=== PATIENT | female | born 1935 ===

== ENCOUNTER 2016-12-24 09:51 | Inpatient (IN) | payer MEDICARE, OTHER ==
[2016-12-24 10:10] VITALS: BMI 29.2
[2016-12-24] MEDS ORDERED: (Novolin R) Insulin Human Regular 100 units/ml vial IV ONE (10:10)
[2016-12-24] MEDS ORDERED: Sodium Chloride 0.9% 1,000 ML IV ONE (10:10)
--- NOTE | 2016-12-24 10:12 | C.PDOC ---
History Of Present Illness The patient, a 81y/o female whose PMHx includes Dialysis (MWF), is brought to the ED by EMS for evaluation of altered mental status. As per family, patient has "not been herself" for the past 2 days. As per EMS, patient's family states that patient's BGL is over 400; family states patient usually appears confused when her BGL is either too high or too low. It is unclear when patient last had her dialysis session. Patient denies fever, pain or any other symptoms at this time. Patient is a poor historian, history obtained via automotive designer. Time Seen by Provider: 12/24/16 10:01 History Per: Patient, EMS, Family, Hvac R Tech History/Exam Limitations: Language Barrier Onset/Duration Of Symptoms: Days Onset Of Symptoms: Cannot Confirm Onset Current Symptoms Are (Timing): Still Present Usual Baseline: Alert Confused Exacerbating Factor(s): Unknown. denies: Fever Additional History Per: Patient, EMS, Family Associated Symptoms: Confused. denies: Fever Past Medical History Reviewed: Historical Data, Nursing Documentation, Vital Signs Vital Signs: Last Vital Signs Temp 98.5 F 12/24/16 12:17 Pulse 55 L 12/24/16 12:17 Resp 17 12/24/16 12:17 BP 182/77 H 12/24/16 12:17 Pulse Ox 96 12/24/16 12:35 - Medical History PMH: Arthritis, Asthma, Bronchitis, Cardia Arrhythmia, CHF, COPD (ASTHMA), Dementia, Depression, Diabetes (type 2), Emphysema, Fractures, HTN, Hypercholesterolemia, Migraine, End Stage Renal Disease (dialysis M,W,F), Chronic Kidney Disease, TIA (a few months ago.) Denies: HIV Surgical History: No Surg Hx - [facility] Procedures ASSISTANCE WITH RESPIRATORY VENTILATION, 24-96 HRS, CPAP (11/01/16) INSERTION OF INFUSION DEV INTO INF VENA CAVA, PERC APPROACH (10/06/15) PERFORMANCE OF URINARY FILTRATION, MULTIPLE (01/22/16) PERFORMANCE OF URINARY FILTRATION, SINGLE (11/01/16) Family History: States: Unknown Family Hx - Social History Hx Tobacco Use: No Hx Alcohol Use: No Hx Substance Use: No - Immunization History Hx Tetanus Toxoid Vaccination: Yes Hx Influenza Vaccination: Yes (06/2015) Hx Pneumococcal Vaccination: Yes (2014) Review Of Systems Except As Marked, All Systems Reviewed And Found Negative. Constitutional: Negative for: Fever Neurological: Positive for: Confusion, Altered Mental Status Physical Exam - Physical Exam Appears: Non-toxic, No Acute Distress Skin: Normal Color, Warm, Dry Head: Atraumatic, Normacephalic Eye(s): bilateral: Normal Inspection, EOMI Oral Mucosa: Moist Chest: Symmetrical, No Deformity, No Tenderness Cardiovascular: Rhythm Regular, No Murmur Respiratory: Normal Breath Sounds, No Rales, No Rhonchi, No Wheezing Gastrointestinal/Abdominal: Soft, No Tenderness, No Guarding, No Rebound Back: Normal Inspection, No Vertebral Tenderness, No Paraspinal Tenderness Extremity: Normal ROM, Capillary Refill (less than 2 seconds) Pulses: Left Dorsalis Pedis: Normal, Right Dorsalis Pedis: Normal Neurological/Psych: Other (alert and oriented x2) Gait: Unable To Assess ED Course And Treatment - Laboratory Results Result Diagrams: 12/24/16 10:37 12/24/16 10:37 Interpretation Of Abnormal: GFR BUN CREAT UNCH PRIOR ECG: Interpreted By Me, Viewed By Me ECG Rhythm: Sinus Bradycardia Interpretation Of ECG: Sinus Bradycardia at rate 52bpm. Nonspecific ST and T wave abnormality. Rate From EC O2 Sat by Pulse Oximetry: 96 (on RA) Pulse Ox Interpretation: Normal - Radiology CXR: Interpreted by Me, Viewed By Me CXR Interpretation: Yes: Other (+pleural effusion ) Progress Note: labs, CT Head, EKG ordered and reviewed. Pt received IV Fluids and Novolin IV. Progress - Re-Evaluation Re-evaluation Note: 12/24/16 12:32 EXAM UNCH PRIOR. VSS D/W DR MCCRACKEN AWARE OF ER FINDINGS WILL ADMIT. CONSULT DR ESCOBAR FOR HD 12/24/16 12:39 D/W DR ESCOBAR AWARE OF ER FINDINGS WILL CONSULT - Data Reviewed Data Reviewed: Lab, Diagnostic imaging, EKG, Old records - Continuity of Care Discussed patient case with:: PMD Disposition Counseled Patient/Family Regarding: Studies Performed, Diagnosis - Disposition Disposition: HOSPITALIZED Disposition Time: 12:33 Condition: STABLE - POA Present On Arrival: Poor Glycemic Control - Clinical Impression Clinical Impression: CHF (congestive heart failure), ESRD (end stage renal disease) on dialysis, Uncontrolled diabetes mellitus - Scribe Statement The provider has reviewed the documentation as recorded by the Scribe (Brenda Dillard) Provider Attestation: All medical record entries made by the Scribe were at my direction and personally dictated by me. I have reviewed the chart and agree that the record accurately reflects my personal performance of the history, physical exam, medical decision making, and the department course for this patient. I have also personally directed, reviewed, and agree with the discharge instructions and disposition. Decision To Admit - Pt Status Changed To: Hospital Disposition Of: Inpatient - Admit Certification Admit to Inpatient:: After my assessment, the patient will require hospitalization for at least two midnights. This is because of the severity of symptoms shown, intensity of services needed, and/or the medical risk in this patient being treated as an outpatient. - InPatient: Physician Admission Certification:: SEE NOTE - . Bed Request Type: Telemetry Admitting Physician: Valdez Mccracken Patient Diagnosis: CHF (congestive heart failure), ESRD (end stage renal disease) on dialysis, Uncontrolled diabetes mellitus
[2016-12-24 10:40] LABS: VENOUS BLOOD GAS PCO2 40 mmHg (40-60); VENOUS BLOOD PH 7.37 (7.32-7.43)
[2016-12-24 10:44] LABS: BASO % 0.8 % (0.0-2.0); EOS # 0.1 K/uL (0.0-0.7); EOS % 1.5 % (0.0-4.0); HEMATOCRIT 37.3 % (34.0-47.0); LYMPH # 1.8 K/uL (1.0-4.3); LYMPH % 36.1 % (20.0-40.0); MEAN CELL VOLUME 84.9 fL (81.0-99.0); MEAN CORPUSCULAR HGB CONC 31.8 g/dL (33.0-37.0); MEAN PLATELET VOLUME 9.8 fL (7.2-11.7); MONO # 0.6 K/uL (0.0-0.8); MONO % 11.8 % (0.0-10.0); RED CELL DISTRIBUTION WIDTH 15.3 % (11.5-14.5)
[2016-12-24] MEDS ORDERED: (Novolin R) Insulin Human Regular 100 units/ml vial IV STA (10:48)
[2016-12-24 10:50] LABS: CHLORIDE 92 mmol/L (98-107)
[2016-12-24] MEDS ORDERED: Sodium Chloride 0.9% 1,000 ML ONE (10:50)
[2016-12-24 10:51] LABS: POTASSIUM 5.7 mmol/L (3.6-5.2); SODIUM 131 mmol/L (132-148)
[2016-12-24 10:53] LABS: BILIRUBIN,TOTAL 1.3 mg/dL (0.2-1.3); CARBON DIOXIDE 22 mmol/L (22-30); GFR AFRICAN-AMERICAN 11
[2016-12-24 10:54] LABS: ALB/GLOB RATIO 1.4 (1.0-2.1); ALKALINE PHOSPHATASE 100 U/L (38-126); ALT/SGPT 27 U/L (9-52); AST/SGOT 27 U/L (14-36); BLOOD UREA NITROGEN 55 mg/dL (7-17); CALCIUM 9.1 mg/dl (8.6-10.4); TOTAL PROTEIN 6.9 g/dL (6.3-8.3)
[2016-12-24] MEDS ORDERED: (Novolin R) Insulin Human Regular 100 units/ml vial ONE (11:11)
[2016-12-24 11:13] LABS: GLUCOSE,RANDOM 449 mg/dL (65-105)
--- NOTE | 2016-12-24 12:28 | CT ---
PROCEDURE: CT scan brain dated 12/24/2016 HISTORY: AMS COMPARISON: Comparison made with prior CT scan brain 08/11/2015. TECHNIQUE: Axial computed tomography images were obtained through the head/brain without intravenous contrast. Radiation dose: Total exam DLP = 737.81 mGy-cm. FINDINGS: HEMORRHAGE: No acute parenchymal, subarachnoid or extra-axial hemorrhage. BRAIN: Mild moderate chronic periventricular white matter ischemic changes. Mild vascular calcifications are present. VENTRICLES: Mild central volume loss evidenced by slight disproportionate enlargement of the ventricles as compared the sulci. CALVARIUM: No acute calvarial fractures. PARANASAL SINUSES: Unremarkable as visualized. No significant inflammatory changes. MASTOID AIR CELLS: Unremarkable as visualized. No inflammatory changes. OTHER FINDINGS: None. IMPRESSION: Mild moderate chronic white matter ischemic changes. Moderate central volume loss.
[2016-12-24] MEDS ORDERED: Calcium Gluconate 4.65 MEQ in Dextrose 5% In Water 100 ML IV STA (12:35)
[2016-12-24] MEDS ORDERED: Sod Polystyrene Sulf 15 gm/60 ml Oral Susp PO ONE ×2 (12:36→20:00)
[2016-12-24] MEDS ORDERED: Calcium Gluconate 4.65 mEq/10 ml Inj IVP ONE (12:45)
[2016-12-24] MEDS ORDERED: Sod Polystyrene Sulf 15 gm/60 ml Oral Susp ONE (12:45)
[2016-12-24] MEDS ORDERED: Calcium Gluconate 4.65 mEq/10 ml Inj ONE (12:46)
[2016-12-24] MEDS ORDERED: Labetalol 5 mg/ml Inj 20ML IVP STA (14:37)
--- NOTE | 2016-12-24 14:53 | RAD ---
PROCEDURE: CHEST RADIOGRAPH, 1 VIEW HISTORY: Diabetic COMPARISON: Comparison chest 10/31/2016 FINDINGS: LUNGS: Patchy bilateral lower lobe atelectatic and or infiltrate changes with elevation right hemidiaphragm possibly due to eventration. There may also be small right-sided effusion PLEURA: No pneumothorax. CARDIOVASCULAR: Cardiomegaly. Re- demonstrated is a a endovascular metallic mesh stent overlying the right lung apex and medial clavicle likely within the right brachiocephalic vein and SVC. OSSEOUS STRUCTURES: No significant abnormalities. VISUALIZED UPPER ABDOMEN: Normal. OTHER FINDINGS: None. IMPRESSION: Patchy bilateral lower lobe atelectatic and or infiltrate changes with elevation right hemidiaphragm possibly due to eventration. There may also be small right-sided effusion
[2016-12-24] MEDS ORDERED: Labetalol 25mg/5ml Syringe IVP STA (17:35)
--- NOTE | 2016-12-24 19:09 | CON ---
DATE: 12/24/2016 CHIEF COMPLAINT AND REASON FOR CONSULTATION: The patient referred by Dr. Mccracken for evaluation of change of bowel status as well as to review the patient 's medication. The patient has history of dementia as well as depression and multiple psych meds. HISTORY OF PRESENT ILLNESS: This is the case an 81-year-old female who is a patient of Dr. Mccracken with history of end-stage renal disease on dialysis since 2016. The patient was brought in by the family as the patient was exhibiting a change in mental status. The patient, as per family, has not been herself. The patient's blood sugar was also noted to be very elevated, over 400. Blood sugar in the Emergency Room was over 400, and patient's family noted that patient usually becomes confused whenever the blood sugar is too low or high. The patient also is supposed to go for dialysis today. She has been going on dialysis 3 times a week. The patient, when seen today, was noted to be very confused and perseverating with her answer, answering only she does not know where she is, but she is not agitated. A review the patient's medications, the patient is on Xanax, Risperdal, Seroquel , Aricept and Remeron. PAST PSYCHIATRIC HISTORY: History of dementia and depression. On multiple psych meds: Xanax, Risperdal, Seroquel, Aricept and Remeron. The patient was taking Xanax 0.5 mg at bedtime as well as Xanax 0.0.25 mg daily p.r.n., Risperdal 3 mg daily, Seroquel 50 mg daily, Remeron 15 mg daily and Aricept 10 mg daily. PAST MEDICAL HISTORY: History of arthritis, history of arrhythmia, CHF, COPD, history of diabetes, hypertension; end-stage renal disease, on dialysis; TIA. DRUG AND ALCOHOL HISTORY: Denies any. ALLERGIES: The patient has no known allergies. PSYCHOSOCIAL HISTORY: The patient lives alone. LIST OF CURRENT MEDICATIONS THAT THE PATIENT WAS TAKING: The patient was on albuterol, hydralazine, Crestor, Ditropan, Novolin, Pepcid, Plavix, Protonix, Renvela, Singulair, Tenormin. She was also put on Risperdal 3 mg daily, Seroquel 10 mg daily, Aricept 10, and Remeron 15 mg daily. VITAL SIGNS: Temperature is 98.5, The first blood pressure earlier was 224/150 ; the last one is 157/80. Respirations are 20, oxygen sat is 95%. The patient had a CAT scan of the head done earlier that showed no acute bleed or any abnormality, but showed mild to moderate chronic white matter changes, moderate central volume loss. Also with her labs, blood sugar on admission was 420. Her ketones are negative. Creatinine is 4.5. Calcium is 9.1. Blood gas: Her O2 saturation was 79.9, WBCs 5, H and H are 11.9/37.2. Liver function tests are within normal limits. REVIEW OF SYSTEMS: GENERAL: The patient is alert, but very confused, conversing in Khmer. The patient is not agitated, but seems to do not know why she is in the hospital and is perseverating with her answers. SKIN: No pruritus. HEENT: No headache, no dizziness. NECK: Supple. RESPIRATORY: No dyspnea. CARDIOVASCULAR: No chest pain. GASTROINTESTINAL: No nausea, no vomiting. EXTREMITIES: The patient moving extremities. MUSCULOSKELETAL: Feels weak. NEUROLOGIC: Alert but very confused. The patient is not able to converse and answer her questions when asked. MENTAL STATUS EXAMINATION: Elderly female who is an 81-year-old, about 5 feet and 2 inches and weight is 160 pounds. The patient is still confused, oriented x 1. Speech spontaneous. Affect is reactive. Mood is dysphoric. Thought process confused. Thought content: No overt psychosis. No suicidal or homicidal ideation. Attention and memory still has seemed to be impaired. Insight and judgment impaired. Impulse control is fair at this time. IMPRESSION: Delirium as well as metabolic encephalopathy secondary to uncontrolled diabetes as well as end-stage renal disease, as well as history of dementia with mood changes. PLAN AND RECOMMENDATION: The patient seen, meds reviewed. On review of patient 's current medical status, we will hold off her psych meds. Will discontinue the Risperdal and Seroquel as both medications are diabetogenic. These medicines can worsen control of blood sugar, as well as can also increase her conflict confusion. We will keep the patient on the Remeron for now. The patient is not clinically depressed; however, the patient is also on Aricept will discontinue the Aricept note, the patient has history of dementia and taking Aricept, but the patient is also taking before Vesicare and oxybutynin, with both medications having very strong anticholinergic side effects and can counteract the effects of the Aricept. Fr now, will streamline the patient's psych medication. Will just keep patient on Xanax 0.5 mg b.i.d. p.r.n. We will slowly reintroduce her psych meds, once patient's blood sugar is better controlled and, once her blood pressure is better controlled. Continue dialysis as ordered. Continue treatment plan as outlined. Tra Duran MD cc: [id number] TT: 12/24/2016 19:08:43 Confirmation # [id number] Dictation # [id number] mn LARRY
[2016-12-24] MEDS: Albuterol 0.083% Inhal Sol (2.5 mg/3 mL) UD INH SCH (20:16)
[2016-12-24] MEDS ORDERED: (Lantus) Insulin Glargine, Recombinant SC SCH (22:00)
[2016-12-24] MEDS ORDERED: (Novolin R) Insulin Human Regular 100 units/ml vial SC SCH (22:00)
--- NOTE | 2016-12-24 23:16 | CP.PCM.CON ---
History of Present Illness - History of Present Illness History of Present Illness: 81 years old Female was brought to the ED because of change in mental status. Known to have an IDDM, an ESRD on HD, she was found to have an elevated serum glucose and a markedly elevated BP. She was given Labetolol 20 mg X 2. Review of Systems - Neurological Neurological: Confusion - Psychiatric Psychiatric: Confusion Past Patient History - Infectious Disease Hx of Infectious Diseases: None - Tetanus Immunizations Tetanus Immunization: Unknown - Past Medical History & Family History Past Medical History?: Yes - Past Social History Smoking Status: Never Smoked Home Situation {Lives}: With Family Domestic Violence: Negative - CARDIAC Hx Cardiac Disorders: Yes Hx Cardia Arrhythmia: Yes Hx Congestive Heart Failure: Yes Hx Hypercholesterolemia: Yes Hx Hypertension: Yes - PULMONARY Hx Respiratory Disorders: Yes Hx Asthma: Yes Hx Bronchitis: Yes Hx Chronic Obstructive Pulmonary Disease (COPD): Yes (ASTHMA) Hx Emphysema: Yes - NEUROLOGICAL Hx Neurological Disorder: Yes Hx Dementia: Yes Hx Migraine: Yes Hx Transient Ischemic Attacks (TIA): Yes (a few months ago.) - HEENT Hx HEENT Problems: Yes Hx Blind: Yes (Left eye.) - RENAL Hx Chronic Kidney Disease: Yes Hx Dialysis: Yes (MWF) Type of Dialysis Access: Right AV fistula Date of Last Dialysis Treatment: 12/21/16 - ENDOCRINE/METABOLIC Hx Endocrine Disorders: Yes Hx Diabetes Mellitus Type 2: Yes - HEMATOLOGICAL/ONCOLOGICAL Hx Blood Disorders: No Hx Human Immunodeficiency Virus (HIV): No - INTEGUMENTARY Hx Dermatological Problems: Yes Hx Cellulitis: Yes Hx Eczema: Yes - MUSCULOSKELETAL/RHEUMATOLOGICAL Hx Musculoskeletal Disorders: Yes Hx Falls: Yes - GASTROINTESTINAL Hx Gastrointestinal Disorders: Yes Hx Constipation: Yes Hx Gastroesophageal Reflux: Yes Hx Hemorrhoids: Yes - GENITOURINARY/GYNECOLOGICAL Hx Genitourinary Disorders: Yes Hx Urinary Tract Infection: Yes - PSYCHIATRIC Hx Psychophysiologic Disorder: Yes Hx Depression: Yes Hx Substance Use: No - SURGICAL HISTORY Hx Surgeries: Yes Hx Arteriovenous Shunt: Yes Other/Comment: AV shunt to right upper arm - ANESTHESIA Hx Anesthesia: Yes Hx Anesthesia Reactions: No Meds Allergies/Adverse Reactions: Allergies Allergy/AdvReac Type Severity Reaction Status Date / Time No Known Allergies Allergy Verified 11/05/16 21:00 - Medications Medications: Current Medications Albuterol Sulfate (Albuterol 0.083% Inhal Luisa (2.5 Mg/3 Ml) Ud) 2.5 mg INH RQ6 COUNT INCLUDES THE [facility] Last Admin: 12/24/16 20:16 Dose: 2.5 mg Alprazolam (Xanax) 0.5 mg PO BID PRN PRN Reason: Anxiety Atenolol (Tenormin) 50 mg PO DAILY COUNT INCLUDES THE [facility] Last Admin: 12/24/16 21:58 Dose: 50 mg Clopidogrel Bisulfate (Plavix) 75 mg PO DAILY COUNT INCLUDES THE [facility] Last Admin: 12/24/16 18:21 Dose: 75 mg Famotidine (Pepcid) 20 mg PO DAILY COUNT INCLUDES THE [facility] Hydralazine HCl (Apresoline) 25 mg PO BID COUNT INCLUDES THE [facility] Insulin Aspart (Novolog) 18 unit SC DAILY COUNT INCLUDES THE [facility] Insulin Glargine (Lantus) 10 unit SC HS COUNT INCLUDES THE [facility] Last Admin: 12/24/16 21:58 Dose: 10 unit Insulin Human Regular (Novolin R) 0 unit SC ACHS COUNT INCLUDES THE [facility] PRN Reason: Protocol Last Admin: 12/24/16 21:39 Dose: Not Given Montelukast Sodium (Singulair) 10 mg PO DAILY COUNT INCLUDES THE [facility] Oxybutynin Chloride (Ditropan Tab) 5 mg PO DAILY COUNT INCLUDES THE [facility] Pantoprazole Sodium (Protonix Ec Tab) 40 mg PO DAILY COUNT INCLUDES THE [facility] Rosuvastatin Calcium (Crestor) 5 mg PO HS COUNT INCLUDES THE [facility] Last Admin: 12/24/16 21:58 Dose: 5 mg Sevelamer Carbonate (Renvela) 800 mg PO TIDCC COUNT INCLUDES THE [facility] Physical Exam - Constitutional Appears: No Acute Distress, Chronically Ill - Head Exam Head Exam: NORMAL INSPECTION - Eye Exam Eye Exam: Normal appearance - ENT Exam ENT Exam: Normal Exam - Neck Exam Neck exam: Positive for: Normal Inspection - Respiratory Exam Respiratory Exam: Clear to Auscultation Bilateral, NORMAL BREATHING PATTERN - Cardiovascular Exam Cardiovascular Exam: REGULAR RHYTHM - GI/Abdominal Exam GI & Abdominal Exam: Normal Bowel Sounds, Soft - Rectal Exam Rectal Exam: Deferred - Extremities Exam Extremities exam: Positive for: normal inspection - Back Exam Back exam: NORMAL INSPECTION - Neurological Exam Neurological exam: Alert, Normal Gait, Oriented x3, Reflexes Normal - Psychiatric Exam Psychiatric exam: Agitated - Skin Skin Exam: Dry, Intact, Normal Color, Warm Results - Vital Signs Recent Vital Signs: Last Vital Signs Temp 98.5 F 12/24/16 12:17 Pulse 76 12/24/16 17:09 Resp 20 12/24/16 15:29 BP 159/67 H 12/24/16 18:49 Pulse Ox 95 12/24/16 15:29 - Labs Result Diagrams: 12/24/16 10:37 12/24/16 10:37 Labs: Laboratory Results - last 24 hr 12/24/16 12/24/16 12/24/16 12:38 17:46 21:06 POC Glucose (mg/dL) 298 H 259 H 326 H Assessment & Plan (1) Chronic kidney disease with end stage renal failure on dialysis Assessment and Plan: as per nephrologists. Status: Acute Priority: Medium (2) Confusion Assessment and Plan: To consider CVA. Status: Acute Priority: High (3) Hyperkalemia Assessment and Plan: Kayexate PO for now. Status: Acute Priority: Medium (4) Uncontrolled hypertension Assessment and Plan: To continue Hydralzine, Atenolol. May add Gaston inhibitors or ARB if BP remains elevated. Status: Acute Priority: Medium
--- NOTE | 2016-12-24 23:21 | CP.PCM.HP ---
History of Present Illness - History of Present Illness History of Present Illness: 81 year old female dialysis patient and diabetic who was taken to the [facility] ER when she became confused and disorient. Patient was extremely confused and disoriented. It is not known when she had her last dialysis treatment. [facility] requested with her manager transmission Dr Diaz. Present on Admission - Present on Admission Any Indicators Present on Admission: No History of DVT/PE: No History of Uncontrolled Diabetes: Yes Urinary Catheter: No Decubitus Ulcer Present: No History Surgical Site Infection Following: None Review of Systems - Review of Systems Systems not reviewed;Unavailable: Altered Mental Status - EENT Eyes: Loss of Vision Ears: Dizziness - Gastrointestinal Gastrointestinal: Constipation - Genitourinary Genitourinary: Urinary Incontinence - Reproductive: Female Reproductive:Female: Post Menopausal - Musculoskeletal Musculoskeletal: Arthralgias - Integumentary Integumentary: Dry Skin - Neurological Neurological: Behavioral Changes - Psychiatric Psychiatric: Depression - Endocrine Endocrine: Fatigue Past Patient History - Infectious Disease Hx of Infectious Diseases: None - Tetanus Immunizations Tetanus Immunization: Unknown, Up to Date - Past Medical History & Family History Past Medical History?: Yes - Past Social History Smoking Status: Never Smoked Chewing Tobacco Use: No Cigar Use: No - CARDIAC Hx Cardiac Disorders: Yes Hx Cardia Arrhythmia: Yes Hx Congestive Heart Failure: Yes Hx Hypercholesterolemia: Yes Hx Hypertension: Yes - PULMONARY Hx Respiratory Disorders: Yes Hx Asthma: Yes Hx Bronchitis: Yes Hx Chronic Obstructive Pulmonary Disease (COPD): Yes (ASTHMA) Hx Emphysema: Yes - NEUROLOGICAL Hx Neurological Disorder: Yes Hx Dementia: Yes Hx Migraine: Yes Hx Transient Ischemic Attacks (TIA): Yes (a few months ago.) - HEENT Hx HEENT Problems: Yes Hx Blind: Yes (Left eye.) - RENAL Hx Chronic Kidney Disease: Yes Hx Dialysis: Yes (MWF) Type of Dialysis Access: Right AV fistula Date of Last Dialysis Treatment: 12/21/16 - ENDOCRINE/METABOLIC Hx Endocrine Disorders: Yes Hx Diabetes Mellitus Type 2: Yes - HEMATOLOGICAL/ONCOLOGICAL Hx Blood Disorders: No Hx Human Immunodeficiency Virus (HIV): No - INTEGUMENTARY Hx Dermatological Problems: Yes Hx Cellulitis: Yes Hx Eczema: Yes - MUSCULOSKELETAL/RHEUMATOLOGICAL Hx Musculoskeletal Disorders: Yes Hx Falls: Yes - GASTROINTESTINAL Hx Gastrointestinal Disorders: Yes Hx Constipation: Yes Hx Gastroesophageal Reflux: Yes Hx Hemorrhoids: Yes - GENITOURINARY/GYNECOLOGICAL Hx Genitourinary Disorders: Yes Hx Urinary Tract Infection: Yes - PSYCHIATRIC Hx Psychophysiologic Disorder: Yes Hx Depression: Yes Hx Substance Use: No - SURGICAL HISTORY Hx Surgeries: Yes Hx Arteriovenous Shunt: Yes Other/Comment: AV shunt to right upper arm - ANESTHESIA Hx Anesthesia: Yes Hx Anesthesia Reactions: No Meds Allergies/Adverse Reactions: Allergies Allergy/AdvReac Type Severity Reaction Status Date / Time No Known Allergies Allergy Verified 11/05/16 21:00 Physical Exam - Constitutional Appears: Agitated - Head Exam Head Exam: NORMAL INSPECTION - Eye Exam Eye Exam: Normal appearance Pupil Exam: NORMAL ACCOMODATION - ENT Exam ENT Exam: Normal Exam - Neck Exam Neck exam: Positive for: Normal Inspection - Cardiovascular Exam Cardiovascular Exam: REGULAR RHYTHM - GI/Abdominal Exam GI & Abdominal Exam: Normal Bowel Sounds - Rectal Exam Rectal Exam: Deferred - Exam External exam: NORMAL EXTERNAL EXAM - Extremities Exam Extremities exam: Positive for: tenderness - Back Exam Back exam: NORMAL INSPECTION - Neurological Exam Neurological exam: Altered - Psychiatric Exam Psychiatric exam: Agitated - Skin Skin Exam: Dry Results - Vital Signs Recent Vital Signs: Last Vital Signs Temp 98.5 F 12/24/16 12:17 Pulse 76 12/24/16 17:09 Resp 20 12/24/16 15:29 BP 159/67 H 12/24/16 18:49 Pulse Ox 95 12/24/16 15:29 - Labs Result Diagrams: 12/24/16 10:37 12/24/16 10:37 Labs: Laboratory Results - last 24 hr 12/24/16 12/24/16 12/24/16 12:38 17:46 21:06 POC Glucose (mg/dL) 298 H 259 H 326 H
--- NOTE | 2016-12-24 23:51 | CP.PCM.CON ---
History of Present Illness - History of Present Illness History of Present Illness: REASONS FOR CONSULT : ESRD ON HD M W F ANEMIA OF CKD HYPERKALEMIA History Of Present Illness The patient, a 81y/o female whose PMHx includes Dialysis (MWF), is brought to the ED by EMS for evaluation of altered mental status. As per family, patient has "not been herself" for the past 2 days. As per EMS, patient's family states that patient's BGL is over 400; family states patient usually appears confused when her BGL is either too high or too low. It is unclear when patient last had her dialysis session. Patient denies fever, pain or any other symptoms at this time. Patient is a poor historian, history obtained via environmental epidemiologist. Time Seen by Provider: 12/24/16 10:01 History Per: Patient, EMS, Family, Pound Attendant History/Exam Limitations: Language Barrier Onset/Duration Of Symptoms: Days Onset Of Symptoms: Cannot Confirm Onset Current Symptoms Are (Timing): Still Present Usual Baseline: Alert Confused Exacerbating Factor(s): Unknown. denies: Fever Additional History Per: Patient, EMS, Family Associated Symptoms: Confused. denies: Fever Past Patient History - Infectious Disease Hx of Infectious Diseases: None - Tetanus Immunizations Tetanus Immunization: Unknown, Up to Date - Past Medical History & Family History Past Medical History?: Yes - Past Social History Smoking Status: Never Smoked Chewing Tobacco Use: No Cigar Use: No - CARDIAC Hx Cardiac Disorders: Yes Hx Cardia Arrhythmia: Yes Hx Congestive Heart Failure: Yes Hx Hypercholesterolemia: Yes Hx Hypertension: Yes - PULMONARY Hx Respiratory Disorders: Yes Hx Asthma: Yes Hx Bronchitis: Yes Hx Chronic Obstructive Pulmonary Disease (COPD): Yes (ASTHMA) Hx Emphysema: Yes - NEUROLOGICAL Hx Neurological Disorder: Yes Hx Dementia: Yes Hx Migraine: Yes Hx Transient Ischemic Attacks (TIA): Yes (a few months ago.) - HEENT Hx HEENT Problems: Yes Hx Blind: Yes (Left eye.) - RENAL Hx Chronic Kidney Disease: Yes Hx Dialysis: Yes (MWF) Type of Dialysis Access: Right AV fistula Date of Last Dialysis Treatment: 12/21/16 - ENDOCRINE/METABOLIC Hx Endocrine Disorders: Yes Hx Diabetes Mellitus Type 2: Yes - HEMATOLOGICAL/ONCOLOGICAL Hx Blood Disorders: No Hx Human Immunodeficiency Virus (HIV): No - INTEGUMENTARY Hx Dermatological Problems: Yes Hx Cellulitis: Yes Hx Eczema: Yes - MUSCULOSKELETAL/RHEUMATOLOGICAL Hx Musculoskeletal Disorders: Yes Hx Falls: Yes - GASTROINTESTINAL Hx Gastrointestinal Disorders: Yes Hx Constipation: Yes Hx Gastroesophageal Reflux: Yes Hx Hemorrhoids: Yes - GENITOURINARY/GYNECOLOGICAL Hx Genitourinary Disorders: Yes Hx Urinary Tract Infection: Yes - PSYCHIATRIC Hx Psychophysiologic Disorder: Yes Hx Depression: Yes Hx Substance Use: No - SURGICAL HISTORY Hx Surgeries: Yes Hx Arteriovenous Shunt: Yes Other/Comment: AV shunt to right upper arm - ANESTHESIA Hx Anesthesia: Yes Hx Anesthesia Reactions: No Meds Allergies/Adverse Reactions: Allergies Allergy/AdvReac Type Severity Reaction Status Date / Time No Known Allergies Allergy Verified 11/05/16 21:00 - Medications Medications: Current Medications Albuterol Sulfate (Albuterol 0.083% Inhal Luisa (2.5 Mg/3 Ml) Ud) 2.5 mg INH RQ6 [facility] Last Admin: 12/24/16 20:16 Dose: 2.5 mg Alprazolam (Xanax) 0.5 mg PO BID PRN PRN Reason: Anxiety Atenolol (Tenormin) 50 mg PO DAILY [facility] Last Admin: 12/24/16 21:58 Dose: 50 mg Clopidogrel Bisulfate (Plavix) 75 mg PO DAILY [facility] Last Admin: 12/24/16 18:21 Dose: 75 mg Famotidine (Pepcid) 20 mg PO DAILY [facility] Hydralazine HCl (Apresoline) 25 mg PO BID [facility] Insulin Aspart (Novolog) 18 unit SC DAILY [facility] Insulin Glargine (Lantus) 10 unit SC HS [facility] Last Admin: 12/24/16 21:58 Dose: 10 unit Insulin Human Regular (Novolin R) 0 unit SC [facility] PRN Reason: Protocol Last Admin: 12/24/16 21:39 Dose: Not Given Montelukast Sodium (Singulair) 10 mg PO DAILY [facility] Oxybutynin Chloride (Ditropan Tab) 5 mg PO DAILY [facility] Pantoprazole Sodium (Protonix Ec Tab) 40 mg PO DAILY [facility] Rosuvastatin Calcium (Crestor) 5 mg PO HS [facility] Last Admin: 12/24/16 21:58 Dose: 5 mg Sevelamer Carbonate (Renvela) 800 mg PO TIDCC [facility] Results - Vital Signs Recent Vital Signs: Last Vital Signs Temp 98.4 F 12/24/16 23:00 Pulse 71 12/24/16 23:25 Resp 20 12/24/16 23:25 BP 160/81 H 12/24/16 23:30 Pulse Ox 96 12/24/16 23:00 - Labs Result Diagrams: 12/24/16 10:37 12/24/16 10:37 Labs: Laboratory Results - last 24 hr 12/24/16 12/24/16 12/24/16 12:38 17:46 21:06 POC Glucose (mg/dL) 298 H 259 H 326 H Assessment & Plan - Assessment and Plan (Free Text) Assessment: ESRD ON HD Ira Villasenor WILL SCHEDULE HER FOR HD TODAY C/O CURRENT CARE D/W HD - RN .. ORDERS GIVEN TO HER - Date & Time Date: 12/24/16 Time: 15:00
[2016-12-25] MEDS: Albuterol 0.083% Inhal Sol (2.5 mg/3 mL) UD INH SCH ×4 (01:16→20:56)
[2016-12-25 07:21] LABS: BASO % 0.6 % (0.0-2.0); EOS # 0.1 K/uL (0.0-0.7); EOS % 1.7 % (0.0-4.0); HEMATOCRIT 37.1 % (34.0-47.0); LYMPH # 1.3 K/uL (1.0-4.3); LYMPH % 20.6 % (20.0-40.0); MEAN CORPUSCULAR HEMOGLOBIN 27.1 pg (27.0-31.0); MEAN CORPUSCULAR HGB CONC 32.3 g/dL (33.0-37.0); MEAN PLATELET VOLUME 9.3 fL (7.2-11.7); MONO # 0.8 K/uL (0.0-0.8); MONO % 11.5 % (0.0-10.0); RED CELL DISTRIBUTION WIDTH 15.3 % (11.5-14.5); WHITE BLOOD COUNT 6.5 K/uL (4.8-10.8)
[2016-12-25 07:23] LABS: POTASSIUM 4.3 mmol/L (3.6-5.2)
[2016-12-25 07:25] LABS: ALB/GLOB RATIO 1.3 (1.0-2.1); TOTAL PROTEIN 6.8 g/dL (6.3-8.3)
[2016-12-25 07:26] LABS: CALCIUM 8.8 mg/dl (8.6-10.4)
[2016-12-25] MEDS: (Novolog) Insulin Aspart, Recombinant 100 u/ml 10 ml vial SC SCH ×7 (07:54→22:49)
[2016-12-25 07:56] LABS: THYROID STIMULATING HORMONE 0.04 mIU/L (0.46-4.68)
[2016-12-25] MEDS ORDERED: (Novolog) Insulin Aspart, Recombinant 100 u/ml 10 ml vial SC SCH (10:00)
[2016-12-25] MEDS ORDERED: Pantoprazole 40 mg EC Tab PO SCH (10:00)
--- NOTE | 2016-12-25 10:00 | CON ---
DATE: 12/25/2016 ROOM: 665 HISTORY OF PRESENT ILLNESS: This is an 81-year-old female with known history of type 2 insulin-requi ring diabetes, now admitted with congestive heart failure and is being referred for diabetic evaluati on because of supervening hyperglycemic accelerations as noted thereof. PAST MEDICAL HISTORY: As mentioned above, history of type 2 insulin-requiring diabetes on a combinat ion of Lantus given as 28 units at bedtime with NovoLog given at 18 units at breakfast time and a penny iable dosing during the day depending on her mealtimes as noted by the family. History of hypertensi on and dyslipidemia, history of diabetic retinopathy, polyneuropathy, and nephropathy with end-stage renal disease and dialysis dependence. History of coronary artery disease and peripheral arterial di sease and vasculopathy. History of chronic obstructive lung disease and previous admissions for acut e exacerbation of the same, history of senile dementia of the Alzheimer's type, history of a previous cerebrovascular event with a TIA with no residual weakness, history of coronary artery disease and c ardiac tachyarrhythmias, history of peripheral arterial disease and vasculopathy, also history of gen eralized anxiety and depression, on psychotropic medications. FAMILY HISTORY: Positive for hypertension and diabetes. SOCIAL HISTORY: The patient has a supportive family. No known substance use. REVIEW OF SYSTEMS: Not possible at this time as the patient has altered mental status with recent michelle uts of confusion, disorientation and even agitation. At this time, no apparent recent chest pains or palpitations or PNDs, but was noted by the family to have progressive shortness of breath with parox ysmal nocturnal dyspnea and dyspnea at rest. Her oral intake has been variable and suboptimal with n ausea, dyspepsia and episodic vomiting episodes. PHYSICAL EXAMINATION: GENERAL: This is an average built female in no apparent distress. VITAL SIGNS: Blood pressure of 160/100, pulse of 70 beats per minute and regular, temperature 98, re spirations 20. Height is 5 foot 2 inches. Weight is 160 pounds. HEENT: Head normocephalic. Eyes anicteric with pink conjunctivae. Fundoscopy not possible at this time. Ears, nose and throat otherwise normal. NECK: Supple. Thyroid gland is normal in size. No carotid bruits or any cervical adenopathy. CARDIOPULMONARY: There is an adynamic precordium. S1, S2 is rapid and regular. LUNGS: Show scattered rhonchi and bibasilar rales. ABDOMEN: Flat, soft with positive bowel sounds. EXTREMITIES: There is +2 bipedal edema. Pulses are +2 bilaterally. LABORATORY DATA: Initial chemistries showed a BUN of 55, sodium 131, potassium 5.7, chloride 92, CO2 22, glucose 449 and creatinine 4.5. Her glucose levels have ranged from 298-326-414 mg/dL. ASSESSMENT: This is an ____ 81-year-old female with uncontrolled and decompensated type 2 insulin-re quiring diabetes with hyperosmolar hyperglycemic state and supervening hyperglycemic accelerations re lated to a subtherapeutic insulin regimen as noted. There is also significant evidence of diabetic r etinopathy, polyneuropathy, and nephropathy with end-stage renal disease and dialysis dependence. Th ere are also significant diabetic macrovascular complications of cerebrovascular disease with a recen t transient ischemic attack and coronary artery disease with underlying peripheral arterial disease a nd vasculopathy. PLAN OF MANAGEMENT: Will modify her current basal and bolus insulin regimen to a more therapeutic an d physiologic drug combination as ordered. Will increase her Lantus to 24 units subQ at bedtime linette y to start tomorrow. Will also modify her NovoLog and give her NovoLog at 12 units subcutaneously t. i.d. before meals as ordered. Will modify the coverage scale to obviate hypoglycemia and detailed or ders have been given. Will obtain a hemoglobin A1c to confirm her prior glycemic control, and baseli ne thyroid function studies will be ordered. Will obtain serial chemistries and supplement according ly as needed. Will follow. Bella Gold MD cc: [id number] TT: 12/25/2016 09:59:26 Confirmation # [id number] Dictation # [id number] mn
--- NOTE | 2016-12-25 11:26 | PN ---
DATE: 12/25/2016 FOLLOWUP PROGRESS NOTE SUBJECTIVE: The patient is seen. The patient is noted to be very drowsy today , less confused. The patient states that she feels very tired. The patient had dialysis earlier. Blood pressure is still noted to be elevated, as well as her blood sugar. Her blood sugar this morning was 290, and her blood pressure is still 181/83, but the patient is not having bouts of agitation. The patient was not given any psych meds, according to the nurse, and all her psych medications were held with her change in mental status. PHYSICAL EXAMINATION: VITAL SIGNS: Temperature is 98.7, pulse rate 66, blood pressure 181/83, respirations 18. Oxygen sat is 99%. REVIEW OF SYSTEMS: GENERAL: The patient is very drowsy, seen in her room, but cooperative with care provided by nurses. SKIN: No pruritus. HEENT: No headache, no dizziness. NECK: Supple. RESPIRATORY: No dyspnea. CARDIOVASCULAR: No chest pain. GASTROINTESTINAL: Appetite is variable. No nausea, no vomiting. EXTREMITIES: The patient is moving extremities. NEUROLOGIC: Alert with periods of confusion, noted to be lethargic. GENITOURINARY: No dysuria. MENTAL STATUS EXAMINATION: Elderly female looks stated age, oriented x 2, conversing in Lao. Mood is dysphoric. Affect is restricted. Speech is slow. Thought process: Confused off and on. Thought content: No paranoia. No suicidal or homicidal ideation. Attention and memory seem to be limited. Insight and judgment limited. Impulse control is guarded at this time. IMPRESSION: History of dementia, as well as superimposed metabolic encephalopathy secondary to uncontrolled diabetes, as well as end-stage renal disease. PLAN AND RECOMMENDATIONS: The patient is seen, meds reviewed. We will keep the patient off standing psych meds, as well as we will just keep the patient p.r.n. for now. We will slowly reintroduce her meds, once the patient's mental status is much better, and her BS and BP are better controlled. We will follow up the patient accordingly. Tra Duran MD cc: [phone] TT: 12/25/2016 11:25:52 Confirmation # [id number] Dictation # [id number] MTDD
--- NOTE | 2016-12-25 14:44 | RAD ---
PROCEDURE: CHEST RADIOGRAPH, 1 VIEW HISTORY: CHF COMPARISON: 12/24/2016 FINDINGS: Stable position of right subclavian endovascular stent. LUNGS: There are persistent low lung volumes. There is persistent right basilar airspace disease. PLEURA: No pneumothorax or pleural fluid seen. CARDIOVASCULAR: Normal. OSSEOUS STRUCTURES: There is degenerative osteoarthrosis in the right acromioclavicular and glenohumeral joints. VISUALIZED UPPER ABDOMEN: Normal. OTHER FINDINGS: None. IMPRESSION: Persistent low lung volumes and right basilar atelectasis/pneumonia.
--- NOTE | 2016-12-25 15:45 | CP.PCM.PN ---
Subjective - Date & Time of Evaluation Date of Evaluation: 12/25/16 Time of Evaluation: 15:43 - Subjective Subjective: Patient has no complaint. Calm today. Had HD last night. BP normal now. Objective - Vital Signs/Intake and Output Vital Signs (last 24 hours): Temp Pulse Resp BP Pulse Ox 98.7 F 73 18 133/79 98 12/25/16 07:35 12/25/16 12:14 12/25/16 07:35 12/25/16 10:10 12/25/16 12:14 Intake and Output: 12/25/16 12/25/16 06:59 18:59 Intake Total 450 Balance 450 - Medications Medications: Current Medications Albuterol Sulfate (Albuterol 0.083% Inhal Luisa (2.5 Mg/3 Ml) Ud) 2.5 mg INH RQ6 [facility] Last Admin: 12/25/16 13:35 Dose: 2.5 mg Alprazolam (Xanax) 0.5 mg PO BID PRN PRN Reason: Anxiety Atenolol (Tenormin) 50 mg PO DAILY [facility] Last Admin: 12/25/16 10:23 Dose: 50 mg Clopidogrel Bisulfate (Plavix) 75 mg PO DAILY [facility] Last Admin: 12/25/16 10:23 Dose: 75 mg Famotidine (Pepcid) 20 mg PO DAILY [facility] Last Admin: 12/25/16 10:23 Dose: 20 mg Heparin Sodium (Porcine) (Heparin) 5,000 units SC Q12 [facility] Last Admin: 12/25/16 10:30 Dose: 5,000 units Hydralazine HCl (Apresoline) 25 mg PO BID [facility] Last Admin: 12/25/16 10:22 Dose: 25 mg Insulin Aspart (Novolog) 0 unit SC ACHS [facility] PRN Reason: Protocol Last Admin: 12/25/16 12:19 Dose: 3 unit Insulin Aspart (Novolog) 14 unit SC AC [facility] Insulin Glargine (Lantus) 30 unit SC HS [facility] Montelukast Sodium (Singulair) 10 mg PO HS [facility] Oxybutynin Chloride (Ditropan Tab) 5 mg PO DAILY [facility] Last Admin: 12/25/16 10:22 Dose: 5 mg Rosuvastatin Calcium (Crestor) 5 mg PO HS [facility] Last Admin: 12/24/16 21:58 Dose: 5 mg Fluticasone/Salmeterol (Advair Diskus 250/50) 1 puff INH RQ12 [facility] Sevelamer Carbonate (Renvela) 800 mg PO TIDCC [facility] Last Admin: 12/25/16 12:20 Dose: 800 mg - Labs Labs: 12/25/16 07:09 12/25/16 07:09 - Constitutional Appears: No Acute Distress, Chronically Ill - Head Exam Head Exam: NORMAL INSPECTION - Eye Exam Eye Exam: Normal appearance - ENT Exam ENT Exam: Normal Exam - Neck Exam Neck Exam: Normal Inspection - Respiratory Exam Respiratory Exam: Clear to Ausculation Bilateral, NORMAL BREATHING PATTERN - Cardiovascular Exam Cardiovascular Exam: REGULAR RHYTHM - GI/Abdominal Exam GI & Abdominal Exam: Soft, Normal Bowel Sounds - Rectal Exam Rectal Exam: Deferred - Extremities Exam Extremities Exam: Normal Inspection - Back Exam Back Exam: NORMAL INSPECTION - Neurological Exam Neurological Exam: Alert, Awake - Psychiatric Exam Psychiatric exam: Flat Affect - Skin Skin Exam: Dry, Intact, Warm Assessment and Plan (1) Chronic kidney disease with end stage renal failure on dialysis Assessment & Plan: HD as per Filler Spreader. Status: Chronic (2) Confusion Status: Resolved (3) Hyperkalemia Status: Resolved (4) Uncontrolled hypertension Status: Resolved
--- NOTE | 2016-12-25 17:25 | CON ---
DATE: 12/25/2016 Thank you for asking me to see this patient. I have interviewed and examined the patient, and review ed the lab data, and have noted in a detailed consult on the consult sheet in the chart. Please see details on the consult sheet. Orders have been written. Francisco Javier Guaman MD cc: [id number] TT: 12/25/2016 17:24:24 Confirmation # [id number] Dictation # [id number] jn
--- NOTE | 2016-12-25 19:12 | CP.PCM.PN ---
Subjective - Date & Time of Evaluation Date of Evaluation: 12/25/16 Time of Evaluation: 15:00 - Subjective Subjective: SEEN ON RENAL F/U ON HD M W F LOOKS MUCH BETTER Objective - Vital Signs/Intake and Output Vital Signs (last 24 hours): Temp Pulse Resp BP Pulse Ox 99.5 F 75 20 136/66 94 L 12/25/16 15:52 12/25/16 16:30 12/25/16 15:52 12/25/16 15:52 12/25/16 15:52 Intake and Output: 12/25/16 12/26/16 18:59 06:59 Intake Total 450 Balance 450 - Medications Medications: Current Medications Albuterol Sulfate (Albuterol 0.083% Inhal Luisa (2.5 Mg/3 Ml) Ud) 2.5 mg INH RQ6 [facility] Last Admin: 12/25/16 13:35 Dose: 2.5 mg Alprazolam (Xanax) 0.5 mg PO BID PRN PRN Reason: Anxiety Atenolol (Tenormin) 50 mg PO DAILY [facility] Last Admin: 12/25/16 10:23 Dose: 50 mg Clopidogrel Bisulfate (Plavix) 75 mg PO DAILY [facility] Last Admin: 12/25/16 10:23 Dose: 75 mg Famotidine (Pepcid) 20 mg PO DAILY [facility] Last Admin: 12/25/16 10:23 Dose: 20 mg Heparin Sodium (Porcine) (Heparin) 5,000 units SC Q12 [facility] Last Admin: 12/25/16 10:30 Dose: 5,000 units Hydralazine HCl (Apresoline) 25 mg PO BID [facility] Last Admin: 12/25/16 18:14 Dose: 25 mg Insulin Aspart (Novolog) 0 unit SC ACHS [facility] PRN Reason: Protocol Last Admin: 12/25/16 18:14 Dose: Not Given Insulin Aspart (Novolog) 14 unit SC AC [facility] Last Admin: 12/25/16 18:14 Dose: 14 unit Insulin Glargine (Lantus) 30 unit SC HS [facility] Montelukast Sodium (Singulair) 10 mg PO HS [facility] Oxybutynin Chloride (Ditropan Tab) 5 mg PO DAILY [facility] Last Admin: 12/25/16 10:22 Dose: 5 mg Rosuvastatin Calcium (Crestor) 5 mg PO HS [facility] Last Admin: 12/24/16 21:58 Dose: 5 mg Fluticasone/Salmeterol (Advair Diskus 250/50) 1 puff INH RQ12 [facility] Sevelamer Carbonate (Renvela) 800 mg PO TIDCC [facility] Last Admin: 12/25/16 18:14 Dose: 800 mg - Labs Labs: 12/25/16 07:09 12/25/16 07:09 Assessment and Plan - Assessment and Plan (Free Text) Assessment: ESRD ON HD M W C/O [facility]
--- NOTE | 2016-12-25 20:12 | PN ---
DATE: 12/25/2016 ROOM 665 This is an 81-year-old female with recent uncontrolled type 2 insulin-requiring diabetes with marked hyperglycemic accelerations, and is now being followed closely for metabolic management. Her glycemi c levels are fluctuating as noted today with glucose values ranging from 290-363 mg/dL. Her hemoglob in A1c is extremely elevated at 10.1% as noted, and this is indicative of suboptimal metabolic contro l on the outpatient prior to this admission, with a subtherapeutic insulin regimen as given. Her latest chemistry showed a BUN of 25, sodium 137, potassium 4.3, chloride 93, CO2 of 26, glucose 2 58, and creatinine 3.4. ASSESSMENT: This is an 81-year-old female with uncontrolled and decompensated type 2 insulin-requiri ng diabetes with marked hyperglycemic accelerations related to a subtherapeutic insulin regimen. She also has diabetic microvascular complications of retinopathy, polyneuropathy, and nephropathy with e nd-stage renal disease and dialysis dependence. Moreover, she has diabetic macrovascular complicatio ns of cerebrovascular disease, coronary artery disease, peripheral arterial disease, and vasculopathy . PLAN OF MANAGEMENT: Will modify her current basal and bolus insulin regimen and increase the Lantus to 30 units subQ at bedtime daily to start tonight. Will also increase the NovoLog to 14 units subQ t.i.d. before meals to start at dinnertime today as ordered. Will continue the low-dose correction s kamini using NovoLog insulin as given to obviate hypoglycemia. Will obtain serial chemistries and supp lement accordingly as needed. Will also consult our diabetic nurse educator to reinforce her insulin self-administration techniques at this time. Will consult our dietitian for nutritional counseling, especially in the light of underlying renal failure, and healthier food choices with low phosphorus intake as noted. Will follow and advise accordingly. Bella Gold MD cc: [id number] TT: 12/25/2016 20:12:04 Confirmation # [id number] Dictation # [id number] jn
--- NOTE | 2016-12-25 20:13 | CARD ---
APPROVED REPORT EKG Measurement Heart [id number] SD [id number] <Conclusion> Sinus bradycardia Possible Left atrial enlargement Left axis deviation Left ventricular hypertrophy Nonspecific ST and T wave abnormality Baseline artifact Abnormal ECG
[2016-12-25] MEDS: Fluticasone-Salmeterol 250-50mcg Diskus INH SCH (20:56)
--- NOTE | 2016-12-25 21:52 | CP.PCM.PN ---
Subjective - Date & Time of Evaluation Date of Evaluation: 12/25/16 Time of Evaluation: 16:45 - Subjective Subjective: Patient much improved and calm. Dialysis done last night. Creatinine 3.4. Blood presure in normal range. Patient evaluated by Dr Gold. Objective - Vital Signs/Intake and Output Vital Signs (last 24 hours): Temp Pulse Resp BP Pulse Ox 99.5 F 75 20 136/66 94 L 12/25/16 15:52 12/25/16 16:30 12/25/16 15:52 12/25/16 15:52 12/25/16 15:52 Intake and Output: 12/25/16 12/26/16 18:59 06:59 Intake Total 450 Balance 450 - Medications Medications: Current Medications Albuterol Sulfate (Albuterol 0.083% Inhal Luisa (2.5 Mg/3 Ml) Ud) 2.5 mg INH RQ6 [facility] Last Admin: 12/25/16 20:56 Dose: 2.5 mg Alprazolam (Xanax) 0.5 mg PO BID PRN PRN Reason: Anxiety Atenolol (Tenormin) 50 mg PO DAILY [facility] Last Admin: 12/25/16 10:23 Dose: 50 mg Clopidogrel Bisulfate (Plavix) 75 mg PO DAILY [facility] Last Admin: 12/25/16 10:23 Dose: 75 mg Famotidine (Pepcid) 20 mg PO DAILY [facility] Last Admin: 12/25/16 10:23 Dose: 20 mg Heparin Sodium (Porcine) (Heparin) 5,000 units SC Q12 [facility] Last Admin: 12/25/16 10:30 Dose: 5,000 units Hydralazine HCl (Apresoline) 25 mg PO BID [facility] Last Admin: 12/25/16 18:14 Dose: 25 mg Insulin Aspart (Novolog) 0 unit SC ACHS [facility] PRN Reason: Protocol Last Admin: 12/25/16 18:14 Dose: Not Given Insulin Aspart (Novolog) 14 unit SC AC [facility] Last Admin: 12/25/16 18:14 Dose: 14 unit Insulin Glargine (Lantus) 30 unit SC HS [facility] Montelukast Sodium (Singulair) 10 mg PO HS [facility] Oxybutynin Chloride (Ditropan Tab) 5 mg PO DAILY [facility] Last Admin: 12/25/16 10:22 Dose: 5 mg Rosuvastatin Calcium (Crestor) 5 mg PO HS [facility] Last Admin: 12/24/16 21:58 Dose: 5 mg Fluticasone/Salmeterol (Advair Diskus 250/50) 1 puff INH RQ12 [facility] Last Admin: 12/25/16 20:56 Dose: 1 puff Sevelamer Carbonate (Renvela) 800 mg PO TIDCC [facility] Last Admin: 12/25/16 18:14 Dose: 800 mg - Labs Labs: 12/25/16 07:09 12/25/16 07:09 - Constitutional Appears: No Acute Distress - Head Exam Head Exam: NORMOCEPHALIC - Eye Exam Eye Exam: Normal appearance Pupil Exam: NORMAL ACCOMODATION - ENT Exam ENT Exam: Normal Exam - Neck Exam Neck Exam: Normal Inspection - Respiratory Exam Respiratory Exam: NORMAL BREATHING PATTERN - GI/Abdominal Exam GI & Abdominal Exam: Normal Bowel Sounds - Rectal Exam Rectal Exam: Deferred - Exam External exam: NORMAL EXTERNAL EXAM - Extremities Exam Extremities Exam: Normal Inspection - Back Exam Back Exam: NORMAL INSPECTION - Neurological Exam Neurological Exam: Altered - Psychiatric Exam Psychiatric exam: Depressed - Skin Skin Exam: Dry Assessment and Plan (1) CHF (congestive heart failure) Status: Acute (2) ESRD (end stage renal disease) on dialysis Status: Acute (3) Chronic renal failure Status: Acute (4) Respiratory distress Status: Acute (5) Uncontrolled diabetes mellitus Status: Acute
[2016-12-25] MEDS ORDERED: (Lantus) Insulin Glargine, Recombinant SC SCH ×2 (22:00)
[2016-12-26] MEDS: Albuterol 0.083% Inhal Sol (2.5 mg/3 mL) UD INH SCH ×4 (02:03→20:06)
[2016-12-26] MEDS: (Novolog) Insulin Aspart, Recombinant 100 u/ml 10 ml vial SC SCH ×7 (08:23→21:56)
[2016-12-26] MEDS: Fluticasone-Salmeterol 250-50mcg Diskus INH SCH ×2 (10:24→20:07)
[2016-12-26] MEDS ORDERED: Dextrose 50% SYRINGE Inj (50 ml) IV STA ×2 (11:55→12:00)
[2016-12-26] MEDS ORDERED: (Novolog) Insulin Aspart, Recombinant 100 u/ml 10 ml vial SC ONE (13:18)
--- NOTE | 2016-12-26 14:48 | PN ---
DATE: 12/26/2016 SUBJECTIVE: The patient is seen. The patient is still very drowsy. The patient went for dialysis e arer and had bouts of hypoglycemia. The patient's blood pressure is better controlled now with her meds. The patient has not taken any psych medication, but continues to be very drowsy and when aske d today, she said she feels cold. VITAL SIGNS: Temperature is 97.5, pulse rate is 65, blood pressure is 118/56, respirations are 20, o xygen sat is 95%. The patient has been compliant with dialysis. LABORATORIES: On review, patient's last blood sugar is 276. The patient had a TSH hormone third gen eration done, which was noted to be 0.04, which is low. The patient has been followed by Dr. Asif rosen for her blood sugars since her blood sugar was markedly elevated. Psych faria, the patient is only taking Xanax 0.5 mg p.o. b.i.d. p.r.n. This has not been given. REVIEW OF SYSTEMS: GENERAL: The patient is still very drowsy, responds to questions. She said she feels cold. The kellie vickers also is refusing to eat. Her blood sugar is still elevated. SKIN: Complaining of feeling cold. HEENT: No headache, no dizziness. NECK: Supple. RESPIRATORY: No dyspnea. CARDIOVASCULAR: No chest pain. GASTROINTESTINAL: Appetite is variable. EXTREMITIES: Complaining of weakness. GENITOURINARY: No dysuria. NEUROLOGIC: Alert, less confused. According to the staff, the family does not want patient to go for subacute rehab and wants to take h er home, but patient may need to be monitored more, especially with her fluctuation in blood sugar. MENTAL STATUS EXAMINATION: Elderly female of [place] descent, oriented x 3. Mood is less anxious. Affect is reactive. Speech is spontaneous. Thought process coherent. Thought content: The patient is complaining of feeling cold. She went for dialysis earlier. No paranoia. No suicidal or homici angelo ideation. Attention and memory seem to be limited. Insight and judgment fair. Impulse control is fair. IMPRESSION: History of delirium, metabolic encephalopathy, secondary to uncontrolled diabetes and en d-stage renal disease as well as possible dementia. PLAN AND RECOMMENDATIONS: The patient seen, meds reviewed. Continue present management. Due to kellie vickers's medical status, we will keep patient off any psych meds for now. She is manageable at this ti me, redirectable. Continue dialysis as ordered. The patient is followed by Dr. Gold for uncontrolled diabetes. Psych faria, the patient is manageable at this time. She is not agitated. She is complia nt with her dialysis. Once the patient is more medically stable, we will try to reintroduce her psyc h meds. I do suggest that patient can go for subacute rehab for better monitoring as well as for rec onditioning. Tra Duran MD cc: [phone] TT: 12/26/2016 14:47:50 Confirmation # [id number] Dictation # [id number] en
[2016-12-26 14:50] LABS: ARTERIAL BLOOD HGB O2 SAT 95.5 % (95.0-98.0); CARBOXYHEMOGLOBIN 0.5 % (0.5-1.5); DRAW SITE LB; HHB 3.3 % (0.0-5.0); METHEMOGLOBIN 0.7 % (0.0-3.0)
--- NOTE | 2016-12-26 15:12 | PN ---
DATE: 12/26/2016 Fully detailed consultation was written on the consult sheet yesterday after interviewing and examini ng the patient. The patient is lethargic, was reported to have an episode of hypoglycemia. She was given glucose, but the patient is not yet fully alert; however, she can be awakened. PHYSICAL EXAMINATION: VITAL SIGNS: She is afebrile with blood pressure of 118/56, hemoglobin oxygen saturation is 95%, pul se 66, respirations 20 per minute. HEART: Regular. LUNGS: Diminished breath sounds over lung bases. Rhonchi are decreased. ABDOMEN: Soft. EXTREMITIES: Minimal leg edema. Her chest x-ray shows cardiomegaly with congestive changes. IMPRESSION: Respiratory insufficiency, hypertensive cardiovascular disease, coronary artery, disease , congestive heart failure, bronchitis, chronic obstructive pulmonary disease, end-stage renal diseas e on dialysis regimen. PLAN: To continue with the current measures. We will do ABGs and leg venous Doppler, to continue wi th the cardiac and renal followup and oxygen therapy along with bronchodilators and vasodilators. Francisco Javier Guaman MD cc: [id number] TT: 12/26/2016 15:12:11 Confirmation # [id number] Dictation # [id number] tn
--- NOTE | 2016-12-26 16:16 | PN ---
DATE: 12/26/2016 ROOM 665 This is an 81-year-old female with recent uncontrolled type 2 insulin-requiring diabetes presenting h ere with hyperosmolar hyperglycemic state and dehydration, and has since then improved clinically and metabolically as noted overnight. However, today at mid-morning, she developed a significant histor y of a 50 7 bouts of symptomatic hypoglycemia with glucose levels dropping to 46 mcg/dL. She apparen tly has been variable oral intake at this time, and in fact, she actually refused to eat lunch and he r meal tray was barely touched, as per the nursing staff. Her glucose levels came down to 46, but th e repeat hyperglycemic levels have supervened because of rebound hyperglycemia. Latest glucose level s have ranged from 276-305 mg/dL. Her latest chemistry showed a BUN of 25, sodium 137, potassium 4.3, chloride 93, CO2 of 26, glucose 2 58, and creatinine 3.4. Her hemoglobin A1c is extremely elevated at 10.1%, indicative of very poor o utpatient metabolic control of her diabetic condition. So at this time will modify her basal and bolus insulin regimen, and lower the NovoLog to 8 units sub Q t.i.d. before meals to start at dinnertime today as ordered. Will continue the low-dose correction scale using NovoLog insulin as ordered. Will also lower the basal insulin with Lantus to be given a s 24 units subQ at bedtime daily to start tonight. Will obtain serial chemistries and supplement acc ordingly as needed. Will follow. Bella Gold MD cc: [phone] TT: 12/26/2016 16:16:05 Confirmation # [id number] Dictation # [id number] lindsay
--- NOTE | 2016-12-26 23:18 | CP.PCM.PN ---
Subjective - Date & Time of Evaluation Date of Evaluation: 12/26/16 Time of Evaluation: 13:20 - Subjective Subjective: Patient had a hypogycemic episode today. Insulin reajusted by Dr Gold. Patient evaluated by Dr Diaz. Objective - Vital Signs/Intake and Output Vital Signs (last 24 hours): Temp Pulse Resp BP Pulse Ox 97.6 F 76 20 138/75 97 12/26/16 16:43 12/26/16 16:43 12/26/16 16:43 12/26/16 16:43 12/26/16 16:43 Intake and Output: 12/26/16 12/27/16 18:59 06:59 Intake Total 250 Balance 250 - Medications Medications: Current Medications Albuterol Sulfate (Albuterol 0.083% Inhal Luisa (2.5 Mg/3 Ml) Ud) 2.5 mg INH RQ6 [facility] Last Admin: 12/26/16 20:06 Dose: 2.5 mg Alprazolam (Xanax) 0.5 mg PO BID PRN PRN Reason: Anxiety Atenolol (Tenormin) 50 mg PO DAILY [facility] Last Admin: 12/26/16 11:28 Dose: Not Given Clopidogrel Bisulfate (Plavix) 75 mg PO DAILY [facility] Last Admin: 12/26/16 11:28 Dose: Not Given Famotidine (Pepcid) 20 mg PO DAILY [facility] Last Admin: 12/26/16 11:28 Dose: Not Given Heparin Sodium (Porcine) (Heparin) 5,000 units SC Q12 [facility] Last Admin: 12/26/16 22:03 Dose: 5,000 units Hydralazine HCl (Apresoline) 25 mg PO BID [facility] Last Admin: 12/26/16 18:45 Dose: 25 mg Insulin Aspart (Novolog) 0 unit SC ACHS [facility] PRN Reason: Protocol Last Admin: 12/26/16 21:56 Dose: Not Given Insulin Aspart (Novolog) 8 unit SC AC [facility] Last Admin: 12/26/16 17:30 Dose: 8 unit Insulin Glargine (Lantus) 24 unit SC HS [facility] Montelukast Sodium (Singulair) 10 mg PO HS [facility] Last Admin: 12/26/16 22:01 Dose: 10 mg Rosuvastatin Calcium (Crestor) 5 mg PO HS [facility] Last Admin: 12/26/16 22:01 Dose: 5 mg Fluticasone/Salmeterol (Advair Diskus 250/50) 1 puff INH RQ12 [facility] Last Admin: 12/26/16 20:07 Dose: Not Given Sevelamer Carbonate (Renvela) 800 mg PO TIDCC [facility] Last Admin: 12/26/16 18:45 Dose: 800 mg - Labs Labs: 12/25/16 07:09 12/25/16 07:09 - Constitutional Appears: No Acute Distress - Head Exam Head Exam: NORMAL INSPECTION - Eye Exam Eye Exam: Normal appearance Pupil Exam: NORMAL ACCOMODATION - ENT Exam ENT Exam: Normal Oropharynx - Neck Exam Neck Exam: Normal Inspection - Respiratory Exam Respiratory Exam: NORMAL BREATHING PATTERN - Cardiovascular Exam Cardiovascular Exam: REGULAR RHYTHM - GI/Abdominal Exam GI & Abdominal Exam: Normal Bowel Sounds - Rectal Exam Rectal Exam: Deferred - Exam External exam: NORMAL EXTERNAL EXAM Speculum exam: Cervical Discharge, Erythema, Foreign Body, Laceration, NORMAL SPECULUM EXAM, Tissue, Vaginal Bleeding, Vaginal Discharge Bimanual exam: NORMAL BIMANUAL EXAM - Neurological Exam Neurological Exam: Altered - Skin Skin Exam: Dry Assessment and Plan (1) CHF (congestive heart failure) Status: Acute (2) ESRD (end stage renal disease) on dialysis Status: Acute (3) Chronic renal failure Status: Acute (4) Respiratory distress Status: Acute (5) Uncontrolled diabetes mellitus Status: Acute
[2016-12-26] MEDS: (Lantus) Insulin Glargine, Recombinant SC SCH (23:46)
[2016-12-27] MEDS: Albuterol 0.083% Inhal Sol (2.5 mg/3 mL) UD INH SCH ×3 (01:32→19:29)
--- NOTE | 2016-12-27 08:04 | PN ---
DATE: 12/26/2016 ADDENDUM On review of the patient's meds, the patient is taking oxybutynin which can cause sedation as a side effect, especially can cross react with her medications for hypertension due to the strong anticholin ergic side effects. We will try to discontinue the oxybutynin for now and monitor the patient's ment al status as the patient is very drowsy at this time. The patient not having any urinary problems, b ut we will try to streamline her meds due to increased sedation. Tra Duran MD cc: [phone] TT: 12/26/2016 14:59:47 Confirmation # [id number] Dictation # [id number] tn
[2016-12-27] MEDS: (Novolog) Insulin Aspart, Recombinant 100 u/ml 10 ml vial SC SCH ×7 (08:07→22:20)
[2016-12-27] MEDS: Fluticasone-Salmeterol 250-50mcg Diskus INH SCH ×2 (08:35→19:29)
--- NOTE | 2016-12-27 14:05 | PN ---
DATE: 12/27/2016 SUBJECTIVE: The patient is alert and oriented now. Her family is by her bedside. PHYSICAL EXAMINATION: VITAL SIGNS: The patient is afebrile, blood pressure 142/50, pulse rate 70 per minute, respirations 20 and hemoglobin oxygen saturation of 96%. GENERAL: The patient is not in distress, fully alert and is oriented. No chest pain. Dyspnea has d ecreased. HEART: Regular. LUNGS: Diminished breath sounds over lung bases. Rhonchi decreased. ABDOMEN: Soft. EXTREMITIES: Legs no edema. LABORATORY DATA: Her white count is 6500, hemoglobin 12, platelet count 168,000. Her ABG shows pH o f 7.45, pCO2 of 40, pO2 89 and bicarbonate 28 with A-a gradient 11 and hemoglobin oxygen saturation 9 6%. Chest x-ray is a poor inspiratory film, large heart, lordotic film and possibly basal atelectatic ton nges. IMPRESSION: Respiratory insufficiency, hypertensive cardiovascular disease, coronary artery disease, chronic obstructive pulmonary disease, renal failure, congestive heart failure and arthritis. PLAN: To continue with current management including diabetic control, vasodilators and bronchodilato rs and oxygen therapy. No vasopressors. Francisco Javier Guaman MD cc: [id number] TT: 12/27/2016 14:04:57 Confirmation # [id number] Dictation # [id number] mn
--- NOTE | 2016-12-27 14:38 | VASCLAB ---
PROCEDURE: Lower Extremity Venous Duplex Exam. HISTORY: dvt PRIORS: None. TECHNIQUE: Bilateral common femoral, femoral, popliteal and posterior tibial, peroneal and great saphenous veins were evaluated. Flow was assessed with color Doppler, compressibility, assessment of phasic flow and augmentation response. Report prepared by EDOUARD Ibarra, RVT FINDINGS: RIGHT: 1. Common Femoral Vein: 1.1. Compressibility - Fully compressible: Thrombus - None : Flow - Phasic: Augmentation -Normal: Reflux - None. 2. Femoral Vein: 2.1. Compressibility - Fully compressible: Thrombus - None : Flow - Phasic: Augmentation -Normal: Reflux - None. 3. Popliteal Vein: 3.1. Compressibility - Fully compressible: Thrombus - None : Flow - Phasic: Augmentation -Normal: Reflux - None. 4. Posterior Tibial Vein: 4.1. Compressibility - Fully compressible: Thrombus - None: Flow - Phasic: Augmentation -Normal: Reflux - None. 5. Peroneal Vein: 5.1. Compressibility - Fully compressible: Thrombus - None: Flow - Phasic: Augmentation -Normal: Reflux - None. 6. Great Saphenous Vein: 6.1. Compressibility - Fully compressible: Thrombus - None: Flow - Phasic: Augmentation - Normal: Reflux - None. LEFT: 1. Common Femoral Vein: 1.1. Compressibility - Fully compressible: Thrombus - None: Flow - Phasic: Augmentation -Normal: Reflux - None. 2. Femoral Vein: 2.1. Compressibility - Fully compressible: Thrombus - None: Flow - Phasic: Augmentation -Normal: Reflux - None. 3. Popliteal Vein: 3.1. Compressibility - Fully compressible: Thrombus - None : Flow - Phasic: Augmentation -Normal: Reflux - None. 4. Posterior Tibial Vein: 4.1. Compressibility - Fully compressible: Thrombus - None: Flow - Phasic: Augmentation -Normal: Reflux - None. 5. Peroneal Vein: 5.1. Compressibility - Fully compressible: Thrombus - None: Flow - Phasic: Augmentation -Normal: Reflux - None. 6. Great Saphenous Vein: 6.1. Compressibility - Fully compressible: Thrombus - None: Flow - Phasic: Augmentation - Normal: Reflux - None. OTHER FINDINGS: Right: None significant. Left: None significant. IMPRESSION: Right: No evidence of deep or superficial vein thrombosis of the right lower extremity. Normal valve function noted of the right side. Left: No evidence of deep or superficial vein thrombosis of the left lower extremity. Normal valve function noted of the left side.
--- NOTE | 2016-12-27 16:11 | CP.PCM.PN ---
Subjective - Date & Time of Evaluation Date of Evaluation: 12/27/16 Time of Evaluation: 15:00 - Subjective Subjective: SEEN ON RENAL F/U SEEN ON HD APPEARS CALMER AND IMPROVED CASE D/W DR LEBLANC Objective - Vital Signs/Intake and Output Vital Signs (last 24 hours): Temp Pulse Resp BP Pulse Ox 98.0 F 71 20 143/51 L 96 12/27/16 08:20 12/27/16 08:20 12/27/16 08:20 12/27/16 08:20 12/27/16 08:20 Intake and Output: 12/27/16 12/27/16 06:59 18:59 Intake Total 250 Balance 250 - Medications Medications: Current Medications Albuterol Sulfate (Albuterol 0.083% Inhal Luisa (2.5 Mg/3 Ml) Ud) 2.5 mg INH RQ6 [facility] Last Admin: 12/27/16 08:35 Dose: 2.5 mg Alprazolam (Xanax) 0.5 mg PO BID PRN PRN Reason: Anxiety Atenolol (Tenormin) 50 mg PO DAILY [facility] Last Admin: 12/27/16 10:14 Dose: 50 mg Clopidogrel Bisulfate (Plavix) 75 mg PO DAILY [facility] Last Admin: 12/27/16 10:14 Dose: 75 mg Famotidine (Pepcid) 20 mg PO DAILY [facility] Last Admin: 12/27/16 10:14 Dose: 20 mg Heparin Sodium (Porcine) (Heparin) 5,000 units SC Q12 [facility] Last Admin: 12/27/16 10:14 Dose: 5,000 units Hydralazine HCl (Apresoline) 25 mg PO BID [facility] Last Admin: 12/27/16 10:14 Dose: 25 mg Insulin Aspart (Novolog) 0 unit SC ACHS [facility] PRN Reason: Protocol Last Admin: 12/27/16 12:23 Dose: Not Given Insulin Aspart (Novolog) 10 unit SC AC [facility] Insulin Glargine (Lantus) 24 unit SC HS [facility] Last Admin: 12/26/16 23:46 Dose: Not Given Montelukast Sodium (Singulair) 10 mg PO HS [facility] Last Admin: 12/26/16 22:01 Dose: 10 mg Rosuvastatin Calcium (Crestor) 5 mg PO HS [facility] Last Admin: 12/26/16 22:01 Dose: 5 mg Fluticasone/Salmeterol (Advair Diskus 250/50) 1 puff INH RQ12 [facility] Last Admin: 12/27/16 08:35 Dose: 1 puff Sevelamer Carbonate (Renvela) 800 mg PO TIDCC [facility] Last Admin: 12/27/16 12:30 Dose: 800 mg - Labs Labs: 12/25/16 07:09 12/25/16 07:09 Assessment and Plan - Assessment and Plan (Free Text) Assessment: ESRD ON HD TTS ANEMIA OF CKD .. ON EPO C/O CURRENT CARE
--- NOTE | 2016-12-27 16:21 | PN ---
DATE: 12/27/2016 ROOM: 665 This is an 81-year-old female with recent uncontrolled type 2 insulin-requiring diabetes, now being f ollowed closely for metabolic management. Her glycemic levels are extremely fluctuating because of the variability of her oral intake, and toda y's glucose levels have ranged from 174-196 and 296 mg/dL. Her latest chemistry showed a BUN of 25, sodium 137, potassium 4.3, chloride 93, CO2 of 26, glucose 258 and creatinine 3.4. Her hemoglobin A1 c is extremely elevated at 10.1%, indicative of suboptimal metabolic control of her diabetic conditio n. So at this time, will increase her NovoLog to 10 units subQ t.i.d. before meals to start at dinnertim e today as ordered. Will titrate incrementally as indicated to optimize metabolic control. Will als o continue her basal insulin given as Lantus at a dose of 24 units subQ at bedtime daily to start ton ight. Will continue the low dose correction scale with NovoLog insulin as given. Will also repeat t he chemistries and supplement accordingly as needed. Will follow. Bella Gold MD cc: [phone] TT: 12/27/2016 16:21:07 Confirmation # [id number] Dictation # [id number] karina
--- NOTE | 2016-12-27 19:21 | PN ---
DATE: 12/27/2016 SUBJECTIVE: The patient is seen. The patient is more alert, verbal today, conversing well. The patient has been taken off oxybutynin and only taking Xanax p.r.n. which the patient has not been taking. The patient has been taken off multiple psychotropic medications. Her blood sugar is still in the above 200 range but her blood pressure seems to be much better controlled. The patient expressing desire to go home tomorrow. She does not want go for subacute rehab. Blood pressure is much better. VITAL SIGNS: Temperature is 98.2, pulse rate 66, blood pressure is 132/63, respirations 20, oxygen saturation is 97%. REVIEW OF SYSTEMS: GENERAL: The patient is more alert, verbal, conversing in Mongolian, seen in her room. She states she wants to go home tomorrow. The patient's mental status much better. She is not agitated. She is cooperative. SKIN: No diaphoresis. HEENT: No headache, no dizziness. NECK: Supple. RESPIRATORY: No dyspnea. CARDIOVASCULAR: No chest pain. GASTROINTESTINAL: She is eating better. EXTREMITIES: Gait is steady. MUSCULOSKELETAL: Feels weak. NEUROLOGIC: Alert with periods of forgetfulness. GENITOURINARY: No behavioral problems noted. MENTAL STATUS EXAMINATION: An elderly female, looks stated age, oriented x 3. Mood is brighter. Affect is reactive. Speech spontaneous. Thought process: Coherent. Thought content: No overt psychosis. No suicidal or homicidal ideation. The patient states she wants to go home. Attention and memory still limited. Insight and judgment limited. Impulse control is fair at this time. IMPRESSION: Senile dementia vascular type with mood changes with superimposed metabolic encephalopathy secondary to diabetes and end-stage renal disease. PLAN AND RECOMMENDATIONS: The patient seen, meds reviewed. The patient is off standing psych meds, but taking Xanax p.r.n. I did take the patient off a lot of her medications that she was taking in the past. The patient was taken off oxybutynin, which is very anticholinergic as well as patient was taken off Seroquel as well as basic VESIcare which she was taking at home, Risperdal, Seroquel, and Remeron as well as Aricept. I suggest the patient to be kept off these medicines and just be kept on Xanax p.r.n. Seroquel and Risperdal can cause her blood sugar to go up and also the patient is taking Aricept, which is for her memory, but patient is taking medications for her bladder which are very anticholinergic and cause memory problems. She is taking oxybutynin as well as VESIcare which was taken in the hospital. I do suggest the patient will be discharged for home. Just keep the patient only on Xanax p.r.n. for now and also keep the patient off Remeron. Remeron can be used to improve appetite but the patient is a diabetic and poorly controlled diabetes and Remeron can stimulate appetite which can cause increase the patient's p.o. intake and cause her blood sugar to go uncontrolled. For now, the patient is manageable despite her confusion. The patient will just be kept on Xanax 0.5 mg p.o. b.i.d. p.r.n. If her behavior were changed, we can slowly reintroduce some of her medications slowly. Continue dialysis as ordered. Right now, patient is refusing to go for subacute rehab. Family does not want her to go there. She can go home with Xanax p.r.n. and to continue dialysis as ordered. Mental status is much improved with improvement of her blood pressure as well as improvement and better control of her sugar and streamline of her medications. Tra Duran MD cc: [phone] TT: 12/27/2016 19:20:24 Confirmation # [id number] Dictation # [id number] jn MTDD
[2016-12-27] MEDS: (Lantus) Insulin Glargine, Recombinant SC SCH (22:19)
--- NOTE | 2016-12-27 22:57 | CP.PCM.PN ---
Subjective - Date & Time of Evaluation Date of Evaluation: 12/27/16 Time of Evaluation: 13:15 - Subjective Subjective: Patient somewhat lethergic today. Patient had a hypoglycemic episode. Continue supportive measures. Patient scheduled for dialysis in AM. Objective - Vital Signs/Intake and Output Vital Signs (last 24 hours): Temp Pulse Resp BP Pulse Ox 98.2 F 79 20 124/74 97 12/27/16 16:00 12/27/16 18:11 12/27/16 16:00 12/27/16 18:11 12/27/16 16:00 - Medications Medications: Current Medications Albuterol Sulfate (Albuterol 0.083% Inhal Luisa (2.5 Mg/3 Ml) Ud) 2.5 mg INH RQ6 [facility] Last Admin: 12/27/16 19:29 Dose: 2.5 mg Alprazolam (Xanax) 0.5 mg PO BID PRN PRN Reason: Anxiety Atenolol (Tenormin) 50 mg PO DAILY [facility] Last Admin: 12/27/16 10:14 Dose: 50 mg Clopidogrel Bisulfate (Plavix) 75 mg PO DAILY [facility] Last Admin: 12/27/16 10:14 Dose: 75 mg Famotidine (Pepcid) 20 mg PO DAILY [facility] Last Admin: 12/27/16 10:14 Dose: 20 mg Heparin Sodium (Porcine) (Heparin) 5,000 units SC Q12 [facility] Last Admin: 12/27/16 22:19 Dose: 5,000 units Hydralazine HCl (Apresoline) 25 mg PO BID [facility] Last Admin: 12/27/16 18:03 Dose: 25 mg Insulin Aspart (Novolog) 0 unit SC ACHS [facility] PRN Reason: Protocol Last Admin: 12/27/16 22:20 Dose: Not Given Insulin Aspart (Novolog) 10 unit SC AC [facility] Last Admin: 12/27/16 18:02 Dose: 10 unit Insulin Glargine (Lantus) 24 unit SC HS [facility] Last Admin: 12/27/16 22:19 Dose: 24 units Montelukast Sodium (Singulair) 10 mg PO HS [facility] Last Admin: 12/27/16 22:19 Dose: 10 mg Rosuvastatin Calcium (Crestor) 5 mg PO HS [facility] Last Admin: 12/27/16 22:19 Dose: 5 mg Fluticasone/Salmeterol (Advair Diskus 250/50) 1 puff INH RQ12 [facility] Last Admin: 12/27/16 19:29 Dose: 1 puff Sevelamer Carbonate (Renvela) 800 mg PO TIDCC [facility] Last Admin: 12/27/16 18:01 Dose: 800 mg - Labs Labs: 12/25/16 07:09 12/25/16 07:09 - Constitutional Appears: No Acute Distress - Head Exam Head Exam: NORMAL INSPECTION - Eye Exam Eye Exam: Normal appearance Pupil Exam: NORMAL ACCOMODATION - ENT Exam ENT Exam: Normal Oropharynx - Neck Exam Neck Exam: Normal Inspection - Respiratory Exam Respiratory Exam: Decreased Breath Sounds - Cardiovascular Exam Cardiovascular Exam: REGULAR RHYTHM - GI/Abdominal Exam GI & Abdominal Exam: Normal Bowel Sounds - Rectal Exam Rectal Exam: Deferred - Exam External exam: NORMAL EXTERNAL EXAM - Extremities Exam Extremities Exam: Normal Inspection - Back Exam Back Exam: NORMAL INSPECTION - Neurological Exam Neurological Exam: Altered - Psychiatric Exam Psychiatric exam: Depressed - Skin Skin Exam: Dry Assessment and Plan (1) CHF (congestive heart failure) Status: Acute (2) ESRD (end stage renal disease) on dialysis Status: Acute (3) Chronic renal failure Status: Acute (4) Respiratory distress Status: Acute (5) Uncontrolled diabetes mellitus Status: Acute
[2016-12-28] MEDS: Albuterol 0.083% Inhal Sol (2.5 mg/3 mL) UD INH SCH ×4 (01:20→19:51)
[2016-12-28] MEDS: Fluticasone-Salmeterol 250-50mcg Diskus INH SCH ×2 (08:16→19:51)
[2016-12-28] MEDS: (Novolog) Insulin Aspart, Recombinant 100 u/ml 10 ml vial SC SCH ×9 (08:29→21:26)
[2016-12-28 09:25] LABS: POTASSIUM 4.1 mmol/L (3.6-5.2)
--- NOTE | 2016-12-28 13:45 | PN ---
DATE: 12/28/2016 SUBJECTIVE: The patient is seen. The patient seems to be back to baseline. She is pleasant, surya ative, conversing in Hebrew. She was seen in the dialysis room receiving treatment with no problems . The patient states she wants to go home. The patient is doing much better. She is off any psych medication and has not taken any Xanax p.r.n. I do advise patient to be off her previous psych meds as patient is doing well and also especially the antipsychotic can make her blood sugar go up. Her l ast random blood sugar is in the low 200s, which is 216. VITAL SIGNS: Temperature is 97.3, pulse rate 71, blood pressure is a little low today 98/54. The jessica banuelos is on dialysis. Respiration is 18, oxygen sat is 100%. The patient is not complaining of dizziness when seen. REVIEW OF SYSTEMS: GENERAL: The patient is alert, oriented x 3, seen in the dialysis room, resting, cooperative with tr eatment. SKIN: No diaphoresis. HEENT: No headache, no dizziness. NECK: Supple. RESPIRATORY: No dyspnea. CARDIOVASCULAR: No chest pain. GASTROINTESTINAL: No nausea, no vomiting. EXTREMITIES: No tremors. MUSCULOSKELETAL: Feels weak. NEUROLOGIC: Alert with periods of forgetfulness. The patient, however, is still expressing desire t o go home. She said she does not want to go for subacute rehab and that she said her family and her will help her with her medication and care at home. MENTAL STATUS EXAMINATION: Elderly female, looks stated age, seen in dialysis room, calm, cooperativ e, oriented x 3. Speech spontaneous. Thought process forgetful at times. Thought content: The kellie vickers wants to go home. No psychosis. No suicidal or homicidal ideation. Attention and memory seem to be still limited, but impulse control is fair. Insight and judgment limited. IMPRESSION: History of delirium as well as metabolic encephalopathy, much improved as well as histor y of dementia, vascular type, history of diabetes, end-stage renal disease. PLAN AND RECOMMENDATIONS: The patient seen, meds reviewed. Psych faria, the patient is stable to be discharged to home for now. The patient advised to be off the previous medicine that she was taking. She can continue taking Xanax 0.5 mg b.i.d. p.r.n., which she has not really been asking. The nathaly ent is stable to go home to her family and to follow up with her PMD. Continue dialysis as ordered. Tra Duran MD cc: [phone] TT: 12/28/2016 13:44:30 Confirmation # [id number] Dictation # [id number] en
--- NOTE | 2016-12-28 14:05 | PN ---
DATE: 12/28/2016 The patient is alert, oriented, having dialysis. PHYSICAL EXAMINATION: VITAL SIGNS: She is afebrile, blood pressure 98/54, pulse 71, respiration rate 18 per minute and hem oglobin oxygen saturation is 100%. GENERAL: She is not in distress. Her dyspnea has subsided. She does not complain of chest pain. HEART: Regular. LUNGS: Diminished breath sounds over lung bases with rhonchi diminished. ABDOMEN: Soft. EXTREMITIES: Legs no edema. Her serum sodium is 136, potassium 4.1, chloride 94, CO2 26, BUN is 58 and creatinine is 7.3. Blood glucose is 190. IMPRESSION: Respiratory insufficiency, chronic obstructive pulmonary disease, hypertensive cardiovas cular disease, coronary artery disease and renal failure. PLAN: To continue with therapy along with bronchodilators and vasodilators and dialysis therapy as s cheduled by renal. Francisco Javier Guaman MD cc: [id number] TT: 12/28/2016 14:05:04 Confirmation # [id number] Dictation # [id number] en
--- NOTE | 2016-12-28 14:41 | RAD ---
PROCEDURE: CHEST RADIOGRAPH, 1 VIEW HISTORY: chf COMPARISON: 12/25/2016. FINDINGS: LUNGS: Clear. PLEURA: No pneumothorax or pleural fluid seen. CARDIOVASCULAR: Cardiomegaly. No evidence of acute, significant cardiovascular disease. Stable position of subclavian, SVC stent. OSSEOUS STRUCTURES: No significant abnormalities. VISUALIZED UPPER ABDOMEN: Normal. OTHER FINDINGS: Persistent elevation of the right hemidiaphragm unchanged. IMPRESSION: No active disease. No acute/significant interval changes.
[2016-12-28 17:57] VITALS: RESP 20
--- NOTE | 2016-12-28 19:04 | CP.PCM.PN ---
Subjective - Date & Time of Evaluation Date of Evaluation: 12/28/16 Time of Evaluation: 15:00 - Subjective Subjective: SEEN ON RENAL F/U AROUND 3 PM RECIEVED HER HD TODAY .. TOLERATED WELL APPEARS MORE ALERT AND RESPONSIVE TODAY + PERIODS OF CONFUSION Objective - Vital Signs/Intake and Output Vital Signs (last 24 hours): Temp Pulse Resp BP Pulse Ox 97 F L 85 20 116/59 L 99 12/28/16 16:00 12/28/16 18:34 12/28/16 16:00 12/28/16 18:34 12/28/16 16:00 - Medications Medications: Current Medications Albuterol Sulfate (Albuterol 0.083% Inhal Luisa (2.5 Mg/3 Ml) Ud) 2.5 mg INH RQ6 [facility] Last Admin: 12/28/16 14:35 Dose: 2.5 mg Alprazolam (Xanax) 0.5 mg PO BID PRN PRN Reason: Anxiety Atenolol (Tenormin) 50 mg PO DAILY [facility] Last Admin: 12/28/16 13:06 Dose: Not Given Clopidogrel Bisulfate (Plavix) 75 mg PO DAILY [facility] Last Admin: 12/28/16 13:05 Dose: Not Given Famotidine (Pepcid) 20 mg PO DAILY [facility] Last Admin: 12/28/16 13:05 Dose: Not Given Hydralazine HCl (Apresoline) 25 mg PO BID [facility] Last Admin: 12/28/16 18:30 Dose: 25 mg Insulin Aspart (Novolog) 0 unit SC ACHS [facility] PRN Reason: Protocol Last Admin: 12/28/16 18:30 Dose: Not Given Insulin Aspart (Novolog) 10 unit SC AC [facility] Last Admin: 12/28/16 18:29 Dose: 10 unit Insulin Glargine (Lantus) 26 unit SC HS [facility] Montelukast Sodium (Singulair) 10 mg PO HS [facility] Last Admin: 12/27/16 22:19 Dose: 10 mg Rosuvastatin Calcium (Crestor) 5 mg PO HS [facility] Last Admin: 12/27/16 22:19 Dose: 5 mg Fluticasone/Salmeterol (Advair Diskus 250/50) 1 puff INH RQ12 [facility] Last Admin: 12/28/16 08:16 Dose: 1 puff Sevelamer Carbonate (Renvela) 800 mg PO TIDCC [facility] Last Admin: 12/28/16 18:30 Dose: 800 mg - Labs Labs: 12/25/16 07:09 12/28/16 09:04 Assessment and Plan - Assessment and Plan (Free Text) Assessment: ESRD ON HD M W F ANEMIA OF CKD .. H/H STABLE CONFUSION .. MULTIPLE CO MORBIDITIES C/O CURRENT CARE CASE D/W METERMAN ON THE FLOOR
--- NOTE | 2016-12-28 20:25 | PN ---
DATE: 12/28/2016 ROOM: 665 This is an 81-year-old female with recent uncontrolled type 2 insulin-requiring diabetes, now being f ollowed closely for metabolic management. Her glycemic levels are fluctuating but improved at this time, and the latest glucose levels have ran ged from 173-190 and 209 mg/dL. Her latest chemistry showed a BUN of 58, sodium 136, potassium 4.1, chloride 94, CO2 26, glucose 216 and creatinine 7.3. So at this time, will increase the basal insulin with Lantus to be given as 26 units subQ at bedtime daily to start tonight. Will continue her NovoLog given as 10 units subQ t.i.d. before meals to star t at dinnertime today as ordered. Will continue the low-dose correction scale using NovoLog insulin as given. Will obtain serial chemistries and supplement accordingly as needed. Will follow. Bella Gold MD cc: [id number] TT: 12/28/2016 20:25:12 Confirmation # [id number] Dictation # [id number] mn
[2016-12-28] MEDS ORDERED: (Lantus) Insulin Glargine, Recombinant SC SCH (22:00)
--- NOTE | 2016-12-28 22:19 | CP.PCM.PN ---
Subjective - Date & Time of Evaluation Date of Evaluation: 12/28/16 Time of Evaluation: 13:30 - Subjective Subjective: Patient very confused following dialysis. Labs done today reveal a Bun of 56, and a glucose of 216. Patient evaluated today by Dr Diaz. Objective - Vital Signs/Intake and Output Vital Signs (last 24 hours): Temp Pulse Resp BP Pulse Ox 97 F L 85 20 116/59 L 99 12/28/16 16:00 12/28/16 18:34 12/28/16 16:00 12/28/16 18:34 12/28/16 16:00 Intake and Output: 12/28/16 12/29/16 18:59 06:59 Intake Total 240 Balance 240 - Medications Medications: Current Medications Albuterol Sulfate (Albuterol 0.083% Inhal Luisa (2.5 Mg/3 Ml) Ud) 2.5 mg INH RQ6 [facility] Last Admin: 12/28/16 19:51 Dose: Not Given Alprazolam (Xanax) 0.5 mg PO BID PRN PRN Reason: Anxiety Atenolol (Tenormin) 50 mg PO DAILY [facility] Last Admin: 12/28/16 13:06 Dose: Not Given Clopidogrel Bisulfate (Plavix) 75 mg PO DAILY [facility] Last Admin: 12/28/16 13:05 Dose: Not Given Famotidine (Pepcid) 20 mg PO DAILY [facility] Last Admin: 12/28/16 13:05 Dose: Not Given Hydralazine HCl (Apresoline) 25 mg PO BID [facility] Last Admin: 12/28/16 18:30 Dose: 25 mg Insulin Aspart (Novolog) 0 unit SC ACHS [facility] PRN Reason: Protocol Last Admin: 12/28/16 21:26 Dose: Not Given Insulin Aspart (Novolog) 10 unit SC AC [facility] Last Admin: 12/28/16 18:29 Dose: 10 unit Insulin Glargine (Lantus) 26 unit SC HS [facility] Last Admin: 12/28/16 21:26 Dose: 26 units Montelukast Sodium (Singulair) 10 mg PO HS [facility] Last Admin: 12/28/16 21:25 Dose: 10 mg Rosuvastatin Calcium (Crestor) 5 mg PO HS [facility] Last Admin: 12/28/16 21:25 Dose: 5 mg Fluticasone/Salmeterol (Advair Diskus 250/50) 1 puff INH RQ12 [facility] Last Admin: 12/28/16 19:51 Dose: Not Given Sevelamer Carbonate (Renvela) 800 mg PO TIDCC [facility] Last Admin: 12/28/16 18:30 Dose: 800 mg - Labs Labs: 12/25/16 07:09 12/28/16 09:04 - Constitutional Appears: No Acute Distress - Head Exam Head Exam: NORMAL INSPECTION - Eye Exam Eye Exam: Normal appearance Pupil Exam: NORMAL ACCOMODATION - ENT Exam ENT Exam: Normal Oropharynx - Neck Exam Neck Exam: Normal Inspection - Respiratory Exam Respiratory Exam: Decreased Breath Sounds - Cardiovascular Exam Cardiovascular Exam: REGULAR RHYTHM - GI/Abdominal Exam GI & Abdominal Exam: Normal Bowel Sounds - Rectal Exam Rectal Exam: Deferred - Exam External exam: NORMAL EXTERNAL EXAM - Extremities Exam Extremities Exam: Joint Swelling - Back Exam Back Exam: NORMAL INSPECTION - Neurological Exam Neurological Exam: Oriented x3 - Psychiatric Exam Psychiatric exam: Depressed - Skin Skin Exam: Dry Assessment and Plan (1) CHF (congestive heart failure) Status: Acute (2) ESRD (end stage renal disease) on dialysis Status: Acute (3) Chronic renal failure Status: Acute (4) Respiratory distress Status: Acute (5) Uncontrolled diabetes mellitus Status: Acute
[2016-12-28 23:22] VITALS: BP 142/70; PULSE 74; TEMP 98.2; O2SAT 97
[2016-12-29] MEDS: Albuterol 0.083% Inhal Sol (2.5 mg/3 mL) UD INH SCH ×3 (01:38→13:48)
[2016-12-29] MEDS: (Novolog) Insulin Aspart, Recombinant 100 u/ml 10 ml vial SC SCH ×4 (07:53→12:23)
[2016-12-29] MEDS: Fluticasone-Salmeterol 250-50mcg Diskus INH SCH (08:55)
--- NOTE | 2016-12-29 11:14 | PN ---
DATE: 12/29/2016 ROOM: 653 SUBJECTIVE: This is an 81-year-old female with recent uncontrolled type 2 insulin-requiring diabetes presenting here with congestive heart failure and fluid overload on the background of end-stage stevie l disease and is now being followed closely also for metabolic management because of recent hyperglyc emic accelerations as noted thereof. Her latest chemistry showed a BUN of 58, sodium 136, potassium 4.1, chloride 94, CO2 26, glucose 216 and creatinine 7.3. Her glucose levels have ranged from 178-20 9 mg/dL today as noted. So at this time, we will modify her basal and bolus insulin regimen and incr ease the Lantus to 26 units subQ at bedtime daily to start tonight. We will also increase the NovoLo g to 10 units subQ t.i.d. before meals to start today as ordered. We will continue the low-dose parker ection scale using NovoLog insulin as given. We will follow and advise accordingly. Bella Gold MD cc: [id number] TT: 12/29/2016 11:13:53 Confirmation # [id number] Dictation # [id number]
--- NOTE | 2016-12-29 14:49 | CP.PCM.PN ---
Subjective - Date & Time of Evaluation Date of Evaluation: 12/29/16 Time of Evaluation: 14:39 - Subjective Subjective: 81 Y/O FEMALE SEEN AND EXAMINED TODAY, PT IS AWAKE, ALERT, DENIES ANY PAIN, SOB , RESP EASY AND UNLABORED. NAD, PT D/C HOME TODAY PER DR ARANDA, PT SEEN BY DR ESCOBAR TODAY, CLEARED TO D/C BY HIM WELL, MED REC DONE PER DR ARANDA, PT AND DAUGHTER EDUCATED TO F/U W/ DR ARANDA, DR ESCOBAR, DR BOSE IN THE OFFICE, XANAX HELD PER DR ARANDA, LANTUS CHANGED TO 26 UNITS SQ BEDTIME, NOVOLOG 10 UNITS SQ TID BEFORE MEAL, CALL DR ARANDA OFFICE IF ANY FURTHER QUESTIONS, RETURN TO ED IF ANY WORSENING S/S, AGREE, VERBALIZE UNDERSTANDING. Objective - Vital Signs/Intake and Output Vital Signs (last 24 hours): Temp Pulse Resp BP Pulse Ox 98.2 F 74 20 142/70 97 12/28/16 23:20 12/28/16 23:20 12/28/16 23:20 12/28/16 23:20 12/28/16 23:20 Intake and Output: 12/29/16 12/29/16 06:59 18:59 Intake Total 240 Balance 240 - Medications Medications: Current Medications Albuterol Sulfate (Albuterol 0.083% Inhal Luisa (2.5 Mg/3 Ml) Ud) 2.5 mg INH RQ6 [facility] Last Admin: 12/29/16 13:48 Dose: Not Given Alprazolam (Xanax) 0.5 mg PO BID PRN PRN Reason: Anxiety Last Admin: 12/29/16 09:34 Dose: 0.5 mg Atenolol (Tenormin) 50 mg PO DAILY [facility] Last Admin: 12/29/16 09:34 Dose: 50 mg Clopidogrel Bisulfate (Plavix) 75 mg PO DAILY [facility] Last Admin: 12/29/16 09:34 Dose: 75 mg Famotidine (Pepcid) 20 mg PO DAILY [facility] Last Admin: 12/29/16 09:34 Dose: 20 mg Hydralazine HCl (Apresoline) 25 mg PO BID [facility] Last Admin: 12/29/16 09:34 Dose: 25 mg Insulin Aspart (Novolog) 0 unit SC ACHS [facility] PRN Reason: Protocol Last Admin: 12/29/16 12:21 Dose: 3 unit Insulin Aspart (Novolog) 10 unit SC AC [facility] Last Admin: 12/29/16 12:23 Dose: 10 unit Insulin Glargine (Lantus) 26 unit SC HS [facility] Last Admin: 12/28/16 21:26 Dose: 26 units Montelukast Sodium (Singulair) 10 mg PO HS [facility] Last Admin: 12/28/16 21:25 Dose: 10 mg Rosuvastatin Calcium (Crestor) 5 mg PO HS [facility] Last Admin: 12/28/16 21:25 Dose: 5 mg Fluticasone/Salmeterol (Advair Diskus 250/50) 1 puff INH RQ12 [facility] Last Admin: 12/29/16 08:55 Dose: 1 puff Sevelamer Carbonate (Renvela) 800 mg PO TIDCC [facility] Last Admin: 12/29/16 12:25 Dose: 800 mg - Labs Labs: 12/25/16 07:09 12/28/16 09:04
--- NOTE | 2016-12-29 21:56 | CP.PCM.DIS ---
Provider - Provider Date of Admission: 12/24/16 12:36 Attending physician: Valdez Aranda MD Time Spent in preparation of Discharge (in minutes): 26 Diagnosis - Discharge Diagnosis (1) CHF (congestive heart failure) Status: Acute Priority: High (2) ESRD (end stage renal disease) on dialysis Status: Acute Priority: Medium (3) Chronic renal failure Status: Acute (4) Respiratory distress Status: Acute Priority: Medium (5) Uncontrolled diabetes mellitus Status: Acute Priority: Medium Hospital Course - Lab Results Lab Results: Most Recent Lab Values WBC 6.5 K/uL (4.8-10.8) 12/25/16 07:09 RBC 4.42 Mil/uL (3.80-5.20) 12/25/16 07:09 Hgb 12.0 g/dL (11.0-16.0) 12/25/16 07:09 Hct 37.1 % (34.0-47.0) 12/25/16 07:09 MCV 84.0 fL (81.0-99.0) 12/25/16 07:09 MCH 27.1 pg (27.0-31.0) 12/25/16 07:09 MCHC 32.3 g/dL (33.0-37.0) L 12/25/16 07:09 RDW 15.3 % (11.5-14.5) H 12/25/16 07:09 Plt Count 168 K/uL (130-400) 12/25/16 07:09 MPV 9.3 fL (7.2-11.7) 12/25/16 07:09 Neut % (Auto) 65.6 % (50.0-75.0) 12/25/16 07:09 Lymph % (Auto) 20.6 % (20.0-40.0) 12/25/16 07:09 [place] % (Auto) 11.5 % (0.0-10.0) H 12/25/16 07:09 Eos % (Auto) 1.7 % (0.0-4.0) 12/25/16 07:09 Baso % (Auto) 0.6 % (0.0-2.0) 12/25/16 07:09 Neut # 4.3 K/uL (1.8-7.0) 12/25/16 07:09 Lymph # 1.3 K/uL (1.0-4.3) 12/25/16 07:09 [place] # 0.8 K/uL (0.0-0.8) 12/25/16 07:09 Eos # 0.1 K/uL (0.0-0.7) 12/25/16 07:09 Baso # 0.0 K/uL (0.0-0.2) 12/25/16 07:09 Puncture Site Lb 12/26/16 14:46 pCO2 40 mm/Hg (35-45) 12/26/16 14:46 pO2 89 mm/Hg (80-100) 12/26/16 14:46 HCO3 27.6 mmol/L (21-28) 12/26/16 14:46 ABG pH 7.45 (7.35-7.45) 12/26/16 14:46 ABG Total CO2 29.0 mmol/L (22-28) H 12/26/16 14:46 ABG O2 Saturation 96.7 % (95-98) 12/26/16 14:46 ABG Base Excess 3.5 mmol/L (-2.0-3.0) H 12/26/16 14:46 ABG Hemoglobin 11.8 g/dL (11.7-17.4) 12/26/16 14:46 ABG Carboxyhemoglobin 0.5 % (0.5-1.5) 12/26/16 14:46 POC ABG HHb (Measured) 3.3 % (0.0-5.0) 12/26/16 14:46 ABG Methemoglobin 0.7 % (0.0-3.0) 12/26/16 14:46 Mohinder Test Na 12/26/16 14:46 VBG pH 7.37 (7.32-7.43) 12/24/16 10:36 VBG pCO2 40 mmHg (40-60) 12/24/16 10:36 VBG HCO3 22.7 mmol/L 12/24/16 10:36 VBG Total CO2 24.3 mmol/L (22-28) 12/24/16 10:36 VBG O2 Sat (Calc) 79.9 % (40-65) H 12/24/16 10:36 VBG Base Excess -2.0 mmol/L (0.0-2.0) L 12/24/16 10:36 VBG Potassium 5.1 mmol/L (3.6-5.2) 12/24/16 10:36 A-a O2 Difference 11.0 mm/Hg 12/26/16 14:46 Respiratory Index 0.1 12/26/16 14:46 Hgb O2 Saturation 95.5 % (95.0-98.0) 12/26/16 14:46 Sodium 133.0 mmol/l (132-148) 12/24/16 10:36 Chloride 106.0 mmol/L (98-107) 12/24/16 10:36 Glucose 420 mg/dl (65-105) H* 12/24/16 10:36 Lactate 1.4 mmol/L (0.7-2.1) 12/24/16 10:36 FiO2 21.0 % 12/26/16 14:46 Crit Value Called To Dr ashly bae 12/24/16 10:36 Crit Value Called By Chey valadez warp starter 12/24/16 10:36 Crit Value Read Back Y 12/24/16 10:36 Blood Gas Notified Time 1042 12/24/16 10:36 Sodium 136 mmol/L (132-148) 12/28/16 09:04 Potassium 4.1 mmol/L (3.6-5.2) 12/28/16 09:04 Chloride 94 mmol/L (98-107) L 12/28/16 09:04 Carbon Dioxide 26 mmol/L (22-30) 12/28/16 09:04 Anion Gap 20 (10-20) 12/28/16 09:04 BUN 58 mg/dL (7-17) H 12/28/16 09:04 Creatinine 7.3 MG/DL (0.7-1.2) H D 12/28/16 09:04 Est GFR ( Amer) 6 12/28/16 09:04 Est GFR (Non-Af Amer) 5 12/28/16 09:04 POC Glucose (mg/dL) 357 mg/dL (65-110) H 12/29/16 11:34 Random Glucose 216 mg/dL (65-105) H 12/28/16 09:04 Hemoglobin A1c 10.1 % (4.2-6.5) H D 12/25/16 07:09 Calcium 9.0 mg/dl (8.6-10.4) 12/28/16 09:04 Total Bilirubin 1.0 mg/dL (0.2-1.3) 12/25/16 07:09 AST 38 U/L (14-36) H D 12/25/16 07:09 ALT 25 U/L (9-52) 12/25/16 07:09 Alkaline Phosphatase 97 U/L (38-126) 12/25/16 07:09 Total Protein 6.8 g/dL (6.3-8.3) 12/25/16 07:09 Albumin 3.9 g/dL (3.5-5.0) 12/25/16 07:09 Globulin 2.9 gm/dL (2.2-3.9) 12/25/16 07:09 Albumin/Globulin Ratio 1.3 (1.0-2.1) 12/25/16 07:09 Triglycerides 193 mg/dL (0-149) H D 12/25/16 07:09 Cholesterol 137 mg/dL (0-199) 12/25/16 07:09 LDL Cholesterol Direct 40 mg/dL (0-129) 12/25/16 07:09 HDL Cholesterol 55 mg/dL (30-70) 12/25/16 07:09 TSH 3rd Generation 0.04 mIU/L (0.46-4.68) L 12/25/16 07:09 Venous Blood Potassium 5.1 mmol/L (3.6-5.2) 12/24/16 10:36 Serum Ketones Negative (NEGATIVE) 12/24/16 10:37 Discharge Exam - Head Exam Head Exam: NORMAL INSPECTION - Eye Exam Eye Exam: Normal appearance Pupil Exam: NORMAL ACCOMODATION - ENT Exam ENT Exam: Normal Exam - Neck Exam Neck exam: Normal Inspection - Respiratory Exam Respiratory Exam: Decreased Breath Sounds - Cardiovascular Exam Cardiovascular Exam: REGULAR RHYTHM - GI/Abdominal Exam GI & Abdominal Exam: Normal Bowel Sounds - Rectal Exam Rectal Exam: Deferred - Exam External exam: NORMAL EXTERNAL EXAM - Extremities Exam Extremities exam: pedal pulses present - Back Exam Back exam: NORMAL INSPECTION - Neurological Exam Neurological exam: Oriented x3 - Psychiatric Exam Psychiatric exam: Depressed Discharge Plan - Follow Up Plan Condition: STABLE Disposition: HOME/ ROUTINE Instructions: Heart Failure (DC), Diabetes Mellitus Type 2 in Adults (DC), End Stage Kidney Disease (DC) Additional Instructions: PLEASE FOLLOW UP WITH DR ARANDA IN THE OFFICE WITHIN ONE WEEK PLEASE FOLLOW UP WITH DR ESCOBAR IN THE OFFICE WITHIN ONE WEEK FOLLOW UP WITH DR DUMONT IN THE OFFICE WITHIN ONE WEEK FOLLOW UP WITH DR GUAMAN IN THE OFFICE WITHIN ONE WEEK CONTINUE MEDS PER MED REC CONTINUE HD SCHEDULE ON PROMISE CARE WITH HOME PT PLEASE CALL DR ARANDA'S OFFICE IF YOU HAVE ANY FURTHER QUESTIONS RETURN TO ED IF WORSENING SYMPTOMS ABOVE DISCHARGE PLANNING DISCUSSED WITH PT AND DAUGHTERS, AGREE, VERBALIZE UNDERSTANDING Referrals: Tra Dumont MD [Staff Provider] - Valdez Aranda MD [Staff Provider] - Kanika Escobar MD [Staff Provider] - Efren Mei MD [Staff Provider] - Francisco Javier Guaman MD [Staff Provider] -
== END 2016-12-29 15:35 | disposition home or self-care (01) | DRG 291 ==
LOC: C.ER 09:51 → C.6T 12:36
PROVIDERS: ADMIT Internal Medicine; ATTEND Internal Medicine
PROC: 5A1D60Z (ICD-10-PCS; principal; 2016-12-24)
DX: I13.2 Hypertensive heart and chronic kidney disease with heart failure and with stage 5 chronic kidney disease, or end stage renal disease (principal); G93.41 Metabolic encephalopathy; E11.00 Type 2 diabetes mellitus with hyperosmolarity without nonketotic hyperglycemic-hyperosmolar coma (NKHHC); N18.6 End stage renal disease; F02.81 Dementia in other diseases classified elsewhere, unspecified severity, with behavioral disturbance; F05 Delirium due to known physiological condition; E11.22 Type 2 diabetes mellitus with diabetic chronic kidney disease; G30.1 Alzheimer's disease with late onset; E86.0 Dehydration; I50.9 Heart failure, unspecified; E11.65 Type 2 diabetes mellitus with hyperglycemia; Z99.2 Dependence on renal dialysis; F32.9 Major depressive disorder, single episode, unspecified; E87.5 Hyperkalemia; J44.9 Chronic obstructive pulmonary disease, unspecified; J45.909 Unspecified asthma, uncomplicated; D63.1 Anemia in chronic kidney disease; Z79.4 Long term (current) use of insulin; E11.319 Type 2 diabetes mellitus with unspecified diabetic retinopathy without macular edema; E11.42 Type 2 diabetes mellitus with diabetic polyneuropathy; E78.5 Hyperlipidemia, unspecified; E78.00 Pure hypercholesterolemia, unspecified; I73.9 Peripheral vascular disease, unspecified; F01.50 Vascular dementia, unspecified severity, without behavioral disturbance, psychotic disturbance, mood disturbance, and anxiety; I25.10 Atherosclerotic heart disease of native coronary artery without angina pectoris; Z86.73 Personal history of transient ischemic attack (TIA), and cerebral infarction without residual deficits; Z82.49 Family history of ischemic heart disease and other diseases of the circulatory system; Z83.3 Family history of diabetes mellitus; Z79.899 Other long term (current) drug therapy; M19.90 Unspecified osteoarthritis, unspecified site; K21.9 Gastro-esophageal reflux disease without esophagitis; H54.42 Blindness, left eye, normal vision right eye; Z87.440 Personal history of urinary (tract) infections

== ENCOUNTER 2016-12-31 13:22 | Emergency (ER) | payer MEDICARE, OTHER ==
[2016-12-31 13:37] VITALS: BMI 29.7
--- NOTE | 2016-12-31 14:36 | C.PDOC ---
History Of Present Illness 81 y/o female is referred to the ED from dialysis after reported chest pain just prior to arrival. Per EMS patient was given Aspirin and Nitro prior to arrival. Patient reports she is pain free at this time and states, "I want nothing done here, I want to go home. Call my nephew, call my daughter." Discussed at length with the patient at bedside but patient continues to refuse evaluation. Patient denies any shortness of breath, vomiting, fever, cough, or other complaints. Time Seen by Provider: 12/31/16 14:09 Chief Complaint (Nursing): Chest Pain History Per: Patient, EMS History/Exam Limitations: no limitations Onset/Duration Of Symptoms: Mins, Gradual, Persistent Current Symptoms Are (Timing): Gone Nitro Therapy Administered: Per EMS, Complete Relief Recent travel outside of the [place]: No Past Medical History Reviewed: Historical Data, Nursing Documentation, Vital Signs Vital Signs: Last Vital Signs Temp 98.3 F 12/31/16 15:29 Pulse 75 12/31/16 15:29 Resp 18 12/31/16 15:29 BP 143/58 L 12/31/16 15:29 Pulse Ox 99 12/31/16 15:51 - Medical History PMH: Anxiety, Arthritis, Asthma, Bronchitis, Cardia Arrhythmia, CHF, COPD, Dementia, Depression, Diabetes (type 2), Emphysema, Fractures, HTN, Hypercholesterolemia, Migraine, End Stage Renal Disease (dialysis M,W,F), Chronic Kidney Disease, TIA Surgical History: No Surg Hx - [facility] Procedures ASSISTANCE WITH RESPIRATORY VENTILATION, 24-96 HRS, CPAP (11/01/16) INSERTION OF INFUSION DEV INTO INF VENA CAVA, PERC APPROACH (10/06/15) PERFORMANCE OF URINARY FILTRATION, MULTIPLE (01/22/16) PERFORMANCE OF URINARY FILTRATION, SINGLE (11/01/16) Family History: States: Unknown Family Hx - Social History Hx Tobacco Use: No Hx Alcohol Use: No Hx Substance Use: No - Immunization History Hx Tetanus Toxoid Vaccination: Yes Hx Influenza Vaccination: Yes (06/2015) Hx Pneumococcal Vaccination: Yes (2014) Review Of Systems Except As Marked, All Systems Reviewed And Found Negative. Constitutional: Negative for: Fever Cardiovascular: Positive for: Chest Pain Respiratory: Negative for: Cough, Shortness of Breath Gastrointestinal: Negative for: Vomiting Physical Exam - Physical Exam Appears: Non-toxic, No Acute Distress Skin: Normal Color, Warm, Dry Head: Atraumatic, Normacephalic Eye(s): bilateral: Normal Inspection, PERRL Neck: Normal ROM, Supple Chest: Symmetrical, No Tenderness Cardiovascular: Rhythm Regular Respiratory: Normal Breath Sounds, No Rales, No Rhonchi, No Wheezing Gastrointestinal/Abdominal: Normal Exam, Soft, No Tenderness Extremity: Normal ROM, No Swelling Neurological/Psych: Oriented x3, Normal Speech, Normal Cognition ED Course And Treatment ECG: Interpreted By Me ECG Rhythm: Sinus Rhythm Interpretation Of ECG: no ST/T changes Rate From EC (bpm) O2 Sat by Pulse Oximetry: 99 (ra) Pulse Ox Interpretation: Normal Medical Decision Making Medical Decision Making: Patient refusing any evaluation in the ED. Risks were discussed in length with the patient who expresses understanding. Patient stating that she wants to leave the ED against medical advice. This patient is choosing to leave against medical advice. I have personally explained to the patient that choosing to do so may result in permanent bodily harm or . I have discussed at great length that without further evaluation and monitoring there may be unforeseen circumstances and/or deterioration causing permanent bodily harm or as a result of their choice. The patient verbalized these risks back to me in laymans terms. The patient is alert, oriented, and shows the mental capacity to make clear decisions regarding the patients health care at this time. The patient continues to wish to leave against medical advice. In light of the patients decision to leave AMA, follow-up has been arranged and the patient is aware of the importance of following up as instructed. The patient has been advised that they should return to the ED immediately if they change their mind at any time, or if their condition begins to change or worsen in any way. Disposition - Disposition Referrals: [facility] [Outside] [facility] [Outside] Efren Santiago MD [Staff Provider] - Disposition: AGAINST MEDICAL ADVICE Disposition Time: 16:22 Condition: UNKNOWN Additional Instructions: return to er with any worsening symptoms or concerns. Instructions: Chest Pain (ED), Against Medical Advice (ED) - Clinical Impression Clinical Impression: Chest pain, Left against medical advice - Scribe Statement The provider has reviewed the documentation as recorded by the Scribe (Tasha Sow) Provider Attestation: All medical record entries made by the Scribe were at my direction and personally dictated by me. I have reviewed the chart and agree that the record accurately reflects my personal performance of the history, physical exam, medical decision making, and the department course for this patient. I have also personally directed, reviewed, and agree with the discharge instructions and disposition.
[2016-12-31 15:30] VITALS: BP 143/58; PULSE 75; RESP 18; TEMP 98.3
[2016-12-31 15:51] VITALS: O2SAT 99
== END 2016-12-31 15:30 | disposition left against medical advice (07) ==
LOC: C.ER 13:22
DX: R07.9 Chest pain, unspecified (principal)

== ENCOUNTER 2017-07-12 11:43 | Inpatient (IN) | payer MEDICARE, OTHER ==
[2017-07-12 11:51] VITALS: BMI 21.4
[2017-07-12 13:42] LABS: BASO % 0.8 % (0.0-2.0); EOS # 0.2 K/uL (0.0-0.7); EOS % 3.1 % (0.0-4.0); HEMATOCRIT 33.3 % (34.0-47.0); LYMPH % 16.9 % (20.0-40.0); MEAN CELL VOLUME 86.4 fL (81.0-99.0); MEAN CORPUSCULAR HEMOGLOBIN 28.1 pg (27.0-31.0); MEAN CORPUSCULAR HGB CONC 32.5 g/dL (33.0-37.0); MEAN PLATELET VOLUME 10.8 fL (7.2-11.7); MONO # 0.7 K/uL (0.0-0.8); MONO % 12.3 % (0.0-10.0); NRBC % 0.2 % (0.0-2.0); RED CELL DISTRIBUTION WIDTH 15.2 % (11.5-14.5); WHITE BLOOD COUNT 5.9 K/uL (4.8-10.8)
[2017-07-12 13:52] LABS: POTASSIUM 4.7 mmol/L (3.6-5.2)
[2017-07-12 13:54] LABS: BILIRUBIN,TOTAL 0.7 mg/dL (0.2-1.3)
[2017-07-12 13:55] LABS: CALCIUM 9.1 mg/dl (8.6-10.4); TOTAL PROTEIN 6.9 g/dL (6.3-8.3)
[2017-07-12 14:05] LABS: TROPONIN I 0.041 ng/mL (0.00-0.120)
--- NOTE | 2017-07-12 14:14 | C.PDOC ---
History Of Present Illness 81 y/o female brought to emergency department by EMS with complaints of chest pain and sob earlier today while on dialysis. While on route patient was given Aspirin and Nitrate. As per patient she was unable to complete dialysis and denies nausea, vomiting, back pain, cough or any other complaint at this time. Chief Complaint (Nursing): Chest Pain History Per: Patient History/Exam Limitations: no limitations Onset/Duration Of Symptoms: Hrs Current Symptoms Are (Timing): Better Quality: "Pain" Past Medical History Reviewed: Historical Data, Nursing Documentation, Vital Signs Vital Signs: Last Vital Signs Temp 97.9 F 07/12/17 12:07 Pulse 91 H 07/12/17 15:46 Resp 22 07/12/17 15:46 BP 166/67 H 07/12/17 15:46 Pulse Ox 96 07/12/17 15:46 - Medical History PMH: Anxiety, Arthritis, Asthma, Bronchitis, Cardia Arrhythmia, CHF, COPD, Dementia, Depression, Diabetes (type 2), Emphysema, Fractures, HTN, Hypercholesterolemia, Migraine, End Stage Renal Disease (dialysis M,W,F), Chronic Kidney Disease, TIA Surgical History: No Surg Hx - [facility] Procedures ASSISTANCE WITH RESPIRATORY VENTILATION, 24-96 HRS, CPAP (11/01/16) INSERTION OF INFUSION DEV INTO INF VENA CAVA, PERC APPROACH (10/06/15) PERFORMANCE OF URINARY FILTRATION, MULTIPLE (12/24/16) PERFORMANCE OF URINARY FILTRATION, SINGLE (11/01/16) Family History: States: No Known Family Hx - Social History Hx Tobacco Use: No Hx Alcohol Use: No Hx Substance Use: No - Immunization History Hx Tetanus Toxoid Vaccination: Yes Hx Influenza Vaccination: Yes (06/2015) Hx Pneumococcal Vaccination: Yes (2014) Review Of Systems Except As Marked, All Systems Reviewed And Found Negative. Cardiovascular: Positive for: Chest Pain Respiratory: Positive for: Shortness of Breath Physical Exam - Physical Exam Appears: Non-toxic, No Acute Distress Skin: Normal Color, Warm, Dry, No Rash Head: Atraumatic, Normacephalic Oral Mucosa: Moist Neck: Normal ROM, Supple Chest: Symmetrical Cardiovascular: Rhythm Regular Respiratory: Normal Breath Sounds, No Rales, No Rhonchi, No Wheezing Gastrointestinal/Abdominal: Soft, No Tenderness, No Guarding, No Rebound Extremity: Other (Palpable thrill on right fistula) Neurological/Psych: Oriented x3 ED Course And Treatment - Laboratory Results Result Diagrams: 07/12/17 13:35 07/12/17 13:35 ECG: Interpreted By Me, Viewed By Me ECG Rhythm: Sinus Tachycardia Interpretation Of ECG: Left anterior Fascicular block, LVH, T wave abnormality, consider lateral ischemia Rate From EC (bpm) O2 Sat by Pulse Oximetry: 95 (RA) Pulse Ox Interpretation: Normal Medical Decision Making Medical Decision Making: Plan: ECG, IV fluids, CXR Progress: Admit to Dr. Mccracken to [facility] for CHest pain, Hyperglycemia Disposition Discussed With : Valdez Mccracken Doctor Will See Patient In The: Hospital Counseled Patient/Family Regarding: Diagnosis - Disposition Disposition: HOSPITALIZED Condition: FAIR Forms: [employer] [facility] (Slovenian) - Clinical Impression Clinical Impression: Chest discomfort, DM (diabetes mellitus) type I uncontrolled with renal manifestation, CHF (congestive heart failure), Chronic kidney disease with end stage renal failure on dialysis - Scribe Statement The provider has reviewed the documentation as recorded by the Floweribdre Hernandes All medical record entries made by the Floweribdre were at my direction and personally dictated by me. I have reviewed the chart and agree that the record accurately reflects my personal performance of the history, physical exam, medical decision making, and the department course for this patient. I have also personally directed, reviewed, and agree with the discharge instructions and disposition.
[2017-07-12] MEDS ORDERED: (Novolin R) Insulin Human Regular 100 units/ml vial IV ONE ×2 (14:53→17:04)
[2017-07-12] MEDS ORDERED: (Novolin R) Insulin Human Regular 100 units/ml vial ONE ×3 (15:15→22:43)
--- NOTE | 2017-07-12 19:51 | RAD ---
PROCEDURE: CHEST RADIOGRAPH, 1 VIEW HISTORY: chest pain COMPARISON: 12/28/2016. FINDINGS: There is stable appearance of a right subclavian endovascular stent graft. LUNGS: There is low lung volume on the right. The left lung is well inflated. The lungs are clear. PLEURA: No pneumothorax or pleural fluid seen. CARDIOVASCULAR: There is mild cardiomegaly. OSSEOUS STRUCTURES: Within normal limits for the patient's age. VISUALIZED UPPER ABDOMEN: Normal. OTHER FINDINGS: There is chronic elevation of the right hemidiaphragm. IMPRESSION: No acute findings. Stable chronic elevation of the right hemidiaphragm.
--- NOTE | 2017-07-12 22:39 | CP.PCM.HP ---
History of Present Illness - History of Present Illness History of Present Illness: 81 year old female who developed chest pain while receiving regularly scheduled dialysis treatment. She was taken to the [facility] ER. Patient was evaluated and admission was advised to a telemetry unit. Past history includes diabetes mellitus, hypertension and severe depression. Present on Admission - Present on Admission Any Indicators Present on Admission: No History of DVT/PE: No History of Uncontrolled Diabetes: No Urinary Catheter: No Decubitus Ulcer Present: No History Surgical Site Infection Following: None Review of Systems - Constitutional Constitutional: Fatigue, Headache - EENT Ears: As Per HPI Nose/Mouth/Throat: As Per HPI - Cardiovascular Cardiovascular: Chest Pain at Rest - Respiratory Respiratory: Dyspnea on Exertion - Genitourinary Genitourinary: Urinary Frequency - Reproductive: Female Reproductive:Female: Post Menopausal - Menstruation Menstruation: Post Menopausal - Musculoskeletal Musculoskeletal: Arthralgias - Integumentary Integumentary: Dry Skin Past Patient History - Infectious Disease Hx of Infectious Diseases: None - Tetanus Immunizations Tetanus Immunization: Unknown, Up to Date - Past Medical History & Family History Past Medical History?: Yes - Past Social History Smoking Status: Never Smoked Chewing Tobacco Use: No Cigar Use: No Alcohol: None Drugs: Denies Home Situation {Lives}: Alone - CARDIAC Hx Cardiac Disorders: Yes Hx Cardia Arrhythmia: Yes Hx Congestive Heart Failure: Yes Hx Hypercholesterolemia: Yes Hx Hypertension: Yes - PULMONARY Hx Respiratory Disorders: Yes Hx Asthma: Yes Hx Bronchitis: Yes Hx Chronic Obstructive Pulmonary Disease (COPD): Yes Hx Emphysema: Yes - NEUROLOGICAL Hx Neurological Disorder: Yes Hx Dementia: Yes Hx Migraine: Yes Hx Transient Ischemic Attacks (TIA): Yes - HEENT Hx HEENT Problems: Yes Hx Blind: Yes (Left eye.) - RENAL Hx Chronic Kidney Disease: Yes Hx Dialysis: Yes Date of Last Dialysis Treatment: 07/11/17 - ENDOCRINE/METABOLIC Hx Endocrine Disorders: Yes Hx Diabetes Mellitus Type 2: Yes - HEMATOLOGICAL/ONCOLOGICAL Hx Human Immunodeficiency Virus (HIV): No - INTEGUMENTARY Hx Dermatological Problems: Yes Hx Cellulitis: Yes Hx Eczema: Yes - MUSCULOSKELETAL/RHEUMATOLOGICAL Hx Falls: Yes - GASTROINTESTINAL Hx Gastrointestinal Disorders: Yes Hx Gastroesophageal Reflux: Yes Hx Hemorrhoids: Yes - GENITOURINARY/GYNECOLOGICAL Hx Genitourinary Disorders: Yes Hx Urinary Tract Infection: Yes - PSYCHIATRIC Hx Substance Use: No - SURGICAL HISTORY Hx Surgeries: Yes Hx Arteriovenous Shunt: Yes (right arm) - ANESTHESIA Hx Anesthesia: Yes Hx Anesthesia Reactions: No Meds Allergies/Adverse Reactions: Allergies Allergy/AdvReac Type Severity Reaction Status Date / Time No Known Allergies Allergy Verified 07/12/17 11:50 Physical Exam - Constitutional Appears: Chronically Ill - Head Exam Head Exam: NORMAL INSPECTION - Eye Exam Eye Exam: Normal appearance Pupil Exam: NORMAL ACCOMODATION - ENT Exam ENT Exam: Normal Exam - Neck Exam Neck exam: Positive for: Normal Inspection - Respiratory Exam Respiratory Exam: Decreased Breath Sounds - Cardiovascular Exam Cardiovascular Exam: REGULAR RHYTHM - GI/Abdominal Exam GI & Abdominal Exam: Hyperactive Bowel Sounds - Rectal Exam Rectal Exam: Deferred - Exam External exam: NORMAL EXTERNAL EXAM - Neurological Exam Neurological exam: Altered - Psychiatric Exam Psychiatric exam: Depressed - Skin Skin Exam: Dry Results - Vital Signs Recent Vital Signs: Last Vital Signs Temp 97.9 F 07/12/17 19:09 Pulse 78 07/12/17 19:09 Resp 20 07/12/17 19:09 BP 182/71 H 07/12/17 19:09 Pulse Ox 97 07/12/17 19:09 - Labs Result Diagrams: 07/12/17 13:35 07/12/17 13:35 Labs: Laboratory Results - last 24 hr 07/12/17 07/12/17 07/12/17 13:35 13:35 16:21 WBC 5.9 RBC 3.86 Hgb 10.8 L Hct 33.3 L MCV 86.4 D MCH 28.1 MCHC 32.5 L RDW 15.2 H Plt Count 167 MPV 10.8 Neut % (Auto) 66.9 Lymph % (Auto) 16.9 L Bradford % (Auto) 12.3 H Eos % (Auto) 3.1 Baso % (Auto) 0.8 Neut # 4.0 Lymph # 1.0 Bradford # 0.7 Eos # 0.2 Baso # 0.0 Sodium 130 L Potassium 4.7 Chloride 95 L Carbon Dioxide 21 L Anion Gap 19 BUN 40 H Creatinine 2.5 H Est GFR ( Amer) 22 Est GFR (Non-Af Amer) 18 POC Glucose (mg/dL) 449 H* Random Glucose 593 H* D Calcium 9.1 Total Bilirubin 0.7 AST 33 ALT 34 Alkaline Phosphatase 176 H Troponin I 0.0410 NT-Pro-B Natriuret Pep 4370 H Total Protein 6.9 Albumin 3.5 Globulin 3.4 Albumin/Globulin Ratio 1.0 Assessment & Plan (1) Chest pain Status: Acute (2) Chronic kidney disease with end stage renal failure on dialysis Status: Chronic Priority: Medium (3) Uncontrolled diabetes mellitus Status: Acute Priority: Medium (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
[2017-07-12] MEDS ORDERED: (Lantus) Insulin Glargine, Recombinant SC ONE (22:41)
[2017-07-12] MEDS: (Novolin R) Insulin Human Regular 100 units/ml vial SC SCH (22:53)
[2017-07-12] MEDS: (Lantus) Insulin Glargine, Recombinant SC SCH (22:53)
[2017-07-13 07:36] LABS: HEMATOCRIT 34.3 % (34.0-47.0); MEAN CORPUSCULAR HEMOGLOBIN 28.5 pg (27.0-31.0); MEAN CORPUSCULAR HGB CONC 33.6 g/dL (33.0-37.0); MEAN PLATELET VOLUME 9.8 fL (7.2-11.7); RED CELL DISTRIBUTION WIDTH 15.2 % (11.5-14.5); WHITE BLOOD COUNT 6.4 K/uL (4.8-10.8)
[2017-07-13 07:41] LABS: POTASSIUM 4.1 mmol/L (3.6-5.2)
[2017-07-13 07:45] LABS: CALCIUM 9.7 mg/dl (8.6-10.4)
[2017-07-13] MEDS: (Novolog) Insulin Aspart, Recombinant 100 u/ml 10 ml vial SC SCH ×3 (08:44→17:26)
[2017-07-13] MEDS: (Novolin R) Insulin Human Regular 100 units/ml vial SC SCH ×4 (08:45→22:11)
[2017-07-13] MEDS: Multivitamin Vitamin B Complex (Nephro-Vite) Tab PO SCH (09:43)
--- NOTE | 2017-07-13 19:55 | CP.PCM.PN ---
Subjective - Date & Time of Evaluation Date of Evaluation: 07/13/17 Time of Evaluation: 16:00 - Subjective Subjective: Patient has just completed dialysis. She is lethargic. EKG demonstrates left fasicular block. Consult requested with cardiology. Serial troponin requested. Objective - Vital Signs/Intake and Output Vital Signs (last 24 hours): Temp Pulse Resp BP Pulse Ox 97.3 F L 58 L 18 113/65 97 07/13/17 13:20 07/13/17 16:20 07/13/17 15:20 07/13/17 15:20 07/13/17 15:20 Intake and Output: 07/13/17 07/14/17 18:59 06:59 Intake Total 600 Output Total 1 Balance 599 - Medications Medications: Current Medications Atenolol (Tenormin) 50 mg PO DAILY [facility] Last Admin: 07/13/17 09:43 Dose: 50 mg Clopidogrel Bisulfate (Plavix) 75 mg PO DAILY [facility] Last Admin: 07/13/17 09:43 Dose: 75 mg Donepezil HCl (Aricept) 10 mg PO HS [facility] Last Admin: 07/12/17 22:53 Dose: 10 mg Famotidine (Pepcid) 20 mg PO DAILY [facility] Last Admin: 07/13/17 09:43 Dose: 20 mg Heparin Sodium (Porcine) (Heparin) 5,000 units SC Q12 [facility] Hydralazine HCl (Apresoline) 25 mg PO BID [facility] Last Admin: 07/13/17 18:50 Dose: 25 mg Insulin Aspart (Novolog) 10 unit SC AC [facility] Last Admin: 07/13/17 17:26 Dose: Not Given Insulin Glargine (Lantus) 26 unit SC [facility] Last Admin: 07/12/17 22:53 Dose: 26 units Insulin Human Regular (Novolin R) 0 unit SC [facility] PRN Reason: Protocol Last Admin: 07/13/17 17:25 Dose: Not Given Montelukast Sodium (Singulair) 10 mg PO DAILY [facility] Last Admin: 07/13/17 09:43 Dose: 10 mg Oxybutynin Chloride (Ditropan Tab) 5 mg PO DAILY [facility] Last Admin: 07/13/17 09:44 Dose: 5 mg Quetiapine Fumarate (Seroquel) 25 mg PO DAILY [facility] Last Admin: 07/13/17 09:48 Dose: 25 mg Rosuvastatin Calcium (Crestor) 5 mg PO HS [facility] Last Admin: 07/12/17 22:53 Dose: 5 mg Sevelamer Carbonate (Renvela) 800 mg PO TIDCC [facility] Last Admin: 07/13/17 18:47 Dose: 800 mg Vitamin B Complex/Vit C/Folic Acid (Nephro-Marina) 1 tab PO DAILY [facility] Last Admin: 07/13/17 09:43 Dose: 1 tab - Labs Labs: 07/13/17 07:20 07/13/17 07:20 - Constitutional Appears: No Acute Distress - Head Exam Head Exam: NORMAL INSPECTION - Eye Exam Eye Exam: Normal appearance, Scleral icterus - Neck Exam Neck Exam: Normal Inspection - Respiratory Exam Respiratory Exam: Decreased Breath Sounds - Cardiovascular Exam Cardiovascular Exam: REGULAR RHYTHM - GI/Abdominal Exam GI & Abdominal Exam: Hyperactive Bowel Sounds - Rectal Exam Rectal Exam: Deferred - Exam External exam: NORMAL EXTERNAL EXAM - Extremities Exam Extremities Exam: Tenderness - Back Exam Back Exam: muscle spasm - Neurological Exam Neurological Exam: Altered - Psychiatric Exam Psychiatric exam: Depressed - Skin Skin Exam: Dry Assessment and Plan (1) Chest pain Status: Acute (2) Chronic kidney disease with end stage renal failure on dialysis Status: Chronic (3) Uncontrolled diabetes mellitus Status: Acute (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
[2017-07-13] MEDS: (Lantus) Insulin Glargine, Recombinant SC SCH (22:10)
--- NOTE | 2017-07-13 22:29 | CP.PCM.CON ---
History of Present Illness - History of Present Illness History of Present Illness: REASONS FOR CONSULT : ESRD ON HD M W F ANEMIA OF CKD .. H/H STABLE ESRD RELATED COMPLICATIONS ALL EMR REVIEWED .. LABS REVIEWED .. PT WAS SEEN AND EXAMINED PT IS WELL KNOWN TO ME .. ON HD M W F .. HAD C/P FEW MINUTES WHILE ON HER SCHEDULED OUT PT HD AND WAS SENT TO ER FOR NEHEMIAH .. SEEN AND EXAMINED WHILE ON HER HD History Of Present Illness 81 y/o female brought to emergency department by EMS with complaints of chest pain and sob earlier today while on dialysis. While on route patient was given Aspirin and Nitrate. As per patient she was unable to complete dialysis and denies nausea, vomiting, back pain, cough or any other complaint at this time. Chief Complaint (Nursing): Chest Pain History Per: Patient History/Exam Limitations: no limitations Onset/Duration Of Symptoms: Hrs Current Symptoms Are (Timing): Better Quality: "Pain" Past Medical History Reviewed: Historical Data, Nursing Documentation, Vital Signs Vital Signs: Last Vital Signs Temp 97.9 F 07/12/17 12:07 Pulse 91 H 07/12/17 15:46 Resp 22 07/12/17 15:46 BP 166/67 H 07/12/17 15:46 Pulse Ox 96 07/12/17 15:46 - Medical History PMH: Anxiety, Arthritis, Asthma, Bronchitis, Cardia Arrhythmia, CHF, COPD, Dementia, Depression, Diabetes (type 2), Emphysema, Fractures, HTN, Hypercholesterolemia, Migraine, End Stage Renal Disease (dialysis M,W,F), Chronic Kidney Disease, TIA Surgical History: No Surg Hx Past Patient History - Infectious Disease Hx of Infectious Diseases: None - Tetanus Immunizations Tetanus Immunization: Unknown, Up to Date - Past Medical History & Family History Past Medical History?: Yes - Past Social History Smoking Status: Never Smoked Chewing Tobacco Use: No Cigar Use: No Alcohol: None Drugs: Denies Home Situation {Lives}: Alone - CARDIAC Hx Cardiac Disorders: Yes Hx Cardia Arrhythmia: Yes Hx Congestive Heart Failure: Yes Hx Hypercholesterolemia: Yes Hx Hypertension: Yes - PULMONARY Hx Respiratory Disorders: Yes Hx Asthma: Yes Hx Bronchitis: Yes Hx Chronic Obstructive Pulmonary Disease (COPD): Yes Hx Emphysema: Yes - NEUROLOGICAL Hx Neurological Disorder: Yes Hx Dementia: Yes Hx Migraine: Yes Hx Transient Ischemic Attacks (TIA): Yes - HEENT Hx HEENT Problems: Yes Hx Blind: Yes (Left eye.) - RENAL Hx Chronic Kidney Disease: Yes Hx Dialysis: Yes Date of Last Dialysis Treatment: 07/11/17 - ENDOCRINE/METABOLIC Hx Endocrine Disorders: Yes Hx Diabetes Mellitus Type 2: Yes - HEMATOLOGICAL/ONCOLOGICAL Hx Human Immunodeficiency Virus (HIV): No - INTEGUMENTARY Hx Dermatological Problems: Yes Hx Cellulitis: Yes Hx Eczema: Yes - MUSCULOSKELETAL/RHEUMATOLOGICAL Hx Falls: Yes - GASTROINTESTINAL Hx Gastrointestinal Disorders: Yes Hx Gastroesophageal Reflux: Yes Hx Hemorrhoids: Yes - GENITOURINARY/GYNECOLOGICAL Hx Genitourinary Disorders: Yes Hx Urinary Tract Infection: Yes - PSYCHIATRIC Hx Substance Use: No - SURGICAL HISTORY Hx Surgeries: Yes Hx Arteriovenous Shunt: Yes (right arm) - ANESTHESIA Hx Anesthesia: Yes Hx Anesthesia Reactions: No Meds Allergies/Adverse Reactions: Allergies Allergy/AdvReac Type Severity Reaction Status Date / Time No Known Allergies Allergy Verified 07/12/17 11:50 - Medications Medications: Current Medications Atenolol (Tenormin) 50 mg PO DAILY [facility] Last Admin: 07/13/17 09:43 Dose: 50 mg Clopidogrel Bisulfate (Plavix) 75 mg PO DAILY [facility] Last Admin: 07/13/17 09:43 Dose: 75 mg Donepezil HCl (Aricept) 10 mg PO HS [facility] Last Admin: 07/13/17 22:10 Dose: 10 mg Famotidine (Pepcid) 20 mg PO DAILY [facility] Last Admin: 07/13/17 09:43 Dose: 20 mg Heparin Sodium (Porcine) (Heparin) 5,000 units SC Q12 [facility] Hydralazine HCl (Apresoline) 25 mg PO BID [facility] Last Admin: 07/13/17 18:50 Dose: 25 mg Insulin Aspart (Novolog) 10 unit SC AC [facility] Last Admin: 07/13/17 17:26 Dose: Not Given Insulin Glargine (Lantus) 26 unit SC HS [facility] Last Admin: 07/13/17 22:10 Dose: 26 units Insulin Human Regular (Novolin R) 0 unit SC [facility] PRN Reason: Protocol Last Admin: 07/13/17 22:11 Dose: Not Given Montelukast Sodium (Singulair) 10 mg PO DAILY [facility] Last Admin: 07/13/17 09:43 Dose: 10 mg Oxybutynin Chloride (Ditropan Tab) 5 mg PO DAILY [facility] Last Admin: 07/13/17 09:44 Dose: 5 mg Quetiapine Fumarate (Seroquel) 25 mg PO DAILY [facility] Last Admin: 07/13/17 09:48 Dose: 25 mg Rosuvastatin Calcium (Crestor) 5 mg PO HS [facility] Last Admin: 07/13/17 22:10 Dose: 5 mg Sevelamer Carbonate (Renvela) 800 mg PO TIDCC [facility] Last Admin: 07/13/17 18:47 Dose: 800 mg Vitamin B Complex/Vit C/Folic Acid (Nephro-Marina) 1 tab PO DAILY [facility] Last Admin: 07/13/17 09:43 Dose: 1 tab Results - Vital Signs Recent Vital Signs: Last Vital Signs Temp 97.3 F L 07/13/17 13:20 Pulse 58 L 07/13/17 16:20 Resp 18 07/13/17 15:20 BP 113/65 07/13/17 15:20 Pulse Ox 97 07/13/17 15:20 - Labs Result Diagrams: 07/13/17 07:20 07/13/17 07:20 Labs: Laboratory Results - last 24 hr 07/12/17 07/12/17 07/12/17 17:50 21:35 23:22 WBC RBC Hgb Hct MCV MCH MCHC RDW Plt Count MPV Sodium Potassium Chloride Carbon Dioxide Anion Gap BUN Creatinine Est GFR ( Amer) Est GFR (Non-Af Amer) POC Glucose (mg/dL) 332 H 426 H* Random Glucose Calcium Total Creatine Kinase 33 CK-MB (Mass) 0.67 Troponin I, Quant 0.0770 07/13/17 07/13/17 07/13/17 02:16 06:30 07:20 WBC 6.4 RBC 4.04 Hgb 11.5 Hct 34.3 MCV 85.0 MCH 28.5 MCHC 33.6 RDW 15.2 H Plt Count 208 MPV 9.8 Sodium Potassium Chloride Carbon Dioxide Anion Gap BUN Creatinine Est GFR ( Amer) Est GFR (Non-Af Amer) POC Glucose (mg/dL) 399 H 273 H Random Glucose Calcium Total Creatine Kinase CK-MB (Mass) Troponin I, Quant 07/13/17 07/13/17 07/13/17 07:20 11:56 17:20 WBC RBC Hgb Hct MCV MCH MCHC RDW Plt Count MPV Sodium 138 Potassium 4.1 Chloride 102 Carbon Dioxide 25 Anion Gap 15 BUN 40 H Creatinine 2.9 H Est GFR ( Amer) 19 Est GFR (Non-Af Amer) 16 POC Glucose (mg/dL) 293 H 52 L Random Glucose 256 H Calcium 9.7 Total Creatine Kinase 38 CK-MB (Mass) 0.69 Troponin I, Quant 0.0730 07/13/17 07/13/17 17:46 21:06 WBC RBC Hgb Hct MCV MCH MCHC RDW Plt Count MPV Sodium Potassium Chloride Carbon Dioxide Anion Gap BUN Creatinine Est GFR ( Amer) Est GFR (Non-Af Amer) POC Glucose (mg/dL) 75 168 H Random Glucose Calcium Total Creatine Kinase CK-MB (Mass) Troponin I, Quant Assessment & Plan - Assessment and Plan (Free Text) Plan: ESRD ON HD MWF .. ON HD NOW SAT SHE DID NOT [facility]AZ[facility] HER HD YESTARDAY ANEMIA OF CKD .. H/H GOOD C/P .. NEEDS CARDIAC W/U MULTIPLE CO MORBIDITIES P : C/O CURRENT CARE C/O PRESENT MEDS CARDIOLOGE CONSULT - Date & Time Date: 07/13/17 Time: 14:00
[2017-07-14 01:40] VITALS: RESP 20; O2SAT 96
[2017-07-14 04:57] VITALS: BP 174/66; TEMP 97.7
[2017-07-14] MEDS: (Novolin R) Insulin Human Regular 100 units/ml vial SC SCH ×2 (08:10→12:30)
[2017-07-14] MEDS: (Novolog) Insulin Aspart, Recombinant 100 u/ml 10 ml vial SC SCH ×2 (08:10→12:54)
[2017-07-14] MEDS: Multivitamin Vitamin B Complex (Nephro-Vite) Tab PO SCH (10:07)
[2017-07-14] MEDS ORDERED: Albuterol 0.083% Inhal Sol (2.5 mg/3 mL) UD INH SCH (14:00)
[2017-07-14 14:14] LABS: ABG ALLEN TEST POS; CARBOXYHEMOGLOBIN 0.7 % (0.5-1.5); DRAW SITE LRA; HHB 3.6 % (0.0-5.0); METHEMOGLOBIN 0.7 % (0.0-3.0)
--- NOTE | 2017-07-14 15:36 | CP.PCM.CON ---
History of Present Illness - History of Present Illness History of Present Illness: 81 years old female complaining of a left side chest pain and SOB during dialysis. Known to have a ESRD on HD, a HPTN, a IDDM, she deniies any nausea, sweating, palpitation. Serial ECG's reveal an RSR with a LAHB, and a T wave inversion in leads I, aVl, unchanged from previous ECG. An echocardiogram last year revealed an LVH with normal systolic function, a grade I diastolic dysfunction. mild TR, Mr, AI. All 3 TNI's are normal. She has no complaint at the present time. Review of Systems - Cardiovascular Cardiovascular: Chest Pain - Respiratory Respiratory: Dyspnea Past Patient History - Infectious Disease Hx of Infectious Diseases: None - Tetanus Immunizations Tetanus Immunization: Unknown, Up to Date - Past Medical History & Family History Past Medical History?: Yes - Past Social History Smoking Status: Never Smoked Chewing Tobacco Use: No Cigar Use: No Alcohol: None Drugs: Denies Home Situation {Lives}: Alone - CARDIAC Hx Cardiac Disorders: Yes Hx Cardia Arrhythmia: Yes Hx Congestive Heart Failure: Yes Hx Hypercholesterolemia: Yes Hx Hypertension: Yes - PULMONARY Hx Respiratory Disorders: Yes Hx Asthma: Yes Hx Bronchitis: Yes Hx Chronic Obstructive Pulmonary Disease (COPD): Yes Hx Emphysema: Yes - NEUROLOGICAL Hx Neurological Disorder: Yes Hx Dementia: Yes Hx Migraine: Yes Hx Transient Ischemic Attacks (TIA): Yes - HEENT Hx HEENT Problems: Yes Hx Blind: Yes (Left eye.) - RENAL Hx Chronic Kidney Disease: Yes Hx Dialysis: Yes Date of Last Dialysis Treatment: 07/11/17 - ENDOCRINE/METABOLIC Hx Endocrine Disorders: Yes Hx Diabetes Mellitus Type 2: Yes - HEMATOLOGICAL/ONCOLOGICAL Hx Human Immunodeficiency Virus (HIV): No - INTEGUMENTARY Hx Dermatological Problems: Yes Hx Cellulitis: Yes Hx Eczema: Yes - MUSCULOSKELETAL/RHEUMATOLOGICAL Hx Falls: Yes - GASTROINTESTINAL Hx Gastrointestinal Disorders: Yes Hx Gastroesophageal Reflux: Yes Hx Hemorrhoids: Yes - GENITOURINARY/GYNECOLOGICAL Hx Genitourinary Disorders: Yes Hx Urinary Tract Infection: Yes - PSYCHIATRIC Hx Substance Use: No - SURGICAL HISTORY Hx Surgeries: Yes Hx Arteriovenous Shunt: Yes (right arm) - ANESTHESIA Hx Anesthesia: Yes Hx Anesthesia Reactions: No Meds Allergies/Adverse Reactions: Allergies Allergy/AdvReac Type Severity Reaction Status Date / Time No Known Allergies Allergy Verified 07/12/17 11:50 - Medications Medications: Current Medications Albuterol Sulfate (Albuterol 0.083% Inhal Luisa (2.5 Mg/3 Ml) Ud) 2.5 mg INH RQ6 [facility] Atenolol (Tenormin) 50 mg PO DAILY [facility] Last Admin: 07/14/17 10:07 Dose: 50 mg Clopidogrel Bisulfate (Plavix) 75 mg PO DAILY [facility] Last Admin: 07/14/17 10:07 Dose: 75 mg Donepezil HCl (Aricept) 10 mg PO HS [facility] Last Admin: 07/13/17 22:10 Dose: 10 mg Famotidine (Pepcid) 20 mg PO DAILY [facility] Last Admin: 07/14/17 10:08 Dose: 20 mg Heparin Sodium (Porcine) (Heparin) 5,000 units SC Q12 [facility] Hydralazine HCl (Apresoline) 25 mg PO BID [facility] Last Admin: 07/14/17 10:07 Dose: 25 mg Insulin Aspart (Novolog) 10 unit SC AC [facility] Last Admin: 07/14/17 12:54 Dose: 10 unit Insulin Glargine (Lantus) 26 unit SC [facility] Last Admin: 07/13/17 22:10 Dose: 26 units Insulin Human Regular (Novolin R) 0 unit SC [facility] PRN Reason: Protocol Last Admin: 07/14/17 12:30 Dose: 4 unit Montelukast Sodium (Singulair) 10 mg PO DAILY [facility] Last Admin: 07/14/17 10:08 Dose: 10 mg Oxybutynin Chloride (Ditropan Tab) 5 mg PO DAILY [facility] Last Admin: 07/14/17 10:53 Dose: 5 mg Quetiapine Fumarate (Seroquel) 25 mg PO DAILY [facility] Last Admin: 07/14/17 10:07 Dose: 25 mg Rosuvastatin Calcium (Crestor) 5 mg PO HS [facility] Last Admin: 07/13/17 22:10 Dose: 5 mg Sevelamer Carbonate (Renvela) 800 mg PO TIDCC [facility] Last Admin: 07/14/17 12:53 Dose: 800 mg Vitamin B Complex/Vit C/Folic Acid (Nephro-Marina) 1 tab PO DAILY [facility] Last Admin: 07/14/17 10:07 Dose: 1 tab Physical Exam - Constitutional Appears: No Acute Distress, Chronically Ill - Head Exam Head Exam: NORMAL INSPECTION - Eye Exam Eye Exam: Normal appearance - ENT Exam ENT Exam: Normal Exam - Neck Exam Neck exam: Positive for: Normal Inspection - Respiratory Exam Respiratory Exam: Clear to Auscultation Bilateral, NORMAL BREATHING PATTERN - Cardiovascular Exam Cardiovascular Exam: REGULAR RHYTHM, Systolic Murmur - GI/Abdominal Exam GI & Abdominal Exam: Normal Bowel Sounds, Soft - Rectal Exam Rectal Exam: Deferred - Extremities Exam Extremities exam: Positive for: normal inspection - Back Exam Back exam: NORMAL INSPECTION - Neurological Exam Neurological exam: Alert, CN II-XII Intact, Normal Gait, Oriented x3 - Psychiatric Exam Psychiatric exam: Anxious - Skin Skin Exam: Dry, Intact, Normal Color, Warm Results - Vital Signs Recent Vital Signs: Last Vital Signs Temp 97.7 F 07/14/17 04:30 Pulse 54 L 07/14/17 04:30 Resp 20 07/14/17 04:30 BP 174/66 H 07/14/17 04:30 Pulse Ox 96 07/14/17 04:30 - Labs Result Diagrams: 07/13/17 07:20 07/13/17 07:20 Labs: Laboratory Results - last 24 hr 07/13/17 07/13/17 07/13/17 17:20 17:46 21:06 Puncture Site pCO2 pO2 HCO3 ABG pH ABG Total CO2 ABG O2 Saturation ABG Base Excess ABG Hemoglobin ABG Carboxyhemoglobin POC ABG HHb (Measured) ABG Methemoglobin Mohinder Test A-a O2 Difference Respiratory Index Hgb O2 Saturation FiO2 POC Glucose (mg/dL) 52 L 75 168 H 07/14/17 07/14/17 07/14/17 06:48 12:01 14:00 Puncture Site Lra pCO2 38 pO2 78 L HCO3 27.3 ABG pH 7.46 H ABG Total CO2 28.2 H ABG O2 Saturation 96.3 ABG Base Excess 3.1 H ABG Hemoglobin 11.6 L ABG Carboxyhemoglobin 0.7 POC ABG HHb (Measured) 3.6 ABG Methemoglobin 0.7 Mohinder Test Pos A-a O2 Difference 24.0 Respiratory Index 0.3 Hgb O2 Saturation 95.0 FiO2 21.0 POC Glucose (mg/dL) 345 H 304 H Assessment & Plan (1) Chest pain Assessment and Plan: Secondary to chest wall pain. All TNI's are normal. ECG's are unchanged from previous studies. To discharge her home today. Status: Acute (2) Chronic kidney disease with end stage renal failure on dialysis Assessment and Plan: As per DR Diaz. Status: Chronic Priority: Medium (3) DM (diabetes mellitus) type I uncontrolled with renal manifestation Assessment and Plan: To continue Insulin as per Dr Mccracken. Status: Acute
[2017-07-14 17:04] VITALS: PULSE 56
--- NOTE | 2017-07-14 21:31 | CP.PCM.DIS ---
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0) L 07/12/17 13:35 Ellis % (Auto) 12.3 % (0.0-10.0) H 07/12/17 13:35 Eos % (Auto) 3.1 % (0.0-4.0) 07/12/17 13:35 Baso % (Auto) 0.8 % (0.0-2.0) 07/12/17 13:35 Neut # 4.0 K/uL (1.8-7.0) 07/12/17 13:35 Lymph # 1.0 K/uL (1.0-4.3) 07/12/17 13:35 Ellis # 0.7 K/uL (0.0-0.8) 07/12/17 13:35 Eos # 0.2 K/uL (0.0-0.7) 07/12/17 13:35 Baso # 0.0 K/uL (0.0-0.2) 07/12/17 13:35 Puncture Site Lra 07/14/17 14:00 pCO2 38 mm/Hg (35-45) 07/14/17 14:00 pO2 78 mm/Hg (80-100) L 07/14/17 14:00 HCO3 27.3 mmol/L (21-28) 07/14/17 14:00 ABG pH 7.46 (7.35-7.45) H 07/14/17 14:00 ABG Total CO2 28.2 mmol/L (22-28) H 07/14/17 14:00 ABG O2 Saturation 96.3 % (95-98) 07/14/17 14:00 ABG Base Excess 3.1 mmol/L (-2.0-3.0) H 07/14/17 14:00 ABG Hemoglobin 11.6 g/dL (11.7-17.4) L 07/14/17 14:00 ABG Carboxyhemoglobin 0.7 % (0.5-1.5) 07/14/17 14:00 POC ABG HHb (Measured) 3.6 % (0.0-5.0) 07/14/17 14:00 ABG Methemoglobin 0.7 % (0.0-3.0) 07/14/17 14:00 Mohinder Test Pos 07/14/17 14:00 A-a O2 Difference 24.0 mm/Hg 07/14/17 14:00 Respiratory Index 0.3 07/14/17 14:00 Hgb O2 Saturation 95.0 % (95.0-98.0) 07/14/17 14:00 FiO2 21.0 % 07/14/17 14:00 Sodium 138 mmol/L (132-148) 07/13/17 07:20 Potassium 4.1 mmol/L (3.6-5.2) 07/13/17 07:20 Chloride 102 mmol/L (98-107) 07/13/17 07:20 Carbon Dioxide 25 mmol/L (22-30) 07/13/17 07:20 Anion Gap 15 (10-20) 07/13/17 07:20 BUN 40 mg/dL (7-17) H 07/13/17 07:20 Creatinine 2.9 mg/dL (0.7-1.2) H 07/13/17 07:20 Est GFR ( Amer) 19 07/13/17 07:20 Est GFR (Non-Af Amer) 16 07/13/17 07:20 POC Glucose (mg/dL) 304 mg/dL (65-110) H 07/14/17 12:01 Random Glucose 256 mg/dL (65-105) H 07/13/17 07:20 Calcium 9.7 mg/dl (8.6-10.4) 07/13/17 07:20 Total Bilirubin 0.7 mg/dL (0.2-1.3) 07/12/17 13:35 AST 33 U/L (14-36) 07/12/17 13:35 ALT 34 U/L (9-52) 07/12/17 13:35 Alkaline Phosphatase 176 U/L (38-126) H 07/12/17 13:35 Total Creatine Kinase 38 U/L (30-135) 07/13/17 07:20 CK-MB (Mass) 0.69 ng/mL (0.0-3.38) 07/13/17 07:20 Troponin I 0.0410 ng/mL (0.00-0.120) 07/12/17 13:35 Troponin I, Quant 0.0730 ng/mL (0.00-0.120) 07/13/17 07:20 NT-Pro-B Natriuret Pep 4370 pg/mL (0-900) H 07/12/17 13:35 Total Protein 6.9 g/dL (6.3-8.3) 07/12/17 13:35 Albumin 3.5 g/dL (3.5-5.0) 07/12/17 13:35 Globulin 3.4 gm/dL (2.2-3.9) 07/12/17 13:35 Albumin/Globulin Ratio 1.0 (1.0-2.1) 07/12/17 13:35 Discharge Exam - Head Exam Head Exam: NORMAL INSPECTION - Eye Exam Eye Exam: Normal appearance Pupil Exam: NORMAL ACCOMODATION - ENT Exam ENT Exam: Normal Exam - Neck Exam Neck exam: Normal Inspection - Respiratory Exam Respiratory Exam: Decreased Breath Sounds - Cardiovascular Exam Cardiovascular Exam: REGULAR RHYTHM - GI/Abdominal Exam GI & Abdominal Exam: Hyperactive Bowel Sounds - Rectal Exam Rectal Exam: Deferred - Exam External exam: NORMAL EXTERNAL EXAM - Extremities Exam Extremities exam: tenderness - Back Exam Back exam: NORMAL INSPECTION - Neurological Exam Neurological exam: Altered - Psychiatric Exam Psychiatric exam: Depressed - Skin Skin Exam: Dry Discharge Plan - Follow Up Plan Condition: FAIR Disposition: HOME/ ROUTINE Instructions: Heart Failure (DC), Chest Pain (DC), Chronic Kidney Disease (DC) , Renal Failure Diet (DC), Diabetes Mellitus Type 2 in Adults (DC) Referrals: Valdez Mccracken MD [Staff Provider] - Kanika Diaz MD [Staff Provider] -
--- NOTE | 2017-07-21 17:12 | CARD ---
APPROVED REPORT EKG Measurement Heart [id number] <Conclusion> Sinus rhythm with premature atrial complexes in a pattern of bigeminy Left axis deviation T wave abnormality, consider lateral ischemia Abnormal ECG
== END 2017-07-14 17:00 | disposition home or self-care (01) | DRG 313 ==
LOC: C.ER 11:43 → C.9E 17:08 → C.6T 18:17
PROVIDERS: ADMIT Internal Medicine; ATTEND Internal Medicine
PROC: 5A1D70Z Performance of Urinary Filtration, Intermittent, Less than 6 Hours Per Day (ICD-10-PCS; principal; 2017-07-13)
DX: R07.89 Other chest pain (principal); I13.2 Hypertensive heart and chronic kidney disease with heart failure and with stage 5 chronic kidney disease, or end stage renal disease; N18.6 End stage renal disease; F03.90 Unspecified dementia, unspecified severity, without behavioral disturbance, psychotic disturbance, mood disturbance, and anxiety; E10.65 Type 1 diabetes mellitus with hyperglycemia; Z99.2 Dependence on renal dialysis; D63.1 Anemia in chronic kidney disease; E78.00 Pure hypercholesterolemia, unspecified; I50.9 Heart failure, unspecified; J44.9 Chronic obstructive pulmonary disease, unspecified; M19.90 Unspecified osteoarthritis, unspecified site; Z79.4 Long term (current) use of insulin; Z86.73 Personal history of transient ischemic attack (TIA), and cerebral infarction without residual deficits; Z87.440 Personal history of urinary (tract) infections

== ENCOUNTER 2017-07-31 12:57 | Emergency (ER) | payer MEDICARE, OTHER ==
[2017-07-31 12:57] VITALS: BMI 21.4
[2017-07-31 13:36] VITALS: RESP 18; O2SAT 97
--- NOTE | 2017-07-31 14:35 | C.PDOC ---
History Of Present Illness 81 y/o female with a hx of diabetes and ESRD, was at hemodialysis today and started c/o right arm pain where the needle inserted in her graft and epigastric pain associated with diarrhea. Patients daughter was called and she reports that the patient has been having diarrhea and was told to be evaluated in the ER. Patient now reports no arm pain or epigastric pain. Patient notes wanting to go home at this time due to the diarrhea. Denies fever, chills, nausea, or vomiting. No headache. Time Seen by Provider: 07/31/17 13:40 Chief Complaint (Nursing): Abdominal Pain History Per: Patient History/Exam Limitations: no limitations Onset/Duration Of Symptoms: Hrs Current Symptoms Are (Timing): Still Present Severity: Mild Location Of Pain/Discomfort: Epigastric Associated Symptoms: Diarrhea. denies: Fever, Chills Recent travel outside of the [place]: No Additional History Per: Patient Past Medical History Reviewed: Historical Data, Nursing Documentation, Vital Signs Vital Signs: Last Vital Signs Temp 97.3 F L 07/31/17 15:06 Pulse 75 07/31/17 15:06 Resp 18 07/31/17 15:06 BP 163/79 H 07/31/17 15:06 Pulse Ox 97 07/31/17 15:06 - Medical History PMH: Anxiety, Arthritis, Asthma, Bronchitis, Cardia Arrhythmia, CHF, COPD, Dementia, Depression, Diabetes (type 2), Emphysema, Fractures, HTN, Hypercholesterolemia, Migraine, End Stage Renal Disease (dialysis M,W,F), Chronic Kidney Disease, TIA Denies: HIV - [facility] Procedures (07/12/17) ASSISTANCE WITH RESPIRATORY VENTILATION, 24-96 HRS, CPAP (11/01/16) INSERTION OF INFUSION DEV INTO INF VENA CAVA, PERC APPROACH (10/06/15) PERFORMANCE OF URINARY FILTRATION, MULTIPLE (12/24/16) PERFORMANCE OF URINARY FILTRATION, SINGLE (11/01/16) Family History: States: Unknown Family Hx - Social History Hx Tobacco Use: No Hx Alcohol Use: No Hx Substance Use: No - Immunization History Hx Tetanus Toxoid Vaccination: Yes Hx Influenza Vaccination: Yes (06/2015) Hx Pneumococcal Vaccination: Yes (2014) Review Of Systems Except As Marked, All Systems Reviewed And Found Negative. Constitutional: Negative for: Fever, Chills Gastrointestinal: Positive for: Abdominal Pain, Diarrhea. Negative for: Nausea , Vomiting Musculoskeletal: Positive for: Arm Pain (Right arm pain during dialysis) Neurological: Negative for: Headache Physical Exam - Physical Exam Appears: Non-toxic, No Acute Distress Skin: Warm, Dry Head: Atraumatic, Normacephalic Eye(s): bilateral: Normal Inspection Ear(s): Bilateral: Normal Oral Mucosa: Moist Throat: Normal, No Erythema Chest: Symmetrical Cardiovascular: Rhythm Regular, No Murmur Respiratory: Normal Breath Sounds, No Rales, No Rhonchi, No Wheezing Gastrointestinal/Abdominal: Soft, No Tenderness Extremity: Normal ROM, Capillary Refill (<2secs), Other (Graft in the right arm , wrapped no bleeding) Neurological/Psych: Oriented x3 (But forgetful) ED Course And Treatment O2 Sat by Pulse Oximetry: 97 (RA) Pulse Ox Interpretation: Normal Medical Decision Making Medical Decision Making: Patient denies any pain to the abdomen or right arm at this time and wants to go home. Patient's daughter was called and will pick patient up. Disposition - Disposition Disposition: HOME/ ROUTINE Disposition Time: 16:28 Condition: STABLE Instructions: Acute Diarrhea (ED) Forms: Gen Discharge Inst Estonian, [facility] (Estonian) - POA Present On Arrival: None - Clinical Impression Clinical Impression: Diarrhea - Scribe Statement The provider has reviewed the documentation as recorded by the Scribe Geovanna [email or web address] All medical record entries made by the Scribe were at my direction and personally dictated by me. I have reviewed the chart and agree that the record accurately reflects my personal performance of the history, physical exam, medical decision making, and the department course for this patient. I have also personally directed, reviewed, and agree with the discharge instructions and disposition.
[2017-07-31 15:07] VITALS: BP 163/79; PULSE 75; TEMP 97.3
== END 2017-07-31 16:40 | disposition home or self-care (01) ==
LOC: C.ER 12:57
DX: R19.7 Diarrhea, unspecified (principal)

== ENCOUNTER 2017-08-26 13:52 | Emergency (ER) | payer MEDICARE, OTHER ==
[2017-08-26 13:53] VITALS: BMI 21.4
[2017-08-26 15:52] LABS: BASO % 0.6 % (0.0-2.0); EOS # 0.1 K/uL (0.0-0.7); EOS % 2.6 % (0.0-4.0); HEMATOCRIT 34.3 % (34.0-47.0); LYMPH # 1.7 K/uL (1.0-4.3); LYMPH % 30.1 % (20.0-40.0); MEAN CELL VOLUME 84.8 fL (81.0-99.0); MEAN CORPUSCULAR HEMOGLOBIN 27.2 pg (27.0-31.0); MEAN CORPUSCULAR HGB CONC 32.1 g/dL (33.0-37.0); MEAN PLATELET VOLUME 9.6 fL (7.2-11.7); MONO # 1.1 K/uL (0.0-0.8); MONO % 19.2 % (0.0-10.0); WHITE BLOOD COUNT 5.6 K/uL (4.8-10.8)
[2017-08-26 16:13] LABS: ALB/GLOB RATIO 1.1 (1.0-2.1); BILIRUBIN,TOTAL 0.6 mg/dL (0.2-1.3); CALCIUM 9.1 mg/dl (8.6-10.4); POTASSIUM 3.9 mmol/L (3.6-5.2); TOTAL PROTEIN 7.7 g/dL (6.3-8.3)
--- NOTE | 2017-08-26 16:18 | C.PDOC ---
History Of Present Illness 81 y/o female presents to ED with complaints of vague chest pain. Patient is on dialysis and reports last dialysis yesterday. Patient has many prior evaluation for chest pain. Patient denies sob, cough, nausea, vomiting or any other complaints at this time. Time Seen by Provider: 08/26/17 14:54 Chief Complaint (Nursing): Chest Pain History Per: Patient History/Exam Limitations: no limitations Onset/Duration Of Symptoms: Days Current Symptoms Are (Timing): Still Present Past Medical History Reviewed: Historical Data, Nursing Documentation, Vital Signs Vital Signs: Last Vital Signs Temp 98.7 F 08/26/17 20:02 Pulse 64 08/26/17 20:02 Resp 18 08/26/17 20:02 BP 165/62 H 08/26/17 20:02 Pulse Ox 97 08/26/17 20:02 - Medical History PMH: Anxiety, Arthritis, Asthma, Bronchitis, Cardia Arrhythmia, CHF, COPD, Dementia, Depression, Diabetes (type 2), Emphysema, Fractures, HTN, Hypercholesterolemia, Migraine, End Stage Renal Disease (dialysis M,W,F), Chronic Kidney Disease, TIA Surgical History: No Surg Hx - [facility] Procedures (07/12/17) ASSISTANCE WITH RESPIRATORY VENTILATION, 24-96 HRS, CPAP (11/01/16) INSERTION OF INFUSION DEV INTO INF VENA CAVA, PERC APPROACH (10/06/15) PERFORMANCE OF URINARY FILTRATION, MULTIPLE (12/24/16) PERFORMANCE OF URINARY FILTRATION, SINGLE (11/01/16) Family History: States: No Known Family Hx - Social History Hx Tobacco Use: No Hx Alcohol Use: No Hx Substance Use: No - Immunization History Hx Tetanus Toxoid Vaccination: Yes Hx Influenza Vaccination: Yes (06/2015) Hx Pneumococcal Vaccination: Yes (2014) Review Of Systems Constitutional: Negative for: Fever, Chills Cardiovascular: Positive for: Chest Pain. Negative for: Palpitations Respiratory: Negative for: Cough, Shortness of Breath Gastrointestinal: Negative for: Nausea, Vomiting Skin: Negative for: Rash Physical Exam - Physical Exam Appears: Non-toxic, Other (Elderly ) Skin: Warm, Dry, No Rash Head: Normacephalic Eye(s): bilateral: Normal Inspection Oral Mucosa: Moist Neck: Normal ROM, Supple Chest: Symmetrical, Other (not positional digital pain to chest) Cardiovascular: Rhythm Regular Respiratory: Normal Breath Sounds, No Rales, No Rhonchi, No Wheezing Gastrointestinal/Abdominal: Soft, No Tenderness, No Guarding, No Rebound Extremity: Normal ROM, No Pedal Edema, Capillary Refill (<2 seconds) Neurological/Psych: Oriented x3, Normal Motor, Normal Sensation ED Course And Treatment - Laboratory Results Result Diagrams: 08/26/17 15:44 08/26/17 15:44 Lab Interpretation: Normal ECG: Interpreted By Me ECG Rhythm: Sinus Rhythm ECG Interpretation: Normal Rate From EC O2 Sat by Pulse Oximetry: 98 (RA) Pulse Ox Interpretation: Normal - Radiology CXR: Interpreted by Me CXR Interpretation: Yes: No Acute Disease Progress Note: EKG, CXR, blood work, and labs were ordered. Patient was given clonidine. Patient was placed on nasal cannula. Patient states she does not want to stay for evaluation Reevaluation Time: 17:44 Reassessment Condition: Improved (BP improved) - Physician Consult Information Outcome Of Conversation: 1800; d/w Dr. Mccracken- PMD- ok to d/c and opt f/u. Medical Decision Making Medical Decision Making: normal exam and w/u. though pt c/o CP which would usually warrant adm/obs, pt adamant she will not stay overnight Many prior cardiac evals without concerning pathology at this time. promises to f/u with PMD Dr. Mccracken this week. Disposition Doctor Will See Patient In The: Office Counseled Patient/Family Regarding: Studies Performed, Diagnosis - Disposition Referrals: Valdez Mccracken MD [Staff Provider] - Disposition: HOME/ ROUTINE Disposition Time: 17:46 Condition: GOOD Additional Instructions: continue your regular daily meds Follow-up with Dr. Mccracken- call to make an appointment. Your evaluation today is NORMAL Instructions: Chest Pain (ED), Hypertension (ED) Forms: [employer] (Congolese) - Clinical Impression Clinical Impression: Chest pain, Uncontrolled hypertension, Anxiety - Scribe Statement The provider has reviewed the documentation as recorded by the Floweribdre Hernandes All medical record entries made by the Scribe were at my direction and personally dictated by me. I have reviewed the chart and agree that the record accurately reflects my personal performance of the history, physical exam, medical decision making, and the department course for this patient. I have also personally directed, reviewed, and agree with the discharge instructions and disposition.
[2017-08-26 16:25] VITALS: RESP 18
[2017-08-26 16:28] LABS: TROPONIN I 0.086 ng/mL (0.00-0.120)
[2017-08-26 20:03] VITALS: BP 165/62; PULSE 64; TEMP 98.7
[2017-08-26 21:46] VITALS: O2SAT 98
--- NOTE | 2017-08-27 08:18 | RAD ---
Chest x-ray single frontal view History: Shortness of breath. Comparison: 07/12/2017 Findings: Persistent vascular stent projecting over the right upper medial dustin thorax. Mild venous congestion. Elevated right hemidiaphragm. Focal consolidative changes in the right infrahilar region. Mild cardiomegaly. Degenerative changes in the spine with paravertebral osteophytes. Impression: Persistent vascular stent projecting over the right upper medial dustin thorax. Mild venous congestion. Elevated right hemidiaphragm. Focal consolidative changes in the right infrahilar region. Mild cardiomegaly.
--- NOTE | 2017-08-27 19:03 | CARD ---
APPROVED REPORT EKG Measurement Heart [id number] NV [id number] [id number] <Conclusion> Normal sinus rhythm Left anterior fascicular block Left ventricular hypertrophy with repolarization abnormality Poor R wave progression. Abnormal ECG
== END 2017-08-26 20:02 | disposition home or self-care (01) ==
LOC: C.ER 13:52
DX: R07.9 Chest pain, unspecified (principal); I10 Essential (primary) hypertension; F41.9 Anxiety disorder, unspecified

== ENCOUNTER 2017-10-08 19:07 | Inpatient (IN) | payer MEDICARE, OTHER ==
[2017-10-08 19:07] VITALS: BMI 21.4
--- NOTE | 2017-10-08 19:25 | C.PDOC ---
History Of Present Illness Patient brought in to the ER by daughter after she was found to be more confused than usual. As per daughter, patient is on dialysis, Mondays, Wednesdays, and Fridays; and she has a Hx of dementia. Patient was found to have a high blood sugar reading. Further Hx could not be obtained from patient. Time Seen by Provider: 10/08/17 19:24 Chief Complaint (Nursing): Altered Mental Status History Per: Family History/Exam Limitations: Clinical Condition Onset/Duration Of Symptoms: Hrs Onset Of Symptoms: Cannot Confirm Onset Current Symptoms Are (Timing): Still Present Usual Baseline: Unknown Exacerbating Factor(s): Unknown Severity: Moderate Pain Scale Rating Of: 4 Recent travel outside of the [place]: No Past Medical History Reviewed: Historical Data, Nursing Documentation, Vital Signs Vital Signs: Last Vital Signs Temp 98.6 F 10/08/17 19:15 Pulse 83 10/08/17 20:49 Resp 17 10/08/17 20:49 BP 200/75 H 10/08/17 20:49 Pulse Ox 94 L 10/08/17 21:33 - Medical History PMH: Anxiety, Arthritis, Asthma, Bronchitis, Cardia Arrhythmia, CHF, COPD, Dementia, Depression, Diabetes (type 2), Emphysema, Fractures, HTN, Hypercholesterolemia, Migraine, End Stage Renal Disease (dialysis M,W,F), Chronic Kidney Disease, TIA - [facility] Procedures (07/12/17) ASSISTANCE WITH RESPIRATORY VENTILATION, 24-96 HRS, CPAP (11/01/16) INSERTION OF INFUSION DEV INTO INF VENA CAVA, PERC APPROACH (10/06/15) PERFORMANCE OF URINARY FILTRATION, MULTIPLE (12/24/16) PERFORMANCE OF URINARY FILTRATION, SINGLE (11/01/16) Family History: States: Unknown Family Hx - Social History Hx Tobacco Use: No Hx Alcohol Use: No Hx Substance Use: No - Immunization History Hx Tetanus Toxoid Vaccination: Yes Hx Influenza Vaccination: Yes (06/2015) Hx Pneumococcal Vaccination: Yes (2014) Review Of Systems Review Of Systems: ROS cannot be obtained secondary to pt's inabilty to answer questions. Physical Exam - Physical Exam Appears: Other (Awake, Alert) Skin: Warm, Dry Head: Normacephalic Oral Mucosa: Moist Teeth: Edentulous Chest: Symmetrical, No Tenderness Cardiovascular: Rhythm Regular Respiratory: No Rales, No Rhonchi, No Wheezing Gastrointestinal/Abdominal: Soft, No Tenderness Extremity: Other (Right forearm graft with good thrill and bruit, moves all extremities.) Neurological/Psych: Other (Oriented x2) ED Course And Treatment - Laboratory Results Result Diagrams: 10/08/17 19:37 10/08/17 19:37 ECG: Interpreted By Me, Viewed By Me ECG Rhythm: Sinus Rhythm (85), Nonspecific Changes O2 Sat by Pulse Oximetry: 94 Pulse Ox Interpretation: Normal - Radiology CXR: Interpreted by Me, Viewed By Me Progress Note: CT head, blood work, EKG, CXR, and urinalysis ordered. Critical Care Time - Critical Care Note Total Time (in mins): 30 Documented critical care: time excludes all time spent performing seperately billable procedures. Disposition Discussed With Dr.: Valdez Mccracken Comment: accepted the pt on his service and took over the care at 9:32PM Doctor Will See Patient In The: Hospital Counseled Patient/Family Regarding: Studies Performed, Diagnosis - Disposition Disposition: HOSPITALIZED Disposition Time: 19:24 Condition: FAIR Forms: [employer] (Tajik) - POA Present On Arrival: Poor Glycemic Control - Clinical Impression Clinical Impression: Chronic renal failure, Diabetes mellitus, Hyperosmolar non-ketotic state in patient with type 2 diabetes mellitus - Scribe Statement The provider has reviewed the documentation as recorded by the Scribe Sudarshan Diaz All medical record entries made by the Scribe were at my direction and personally dictated by me. I have reviewed the chart and agree that the record accurately reflects my personal performance of the history, physical exam, medical decision making, and the department course for this patient. I have also personally directed, reviewed, and agree with the discharge instructions and disposition. Decision To Admit - Pt Status Changed To: Hospital Disposition Of: Inpatient - Admit Certification Admit to Inpatient:: After my assessment, the patient will require hospitalization for at least two midnights. This is because of the severity of symptoms shown, intensity of services needed, and/or the medical risk in this patient being treated as an outpatient. - InPatient: Physician Admission Certification:: After my assessment, the patient will require hospitalization for at least two midnights. This is because of the severity of symptoms shown, intensity of services needed, and/or the medical risk in this patient being treated as an outpatient. - . Bed Request Type: Regular Admitting Physician: Valdez Mccracken Patient Diagnosis: Chronic renal failure, Diabetes mellitus, Hyperosmolar non-ketotic state in patient with type 2 diabetes mellitus
[2017-10-08 19:46] LABS: ARTERIAL BLOOD GAS HCO3 21.5 mmol/L (21-28); ARTERIAL BLOOD GAS O2 SAT 96.6 % (95-98); ARTERIAL BLOOD GAS PCO2 38 mm/Hg (35-45); ARTERIAL BLOOD GAS PH 7.35 (7.35-7.45); ARTERIAL BLOOD GAS PO2 69 mm/Hg (80-100); ARTERIAL BLOOD GAS TCO2 22.2 mmol/L (22-28)
[2017-10-08 19:50] LABS: EOS % 0.1 % (0.0-4.0); HEMOGLOBIN 12.6 g/dL (11.0-16.0); LYMPH # 0.5 K/uL (1.0-4.3); LYMPH % 11.1 % (20.0-40.0); MEAN CORPUSCULAR HEMOGLOBIN 27.6 pg (27.0-31.0); MEAN PLATELET VOLUME 10.5 fL (7.2-11.7); MONO # 0.4 K/uL (0.0-0.8); MONO % 9.3 % (0.0-10.0); NEUT # 3.5 K/uL (1.8-7.0); NEUT % 78.5 % (50.0-75.0); NRBC % 0.1 % (0.0-2.0); RBC 4.57 Mil/uL (3.80-5.20); RED CELL DISTRIBUTION WIDTH 16.8 % (11.5-14.5); WHITE BLOOD COUNT 4.4 K/uL (4.8-10.8)
[2017-10-08 19:51] LABS: MEAN CELL VOLUME 88.9 fL (81.0-99.0)
[2017-10-08 19:56] LABS: ALB/GLOB RATIO 1.3 (1.0-2.1); ALBUMIN 4.1 g/dL (3.5-5.0); ALT/SGPT 40 U/L (9-52); AST/SGOT 30 U/L (14-36); BLOOD UREA NITROGEN 57 mg/dL (7-17); CALCIUM 8.9 mg/dl (8.6-10.4); GFR AFRICAN-AMERICAN 19; GFR NON-AFRICAN AMERICAN 16; LIPASE 202 U/L (23-300)
[2017-10-08] MEDS ORDERED: (Novolin R) Insulin Human Regular 100 units/ml vial SC ONE ×2 (20:14→22:29)
[2017-10-08] MEDS ORDERED: Sodium Chloride 0.9% 1,000 ML IV ONE (20:14)
[2017-10-08 20:25] LABS: SQUAMOUS EPITHIAL 2 /hpf (0-5); URINE BACTERIA OCC (<OCC); URINE BILIRUBIN NEGATIVE (NEGATIVE); URINE BLOOD 2+ (NEGATIVE); URINE CLARITY Hazy (Clear); URINE COLOR Yellow (YELLOW); URINE GLUCOSE (UA) 3+ mg/dL (Normal); URINE LEUKOCYTE ESTERASE NEG Leu/uL (Negative); URINE NITRATE NEGATIVE (NEGATIVE); URINE PROTEIN 2+ mg/dL (NEGATIVE); URINE UROBILINOGEN NORMAL mg/dL (0.2-1.0)
[2017-10-08] MEDS ORDERED: (Novolin R) Insulin Human Regular 100 units/ml vial ONE ×2 (20:44→22:45)
--- NOTE | 2017-10-08 20:54 | CT ---
EXAM: CT Head Without Intravenous Contrast EXAM DATE/TIME: Exam ordered 10/08/2017 7:25 PM CLINICAL HISTORY: 81 years old, female; Signs and symptoms; Altered mental status/memory loss; Confusion or disorientation; Additional info: Change mental status TECHNIQUE: Axial computed tomography images of the head/brain without intravenous contrast. All CT scans at this facility use one or more dose reduction techniques, viz.: automated exposure control; ma/kV adjustment per patient size (including targeted exams where dose is matched to indication; i.e. head); or iterative reconstruction technique. COMPARISON: CT - HEAD W/O CONTRAST 2016-12-24 11:47 FINDINGS: Brain: Calcification in the basal ganglia is noted bilaterally. There is mild low density noted within the periventricular white matter extending into the piedra radiata and centrum semiovale bilaterally. No hemorrhage. Ventricles: Unremarkable. No ventriculomegaly. Bones/joints: Unremarkable. No acute fracture. Soft tissues: Unremarkable. Sinuses: Unremarkable as visualized. No acute sinusitis. Mastoid air cells: There is partial opacification of the mastoid air cells bilaterally. IMPRESSION: 1. No acute findings. 2. Chronic microvascular ischemic change in the deep white matter. 3. Partial opacification of the mastoid air cells bilaterally which is unchanged from December 2016.
--- NOTE | 2017-10-08 23:35 | CP.PCM.HP ---
History of Present Illness - History of Present Illness History of Present Illness: 81 year old female who was brought to the ER by her daughter after being found in a confused state. Serum Glucose was 1000. Patient was given insulin and IV fluids. Ms Prater is on dialysis 3 times a week. Past history includes diabetes mellitus, renal insufficiency, ASHD, and phlebitis Present on Admission - Present on Admission Any Indicators Present on Admission: No History of DVT/PE: No History of Uncontrolled Diabetes: Yes Urinary Catheter: No Decubitus Ulcer Present: No History Surgical Site Infection Following: None Review of Systems - Review of Systems Systems not reviewed;Unavailable: Altered Mental Status - Constitutional Constitutional: Fatigue - EENT Eyes: Blurred Vision Nose/Mouth/Throat: Dry Mouth - Gastrointestinal Gastrointestinal: Constipation - Genitourinary Genitourinary: Urinary Frequency - Reproductive: Female Reproductive:Female: Post Menopausal - Musculoskeletal Musculoskeletal: Arthralgias - Integumentary Integumentary: Dry Skin - Neurological Neurological: Numbness - Psychiatric Psychiatric: Depression Past Patient History - Infectious Disease Hx of Infectious Diseases: None - Tetanus Immunizations Tetanus Immunization: Unknown, Up to Date - Past Medical History & Family History Past Medical History?: Yes - Past Social History Smoking Status: Never Smoked Chewing Tobacco Use: No Cigar Use: No Alcohol: None Drugs: Denies Home Situation {Lives}: Alone - CARDIAC Hx Cardia Arrhythmia: Yes Hx Congestive Heart Failure: Yes Hx Hypercholesterolemia: Yes Hx Hypertension: Yes - PULMONARY Hx Asthma: Yes Hx Bronchitis: Yes Hx Chronic Obstructive Pulmonary Disease (COPD): Yes Hx Emphysema: Yes - NEUROLOGICAL Hx Dementia: Yes Hx Migraine: Yes Hx Transient Ischemic Attacks (TIA): Yes - HEENT Hx HEENT Problems: Yes Hx Blind: Yes (Left eye.) - RENAL Hx Chronic Kidney Disease: Yes - ENDOCRINE/METABOLIC Hx Endocrine Disorders: Yes Hx Diabetes Mellitus Type 2: Yes - HEMATOLOGICAL/ONCOLOGICAL Hx Human Immunodeficiency Virus (HIV): No - INTEGUMENTARY Hx Dermatological Problems: Yes Hx Cellulitis: Yes Hx Eczema: Yes - MUSCULOSKELETAL/RHEUMATOLOGICAL Hx Arthritis: Yes Hx Fractures: Yes - GASTROINTESTINAL Hx Gastrointestinal Disorders: Yes Hx Gastroesophageal Reflux: Yes Hx Hemorrhoids: Yes - GENITOURINARY/GYNECOLOGICAL Hx Genitourinary Disorders: Yes Hx Urinary Tract Infection: Yes - PSYCHIATRIC Hx Anxiety: Yes Hx Depression: Yes Hx Substance Use: No - SURGICAL HISTORY Hx Surgeries: Yes Hx Arteriovenous Shunt: Yes (right arm) - ANESTHESIA Hx Anesthesia: Yes Hx Anesthesia Reactions: No Meds Allergies/Adverse Reactions: Allergies Allergy/AdvReac Type Severity Reaction Status Date / Time No Known Allergies Allergy Verified 08/26/17 13:57 Physical Exam - Constitutional Appears: Chronically Ill - Head Exam Head Exam: NORMOCEPHALIC - Eye Exam Eye Exam: Normal appearance Pupil Exam: NORMAL ACCOMODATION - Neck Exam Neck exam: Positive for: Normal Inspection - Respiratory Exam Respiratory Exam: Decreased Breath Sounds - Cardiovascular Exam Cardiovascular Exam: Irregular Rhythm - GI/Abdominal Exam GI & Abdominal Exam: Normal Bowel Sounds - Rectal Exam Rectal Exam: Deferred - Exam External exam: NORMAL EXTERNAL EXAM - Extremities Exam Extremities exam: Positive for: pedal pulses present - Back Exam Back exam: NORMAL INSPECTION - Neurological Exam Neurological exam: Altered - Psychiatric Exam Psychiatric exam: Depressed - Skin Skin Exam: Dry Results - Vital Signs Recent Vital Signs: Last Vital Signs Temp 98.6 F 10/08/17 19:15 Pulse 85 10/08/17 22:48 Resp 14 10/08/17 22:48 BP 159/72 H 10/08/17 22:48 Pulse Ox 98 10/08/17 22:48 - Labs Result Diagrams: 10/08/17 19:37 10/08/17 19:37 Labs: Laboratory Results - last 24 hr 10/08/17 10/08/17 10/08/17 19:37 19:37 19:41 WBC 4.4 L RBC 4.57 Hgb 12.6 Hct 40.7 MCV 88.9 D MCH 27.6 MCHC 31.0 L RDW 16.8 H Plt Count 214 MPV 10.5 Neut % (Auto) 78.5 H Lymph % (Auto) 11.1 L [place] % (Auto) 9.3 Eos % (Auto) 0.1 Baso % (Auto) 1.0 Neut # 3.5 Lymph # 0.5 L [place] # 0.4 Eos # 0.0 Baso # 0.0 Puncture Site Rba pCO2 38 pO2 69 L HCO3 21.5 ABG pH 7.35 ABG Total CO2 22.2 ABG O2 Saturation 96.6 ABG Base Excess -4.2 L Mohinder Test Na ABG Potassium 5.4 H A-a O2 Difference 33.0 Respiratory Index 0.5 Glucose > 750 H* D Lactate 2.5 H Liter Flow 0 FiO2 21.0 Crit Value Called To Ashely retana rn Crit Value Called By Natalia Crit Value Read Back Y Blood Gas Notified Time 1945 Sodium 129 L 137.0 Potassium 5.5 H Chloride 92 L 97.0 L Carbon Dioxide 22 Anion Gap 21 H BUN 57 H Creatinine 2.9 H Est GFR ( Amer) 19 Est GFR (Non-Af Amer) 16 POC Glucose (mg/dL) Random Glucose 1034 H* Calcium 8.9 Total Bilirubin 0.6 AST 30 ALT 40 Alkaline Phosphatase 290 H D Total Protein 7.2 Albumin 4.1 Globulin 3.1 Albumin/Globulin Ratio 1.3 Lipase 202 Arterial Blood Potassium 5.4 H Urine Color Urine Clarity Urine pH Ur Specific [place] Urine Protein Urine Glucose (UA) Urine Ketones Urine Blood Urine Nitrate Urine Bilirubin Urine Urobilinogen Ur Leukocyte Esterase Urine WBC (Auto) Urine RBC (Auto) Ur Squamous Epith Cells Urine Bacteria Serum Ketones Negative 10/08/17 10/08/17 10/08/17 20:00 21:20 22:22 WBC RBC Hgb Hct MCV MCH MCHC RDW Plt Count MPV Neut % (Auto) Lymph % (Auto) [place] % (Auto) Eos % (Auto) Baso % (Auto) Neut # Lymph # [place] # Eos # Baso # Puncture Site pCO2 pO2 HCO3 ABG pH ABG Total CO2 ABG O2 Saturation ABG Base Excess Mohinder Test ABG Potassium A-a O2 Difference Respiratory Index Glucose Lactate Liter Flow FiO2 Crit Value Called To Crit Value Called By Crit Value Read Back Blood Gas Notified Time Sodium Potassium Chloride Carbon Dioxide Anion Gap BUN Creatinine Est GFR ( Amer) Est GFR (Non-Af Amer) POC Glucose (mg/dL) > 500 H* > 500 H* Random Glucose Calcium Total Bilirubin AST ALT Alkaline Phosphatase Total Protein Albumin Globulin Albumin/Globulin Ratio Lipase Arterial Blood Potassium Urine Color Yellow Urine Clarity Hazy Urine pH 5.0 Ur Specific [place] 1.018 Urine Protein 2+ H Urine Glucose (UA) 3+ H Urine Ketones Trace Urine Blood 2+ H Urine Nitrate Negative Urine Bilirubin Negative Urine Urobilinogen Normal Ur Leukocyte Esterase Neg Urine WBC (Auto) 8 H Urine RBC (Auto) 42 H Ur Squamous Epith Cells 2 Urine Bacteria Occ H Serum Ketones Assessment & Plan (1) Hyperosmolar non-ketotic state in patient with type 2 diabetes mellitus Status: Acute (2) [id number] renal failure Status: Acute Priority: High (3) Altered awareness, transient Status: Acute
[2017-10-08 23:43] LABS: ALB/GLOB RATIO 1.2 (1.0-2.1); ALBUMIN 3.6 g/dL (3.5-5.0); ALT/SGPT 34 U/L (9-52); AST/SGOT 24 U/L (14-36); BLOOD UREA NITROGEN 53 mg/dL (7-17); CALCIUM 8.6 mg/dl (8.6-10.4); GFR AFRICAN-AMERICAN 19; GFR NON-AFRICAN AMERICAN 16; LIPASE 181 U/L (23-300)
[2017-10-08] MEDS ORDERED: (Novolin R) Insulin Human Regular 100 units/ml vial IV STA (23:44)
[2017-10-09] MEDS ORDERED: (Novolin R) Insulin Human Regular 100 units/ml vial ONE (00:19)
[2017-10-09] MEDS: Albuterol 0.083% Inhal Sol (2.5 mg/3 mL) UD INH SCH ×4 (02:25→19:48)
[2017-10-09] MEDS ORDERED: Albuterol 0.083% Inhal Sol (2.5 mg/3 mL) UD ONE ×2 (02:28→08:17)
[2017-10-09] MEDS ORDERED: Dextrose 50% SYRINGE Inj (50 ml) IV STA (05:47)
[2017-10-09] MEDS ORDERED: Dextrose 50% VIAL Inj (50 ml) IV ONE (05:49)
--- NOTE | 2017-10-09 10:09 | RAD ---
PROCEDURE: CHEST RADIOGRAPH, 1 VIEW HISTORY: Diabetic COMPARISON: 08/26/2017 FINDINGS: LUNGS: Clear. PLEURA: No pneumothorax or pleural fluid seen. CARDIOVASCULAR: Normal. OSSEOUS STRUCTURES: No significant abnormalities. VISUALIZED UPPER ABDOMEN: Normal. OTHER FINDINGS: None. IMPRESSION: No active disease.
--- NOTE | 2017-10-09 10:10 | CP.PCM.CON ---
History of Present Illness - History of Present Illness History of Present Illness: REASONS FOR CONSULT : ESRD ON HD M W F ANEMIA OF CKD ,, H/H STABLE ELECTROLYTES ABN HYPEROSMOLAR NON - [place] STATE .. WITH GLU > 1000 ALL EMR REVIEWED .. PT WAS SEEN AND EXAMINED .. STAT HD ORDERS GIVEN TO THE HD - RN PT HAS MMP AND FREQEUNT ADMISIONS TO THE History Of Present Illness Patient brought in to the ER by daughter after she was found to be more confused than usual. As per daughter, patient is on dialysis, Mondays, Wednesdays, and Fridays; and she has a Hx of dementia. Patient was found to have a high blood sugar reading. Further Hx could not be obtained from patient. Time Seen by Provider: 10/08/17 19:24 Chief Complaint (Nursing): Altered Mental Status History Per: Family History/Exam Limitations: Clinical Condition Onset/Duration Of Symptoms: Hrs Onset Of Symptoms: Cannot Confirm Onset Current Symptoms Are (Timing): Still Present Usual Baseline: Unknown Exacerbating Factor(s): Unknown Severity: Moderate Pain Scale Rating Of: 4 Recent travel outside of the [place]: No Past Medical History Reviewed: Historical Data, Nursing Documentation, Vital Signs Vital Signs: Last Vital Signs Temp 98.6 F 10/08/17 19:15 Pulse 83 10/08/17 20:49 Resp 17 10/08/17 20:49 BP 200/75 H 10/08/17 20:49 Pulse Ox 94 L 10/08/17 21:33 - Medical History PMH: Anxiety, Arthritis, Asthma, Bronchitis, Cardia Arrhythmia, CHF, COPD, Dementia, Depression, Diabetes (type 2), Emphysema, Fractures, HTN, Hypercholesterolemia, Migraine, End Stage Renal Disease (dialysis M,W,F), Chronic Kidney Disease, TIA - [facility] Procedures (07/12/17) ASSISTANCE WITH RESPIRATORY VENTILATION, 24-96 HRS, CPAP (11/01/16) INSERTION OF INFUSION DEV INTO INF VENA CAVA, PERC APPROACH (10/06/15) PERFORMANCE OF URINARY FILTRATION, MULTIPLE (12/24/16) PERFORMANCE OF URINARY FILTRATION, SINGLE (11/01/16) Family History: States: Unknown Family Hx - Social History Hx Tobacco Use: No Hx Alcohol Use: No Hx Substance Use: No - Immunization History Hx Tetanus Toxoid Vaccination: Yes Hx Influenza Vaccination: Yes (06/2015) Hx Pneumococcal Vaccination: Yes (2015) Review Of Systems Review Of Systems: ROS cannot be obtained secondary to pt's inabilty to answer questions. Past Patient History - Infectious Disease Hx of Infectious Diseases: None - Tetanus Immunizations Tetanus Immunization: Unknown, Up to Date - Past Medical History & Family History Past Medical History?: Yes - Past Social History Smoking Status: Never Smoked Chewing Tobacco Use: No Cigar Use: No Alcohol: None Drugs: Denies Home Situation {Lives}: Alone - CARDIAC Hx Cardia Arrhythmia: Yes Hx Congestive Heart Failure: Yes Hx Hypercholesterolemia: Yes Hx Hypertension: Yes - PULMONARY Hx Asthma: Yes Hx Bronchitis: Yes Hx Chronic Obstructive Pulmonary Disease (COPD): Yes Hx Emphysema: Yes - NEUROLOGICAL Hx Dementia: Yes Hx Migraine: Yes Hx Transient Ischemic Attacks (TIA): Yes - HEENT Hx HEENT Problems: Yes Hx Blind: Yes (Left eye.) - RENAL Hx Chronic Kidney Disease: Yes - ENDOCRINE/METABOLIC Hx Endocrine Disorders: Yes Hx Diabetes Mellitus Type 2: Yes - HEMATOLOGICAL/ONCOLOGICAL Hx Human Immunodeficiency Virus (HIV): No - INTEGUMENTARY Hx Dermatological Problems: Yes Hx Cellulitis: Yes Hx Eczema: Yes - MUSCULOSKELETAL/RHEUMATOLOGICAL Hx Arthritis: Yes Hx Fractures: Yes - GASTROINTESTINAL Hx Gastrointestinal Disorders: Yes Hx Gastroesophageal Reflux: Yes Hx Hemorrhoids: Yes - GENITOURINARY/GYNECOLOGICAL Hx Genitourinary Disorders: Yes Hx Urinary Tract Infection: Yes - PSYCHIATRIC Hx Anxiety: Yes Hx Depression: Yes Hx Substance Use: No - SURGICAL HISTORY Hx Surgeries: Yes Hx Arteriovenous Shunt: Yes (right arm) - ANESTHESIA Hx Anesthesia: Yes Hx Anesthesia Reactions: No Meds Allergies/Adverse Reactions: Allergies Allergy/AdvReac Type Severity Reaction Status Date / Time No Known Allergies Allergy Verified 08/26/17 13:57 - Medications Medications: Current Medications Albuterol Sulfate (Albuterol 0.083% Inhal Luisa (2.5 Mg/3 Ml) Ud) 2.5 mg INH RQ6 [facility] Last Admin: 10/09/17 08:29 Dose: 2.5 mg Ascorbic Acid (Vitamin C 500 Mg Tab) 500 mg PO DAILY [facility] Atenolol (Tenormin) 50 mg PO DAILY [facility] Clopidogrel Bisulfate (Plavix) 75 mg PO DAILY [facility] Ergocalciferol (Drisdol 50,000 Intl Units Cap) 1 cap PO Q7D [facility] Hydralazine HCl (Apresoline) 25 mg PO BID [facility] Insulin Glargine (Lantus) 26 unit SC HS [facility] Montelukast Sodium (Singulair) 10 mg PO DAILY [facility] Rosuvastatin Calcium (Crestor) 5 mg PO HS [facility] Sevelamer Carbonate (Renvela) 800 mg PO TIDCC [facility] Vitamin B Complex/Vit C/Folic Acid (Nephro-Marina) 1 tab PO 0800 [facility] Results - Vital Signs Recent Vital Signs: Last Vital Signs Temp 98 F 10/09/17 08:16 Pulse 88 10/09/17 08:16 Resp 18 10/09/17 08:16 BP 159/97 H 10/09/17 08:16 Pulse Ox 100 10/09/17 08:16 - Labs Result Diagrams: 10/08/17 19:37 10/08/17 23:27 Labs: Laboratory Results - last 24 hr 10/08/17 10/08/17 10/08/17 19:37 19:37 19:41 WBC 4.4 L RBC 4.57 Hgb 12.6 Hct 40.7 MCV 88.9 D MCH 27.6 MCHC 31.0 L RDW 16.8 H Plt Count 214 MPV 10.5 Neut % (Auto) 78.5 H Lymph % (Auto) 11.1 L [place] % (Auto) 9.3 Eos % (Auto) 0.1 Baso % (Auto) 1.0 Neut # 3.5 Lymph # 0.5 L [place] # 0.4 Eos # 0.0 Baso # 0.0 Puncture Site Rba pCO2 38 pO2 69 L HCO3 21.5 ABG pH 7.35 ABG Total CO2 22.2 ABG O2 Saturation 96.6 ABG Base Excess -4.2 L Mohinder Test Na ABG Potassium 5.4 H A-a O2 Difference 33.0 Respiratory Index 0.5 Glucose > 750 H* D Lactate 2.5 H Liter Flow 0 FiO2 21.0 Crit Value Called To Ashely retana rn Crit Value Called By Natalia Crit Value Read Back Y Blood Gas Notified Time 1945 Sodium 129 L 137.0 Potassium 5.5 H Chloride 92 L 97.0 L Carbon Dioxide 22 Anion Gap 21 H BUN 57 H Creatinine 2.9 H Est GFR ( Amer) 19 Est GFR (Non-Af Amer) 16 POC Glucose (mg/dL) Random Glucose 1034 H* Calcium 8.9 Total Bilirubin 0.6 AST 30 ALT 40 Alkaline Phosphatase 290 H D Total Protein 7.2 Albumin 4.1 Globulin 3.1 Albumin/Globulin Ratio 1.3 Lipase 202 Arterial Blood Potassium 5.4 H Urine Color Urine Clarity Urine pH Ur Specific [place] Urine Protein Urine Glucose (UA) Urine Ketones Urine Blood Urine Nitrate Urine Bilirubin Urine Urobilinogen Ur Leukocyte Esterase Urine WBC (Auto) Urine RBC (Auto) Ur Squamous Epith Cells Urine Bacteria Serum Ketones Negative 10/08/17 10/08/17 10/08/17 20:00 21:20 22:22 WBC RBC Hgb Hct MCV MCH MCHC RDW Plt Count MPV Neut % (Auto) Lymph % (Auto) [place] % (Auto) Eos % (Auto) Baso % (Auto) Neut # Lymph # [place] # Eos # Baso # Puncture Site pCO2 pO2 HCO3 ABG pH ABG Total CO2 ABG O2 Saturation ABG Base Excess Mohinder Test ABG Potassium A-a O2 Difference Respiratory Index Glucose Lactate Liter Flow FiO2 Crit Value Called To Crit Value Called By Crit Value Read Back Blood Gas Notified Time Sodium Potassium Chloride Carbon Dioxide Anion Gap BUN Creatinine Est GFR ( Amer) Est GFR (Non-Af Amer) POC Glucose (mg/dL) > 500 H* > 500 H* Random Glucose Calcium Total Bilirubin AST ALT Alkaline Phosphatase Total Protein Albumin Globulin Albumin/Globulin Ratio Lipase Arterial Blood Potassium Urine Color Yellow Urine Clarity Hazy Urine pH 5.0 Ur Specific [place] 1.018 Urine Protein 2+ H Urine Glucose (UA) 3+ H Urine Ketones Trace Urine Blood 2+ H Urine Nitrate Negative Urine Bilirubin Negative Urine Urobilinogen Normal Ur Leukocyte Esterase Neg Urine WBC (Auto) 8 H Urine RBC (Auto) 42 H Ur Squamous Epith Cells 2 Urine Bacteria Occ H Serum Ketones 10/08/17 10/09/17 10/09/17 23:27 01:12 05:43 WBC RBC Hgb Hct MCV MCH MCHC RDW Plt Count MPV Neut % (Auto) Lymph % (Auto) [place] % (Auto) Eos % (Auto) Baso % (Auto) Neut # Lymph # [place] # Eos # Baso # Puncture Site pCO2 pO2 HCO3 ABG pH ABG Total CO2 ABG O2 Saturation ABG Base Excess Mohinder Test ABG Potassium A-a O2 Difference Respiratory Index Glucose Lactate Liter Flow FiO2 Crit Value Called To Crit Value Called By Crit Value Read Back Blood Gas Notified Time Sodium 136 Potassium 4.5 Chloride 101 Carbon Dioxide 23 Anion Gap 17 BUN 53 H Creatinine 2.9 H Est GFR ( Amer) 19 Est GFR (Non-Af Amer) 16 POC Glucose (mg/dL) 370 H 44 L Random Glucose 577 H* D Calcium 8.6 Total Bilirubin 0.3 AST 24 ALT 34 Alkaline Phosphatase 217 H D Total Protein 6.5 Albumin 3.6 Globulin 2.9 Albumin/Globulin Ratio 1.2 Lipase 181 Arterial Blood Potassium Urine Color Urine Clarity Urine pH Ur Specific [place] Urine Protein Urine Glucose (UA) Urine Ketones Urine Blood Urine Nitrate Urine Bilirubin Urine Urobilinogen Ur Leukocyte Esterase Urine WBC (Auto) Urine RBC (Auto) Ur Squamous Epith Cells Urine Bacteria Serum Ketones Negative 10/09/17 10/09/17 06:19 07:02 WBC RBC Hgb Hct MCV MCH MCHC RDW Plt Count MPV Neut % (Auto) Lymph % (Auto) [place] % (Auto) Eos % (Auto) Baso % (Auto) Neut # Lymph # [place] # Eos # Baso # Puncture Site pCO2 pO2 HCO3 ABG pH ABG Total CO2 ABG O2 Saturation ABG Base Excess Mohinder Test ABG Potassium A-a O2 Difference Respiratory Index Glucose Lactate Liter Flow FiO2 Crit Value Called To Crit Value Called By Crit Value Read Back Blood Gas Notified Time Sodium Potassium Chloride Carbon Dioxide Anion Gap BUN Creatinine Est GFR ( Amer) Est GFR (Non-Af Amer) POC Glucose (mg/dL) 187 H 130 H Random Glucose Calcium Total Bilirubin AST ALT Alkaline Phosphatase Total Protein Albumin Globulin Albumin/Globulin Ratio Lipase Arterial Blood Potassium Urine Color Urine Clarity Urine pH Ur Specific [place] Urine Protein Urine Glucose (UA) Urine Ketones Urine Blood Urine Nitrate Urine Bilirubin Urine Urobilinogen Ur Leukocyte Esterase Urine WBC (Auto) Urine RBC (Auto) Ur Squamous Epith Cells Urine Bacteria Serum Ketones Assessment & Plan - Assessment and Plan (Free Text) Assessment: ESRD .. FOR HD MEDRANO NOW HYPEROSMOLAR NON - [place] .. HD NOW WILL HELP ELECTROLYTES ABN .. HYPERKALEMIA .. HD RIGHT NOW ANEMIA OF CKD .. H/H STABLE LOOK FOR UNDERLYING CAUSE FOR HYPEROSMOLAR NON [place] STATE MMP P : STAT HD PRDERS WRITTEN INSULIN MANAGEMENT FO DM WILL KEEP CLOSE EYE - Date & Time Date: 10/09/17 Time: 10:00
[2017-10-09] MEDS ORDERED: Ergocalciferol 50,000 Intl Units Cap PO SCH (10:15)
[2017-10-09] MEDS: (Novolog) Insulin Aspart, Recombinant 100 u/ml 10 ml vial SC SCH ×3 (17:04→21:40)
[2017-10-09] MEDS ORDERED: (Lantus) Insulin Glargine, Recombinant SC SCH ×2 (22:00)
--- NOTE | 2017-10-09 23:04 | CP.PCM.PN ---
Subjective - Date & Time of Evaluation Date of Evaluation: 10/09/17 Time of Evaluation: 13:30 - Subjective Subjective: Patient still confused. Patient having dialysis. Blood sugar down in the 200- [address] Diaz evaluating renal status. Objective - Vital Signs/Intake and Output Vital Signs (last 24 hours): Temp Pulse Resp BP Pulse Ox 97.8 F 68 20 158/80 H 100 10/09/17 15:40 10/09/17 19:51 10/09/17 15:40 10/09/17 15:40 10/09/17 15:40 - Medications Medications: Current Medications Albuterol Sulfate (Albuterol 0.083% Inhal Luisa (2.5 Mg/3 Ml) Ud) 2.5 mg INH RQ6 [facility] Last Admin: 10/09/17 19:48 Dose: 2.5 mg Ascorbic Acid (Vitamin C 500 Mg Tab) 500 mg PO DAILY [facility] Atenolol (Tenormin) 50 mg PO DAILY [facility] Last Admin: 10/09/17 10:25 Dose: 50 mg Clopidogrel Bisulfate (Plavix) 75 mg PO DAILY [facility] Last Admin: 10/09/17 10:25 Dose: 75 mg Ergocalciferol (Drisdol 50,000 Intl Units Cap) 1 cap PO Q7D [facility] Last Admin: 10/09/17 17:59 Dose: 1 cap Hydralazine HCl (Apresoline) 25 mg PO BID [facility] Last Admin: 10/09/17 17:59 Dose: 25 mg Insulin Aspart (Novolog) 6 unit SC AC [facility] Last Admin: 10/09/17 17:59 Dose: 6 unit Insulin Aspart (Novolog) 0 unit SC ACHS [facility] PRN Reason: Protocol Last Admin: 10/09/17 21:40 Dose: Not Given Insulin Glargine (Lantus) 16 unit SC HS [facility] Last Admin: 10/09/17 21:48 Dose: 16 u Montelukast Sodium (Singulair) 10 mg PO DAILY [facility] Last Admin: 10/09/17 10:25 Dose: 10 mg Rosuvastatin Calcium (Crestor) 5 mg PO HS [facility] Last Admin: 10/09/17 21:48 Dose: 5 mg Sevelamer Carbonate (Renvela) 800 mg PO TIDCC [facility] Last Admin: 10/09/17 17:59 Dose: 800 mg Vitamin B Complex/Vit C/Folic Acid (Nephro-Marina) 1 tab PO 0800 [facility] - Labs Labs: 10/08/17 19:37 10/08/17 23:27 - Constitutional Appears: Chronically Ill - Head Exam Head Exam: NORMOCEPHALIC - Eye Exam Eye Exam: Normal appearance Pupil Exam: NORMAL ACCOMODATION - ENT Exam ENT Exam: Normal Exam - Neck Exam Neck Exam: Normal Inspection - Respiratory Exam Respiratory Exam: Decreased Breath Sounds - Cardiovascular Exam Cardiovascular Exam: REGULAR RHYTHM - GI/Abdominal Exam GI & Abdominal Exam: Hyperactive Bowel Sounds - Rectal Exam Rectal Exam: Deferred - Exam External exam: NORMAL EXTERNAL EXAM - Extremities Exam Extremities Exam: Tenderness - Back Exam Back Exam: NORMAL INSPECTION - Neurological Exam Neurological Exam: Altered - Psychiatric Exam Psychiatric exam: Depressed - Skin Skin Exam: Dry Assessment and Plan (1) Hyperosmolar non-ketotic state in patient with type 2 diabetes mellitus Status: Acute (2) [id number] renal failure Status: Acute (3) Altered awareness, transient Status: Acute
[2017-10-10] MEDS: Albuterol 0.083% Inhal Sol (2.5 mg/3 mL) UD INH SCH ×4 (01:28→19:53)
--- NOTE | 2017-10-10 01:42 | CON ---
DATE: ENDOCRINOLOGY CONSULTATION LOCATION: In ER holding and will be transferred to [address] [place] [address]. HISTORY OF PRESENT ILLNESS: This is an 81-year-old female with known history of type 2 insulin requiring diabetes, presenting here with altered mental status and increasing confusion and generalized weakness, and is being referred now for diabetic evaluation because of supervening hyperglycemic accelerations as noted thereof. PAST MEDICAL HISTORY: History of type 2 insulin requiring diabetes, currently on a combination of Lantus given as 26 units at bedtime and NovoLog as 10 units t.i.d. before meals; history of hypertension and dyslipidemia; history of end-stage renal disease and dialysis dependence, with underlying diabetic polyneuropathy and retinopathy. FAMILY HISTORY: Positive for diabetes and hypertension. SOCIAL HISTORY: The patient has a supportive family. No known substance use. REVIEW OF SYSTEMS: Has been noted by the family to have increasing generalized weakness and hypersomnolence, with episodic dizziness and lightheadedness. No chest pains, palpitations, or PND. Her oral intake has been variable with dyspepsia and occasional loose watery diarrhea with marked polyuria and nocturia recently as noted. PHYSICAL EXAMINATION GENERAL: This is an average-built female, in no apparent distress. VITAL SIGNS: Blood pressure of 140/80, pulse of 70 beats per minute and regular, temperature 99, respirations 20. HEENT: Head is normocephalic. Eyes, anicteric with pink conjunctivae. Funduscopy is not possible at this time. Ears, nose, and throat otherwise normal. NECK: Supple. Thyroid gland is normal in size. No carotid bruits or cervical adenopathy. CARDIOPULMONARY: Some adynamic precordium. S1 and S2 is rapid and regular. LUNGS: Clear to auscultation. ABDOMEN: Flat, soft with positive bowel sounds. EXTREMITIES: No peripheral edema. Pulses are +2 bilaterally. LABORATORY DATA: The chemistry showed a BUN of 51, sodium 129, potassium 5.5, chloride 92, CO2 is 22, glucose was 1034 and creatinine 2.9. ASSESSMENT: This is an 81-year-old female with uncontrolled and decompensated type 2 insulin-requiring diabetes presenting here with hyperosmolar hyperglycemic state and dehydration with underlying end-stage renal disease and dialysis dependent. She also has diabetic microvascular complications of retinopathy, polyneuropathy and nephropathy. PLAN: Plan of management as discussed with the patient and the staff. We will start her right away on intensive insulin regimen with the combination of Lantus given as 16 units subcu at bedtime daily to start tonight and we will add NovoLog given as 6 units t.i.d. before meals to start at breakfast time tomorrow morning. We will modify the coverage scale to obviate hypoglycemia and detailed orders have been given. Hemoglobin A1c, chemistries and thyroid studies have been ordered. We will continue the vigorous IV hydration as given. We will follow with you. Bella Gold MD
[2017-10-10 07:34] LABS: BASO % 0.8 % (0.0-2.0); EOS # 0.1 K/uL (0.0-0.7); EOS % 1.2 % (0.0-4.0); HEMOGLOBIN 12.9 g/dL (11.0-16.0); LYMPH # 1.5 K/uL (1.0-4.3); LYMPH % 28.6 % (20.0-40.0); MEAN CORPUSCULAR HEMOGLOBIN 27.9 pg (27.0-31.0); MEAN CORPUSCULAR HGB CONC 32.6 g/dL (33.0-37.0); MEAN PLATELET VOLUME 10.3 fL (7.2-11.7); MONO # 0.7 K/uL (0.0-0.8); MONO % 14.2 % (0.0-10.0); NEUT # 2.9 K/uL (1.8-7.0); NEUT % 55.2 % (50.0-75.0); NRBC % 0.1 % (0.0-2.0); RBC 4.64 Mil/uL (3.80-5.20); RED CELL DISTRIBUTION WIDTH 16.4 % (11.5-14.5); WHITE BLOOD COUNT 5.2 K/uL (4.8-10.8)
[2017-10-10 07:37] LABS: MEAN CELL VOLUME 85.6 fL (81.0-99.0)
[2017-10-10] MEDS: (Novolog) Insulin Aspart, Recombinant 100 u/ml 10 ml vial SC SCH ×6 (07:51→21:44)
[2017-10-10] MEDS: Multivitamin Vitamin B Complex (Nephro-Vite) Tab PO SCH (08:01)
[2017-10-10] MEDS ORDERED: (Novolog) Insulin Aspart, Recombinant 100 u/ml 10 ml vial SC SCH (12:31)
[2017-10-10] MEDS ORDERED: (Novolog) Insulin Aspart, Recombinant 100 u/ml 10 ml vial SC ONE (12:45)
[2017-10-10 13:45] LABS: HEMOGLOBIN 11.8 g/dL (11.0-16.0); MEAN CELL VOLUME 84.7 fL (81.0-99.0); MEAN CORPUSCULAR HEMOGLOBIN 27.8 pg (27.0-31.0); MEAN CORPUSCULAR HGB CONC 32.8 g/dL (33.0-37.0); MEAN PLATELET VOLUME 9.6 fL (7.2-11.7); RBC 4.25 Mil/uL (3.80-5.20); RED CELL DISTRIBUTION WIDTH 15.8 % (11.5-14.5); WHITE BLOOD COUNT 5.4 K/uL (4.8-10.8)
[2017-10-10 14:12] LABS: CALCIUM 8.2 mg/dl (8.6-10.4)
--- NOTE | 2017-10-10 17:16 | CP.PCM.PN ---
Subjective - Date & Time of Evaluation Date of Evaluation: 10/10/17 - Subjective Subjective: SEEN ON RENAL F/U SEEN ON HD FEELS IMPROVED Objective - Vital Signs/Intake and Output Vital Signs (last 24 hours): Temp Pulse Resp BP Pulse Ox 97.9 F 57 L 20 130/62 97 10/10/17 15:55 10/10/17 15:55 10/10/17 15:55 10/10/17 15:55 10/10/17 15:55 Intake and Output: 10/10/17 10/10/17 06:59 18:59 Intake Total 550 Balance 550 - Medications Medications: Current Medications Albuterol Sulfate (Albuterol 0.083% Inhal Luisa (2.5 Mg/3 Ml) Ud) 2.5 mg INH RQ6 [facility] Last Admin: 10/10/17 13:59 Dose: 2.5 mg Ascorbic Acid (Vitamin C 500 Mg Tab) 500 mg PO DAILY [facility] Last Admin: 10/10/17 09:35 Dose: 500 mg Atenolol (Tenormin) 50 mg PO DAILY [facility] Last Admin: 10/10/17 09:34 Dose: 50 mg Clopidogrel Bisulfate (Plavix) 75 mg PO DAILY [facility] Last Admin: 10/10/17 09:34 Dose: 75 mg Ergocalciferol (Drisdol 50,000 Intl Units Cap) 1 cap PO Q7D [facility] Last Admin: 10/09/17 17:59 Dose: 1 cap Heparin Sodium (Porcine) (Heparin) 5,000 units SC Q12 [facility] Last Admin: 10/10/17 11:30 Dose: Not Given Hydralazine HCl (Apresoline) 25 mg PO BID [facility] Last Admin: 10/10/17 17:11 Dose: 25 mg Insulin Aspart (Novolog) 10 unit SC AC [facility] Last Admin: 10/10/17 17:11 Dose: 10 unit Insulin Aspart (Novolog) 0 unit SC ACHS [facility] PRN Reason: Protocol Last Admin: 10/10/17 17:11 Dose: 2 unit Insulin Glargine (Lantus) 20 unit SC HS [facility] Montelukast Sodium (Singulair) 10 mg PO DAILY [facility] Last Admin: 10/10/17 09:33 Dose: 10 mg Rosuvastatin Calcium (Crestor) 5 mg PO HS [facility] Last Admin: 10/09/17 21:48 Dose: 5 mg Sevelamer Carbonate (Renvela) 800 mg PO TIDCC [facility] Last Admin: 10/10/17 17:10 Dose: 800 mg Vitamin B Complex/Vit C/Folic Acid (Nephro-Marina) 1 tab PO 0800 [facility] Last Admin: 10/10/17 08:01 Dose: 1 tab - Labs Labs: 10/10/17 13:37 10/10/17 13:37 PT 11.0 SECONDS (9.7-12.2) 10/10/17 13:37 INR 1.0 10/10/17 13:37 APTT 29 SECONDS (21-34) 10/10/17 13:37 Assessment and Plan - Assessment and Plan (Free Text) Assessment: ESRD ON HD M W F .. TO BE C/O ANEMIA OF CKD .. H/H STABLE ELECTROLYTES ABNORMALITIES .. LOW NA P : C/O CURRENT CARE C/O PRESENT MANAGEMENT
[2017-10-10] MEDS: (Lantus) Insulin Glargine, Recombinant SC SCH (21:53)
--- NOTE | 2017-10-10 23:37 | PN ---
DATE: LOCATION: Room 651. SUBJECTIVE: This is an 81-year-old female with recent uncontrolled type-2 insulin-requiring diabetes, now being followed closely for metabolic management. She continues to have hyperglycemic exacerbations as noted today with glucose level ranging from 165 to 421 and 427 mg/dL. LABORATORY DATA: Her latest chemistries showed a BUN of 53, sodium 124, potassium 3.7, chloride 89, CO2 24, glucose 577, and creatinine 6.9. PLAN: So, at this time, we will modify once again her basal and bolus insulin regimen and increase the Lantus to 24 units subcutaneous at bedtime daily to start tonight. We also increased the Novolog to 12 units subcutaneous t.i.d. before meals as ordered. We will titrate incrementally as indicated to optimize metabolic control. We will follow. Bella Gold MD
[2017-10-11] MEDS ORDERED: (Novolin R) Insulin Human Regular 100 units/ml vial SC ONE (06:56)
--- NOTE | 2017-10-11 07:04 | CARD ---
APPROVED REPORT EKG Measurement Heart [id number] <Conclusion> Normal sinus rhythm Possible Left atrial enlargement Left axis deviation Left ventricular hypertrophy Cannot rule out Septal infarct, age undetermined Abnormal ECG
[2017-10-11] MEDS: Multivitamin Vitamin B Complex (Nephro-Vite) Tab PO SCH (07:25)
[2017-10-11] MEDS ORDERED: (Novolog) Insulin Aspart, Recombinant 100 u/ml 10 ml vial SC SCH (07:30)
[2017-10-11] MEDS: (Novolog) Insulin Aspart, Recombinant 100 u/ml 10 ml vial SC SCH ×6 (08:05→21:44)
[2017-10-11] MEDS: Albuterol 0.083% Inhal Sol (2.5 mg/3 mL) UD INH SCH ×3 (09:20→21:00)
[2017-10-11 09:25] LABS: BASO # 0.1 K/uL (0.0-0.2); BASO % 1.3 % (0.0-2.0); EOS # 0.1 K/uL (0.0-0.7); EOS % 2.5 % (0.0-4.0); HEMOGLOBIN 11.9 g/dL (11.0-16.0); LYMPH # 2.1 K/uL (1.0-4.3); LYMPH % 39.9 % (20.0-40.0); MEAN CELL VOLUME 85.2 fL (81.0-99.0); MEAN CORPUSCULAR HEMOGLOBIN 28.3 pg (27.0-31.0); MEAN CORPUSCULAR HGB CONC 33.2 g/dL (33.0-37.0); MEAN PLATELET VOLUME 10.1 fL (7.2-11.7); MONO # 0.7 K/uL (0.0-0.8); MONO % 12.7 % (0.0-10.0); NEUT # 2.3 K/uL (1.8-7.0); NEUT % 43.6 % (50.0-75.0); RBC 4.19 Mil/uL (3.80-5.20); RED CELL DISTRIBUTION WIDTH 15.7 % (11.5-14.5); WHITE BLOOD COUNT 5.3 K/uL (4.8-10.8)
[2017-10-11 09:46] LABS: ALB/GLOB RATIO 1.2 (1.0-2.1); ALBUMIN 3.3 g/dL (3.5-5.0); CALCIUM 8.4 mg/dl (8.6-10.4)
[2017-10-11 18:20] VITALS: RESP 20
--- NOTE | 2017-10-11 20:13 | CP.PCM.PN ---
Subjective - Date & Time of Evaluation Date of Evaluation: 10/11/17 Time of Evaluation: 13:25 - Subjective Subjective: Patient fatigued but responsive. Blood sugars still not under good control. Insulin dose being ajusted. Continue supportive measures. Objective - Vital Signs/Intake and Output Vital Signs (last 24 hours): Temp Pulse Resp BP Pulse Ox 97.7 F 73 20 110/64 97 10/11/17 15:00 10/11/17 15:00 10/11/17 15:00 10/11/17 15:00 10/11/17 15:00 Intake and Output: 10/11/17 10/12/17 18:59 06:59 Intake Total 150 Balance 150 - Medications Medications: Current Medications Albuterol Sulfate (Albuterol 0.083% Inhal Luisa (2.5 Mg/3 Ml) Ud) 2.5 mg INH RQ8 [facility] Ascorbic Acid (Vitamin C 500 Mg Tab) 500 mg PO DAILY [facility] Last Admin: 10/11/17 13:18 Dose: 500 mg Atenolol (Tenormin) 50 mg PO DAILY [facility] Last Admin: 10/11/17 13:20 Dose: Not Given Clopidogrel Bisulfate (Plavix) 75 mg PO DAILY [facility] Last Admin: 10/11/17 13:18 Dose: 75 mg Ergocalciferol (Drisdol 50,000 Intl Units Cap) 1 cap PO Q7D [facility] Last Admin: 10/09/17 17:59 Dose: 1 cap Heparin Sodium (Porcine) (Heparin) 5,000 units SC Q12 [facility] Last Admin: 10/10/17 11:30 Dose: Not Given Hydralazine HCl (Apresoline) 25 mg PO BID [facility] Last Admin: 10/11/17 17:15 Dose: 25 mg Insulin Aspart (Novolog) 0 unit SC ACHS [facility] PRN Reason: Protocol Last Admin: 10/11/17 17:01 Dose: 2 unit Insulin Aspart (Novolog) 15 unit SC AC [facility] Last Admin: 10/11/17 17:01 Dose: 15 unit Insulin Glargine (Lantus) 20 unit SC HS [facility] Last Admin: 10/10/17 21:53 Dose: 20 units Montelukast Sodium (Singulair) 10 mg PO DAILY [facility] Last Admin: 10/11/17 13:18 Dose: 10 mg Rosuvastatin Calcium (Crestor) 5 mg PO HS [facility] Last Admin: 10/10/17 21:53 Dose: 5 mg Sevelamer Carbonate (Renvela) 800 mg PO TIDCC [facility] Last Admin: 10/11/17 16:51 Dose: 800 mg Vitamin B Complex/Vit C/Folic Acid (Nephro-Marina) 1 tab PO 0800 [facility] Last Admin: 10/11/17 07:25 Dose: 1 tab - Labs Labs: 10/11/17 09:18 10/11/17 09:18 PT 11.0 SECONDS (9.7-12.2) 10/10/17 13:37 INR 1.0 10/10/17 13:37 APTT 29 SECONDS (21-34) 10/10/17 13:37 - Constitutional Appears: Chronically Ill - Head Exam Head Exam: NORMOCEPHALIC - Eye Exam Eye Exam: Normal appearance Pupil Exam: NORMAL ACCOMODATION - Neck Exam Neck Exam: Normal Inspection - Respiratory Exam Respiratory Exam: NORMAL BREATHING PATTERN - Cardiovascular Exam Cardiovascular Exam: REGULAR RHYTHM - GI/Abdominal Exam GI & Abdominal Exam: Soft - Rectal Exam Rectal Exam: Deferred - Exam External exam: NORMAL EXTERNAL EXAM - Extremities Exam Extremities Exam: Tenderness - Back Exam Back Exam: NORMAL INSPECTION - Neurological Exam Neurological Exam: Oriented x3 - Psychiatric Exam Psychiatric exam: Depressed Assessment and Plan (1) Hyperosmolar non-ketotic state in patient with type 2 diabetes mellitus Status: Acute (2) [id number] renal failure Status: Acute (3) Altered awareness, transient Status: Acute
[2017-10-11] MEDS: (Lantus) Insulin Glargine, Recombinant SC SCH (21:43)
--- NOTE | 2017-10-11 23:25 | CP.PCM.PN ---
Subjective - Date & Time of Evaluation Date of Evaluation: 10/11/17 Time of Evaluation: 15:00 - Subjective Subjective: SEEN ON RENAL F/U ALL EMR REVIEWED FEELS IMPROVED Objective - Vital Signs/Intake and Output Vital Signs (last 24 hours): Temp Pulse Resp BP Pulse Ox 97.7 F 73 20 110/64 97 10/11/17 15:00 10/11/17 15:00 10/11/17 15:00 10/11/17 15:00 10/11/17 15:00 Intake and Output: 10/11/17 10/12/17 18:59 06:59 Intake Total 150 300 Balance 150 300 - Medications Medications: Current Medications Albuterol Sulfate (Albuterol 0.083% Inhal Luisa (2.5 Mg/3 Ml) Ud) 2.5 mg INH RQ8 [facility] Last Admin: 10/11/17 21:00 Dose: 2.5 mg Ascorbic Acid (Vitamin C 500 Mg Tab) 500 mg PO DAILY [facility] Last Admin: 10/11/17 13:18 Dose: 500 mg Atenolol (Tenormin) 50 mg PO DAILY [facility] Last Admin: 10/11/17 13:20 Dose: Not Given Clopidogrel Bisulfate (Plavix) 75 mg PO DAILY [facility] Last Admin: 10/11/17 13:18 Dose: 75 mg Ergocalciferol (Drisdol 50,000 Intl Units Cap) 1 cap PO Q7D [facility] Last Admin: 10/09/17 17:59 Dose: 1 cap Heparin Sodium (Porcine) (Heparin) 5,000 units SC Q12 [facility] Last Admin: 10/10/17 11:30 Dose: Not Given Hydralazine HCl (Apresoline) 25 mg PO BID [facility] Last Admin: 10/11/17 17:15 Dose: 25 mg Insulin Aspart (Novolog) 0 unit SC ACHS [facility] PRN Reason: Protocol Last Admin: 10/11/17 21:44 Dose: Not Given Insulin Aspart (Novolog) 15 unit SC AC [facility] Last Admin: 10/11/17 17:01 Dose: 15 unit Insulin Glargine (Lantus) 20 unit SC HS [facility] Last Admin: 10/11/17 21:43 Dose: 20 units Montelukast Sodium (Singulair) 10 mg PO DAILY [facility] Last Admin: 10/11/17 13:18 Dose: 10 mg Rosuvastatin Calcium (Crestor) 5 mg PO HS [facility] Last Admin: 10/11/17 21:43 Dose: 5 mg Sevelamer Carbonate (Renvela) 800 mg PO TIDCC [facility] Last Admin: 10/11/17 16:51 Dose: 800 mg Vitamin B Complex/Vit C/Folic Acid (Nephro-Marina) 1 tab PO 0800 [facility] Last Admin: 10/11/17 07:25 Dose: 1 tab - Labs Labs: 10/11/17 09:18 10/11/17 09:18 PT 11.0 SECONDS (9.7-12.2) 10/10/17 13:37 INR 1.0 10/10/17 13:37 APTT 29 SECONDS (21-34) 10/10/17 13:37 Assessment and Plan - Assessment and Plan (Free Text) Assessment: ESRD ON HD M W F .. TO BE C/O ANEMIA OF CKD ..H/H STABLE IRDM .. UNCONTROLLED .. A1C 13.4 VERY HIGH .. REGINOG ENDO CONSULT MMP P : C/O CURRENT CARE H D TIW C/O PRESENT MEDS SUGG ENDO CONSULT
--- NOTE | 2017-10-12 00:39 | CON ---
DATE: HISTORY OF PRESENT ILLNESS: This 81-year-old lady with a history of diabetes mellitus, COPD with emphysema, chronic renal failure, hypertension, CHF, TIA, dementia, was now admitted with altered mental status and confused state with dry mouth, history of increased frequency of urination, constipation and arthralgia. Her blood sugar was noted to be 1000 mg percent. She was started on therapy with insulin and IV fluids and other measures. She was seen by renal, and hemodialysis was arranged. There was no history of chest pain. There was no hemoptysis. PAST MEDICAL HISTORY: As stated above, revealed history of diabetes, COPD, chronic renal failure, hypertension, CHF, TIA, arthralgia, and dementia. FAMILY HISTORY: Reported to be relatively of no significance. SOCIAL HISTORY: She believes her to be a nonsmoker and non-consumer of alcohol. ALLERGY: SHE REPORTED NO HISTORY OF ALLERGIES. SYSTEMIC: As reported above, revealed confusion, dryness in the mouth, increased frequency of urine, constipation, dry skin. There was no vomiting, no hemoptysis. PHYSICAL EXAMINATION: GENERAL: On examination patient was reported to be confused on admission, and is now alert and is not in acute distress. VITAL SIGNS: She is afebrile, her blood pressure is 116/52, pulse rate 58, respiration 18. HEENT: Unremarkable. NECK: Supple. No lymphadenopathy. Thyroid is unremarkable. HEART: Regular, there are no gallops present. LUNGS: Diminished breath sounds over the lung bases with occasional rhonchi. ABDOMEN: Soft. EXTREMITIES: Legs, no edema. LABORATORY DATA: White count is 5300, hemoglobin 11.9, platelet count is 209,000, serum sodium 126, serum potassium 3.5, anion gap was 15, BUN was 70, creatinine 5.1. Random glucose now is 418, hemoglobin A1c is 13.4, alkaline phosphatase is 149, which is high, total protein 6.1, with albumin 3.3. Chest x-ray does not show congestive changes and no active disease at this stage. ASSESSMENT: 1. Respiratory insufficiency. 2. COPD with emphysema. 3. Diabetes mellitus. 4. Hyperosmolar state. 5. Hyperglycemia. 6. Chronic renal failure. 7. Hypertension. 8. Altered mental status. 9. Dementia. 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 Venous thrombosis prophylaxis, and SCDs. Antihypertensive therapy and therapy for diabetes mellitus. Francisco Javier Guaman MD
--- NOTE | 2017-10-12 00:44 | PN ---
DATE: ENDOCRINOLOGY FOLLOWUP NOTE LOCATION: Room 651. SUBJECTIVE: This is an 81-year-old female with recent uncontrolled type-2 insulin-requiring diabetes, presenting with hyperosmolar hyperglycemic state and marked hyperglycemic exacerbation, is now being followed closely for metabolic management. Her glycemic levels are fluctuating but improved and the glucose values today have ranged from 155 to 185 mg/dL. LABORATORY DATA: Chemistry showed BUN of 53, sodium 124, potassium 3.7, chloride 89, CO2 24, glucose 527, and creatinine 3.9. PLAN: So, at this time, we will modify once again her basal and bolus insulin regimen and increase the NovoLog to 12 units subcutaneous t.i.d. before meals as ordered. We will also continue the basal insulin given as Lantus at 20 units subcutaneous at bedtime daily as ordered. We will continue the low-dose correction scale using NovoLog insulin as given. Serial chemistries and supplement accordingly as needed. We will follow. Bella Gold MD
[2017-10-12] MEDS: Albuterol 0.083% Inhal Sol (2.5 mg/3 mL) UD INH SCH ×3 (02:13→16:42)
[2017-10-12] MEDS: (Novolog) Insulin Aspart, Recombinant 100 u/ml 10 ml vial SC SCH ×8 (07:54→22:25)
[2017-10-12] MEDS: Multivitamin Vitamin B Complex (Nephro-Vite) Tab PO SCH (08:30)
--- NOTE | 2017-10-12 13:01 | PN ---
DATE: ENDOCRINOLOGY FOLLOWUP NOTE LOCATION: Room 651 SUBJECTIVE: This is an 81-year-old female with recent uncontrolled type 2 insulin-requiring diabetes, presenting here with altered mental status and supervening hyperglycemic accelerations and is now being followed closely for metabolic management. Her glycemic levels are fluctuating with marked hyperglycemic accelerations overnight and glucose values switching from 321 to over 500 mg/dL. It was 136 yesterday morning as noted. The latest chemistry showed BUN of 70, sodium 126, potassium 3.5, chloride 90, CO2 25, glucose is 418, and creatinine 5.1. Her hemoglobin A1c is 13.4%, which is quite elevated and indicative of suboptimal metabolic control of her diabetic condition. So at this time, we will modify once again her basal and bolus insulin regimen and increase the Novolog to 20 units subcutaneous t.i.d. before meals as ordered. We will also add into her prescription the basal insulin as indicated to optimize metabolic control. We will obtain serial chemistries and supplement accordingly as needed. We will also continue the low-dose correction scale using Novolin insulin as ordered. We will follow. Bella Gold MD
--- NOTE | 2017-10-12 17:45 | CP.PCM.PN ---
Subjective - Date & Time of Evaluation Date of Evaluation: 10/12/17 Time of Evaluation: 11:00 - Subjective Subjective: [employer] NOTES Objective - Vital Signs/Intake and Output Vital Signs (last 24 hours): Temp Pulse Resp BP Pulse Ox 97.6 F 66 20 125/64 97 10/12/17 16:00 10/12/17 17:06 10/12/17 16:00 10/12/17 16:00 10/12/17 16:00 Intake and Output: 10/12/17 10/12/17 06:59 18:59 Intake Total 300 Balance 300 - Medications Medications: Current Medications Albuterol Sulfate (Albuterol 0.083% Inhal Luisa (2.5 Mg/3 Ml) Ud) 2.5 mg INH RQ8 [facility] Last Admin: 10/12/17 16:42 Dose: Not Given Ascorbic Acid (Vitamin C 500 Mg Tab) 500 mg PO DAILY [facility] Last Admin: 10/12/17 09:54 Dose: 500 mg Atenolol (Tenormin) 50 mg PO DAILY [facility] Last Admin: 10/12/17 09:54 Dose: 50 mg Clopidogrel Bisulfate (Plavix) 75 mg PO DAILY [facility] Last Admin: 10/12/17 09:54 Dose: 75 mg Ergocalciferol (Drisdol 50,000 Intl Units Cap) 1 cap PO Q7D [facility] Last Admin: 10/09/17 17:59 Dose: 1 cap Heparin Sodium (Porcine) (Heparin) 5,000 units SC Q12 [facility] Last Admin: 10/10/17 11:30 Dose: Not Given Hydralazine HCl (Apresoline) 25 mg PO BID [facility] Last Admin: 10/12/17 09:55 Dose: 25 mg Insulin Aspart (Novolog) 0 unit SC ACHS [facility] PRN Reason: Protocol Last Admin: 10/12/17 12:25 Dose: 3 unit Insulin Aspart (Novolog) 20 unit SC AC [facility] Last Admin: 10/12/17 12:25 Dose: 20 unit Insulin Glargine (Lantus) 34 unit SC HS [facility] Montelukast Sodium (Singulair) 10 mg PO DAILY [facility] Last Admin: 10/12/17 09:56 Dose: 10 mg Rosuvastatin Calcium (Crestor) 5 mg PO HS [facility] Last Admin: 10/11/17 21:43 Dose: 5 mg Sevelamer Carbonate (Renvela) 800 mg PO TIDCC [facility] Last Admin: 10/12/17 12:24 Dose: 800 mg Vitamin B Complex/Vit C/Folic Acid (Nephro-Marina) 1 tab PO 0800 [facility] Last Admin: 10/12/17 08:30 Dose: 1 tab - Labs Labs: 10/11/17 09:18 10/11/17 09:18 PT 11.0 SECONDS (9.7-12.2) 10/10/17 13:37 INR 1.0 10/10/17 13:37 APTT 29 SECONDS (21-34) 10/10/17 13:37
--- NOTE | 2017-10-12 18:53 | CP.PCM.PN ---
Subjective - Date & Time of Evaluation Date of Evaluation: 10/12/17 Time of Evaluation: 15:55 - Subjective Subjective: Alert ,responsive but glucose level still high. Dr Gold not available until 10/21 17. Will increase insulin dosage. Patient instructed to follow strict diet and take insulin dose twice a day. Objective - Vital Signs/Intake and Output Vital Signs (last 24 hours): Temp Pulse Resp BP Pulse Ox 97.6 F 66 20 125/64 97 10/12/17 16:00 10/12/17 17:06 10/12/17 16:00 10/12/17 16:00 10/12/17 16:00 Intake and Output: 10/12/17 10/12/17 06:59 18:59 Intake Total 300 Balance 300 - Medications Medications: Current Medications Albuterol Sulfate (Albuterol 0.083% Inhal Luisa (2.5 Mg/3 Ml) Ud) 2.5 mg INH RQ8 [facility] Last Admin: 10/12/17 16:42 Dose: Not Given Ascorbic Acid (Vitamin C 500 Mg Tab) 500 mg PO DAILY [facility] Last Admin: 10/12/17 09:54 Dose: 500 mg Atenolol (Tenormin) 50 mg PO DAILY [facility] Last Admin: 10/12/17 09:54 Dose: 50 mg Clopidogrel Bisulfate (Plavix) 75 mg PO DAILY [facility] Last Admin: 10/12/17 09:54 Dose: 75 mg Ergocalciferol (Drisdol 50,000 Intl Units Cap) 1 cap PO Q7D [facility] Last Admin: 10/09/17 17:59 Dose: 1 cap Heparin Sodium (Porcine) (Heparin) 5,000 units SC Q12 [facility] Last Admin: 10/10/17 11:30 Dose: Not Given Hydralazine HCl (Apresoline) 25 mg PO BID [facility] Last Admin: 10/12/17 18:11 Dose: 25 mg Insulin Aspart (Novolog) 0 unit SC ACHS [facility] PRN Reason: Protocol Last Admin: 10/12/17 18:11 Dose: Not Given Insulin Aspart (Novolog) 20 unit SC AC [facility] Last Admin: 10/12/17 17:00 Dose: Not Given Insulin Glargine (Lantus) 34 unit SC HS [facility] Montelukast Sodium (Singulair) 10 mg PO DAILY [facility] Last Admin: 10/12/17 09:56 Dose: 10 mg Rosuvastatin Calcium (Crestor) 5 mg PO HS [facility] Last Admin: 10/11/17 21:43 Dose: 5 mg Sevelamer Carbonate (Renvela) 800 mg PO TIDCC [facility] Last Admin: 10/12/17 18:00 Dose: 800 mg Vitamin B Complex/Vit C/Folic Acid (Nephro-Marina) 1 tab PO 0800 [facility] Last Admin: 10/12/17 08:30 Dose: 1 tab - Labs Labs: 10/11/17 09:18 10/11/17 09:18 PT 11.0 SECONDS (9.7-12.2) 10/10/17 13:37 INR 1.0 10/10/17 13:37 APTT 29 SECONDS (21-34) 10/10/17 13:37 - Constitutional Appears: Chronically Ill - Head Exam Head Exam: NORMOCEPHALIC - Eye Exam Eye Exam: Normal appearance Pupil Exam: NORMAL ACCOMODATION - ENT Exam ENT Exam: Normal Exam - Neck Exam Neck Exam: Normal Inspection - Respiratory Exam Respiratory Exam: Decreased Breath Sounds - Cardiovascular Exam Cardiovascular Exam: REGULAR RHYTHM - GI/Abdominal Exam GI & Abdominal Exam: Hyperactive Bowel Sounds - Rectal Exam Rectal Exam: Deferred - Exam External exam: NORMAL EXTERNAL EXAM Speculum exam: NORMAL SPECULUM EXAM - Extremities Exam Extremities Exam: Tenderness - Back Exam Back Exam: NORMAL INSPECTION - Neurological Exam Neurological Exam: Awake - Psychiatric Exam Psychiatric exam: Depressed - Skin Skin Exam: Dry Assessment and Plan (1) Hyperosmolar non-ketotic state in patient with type 2 diabetes mellitus Status: Acute (2) [id number] renal failure Status: Acute (3) Altered awareness, transient Status: Acute
[2017-10-12] MEDS ORDERED: (Lantus) Insulin Glargine, Recombinant SC SCH (22:00)
[2017-10-13] MEDS: Albuterol 0.083% Inhal Sol (2.5 mg/3 mL) UD INH SCH (07:17)
[2017-10-13] MEDS: (Novolog) Insulin Aspart, Recombinant 100 u/ml 10 ml vial SC SCH ×2 (08:25→09:03)
[2017-10-13 09:54] VITALS: BP 156/64; TEMP 98.2; O2SAT 97
[2017-10-13] MEDS: Multivitamin Vitamin B Complex (Nephro-Vite) Tab PO SCH (10:12)
[2017-10-13 11:30] VITALS: PULSE 78
--- NOTE | 2017-10-13 14:12 | PN ---
DATE: ENDOCRINOLOGY FOLLOWUP NOTE LOCATION: In room #651. SUBJECTIVE: This is an 81-year-old female with recent uncontrolled type 2 insulin-requiring diabetes with persistent hyperglycemic accelerations which are improving as noted today. Her glycemic levels are ranging from 184-240 and 330 mg/dL. Her latest chemistries showed a BUN of 53, sodium 124, potassium 3.7, chloride 89, CO2 of 24, glucose 527 and creatinine 3.9. Her latest hemoglobin A1c is 13.4% which is quite elevated indicative of suboptimal metabolic control of her diabetic condition. We will modify once again her basal and bolus insulin regimen and increase the Lantus to 40 units subcu at bedtime daily to start tonight and Novolin insulin to obviate hypoglycemia and detailed orders have been given. We will also add and titrate her prandial insulin to NovoLog given as 20 units subcu t.i.d before meals as ordered. We will follow and advise accordingly. Bella Gold MD
--- NOTE | 2017-10-13 21:19 | CP.PCM.DIS ---
Provider - Provider Date of Admission: 10/08/17 21:29 Attending physician: Valdez Rodriguez MD Time Spent in preparation of Discharge (in minutes): 26 Diagnosis - Discharge Diagnosis (1) Hyperosmolar non-ketotic state in patient with type 2 diabetes mellitus Status: Acute (2) [id number] renal failure Status: Acute Priority: High (3) Altered awareness, transient Status: Acute Hospital Course - Lab Results Lab Results: Most Recent Lab Values WBC 5.3 K/uL (4.8-10.8) 10/11/17 09:18 RBC 4.19 Mil/uL (3.80-5.20) 10/11/17 09:18 Hgb 11.9 g/dL (11.0-16.0) 10/11/17 09:18 Hct 35.7 % (34.0-47.0) 10/11/17 09:18 MCV 85.2 fL (81.0-99.0) 10/11/17 09:18 MCH 28.3 pg (27.0-31.0) 10/11/17 09:18 MCHC 33.2 g/dL (33.0-37.0) 10/11/17 09:18 RDW 15.7 % (11.5-14.5) H 10/11/17 09:18 Plt Count 209 K/uL (130-400) 10/11/17 09:18 MPV 10.1 fL (7.2-11.7) 10/11/17 09:18 Neut % (Auto) 43.6 % (50.0-75.0) L 10/11/17 09:18 Lymph % (Auto) 39.9 % (20.0-40.0) 10/11/17 09:18 [place] % (Auto) 12.7 % (0.0-10.0) H 10/11/17 09:18 Eos % (Auto) 2.5 % (0.0-4.0) 10/11/17 09:18 Baso % (Auto) 1.3 % (0.0-2.0) 10/11/17 09:18 Neut # 2.3 K/uL (1.8-7.0) 10/11/17 09:18 Lymph # 2.1 K/uL (1.0-4.3) 01/05/18 09:18 [place] # 0.7 K/uL (0.0-0.8) 10/11/17 09:18 Eos # 0.1 K/uL (0.0-0.7) 10/11/17 09:18 Baso # 0.1 K/uL (0.0-0.2) 10/11/17 09:18 PT 11.0 SECONDS (9.7-12.2) 10/10/17 13:37 INR 1.0 10/10/17 13:37 APTT 29 SECONDS (21-34) 10/10/17 13:37 Puncture Site Rba 10/08/17 19:41 pCO2 38 mm/Hg (35-45) 10/08/17 19:41 pO2 69 mm/Hg (80-100) L 10/08/17 19:41 HCO3 21.5 mmol/L (21-28) 10/08/17 19:41 ABG pH 7.35 (7.35-7.45) 10/08/17 19:41 ABG Total CO2 22.2 mmol/L (22-28) 10/08/17 19:41 ABG O2 Saturation 96.6 % (95-98) 10/08/17 19:41 ABG Base Excess -4.2 mmol/L (-2.0-3.0) L 10/08/17 19:41 Mohinder Test Na 10/08/17 19:41 ABG Potassium 5.4 mmol/L (3.6-5.2) H 10/08/17 19:41 A-a O2 Difference 33.0 mm/Hg 10/08/17 19:41 Respiratory Index 0.5 10/08/17 19:41 Sodium 137.0 mmol/l (132-148) 10/08/17 19:41 Chloride 97.0 mmol/L (98-107) L 10/08/17 19:41 Glucose > 750 mg/dl (65-105) H* D 10/08/17 19:41 Lactate 2.5 mmol/L (0.7-2.1) H 10/08/17 19:41 Liter Flow 0 10/08/17 19:41 FiO2 21.0 % 10/08/17 19:41 Crit Value Called To Ashely retana rn 01/02/18 19:41 Crit Value Called By Lendrafael 10/08/17 19:41 Crit Value Read Back Y 10/08/17 19:41 Blood Gas Notified Time 194510/08/17 19:41 Sodium 126 mmol/L (132-148) L 10/11/17 09:18 Potassium 3.5 mmol/L (3.6-5.2) L 10/11/17 09:18 Chloride 90 mmol/L (98-107) L 10/11/17 09:18 Carbon Dioxide 25 mmol/L (22-30) 10/11/17 09:18 Anion Gap 15 (10-20) 10/11/17 09:18 BUN 70 mg/dL (7-17) H 10/11/17 09:18 Creatinine 5.1 mg/dL (0.7-1.2) H 10/11/17 09:18 Est GFR ( Amer) 10 10/11/17 09:18 Est GFR (Non-Af Amer) 8 10/11/17 09:18 POC Glucose (mg/dL) 330 mg/dL (65-110) H 10/13/17 06:19 Random Glucose 418 mg/dL (65-105) H* D 10/11/17 09:18 Hemoglobin A1c 13.4 % (4.2-6.5) H D 10/11/17 09:18 Calcium 8.4 mg/dl (8.6-10.4) L 10/11/17 09:18 Total Bilirubin 0.4 mg/dL (0.2-1.3) 10/11/17 09:18 AST 20 U/L (14-36) 10/11/17 09:18 ALT 27 U/L (9-52) 10/11/17 09:18 Alkaline Phosphatase 149 U/L (38-126) H D 10/11/17 09:18 Total Protein 6.1 g/dL (6.3-8.3) L 10/11/17 09:18 Albumin 3.3 g/dL (3.5-5.0) L 10/11/17 09:18 Globulin 2.8 gm/dL (2.2-3.9) 10/11/17 09:18 Albumin/Globulin Ratio 1.2 (1.0-2.1) 10/11/17 09:18 Lipase 181 U/L (23-300) 10/08/17 23:27 Arterial Blood Potassium 5.4 mmol/L (3.6-5.2) H 10/08/17 19:41 Urine Color Yellow (YELLOW) 10/08/17 20:00 Urine Clarity Hazy (Clear) 10/08/17 20:00 Urine pH 5.0 (5.0-8.0) 10/08/17 20:00 Ur Specific [place] 1.018 (1.003-1.030) 10/08/17 20:00 Urine Protein 2+ mg/dL (NEGATIVE) H 10/08/17 20:00 Urine Glucose (UA) 3+ mg/dL (Normal) H 10/08/17 20:00 Urine Ketones Trace mg/dL (NEGATIVE) 10/08/17 20:00 Urine Blood 2+ (NEGATIVE) H 10/08/17 20:00 Urine Nitrate Negative (NEGATIVE) 10/08/17 20:00 Urine Bilirubin Negative (NEGATIVE) 10/08/17 20:00 Urine Urobilinogen Normal mg/dL (0.2-1.0) 10/08/17 20:00 Ur Leukocyte Esterase Neg John/uL (Negative) 10/08/17 20:00 Urine WBC (Auto) 8 /hpf (0-5) H 10/08/17 20:00 Urine RBC (Auto) 42 /hpf (0-3) H 10/08/17 20:00 Ur Squamous Epith Cells 2 /hpf (0-5) 10/08/17 20:00 Urine Bacteria Occ (<OCC) H 10/08/17 20:00 Serum Ketones Negative (NEGATIVE) 10/08/17 23:27 Discharge Exam - Head Exam Head Exam: NORMOCEPHALIC - Eye Exam Eye Exam: Normal appearance Pupil Exam: NORMAL ACCOMODATION - ENT Exam ENT Exam: Normal Exam - Neck Exam Neck exam: Normal Inspection - Respiratory Exam Respiratory Exam: NORMAL BREATHING PATTERN - Cardiovascular Exam Cardiovascular Exam: REGULAR RHYTHM - GI/Abdominal Exam GI & Abdominal Exam: Normal Bowel Sounds - Rectal Exam Rectal Exam: Deferred - Exam External exam: NORMAL EXTERNAL EXAM - Back Exam Back exam: NORMAL INSPECTION - Neurological Exam Neurological exam: Altered - Psychiatric Exam Psychiatric exam: Depressed - Skin Skin Exam: Dry Discharge Plan - Follow Up Plan Condition: FAIR Disposition: HOME/ ROUTINE Instructions: Heart Failure (DC), Chronic Kidney Disease (DC), How to Check Your Blood Sugar (DC), Diabetes Mellitus Type 1 in Adults (DC), Diabetic Hypoglycemia (DC) Additional Instructions: Please continue HD as scheduled please f/u with Dr. rodriguez office in i week Please continue all home medications Please reduce intake of sugar
[2017-10-13] MEDS ORDERED: (Lantus) Insulin Glargine, Recombinant SC SCH (22:00)
--- NOTE | 2017-10-14 09:24 | PN ---
DATE: SUBJECTIVE: Patient is alert,oriented, in bed. PHYSICAL EXAMINATION: VITAL SIGNS: Patient is afebrile. Her blood pressure 118/76, pulse rate 75, respirations 20. GENERAL: She is not in distress at rest. HEART: Regular. There is no gallop rhythm. LUNGS: Diminished breath sounds over the lung bases. Rhonchi decreased. ABDOMEN: Soft. EXTREMITIES: Legs, no edema. Her blood sugar is 367. She was seen by the hoisting pile driving engineer and she is on treatment for diabetes mellitus and on hemodialysis for chronic renal failure. IMPRESSION: Respiratory insufficiency, chronic obstructive pulmonary disease with emphysema, arthritis, chronic renal failure, dementia and diabetes mellitus. PLAN: Continue the current measures including albuterol and followup by renal and hoisting pile driving engineer. Francisco Javier Guaman MD
== END 2017-10-13 11:33 | disposition home or self-care (01) | DRG 637 ==
LOC: C.ER 19:07 → C.9E 21:29 → C.6T 10-09 12:10
PROVIDERS: ADMIT Internal Medicine; ATTEND Internal Medicine
PROC: 5A1D70Z Performance of Urinary Filtration, Intermittent, Less than 6 Hours Per Day (ICD-10-PCS; principal; 2017-10-09)
DX: E11.00 Type 2 diabetes mellitus with hyperosmolarity without nonketotic hyperglycemic-hyperosmolar coma (NKHHC) (principal); N18.6 End stage renal disease; I13.2 Hypertensive heart and chronic kidney disease with heart failure and with stage 5 chronic kidney disease, or end stage renal disease; N17.9 Acute kidney failure, unspecified; E11.22 Type 2 diabetes mellitus with diabetic chronic kidney disease; F03.90 Unspecified dementia, unspecified severity, without behavioral disturbance, psychotic disturbance, mood disturbance, and anxiety; I50.9 Heart failure, unspecified; Z99.2 Dependence on renal dialysis; Z79.4 Long term (current) use of insulin; E78.00 Pure hypercholesterolemia, unspecified; F32.9 Major depressive disorder, single episode, unspecified; Z86.73 Personal history of transient ischemic attack (TIA), and cerebral infarction without residual deficits; G43.909 Migraine, unspecified, not intractable, without status migrainosus; K21.9 Gastro-esophageal reflux disease without esophagitis; D63.1 Anemia in chronic kidney disease; E87.5 Hyperkalemia; E11.65 Type 2 diabetes mellitus with hyperglycemia; E86.0 Dehydration; J43.9 Emphysema, unspecified

== ENCOUNTER 2018-01-21 10:27 | Emergency (ER) | payer MEDICARE, OTHER ==
[2018-01-21 10:27] VITALS: BMI 21.4
[2018-01-21 13:32] LABS: BASO % 0.6 % (0.0-2.0); EOS # 0.1 K/uL (0.0-0.7); EOS % 2.3 % (0.0-4.0); HEMOGLOBIN 11.7 g/dL (11.0-16.0); LYMPH # 1.9 K/uL (1.0-4.3); LYMPH % 36.1 % (20.0-40.0); MEAN CELL VOLUME 85.6 fL (81.0-99.0); MEAN CORPUSCULAR HEMOGLOBIN 28.3 pg (27.0-31.0); MEAN CORPUSCULAR HGB CONC 33.1 g/dL (33.0-37.0); MEAN PLATELET VOLUME 9.6 fL (7.2-11.7); MONO # 0.8 K/uL (0.0-0.8); MONO % 14.8 % (0.0-10.0); NEUT # 2.4 K/uL (1.8-7.0); NEUT % 46.2 % (50.0-75.0); RBC 4.15 Mil/uL (3.80-5.20); WHITE BLOOD COUNT 5.2 K/uL (4.8-10.8)
[2018-01-21 13:48] LABS: SQUAMOUS EPITHIAL < 1 /hpf (0-5); URINE BILIRUBIN NEGATIVE (NEGATIVE); URINE BLOOD NEGATIVE (NEGATIVE); URINE CLARITY Clear (Clear); URINE COLOR Yellow (YELLOW); URINE GLUCOSE (UA) 1+ mg/dL (Normal); URINE LEUKOCYTE ESTERASE 1+ Leu/uL (Negative); URINE PROTEIN 2+ mg/dL (NEGATIVE); URINE UROBILINOGEN NORMAL mg/dL (0.2-1.0)
--- NOTE | 2018-01-21 13:50 | C.PDOC ---
History Of Present Illness 82 y/o female presents to ED with complaints of vague abdominal discomfort for 3 weeks and chronic bilateral knee pain. Patient is on dialysis MWF and states she had similar symptoms before that resolved. Patient denies fever, chills, nausea, vomiting, back pain, dysuria or any other complaints at this time. Time Seen by Provider: 01/21/18 13:07 Chief Complaint (Nursing): Abdominal Pain History Per: Patient History/Exam Limitations: no limitations Onset/Duration Of Symptoms: Days Current Symptoms Are (Timing): Still Present Past Medical History Reviewed: Historical Data, Nursing Documentation, Vital Signs Vital Signs: Last Vital Signs Temp 98.8 F 01/21/18 14:05 Pulse 65 01/21/18 14:05 Resp 17 01/21/18 14:05 BP 193/75 H 01/21/18 14:05 Pulse Ox 97 01/21/18 14:19 - Medical History PMH: Anxiety, Arthritis, Asthma, Bronchitis, Cardia Arrhythmia, CHF, COPD ( Emphysema,), Dementia, Depression, Diabetes (type 2), Emphysema, Fractures, HTN , Hypercholesterolemia, Migraine, End Stage Renal Disease, Chronic Kidney Disease, TIA Surgical History: No Surg Hx - [facility] Procedures (10/08/17) ASSISTANCE WITH RESPIRATORY VENTILATION, 24-96 HRS, CPAP (11/01/16) INSERTION OF INFUSION DEV INTO INF VENA CAVA, PERC APPROACH (10/06/15) PERFORMANCE OF URINARY FILTRATION, MULTIPLE (12/24/16) PERFORMANCE OF URINARY FILTRATION, SINGLE (11/01/16) Family History: States: No Known Family Hx - Social History Hx Tobacco Use: No Hx Alcohol Use: No Hx Substance Use: No - Immunization History Hx Tetanus Toxoid Vaccination: Yes Hx Influenza Vaccination: Yes (06/2015) Hx Pneumococcal Vaccination: Yes (2014) Review Of Systems Constitutional: Negative for: Fever, Chills Gastrointestinal: Positive for: Abdominal Pain. Negative for: Nausea, Vomiting Genitourinary: Negative for: Dysuria Musculoskeletal: Positive for: Leg Pain Skin: Negative for: Rash Physical Exam - Physical Exam Appears: Non-toxic, No Acute Distress Skin: Warm, Dry, No Rash Head: Atraumatic, Normacephalic Oral Mucosa: Moist Neck: Normal ROM, Supple Cardiovascular: Rhythm Regular, No JVD Respiratory: Normal Breath Sounds, No Rales, No Rhonchi, No Wheezing Gastrointestinal/Abdominal: Soft, No Tenderness, No Guarding, No Rebound Extremity: No Tenderness, Capillary Refill (<2 seconds), Other (AV fistula on right arm) Neurological/Psych: Oriented x3, Normal Speech, Normal Cognition ED Course And Treatment - Laboratory Results Result Diagrams: 01/21/18 13:26 01/21/18 13:26 Lab Interpretation: Normal (ua neg.) ECG: Interpreted By Me ECG Rhythm: Sinus Rhythm ECG Interpretation: Normal, No Changes From Prior (no acute changes) O2 Sat by Pulse Oximetry: 97 (RA) Pulse Ox Interpretation: Normal - Radiology CXR: Interpreted by Me CXR Interpretation: Yes: No Acute Disease - Other Rad abd x 2 X-Ray: Interpreted by Me (+FOS) Reevaluation Time: 14:19 Reassessment Condition: Improved Medical Decision Making Medical Decision Making: normal w/u for constipation in HD pt. Disposition Doctor Will See Patient In The: Office Counseled Patient/Family Regarding: Studies Performed, Diagnosis - Disposition Referrals: Valdez Mccracken MD [Staff Provider] - Disposition: HOME/ ROUTINE Disposition Time: 14:19 Condition: GOOD Additional Instructions: michael un purgante [facility]. UN ESUAVESANTE DIARIO PARA PREVENIR el estrenemiento Cambios de dieta Instructions: Constipation in Adults Forms: [facility] (Italian) Print Language: TURKMEN - Clinical Impression Clinical Impression: Chronic constipation - Scribe Statement The provider has reviewed the documentation as recorded by the Floweribdre Hernandes All medical record entries made by the Scribe were at my direction and personally dictated by me. I have reviewed the chart and agree that the record accurately reflects my personal performance of the history, physical exam, medical decision making, and the department course for this patient. I have also personally directed, reviewed, and agree with the discharge instructions and disposition.
[2018-01-21 13:58] LABS: ALBUMIN 4.4 g/dL (3.5-5.0); CALCIUM 9.6 mg/dl (8.6-10.4)
[2018-01-21 14:06] LABS: TROPONIN I 0.059 ng/mL (0.00-0.120)
[2018-01-21 14:16] VITALS: BP 193/75; PULSE 65; RESP 17; TEMP 98.8
[2018-01-21 14:20] VITALS: O2SAT 97
--- NOTE | 2018-01-21 14:54 | RAD ---
PROCEDURE: Radiographs of the chest and abdomen (obstructive series) HISTORY: Abdominal pain. COMPARISON: No prior. TECHNIQUE: AP radiograph of the chest, with upright and supine radiographs of the abdomen. FINDINGS: CHEST: Lungs: Clear. Cardiovascular: No radiographic findings to suggest acute or significant cardiovascular disease. Right subclavian SVC stent identified. Pleura: No pleural fluid. No pneumothorax. Other findings: None. ABDOMEN AND PELVIS: Bowel: Constipation without fecal impaction or obstruction. Free air: None. Bones: Unremarkable. Other findings: None. IMPRESSION: No acute findings related to/accounting for the clinical presentation. Concordant results with the preliminary interpretation rendered by the emergency department physician procedure.
--- NOTE | 2018-01-23 12:05 | CARD ---
APPROVED REPORT EKG Measurement Heart [id number] [id number] <Conclusion> Normal sinus rhythm Left axis deviation Voltage criteria for left ventricular hypertrophy Cannot rule out Septal infarct, age undetermined T wave abnormality, consider lateral ischemia Abnormal ECG
== END 2018-01-21 14:40 | disposition home or self-care (01) ==
LOC: C.ER 10:27
DX: K59.00 Constipation, unspecified (principal); I12.0 Hypertensive chronic kidney disease with stage 5 chronic kidney disease or end stage renal disease; E11.22 Type 2 diabetes mellitus with diabetic chronic kidney disease; N18.6 End stage renal disease; Z99.2 Dependence on renal dialysis

== ENCOUNTER 2018-04-09 12:54 | Emergency (ER) | payer MEDICARE, OTHER ==
[2018-04-09 12:54] VITALS: BMI 21.4
[2018-04-09 13:13] VITALS: TEMP 97.8
[2018-04-09 13:32] LABS: BASO % 0.7 % (0.0-2.0); EOS # 0.1 K/uL (0.0-0.7); EOS % 1.6 % (0.0-4.0); HEMOGLOBIN 11.4 g/dL (11.0-16.0); LYMPH # 1.5 K/uL (1.0-4.3); LYMPH % 29.8 % (20.0-40.0); MEAN CELL VOLUME 84.8 fL (81.0-99.0); MEAN CORPUSCULAR HGB CONC 33.1 g/dL (33.0-37.0); MEAN PLATELET VOLUME 9.2 fL (7.2-11.7); MONO # 0.6 K/uL (0.0-0.8); NEUT # 2.8 K/uL (1.8-7.0); NEUT % 55.9 % (50.0-75.0); NRBC % 0.1 % (0.0-2.0); RBC 4.07 Mil/uL (3.80-5.20); RED CELL DISTRIBUTION WIDTH 15.6 % (11.5-14.5)
[2018-04-09 13:39] LABS: PROTHROMBIN TIME 11.4 SECONDS (9.7-12.2)
[2018-04-09 13:43] LABS: ALB/GLOB RATIO 1.3 (1.0-2.1); ALBUMIN 3.8 g/dL (3.5-5.0); CALCIUM 8.6 mg/dl (8.6-10.4)
[2018-04-09 13:55] LABS: CK-MB 1.77 ng/mL (0.0-3.38); TROPONIN I 0.049 ng/mL (0.00-0.120)
--- NOTE | 2018-04-09 14:02 | RAD ---
PROCEDURE: CHEST RADIOGRAPH, 1 VIEW HISTORY: SOB COMPARISON: Chest radiograph dated 10/08/2017. FINDINGS: LUNGS: Pulmonary vascular congestion. No focal consolidation. PLEURA: No pneumothorax or pleural fluid seen. CARDIOVASCULAR: No sclerotic aortic calcifications. Cardiomediastinal silhouette stably urged. OSSEOUS STRUCTURES: Unchanged. VISUALIZED UPPER ABDOMEN: Normal. OTHER FINDINGS: Vascular stent redemonstrated. IMPRESSION: Pulmonary vascular congestion. No focal consolidation or pleural effusion.
--- NOTE | 2018-04-09 14:39 | C.PDOC ---
History Of Present Illness 82 y/o female BIBA from hemodialysis for evaluation of sudden onset of chest pain today. Patient states that the chest pain is intermittent, not associated with SOB and nonradiating at this time. Patient was given with Nitro and Aspirin in field with improvement of her chest pain. Patient denies SOB, fever/ chills, cough, palpitations, headache, dizziness . Of note, patient's dialysis treatment was completed today. Time Seen by Provider: 04/09/18 13:06 Chief Complaint (Nursing): Chest Pain History Per: Patient History/Exam Limitations: no limitations Onset/Duration Of Symptoms: Hrs Current Symptoms Are (Timing): Better Severity: Moderate Quality: "Pain" Past Medical History Reviewed: Historical Data, Nursing Documentation, Vital Signs Vital Signs: Last Vital Signs Temp 97.8 F 04/09/18 13:10 Pulse 71 04/09/18 17:09 Resp 25 H 04/09/18 17:09 BP 147/84 04/09/18 17:09 Pulse Ox 99 04/09/18 18:53 - Medical History PMH: Anxiety, Arthritis, Asthma, Bronchitis, Cardia Arrhythmia, CHF, COPD ( Emphysema,), Dementia, Depression, Diabetes (type 2), Emphysema, Fractures, HTN , Hypercholesterolemia, Migraine, End Stage Renal Disease, Chronic Kidney Disease, TIA Other Surgeries: Hx of surgeries - [facility] Procedures (10/08/17) ASSISTANCE WITH RESPIRATORY VENTILATION, 24-96 HRS, CPAP (11/01/16) INSERTION OF INFUSION DEV INTO INF VENA CAVA, PERC APPROACH (10/06/15) PERFORMANCE OF URINARY FILTRATION, MULTIPLE (12/24/16) PERFORMANCE OF URINARY FILTRATION, SINGLE (11/01/16) Family History: States: No Known Family Hx - Social History Hx Tobacco Use: No Hx Alcohol Use: No Hx Substance Use: No - Immunization History Hx Tetanus Toxoid Vaccination: Yes Hx Influenza Vaccination: Yes (06/2015) Hx Pneumococcal Vaccination: Yes (2014) Review Of Systems Constitutional: Negative for: Fever, Chills Cardiovascular: Positive for: Chest Pain. Negative for: Palpitations, Orthopnea Respiratory: Negative for: Cough, Shortness of Breath Gastrointestinal: Negative for: Nausea, Vomiting, Abdominal Pain Neurological: Negative for: Weakness, Numbness, Headache, Dizziness Physical Exam - Physical Exam Appears: Well, Non-toxic, No Acute Distress Skin: Normal Color, Warm, Dry Eye(s): bilateral: Normal Inspection Oral Mucosa: Moist Neck: Supple Cardiovascular: Rhythm Regular, Murmur (2/6 holosystolic murmur) Respiratory: Normal Breath Sounds, No Rales, No Rhonchi, No Wheezing Gastrointestinal/Abdominal: Normal Exam, Bowel Sounds, Soft, No Tenderness, No Guarding, No Rebound, Other (obese) Extremity: Normal ROM, Other (AV fistula on right arm with palpable thrill, mild pitting edema of bilateral lower extremities) Neurological/Psych: Oriented x3 ED Course And Treatment - Laboratory Results Result Diagrams: 04/09/18 13:27 04/09/18 13:27 ECG: Interpreted By Me ECG Rhythm: Sinus Rhythm ECG Interpretation: Abnormal Interpretation Of ECG: NSR with left axis deviation, T wave inversion in Leads AVL, V5, and V6, and no acute ST changes Rate From EC (bpm) O2 Sat by Pulse Oximetry: 99 (RA) Pulse Ox Interpretation: Normal - Radiology CXR: Interpreted by Me, Viewed By Me CXR Interpretation: Yes: No Acute Disease, Other (pulm vascular congestion). No : Infiltrates Progress Note: Blood work, EKG, and CXR ordered and reviewed. Reevaluation Time: 15:15 Reassessment Condition: Improved (On reassessment, patient is resting comfortably and states her chest pain has resolved. Explained to patient she has multiple cardiac risk factors, and I would like to admit her to hospital. Patient has refused, and has signed out against mty medical advice. She understands that by doing so, she risks worsening of her current condition, heart attack and possibly even . Patient instructed to follow up with PMD in 1-2 days, and understands she should return to ED immediately if her symptoms return/worsen.) Disposition Counseled Patient/Family Regarding: Studies Performed, Diagnosis, Need For Followup - Disposition Referrals: Valdez Mccracken MD [Staff Provider] - Disposition: HOME/ ROUTINE Disposition Time: 15:15 Condition: STABLE Additional Instructions: FOLLOW UP WITH DR MCCRACKEN IN 1-2 DAYS RETURN TO EMERGENCY ROOM IF SYMPTOMS WORSEN/RETURN SEGUIMIENTO CON DR MCCRACKEN EN 1-2 LANIER REGRESAR AL AKASH DE EMERGENCIA SI LOS SNTOMAS EMPEORAN / REGRESA Instructions: Chest Pain (DC), Leaving Against Medical Advice Forms: [facility] (Sierra Leonean), (AMA) Informed Refusal Print Language: DANISH - Clinical Impression Clinical Impression: Chest pain in adult, Left against medical advice - Scribe Statement The provider has reviewed the documentation as recorded by the Scribe Alie Tam Provider Attestation: All medical record entries made by the Scribe were at my direction and personally dictated by me. I have reviewed the chart and agree that the record accurately reflects my personal performance of the history, physical exam, medical decision making, and the department course for this patient. I have also personally directed, reviewed, and agree with the discharge instructions and disposition.
[2018-04-09 17:17] VITALS: BP 147/84; PULSE 71; RESP 25
[2018-04-09 18:52] VITALS: O2SAT 99
== END 2018-04-09 18:11 | disposition home or self-care (01) ==
LOC: C.ER 12:54
DX: R07.9 Chest pain, unspecified (principal)

== ENCOUNTER 2018-07-07 09:53 | Emergency (ER) | payer MEDICARE, OTHER ==
[2018-07-07 09:54] VITALS: BMI 21.4
[2018-07-07 11:41] LABS: VENOUS BLOOD GAS BASE EXCESS 4.2 mmol/L (0.0-2.0); VENOUS BLOOD GAS PCO2 55 mmHg (40-60); VENOUS BLOOD GAS PO2 16 mm/Hg (30-55); VENOUS BLOOD PH 7.36 (7.32-7.43)
--- NOTE | 2018-07-07 11:53 | C.PDOC ---
History Of Present Illness 82-year-old female, PMHx includes dementia and ESRD, presents to the emergency department with complaints of altered mental status. Patient completed dialysis today and became acutely more confused, and was complaining of dizziness. EMS called and pt was brought to ED for evaluation. <Tawanna Cardona - Last Filed: 07/10/18 01:16> History Per: Patient, EMS <Tawanna Cardona - Last Filed: 07/10/18 01:16> <Frances Kaur - Last Filed: 07/12/18 02:33> Time Seen by Provider: 07/07/18 10:03 Chief Complaint (Nursing): Altered Mental Status Past Medical History Reviewed: Historical Data, Nursing Documentation, Vital Signs Vital Signs: Last Vital Signs Temp 97.7 F 07/07/18 09:55 Pulse 70 07/07/18 09:55 Resp 18 07/07/18 09:55 BP 156/54 H 07/07/18 09:55 Pulse Ox 100 07/07/18 09:55 - Medical History PMH: Anxiety, Arthritis, Asthma, Bronchitis, Cardia Arrhythmia, CHF, COPD (Emphysema,), Dementia, Depression, Diabetes (type 2), Emphysema, Fractures, HTN, Hypercholesterolemia, Migraine, End Stage Renal Disease, Chronic Kidney Disease, TIA - [facility] Procedures (10/08/17) ASSISTANCE WITH RESPIRATORY VENTILATION, 24-96 HRS, CPAP (11/01/16) INSERTION OF INFUSION DEV INTO INF VENA CAVA, PERC APPROACH (10/06/15) PERFORMANCE OF URINARY FILTRATION, MULTIPLE (12/24/16) PERFORMANCE OF URINARY FILTRATION, SINGLE (11/01/16) Family History: States: No Known Family Hx - Social History Hx Tobacco Use: No Hx Alcohol Use: No Hx Substance Use: No - Immunization History Hx Tetanus Toxoid Vaccination: Yes Hx Influenza Vaccination: Yes (06/2015) Hx Pneumococcal Vaccination: Yes (2014) <Tawanna Cardona - Last Filed: 07/10/18 01:16> Vital Signs: Last Vital Signs Temp 98.2 F 07/07/18 14:27 Pulse 78 07/07/18 14:27 Resp 18 07/07/18 14:27 BP 186/74 H 07/07/18 14:27 Pulse Ox 100 07/10/18 01:17 - [facility] Procedures (10/08/17) ASSISTANCE WITH RESPIRATORY VENTILATION, 24-96 HRS, CPAP (11/01/16) INSERTION OF INFUSION DEV INTO INF VENA CAVA, PERC APPROACH (10/06/15) PERFORMANCE OF URINARY FILTRATION, MULTIPLE (12/24/16) PERFORMANCE OF URINARY FILTRATION, SINGLE (11/01/16) <Frances Kaur - Last Filed: 07/12/18 02:33> Review Of Systems Constitutional: Negative for: Fever, Chills Cardiovascular: Negative for: Chest Pain, Palpitations Respiratory: Negative for: Shortness of Breath Gastrointestinal: Negative for: Nausea, Vomiting Neurological: Positive for: Dizziness <Tawanna Cardona - Last Filed: 07/10/18 01:16> Physical Exam - Physical Exam Appears: Non-toxic, No Acute Distress, Chronically Ill Skin: Warm, Dry, No Rash Head: Atraumatic, Normacephalic Eye(s): bilateral: Normal Inspection Nose: Normal Oral Mucosa: Moist Lips: Normal Appearing Neck: Normal ROM Cardiovascular: Rhythm Regular, No Murmur Respiratory: Normal Breath Sounds, No Accessory Muscle Use Gastrointestinal/Abdominal: Soft, No Tenderness Back: Normal Inspection Extremity: Normal ROM, No Deformity Neurological/Psych: Oriented x3, Normal Speech <Tawanna Cardona - Last Filed: 07/10/18 01:16> ED Course And Treatment - Laboratory Results Result Diagrams: 07/07/18 11:48 07/07/18 12:16 O2 Sat by Pulse Oximetry: 100 (on RA) Pulse Ox Interpretation: Normal (RA) <Tawanna Cardona - Last Filed: 07/10/18 01:16> - Laboratory Results Result Diagrams: 07/07/18 11:48 07/07/18 12:16 <Frances Kaur - Last Filed: 07/12/18 02:33> Medical Decision Making Medical Decision Making: The case was discussed with the patient's daughter who states that the patient is always like that after dialysis. Labs are WNLs, urine was not collected as the patient is ESRD and does not make urine at this time. Patient is answering questions appropriately, has no complaints with a normal p hysical exam, and is currently A&Ox 3 at this time. <Tawanna Cardona Filed: 07/10/18 01:16> Disposition - Disposition Disposition Time: 14:00 - POA Present On Arrival: None <Tawanna Cardona - Last Filed: 07/10/18 01:16> <Frances Kaur - Last Filed: 07/12/18 02:33> - Disposition Disposition: HOME/ ROUTINE Condition: STABLE Additional Instructions: return if worsened. Instructions: End Stage Kidney Disease Forms: [facility] (Kosovan) - Clinical Impression Clinical Impression: ESRD (end stage renal disease) on dialysis - Scribe Statement The provider has reviewed the documentation as recorded by the Scribe (Leydi Means) All medical record entries made by the Scribe were at my direction and per sonally dictated by me. I have reviewed the chart and agree that the record accurately reflects my personal performance of the history, physical exam, medical decision making, and the department course for this patient. I have also personally directed, reviewed, and agree with the discharge instructions and disposition. <Tawanna Cardona - Last Filed: 07/10/18 01:16> - PA / ORDER TAKERS SUPERVISOR / Resident Statement / has reviewed & agrees with the documentation as recorded. <Frances Kaur - Last Filed: 07/12/18 02:33>
[2018-07-07 11:54] LABS: BASO % 0.6 % (0.0-2.0); EOS % 0.3 % (0.0-4.0); HEMOGLOBIN 12.3 g/dL (11.0-16.0); LYMPH # 1.3 K/uL (1.0-4.3); LYMPH % 18.6 % (20.0-40.0); MEAN CELL VOLUME 83.9 fL (81.0-99.0); MEAN CORPUSCULAR HEMOGLOBIN 27.9 pg (27.0-31.0); MEAN CORPUSCULAR HGB CONC 33.3 g/dL (33.0-37.0); MEAN PLATELET VOLUME 9.8 fL (7.2-11.7); MONO # 0.7 K/uL (0.0-0.8); MONO % 10.7 % (0.0-10.0); NEUT # 4.8 K/uL (1.8-7.0); NEUT % 69.8 % (50.0-75.0); NRBC % 0.1 % (0.0-2.0); RBC 4.39 Mil/uL (3.80-5.20); RED CELL DISTRIBUTION WIDTH 14.2 % (11.5-14.5); WHITE BLOOD COUNT 6.9 K/uL (4.8-10.8)
[2018-07-07 12:07] LABS: INR 1.1; PROTHROMBIN TIME 11.6 SECONDS (9.7-12.2)
[2018-07-07 12:36] LABS: ALB/GLOB RATIO 1.3 (1.0-2.1); ALBUMIN 4.4 g/dL (3.5-5.0); CALCIUM 9.7 mg/dl (8.6-10.4)
[2018-07-07 12:46] LABS: TROPONIN I 0.086 ng/mL (0.00-0.120)
--- NOTE | 2018-07-07 13:13 | RAD ---
Date of service: 07/07/2018 HISTORY: Sepsis Patient COMPARISON: 04/09/2018. FINDINGS: LUNGS: The lungs are clear. PLEURA: No significant pleural effusion identified, no pneumothorax apparent. CARDIOVASCULAR: Normal. OSSEOUS STRUCTURES: No significant abnormalities. VISUALIZED UPPER ABDOMEN: Normal. OTHER FINDINGS: There is a right subclavian endovascular stent. IMPRESSION: No active pulmonary disease.
[2018-07-07] MEDS: (Novolin R) Insulin Human Regular 100 units/ml vial SC ONE (14:21)
[2018-07-07] MEDS ORDERED: (Novolin R) Insulin Human Regular 100 units/ml vial ONE (14:22)
[2018-07-07 14:27] VITALS: BP 186/74; PULSE 78; RESP 18; TEMP 98.2
--- NOTE | 2018-07-09 12:45 | CARD ---
APPROVED REPORT Date of service: 07/07/2018 EKG Measurement Heart [id number] MI [id number] [id number] <Conclusion> Normal sinus rhythm Possible Left atrial enlargement Left axis deviation Left ventricular hypertrophy with repolarization abnormality Abnormal ECG
[2018-07-10 01:15] VITALS: O2SAT 100
== END 2018-07-07 14:52 | disposition home or self-care (01) ==
LOC: C.ER 09:53
DX: E11.22 Type 2 diabetes mellitus with diabetic chronic kidney disease (principal); N18.6 End stage renal disease; Z99.2 Dependence on renal dialysis

== ENCOUNTER 2018-08-12 08:34 | Inpatient (IN) | payer OTHER ==
[2018-08-12 08:35] VITALS: BMI 21.4
--- NOTE | 2018-08-12 08:53 | C.PDOC ---
History Of Present Illness Patient SALAS from home, aparently found on the floor outosde of her apartment confused. Patient is awake & alert but altered, unable to provide history. As per EMS, patient missed her dialysis yesterday because she "was not feeling well". PMhx of ESRD on HD, CHF, COPD, DM II, dementia, anxiety/depression, Time Seen by Provider: 08/12/18 08:37 Chief Complaint (Nursing): Altered Mental Status History Per: EMS Onset/Duration Of Symptoms: Unknown Onset Of Symptoms: Cannot Confirm Onset Past Medical History Reviewed: Historical Data, Nursing Documentation, Vital Signs Vital Signs: Last Vital Signs Temp 99.6 F 08/12/18 08:39 Pulse 109 H 08/12/18 08:39 Resp 26 H 08/12/18 08:39 BP 148/88 08/12/18 08:39 Pulse Ox 94 L 08/12/18 08:39 - Medical History PMH: Anxiety, Arthritis, Asthma, Bronchitis, Cardia Arrhythmia, CHF, COPD (Emphysema,), Dementia, Depression, Diabetes (type 2), Emphysema, Fractures, HTN, Hypercholesterolemia, Migraine, End Stage Renal Disease, Chronic Kidney Disease, TIA - [facility] Procedures (10/08/17) ASSISTANCE WITH RESPIRATORY VENTILATION, 24-96 HRS, CPAP (11/01/16) INSERTION OF INFUSION DEV INTO INF VENA CAVA, PERC APPROACH (10/06/15) PERFORMANCE OF URINARY FILTRATION, MULTIPLE (12/24/16) PERFORMANCE OF URINARY FILTRATION, SINGLE (11/01/16) Family History: States: No Known Family Hx - Social History Hx Tobacco Use: No Hx Alcohol Use: No Hx Substance Use: No - Immunization History Hx Tetanus Toxoid Vaccination: Yes Hx Influenza Vaccination: Yes (06/2015) Hx Pneumococcal Vaccination: Yes (2014) Review Of Systems Review Of Systems: ROS cannot be obtained secondary to pt's inabilty to answer questions. (poor historian, confused) Physical Exam - Physical Exam Appears: Non-toxic, Chronically Ill Skin: Normal Color, Warm, Dry Head: Atraumatic, Normacephalic Oral Mucosa: Dry Cardiovascular: Rhythm Regular (tachycardic ) Respiratory: Rales (right base ) Gastrointestinal/Abdominal: Normal Exam, Bowel Sounds, Soft, No Tenderness, Other (obese) Extremity: Other (rguth arm AV fistula with palpable thrill) ED Course And Treatment O2 Sat by Pulse Oximetry: 94 Disposition - Disposition Forms: [facility] (Kittitian)
[2018-08-12 09:02] LABS: VENOUS BLOOD GAS BASE EXCESS -3.3 mmol/L (0.0-2.0); VENOUS BLOOD GAS PCO2 36 mmHg (40-60); VENOUS BLOOD GAS PO2 60 mm/Hg (30-55); VENOUS BLOOD PH 7.38 (7.32-7.43)
[2018-08-12] MEDS ORDERED: Sodium Chloride 0.9% 250 ML IV ONE ×2 (09:05→09:43)
[2018-08-12 09:10] LABS: BASO % 0.9 % (0.0-2.0); EOS % 0.4 % (0.0-4.0); HEMOGLOBIN 11.8 g/dL (11.0-16.0); LYMPH # 0.5 K/uL (1.0-4.3); LYMPH % 13.2 % (20.0-40.0); MEAN CORPUSCULAR HEMOGLOBIN 27.8 pg (27.0-31.0); MEAN CORPUSCULAR HGB CONC 32.1 g/dL (33.0-37.0); MEAN PLATELET VOLUME 10.5 fL (7.2-11.7); MONO # 0.3 K/uL (0.0-0.8); MONO % 9.3 % (0.0-10.0); NEUT # 2.6 K/uL (1.8-7.0); NEUT % 76.2 % (50.0-75.0); NRBC % 0.1 % (0.0-2.0); RBC 4.26 Mil/uL (3.80-5.20); RED CELL DISTRIBUTION WIDTH 15.9 % (11.5-14.5)
[2018-08-12 09:11] LABS: MEAN CELL VOLUME 86.5 fL (81.0-99.0); WHITE BLOOD COUNT 3.4 K/uL (4.8-10.8)
[2018-08-12 09:50] LABS: ALB/GLOB RATIO 1.4 (1.0-2.1); ALBUMIN 4.3 g/dL (3.5-5.0); CALCIUM 10.1 mg/dl (8.6-10.4); CK-MB 2.2 ng/mL (0.0-3.38)
[2018-08-12] MEDS ORDERED: (Novolin R) Insulin Human Regular 100 units/ml vial IVP ONE (09:50)
--- NOTE | 2018-08-12 09:55 | CT ---
Date of service: 08/12/2018 PROCEDURE: CT HEAD WITHOUT CONTRAST. HISTORY: ams COMPARISON: 10/08/2017 TECHNIQUE: Axial computed tomography images were obtained through the head/brain without intravenous contrast. Radiation dose: Total exam DLP = 915.42 mGy-cm. This CT exam was performed using one or more of the following dose reduction techniques: Automated exposure control, adjustment of the mA and/or kV according to patient size, and/or use of iterative reconstruction technique. FINDINGS: HEMORRHAGE: No intracranial hemorrhage. BRAIN: No mass effect or edema. Cerebral atrophy-similar. Mild chronic appearing deep white matter microvascular ischemic changes-similar. Incidental similar-appearing bilateral basal ganglionic calcifications VENTRICLES: Unremarkable. No hydrocephalus. CALVARIUM: Unremarkable. PARANASAL SINUSES: Unremarkable as visualized. No significant inflammatory changes. MASTOID AIR CELLS: Unremarkable as visualized. No inflammatory changes. OTHER FINDINGS: Sensitive atherosclerotic vascular calcifications vertebrobasilar and supraclinoid internal carotid arteries. IMPRESSION: No interval intracranial hemorrhage or mass effect. Cerebral atrophy and mild chronic appearing deep white matter microvascular ischemic changes-all similar appearing.
[2018-08-12] MEDS ORDERED: (Novolin R) Insulin Human Regular 100 units/ml vial ONE ×2 (10:02→11:40)
[2018-08-12 10:06] LABS: TROPONIN I 0.143 ng/mL (0.00-0.120)
[2018-08-12] MEDS ORDERED: Aspirin 325 mg EC Tablets PO ONE (10:45)
[2018-08-12] MEDS ORDERED: (Novolin R) Insulin Human Regular 100 units/ml vial IVP STA (10:57)
--- NOTE | 2018-08-12 10:59 | RAD ---
Date of service: 08/12/2018 PROCEDURE: CHEST RADIOGRAPH, 1 VIEW HISTORY: ams COMPARISON: 07/07/2018 FINDINGS: LUNGS: Shallow lung volumes. Overall increased opacity perceived over left dustin thorax-probably due to summation heart and soft tissues. Left hemidiaphragm contour largely still maintained PLEURA: No pneumothorax. Small left pleural effusion possible CARDIOVASCULAR: There is absence of aortic atherosclerotic calcification on x-ray. Cardiomegaly-similar. Probable mild pulmonary venous congestion-even allowing for shallow volumes. OSSEOUS STRUCTURES: Moderate thoracic spondylosis. Bilateral shoulder arthrosis. Possible remote trauma to right shoulder. VISUALIZED UPPER ABDOMEN: Normal. OTHER FINDINGS: None. IMPRESSION: Shallow lung volumes somewhat limiting optimal evaluation. Nevertheless cardiomegaly and mild pulmonary venous congestion-probably both some extent chronic findings are suspect. Left pleural effusion possible. Other findings as above.
[2018-08-12] MEDS ORDERED: (Novolog) Insulin Aspart, Recombinant 100 u/ml 10 ml vial SC SCH ×2 (11:30→16:30)
[2018-08-12] MEDS ORDERED: Sodium Chloride 0.9% 1,000 ML ONE (12:09)
[2018-08-12] MEDS ORDERED: Sodium Chloride 0.9% 1,000 ML IV SCH (12:15)
[2018-08-12] MEDS: (Novolog) Insulin Aspart, Recombinant 100 u/ml 10 ml vial SC SCH ×3 (16:31→21:07)
[2018-08-12] MEDS: Albuterol 0.083% Inhal Sol (2.5 mg/3 mL) UD INH SCH (19:45)
[2018-08-12] MEDS: (Lantus) Insulin Glargine, Recombinant SC SCH (21:43)
[2018-08-12] MEDS ORDERED: (Lantus) Insulin Glargine, Recombinant SC SCH (22:00)
[2018-08-12] MEDS: Sodium Chloride 0.9% 1,000 ML IV SCH (22:23)
--- NOTE | 2018-08-12 22:32 | CP.PCM.HP ---
History of Present Illness - History of Present Illness History of Present Illness: 82 -year-old female who is found on the floor in [facility] by neighbors. EMS was called and patient was found to be dazed and confused. patient was transported to the [facility] emergency room for evaluation. patient was found to have a blood sugar of 757. She was given IV fluids and insulin by the ER physician. Patient was admitted and consultation with endocrinology was requested. Present on Admission - Present on Admission Any Indicators Present on Admission: No History of DVT/PE: No History of Uncontrolled Diabetes: No Urinary Catheter: No Decubitus Ulcer Present: No History Surgical Site Infection Following: None Review of Systems - Review of Systems Systems not reviewed;Unavailable: Altered Mental Status - Constitutional Constitutional: Fatigue - EENT Eyes: Blurred Vision - Cardiovascular Cardiovascular: Dyspnea on Exertion - Gastrointestinal Gastrointestinal: Nausea - Reproductive: Female Reproductive:Female: Post Menopausal - Musculoskeletal Musculoskeletal: Arthralgias - Integumentary Integumentary: Dry Skin - Neurological Neurological: Memory Loss - Psychiatric Psychiatric: Depression Past Patient History - Infectious Disease Hx of Infectious Diseases: None - Tetanus Immunizations Tetanus Immunization: Unknown, Up to Date - Past Medical History & Family History Past Medical History?: Yes - Past Social History Smoking Status: Never Smoked Chewing Tobacco Use: No Cigar Use: No Alcohol: None Drugs: Denies Home Situation {Lives}: Alone - CARDIAC Hx Cardiac Disorders: Yes Hx Cardia Arrhythmia: Yes Hx Congestive Heart Failure: Yes Hx Hypercholesterolemia: Yes Hx Hypertension: Yes Hx Hypotension: Yes - PULMONARY Hx Respiratory Disorders: Yes Hx Asthma: Yes Hx Bronchitis: Yes Hx Chronic Obstructive Pulmonary Disease (COPD): Yes (Emphysema,) Hx Emphysema: Yes - NEUROLOGICAL Hx Neurological Disorder: Yes Hx Dementia: Yes Hx Migraine: Yes Hx Transient Ischemic Attacks (TIA): Yes - HEENT Hx HEENT Problems: Yes Hx Blind: Yes (Left eye.) - RENAL Hx Chronic Kidney Disease: Yes Date of Last Dialysis Treatment: 08/08/18 - ENDOCRINE/METABOLIC Hx Endocrine Disorders: Yes Hx Diabetes Mellitus Type 2: Yes - HEMATOLOGICAL/ONCOLOGICAL Hx Blood Disorders: No - INTEGUMENTARY Hx Dermatological Problems: Yes Hx Cellulitis: Yes Hx Eczema: Yes - MUSCULOSKELETAL/RHEUMATOLOGICAL Hx Musculoskeletal Disorders: Yes Hx Arthritis: Yes Hx Falls: Yes Hx Fractures: Yes - GASTROINTESTINAL Hx Gastrointestinal Disorders: Yes Hx Gastroesophageal Reflux: Yes Hx Hemorrhoids: Yes - GENITOURINARY/GYNECOLOGICAL Hx Genitourinary Disorders: Yes Hx Urinary Tract Infection: Yes - PSYCHIATRIC Hx Psychophysiologic Disorder: Yes Hx Anxiety: Yes Hx Depression: Yes Hx Substance Use: No - SURGICAL HISTORY Hx Surgeries: Yes Hx Arteriovenous Shunt: Yes (right arm) - ANESTHESIA Hx Anesthesia: Yes Hx Anesthesia Reactions: No Hx Malignant Hyperthermia: No Meds Allergies/Adverse Reactions: Allergies Allergy/AdvReac Type Severity Reaction Status Date / Time No Known Allergies Allergy Verified 04/09/18 13:05 Physical Exam - Constitutional Appears: Chronically Ill - Head Exam Head Exam: NORMOCEPHALIC - Eye Exam Eye Exam: PERRL Pupil Exam: NORMAL ACCOMODATION - ENT Exam ENT Exam: Mucous Membranes Dry - Neck Exam Neck exam: Positive for: Normal Inspection - Respiratory Exam Respiratory Exam: Decreased Breath Sounds - Cardiovascular Exam Cardiovascular Exam: REGULAR RHYTHM - GI/Abdominal Exam GI & Abdominal Exam: Hyperactive Bowel Sounds - Rectal Exam Rectal Exam: Deferred - Exam External exam: NORMAL EXTERNAL EXAM - Back Exam Back exam: NORMAL INSPECTION - Neurological Exam Neurological exam: Altered - Psychiatric Exam Psychiatric exam: Depressed - Skin Skin Exam: Dry Results - Vital Signs Recent Vital Signs: Last Vital Signs Temp 97.8 F 08/12/18 18:58 Pulse 97 H 08/12/18 18:58 Resp 16 08/12/18 18:58 BP 133/66 08/12/18 18:58 Pulse Ox 97 08/12/18 18:58 - Labs Result Diagrams: 08/12/18 09:00 08/12/18 17:09 Labs: Laboratory Results - last 24 hr 08/12/18 08/12/18 08/12/18 08:37 08:55 09:00 WBC 3.4 L D RBC 4.26 Hgb 11.8 Hct 36.9 MCV 86.5 D MCH 27.8 MCHC 32.1 L RDW 15.9 H Plt Count 188 MPV 10.5 Neut % (Auto) 76.2 H Lymph % (Auto) 13.2 L [place] % (Auto) 9.3 Eos % (Auto) 0.4 Baso % (Auto) 0.9 Neut # (Auto) 2.6 Lymph # (Auto) 0.5 L [place] # (Auto) 0.3 Eos # (Auto) 0.0 Baso # (Auto) 0.0 pO2 60 H VBG pH 7.38 VBG pCO2 36 L VBG HCO3 22.2 VBG Total CO2 22.4 VBG O2 Sat (Calc) 94.6 H VBG Base Excess -3.3 L VBG Potassium 4.7 Sodium 147.0 Chloride 112.0 H Glucose > 750 H* D Lactate 1.4 FiO2 21.0 Crit Value Called To Vincent patel Crit Value Called By Kash martin Crit Value Read Back Y Blood Gas Notified Time 902 Potassium Carbon Dioxide Anion Gap BUN Creatinine Est GFR ( Amer) Est GFR (Non-Af Amer) POC Glucose (mg/dL) > 500 H* Random Glucose Serum Osmolality Calcium Total Bilirubin AST ALT Alkaline Phosphatase Total Creatine Kinase CK-MB (Mass) Troponin I Total Protein Albumin Globulin Albumin/Globulin Ratio Venous Blood Potassium 4.7 B-Hydroxybutyrate 08/12/18 08/12/18 08/12/18 09:00 09:44 10:46 WBC RBC Hgb Hct MCV MCH MCHC RDW Plt Count MPV Neut % (Auto) Lymph % (Auto) [place] % (Auto) Eos % (Auto) Baso % (Auto) Neut # (Auto) Lymph # (Auto) [place] # (Auto) Eos # (Auto) Baso # (Auto) pO2 VBG pH VBG pCO2 VBG HCO3 VBG Total CO2 VBG O2 Sat (Calc) VBG Base Excess VBG Potassium Sodium 142 Chloride 106 Glucose Lactate FiO2 Crit Value Called To Crit Value Called By Crit Value Read Back Blood Gas Notified Time Potassium 5.5 H Carbon Dioxide 21 L Anion Gap 21 H BUN 75 H Creatinine 4.5 H Est GFR ( Amer) 11 Est GFR (Non-Af Amer) 9 POC Glucose (mg/dL) 481 H* Random Glucose 748 H* D Serum Osmolality 370 H Calcium 10.1 Total Bilirubin 0.9 AST 32 ALT 11 Alkaline Phosphatase 127 H D Total Creatine Kinase 175 H CK-MB (Mass) 2.20 Troponin I 0.1430 H* Total Protein 7.4 Albumin 4.3 Globulin 3.1 Albumin/Globulin Ratio 1.4 Venous Blood Potassium B-Hydroxybutyrate 1.73 H 08/12/18 08/12/18 08/12/18 10:47 12:31 16:28 WBC RBC Hgb Hct MCV MCH MCHC RDW Plt Count MPV Neut % (Auto) Lymph % (Auto) [place] % (Auto) Eos % (Auto) Baso % (Auto) Neut # (Auto) Lymph # (Auto) [place] # (Auto) Eos # (Auto) Baso # (Auto) pO2 VBG pH VBG pCO2 VBG HCO3 VBG Total CO2 VBG O2 Sat (Calc) VBG Base Excess VBG Potassium Sodium Chloride Glucose Lactate FiO2 Crit Value Called To Crit Value Called By Crit Value Read Back Blood Gas Notified Time Potassium Carbon Dioxide Anion Gap BUN Creatinine Est GFR ( Amer) Est GFR (Non-Af Amer) POC Glucose (mg/dL) > 500 H* 472 H* 457 H* Random Glucose Serum Osmolality Calcium Total Bilirubin AST ALT Alkaline Phosphatase Total Creatine Kinase CK-MB (Mass) Troponin I Total Protein Albumin Globulin Albumin/Globulin Ratio Venous Blood Potassium B-Hydroxybutyrate 08/12/18 08/12/18 17:09 21:06 WBC RBC Hgb Hct MCV MCH MCHC RDW Plt Count MPV Neut % (Auto) Lymph % (Auto) [place] % (Auto) Eos % (Auto) Baso % (Auto) Neut # (Auto) Lymph # (Auto) [place] # (Auto) Eos # (Auto) Baso # (Auto) pO2 VBG pH VBG pCO2 VBG HCO3 VBG Total CO2 VBG O2 Sat (Calc) VBG Base Excess VBG Potassium Sodium 146 Chloride 113 H Glucose Lactate FiO2 Crit Value Called To Crit Value Called By Crit Value Read Back Blood Gas Notified Time Potassium 4.7 Carbon Dioxide 19 L Anion Gap 19 BUN 70 H Creatinine 4.5 H Est GFR ( Amer) 11 Est GFR (Non-Af Amer) 9 POC Glucose (mg/dL) 152 H Random Glucose 484 H* D Serum Osmolality Calcium 10.0 Total Bilirubin AST ALT Alkaline Phosphatase Total Creatine Kinase CK-MB (Mass) Troponin I Total Protein Albumin Globulin Albumin/Globulin Ratio Venous Blood Potassium B-Hydroxybutyrate Assessment & Plan (1) Altered mental status Status: Acute (2) Chronic renal failure Status: Acute (3) Diabetes mellitus Status: Acute Priority: Medium (4) ESRD (end stage renal disease) on dialysis Status: Acute Priority: Medium (5) Elevated troponin I level Status: Acute (6) Uncontrolled diabetes mellitus Status: Acute Priority: Medium
--- NOTE | 2018-08-13 00:28 | CP.PCM.CON ---
History of Present Illness - History of Present Illness History of Present Illness: 82 yo female was found lying in front of her apartment, confused. Brought to the ED at [facility], her blood glucose was 750, TNI: 0.15 BUN: 75 and creatinine : 4.5. She is known to have an IDDM, a HPTN, an ESRD on HD, a senile dementia. She lives alone. She was given Insulin and IVF fluid in the ED. She denies any chest pain, but has not felt well recently and had missed her hemodialysis. A head CT was essentially normal. a CXR was normal. ECG revealed an RSR with LVH and secondary ST-T wave change. Review of Systems - Constitutional Constitutional: Weakness - Neurological Neurological: Confusion - Psychiatric Psychiatric: Confusion Past Patient History - Infectious Disease Hx of Infectious Diseases: None - Tetanus Immunizations Tetanus Immunization: Unknown, Up to Date - Past Medical History & Family History Past Medical History?: Yes - Past Social History Smoking Status: Never Smoked Chewing Tobacco Use: No Cigar Use: No Alcohol: None Drugs: Denies Home Situation {Lives}: Alone - CARDIAC Hx Cardiac Disorders: Yes Hx Cardia Arrhythmia: Yes Hx Congestive Heart Failure: Yes Hx Hypercholesterolemia: Yes Hx Hypertension: Yes Hx Hypotension: Yes - PULMONARY Hx Respiratory Disorders: Yes Hx Asthma: Yes Hx Bronchitis: Yes Hx Chronic Obstructive Pulmonary Disease (COPD): Yes (Emphysema,) Hx Emphysema: Yes - NEUROLOGICAL Hx Neurological Disorder: Yes Hx Dementia: Yes Hx Migraine: Yes Hx Transient Ischemic Attacks (TIA): Yes - HEENT Hx HEENT Problems: Yes Hx Blind: Yes (Left eye.) - RENAL Hx Chronic Kidney Disease: Yes Date of Last Dialysis Treatment: 08/08/18 - ENDOCRINE/METABOLIC Hx Endocrine Disorders: Yes Hx Diabetes Mellitus Type 2: Yes - HEMATOLOGICAL/ONCOLOGICAL Hx Blood Disorders: No - INTEGUMENTARY Hx Dermatological Problems: Yes Hx Cellulitis: Yes Hx Eczema: Yes - MUSCULOSKELETAL/RHEUMATOLOGICAL Hx Musculoskeletal Disorders: Yes Hx Arthritis: Yes Hx Falls: Yes Hx Fractures: Yes - GASTROINTESTINAL Hx Gastrointestinal Disorders: Yes Hx Gastroesophageal Reflux: Yes Hx Hemorrhoids: Yes - GENITOURINARY/GYNECOLOGICAL Hx Genitourinary Disorders: Yes Hx Urinary Tract Infection: Yes - PSYCHIATRIC Hx Psychophysiologic Disorder: Yes Hx Anxiety: Yes Hx Depression: Yes Hx Substance Use: No - SURGICAL HISTORY Hx Surgeries: Yes Hx Arteriovenous Shunt: Yes (right arm) - ANESTHESIA Hx Anesthesia: Yes Hx Anesthesia Reactions: No Hx Malignant Hyperthermia: No Meds Allergies/Adverse Reactions: Allergies Allergy/AdvReac Type Severity Reaction Status Date / Time No Known Allergies Allergy Verified 04/09/18 13:05 - Medications Medications: Current Medications Albuterol Sulfate (Albuterol 0.083% Inhal Luisa (2.5 Mg/3 Ml) Ud) 2.5 mg INH RQ6 [facility] Last Admin: 08/12/18 19:45 Dose: Not Given Aspirin (Aspirin Chewable) 81 mg PO DAILY [facility] Atenolol (Tenormin) 25 mg PO DAILY [facility] Last Admin: 08/12/18 16:30 Dose: 25 mg Clopidogrel Bisulfate (Plavix) 75 mg PO DAILY [facility] Donepezil HCl (Aricept) 10 mg PO HS [facility] Last Admin: 08/12/18 21:43 Dose: 10 mg Famotidine (Pepcid) 20 mg PO DAILY [facility] Hydralazine HCl (Apresoline) 25 mg PO BID [facility] Last Admin: 08/12/18 19:00 Dose: Not Given Sodium Chloride (Sodium Chloride 0.9%) 1,000 mls @ 100 mls/hr IV .Q10H [facility] Last Admin: 08/12/18 22:23 Dose: 100 mls/hr Insulin Aspart (Novolog) 12 unit SC AC [facility] Last Admin: 08/12/18 16:31 Dose: 12 units Insulin Aspart (Novolog) 0 unit SC ACHS [facility] Last Admin: 08/12/18 21:07 Dose: Not Given Insulin Glargine (Lantus) 30 unit SC HS [facility] Last Admin: 08/12/18 21:43 Dose: Not Given Montelukast Sodium (Singulair) 10 mg PO DAILY [facility] Oxybutynin Chloride (Ditropan Tab) 5 mg PO DAILY [facility] Quetiapine Fumarate (Seroquel) 25 mg PO DAILY [facility] Rosuvastatin Calcium (Crestor) 5 mg PO HS [facility] Last Admin: 08/12/18 21:43 Dose: 5 mg Sevelamer Carbonate (Renvela) 800 mg PO TIDCC [facility] Last Admin: 08/12/18 16:31 Dose: 800 mg Vitamin B Complex/Vit C/Folic Acid (Nephro-Marina) 1 tab PO DAILY [facility] Physical Exam - Constitutional Appears: Confused, Chronically Ill - Head Exam Head Exam: NORMAL INSPECTION - Eye Exam Eye Exam: Normal appearance - ENT Exam ENT Exam: Normal Exam - Neck Exam Neck exam: Positive for: Normal Inspection - Respiratory Exam Respiratory Exam: Clear to Auscultation Bilateral, NORMAL BREATHING PATTERN - Cardiovascular Exam Cardiovascular Exam: REGULAR RHYTHM - GI/Abdominal Exam GI & Abdominal Exam: Normal Bowel Sounds, Soft - Rectal Exam Rectal Exam: Deferred - Extremities Exam Extremities exam: Positive for: normal inspection - Back Exam Back exam: NORMAL INSPECTION - Neurological Exam Neurological exam: Alert, Altered - Psychiatric Exam Psychiatric exam: Anxious - Skin Skin Exam: Dry, Intact, Normal Color, Warm Results - Vital Signs Recent Vital Signs: Last Vital Signs Temp 97.8 F 08/12/18 18:58 Pulse 97 H 08/12/18 18:58 Resp 16 08/12/18 18:58 BP 133/66 08/12/18 18:58 Pulse Ox 97 08/12/18 18:58 - Labs Result Diagrams: 08/12/18 09:00 08/12/18 17:09 Labs: Laboratory Results - last 24 hr 08/12/18 08/12/18 08/12/18 08:37 08:55 09:00 WBC 3.4 L D RBC 4.26 Hgb 11.8 Hct 36.9 MCV 86.5 D MCH 27.8 MCHC 32.1 L RDW 15.9 H Plt Count 188 MPV 10.5 Neut % (Auto) 76.2 H Lymph % (Auto) 13.2 L [place] % (Auto) 9.3 Eos % (Auto) 0.4 Baso % (Auto) 0.9 Neut # (Auto) 2.6 Lymph # (Auto) 0.5 L [place] # (Auto) 0.3 Eos # (Auto) 0.0 Baso # (Auto) 0.0 pO2 60 H VBG pH 7.38 VBG pCO2 36 L VBG HCO3 22.2 VBG Total CO2 22.4 VBG O2 Sat (Calc) 94.6 H VBG Base Excess -3.3 L VBG Potassium 4.7 Sodium 147.0 Chloride 112.0 H Glucose > 750 H* D Lactate 1.4 FiO2 21.0 Crit Value Called To Vincent patel Crit Value Called By Kash rt Crit Value Read Back Y Blood Gas Notified Time 902 Potassium Carbon Dioxide Anion Gap BUN Creatinine Est GFR ( Amer) Est GFR (Non-Af Amer) POC Glucose (mg/dL) > 500 H* Random Glucose Serum Osmolality Calcium Total Bilirubin AST ALT Alkaline Phosphatase Total Creatine Kinase CK-MB (Mass) Troponin I Total Protein Albumin Globulin Albumin/Globulin Ratio Venous Blood Potassium 4.7 B-Hydroxybutyrate 08/12/18 08/12/18 08/12/18 09:00 09:44 10:46 WBC RBC Hgb Hct MCV MCH MCHC RDW Plt Count MPV Neut % (Auto) Lymph % (Auto) [place] % (Auto) Eos % (Auto) Baso % (Auto) Neut # (Auto) Lymph # (Auto) [place] # (Auto) Eos # (Auto) Baso # (Auto) pO2 VBG pH VBG pCO2 VBG HCO3 VBG Total CO2 VBG O2 Sat (Calc) VBG Base Excess VBG Potassium Sodium 142 Chloride 106 Glucose Lactate FiO2 Crit Value Called To Crit Value Called By Crit Value Read Back Blood Gas Notified Time Potassium 5.5 H Carbon Dioxide 21 L Anion Gap 21 H BUN 75 H Creatinine 4.5 H Est GFR ( Amer) 11 Est GFR (Non-Af Amer) 9 POC Glucose (mg/dL) 481 H* Random Glucose 748 H* D Serum Osmolality 370 H Calcium 10.1 Total Bilirubin 0.9 AST 32 ALT 11 Alkaline Phosphatase 127 H D Total Creatine Kinase 175 H CK-MB (Mass) 2.20 Troponin I 0.1430 H* Total Protein 7.4 Albumin 4.3 Globulin 3.1 Albumin/Globulin Ratio 1.4 Venous Blood Potassium B-Hydroxybutyrate 1.73 H 08/12/18 08/12/18 08/12/18 10:47 12:31 16:28 WBC RBC Hgb Hct MCV MCH MCHC RDW Plt Count MPV Neut % (Auto) Lymph % (Auto) [place] % (Auto) Eos % (Auto) Baso % (Auto) Neut # (Auto) Lymph # (Auto) [place] # (Auto) Eos # (Auto) Baso # (Auto) pO2 VBG pH VBG pCO2 VBG HCO3 VBG Total CO2 VBG O2 Sat (Calc) VBG Base Excess VBG Potassium Sodium Chloride Glucose Lactate FiO2 Crit Value Called To Crit Value Called By Crit Value Read Back Blood Gas Notified Time Potassium Carbon Dioxide Anion Gap BUN Creatinine Est GFR ( Amer) Est GFR (Non-Af Amer) POC Glucose (mg/dL) > 500 H* 472 H* 457 H* Random Glucose Serum Osmolality Calcium Total Bilirubin AST ALT Alkaline Phosphatase Total Creatine Kinase CK-MB (Mass) Troponin I Total Protein Albumin Globulin Albumin/Globulin Ratio Venous Blood Potassium B-Hydroxybutyrate 08/12/18 08/12/18 17:09 21:06 WBC RBC Hgb Hct MCV MCH MCHC RDW Plt Count MPV Neut % (Auto) Lymph % (Auto) [place] % (Auto) Eos % (Auto) Baso % (Auto) Neut # (Auto) Lymph # (Auto) [place] # (Auto) Eos # (Auto) Baso # (Auto) pO2 VBG pH VBG pCO2 VBG HCO3 VBG Total CO2 VBG O2 Sat (Calc) VBG Base Excess VBG Potassium Sodium 146 Chloride 113 H Glucose Lactate FiO2 Crit Value Called To Crit Value Called By Crit Value Read Back Blood Gas Notified Time Potassium 4.7 Carbon Dioxide 19 L Anion Gap 19 BUN 70 H Creatinine 4.5 H Est GFR ( Amer) 11 Est GFR (Non-Af Amer) 9 POC Glucose (mg/dL) 152 H Random Glucose 484 H* D Serum Osmolality Calcium 10.0 Total Bilirubin AST ALT Alkaline Phosphatase Total Creatine Kinase CK-MB (Mass) Troponin I Total Protein Albumin Globulin Albumin/Globulin Ratio Venous Blood Potassium B-Hydroxybutyrate Assessment & Plan (1) Uncontrolled insulin dependent diabetes mellitus Assessment and Plan: As per Electrical [employer]. Status: Acute (2) Acute confusion Assessment and Plan: Needs neurological evaluation. Status: Acute (3) Elevated troponin I level Assessment and Plan: R/o acute NSTEMI. To do serial ECG's and TNI's. Get an echo to assess LV wall motion. Status: Acute (4) Dependent on hemodialysis Assessment and Plan: HD as per Nephrologists. Status: Acute
--- NOTE | 2018-08-13 00:55 | CON ---
DATE: 08/12/2018 ENDOCRINOLOGY CONSULTATION LOCATION: ER holding, awaiting a telemetry bed. HISTORY OF PRESENT ILLNESS: This is an 82-year-old female with known history of type 2 insulin-requiring diabetes, presenting here with altered mental status and marked lethargy and associated generalized body weakness and was found to have marked hyperglycemic accelerations and is now being referred for diabetic evaluation and management. PAST MEDICAL HISTORY: As mentioned above, history of type 2 insulin-requiring diabetes, on a combination of Lantus given as 26 units at bedtime with NovoLog taken as 10 units t.i.d. before meals; history of hypertension and dyslipidemia; history of diabetic retinopathy, polyneuropathy and nephropathy with end-stage renal disease and dialysis dependence; history of coronary artery disease and cardiac tachyarrhythmias with previous admissions for congestive heart failure; history of chronic obstructive lung disease; history of peripheral arterial disease and vasculopathy; history of previous TIA with known history of cerebrovascular disease. There is also history of generalized anxiety and depression with early dementia as noted. FAMILY HISTORY: Positive for hypertension and diabetes. SOCIAL HISTORY: The patient has a supportive family. No known substance use. REVIEW OF SYSTEMS: Not really possible at this time, but as per the family was noted to have increasing generalized body weakness with progressive bouts of dizziness and lightheadedness with altered mental status and increasing confusion and disorientation on the day of admission. She apparently missed a dialysis session as noted thereof. No chest pains or palpitations, but admits to progressive shortness of breath initially on exertion and then at rest, and her oral intake has been variable with nausea, dyspepsia and vague upper abdominal pains with no recent oral intake and also no usage of her insulin regimen as noted. PHYSICAL EXAMINATION: GENERAL: This is an overweight female, in no apparent distress. VITAL SIGNS: With a blood pressure of 140/80, pulse of 100 beats per minute and regular, temperature 98, respirations 20. Height is 5 feet. Weight is 150 pounds. HEENT: Head normocephalic. Eyes, anicteric with pink conjunctivae. Funduscopy is not possible at this time. Ears, nose, and throat otherwise normal. NECK: Supple. Thyroid gland is normal in size. No carotid bruits or any cervical adenopathy. CARDIOPULMONARY: Some adynamic precordium. S1 and S2 are rapid and regular. LUNGS: Show scattered rhonchi. ABDOMEN: Flat, soft with positive bowel sounds. EXTREMITIES: No peripheral edema. Pulses are +2 bilaterally. LABORATORY DATA: The chemistries showed a BUN of 75, sodium 142, potassium 5.5, chloride 106, CO2 of 21, glucose 748, and creatinine 4.5. Her troponin level is 0.14. The glucose values are ranging from 481 to 472 and over 500 mg/dL. ASSESSMENT: This is an 82-year-old female with uncontrolled and decompensated type 2 insulin-requiring diabetes, presenting here with hyperosmolar hyperglycemic state with mild ketosis and also superimposed dehydration and prerenal azotemia on the background of underlying diabetic end-stage nephropathy. She also has diabetic microvascular complications of retinopathy, polyneuropathy and nephropathy with end-stage renal disease and dialysis dependence. Moreover, she also has diabetic macrovascular complications of cerebrovascular disease with a previous transient ischemic attack and also coronary artery disease and peripheral arterial disease and vasculopathy. PLAN OF MANAGEMENT: We will give her at least 24 hours IV hydration with normal saline running at 200 mL per hour and repeat the basic metabolic panel at 6 o'clock today and adjust her IV hydration accordingly. We will watch her cardiovascular status especially with vigorous hydration as given. We will initiate the basal and bolus insulin regimen, which is more physiologic for this patient to start today, and detailed orders have been given. We will start with Novolog given as 12 units t.i.d. before meals to start at dinnertime today as ordered. We will modify the coverage scale to obviate hypoglycemia, and detailed orders have been given. We will also add basal insulin Lantus given as 30 units subcu at bedtime daily to start tonight. We will obtain serial chemistries and supplement accordingly as needed. We will also obtain a hemoglobin A1c to confirm her prior glycemic control, and baseline thyroid function studies and a lipid panel will be ordered. We will also add the parathyroid hormone intact level to screen for secondary hyperparathyroidism. We will follow. Bella Gold MD
[2018-08-13] MEDS: Albuterol 0.083% Inhal Sol (2.5 mg/3 mL) UD INH SCH ×4 (01:20→19:43)
[2018-08-13] MEDS: Sodium Chloride 0.9% 1,000 ML IV SCH ×4 (02:00→14:15)
[2018-08-13 07:46] LABS: BASO % 0.6 % (0.0-2.0); EOS # 0.1 K/uL (0.0-0.7); EOS % 1.8 % (0.0-4.0); HEMOGLOBIN 11.4 g/dL (11.0-16.0); LYMPH # 1.2 K/uL (1.0-4.3); LYMPH % 21.5 % (20.0-40.0); MEAN CELL VOLUME 85.8 fL (81.0-99.0); MEAN CORPUSCULAR HEMOGLOBIN 27.7 pg (27.0-31.0); MEAN CORPUSCULAR HGB CONC 32.2 g/dL (33.0-37.0); MEAN PLATELET VOLUME 10.3 fL (7.2-11.7); MONO # 0.5 K/uL (0.0-0.8); NEUT # 3.8 K/uL (1.8-7.0); NEUT % 68.1 % (50.0-75.0); RBC 4.1 Mil/uL (3.80-5.20); RED CELL DISTRIBUTION WIDTH 15.9 % (11.5-14.5)
[2018-08-13 07:48] LABS: WHITE BLOOD COUNT 5.6 K/uL (4.8-10.8)
[2018-08-13] MEDS: (Novolog) Insulin Aspart, Recombinant 100 u/ml 10 ml vial SC SCH ×7 (08:13→21:28)
[2018-08-13 08:30] LABS: TROPONIN I 0.167 ng/mL (0.00-0.120)
[2018-08-13 08:41] LABS: ALB/GLOB RATIO 1.3 (1.0-2.1); ALBUMIN 3.8 g/dL (3.5-5.0); CALCIUM 9.6 mg/dl (8.6-10.4)
[2018-08-13] MEDS: Multivitamin Vitamin B Complex (Nephro-Vite) Tab PO SCH (10:55)
--- NOTE | 2018-08-13 16:36 | PN ---
DATE: 08/13/2018 ENDOCRINOLOGY FOLLOWUP NOTE LOCATION: In room 656. SUBJECTIVE: This is an 82-year-old female with recent uncontrolled type 2 insulin-requiring diabetes, now being followed closely for metabolic management. Her glycemic levels are fluctuating, but improved with the glucose values overnight have ranged from 172 to 282 and 198 mg/dL. LABORATORY DATA: Her chemistry showed a BUN of 75, sodium 148, potassium 5, chloride 116, CO2 of 16, glucose is 306, and creatinine is 4.8. Her hemoglobin A1c is 12.8%, which is quite elevated as noted thereof. This is indicative of suboptimal metabolic control of her diabetic condition even prior to this admission. ASSESSMENT AND PLAN: So at this time, we will continue the same basal and bolus insulin regimen to allow for dose equilibration and keep her NovoLog given as 12 units subcutaneously t.i.d. before meals as ordered. We will continue her Lantus given as 30 units subcutaneously at bedtime daily as given. We will also continue the low dose correction scale using NovoLog insulin as ordered. We will obtain serial chemistries and supplement accordingly as needed. We will follow. Bella Gold MD
[2018-08-13 17:20] LABS: ARTERIAL BLOOD GAS HCO3 28.5 mmol/L (21-28); ARTERIAL BLOOD GAS O2 SAT 96.9 % (95-98); ARTERIAL BLOOD GAS PCO2 37 mm/Hg (35-45); ARTERIAL BLOOD GAS PH 7.49 (7.35-7.45); ARTERIAL BLOOD GAS PO2 70 mm/Hg (80-100); ARTERIAL BLOOD GAS TCO2 29.3 mmol/L (22-28)
--- NOTE | 2018-08-13 19:47 | CARD ---
APPROVED REPORT Date of service: 08/12/2018 EKG Measurement Heart [id number] <Conclusion> Sinus tachycardia Possible Left atrial enlargement Left axis deviation Left ventricular hypertrophy with repolarization abnormality Cannot rule out Septal infarct, age undetermined Abnormal ECG
[2018-08-13] MEDS: (Lantus) Insulin Glargine, Recombinant SC SCH (21:29)
--- NOTE | 2018-08-13 22:30 | CP.PCM.PN ---
Subjective - Date & Time of Evaluation Date of Evaluation: 08/13/18 Time of Evaluation: 13:20 - Subjective Subjective: patient is more responsive today. glucose under better control. she still has troponin elevation. She will be reevaluated by cardiology. Neurology consult requested. Will repeat labs in a.m. Objective - Vital Signs/Intake and Output Vital Signs (last 24 hours): Temp Pulse Resp BP Pulse Ox 98.4 F 61 20 146/68 97 08/13/18 16:00 08/13/18 18:00 08/13/18 16:00 08/13/18 16:00 08/13/18 16:00 Intake and Output: 08/13/18 08/14/18 18:59 06:59 Intake Total 760 Balance 760 - Medications Medications: Current Medications Albuterol Sulfate (Albuterol 0.083% Inhal Luisa (2.5 Mg/3 Ml) Ud) 2.5 mg INH RQ6 [facility] Last Admin: 08/13/18 19:43 Dose: 2.5 mg Aspirin (Aspirin Chewable) 81 mg PO DAILY [facility] Last Admin: 08/13/18 10:55 Dose: Not Given Atenolol (Tenormin) 25 mg PO DAILY [facility] Last Admin: 08/13/18 10:55 Dose: Not Given Clopidogrel Bisulfate (Plavix) 75 mg PO DAILY [facility] Last Admin: 08/13/18 10:55 Dose: Not Given Donepezil HCl (Aricept) 10 mg PO HS [facility] Last Admin: 08/13/18 22:15 Dose: 10 mg Famotidine (Pepcid) 20 mg PO DAILY [facility] Last Admin: 08/13/18 10:55 Dose: Not Given Heparin Sodium (Porcine) (Heparin) 5,000 units SC Q12 [facility] Last Admin: 08/13/18 22:16 Dose: 5,000 units Hydralazine HCl (Apresoline) 25 mg PO BID [facility] Last Admin: 08/13/18 18:17 Dose: 25 mg Sodium Chloride (Sodium Chloride 0.9%) 1,000 mls @ 40 mls/hr IV .Q24H [facility] Last Admin: 08/13/18 14:15 Dose: 40 mls/hr Insulin Aspart (Novolog) 12 unit SC AC [facility] Last Admin: 08/13/18 18:10 Dose: 12 units Insulin Aspart (Novolog) 0 unit SC ACHS [facility] Last Admin: 08/13/18 21:28 Dose: Not Given Insulin Glargine (Lantus) 30 unit SC HS [facility] Last Admin: 08/13/18 21:29 Dose: Not Given Montelukast Sodium (Singulair) 10 mg PO DAILY [facility] Last Admin: 08/13/18 10:55 Dose: Not Given Oxybutynin Chloride (Ditropan Tab) 5 mg PO DAILY [facility] Last Admin: 08/13/18 10:55 Dose: Not Given Quetiapine Fumarate (Seroquel) 25 mg PO DAILY [facility] Last Admin: 08/13/18 10:55 Dose: Not Given Rosuvastatin Calcium (Crestor) 5 mg PO HS [facility] Last Admin: 08/13/18 22:15 Dose: 5 mg Sevelamer Carbonate (Renvela) 800 mg PO TIDCC [facility] Last Admin: 08/13/18 18:00 Dose: 800 mg Vitamin B Complex/Vit C/Folic Acid (Nephro-Marina) 1 tab PO DAILY [facility] Last Admin: 08/13/18 10:55 Dose: Not Given - Labs Labs: 08/13/18 07:27 08/13/18 07:27 - Constitutional Appears: Chronically Ill - Head Exam Head Exam: NORMOCEPHALIC - Eye Exam Eye Exam: Normal appearance Pupil Exam: NORMAL ACCOMODATION - ENT Exam ENT Exam: Normal Exam - Neck Exam Neck Exam: Normal Inspection - Respiratory Exam Respiratory Exam: Decreased Breath Sounds - Cardiovascular Exam Cardiovascular Exam: REGULAR RHYTHM - GI/Abdominal Exam GI & Abdominal Exam: Normal Bowel Sounds - Rectal Exam Rectal Exam: Deferred - Exam External exam: NORMAL EXTERNAL EXAM - Extremities Exam Extremities Exam: Normal Inspection - Back Exam Back Exam: NORMAL INSPECTION - Neurological Exam Neurological Exam: Altered - Psychiatric Exam Psychiatric exam: Depressed - Skin Skin Exam: Dry Assessment and Plan (1) Altered mental status Status: Acute (2) Chronic renal failure Status: Acute (3) Diabetes mellitus Status: Acute (4) ESRD (end stage renal disease) on dialysis Status: Acute (5) Elevated troponin I level Status: Acute (6) Uncontrolled diabetes mellitus Status: Acute
--- NOTE | 2018-08-13 22:56 | CP.PCM.PN ---
Subjective - Date & Time of Evaluation Date of Evaluation: 08/13/18 Time of Evaluation: 20:30 - Subjective Subjective: Patient alert, oriented today, has no complaint of chest pain or SOB. Objective - Vital Signs/Intake and Output Vital Signs (last 24 hours): Temp Pulse Resp BP Pulse Ox 98.4 F 61 20 146/68 97 08/13/18 16:00 08/13/18 18:00 08/13/18 16:00 08/13/18 16:00 08/13/18 16:00 Intake and Output: 08/13/18 08/14/18 18:59 06:59 Intake Total 760 Balance 760 - Medications Medications: Current Medications Albuterol Sulfate (Albuterol 0.083% Inhal Luisa (2.5 Mg/3 Ml) Ud) 2.5 mg INH RQ6 [facility] Last Admin: 08/13/18 19:43 Dose: 2.5 mg Aspirin (Aspirin Chewable) 81 mg PO DAILY [facility] Last Admin: 08/13/18 10:55 Dose: Not Given Atenolol (Tenormin) 25 mg PO DAILY [facility] Last Admin: 08/13/18 10:55 Dose: Not Given Clopidogrel Bisulfate (Plavix) 75 mg PO DAILY [facility] Last Admin: 08/13/18 10:55 Dose: Not Given Donepezil HCl (Aricept) 10 mg PO HS [facility] Last Admin: 08/13/18 22:15 Dose: 10 mg Famotidine (Pepcid) 20 mg PO DAILY [facility] Last Admin: 08/13/18 10:55 Dose: Not Given Heparin Sodium (Porcine) (Heparin) 5,000 units SC Q12 [facility] Last Admin: 08/13/18 22:16 Dose: 5,000 units Hydralazine HCl (Apresoline) 25 mg PO BID [facility] Last Admin: 08/13/18 18:17 Dose: 25 mg Sodium Chloride (Sodium Chloride 0.9%) 1,000 mls @ 40 mls/hr IV .Q24H [facility] Last Admin: 08/13/18 14:15 Dose: 40 mls/hr Insulin Aspart (Novolog) 12 unit SC AC [facility] Last Admin: 08/13/18 18:10 Dose: 12 units Insulin Aspart (Novolog) 0 unit SC ACHS [facility] Last Admin: 08/13/18 21:28 Dose: Not Given Insulin Glargine (Lantus) 30 unit SC [facility] Last Admin: 08/13/18 21:29 Dose: Not Given Montelukast Sodium (Singulair) 10 mg PO DAILY [facility] Last Admin: 08/13/18 10:55 Dose: Not Given Oxybutynin Chloride (Ditropan Tab) 5 mg PO DAILY [facility] Last Admin: 08/13/18 10:55 Dose: Not Given Quetiapine Fumarate (Seroquel) 25 mg PO DAILY [facility] Last Admin: 08/13/18 10:55 Dose: Not Given Rosuvastatin Calcium (Crestor) 5 mg PO [facility] Last Admin: 08/13/18 22:15 Dose: 5 mg Sevelamer Carbonate (Renvela) 800 mg PO TIDCC [facility] Last Admin: 08/13/18 18:00 Dose: 800 mg Vitamin B Complex/Vit C/Folic Acid (Nephro-Marina) 1 tab PO DAILY [facility] Last Admin: 08/13/18 10:55 Dose: Not Given - Labs Labs: 08/13/18 07:27 08/13/18 07:27 - Constitutional Appears: No Acute Distress, Chronically Ill - Head Exam Head Exam: NORMAL INSPECTION - Eye Exam Eye Exam: Normal appearance - ENT Exam ENT Exam: Normal Exam - Neck Exam Neck Exam: Normal Inspection - Respiratory Exam Respiratory Exam: Clear to Ausculation Bilateral, NORMAL BREATHING PATTERN - Cardiovascular Exam Cardiovascular Exam: REGULAR RHYTHM - GI/Abdominal Exam GI & Abdominal Exam: Soft, Normal Bowel Sounds - Rectal Exam Rectal Exam: Deferred - Exam Exam: NORMAL INSPECTION - Extremities Exam Extremities Exam: Normal Inspection - Back Exam Back Exam: NORMAL INSPECTION - Neurological Exam Neurological Exam: Alert, Awake, Oriented x3 - Psychiatric Exam Psychiatric exam: Anxious - Skin Skin Exam: Dry, Intact, Warm Assessment and Plan (1) Uncontrolled insulin dependent diabetes mellitus Status: Acute (2) Acute confusion Status: Resolved (3) Elevated troponin I level Assessment & Plan: Awaiting Echo Status: Acute (4) Dependent on hemodialysis Assessment & Plan: HD as per Nephrologists. Status: Acute
[2018-08-14] MEDS: Albuterol 0.083% Inhal Sol (2.5 mg/3 mL) UD INH SCH ×4 (01:55→20:22)
--- NOTE | 2018-08-14 07:19 | CP.PCM.CON ---
History of Present Illness - History of Present Illness History of Present Illness: consult dictated CONFUSED B/L CEREBRAL DYSFUNCTION BILAT BABINSKI ASTERIXIS MRI /EEG CONTROL DM ON ANTI PLATELETS Past Patient History - Infectious Disease Hx of Infectious Diseases: None - Tetanus Immunizations Tetanus Immunization: Unknown, Up to Date - Past Medical History & Family History Past Medical History?: Yes - Past Social History Smoking Status: Never Smoked Chewing Tobacco Use: No Cigar Use: No Alcohol: None Drugs: Denies Home Situation {Lives}: Alone - CARDIAC Hx Cardiac Disorders: Yes Hx Cardia Arrhythmia: Yes Hx Congestive Heart Failure: Yes Hx Hypercholesterolemia: Yes Hx Hypertension: Yes Hx Hypotension: Yes - PULMONARY Hx Respiratory Disorders: Yes Hx Asthma: Yes Hx Bronchitis: Yes Hx Chronic Obstructive Pulmonary Disease (COPD): Yes (Emphysema,) Hx Emphysema: Yes - NEUROLOGICAL Hx Neurological Disorder: Yes Hx Dementia: Yes Hx Migraine: Yes Hx Transient Ischemic Attacks (TIA): Yes - HEENT Hx HEENT Problems: Yes Hx Blind: Yes (Left eye.) - RENAL Hx Chronic Kidney Disease: Yes Date of Last Dialysis Treatment: 08/08/18 - ENDOCRINE/METABOLIC Hx Endocrine Disorders: Yes Hx Diabetes Mellitus Type 2: Yes - HEMATOLOGICAL/ONCOLOGICAL Hx Blood Disorders: No - INTEGUMENTARY Hx Dermatological Problems: Yes Hx Cellulitis: Yes Hx Eczema: Yes - MUSCULOSKELETAL/RHEUMATOLOGICAL Hx Musculoskeletal Disorders: Yes Hx Arthritis: Yes Hx Falls: Yes Hx Fractures: Yes - GASTROINTESTINAL Hx Gastrointestinal Disorders: Yes Hx Gastroesophageal Reflux: Yes Hx Hemorrhoids: Yes - GENITOURINARY/GYNECOLOGICAL Hx Genitourinary Disorders: Yes Hx Urinary Tract Infection: Yes - PSYCHIATRIC Hx Psychophysiologic Disorder: Yes Hx Anxiety: Yes Hx Depression: Yes Hx Substance Use: No - SURGICAL HISTORY Hx Surgeries: Yes Hx Arteriovenous Shunt: Yes (right arm) - ANESTHESIA Hx Anesthesia: Yes Hx Anesthesia Reactions: No Hx Malignant Hyperthermia: No Meds Allergies/Adverse Reactions: Allergies Allergy/AdvReac Type Severity Reaction Status Date / Time No Known Allergies Allergy Verified 04/09/18 13:05 - Medications Medications: Current Medications Albuterol Sulfate (Albuterol 0.083% Inhal Luisa (2.5 Mg/3 Ml) Ud) 2.5 mg INH RQ6 [facility] Last Admin: 08/14/18 01:55 Dose: Not Given Aspirin (Aspirin Chewable) 81 mg PO DAILY [facility] Last Admin: 08/13/18 10:55 Dose: Not Given Atenolol (Tenormin) 25 mg PO DAILY [facility] Last Admin: 08/13/18 10:55 Dose: Not Given Clopidogrel Bisulfate (Plavix) 75 mg PO DAILY [facility] Last Admin: 08/13/18 10:55 Dose: Not Given Donepezil HCl (Aricept) 10 mg PO HS [facility] Last Admin: 08/13/18 22:15 Dose: 10 mg Famotidine (Pepcid) 20 mg PO DAILY [facility] Last Admin: 08/13/18 10:55 Dose: Not Given Heparin Sodium (Porcine) (Heparin) 5,000 units SC Q12 [facility] Last Admin: 08/13/18 22:16 Dose: 5,000 units Hydralazine HCl (Apresoline) 25 mg PO BID [facility] Last Admin: 08/13/18 18:17 Dose: 25 mg Sodium Chloride (Sodium Chloride 0.9%) 1,000 mls @ 40 mls/hr IV .Q24H [facility] Last Admin: 08/13/18 14:15 Dose: 40 mls/hr Insulin Aspart (Novolog) 12 unit SC AC [facility] Last Admin: 08/13/18 18:10 Dose: 12 units Insulin Aspart (Novolog) 0 unit SC ACHS [facility] Last Admin: 08/13/18 21:28 Dose: Not Given Insulin Glargine (Lantus) 30 unit SC HS [facility] Last Admin: 08/13/18 21:29 Dose: Not Given Montelukast Sodium (Singulair) 10 mg PO DAILY [facility] Last Admin: 08/13/18 10:55 Dose: Not Given Oxybutynin Chloride (Ditropan Tab) 5 mg PO DAILY [facility] Last Admin: 08/13/18 10:55 Dose: Not Given Quetiapine Fumarate (Seroquel) 25 mg PO DAILY [facility] Last Admin: 08/13/18 10:55 Dose: Not Given Rosuvastatin Calcium (Crestor) 5 mg PO HS [facility] Last Admin: 08/13/18 22:15 Dose: 5 mg Sevelamer Carbonate (Renvela) 800 mg PO TIDCC [facility] Last Admin: 08/13/18 18:00 Dose: 800 mg Vitamin B Complex/Vit C/Folic Acid (Nephro-Marina) 1 tab PO DAILY [facility] Last Admin: 08/13/18 10:55 Dose: Not Given Results - Vital Signs Recent Vital Signs: Last Vital Signs Temp 98.8 F 08/13/18 23:25 Pulse 71 08/14/18 00:00 Resp 20 08/13/18 23:25 BP 157/77 H 08/13/18 23:25 Pulse Ox 95 08/13/18 23:25 - Labs Result Diagrams: 08/13/18 07:27 08/13/18 07:27 Labs: Laboratory Results - last 24 hr 08/13/18 08/13/18 08/13/18 07:27 07:27 07:27 WBC 5.6 D RBC 4.10 Hgb 11.4 Hct 35.2 MCV 85.8 MCH 27.7 MCHC 32.2 L RDW 15.9 H Plt Count 183 MPV 10.3 Neut % (Auto) 68.1 Lymph % (Auto) 21.5 [place] % (Auto) 8.0 Eos % (Auto) 1.8 Baso % (Auto) 0.6 Neut # (Auto) 3.8 Lymph # (Auto) 1.2 [place] # (Auto) 0.5 Eos # (Auto) 0.1 Baso # (Auto) 0.0 Puncture Site pCO2 pO2 HCO3 ABG pH ABG Total CO2 ABG O2 Saturation ABG Base Excess Mohinder Test ABG Potassium A-a O2 Difference Respiratory Index Glucose Lactate Liter Flow FiO2 Sodium 148 Potassium 5.0 Chloride 116 H Carbon Dioxide 16 L Anion Gap 21 H BUN 75 H Creatinine 4.8 H Est GFR ( Amer) 11 Est GFR (Non-Af Amer) 9 POC Glucose (mg/dL) Random Glucose 306 H Hemoglobin A1c 12.8 H Calcium 9.6 Total Bilirubin 0.8 AST 35 ALT 22 Alkaline Phosphatase 104 Troponin I 0.1670 H* Total Protein 6.6 Albumin 3.8 Globulin 2.8 Albumin/Globulin Ratio 1.3 Arterial Blood Potassium Hep Bs Antigen 08/13/18 08/13/18 08/13/18 11:29 12:26 17:14 WBC RBC Hgb Hct MCV MCH MCHC RDW Plt Count MPV Neut % (Auto) Lymph % (Auto) [place] % (Auto) Eos % (Auto) Baso % (Auto) Neut # (Auto) Lymph # (Auto) [place] # (Auto) Eos # (Auto) Baso # (Auto) Puncture Site pCO2 pO2 HCO3 ABG pH ABG Total CO2 ABG O2 Saturation ABG Base Excess Mohinder Test ABG Potassium A-a O2 Difference Respiratory Index Glucose Lactate Liter Flow FiO2 Sodium Potassium Chloride Carbon Dioxide Anion Gap BUN Creatinine Est GFR ( Amer) Est GFR (Non-Af Amer) POC Glucose (mg/dL) 172 H 161 H Random Glucose Hemoglobin A1c Calcium Total Bilirubin AST ALT Alkaline Phosphatase Troponin I Total Protein Albumin Globulin Albumin/Globulin Ratio Arterial Blood Potassium Hep Bs Antigen Negative 08/13/18 08/13/18 08/14/18 17:17 21:15 06:15 WBC RBC Hgb Hct MCV MCH MCHC RDW Plt Count MPV Neut % (Auto) Lymph % (Auto) [place] % (Auto) Eos % (Auto) Baso % (Auto) Neut # (Auto) Lymph # (Auto) [place] # (Auto) Eos # (Auto) Baso # (Auto) Puncture Site Lra pCO2 37 pO2 70 L HCO3 28.5 H ABG pH 7.49 H ABG Total CO2 29.3 H ABG O2 Saturation 96.9 ABG Base Excess 4.7 H Mohinder Test Na ABG Potassium 3.3 L A-a O2 Difference 33.0 Respiratory Index 0.5 Glucose 171 H Lactate 2.3 H Liter Flow 0 FiO2 21.0 Sodium 141.0 Potassium Chloride 105.0 Carbon Dioxide Anion Gap BUN Creatinine Est GFR ( Amer) Est GFR (Non-Af Amer) POC Glucose (mg/dL) 123 H 221 H Random Glucose Hemoglobin A1c Calcium Total Bilirubin AST ALT Alkaline Phosphatase Troponin I Total Protein Albumin Globulin Albumin/Globulin Ratio Arterial Blood Potassium 3.3 L Hep Bs Antigen
[2018-08-14] MEDS: (Novolog) Insulin Aspart, Recombinant 100 u/ml 10 ml vial SC SCH ×7 (07:41→21:15)
[2018-08-14 07:53] LABS: BASO # 0.1 K/uL (0.0-0.2); EOS # 0.1 K/uL (0.0-0.7); EOS % 2.6 % (0.0-4.0); HEMOGLOBIN 12.1 g/dL (11.0-16.0); LYMPH % 36.3 % (20.0-40.0); MEAN CELL VOLUME 84.5 fL (81.0-99.0); MEAN CORPUSCULAR HEMOGLOBIN 27.4 pg (27.0-31.0); MEAN CORPUSCULAR HGB CONC 32.4 g/dL (33.0-37.0); MEAN PLATELET VOLUME 10.7 fL (7.2-11.7); MONO # 0.6 K/uL (0.0-0.8); MONO % 10.7 % (0.0-10.0); NEUT # 2.7 K/uL (1.8-7.0); NEUT % 49.4 % (50.0-75.0); RBC 4.41 Mil/uL (3.80-5.20); RED CELL DISTRIBUTION WIDTH 15.9 % (11.5-14.5); WHITE BLOOD COUNT 5.4 K/uL (4.8-10.8)
[2018-08-14 08:36] LABS: TROPONIN I 0.116 ng/mL (0.00-0.120)
[2018-08-14 09:29] LABS: FOLATE 12.9 ng/mL
[2018-08-14] MEDS: Multivitamin Vitamin B Complex (Nephro-Vite) Tab PO SCH (09:55)
--- NOTE | 2018-08-14 11:35 | MRI ---
Date of service: 08/14/2018 PROCEDURE: MRI BRAIN WITHOUT CONTRAST HISTORY: encephalopathy / stroke COMPARISON: Noncontrast head CT 08/12/2018. TECHNIQUE: Multiplanar, multisequence MR images of the brain were obtained without intravenous contrast enhancement. FINDINGS: HEMORRHAGE: Two punctate areas of signal dephasing are seen at the left parietal lobe superiorly in a subcortical location likely reflecting 2 nearly adjacent cavernomata. No additional evidence of hemosiderin/hemorrhage. DWI: No evidence of an acute or early subacute infarction. BRAIN PARENCHYMA: Mild diffuse cerebral atrophy chronic microangiopathy are reiterated no atrophy or chronic microvascular ischemic changes. No interval mass effect or suspicious extra-axial collection appreciable. Posterior fossa contents remain diffusely nonfocal. VENTRICLES: Unremarkable. No hydrocephalus. CRANIUM: Unremarkable. ORBITS: Grossly unremarkable. PARANASAL SINUSES/MASTOIDS: Clear VASCULAR SYSTEM: Skull base flow voids intact. OTHER FINDINGS: None. IMPRESSION: Stable age related neuro degenerative changes are appreciated which appear age-appropriate with with no definite inter vol acute findings. Two tiny cavernoma tear seen the left parietal lobe superiorly.
[2018-08-14 11:48] LABS: PROLACTIN 115.9 ng/mL (3.0-18.9)
[2018-08-14] MEDS: Sodium Chloride 0.9% 1,000 ML IV SCH (14:51)
--- NOTE | 2018-08-14 19:08 | CON ---
DATE: 08/14/2018 TIME OF EVALUATION: 07:05 a.m. REASON FOR CONSULTATION Confusion. CHIEF COMPLAINT: The patient was brought in to [facility] with history of change in mental status and confusion. From neurological point of view, I was called into evaluate her for further management. HISTORY OF PRESENT ILLNESS: Mrs. Yeni Prater is an 82-year-old female brought in to [facility] with history of confusion in her apartment. From neurologic point of view, I was called in to evaluate her hospital for further management. No history of fall. No history of trauma. No history of loss of consciousness. No history of involuntary movements or bowel and bladder incontinence at the scene or at her apartment. The patient seems to be lethargic since her hospitalization. PAST MEDICAL HISTORY: Arthritis, bronchitis, cardiac arrhythmia, CHF, COPD, anxiety disorder, dementia, depression, diabetes mellitus, emphysema, hypertension, dyslipidemia, end-stage renal disease and history of TIA. ALLERGIES: NO KNOWN ALLERGIES. PERSONAL HISTORY: Denies smoking or alcohol use. REVIEW OF SYSTEMS: A 12-point system being reviewed. From neuro, change in mental status. MEDICATION: Albuterol, Apresoline, Aricept, aspirin, Crestor, Ditropan, insulin, folic acid, NovoLog, Plavix, Seroquel. PHYSICAL EXAMINATION: VITAL SIGNS: Blood pressure 157/77, mean artery pressure of 103, respiratory rate 18, pulse rate 70 and regular, temperature 98.8 degree Fahrenheit. NECK: Supple. No carotid bruits. HEART: Sounds regular. CHEST: Fair air entry. EXTREMITIES: Both legs are externally rotated. NEUROLOGIC EXAMINATION: Mental status examination, she is arousable calling her first name. She follows one-step command, following that she falls asleep. She could not able to maintain her alertness. Eyes are closed. Speech, some mumbling, not communicable. Cranial nerve examination, on forcibly opening eyelids respond to visual threat. She could able to count the fingers. Restricted all conjugate movement of her eyes. No facial sensory deficit. Significant facial asymmetry manifesting as flattening of the left nasolabial fold. Tongue seems to be moist. Motor examination, she could able to move right more than her left side. Tone is increased in all four extremities. Deep tendon reflexes are absent. Plantars are upgoing on her both sides. Sensory examination respond to pain grimacing equally on both sides. Coordination and gait is deferred at this time. CONCLUSION: 1. Yeni Prater as per neurological examination presenting with global cerebral dysfunction. This is probably secondary to metabolic encephalopathy. Her tremor, asterixis raise the possibility of hepatorenal syndrome or central nervous system disorder such as a thalamic stroke. 2. The patient also presenting with bilateral cerebral dysfunction, could be multi infarction secondary to her metabolic problem manifesting with significant increased tone and bilateral Babinski sign. Blood workup, WBC 5.6, hemoglobin 11.4, hematocrit 35.2, platelets 183. Sodium 148, potassium 5.0, chloride 116, bicarbonate 16, BUN 75, creatinine 4.8. Glucose 231. Troponin 0.1670. RECOMMENDATIONS: 1. MRI of the brain to rule out any central cause. 2. Carotid Doppler to assess the stenosis. 3. Control her diabetes. Proper hydration. Continue dialysis as recommended. 4. DVT prophylaxis and stroke prophylaxis as she has been getting at present. The patient will be followed closely with you. Nnamdi Choudhary MD
[2018-08-14] MEDS: (Lantus) Insulin Glargine, Recombinant SC SCH (22:06)
--- NOTE | 2018-08-14 22:40 | CP.PCM.PN ---
Subjective - Date & Time of Evaluation Date of Evaluation: 08/14/18 Time of Evaluation: 19:10 - Subjective Subjective: patient less confused today. Blood pressure is still not under good control. BUN 50 and glucose level ranging from 275-375. Patient seen by neurology and MRI requested. Will continue to monitor glucose levels. Objective - Vital Signs/Intake and Output Vital Signs (last 24 hours): Temp Pulse Resp BP Pulse Ox 97.9 F 66 20 135/71 97 08/14/18 15:00 08/14/18 19:11 08/14/18 15:00 08/14/18 19:11 08/14/18 15:00 Intake and Output: 08/14/18 08/15/18 18:59 06:59 Intake Total 480 Output Total 600 Balance -120 - Medications Medications: Current Medications Albuterol Sulfate (Albuterol 0.083% Inhal Luisa (2.5 Mg/3 Ml) Ud) 2.5 mg INH RQ6 [facility] Last Admin: 08/14/18 20:22 Dose: Not Given Aspirin (Aspirin Chewable) 81 mg PO DAILY [facility] Last Admin: 08/14/18 09:53 Dose: 81 mg Atenolol (Tenormin) 25 mg PO DAILY [facility] Last Admin: 08/14/18 13:24 Dose: 25 mg Clopidogrel Bisulfate (Plavix) 75 mg PO DAILY [facility] Last Admin: 08/14/18 09:53 Dose: 75 mg Donepezil HCl (Aricept) 10 mg PO HS [facility] Last Admin: 08/14/18 22:03 Dose: 10 mg Famotidine (Pepcid) 20 mg PO DAILY [facility] Last Admin: 08/14/18 09:53 Dose: 20 mg Heparin Sodium (Porcine) (Heparin) 5,000 units SC Q12 [facility] Last Admin: 08/14/18 22:03 Dose: 5,000 units Hydralazine HCl (Apresoline) 25 mg PO BID [facility] Last Admin: 08/14/18 19:10 Dose: 25 mg Sodium Chloride (Sodium Chloride 0.9%) 1,000 mls @ 40 mls/hr IV .Q24H [facility] Last Admin: 08/14/18 14:51 Dose: Not Given Insulin Aspart (Novolog) 0 unit SC ACHS [facility] Last Admin: 08/14/18 21:15 Dose: Not Given Insulin Aspart (Novolog) 18 unit SC AC [facility] Last Admin: 08/14/18 19:04 Dose: Not Given Insulin Glargine (Lantus) 34 unit SC HS [facility] Last Admin: 08/14/18 22:06 Dose: 34 units Montelukast Sodium (Singulair) 10 mg PO DAILY [facility] Last Admin: 08/14/18 09:53 Dose: 10 mg Oxybutynin Chloride (Ditropan Tab) 5 mg PO DAILY [facility] Last Admin: 08/14/18 09:55 Dose: 5 mg Quetiapine Fumarate (Seroquel) 25 mg PO DAILY [facility] Last Admin: 08/14/18 09:53 Dose: 25 mg Rosuvastatin Calcium (Crestor) 5 mg PO HS [facility] Last Admin: 08/14/18 22:03 Dose: 5 mg Sevelamer Carbonate (Renvela) 800 mg PO TIDCC [facility] Last Admin: 08/14/18 19:05 Dose: Not Given Vitamin B Complex/Vit C/Folic Acid (Nephro-Marina) 1 tab PO DAILY [facility] Last Admin: 08/14/18 09:55 Dose: 1 tab - Labs Labs: 08/14/18 07:37 08/14/18 07:37 - Constitutional Appears: Chronically Ill - Head Exam Head Exam: NORMOCEPHALIC - Eye Exam Eye Exam: Normal appearance Pupil Exam: NORMAL ACCOMODATION - ENT Exam ENT Exam: Normal Exam - Neck Exam Neck Exam: Normal Inspection - Respiratory Exam Respiratory Exam: Decreased Breath Sounds - Cardiovascular Exam Cardiovascular Exam: REGULAR RHYTHM - GI/Abdominal Exam GI & Abdominal Exam: Normal Bowel Sounds - Rectal Exam Rectal Exam: Deferred - Exam External exam: NORMAL EXTERNAL EXAM - Extremities Exam Extremities Exam: Tenderness - Back Exam Back Exam: NORMAL INSPECTION - Neurological Exam Neurological Exam: Awake - Psychiatric Exam Psychiatric exam: Depressed - Skin Skin Exam: Dry Assessment and Plan (1) Altered mental status Status: Acute (2) Chronic renal failure Status: Acute (3) Diabetes mellitus Status: Acute (4) ESRD (end stage renal disease) on dialysis Status: Acute (5) Elevated troponin I level Status: Acute (6) Uncontrolled diabetes mellitus Status: Acute
--- NOTE | 2018-08-14 23:50 | CP.PCM.CON ---
History of Present Illness - History of Present Illness History of Present Illness: REASONS FOR CONSULT : ESRD ON HD M W Roberta ANEMIA OF CKD .. H/H STABLE HYPERKALEMIA .. K 5.3 PT IS WELL KNOWN TO ME FOR THE LAST 3 -4 YEARS .. ON HD M W F MMP AND FREQUENT ADMISSIONS FOR HER MMP Patient SALAS from home, aparently found on the floor outosde of her apartment confused. Patient is awake & alert but altered, unable to provide history. As per EMS, patient missed her dialysis yesterday because she "was not feeling well". PMhx of ESRD on HD, CHF, COPD, DM II, dementia, anxiety/depression, Time Seen by Provider: 08/12/18 08:37 Chief Complaint (Nursing): Altered Mental Status History Per: EMS Onset/Duration Of Symptoms: Unknown Onset Of Symptoms: Cannot Confirm Onset Past Medical History Reviewed: Historical Data, Nursing Documentation, Vital Signs Vital Signs: Last Vital Signs Temp 99.6 F 08/12/18 08:39 Pulse 109 H 08/12/18 08:39 Resp 26 H 08/12/18 08:39 BP 148/88 08/12/18 08:39 Pulse Ox 94 L 08/12/18 08:39 - Medical History PMH: Anxiety, Arthritis, Asthma, Bronchitis, Cardia Arrhythmia, CHF, COPD (Emphysema,), Dementia, Depression, Diabetes (type 2), Emphysema, Fractures, HTN, Hypercholesterolemia, Migraine, End Stage Renal Disease, Chronic Kidney Disease, TIA - [facility] Procedures (10/08/17) ASSISTANCE WITH RESPIRATORY VENTILATION, 24-96 HRS, CPAP (11/01/16) INSERTION OF INFUSION DEV INTO INF VENA CAVA, PERC APPROACH (10/06/15) PERFORMANCE OF URINARY FILTRATION, MULTIPLE (12/24/16) PERFORMANCE OF URINARY FILTRATION, SINGLE (11/01/16) Past Patient History - Infectious Disease Hx of Infectious Diseases: None - Tetanus Immunizations Tetanus Immunization: Unknown, Up to Date - Past Medical History & Family History Past Medical History?: Yes - Past Social History Smoking Status: Never Smoked Chewing Tobacco Use: No Cigar Use: No Alcohol: None Drugs: Denies Home Situation {Lives}: Alone - CARDIAC Hx Cardiac Disorders: Yes Hx Cardia Arrhythmia: Yes Hx Congestive Heart Failure: Yes Hx Hypercholesterolemia: Yes Hx Hypertension: Yes Hx Hypotension: Yes - PULMONARY Hx Respiratory Disorders: Yes Hx Asthma: Yes Hx Bronchitis: Yes Hx Chronic Obstructive Pulmonary Disease (COPD): Yes (Emphysema,) Hx Emphysema: Yes - NEUROLOGICAL Hx Neurological Disorder: Yes Hx Dementia: Yes Hx Migraine: Yes Hx Transient Ischemic Attacks (TIA): Yes - HEENT Hx HEENT Problems: Yes Hx Blind: Yes (Left eye.) - RENAL Hx Chronic Kidney Disease: Yes Date of Last Dialysis Treatment: 08/08/18 - ENDOCRINE/METABOLIC Hx Endocrine Disorders: Yes Hx Diabetes Mellitus Type 2: Yes - HEMATOLOGICAL/ONCOLOGICAL Hx Blood Disorders: No - INTEGUMENTARY Hx Dermatological Problems: Yes Hx Cellulitis: Yes Hx Eczema: Yes - MUSCULOSKELETAL/RHEUMATOLOGICAL Hx Musculoskeletal Disorders: Yes Hx Arthritis: Yes Hx Falls: Yes Hx Fractures: Yes - GASTROINTESTINAL Hx Gastrointestinal Disorders: Yes Hx Gastroesophageal Reflux: Yes Hx Hemorrhoids: Yes - GENITOURINARY/GYNECOLOGICAL Hx Genitourinary Disorders: Yes Hx Urinary Tract Infection: Yes - PSYCHIATRIC Hx Psychophysiologic Disorder: Yes Hx Anxiety: Yes Hx Depression: Yes Hx Substance Use: No - SURGICAL HISTORY Hx Surgeries: Yes Hx Arteriovenous Shunt: Yes (right arm) - ANESTHESIA Hx Anesthesia: Yes Hx Anesthesia Reactions: No Hx Malignant Hyperthermia: No Meds Allergies/Adverse Reactions: Allergies Allergy/AdvReac Type Severity Reaction Status Date / Time No Known Allergies Allergy Verified 04/09/18 13:05 - Medications Medications: Current Medications Albuterol Sulfate (Albuterol 0.083% Inhal Luisa (2.5 Mg/3 Ml) Ud) 2.5 mg INH RQ6 [facility] Last Admin: 08/14/18 20:22 Dose: Not Given Aspirin (Aspirin Chewable) 81 mg PO DAILY [facility] Last Admin: 08/14/18 09:53 Dose: 81 mg Atenolol (Tenormin) 25 mg PO DAILY [facility] Last Admin: 08/14/18 13:24 Dose: 25 mg Clopidogrel Bisulfate (Plavix) 75 mg PO DAILY [facility] Last Admin: 08/14/18 09:53 Dose: 75 mg Donepezil HCl (Aricept) 10 mg PO HS [facility] Last Admin: 08/14/18 22:03 Dose: 10 mg Famotidine (Pepcid) 20 mg PO DAILY [facility] Last Admin: 08/14/18 09:53 Dose: 20 mg Heparin Sodium (Porcine) (Heparin) 5,000 units SC Q12 [facility] Last Admin: 08/14/18 22:03 Dose: 5,000 units Hydralazine HCl (Apresoline) 25 mg PO BID [facility] Last Admin: 08/14/18 19:10 Dose: 25 mg Sodium Chloride (Sodium Chloride 0.9%) 1,000 mls @ 40 mls/hr IV .Q24H [facility] Last Admin: 08/14/18 14:51 Dose: Not Given Insulin Aspart (Novolog) 0 unit SC ACHS [facility] Last Admin: 08/14/18 21:15 Dose: Not Given Insulin Aspart (Novolog) 18 unit SC AC [facility] Last Admin: 08/14/18 19:04 Dose: Not Given Insulin Glargine (Lantus) 34 unit SC HS [facility] Last Admin: 08/14/18 22:06 Dose: 34 units Montelukast Sodium (Singulair) 10 mg PO DAILY [facility] Last Admin: 08/14/18 09:53 Dose: 10 mg Oxybutynin Chloride (Ditropan Tab) 5 mg PO DAILY [facility] Last Admin: 08/14/18 09:55 Dose: 5 mg Quetiapine Fumarate (Seroquel) 25 mg PO DAILY [facility] Last Admin: 08/14/18 09:53 Dose: 25 mg Rosuvastatin Calcium (Crestor) 5 mg PO HS [facility] Last Admin: 08/14/18 22:03 Dose: 5 mg Sevelamer Carbonate (Renvela) 800 mg PO TIDCC [facility] Last Admin: 08/14/18 19:05 Dose: Not Given Vitamin B Complex/Vit C/Folic Acid (Nephro-Marina) 1 tab PO DAILY [facility] Last Admin: 08/14/18 09:55 Dose: 1 tab Results - Vital Signs Recent Vital Signs: Last Vital Signs Temp 97.9 F 08/14/18 15:00 Pulse 66 08/14/18 19:11 Resp 20 08/14/18 15:00 BP 135/71 08/14/18 19:11 Pulse Ox 97 08/14/18 15:00 - Labs Result Diagrams: 08/14/18 07:37 08/14/18 07:37 Labs: Laboratory Results - last 24 hr 08/14/18 08/14/18 08/14/18 06:15 07:37 07:37 WBC 5.4 RBC 4.41 Hgb 12.1 Hct 37.2 MCV 84.5 MCH 27.4 MCHC 32.4 L RDW 15.9 H Plt Count 165 MPV 10.7 Neut % (Auto) 49.4 L Lymph % (Auto) 36.3 [place] % (Auto) 10.7 H Eos % (Auto) 2.6 Baso % (Auto) 1.0 Neut # (Auto) 2.7 Lymph # (Auto) 2.0 [place] # (Auto) 0.6 Eos # (Auto) 0.1 Baso # (Auto) 0.1 ESR 26 H Sodium 141 Potassium 4.2 Chloride 104 Carbon Dioxide 23 BUN 50 H POC Glucose (mg/dL) 221 H Ammonia Troponin I 0.1160 Vitamin B12 889 Folate 12.9 Prolactin 115.9 H 08/14/18 08/14/18 08/14/18 07:37 12:59 15:35 WBC RBC Hgb Hct MCV MCH MCHC RDW Plt Count MPV Neut % (Auto) Lymph % (Auto) [place] % (Auto) Eos % (Auto) Baso % (Auto) Neut # (Auto) Lymph # (Auto) [place] # (Auto) Eos # (Auto) Baso # (Auto) ESR Sodium Potassium Chloride Carbon Dioxide BUN POC Glucose (mg/dL) 475 H* 375 H Ammonia < 9 L Troponin I Vitamin B12 Folate Prolactin 08/14/18 08/14/18 16:58 21:06 WBC RBC Hgb Hct MCV MCH MCHC RDW Plt Count MPV Neut % (Auto) Lymph % (Auto) [place] % (Auto) Eos % (Auto) Baso % (Auto) Neut # (Auto) Lymph # (Auto) [place] # (Auto) Eos # (Auto) Baso # (Auto) ESR Sodium Potassium Chloride Carbon Dioxide BUN POC Glucose (mg/dL) 241 H 218 H Ammonia Troponin I Vitamin B12 Folate Prolactin Assessment & Plan - Assessment and Plan (Free Text) Assessment: ESRD ON HD .. WILL C./O HD AN IN PT ANEMIA OF CKD .. H/H STABLE ELECTROLYTES ABN UNCONTROLED DM MMP P : MAINTAIN HD ON C/O CURRENT MEDS RENAL AND DIABETIC DIET ENDO CONSULT WILL F/U CLOSELY ALONG WITH YOU - Date & Time Date: 08/14/18 Time: 16:00
--- NOTE | 2018-08-14 23:53 | CP.PCM.PN ---
Subjective - Date & Time of Evaluation Date of Evaluation: 08/14/18 Time of Evaluation: 20:45 - Subjective Subjective: Patient has no complaint. Alert, oriented x 3, in no respiratory distress. Blood glucose better controlled. Is receiving HD. Echo: mild LVH with normal systolic wall motion and a grade I LV diastolic dysfunction. Mild thickening of the aortic valve with mild aortic insufficiency. Mild MR and TR present. Serum TNI: Normal. ECG: RSR, LVH with secondary ST-T wave change. No acute change. Objective - Vital Signs/Intake and Output Vital Signs (last 24 hours): Temp Pulse Resp BP Pulse Ox 97.9 F 66 20 135/71 97 08/14/18 15:00 08/14/18 19:11 08/14/18 15:00 08/14/18 19:11 08/14/18 15:00 Intake and Output: 08/14/18 08/15/18 18:59 06:59 Intake Total 480 Output Total 600 Balance -120 - Medications Medications: Current Medications Albuterol Sulfate (Albuterol 0.083% Inhal Luisa (2.5 Mg/3 Ml) Ud) 2.5 mg INH RQ6 [facility] Last Admin: 08/14/18 20:22 Dose: Not Given Aspirin (Aspirin Chewable) 81 mg PO DAILY [facility] Last Admin: 08/14/18 09:53 Dose: 81 mg Atenolol (Tenormin) 25 mg PO DAILY [facility] Last Admin: 08/14/18 13:24 Dose: 25 mg Clopidogrel Bisulfate (Plavix) 75 mg PO DAILY [facility] Last Admin: 08/14/18 09:53 Dose: 75 mg Donepezil HCl (Aricept) 10 mg PO HS [facility] Last Admin: 08/14/18 22:03 Dose: 10 mg Famotidine (Pepcid) 20 mg PO DAILY [facility] Last Admin: 08/14/18 09:53 Dose: 20 mg Heparin Sodium (Porcine) (Heparin) 5,000 units SC Q12 [facility] Last Admin: 08/14/18 22:03 Dose: 5,000 units Hydralazine HCl (Apresoline) 25 mg PO BID [facility] Last Admin: 08/14/18 19:10 Dose: 25 mg Sodium Chloride (Sodium Chloride 0.9%) 1,000 mls @ 40 mls/hr IV .Q24H [facility] Last Admin: 08/14/18 14:51 Dose: Not Given Insulin Aspart (Novolog) 0 unit SC ACHS [facility] Last Admin: 08/14/18 21:15 Dose: Not Given Insulin Aspart (Novolog) 18 unit SC AC [facility] Last Admin: 08/14/18 19:04 Dose: Not Given Insulin Glargine (Lantus) 34 unit SC HS [facility] Last Admin: 08/14/18 22:06 Dose: 34 units Montelukast Sodium (Singulair) 10 mg PO DAILY [facility] Last Admin: 08/14/18 09:53 Dose: 10 mg Oxybutynin Chloride (Ditropan Tab) 5 mg PO DAILY [facility] Last Admin: 08/14/18 09:55 Dose: 5 mg Quetiapine Fumarate (Seroquel) 25 mg PO DAILY [facility] Last Admin: 08/14/18 09:53 Dose: 25 mg Rosuvastatin Calcium (Crestor) 5 mg PO HS [facility] Last Admin: 08/14/18 22:03 Dose: 5 mg Sevelamer Carbonate (Renvela) 800 mg PO TIDCC [facility] Last Admin: 08/14/18 19:05 Dose: Not Given Vitamin B Complex/Vit C/Folic Acid (Nephro-Marina) 1 tab PO DAILY [facility] Last Admin: 08/14/18 09:55 Dose: 1 tab - Labs Labs: 08/14/18 07:37 08/14/18 07:37 - Constitutional Appears: No Acute Distress, Chronically Ill - Head Exam Head Exam: NORMAL INSPECTION - Eye Exam Eye Exam: Normal appearance - ENT Exam ENT Exam: Normal Exam - Respiratory Exam Respiratory Exam: Clear to Ausculation Bilateral, NORMAL BREATHING PATTERN - Cardiovascular Exam Cardiovascular Exam: REGULAR RHYTHM - GI/Abdominal Exam GI & Abdominal Exam: Soft, Normal Bowel Sounds - Rectal Exam Rectal Exam: Deferred - Extremities Exam Extremities Exam: Normal Inspection - Back Exam Back Exam: NORMAL INSPECTION - Neurological Exam Neurological Exam: Alert, Awake, Oriented x3 - Psychiatric Exam Psychiatric exam: Anxious - Skin Skin Exam: Erythema, Intact, Normal Color Assessment and Plan (1) Uncontrolled insulin dependent diabetes mellitus Status: Acute (2) Acute confusion Status: Resolved (3) Elevated troponin I level Status: Acute (4) Dependent on hemodialysis Status: Acute
--- NOTE | 2018-08-15 01:11 | PN ---
DATE: 08/14/2018 LOCATION: Room 656. SUBJECTIVE: This is an 82-year-old female with recent uncontrolled type 2 insulin-requiring diabetes, now being followed closely for metabolic management. Her glycemic levels are fluctuating especially as noted today with glucose levels ranging from 375 to 475 mg/dL. Her latest glucose values tonight have ranged from 218 to 241 mg/dL. Her prolactin level is 115.9, but this is expected with impaired GFR as noted thereof. PLAN: So at this time, we will modify once again her basal and bolus insulin regimen and increase the NovoLog to 18 units subcu t.i.d. before meals to start today. We will also increase the basal insulin with Lantus to be given 34 units subcu at bedtime daily to start tonight. We will continue the modified coverage scale using NovoLog insulin to obviate hypoglycemia and detailed orders have been given. We will obtain serial chemistries and supplement accordingly as needed. We will follow. Bella Gold MD
[2018-08-15] MEDS: Albuterol 0.083% Inhal Sol (2.5 mg/3 mL) UD INH SCH ×4 (01:15→19:56)
--- NOTE | 2018-08-15 02:21 | CON ---
DATE: 08/14/2018 HISTORY OF PRESENT ILLNESS: This is an 82-year-old lady with history of cardiac arrhythmias, bronchitis, asthma, arthritis, COPD with an emphysema, CHF, dementia, depression, diabetes type 2, and chronic renal disease as well as TIA, end-stage renal disease, is now admitted with altered mental status. She was found on the floor outside of her apartment, and she was found to be confused. She was brought in by ambulance to the emergency room. She was reported to have missed her dialysis yesterday because she was not feeling well. She did not complain of chest pain, and she did not have hemoptysis or vomiting. She has slight cough. ALLERGIES: SHE HAS HAD NO HISTORY OF ALLERGIES. SOCIAL HISTORY: She was an ex-smoker with no history of alcohol use. FAMILY HISTORY: There was no significant family history reported. REVIEW OF SYSTEMS: Systemic review revealed history of COPD, emphysema, cardiac arrhythmias, CHF, arthritis, diabetes mellitus, depression, dementia, and end-stage renal disease. There were no seizures. No vomiting. Musculoskeletal system, general weakness. PHYSICAL EXAMINATION: GENERAL: She is drowsy, vaguely responses to persons, does not want to hold long conversation. VITAL SIGNS: She is afebrile with blood pressure of 148/74, pulse 66, respirations 20, and hemoglobin oxygen saturation 98% reported on room air. LABORATORY DATA: Her white count is 5400, hemoglobin 12.1, platelet count 165,000, sed rate is 26. Her arterial blood gases on room air showed pH of 7.49, pCO2 of 37, pO2 of 70, bicarbonate of 28, hemoglobin oxygen saturation of 97%. Serum sodium 141, potassium 4.2, chloride 104, carbon dioxide 23, BUN 15, creatinine 4.75, blood sugar 221. Troponin 0.11. Prolactin 115.9. Chest x-ray shows poor inspiratory in the supine posture with an apparently large heart with superoinferior dimensions and small basal haze and blunting of the left costophrenic angle, suggesting possible small pleural effusion. IMPRESSION: Respiratory insufficiency, coronary artery disease, cardiac arrhythmias, congestive heart failure, diabetes mellitus, chronic obstructive pulmonary disease, arthritis, depression, dementia, and end-stage renal disease. PLAN AND RECOMMENDATIONS: Please continue with current regimen and customer relations consultant's recommendations, and continue with bronchodilators, oxygen therapy, and DVT prophylaxis. We will follow with you. Francisco Javier Guaman MD
--- NOTE | 2018-08-15 05:58 | CARD ---
APPROVED REPORT Date of service: 08/14/2018 EXAM: Two-dimensional and M-mode echocardiogram with Doppler and color Doppler. Other Information Quality : GoodRhythm : INDICATION Abnormal EKG/Arrhythmia CVA/TIA Dyspnea RISK FACTORS Hypertension Hyperlipidemia Diabetes 2D DIMENSIONS IVSd1.1 (0.7-1.1cm)Aortic Root (2D)2.8 (2.0-3.7cm) LVDd4.7 (3.9-5.9cm)PWd1.1 (0.7-1.1cm) LA [id number] (18-58mL)LVDs3.0 (2.5-4.0cm) FS (%) 36.0 %LVEF (%)65.6 (>50%) LVEF (Chris's)65 %IVC0.00 cm M-Mode DIMENSIONS Left Atrium (MM)4.58 (2.5-4.0cm)IVSd0.94 (0.7-1.1cm) Aortic Root2.50 (2.2-3.7cm)LVDd5.21 (4.0-5.6cm) Aortic Cusp Exc.0.97 (1.5-2.0cm)PWd0.90 (0.7-1.1cm) FS (%) 40 %LVDs3.12 (2.0-3.8cm) LVEF (%)70 (>50%) Aortic Valve AI P 1/2 [id number] Mitral Valve MV E Qoijbohk48.5cm/sMV A Wcggoanr084.9cm/sE/A ratio0.7 TDI Lateral E' Peak V4.54cm/sMedial E' Peak V4.54cm/sE/Lateral E'18.0 E/Medial E'18.0 Tricuspid Valve TR Peak [id number] Peak [id number] LEFT VENTRICLE The left ventricle is normal size. There is normal left ventricular wall thickness. Left ventricle systolic function is normal. The Ejection Fraction is >70%. There is normal LV segmental wall motion. Tissue Doppler imaging reveals abnormal left ventricular diastolic dysfunction. RIGHT VENTRICLE The right ventricle is normal size. There is normal right ventricular wall thickness. The right ventricular systolic function is normal. ATRIA The left atrium size is normal. The right atrium size is normal. The interatrial septum is intact with no evidence for an atrial septal defect. AORTIC VALVE The aortic valve is normal in structure. There is mild aortic regurgitation. There is no aortic valvular stenosis. There is no aortic valvular vegetation. MITRAL VALVE The mitral valve is normal in structure. There is no evidence of mitral valve prolapse. There is no mitral valve stenosis. Mitral regurgitation is mild. TRICUSPID VALVE The tricuspid valve is normal in structure. There is mild tricuspid regurgitation. Right ventricular systolic pressure is estimated at less than 30 mmHg. There is no pulmonary hypertension. PULMONIC VALVE The pulmonic valve is not well visualized. There is trace pulmonic valvular regurgitation. GREAT VESSELS The aortic root is normal in size. PERICARDIAL EFFUSION There is no significant pericardial effusion. <Conclusion> Left ventricle systolic function is normal. The Ejection Fraction is >70%. Diastolic dysfunction. Mitral regurgitation is mild. There is mild tricuspid regurgitation. There is no pulmonary hypertension. There is trace pulmonic valvular regurgitation.
[2018-08-15 06:51] LABS: BASO % 0.5 % (0.0-2.0); EOS # 0.3 K/uL (0.0-0.7); EOS % 5.1 % (0.0-4.0); HEMOGLOBIN 11.6 g/dL (11.0-16.0); LYMPH # 1.7 K/uL (1.0-4.3); LYMPH % 32.7 % (20.0-40.0); MEAN CORPUSCULAR HEMOGLOBIN 27.2 pg (27.0-31.0); MEAN CORPUSCULAR HGB CONC 32.4 g/dL (33.0-37.0); MEAN PLATELET VOLUME 10.3 fL (7.2-11.7); MONO # 0.6 K/uL (0.0-0.8); MONO % 11.5 % (0.0-10.0); NEUT # 2.6 K/uL (1.8-7.0); NEUT % 50.2 % (50.0-75.0); NRBC % 0.1 % (0.0-2.0); RBC 4.25 Mil/uL (3.80-5.20); RED CELL DISTRIBUTION WIDTH 15.5 % (11.5-14.5); WHITE BLOOD COUNT 5.1 K/uL (4.8-10.8)
[2018-08-15] MEDS: (Novolog) Insulin Aspart, Recombinant 100 u/ml 10 ml vial SC SCH ×7 (07:52→21:51)
[2018-08-15] MEDS: Multivitamin Vitamin B Complex (Nephro-Vite) Tab PO SCH (09:11)
--- NOTE | 2018-08-15 14:03 | CP.PCM.CON ---
History of Present Illness - History of Present Illness History of Present Illness: 82 yo female was found lying in front of her apartment, confused. Brought to the ED at [facility], her blood glucose was 750, TNI: 0.15 BUN: 75 and creatinine : 4.5. She is known to have an IDDM, a HPTN, an ESRD on HD, a senile dementia. She lives alone. She was given Insulin and IVF fluid in the ED. She denies any chest pain, but has not felt well recently and had missed her hemodialysis. A head CT was essentially normal. a CXR was normal. ECG revealed an RSR with LVH and secondary ST-T wave change. Admitted for uncontrolled BSs s/p dialysis 08/[address] Mccracken and patient- they request switch to my dialysis service Review of Systems - Constitutional Constitutional: Malaise, Weakness - EENT Eyes: Blurred Vision, Decreased Night Vision Nose/Mouth/Throat: absent: As Per HPI, Epistaxis, Nasal Congestion, Nasal Discharge, Nasal Obstruction, Nasal Trauma, Nose Pain, Post Nasal Drip, Sinus Pain, Sinus Pressure, Bleeding Gums, Change in Voice, Dental Pain, Dry Mouth, Dysphagia, Halitosis, Hoarsness, Lip Swelling, Mouth Lesions, Mouth Pain, Odynophagia, Sore Throat, Throat Swelling, Tongue Swelling, Facial Pain, Neck Pain, Neck Mass, Other - Cardiovascular Cardiovascular: Dyspnea on Exertion, Lightheadedness - Respiratory Respiratory: Cough, Dyspnea on Exertion - Gastrointestinal Gastrointestinal: Constipation, Early Satiety - Genitourinary Genitourinary: As Per HPI - Musculoskeletal Musculoskeletal: Muscle Weakness, Myalgias - Neurological Neurological: Dizziness, Weakness - Endocrine Endocrine: As Per HPI Past Patient History - Infectious Disease Hx of Infectious Diseases: None - Tetanus Immunizations Tetanus Immunization: Unknown, Up to Date - Past Medical History & Family History Past Medical History?: Yes Past Family History: Reviewed and not pertinent - Past Social History Smoking Status: Never Smoked Chewing Tobacco Use: No Cigar Use: No Alcohol: None Drugs: Denies Home Situation {Lives}: Alone - CARDIAC Hx Cardiac Disorders: Yes Hx Congestive Heart Failure: Yes Hx Hypercholesterolemia: Yes Hx Hypertension: Yes - PULMONARY Hx Chronic Obstructive Pulmonary Disease (COPD): Yes (Emphysema,) - NEUROLOGICAL Hx Neurological Disorder: Yes Hx Dementia: Yes Hx Migraine: Yes Hx Transient Ischemic Attacks (TIA): Yes - HEENT Hx HEENT Problems: Yes Hx Blind: Yes (Left eye.) - RENAL Hx Chronic Kidney Disease: Yes Date of Last Dialysis Treatment: 08/08/18 - ENDOCRINE/METABOLIC Hx Diabetes Mellitus Type 2: Yes - HEMATOLOGICAL/ONCOLOGICAL Hx Blood Disorders: No - INTEGUMENTARY Hx Dermatological Problems: Yes Hx Cellulitis: Yes Hx Eczema: Yes - MUSCULOSKELETAL/RHEUMATOLOGICAL Hx Arthritis: Yes - GASTROINTESTINAL Hx Gastrointestinal Disorders: Yes Hx Gastroesophageal Reflux: Yes Hx Hemorrhoids: Yes - GENITOURINARY/GYNECOLOGICAL Hx Genitourinary Disorders: Yes Hx Urinary Tract Infection: Yes - PSYCHIATRIC Hx Psychophysiologic Disorder: Yes Hx Anxiety: Yes Hx Depression: Yes Hx Substance Use: No - SURGICAL HISTORY Hx Surgeries: Yes Hx Arteriovenous Shunt: Yes (right arm) - ANESTHESIA Hx Anesthesia: Yes Hx Anesthesia Reactions: No Hx Malignant Hyperthermia: No Meds Allergies/Adverse Reactions: Allergies Allergy/AdvReac Type Severity Reaction Status Date / Time No Known Allergies Allergy Verified 04/09/18 13:05 - Medications Medications: Current Medications Albuterol Sulfate (Albuterol 0.083% Inhal Luisa (2.5 Mg/3 Ml) Ud) 2.5 mg INH RQ6 [facility] Last Admin: 08/15/18 13:20 Dose: 2.5 mg Aspirin (Aspirin Chewable) 81 mg PO DAILY [facility] Last Admin: 08/15/18 09:11 Dose: 81 mg Atenolol (Tenormin) 25 mg PO DAILY [facility] Clopidogrel Bisulfate (Plavix) 75 mg PO DAILY [facility] Last Admin: 08/15/18 09:11 Dose: 75 mg Donepezil HCl (Aricept) 10 mg PO HS [facility] Last Admin: 08/14/18 22:03 Dose: 10 mg Famotidine (Pepcid) 20 mg PO DAILY [facility] Last Admin: 08/15/18 09:11 Dose: 20 mg Heparin Sodium (Porcine) (Heparin) 5,000 units SC Q12 [facility] Last Admin: 08/15/18 09:11 Dose: 5,000 units Hydralazine HCl (Apresoline) 25 mg PO BID [facility] Last Admin: 08/15/18 09:12 Dose: Not Given Sodium Chloride (Sodium Chloride 0.9%) 1,000 mls @ 40 mls/hr IV .Q24H [facility] Last Admin: 08/14/18 14:51 Dose: Not Given Insulin Aspart (Novolog) 0 unit SC ACHS [facility] Last Admin: 08/15/18 11:34 Dose: Not Given Insulin Aspart (Novolog) 18 unit SC AC [facility] Last Admin: 08/15/18 13:46 Dose: 18 units Insulin Glargine (Lantus) 34 unit SC HS [facility] Last Admin: 08/14/18 22:06 Dose: 34 units Montelukast Sodium (Singulair) 10 mg PO DAILY [facility] Last Admin: 08/15/18 09:11 Dose: 10 mg Oxybutynin Chloride (Ditropan Tab) 5 mg PO DAILY [facility] Last Admin: 08/15/18 09:13 Dose: 5 mg Quetiapine Fumarate (Seroquel) 25 mg PO DAILY [facility] Rosuvastatin Calcium (Crestor) 5 mg PO HS [facility] Last Admin: 08/14/18 22:03 Dose: 5 mg Sevelamer Carbonate (Renvela) 800 mg PO TIDCC [facility] Last Admin: 08/15/18 13:46 Dose: 800 mg Vitamin B Complex/Vit C/Folic Acid (Nephro-Marina) 1 tab PO DAILY [facility] Last Admin: 08/15/18 09:11 Dose: 1 tab Physical Exam - Constitutional Appears: No Acute Distress, Confused, Chronically Ill - Head Exam Head Exam: ATRAUMATIC, NORMAL INSPECTION - Eye Exam Eye Exam: EOMI, Normal appearance - Neck Exam Neck exam: Positive for: Normal Inspection. Negative for: Tenderness - Respiratory Exam Respiratory Exam: Rhonchi, NORMAL BREATHING PATTERN - Cardiovascular Exam Cardiovascular Exam: REGULAR RHYTHM, +S1 - GI/Abdominal Exam GI & Abdominal Exam: Soft. absent: Tenderness - Extremities Exam Extremities exam: Positive for: normal inspection. Negative for: pedal edema - Neurological Exam Neurological exam: Alert, CN II-XII Intact - Skin Skin Exam: Dry, Warm Results - Vital Signs Recent Vital Signs: Last Vital Signs Temp 97.6 F 08/15/18 09:45 Pulse 61 08/15/18 09:45 Resp 16 08/15/18 09:45 BP 113/57 L 08/15/18 11:30 Pulse Ox 98 08/15/18 09:45 - Labs Result Diagrams: 08/15/18 06:34 08/15/18 06:34 Labs: Laboratory Results - last 24 hr 08/14/18 08/14/18 08/14/18 15:35 16:58 21:06 WBC RBC Hgb Hct MCV MCH MCHC RDW Plt Count MPV Neut % (Auto) Lymph % (Auto) [place] % (Auto) Eos % (Auto) Baso % (Auto) Neut # (Auto) Lymph # (Auto) [place] # (Auto) Eos # (Auto) Baso # (Auto) Sodium Potassium Chloride Carbon Dioxide BUN POC Glucose (mg/dL) 375 H 241 H 218 H 08/15/18 08/15/18 08/15/18 06:34 06:34 11:09 WBC 5.1 RBC 4.25 Hgb 11.6 Hct 35.7 MCV 84.0 MCH 27.2 MCHC 32.4 L RDW 15.5 H Plt Count 157 MPV 10.3 Neut % (Auto) 50.2 Lymph % (Auto) 32.7 [place] % (Auto) 11.5 H Eos % (Auto) 5.1 H Baso % (Auto) 0.5 Neut # (Auto) 2.6 Lymph # (Auto) 1.7 [place] # (Auto) 0.6 Eos # (Auto) 0.3 Baso # (Auto) 0.0 Sodium 136 Potassium 5.1 Chloride 103 Carbon Dioxide 23 BUN 65 H POC Glucose (mg/dL) 132 H Assessment & Plan (1) Uncontrolled diabetes mellitus due to underlying condition with diabetic arthropathy Status: Acute (2) Type 2 diabetes mellitus with diabetic nephropathy Status: Acute (3) ESRD (end stage renal disease) Status: Acute - Assessment and Plan (Free Text) Plan: dialysis TTS Agree with BS control Outpt dialysis when stable
[2018-08-15 16:13] VITALS: RESP 20
[2018-08-15] MEDS: (Lantus) Insulin Glargine, Recombinant SC SCH (21:49)
--- NOTE | 2018-08-15 22:29 | CP.PCM.PN ---
Subjective - Date & Time of Evaluation Date of Evaluation: 08/15/18 Time of Evaluation: 13:10 - Subjective Subjective: patient patient is less confused today. She is more oriented and communicating with her daughter. Blood glucose is still elevated ranging from 250-378. She denies any chest pain. Troponin levels have been elevated. Dr. Ji is on consult for cardiology. Objective - Vital Signs/Intake and Output Vital Signs (last 24 hours): Temp Pulse Resp BP Pulse Ox 98.5 F 65 20 120/58 L 98 08/15/18 15:00 08/15/18 15:00 08/15/18 15:00 08/15/18 17:54 08/15/18 15:00 Intake and Output: 08/15/18 08/16/18 18:59 06:59 Intake Total 360 Balance 360 - Medications Medications: Current Medications Albuterol Sulfate (Albuterol 0.083% Inhal Luisa (2.5 Mg/3 Ml) Ud) 2.5 mg INH RQ6 [facility] Last Admin: 08/15/18 19:56 Dose: 2.5 mg Aspirin (Aspirin Chewable) 81 mg PO DAILY [facility] Last Admin: 08/15/18 09:11 Dose: 81 mg Atenolol (Tenormin) 25 mg PO DAILY [facility] Last Admin: 08/15/18 14:00 Dose: 25 mg Clopidogrel Bisulfate (Plavix) 75 mg PO DAILY [facility] Last Admin: 08/15/18 09:11 Dose: 75 mg Donepezil HCl (Aricept) 10 mg PO HS [facility] Last Admin: 08/15/18 21:50 Dose: 10 mg Famotidine (Pepcid) 20 mg PO DAILY [facility] Last Admin: 08/15/18 09:11 Dose: 20 mg Heparin Sodium (Porcine) (Heparin) 5,000 units SC Q12 [facility] Last Admin: 08/15/18 21:50 Dose: 5,000 units Hydralazine HCl (Apresoline) 25 mg PO BID [facility] Last Admin: 08/15/18 17:48 Dose: 25 mg Insulin Aspart (Novolog) 0 unit SC ACHS [facility] Last Admin: 08/15/18 21:51 Dose: Not Given Insulin Aspart (Novolog) 18 unit SC AC [facility] Last Admin: 08/15/18 17:30 Dose: Not Given Insulin Glargine (Lantus) 34 unit SC HS [facility] Last Admin: 08/15/18 21:49 Dose: 34 units Montelukast Sodium (Singulair) 10 mg PO DAILY [facility] Last Admin: 08/15/18 09:11 Dose: 10 mg Oxybutynin Chloride (Ditropan Tab) 5 mg PO DAILY [facility] Last Admin: 08/15/18 09:13 Dose: 5 mg Quetiapine Fumarate (Seroquel) 25 mg PO DAILY [facility] Last Admin: 08/15/18 21:50 Dose: 25 mg Rosuvastatin Calcium (Crestor) 5 mg PO [facility] Last Admin: 08/15/18 21:49 Dose: 5 mg Sevelamer Carbonate (Renvela) 800 mg PO TIDCC [facility] Last Admin: 08/15/18 17:48 Dose: 800 mg Vitamin B Complex/Vit C/Folic Acid (Nephro-Marina) 1 tab PO DAILY [facility] Last Admin: 08/15/18 09:11 Dose: 1 tab - Labs Labs: 08/15/18 06:34 08/15/18 06:34 - Constitutional Appears: Chronically Ill - Head Exam Head Exam: NORMOCEPHALIC - Eye Exam Eye Exam: Normal appearance Pupil Exam: NORMAL ACCOMODATION - ENT Exam ENT Exam: Normal Exam - Neck Exam Neck Exam: Normal Inspection - Respiratory Exam Respiratory Exam: Decreased Breath Sounds - Cardiovascular Exam Cardiovascular Exam: REGULAR RHYTHM - GI/Abdominal Exam GI & Abdominal Exam: Normal Bowel Sounds - Rectal Exam Rectal Exam: Deferred - Exam External exam: NORMAL EXTERNAL EXAM - Extremities Exam Extremities Exam: Normal Inspection - Back Exam Back Exam: NORMAL INSPECTION - Neurological Exam Neurological Exam: Oriented x3 - Psychiatric Exam Psychiatric exam: Depressed - Skin Skin Exam: Dry Assessment and Plan (1) Altered mental status Status: Acute (2) Chronic renal failure Status: Acute (3) Diabetes mellitus Status: Acute (4) ESRD (end stage renal disease) on dialysis Status: Acute (5) Elevated troponin I level Status: Acute (6) Uncontrolled diabetes mellitus Status: Acute
--- NOTE | 2018-08-15 23:28 | CP.PCM.PN ---
Subjective - Date & Time of Evaluation Date of Evaluation: 08/15/18 Time of Evaluation: 20:30 - Subjective Subjective: Patient is less confused, receiving HD, has no complaint of chest pain or SOB. Objective - Vital Signs/Intake and Output Vital Signs (last 24 hours): Temp Pulse Resp BP Pulse Ox 98.5 F 65 20 120/58 L 98 08/15/18 15:00 08/15/18 15:00 08/15/18 15:00 08/15/18 17:54 08/15/18 15:00 Intake and Output: 08/15/18 08/16/18 18:59 06:59 Intake Total 360 Balance 360 - Medications Medications: Current Medications Albuterol Sulfate (Albuterol 0.083% Inhal Luisa (2.5 Mg/3 Ml) Ud) 2.5 mg INH RQ6 [facility] Last Admin: 08/15/18 19:56 Dose: 2.5 mg Aspirin (Aspirin Chewable) 81 mg PO DAILY [facility] Last Admin: 08/15/18 09:11 Dose: 81 mg Atenolol (Tenormin) 25 mg PO DAILY [facility] Last Admin: 08/15/18 14:00 Dose: 25 mg Clopidogrel Bisulfate (Plavix) 75 mg PO DAILY [facility] Last Admin: 08/15/18 09:11 Dose: 75 mg Donepezil HCl (Aricept) 10 mg PO HS [facility] Last Admin: 08/15/18 21:50 Dose: 10 mg Famotidine (Pepcid) 20 mg PO DAILY [facility] Last Admin: 08/15/18 09:11 Dose: 20 mg Heparin Sodium (Porcine) (Heparin) 5,000 units SC Q12 [facility] Last Admin: 08/15/18 21:50 Dose: 5,000 units Hydralazine HCl (Apresoline) 25 mg PO BID [facility] Last Admin: 08/15/18 17:48 Dose: 25 mg Insulin Aspart (Novolog) 0 unit SC ACHS [facility] Last Admin: 08/15/18 21:51 Dose: Not Given Insulin Aspart (Novolog) 18 unit SC AC [facility] Last Admin: 08/15/18 17:30 Dose: Not Given Insulin Glargine (Lantus) 34 unit SC HS [facility] Last Admin: 08/15/18 21:49 Dose: 34 units Montelukast Sodium (Singulair) 10 mg PO DAILY [facility] Last Admin: 08/15/18 09:11 Dose: 10 mg Oxybutynin Chloride (Ditropan Tab) 5 mg PO DAILY [facility] Last Admin: 08/15/18 09:13 Dose: 5 mg Quetiapine Fumarate (Seroquel) 25 mg PO DAILY [facility] Last Admin: 08/15/18 21:50 Dose: 25 mg Rosuvastatin Calcium (Crestor) 5 mg PO HS [facility] Last Admin: 08/15/18 21:49 Dose: 5 mg Sevelamer Carbonate (Renvela) 800 mg PO TIDCC [facility] Last Admin: 08/15/18 17:48 Dose: 800 mg Vitamin B Complex/Vit C/Folic Acid (Nephro-Marina) 1 tab PO DAILY [facility] Last Admin: 08/15/18 09:11 Dose: 1 tab - Labs Labs: 08/15/18 06:34 08/15/18 06:34 - Constitutional Appears: No Acute Distress, Chronically Ill - Head Exam Head Exam: NORMOCEPHALIC - Eye Exam Eye Exam: Normal appearance - ENT Exam ENT Exam: Normal Exam - Neck Exam Neck Exam: Normal Inspection - Respiratory Exam Respiratory Exam: Clear to Ausculation Bilateral, NORMAL BREATHING PATTERN - Cardiovascular Exam Cardiovascular Exam: REGULAR RHYTHM - GI/Abdominal Exam GI & Abdominal Exam: Soft, Normal Bowel Sounds - Rectal Exam Rectal Exam: Deferred - Extremities Exam Extremities Exam: Normal Inspection - Back Exam Back Exam: NORMAL INSPECTION - Neurological Exam Neurological Exam: Alert, Awake, Oriented x3 - Psychiatric Exam Psychiatric exam: Anxious - Skin Skin Exam: Dry, Intact, Normal Color, Warm Assessment and Plan (1) Uncontrolled insulin dependent diabetes mellitus Status: Acute (2) Acute confusion Status: Resolved (3) Elevated troponin I level Status: Resolved (4) Dependent on hemodialysis Assessment & Plan: HD as per Nephrologists. Status: Acute
--- NOTE | 2018-08-15 23:55 | CARD ---
APPROVED REPORT Date of service: 08/14/2018 EKG Measurement Heart [id number] <Conclusion> Normal sinus rhythm Possible Left atrial enlargement Left anterior fascicular block Left ventricular hypertrophy Cannot rule out Septal infarct, age undetermined Abnormal ECG
[2018-08-16] MEDS: Albuterol 0.083% Inhal Sol (2.5 mg/3 mL) UD INH SCH ×4 (02:05→19:24)
--- NOTE | 2018-08-16 03:03 | PN ---
DATE: 08/15/2018 ENDOCRINOLOGY FOLLOWUP NOTE LOCATION: Room 656. SUBJECTIVE: This is an 82-year-old female with recent uncontrolled type 2 insulin-requiring diabetes, now being followed closely for metabolic management. Her glycemic levels are fluctuating, but improved, and the glucose values overnight have ranged from 110-132 and 251 mg per dL. Her morning glucose; however, today was 368 and it was 218 at bedtime last night. Her latest chemistry showed a BUN of 65, sodium 136, potassium 5.1, chloride 103, CO2 of 23, and there was no creatinine done at this time. So at this time, we will modify her current basal and bolus insulin regimen to optimize metabolic control. We will increase the Lantus to 34 units subcutaneously at bedtime daily to start tonight. We will also increase her NovoLog to be given as 18 units subcutaneously t.i.d. before meals as started this morning. We will continue the low dose correction scale using NovoLog insulin to obviate hypoglycemia, and detailed orders have been given. We will follow. Bella Gold MD
[2018-08-16] MEDS: (Novolog) Insulin Aspart, Recombinant 100 u/ml 10 ml vial SC SCH ×6 (08:11→21:12)
--- NOTE | 2018-08-16 08:46 | CP.PCM.PN ---
Subjective - Date & Time of Evaluation Date of Evaluation: 08/15/18 Time of Evaluation: 14:00 - Subjective Subjective: SEEN ON RENAL F/U JUST RETURNED FROM HER HD DAUGHTER ON THE BED SIDE .CASE D/W HER PT IS FULLY ALERT AND ORIANTED .. FEELS MUCH BETTER ALL PREVIOUS EMR REVIEWED Objective - Vital Signs/Intake and Output Vital Signs (last 24 hours): Temp Pulse Resp BP Pulse Ox 97.4 F L 67 20 153/74 H 97 08/15/18 23:35 08/16/18 00:00 08/15/18 23:35 08/15/18 23:35 08/15/18 23:35 - Medications Medications: Current Medications Albuterol Sulfate (Albuterol 0.083% Inhal Luisa (2.5 Mg/3 Ml) Ud) 2.5 mg INH RQ6 [facility] Last Admin: 08/16/18 07:48 Dose: 2.5 mg Aspirin (Aspirin Chewable) 81 mg PO DAILY [facility] Last Admin: 08/15/18 09:11 Dose: 81 mg Atenolol (Tenormin) 25 mg PO DAILY [facility] Last Admin: 08/15/18 14:00 Dose: 25 mg Clopidogrel Bisulfate (Plavix) 75 mg PO DAILY [facility] Last Admin: 08/15/18 09:11 Dose: 75 mg Donepezil HCl (Aricept) 10 mg PO HS [facility] Last Admin: 08/15/18 21:50 Dose: 10 mg Famotidine (Pepcid) 20 mg PO DAILY [facility] Last Admin: 08/15/18 09:11 Dose: 20 mg Heparin Sodium (Porcine) (Heparin) 5,000 units SC Q12 [facility] Last Admin: 08/15/18 21:50 Dose: 5,000 units Hydralazine HCl (Apresoline) 25 mg PO BID [facility] Last Admin: 08/15/18 17:48 Dose: 25 mg Insulin Aspart (Novolog) 0 unit SC ACHS [facility] Last Admin: 08/16/18 08:11 Dose: Not Given Insulin Aspart (Novolog) 18 unit SC AC [facility] Last Admin: 08/16/18 08:30 Dose: 18 units Insulin Glargine (Lantus) 34 unit SC HS [facility] Last Admin: 08/15/18 21:49 Dose: 34 units Montelukast Sodium (Singulair) 10 mg PO DAILY [facility] Last Admin: 08/15/18 09:11 Dose: 10 mg Oxybutynin Chloride (Ditropan Tab) 5 mg PO DAILY [facility] Last Admin: 08/15/18 09:13 Dose: 5 mg Quetiapine Fumarate (Seroquel) 25 mg PO DAILY [facility] Last Admin: 08/15/18 21:50 Dose: 25 mg Rosuvastatin Calcium (Crestor) 5 mg PO HS [facility] Last Admin: 08/15/18 21:49 Dose: 5 mg Sevelamer Carbonate (Renvela) 800 mg PO TIDCC [facility] Last Admin: 08/16/18 08:39 Dose: 800 mg Vitamin B Complex/Vit C/Folic Acid (Nephro-Marina) 1 tab PO DAILY [facility] Last Admin: 08/15/18 09:11 Dose: 1 tab - Labs Labs: 08/15/18 06:34 08/16/18 06:28 Assessment and Plan - Assessment and Plan (Free Text) Assessment: ESRD ON HD ANEMIA OF CKD .. ON EPO ELECTROLYTES R [place] UNCONTROLED DM .. DR BROWN ON CASE MMP P : C/O CURRENT CARE C/O PRESENT MEDS C/O HD ON
--- NOTE | 2018-08-16 10:19 | CP.PCM.PN ---
Subjective - Date & Time of Evaluation Date of Evaluation: 08/16/18 Time of Evaluation: 10:17 - Subjective Subjective: pt seen and examined in chair comfortable no SOB some right shoulder pain had HD yesterday ROS- as per HPI, other than that 10 point ROS negative Objective - Vital Signs/Intake and Output Vital Signs (last 24 hours): Temp Pulse Resp BP Pulse Ox 97.4 F L 67 20 153/74 H 97 08/15/18 23:35 08/16/18 00:00 08/15/18 23:35 08/15/18 23:35 08/15/18 23:35 - Medications Medications: Current Medications Albuterol Sulfate (Albuterol 0.083% Inhal Luisa (2.5 Mg/3 Ml) Ud) 2.5 mg INH RQ6 [facility] Last Admin: 08/16/18 07:48 Dose: 2.5 mg Aspirin (Aspirin Chewable) 81 mg PO DAILY [facility] Last Admin: 08/15/18 09:11 Dose: 81 mg Atenolol (Tenormin) 25 mg PO DAILY [facility] Last Admin: 08/15/18 14:00 Dose: 25 mg Clopidogrel Bisulfate (Plavix) 75 mg PO DAILY [facility] Last Admin: 08/15/18 09:11 Dose: 75 mg Donepezil HCl (Aricept) 10 mg PO HS [facility] Last Admin: 08/15/18 21:50 Dose: 10 mg Famotidine (Pepcid) 20 mg PO DAILY [facility] Last Admin: 08/15/18 09:11 Dose: 20 mg Heparin Sodium (Porcine) (Heparin) 5,000 units SC Q12 [facility] Last Admin: 08/15/18 21:50 Dose: 5,000 units Hydralazine HCl (Apresoline) 25 mg PO BID [facility] Last Admin: 08/15/18 17:48 Dose: 25 mg Insulin Aspart (Novolog) 0 unit SC ACHS [facility] Last Admin: 08/16/18 08:11 Dose: Not Given Insulin Aspart (Novolog) 18 unit SC AC [facility] Last Admin: 08/16/18 08:30 Dose: 18 units Insulin Glargine (Lantus) 34 unit SC HS [facility] Last Admin: 08/15/18 21:49 Dose: 34 units Montelukast Sodium (Singulair) 10 mg PO DAILY [facility] Last Admin: 08/15/18 09:11 Dose: 10 mg Oxybutynin Chloride (Ditropan Tab) 5 mg PO DAILY [facility] Last Admin: 08/15/18 09:13 Dose: 5 mg Quetiapine Fumarate (Seroquel) 25 mg PO DAILY [facility] Last Admin: 08/15/18 21:50 Dose: 25 mg Rosuvastatin Calcium (Crestor) 5 mg PO HS [facility] Last Admin: 08/15/18 21:49 Dose: 5 mg Sevelamer Carbonate (Renvela) 800 mg PO TIDCC [facility] Last Admin: 08/16/18 08:39 Dose: 800 mg Vitamin B Complex/Vit C/Folic Acid (Nephro-Marina) 1 tab PO DAILY [facility] Last Admin: 08/15/18 09:11 Dose: 1 tab - Labs Labs: 08/15/18 06:34 08/16/18 06:28 - Constitutional Appears: Well, Non-toxic - Head Exam Head Exam: ATRAUMATIC, NORMOCEPHALIC - Eye Exam Eye Exam: EOMI, PERRL - ENT Exam ENT Exam: Mucous Membranes Moist - Neck Exam Neck Exam: Full ROM - Respiratory Exam Respiratory Exam: Clear to Ausculation Bilateral. absent: Rhonchi, Wheezes - Cardiovascular Exam Cardiovascular Exam: REGULAR RHYTHM, +S1, +S2 - GI/Abdominal Exam GI & Abdominal Exam: Soft. absent: Tenderness - Extremities Exam Extremities Exam: Full ROM. absent: Pedal Edema - Neurological Exam Neurological Exam: Alert, Awake, Oriented x3 - Psychiatric Exam Psychiatric exam: Normal Affect, Normal Mood - Skin Skin Exam: Normal Color, Warm Assessment and Plan (1) Dependent on hemodialysis Status: Acute (2) ESRD (end stage renal disease) Status: Acute (3) Type 2 diabetes mellitus with diabetic nephropathy Status: Acute (4) Arthralgia Status: Acute (5) Arthritis Status: Acute - Assessment and Plan (Free Text) Plan: HD MWF next HD saturday BP stable arthritis management as per Dr Kern
[2018-08-16] MEDS: Multivitamin Vitamin B Complex (Nephro-Vite) Tab PO SCH (10:23)
--- NOTE | 2018-08-16 16:10 | PN ---
DATE: 08/16/2018 ENDOCRINOLOGY FOLLOWUP NOTE LOCATION: In room 656. SUBJECTIVE: This is an 82-year-old female with recent uncontrolled type 2 insulin-requiring diabetes, now being followed closely for metabolic management. Her glycemic levels are fluctuating, but improved overnight as noted. Her glucose levels have ranged from 201 to 234 mg/dL. LABORATORY DATA: Her chemistries, which are incomplete, showed BUN of 45 with no creatinine level ordered, especially in a dialysis patient, which is quite strange at this time. Her potassium is 4, sodium 138, chloride 101, and CO2 of 27. ASSESSMENT AND PLAN: So at this time, we will modify once again her basal and bolus insulin regimen and increase the Lantus to 38 units subcutaneously at bedtime daily to start tonight. We will continue the low dose correction scale using NovoLog insulin as given. We will also continue the prandial insulin given as NovoLog at 18 units t.i.d. before meals as ordered. We will obtain serial chemistries and supplement accordingly as needed. We will follow. Bella Gold MD
--- NOTE | 2018-08-16 20:38 | CP.PCM.PN ---
Subjective - Date & Time of Evaluation Date of Evaluation: 08/16/18 Time of Evaluation: 15:35 - Subjective Subjective: patient is more responsive and less confused. Patient complains of shoulder pain. Glucose levels under better control. Patient denies any nausea, vomiting,chest pain or shortness of breath. Continue present supportive measures. Objective - Vital Signs/Intake and Output Vital Signs (last 24 hours): Temp Pulse Resp BP Pulse Ox 98.3 F 65 20 129/71 95 08/16/18 07:47 08/16/18 18:38 08/16/18 14:40 08/16/18 18:38 08/16/18 14:40 - Medications Medications: Current Medications Albuterol Sulfate (Albuterol 0.083% Inhal Luisa (2.5 Mg/3 Ml) Ud) 2.5 mg INH RQ6 [facility] Stop: 08/20/18 23:59 Last Admin: 08/16/18 19:24 Dose: 2.5 mg Aspirin (Aspirin Chewable) 81 mg PO DAILY [facility] Last Admin: 08/16/18 10:22 Dose: 81 mg Atenolol (Tenormin) 25 mg PO DAILY [facility] Last Admin: 08/16/18 10:24 Dose: 25 mg Clopidogrel Bisulfate (Plavix) 75 mg PO DAILY [facility] Last Admin: 08/16/18 10:23 Dose: 75 mg Donepezil HCl (Aricept) 10 mg PO HS [facility] Last Admin: 08/15/18 21:50 Dose: 10 mg Famotidine (Pepcid) 20 mg PO DAILY [facility] Last Admin: 08/16/18 10:23 Dose: 20 mg Heparin Sodium (Porcine) (Heparin) 5,000 units SC Q12 [facility] Last Admin: 08/16/18 10:22 Dose: 5,000 units Hydralazine HCl (Apresoline) 25 mg PO BID [facility] Last Admin: 08/16/18 18:36 Dose: 25 mg Insulin Aspart (Novolog) 0 unit SC ACHS [facility] Last Admin: 08/16/18 18:32 Dose: Not Given Insulin Aspart (Novolog) 18 unit SC AC [facility] Last Admin: 08/16/18 16:30 Dose: Not Given Insulin Glargine (Lantus) 38 unit SC HS [facility] Montelukast Sodium (Singulair) 10 mg PO DAILY [facility] Last Admin: 08/16/18 10:24 Dose: 10 mg Oxybutynin Chloride (Ditropan Tab) 5 mg PO DAILY [facility] Last Admin: 08/16/18 10:22 Dose: 5 mg Quetiapine Fumarate (Seroquel) 25 mg PO DAILY [facility] Last Admin: 08/16/18 10:24 Dose: 25 mg Rosuvastatin Calcium (Crestor) 5 mg PO HS [facility] Last Admin: 08/15/18 21:49 Dose: 5 mg Sevelamer Carbonate (Renvela) 800 mg PO TIDCC [facility] Last Admin: 08/16/18 18:36 Dose: 800 mg Vitamin B Complex/Vit C/Folic Acid (Nephro-Marina) 1 tab PO DAILY [facility] Last Admin: 08/16/18 10:23 Dose: 1 tab - Labs Labs: 08/15/18 06:34 08/16/18 06:28 - Constitutional Appears: Chronically Ill - Head Exam Head Exam: NORMOCEPHALIC - Eye Exam Eye Exam: Normal appearance Pupil Exam: NORMAL ACCOMODATION - ENT Exam ENT Exam: Normal Oropharynx - Neck Exam Neck Exam: Normal Inspection - Respiratory Exam Respiratory Exam: Decreased Breath Sounds - Cardiovascular Exam Cardiovascular Exam: REGULAR RHYTHM - GI/Abdominal Exam GI & Abdominal Exam: Normal Bowel Sounds - Rectal Exam Rectal Exam: Deferred - Exam External exam: NORMAL EXTERNAL EXAM - Extremities Exam Extremities Exam: Tenderness - Back Exam Back Exam: NORMAL INSPECTION - Neurological Exam Neurological Exam: Oriented x3 - Psychiatric Exam Psychiatric exam: Depressed - Skin Skin Exam: Dry Assessment and Plan (1) Altered mental status Status: Acute (2) Chronic renal failure Status: Acute (3) Diabetes mellitus Status: Acute (4) ESRD (end stage renal disease) on dialysis Status: Acute (5) Elevated troponin I level Status: Acute (6) Uncontrolled diabetes mellitus Status: Acute
[2018-08-16] MEDS ORDERED: (Lantus) Insulin Glargine, Recombinant SC SCH ×2 (22:00)
[2018-08-17] MEDS: Albuterol 0.083% Inhal Sol (2.5 mg/3 mL) UD INH SCH ×2 (01:00→07:50)
[2018-08-17 01:14] VITALS: O2SAT 97
[2018-08-17] MEDS ORDERED: (Novolog) Insulin Aspart, Recombinant 100 u/ml 10 ml vial SC SCH (07:30)
[2018-08-17 08:04] LABS: BASO % 0.8 % (0.0-2.0); EOS # 0.2 K/uL (0.0-0.7); EOS % 4.2 % (0.0-4.0); HEMOGLOBIN 11.9 g/dL (11.0-16.0); LYMPH # 1.7 K/uL (1.0-4.3); LYMPH % 34.9 % (20.0-40.0); MEAN CELL VOLUME 84.3 fL (81.0-99.0); MEAN CORPUSCULAR HEMOGLOBIN 27.6 pg (27.0-31.0); MEAN CORPUSCULAR HGB CONC 32.8 g/dL (33.0-37.0); MEAN PLATELET VOLUME 10.6 fL (7.2-11.7); MONO # 0.7 K/uL (0.0-0.8); MONO % 13.8 % (0.0-10.0); NEUT # 2.3 K/uL (1.8-7.0); NEUT % 46.3 % (50.0-75.0); NRBC % 0.1 % (0.0-2.0); RBC 4.3 Mil/uL (3.80-5.20); RED CELL DISTRIBUTION WIDTH 15.4 % (11.5-14.5)
[2018-08-17] MEDS: (Novolog) Insulin Aspart, Recombinant 100 u/ml 10 ml vial SC SCH (08:06)
[2018-08-17 08:10] LABS: ALB/GLOB RATIO 1.2 (1.0-2.1); ALBUMIN 3.4 g/dL (3.5-5.0); CALCIUM 9.2 mg/dl (8.6-10.4)
[2018-08-17 08:22] VITALS: BP 173/77; PULSE 66; TEMP 98.1
[2018-08-17] MEDS: Multivitamin Vitamin B Complex (Nephro-Vite) Tab PO SCH (11:37)
--- NOTE | 2018-08-17 12:31 | PN ---
DATE: 08/17/2018 ENDO FOLLOWUP NOTE LOCATION: Room 656. SUBJECTIVE: This is an 82-year-old female with recent uncontrolled type 2 insulin-requiring diabetes with concomitant end-stage renal disease and dialysis dependence with generalized body weakness and variable oral intake, as per the nursing staff and is also now being followed closely for metabolic management. Her glycemic levels are fluctuating but improved as noted overnight with glucose levels ranging from 201 to 234 and 251 mg/dL. LABORATORY DATA: Her chemistries showed a BUN of 63. Sodium 136, potassium 4.2, chloride 100, CO2 26, glucose 185, and creatinine 4.4. ASSESSMENT AND PLAN: At this time, we will continue the present dosing of her basal and bolus insulin regimen with NovoLog given as 10 units t.i.d. before meals as ordered. We will continue the low dose correction scale using NovoLog insulin as given. We will also continue the basal insulin given as Lantus at 20 units subcutaneous at bedtime daily as given. We will obtain serial chemistries and supplement accordingly as needed. We will follow. Bella Gold MD
--- NOTE | 2018-08-17 22:07 | CP.PCM.DIS ---
Provider - Provider Date of Admission: 08/12/18 11:21 Attending physician: Valdez Mccracken MD Time Spent in preparation of Discharge (in minutes): 24 Diagnosis - Discharge Diagnosis (1) Altered mental status Status: Acute (2) Chronic renal failure Status: Acute (3) Diabetes mellitus Status: Acute Priority: Medium (4) ESRD (end stage renal disease) on dialysis Status: Acute Priority: Medium (5) Elevated troponin I level Status: Acute (6) Uncontrolled diabetes mellitus Status: Acute Priority: Medium Hospital Course - Lab Results Lab Results: Micro Results 08/12/18 09:20 Blood Blood Culture - Final NO GROWTH AFTER 5 DAYS 08/12/18 09:20 Blood Gram Stain - Final TEST NOT PERFORMED 08/12/18 08:45 Blood Blood Culture - Final NO GROWTH AFTER 5 DAYS 08/12/18 08:45 Blood Gram Stain - Final TEST NOT PERFORMED Most Recent Lab Values WBC 5.0 K/uL (4.8-10.8) 08/17/18 07:47 RBC 4.30 Mil/uL (3.80-5.20) 08/17/18 07:47 Hgb 11.9 g/dL (11.0-16.0) 08/17/18 07:47 Hct 36.2 % (34.0-47.0) 08/17/18 07:47 MCV 84.3 fL (81.0-99.0) 08/17/18 07:47 MCH 27.6 pg (27.0-31.0) 08/17/18 07:47 MCHC 32.8 g/dL (33.0-37.0) L 08/17/18 07:47 RDW 15.4 % (11.5-14.5) H 08/17/18 07:47 Plt Count 139 K/uL (130-400) 08/17/18 07:47 MPV 10.6 fL (7.2-11.7) 08/17/18 07:47 Neut % (Auto) 46.3 % (50.0-75.0) L 08/17/18 07:47 Lymph % (Auto) 34.9 % (20.0-40.0) 08/17/18 07:47 [place] % (Auto) 13.8 % (0.0-10.0) H 08/17/18 07:47 Eos % (Auto) 4.2 % (0.0-4.0) H 08/17/18 07:47 Baso % (Auto) 0.8 % (0.0-2.0) 08/17/18 07:47 Neut # (Auto) 2.3 K/uL (1.8-7.0) 08/17/18 07:47 Lymph # (Auto) 1.7 K/uL (1.0-4.3) 08/17/18 07:47 [place] # (Auto) 0.7 K/uL (0.0-0.8) 08/17/18 07:47 Eos # (Auto) 0.2 K/uL (0.0-0.7) 08/17/18 07:47 Baso # (Auto) 0.0 K/uL (0.0-0.2) 08/17/18 07:47 ESR 26 mm/hr (0-20) H 08/14/18 07:37 Puncture Site Lra 08/13/18 17:17 pCO2 37 mm/Hg (35-45) 08/13/18 17:17 pO2 70 mm/Hg (80-100) L 08/13/18 17:17 HCO3 28.5 mmol/L (21-28) H 08/13/18 17:17 ABG pH 7.49 (7.35-7.45) H 08/13/18 17:17 ABG Total CO2 29.3 mmol/L (22-28) H 08/13/18 17:17 ABG O2 Saturation 96.9 % (95-98) 08/13/18 17:17 ABG Base Excess 4.7 mmol/L (-2.0-3.0) H 08/13/18 17:17 Mohinder Test Na 08/13/18 17:17 ABG Potassium 3.3 mmol/L (3.6-5.2) L 08/13/18 17:17 VBG pH 7.38 (7.32-7.43) 08/12/18 08:55 VBG pCO2 36 mmHg (40-60) L 08/12/18 08:55 VBG HCO3 22.2 mmol/L 08/12/18 08:55 VBG Total CO2 22.4 mmol/L (22-28) 08/12/18 08:55 VBG O2 Sat (Calc) 94.6 % (40-65) H 08/12/18 08:55 VBG Base Excess -3.3 mmol/L (0.0-2.0) L 08/12/18 08:55 VBG Potassium 4.7 mmol/L (3.6-5.2) 08/12/18 08:55 A-a O2 Difference 33.0 mm/Hg 08/13/18 17:17 Respiratory Index 0.5 08/13/18 17:17 Sodium 141.0 mmol/l (132-148) 08/13/18 17:17 Chloride 105.0 mmol/L (98-107) 08/13/18 17:17 Glucose 171 mg/dl (65-105) H 08/13/18 17:17 Lactate 2.3 mmol/L (0.7-2.1) H 08/13/18 17:17 Liter Flow 0 08/13/18 17:17 FiO2 21.0 % 08/13/18 17:17 Crit Value Called To Vincent patel 08/12/18 08:55 Crit Value Called By Kash martin 08/12/18 08:55 Crit Value Read Back Y 08/12/18 08:55 Blood Gas Notified Time 902 08/12/18 08:55 Sodium 136 mmol/L (132-148) 08/17/18 07:47 Potassium 4.2 mmol/L (3.6-5.2) 08/17/18 07:47 Chloride 100 mmol/L (98-107) 08/17/18 07:47 Carbon Dioxide 26 mmol/L (22-30) 08/17/18 07:47 Anion Gap 14 (10-20) 08/17/18 07:47 BUN 63 mg/dL (7-17) H 08/17/18 07:47 Creatinine 4.4 mg/dL (0.7-1.2) H 08/17/18 07:47 Est GFR ( Amer) 12 08/17/18 07:47 Est GFR (Non-Af Amer) 10 08/17/18 07:47 POC Glucose (mg/dL) 201 mg/dL (65-110) H 08/16/18 06:08 Random Glucose 185 mg/dL (65-105) H 08/17/18 07:47 Hemoglobin A1c 12.8 % (4.2-6.5) H 08/13/18 07:27 Serum Osmolality 370 mosm/kg (272-300) H 08/12/18 09:44 Calcium 9.2 mg/dl (8.6-10.4) 08/17/18 07:47 Phosphorus 4.6 mg/dL (2.5-4.5) H 08/17/18 07:47 Total Bilirubin 0.4 mg/dL (0.2-1.3) 08/17/18 07:47 AST 24 U/L (14-36) 08/17/18 07:47 ALT 16 U/L (9-52) 08/17/18 07:47 Alkaline Phosphatase 98 U/L (38-126) 08/17/18 07:47 Ammonia < 9 umol/L (9-33) L 08/14/18 07:37 Total Creatine Kinase 175 U/L (30-135) H 08/12/18 09:00 CK-MB (Mass) 2.20 ng/mL (0.0-3.38) 08/12/18 09:00 Troponin I 0.1160 ng/mL (0.00-0.120) 08/14/18 07:37 Total Protein 6.2 g/dL (6.3-8.3) L 08/17/18 07:47 Albumin 3.4 g/dL (3.5-5.0) L 08/17/18 07:47 Globulin 2.8 gm/dL (2.2-3.9) 08/17/18 07:47 Albumin/Globulin Ratio 1.2 (1.0-2.1) 08/17/18 07:47 Vitamin B12 889 pg/mL (239-931) 08/14/18 07:37 Folate 12.9 ng/mL 08/14/18 07:37 Prolactin 115.9 ng/mL (3.0-18.9) H 08/14/18 07:37 Arterial Blood Potassium 3.3 mmol/L (3.6-5.2) L 08/13/18 17:17 Venous Blood Potassium 4.7 mmol/L (3.6-5.2) 08/12/18 08:55 B-Hydroxybutyrate 1.73 mM (0.02-0.27) H 08/12/18 09:00 Serum Immunofixation Not detected (Not Detected) 08/14/18 07:37 Hep Bs Antigen Negative (NEGATIVE) 08/13/18 12:26 Discharge Exam - Head Exam Head Exam: NORMOCEPHALIC - Eye Exam Eye Exam: Normal appearance Pupil Exam: NORMAL ACCOMODATION - ENT Exam ENT Exam: Normal Exam - Neck Exam Neck exam: Normal Inspection - Respiratory Exam Respiratory Exam: Decreased Breath Sounds - Cardiovascular Exam Cardiovascular Exam: REGULAR RHYTHM - GI/Abdominal Exam GI & Abdominal Exam: Normal Bowel Sounds - Rectal Exam Rectal Exam: Deferred - Exam External exam: NORMAL EXTERNAL EXAM - Extremities Exam Extremities exam: tenderness - Back Exam Back exam: NORMAL INSPECTION - Neurological Exam Neurological exam: Altered - Psychiatric Exam Psychiatric exam: Depressed - Skin Skin Exam: Dry Discharge Plan - Discharge Medications Prescriptions: Albuterol 0.083% [Albuterol 0.083% Inhal Luisa (2.5 mg/3 ml) UD] 2.5 mg INH RQ6 30 Days #120 neb hydrALAZINE [Apresoline] 25 mg PO BID #60 tab Donepezil [Aricept] 10 mg PO HS #30 tab Oxybutynin [Ditropan Tab] 5 mg PO DAILY #30 tab Insulin Glargine, Recombina [Lantus] 34 unit SC HS #30 unit Insulin Glargine, Recombina [Lantus] 34 unit SC HS 30 Days unit Atorvastatin [Lipitor] 10 mg PO HS #30 tab Vitamin B Complex/Vit C/Folic [Nephro-Marina] 1 tab PO DAILY #30 tab Insulin Aspart, Recombinant [Novolog] 18 unit SC BIDAC 30 Days unit Famotidine [Pepcid] 20 mg PO DAILY #30 tab Clopidogrel [Plavix] 75 mg PO DAILY #30 tab Sevelamer Carbonate [Renvela] 800 mg PO TIDCC #90 tab Montelukast [Singulair] 10 mg PO DAILY #30 tab Atenolol [Tenormin] 25 mg PO DAILY #30 tab - Follow Up Plan Condition: GOOD Disposition: HOME/ ROUTINE Instructions: Kidney Failure, Hyperglycemia, Adult (DC), End Stage Kidney Disease (DC) Additional Instructions: Please f/u with Dr. Mccracken office in 1 week Please continue HD as scheduled Please continue medication as per med. 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
--- NOTE | 2018-08-19 10:34 | EEG ---
DATE: 08/14/2018 This is a 16-channel electroencephalogram of an awake and drowsy adult. During the study, photic stimulation was performed, hyperventilation was not performed. The resting electroencephalogram consist of 30 to 40 microvolt, diffuse 7 to 9 Hz theta mixed with low alpha activities seen with posterior dominant rhythm. The amplitude was markedly increased in right cortical leads to compare with left side more than 30 microvolt. Some paroxysmal polyspike and wave activities noted followed with few activities seen consistent with echographic seizures. This episode was repeatedly seen briefly following the distal activities. Photic stimulation did not evoke driving response noted at 2 to 20 Hz. IMPRESSION: This is an abnormal electroencephalogram because of paroxysmal activities intermittently seen in the bilateral cortical leads suggestive of epileptiform discharges. Please correlate the findings with neurological and the radiological studies. Nnamdi Choudhary MD
== END 2018-08-17 12:15 | disposition home or self-care (01) | DRG 637 ==
LOC: C.ER 08:34 → C.9E 11:21 → C.6T 13:57
PROVIDERS: ADMIT Internal Medicine; ATTEND Internal Medicine
PROC: 5A1D70Z Performance of Urinary Filtration, Intermittent, Less than 6 Hours Per Day (ICD-10-PCS; principal; 2018-08-13)
DX: E11.00 Type 2 diabetes mellitus with hyperosmolarity without nonketotic hyperglycemic-hyperosmolar coma (NKHHC) (principal); N18.6 End stage renal disease; G93.41 Metabolic encephalopathy; I13.2 Hypertensive heart and chronic kidney disease with heart failure and with stage 5 chronic kidney disease, or end stage renal disease; F03.90 Unspecified dementia, unspecified severity, without behavioral disturbance, psychotic disturbance, mood disturbance, and anxiety; E11.21 Type 2 diabetes mellitus with diabetic nephropathy; E11.51 Type 2 diabetes mellitus with diabetic peripheral angiopathy without gangrene; J44.9 Chronic obstructive pulmonary disease, unspecified; Z86.73 Personal history of transient ischemic attack (TIA), and cerebral infarction without residual deficits; Z99.2 Dependence on renal dialysis; G43.909 Migraine, unspecified, not intractable, without status migrainosus; F41.8 Other specified anxiety disorders; E86.0 Dehydration; I25.10 Atherosclerotic heart disease of native coronary artery without angina pectoris; K21.9 Gastro-esophageal reflux disease without esophagitis; I50.9 Heart failure, unspecified; E87.5 Hyperkalemia

== ENCOUNTER 2018-08-27 14:57 | Inpatient (IN) | payer OTHER ==
[2018-08-27 15:02] VITALS: BMI 30.2
[2018-08-27] MEDS ORDERED: Sodium Chloride 0.9% 500 ML IV ONE (15:19)
[2018-08-27] MEDS ORDERED: (Novolin R) Insulin Human Regular 100 units/ml vial IVP STA (15:20)
--- NOTE | 2018-08-27 15:23 | C.PDOC ---
History Of Present Illness The patient is an 82-year-old female whose past medical history includes Diabetes, Hypertension, COPD, heart disease and ESRD (on dialysis). Patient states she received dialysis yesterday. On days when she does not receive dialysis, she attends adult day care. Patient states she was sent to the ED by adult day care staff for evaluation because she appeared anxious today. Patient reports she experiences chest pain at night and cannot sleep flat on her back. Patient's finger stick blood glucose level in the ED is over 500mg/dL; patient is known to be non-complaint with her medication. She denies fever, chills or leg swelling. Time Seen by Provider: 08/27/18 15:12 Chief Complaint (Nursing): High Blood Sugar History Per: Patient History/Exam Limitations: no limitations Onset/Duration Of Symptoms: Hrs Current Symptoms Are (Timing): Still Present Causative (Exacerbating) Factor(s): Missed Taking Medication Additional History Per: Patient Past Medical History Reviewed: Historical Data, Nursing Documentation, Vital Signs Vital Signs: Last Vital Signs Temp 99.8 F H 08/27/18 15:03 Pulse 97 H 08/27/18 15:03 Resp 20 08/27/18 15:03 BP 189/83 H 08/27/18 15:03 Pulse Ox 97 08/27/18 15:03 - Medical History PMH: Anxiety, Arthritis, Asthma, Bronchitis, Cardia Arrhythmia, CHF, COPD (Emphysema,), Dementia, Depression, Diabetes (type 2), Emphysema, Fractures, HTN, Hypercholesterolemia, Migraine, End Stage Renal Disease, Chronic Kidney Disease, TIA Surgical History: No Surg Hx - [facility] Procedures (08/12/18) ASSISTANCE WITH RESPIRATORY VENTILATION, 24-96 HRS, CPAP (11/01/16) INSERTION OF INFUSION DEV INTO INF VENA CAVA, PERC APPROACH (10/06/15) PERFORMANCE OF URINARY FILTRATION, MULTIPLE (12/24/16) PERFORMANCE OF URINARY FILTRATION, SINGLE (11/01/16) Family History: States: Unknown Family Hx - Social History Hx Tobacco Use: No Hx Alcohol Use: No Hx Substance Use: No - Immunization History Hx Tetanus Toxoid Vaccination: Yes Hx Influenza Vaccination: Yes (06/2015) Hx Pneumococcal Vaccination: Yes (2014) Review Of Systems Constitutional: Positive for: Other (elevated blood glucose ). Negative for: Fever, Chills Cardiovascular: Positive for: Chest Pain Musculoskeletal: Negative for: Other (leg swelling ) Psych: Positive for: Anxiety Physical Exam - Physical Exam Appears: Non-toxic, No Acute Distress, Other (winded) Skin: Normal Color, Warm, Dry Head: Atraumatic, Normacephalic Eye(s): bilateral: Normal Inspection Oral Mucosa: Moist Neck: Supple Chest: Symmetrical, No Deformity, No Tenderness Cardiovascular: Rhythm Regular, No Murmur Respiratory: Normal Breath Sounds, No Rales, No Rhonchi, No Wheezing, Other (ta chypneic ) Gastrointestinal/Abdominal: Soft, No Tenderness, No Guarding, No Rebound Extremity: Normal ROM, Capillary Refill (less than 2 seconds ), No Swelling Neurological/Psych: Oriented x3, Normal Speech, Normal Cognition ED Course And Treatment - Laboratory Results Result Diagrams: 08/27/18 11:25 08/27/18 11:25 Lab Interpretation: Abnormal (Blood sugar 857, Troponin 0.90, BNP 42226,) ECG: Interpreted By Me ECG Rhythm: Sinus Tachycardia (with left axis and LVH) ECG Interpretation: Abnormal O2 Sat by Pulse Oximetry: 97 (on RA) Pulse Ox Interpretation: Normal Progress Note: Bloodwork, CXR, EKG ordered and reviewed. Insulin IVP and IV Fluids given. - Physician Consult Information Time Consulting Physician Contacted: 18:25 Physician Contacted: Valdez Mccracken Outcome Of Conversation: Patient to be admitted for uncontrolled diabetes and CHF Disposition - Disposition Disposition: HOSPITALIZED Disposition Time: 18:26 Condition: FAIR - POA Present On Arrival: Poor Glycemic Control - Clinical Impression Clinical Impression: SOB (shortness of breath), CHF (congestive heart failure), Elevated brain natriuretic peptide (BNP) level, ESRD (end stage renal disease) on dialysis, Uncontrolled diabetes mellitus - Scribe Statement The provider has reviewed the documentation as recorded by the Scribe (Brenda Dillard) Provider Attestation: All medical record entries made by the Scribe were at my direction and personally dictated by me. I have reviewed the chart and agree that the record accurately reflects my personal performance of the history, physical exam, medical decision making, and the department course for this patient. I have also personally directed, reviewed, and agree with the discharge instructions and disposition.
[2018-08-27 15:41] LABS: BASO % 0.3 % (0.0-2.0); EOS % 0.1 % (0.0-4.0); HEMOGLOBIN 10.3 g/dL (11.0-16.0); LYMPH # 0.7 K/uL (1.0-4.3); LYMPH % 11.6 % (20.0-40.0); MEAN CELL VOLUME 85.9 fL (81.0-99.0); MEAN CORPUSCULAR HEMOGLOBIN 26.7 pg (27.0-31.0); MEAN CORPUSCULAR HGB CONC 31.1 g/dL (33.0-37.0); MEAN PLATELET VOLUME 10.3 fL (7.2-11.7); MONO # 0.5 K/uL (0.0-0.8); MONO % 8.5 % (0.0-10.0); NEUT % 79.5 % (50.0-75.0); RBC 3.84 Mil/uL (3.80-5.20); WHITE BLOOD COUNT 6.3 K/uL (4.8-10.8)
[2018-08-27] MEDS ORDERED: (Novolin R) Insulin Human Regular 100 units/ml vial ONE (15:42)
[2018-08-27] MEDS ORDERED: Sodium Chloride 0.9% 1,000 ML ONE (15:43)
--- NOTE | 2018-08-27 15:58 | RAD ---
Date of service: 08/27/2018 HISTORY: SOB COMPARISON: Portable chest 08/12/2018. FINDINGS: LUNGS: No active pulmonary disease. PLEURA: No significant pleural effusion identified, no pneumothorax apparent. CARDIOVASCULAR: No aortic atherosclerotic calcification present. Stable cardiomegaly. No pulmonary vascular congestion. Wall stent is reiterated the region of the medial right subclavian region. OSSEOUS STRUCTURES: No significant abnormalities. VISUALIZED UPPER ABDOMEN: Normal. OTHER FINDINGS: None. IMPRESSION: Stable cardiomegaly. No pulmonary vascular congestion or airspace disease identified bilaterally.
[2018-08-27 16:29] LABS: ALB/GLOB RATIO 1.4 (1.0-2.1); CALCIUM 9.9 mg/dl (8.6-10.4); TROPONIN I 0.903 ng/mL (0.00-0.120)
[2018-08-27] MEDS ORDERED: Sodium Chloride 0.45% 1,000 ML IV ONE (20:58)
[2018-08-27] MEDS: Sodium Chloride 0.45% 1,000 ML IV SCH (21:10)
[2018-08-27 21:42] LABS: BASO # 0.1 K/uL (0.0-0.2); BASO % 0.7 % (0.0-2.0); EOS # 0.1 K/uL (0.0-0.7); EOS % 1.7 % (0.0-4.0); HEMOGLOBIN 10.3 g/dL (11.0-16.0); LYMPH # 1.5 K/uL (1.0-4.3); LYMPH % 18.8 % (20.0-40.0); MEAN PLATELET VOLUME 9.3 fL (7.2-11.7); MONO # 1.1 K/uL (0.0-0.8); MONO % 12.9 % (0.0-10.0); NEUT # 5.4 K/uL (1.8-7.0); NEUT % 65.9 % (50.0-75.0); RBC 3.81 Mil/uL (3.80-5.20); RED CELL DISTRIBUTION WIDTH 15.4 % (11.5-14.5); WHITE BLOOD COUNT 8.2 K/uL (4.8-10.8)
[2018-08-27] MEDS: (Lantus) Insulin Glargine, Recombinant SC SCH (22:27)
--- NOTE | 2018-08-27 22:46 | CP.PCM.HP ---
History of Present Illness - History of Present Illness History of Present Illness: 82 year old female who was at [facility] became anxious and confused. Finger stick blood sugar level was over 500. She was immediately referred to the [facility] ER for evaluation. Patient is on dialysis. Lab studies done in the ER revealed a glucose of 800 and elevated troponin. Admission was advised. Present on Admission - Present on Admission Any Indicators Present on Admission: No History of DVT/PE: No History of Uncontrolled Diabetes: Yes Urinary Catheter: No Decubitus Ulcer Present: No History Surgical Site Infection Following: None Review of Systems - Constitutional Constitutional: Fatigue, Headache - EENT Ears: Dizziness - Cardiovascular Cardiovascular: Dyspnea - Respiratory Respiratory: Dyspnea on Exertion - Gastrointestinal Gastrointestinal: Heartburn - Menstruation Menstruation: Post Menopausal - Musculoskeletal Musculoskeletal: Arthralgias - Neurological Neurological: Dizziness, Numbness - Psychiatric Psychiatric: Depression Past Patient History - Infectious Disease Hx of Infectious Diseases: None - Tetanus Immunizations Tetanus Immunization: Unknown, Up to Date - Past Medical History & Family History Past Medical History?: Yes - Past Social History Smoking Status: Never Smoked Chewing Tobacco Use: No Cigar Use: No Alcohol: None Drugs: Denies Home Situation {Lives}: Alone Domestic Violence: Negative - CARDIAC Hx Cardia Arrhythmia: Yes Hx Congestive Heart Failure: Yes Hx Hypercholesterolemia: Yes Hx Hypertension: Yes - PULMONARY Hx Asthma: Yes Hx Bronchitis: Yes Hx Chronic Obstructive Pulmonary Disease (COPD): Yes (Emphysema,) Hx Emphysema: Yes - NEUROLOGICAL Hx Dementia: Yes Hx Migraine: Yes Hx Transient Ischemic Attacks (TIA): Yes - HEENT Hx HEENT Problems: Yes Hx Blind: Yes (Left eye.) - RENAL Hx Chronic Kidney Disease: Yes - ENDOCRINE/METABOLIC Hx Diabetes Mellitus Type 2: Yes - HEMATOLOGICAL/ONCOLOGICAL Hx Blood Disorders: No - INTEGUMENTARY Hx Dermatological Problems: Yes Hx Cellulitis: Yes Hx Eczema: Yes - MUSCULOSKELETAL/RHEUMATOLOGICAL Hx Arthritis: Yes Hx Fractures: Yes - GASTROINTESTINAL Hx Gastrointestinal Disorders: Yes Hx Gastroesophageal Reflux: Yes Hx Hemorrhoids: Yes - GENITOURINARY/GYNECOLOGICAL Hx Genitourinary Disorders: Yes Hx Urinary Tract Infection: Yes - PSYCHIATRIC Hx Anxiety: Yes Hx Depression: Yes Hx Substance Use: No - SURGICAL HISTORY Hx Surgeries: Yes Hx Arteriovenous Shunt: Yes (right arm) - ANESTHESIA Hx Anesthesia: Yes Hx Anesthesia Reactions: No Hx Malignant Hyperthermia: No Meds Allergies/Adverse Reactions: Allergies Allergy/AdvReac Type Severity Reaction Status Date / Time No Known Allergies Allergy Verified 08/27/18 15:02 Physical Exam - Constitutional Appears: No Acute Distress, Confused - Head Exam Head Exam: NORMAL INSPECTION - Eye Exam Eye Exam: Normal appearance Pupil Exam: NORMAL ACCOMODATION - ENT Exam ENT Exam: Mucous Membranes Dry - Neck Exam Neck exam: Positive for: Normal Inspection - Respiratory Exam Respiratory Exam: Decreased Breath Sounds - Cardiovascular Exam Cardiovascular Exam: REGULAR RHYTHM - GI/Abdominal Exam GI & Abdominal Exam: Normal Bowel Sounds, Soft - Rectal Exam Rectal Exam: Deferred - Exam External exam: NORMAL EXTERNAL EXAM - Extremities Exam Extremities exam: Positive for: tenderness - Back Exam Back exam: NORMAL INSPECTION - Neurological Exam Neurological exam: Reflexes Normal - Psychiatric Exam Psychiatric exam: Depressed - Skin Skin Exam: Dry Results - Vital Signs Recent Vital Signs: Last Vital Signs Temp 99.8 F H 08/27/18 15:03 Pulse 88 08/27/18 21:14 Resp 20 08/27/18 21:14 BP 177/83 H 08/27/18 21:14 Pulse Ox 97 08/27/18 21:14 - Labs Result Diagrams: 08/27/18 21:38 08/27/18 11:25 Labs: Laboratory Results - last 24 hr 08/27/18 08/27/18 08/27/18 11:25 11:25 15:05 WBC 6.3 RBC 3.84 Hgb 10.3 L Hct 33.0 L MCV 85.9 MCH 26.7 L MCHC 31.1 L RDW 16.0 H Plt Count 208 MPV 10.3 Neut % (Auto) 79.5 H Lymph % (Auto) 11.6 L [place] % (Auto) 8.5 Eos % (Auto) 0.1 Baso % (Auto) 0.3 Neut # (Auto) 5.0 Lymph # (Auto) 0.7 L [place] # (Auto) 0.5 Eos # (Auto) 0.0 Baso # (Auto) 0.0 Sodium 132 Potassium 4.3 Chloride 91 L Carbon Dioxide 21 L Anion Gap 24 H BUN 60 H Creatinine 4.0 H Est GFR ( Amer) 13 Est GFR (Non-Af Amer) 11 POC Glucose (mg/dL) > 500 H* Random Glucose 857 H* D Calcium 9.9 Total Bilirubin 0.6 AST 31 ALT 26 Alkaline Phosphatase 147 H D Troponin I 0.9030 H* NT-Pro-B Natriuret Pep 85342 H Total Protein 7.0 Albumin 4.0 Globulin 3.0 Albumin/Globulin Ratio 1.4 08/27/18 08/27/18 08/27/18 21:38 21:38 22:26 WBC 8.2 RBC 3.81 Hgb 10.3 L Hct 31.3 L MCV 82.0 D MCH 27.0 MCHC 33.0 RDW 15.4 H Plt Count 211 MPV 9.3 Neut % (Auto) 65.9 Lymph % (Auto) 18.8 L [place] % (Auto) 12.9 H Eos % (Auto) 1.7 Baso % (Auto) 0.7 Neut # (Auto) 5.4 Lymph # (Auto) 1.5 [place] # (Auto) 1.1 H Eos # (Auto) 0.1 Baso # (Auto) 0.1 Sodium Potassium Chloride Carbon Dioxide Anion Gap BUN Creatinine Est GFR ( Amer) Est GFR (Non-Af Amer) POC Glucose (mg/dL) 142 H Random Glucose Calcium Total Bilirubin AST ALT 33 Alkaline Phosphatase Troponin I NT-Pro-B Natriuret Pep Total Protein Albumin Globulin Albumin/Globulin Ratio Assessment & Plan (1) CHF (congestive heart failure) Status: Acute Priority: High (2) ESRD (end stage renal disease) on dialysis Status: Acute Priority: Medium (3) Elevated brain natriuretic peptide (BNP) level Status: Acute (4) Uncontrolled diabetes mellitus Status: Acute Priority: Medium (5) Acute on chronic diastolic heart failure Status: Acute
[2018-08-28] MEDS: Albuterol 0.083% Inhal Sol (2.5 mg/3 mL) UD INH SCH ×3 (02:00→19:34)
[2018-08-28] MEDS: (Novolog) Insulin Aspart, Recombinant 100 u/ml 10 ml vial SC SCH ×2 (08:22→17:18)
--- NOTE | 2018-08-28 09:32 | CP.PCM.CON ---
History of Present Illness - History of Present Illness History of Present Illness: History Of Present Illness The patient is an 82-year-old female whose past medical history includes Diabetes type 2, Hypertension, COPD, recurrent CHF, dementia and ESRD (on dialysis). Patient states she received dialysis 08/27. On days when she does not receive dialysis, she attends adult day care. Patient states she was sent to the ED by adult day care staff for evaluation because she appeared anxious today. Patient reports she experiences chest pain at night and cannot sleep flat on her back. Patient's finger stick blood glucose level in the ED is over 500mg/dL; patient is known to be non-complaint with her medication. She denies fever, chills or leg swelling. TNI elevated Chief Complaint (Nursing): High Blood Sugar History Per: Patient History/Exam Limitations: no limitations Current Symptoms Are (Timing): Still Present Causative (Exacerbating) Factor(s): Missed Taking Medication Additional History Per: Patient Past Medical History Reviewed: Historical Data, Nursing Documentation, Vital Signs Vital Signs: Last Vital Signs Temp 99.8 F H 08/27/18 15:03 Pulse 97 H 08/27/18 15:03 Resp 20 08/27/18 15:03 BP 189/83 H 08/27/18 15:03 Pulse Ox 97 08/27/18 15:03 - Medical History PMH: Anxiety, Arthritis, Asthma, Bronchitis, Cardia Arrhythmia, CHF, COPD (Emphysema,), Dementia, Depression, Diabetes (type 2), Emphysema, Fractures, HTN, Hypercholesterolemia, Migraine, End Stage Renal Disease, Chronic Kidney Disease, TIA Surgical History: R UE AV fistula Review of Systems - Constitutional Constitutional: Fatigue, Weakness - EENT Eyes: Blurred Vision Ears: absent: As Per HPI, Decreased Hearing, Ear Discharge, Ear Pain, Tinnitus, Abnormal Hearing, Disequilibrium, Dizziness, Other Nose/Mouth/Throat: absent: As Per HPI, Epistaxis, Nasal Congestion, Nasal Discharge, Nasal Obstruction, Nasal Trauma, Nose Pain, Post Nasal Drip, Sinus Pain, Sinus Pressure, Bleeding Gums, Change in Voice, Dental Pain, Dry Mouth, Dysphagia, Halitosis, Hoarsness, Lip Swelling, Mouth Lesions, Mouth Pain, Odynophagia, Sore Throat, Throat Swelling, Tongue Swelling, Facial Pain, Neck Pain, Neck Mass, Other - Cardiovascular Cardiovascular: Dyspnea on Exertion - Gastrointestinal Gastrointestinal: absent: As Per HPI, Abdominal Pain, Belching, Bloating, Change in Bowel Habits, Change in Stool Character, Coffee Ground Emesis, Constipation, Cramping, Diarrhea, Dyspepsia, Dysphagia, Early Satiety, Excessive Flatus, Fecal Incontinence, Heartburn, Hematemesis, Hematochezia, Loose Stools, Melena, Nausea, Odynophagia, Temesmus, Vomiting, Other - Genitourinary Genitourinary: As Per HPI - Musculoskeletal Musculoskeletal: Muscle Weakness, Myalgias - Neurological Neurological: Confusion, Weakness Past Patient History - Infectious Disease Hx of Infectious Diseases: None - Tetanus Immunizations Tetanus Immunization: Unknown, Up to Date - Past Medical History & Family History Past Medical History?: Yes Past Family History: Reviewed and not pertinent - Past Social History Smoking Status: Never Smoked Chewing Tobacco Use: No Cigar Use: No Alcohol: None Drugs: Denies Home Situation {Lives}: Alone Domestic Violence: Negative - CARDIAC Hx Cardia Arrhythmia: Yes Hx Congestive Heart Failure: Yes Hx Hypercholesterolemia: Yes Hx Hypertension: Yes - PULMONARY Hx Asthma: Yes Hx Bronchitis: Yes Hx Chronic Obstructive Pulmonary Disease (COPD): Yes (Emphysema,) Hx Emphysema: Yes - NEUROLOGICAL Hx Dementia: Yes Hx Migraine: Yes Hx Transient Ischemic Attacks (TIA): Yes - HEENT Hx HEENT Problems: Yes Hx Blind: Yes (Left eye.) - RENAL Hx Chronic Kidney Disease: Yes - ENDOCRINE/METABOLIC Hx Diabetes Mellitus Type 2: Yes - HEMATOLOGICAL/ONCOLOGICAL Hx Blood Disorders: No - INTEGUMENTARY Hx Dermatological Problems: Yes Hx Cellulitis: Yes Hx Eczema: Yes - MUSCULOSKELETAL/RHEUMATOLOGICAL Hx Arthritis: Yes Hx Fractures: Yes - GASTROINTESTINAL Hx Gastrointestinal Disorders: Yes Hx Gastroesophageal Reflux: Yes Hx Hemorrhoids: Yes - GENITOURINARY/GYNECOLOGICAL Hx Genitourinary Disorders: Yes Hx Urinary Tract Infection: Yes - PSYCHIATRIC Hx Anxiety: Yes Hx Depression: Yes Hx Substance Use: No - SURGICAL HISTORY Hx Surgeries: Yes Hx Arteriovenous Shunt: Yes (right arm) - ANESTHESIA Hx Anesthesia: Yes Hx Anesthesia Reactions: No Hx Malignant Hyperthermia: No Meds Allergies/Adverse Reactions: Allergies Allergy/AdvReac Type Severity Reaction Status Date / Time No Known Allergies Allergy Verified 08/27/18 15:02 - Medications Medications: Current Medications Albuterol Sulfate (Albuterol 0.083% Inhal Luisa (2.5 Mg/3 Ml) Ud) 2.5 mg INH RQ6 [facility] Last Admin: 08/28/18 02:00 Dose: Not Given Aspirin (Aspirin Chewable) 81 mg PO DAILY [facility] Clopidogrel Bisulfate (Plavix) 75 mg PO DAILY [facility] Hydralazine HCl (Apresoline) 25 mg PO BID [facility] Sodium Chloride (Sodium Chloride 0.45%) 1,000 mls @ 60 mls/hr IV .[id number] [facility] Stop: 08/29/18 20:31 Last Admin: 08/27/18 21:10 Dose: 60 mls/hr Insulin Aspart (Novolog) 18 unit SC BIDAC [facility] Last Admin: 08/28/18 08:22 Dose: 18 u Insulin Glargine (Lantus) 34 unit SC HS [facility] Last Admin: 08/27/18 22:27 Dose: 34 units Montelukast Sodium (Singulair) 10 mg PO DAILY [facility] Rosuvastatin Calcium (Crestor) 5 mg PO HS [facility] Last Admin: 08/27/18 22:27 Dose: 5 mg Sevelamer Carbonate (Renvela) 800 mg PO TIDCC [facility] Last Admin: 08/28/18 08:30 Dose: 800 mg Vitamin B Complex/Vit C/Folic Acid (Nephro-Marina) 1 tab PO DAILY [facility] Physical Exam - Constitutional Appears: Non-toxic, No Acute Distress - Head Exam Head Exam: ATRAUMATIC, NORMAL INSPECTION - Eye Exam Eye Exam: EOMI, Normal appearance - Neck Exam Neck exam: Positive for: Normal Inspection. Negative for: Tenderness - Respiratory Exam Respiratory Exam: Clear to Auscultation Bilateral, NORMAL BREATHING PATTERN - Cardiovascular Exam Cardiovascular Exam: REGULAR RHYTHM, +S1 - GI/Abdominal Exam GI & Abdominal Exam: Soft. absent: Tenderness - Extremities Exam Extremities exam: Positive for: normal inspection. Negative for: tenderness - Neurological Exam Neurological exam: Altered, CN II-XII Intact - Skin Skin Exam: Dry, Warm Results - Vital Signs Recent Vital Signs: Last Vital Signs Temp 97.8 F 08/28/18 08:13 Pulse 87 08/28/18 08:13 Resp 18 08/28/18 08:13 BP 198/96 H 08/28/18 08:13 Pulse Ox 98 08/28/18 08:13 - Labs Result Diagrams: 08/27/18 21:38 08/28/18 06:42 Labs: Laboratory Results - last 24 hr 08/27/18 08/27/18 08/27/18 11:25 11:25 15:05 WBC 6.3 RBC 3.84 Hgb 10.3 L Hct 33.0 L MCV 85.9 MCH 26.7 L MCHC 31.1 L RDW 16.0 H Plt Count 208 MPV 10.3 Neut % (Auto) 79.5 H Lymph % (Auto) 11.6 L Craven % (Auto) 8.5 Eos % (Auto) 0.1 Baso % (Auto) 0.3 Neut # (Auto) 5.0 Lymph # (Auto) 0.7 L Craven # (Auto) 0.5 Eos # (Auto) 0.0 Baso # (Auto) 0.0 Sodium 132 Potassium 4.3 Chloride 91 L Carbon Dioxide 21 L Anion Gap 24 H BUN 60 H Creatinine 4.0 H Est GFR ( Amer) 13 Est GFR (Non-Af Amer) 11 POC Glucose (mg/dL) > 500 H* Random Glucose 857 H* D Calcium 9.9 Total Bilirubin 0.6 AST 31 ALT 26 Alkaline Phosphatase 147 H D Troponin I 0.9030 H* NT-Pro-B Natriuret Pep 03062 H Total Protein 7.0 Albumin 4.0 Globulin 3.0 Albumin/Globulin Ratio 1.4 08/27/18 08/27/18 08/27/18 20:57 21:38 21:38 WBC 8.2 RBC 3.81 Hgb 10.3 L Hct 31.3 L MCV 82.0 D MCH 27.0 MCHC 33.0 RDW 15.4 H Plt Count 211 MPV 9.3 Neut % (Auto) 65.9 Lymph % (Auto) 18.8 L Craven % (Auto) 12.9 H Eos % (Auto) 1.7 Baso % (Auto) 0.7 Neut # (Auto) 5.4 Lymph # (Auto) 1.5 Craven # (Auto) 1.1 H Eos # (Auto) 0.1 Baso # (Auto) 0.1 Sodium Potassium Chloride Carbon Dioxide Anion Gap BUN Creatinine Est GFR ( Amer) Est GFR (Non-Af Amer) POC Glucose (mg/dL) 118 H Random Glucose Calcium Total Bilirubin AST ALT 33 Alkaline Phosphatase Troponin I NT-Pro-B Natriuret Pep Total Protein Albumin Globulin Albumin/Globulin Ratio 1108/27/18 08/28/18 22:21 22:26 06:42 WBC RBC Hgb Hct MCV MCH MCHC RDW Plt Count MPV Neut % (Auto) Lymph % (Auto) Craven % (Auto) Eos % (Auto) Baso % (Auto) Neut # (Auto) Lymph # (Auto) Craven # (Auto) Eos # (Auto) Baso # (Auto) Sodium 140 Potassium 3.7 Chloride 103 Carbon Dioxide 25 Anion Gap BUN 56 H Creatinine Est GFR ( Amer) Est GFR (Non-Af Amer) POC Glucose (mg/dL) 142 H Random Glucose Calcium Total Bilirubin AST ALT Alkaline Phosphatase Troponin I 0.9760 H* NT-Pro-B Natriuret Pep Total Protein Albumin Globulin Albumin/Globulin Ratio 08/28/18 08/28/18 08/28/18 06:54 06:55 07:33 WBC RBC Hgb Hct MCV MCH MCHC RDW Plt Count MPV Neut % (Auto) Lymph % (Auto) Craven % (Auto) Eos % (Auto) Baso % (Auto) Neut # (Auto) Lymph # (Auto) Craven # (Auto) Eos # (Auto) Baso # (Auto) Sodium Potassium Chloride Carbon Dioxide Anion Gap BUN Creatinine Est GFR ( Amer) Est GFR (Non-Af Amer) POC Glucose (mg/dL) 38 L* 42 L 132 H Random Glucose Calcium Total Bilirubin AST ALT Alkaline Phosphatase Troponin I NT-Pro-B Natriuret Pep Total Protein Albumin Globulin Albumin/Globulin Ratio Assessment & Plan (1) Type 2 diabetes mellitus with diabetic nephropathy Status: Acute (2) Hyperglycemia Status: Acute (3) Dementia Status: Acute (4) Elevated troponin Status: Acute (5) ESRD (end stage renal disease) on dialysis Status: Acute Priority: Medium - Assessment and Plan (Free Text) Plan: BSs normalized with IV fluids, insulin Will schedule dialysis MWF Elevated TNI- will repeat, plans as per medicine
[2018-08-28] MEDS: Multivitamin Vitamin B Complex (Nephro-Vite) Tab PO SCH (10:24)
[2018-08-28] MEDS: Sodium Chloride 0.45% 1,000 ML IV SCH (13:48)
[2018-08-28 15:46] LABS: CK-MB 2.05 ng/mL (0.0-3.38); TROPONIN I 0.408 ng/mL (0.00-0.120)
[2018-08-28] MEDS: Enoxaparin 30 mg Syringe SC SCH (17:18)
--- NOTE | 2018-08-28 17:18 | CP.PCM.PN ---
Subjective - Date & Time of Evaluation Date of Evaluation: 08/28/18 Time of Evaluation: 17:12 - Subjective Subjective: 82 years old female was sent to the ED from her adult day care center because she was found abnormally nervous. Known to have a HPTN, a COPD, a IDDM, a hypercholesterolemia, an ESRD on HD, she had her HD on 08/27/2018. In the ED, her blood glucose was over 500. She was given IVF and insulin with normalization of her glucose. Her serum TNI's were slightly elevated. She denies any chest pain, any shortness of breath. A recent echocardiogram revealed an LVH with normal systolic wall motion and a grade I diastolic dysfunction, with mild MR, TR. ECG: RSR, LVH with qs in V1, V2, unchanged from the ECG on 10/2017. Objective - Vital Signs/Intake and Output Vital Signs (last 24 hours): Temp Pulse Resp BP Pulse Ox 98.7 F 85 20 162/70 H 99 08/28/18 15:00 08/28/18 15:00 08/28/18 15:00 08/28/18 15:00 08/28/18 15:00 - Medications Medications: Current Medications Albuterol Sulfate (Albuterol 0.083% Inhal Luisa (2.5 Mg/3 Ml) Ud) 2.5 mg INH RQ6 [facility] Last Admin: 08/28/18 08:00 Dose: Not Given Aspirin (Aspirin Chewable) 81 mg PO DAILY [facility] Last Admin: 08/28/18 10:24 Dose: 81 mg Clopidogrel Bisulfate (Plavix) 75 mg PO DAILY [facility] Last Admin: 08/28/18 10:24 Dose: 75 mg Enoxaparin Sodium (Lovenox) 30 mg SC DAILY [facility] Hydralazine HCl (Apresoline) 25 mg PO BID [facility] Last Admin: 08/28/18 10:25 Dose: 25 mg Sodium Chloride (Sodium Chloride 0.45%) 1,000 mls @ 60 mls/hr IV .[id number] [facility] Stop: 08/29/18 20:31 Last Admin: 08/28/18 13:48 Dose: 60 mls/hr Insulin Aspart (Novolog) 18 unit SC BIDAC [facility] Last Admin: 08/28/18 08:22 Dose: 18 u Insulin Glargine (Lantus) 34 unit SC HS [facility] Last Admin: 08/27/18 22:27 Dose: 34 units Montelukast Sodium (Singulair) 10 mg PO DAILY [facility] Last Admin: 08/28/18 10:24 Dose: 10 mg Rosuvastatin Calcium (Crestor) 5 mg PO HS [facility] Last Admin: 08/27/18 22:27 Dose: 5 mg Sevelamer Carbonate (Renvela) 800 mg PO TIDCC [facility] Last Admin: 08/28/18 12:03 Dose: 800 mg Vitamin B Complex/Vit C/Folic Acid (Nephro-Marina) 1 tab PO DAILY [facility] Last Admin: 08/28/18 10:24 Dose: 1 tab - Labs Labs: 08/27/18 21:38 08/28/18 06:42 - Constitutional Appears: Well, Chronically Ill - Head Exam Head Exam: NORMAL INSPECTION - Eye Exam Eye Exam: Normal appearance - ENT Exam ENT Exam: Normal Exam - Neck Exam Neck Exam: Normal Inspection - Respiratory Exam Respiratory Exam: Clear to Ausculation Bilateral, NORMAL BREATHING PATTERN - Cardiovascular Exam Cardiovascular Exam: REGULAR RHYTHM, Murmur - GI/Abdominal Exam GI & Abdominal Exam: Soft, Normal Bowel Sounds - Rectal Exam Rectal Exam: Deferred - Extremities Exam Extremities Exam: Normal Inspection - Back Exam Back Exam: NORMAL INSPECTION - Neurological Exam Neurological Exam: Alert, Awake, Oriented x3 - Psychiatric Exam Psychiatric exam: Anxious - Skin Skin Exam: Dry, Intact, Normal Color, Warm Assessment and Plan (1) Hyperglycemia Assessment & Plan: Controlled now. Status: Acute (2) Elevated troponin Assessment & Plan: probably from ESRD. No evidence of acute ECG change. Status: Acute
[2018-08-28] MEDS: (Lantus) Insulin Glargine, Recombinant SC SCH (22:01)
[2018-08-29] MEDS: Albuterol 0.083% Inhal Sol (2.5 mg/3 mL) UD INH SCH ×4 (01:41→19:51)
[2018-08-29] MEDS: Sodium Chloride 0.45% 1,000 ML IV SCH (05:41)
[2018-08-29 07:24] LABS: BASO % 0.7 % (0.0-2.0); EOS # 0.3 K/uL (0.0-0.7); EOS % 3.9 % (0.0-4.0); HEMOGLOBIN 10.3 g/dL (11.0-16.0); LYMPH # 1.6 K/uL (1.0-4.3); LYMPH % 23.5 % (20.0-40.0); MEAN CELL VOLUME 82.4 fL (81.0-99.0); MEAN CORPUSCULAR HGB CONC 32.8 g/dL (33.0-37.0); MEAN PLATELET VOLUME 9.9 fL (7.2-11.7); MONO # 0.9 K/uL (0.0-0.8); MONO % 12.9 % (0.0-10.0); NEUT # 4.1 K/uL (1.8-7.0); RBC 3.8 Mil/uL (3.80-5.20); RED CELL DISTRIBUTION WIDTH 15.8 % (11.5-14.5)
[2018-08-29 08:11] LABS: TROPONIN I 0.314 ng/mL (0.00-0.120)
[2018-08-29] MEDS: (Novolog) Insulin Aspart, Recombinant 100 u/ml 10 ml vial SC SCH (08:28)
[2018-08-29] MEDS: Multivitamin Vitamin B Complex (Nephro-Vite) Tab PO SCH (09:33)
[2018-08-29] MEDS: Enoxaparin 30 mg Syringe SC SCH (09:33)
--- NOTE | 2018-08-29 10:21 | CP.PCM.PN ---
Subjective - Date & Time of Evaluation Date of Evaluation: 08/29/18 Time of Evaluation: 10:18 - Subjective Subjective: Seen at dialysis BSs improved HTN elevated Alert, no new complaint TNIs improved- likely no WI as per cardio Objective - Vital Signs/Intake and Output Vital Signs (last 24 hours): Temp Pulse Resp BP Pulse Ox 98.4 F 82 18 190/94 H 100 08/29/18 08:01 08/29/18 08:01 08/29/18 08:01 08/29/18 08:01 08/29/18 08:01 - Medications Medications: Current Medications Albuterol Sulfate (Albuterol 0.083% Inhal Luisa (2.5 Mg/3 Ml) Ud) 2.5 mg INH RQ6 [facility] Last Admin: 08/29/18 07:35 Dose: 2.5 mg Aspirin (Aspirin Chewable) 81 mg PO DAILY [facility] Last Admin: 08/29/18 09:33 Dose: 81 mg Clopidogrel Bisulfate (Plavix) 75 mg PO DAILY [facility] Last Admin: 08/29/18 09:34 Dose: 75 mg Enoxaparin Sodium (Lovenox) 30 mg SC DAILY [facility] Last Admin: 08/29/18 09:33 Dose: 30 mg Hydralazine HCl (Apresoline) 25 mg PO BID [facility] Last Admin: 08/29/18 09:44 Dose: Not Given Sodium Chloride (Sodium Chloride 0.45%) 1,000 mls @ 60 mls/hr IV .[id number] [facility] Stop: 08/29/18 20:31 Last Admin: 08/29/18 05:41 Dose: 60 mls/hr Insulin Glargine (Lantus) 34 unit SC [facility] Last Admin: 08/28/18 22:01 Dose: 34 units Insulin Human Regular (Novolin R) 0 unit SC [facility]; Protocol Montelukast Sodium (Singulair) 10 mg PO DAILY [facility] Last Admin: 08/29/18 09:34 Dose: 10 mg Rosuvastatin Calcium (Crestor) 5 mg PO [facility] Last Admin: 08/28/18 22:00 Dose: 5 mg Sevelamer Carbonate (Renvela) 800 mg PO TIDCC [facility] Last Admin: 08/29/18 08:37 Dose: 800 mg Vitamin B Complex/Vit C/Folic Acid (Nephro-Marina) 1 tab PO DAILY [facility] Last Admin: 08/29/18 09:33 Dose: 1 tab - Labs Labs: 08/29/18 07:15 08/29/18 07:15 - Constitutional Appears: No Acute Distress, Chronically Ill - Head Exam Head Exam: ATRAUMATIC, NORMAL INSPECTION - Eye Exam Eye Exam: EOMI, Normal appearance - Neck Exam Neck Exam: Normal Inspection. absent: Tenderness - Respiratory Exam Respiratory Exam: Clear to Ausculation Bilateral, NORMAL BREATHING PATTERN - Cardiovascular Exam Cardiovascular Exam: REGULAR RHYTHM, +S1 - GI/Abdominal Exam GI & Abdominal Exam: Soft. absent: Tenderness - Extremities Exam Extremities Exam: Normal Inspection. absent: Tenderness - Neurological Exam Neurological Exam: Awake, CN II-XII Intact - Skin Skin Exam: Dry, Warm Assessment and Plan (1) Type 2 diabetes mellitus with diabetic nephropathy Status: Acute (2) Hyperglycemia Status: Acute (3) Dementia Status: Acute (4) Elevated troponin Status: Acute (5) ESRD (end stage renal disease) on dialysis Status: Acute - Assessment and Plan (Free Text) Plan: Dialysis now UF 2000ml Start another BP med Stop IV fluids
[2018-08-29] MEDS: (Novolin R) Insulin Human Regular 100 units/ml vial SC SCH ×2 (13:30→17:15)
--- NOTE | 2018-08-29 18:34 | CP.PCM.PN ---
Subjective - Date & Time of Evaluation Date of Evaluation: 08/29/18 Time of Evaluation: 15:25 - Subjective Subjective: patient is more alert and responsive. blood glucose under much better control. troponin levels still elevated. Patient had dialysis this a.m. patient claims she never misses insulin injections. Will reevaluate patient's status in a.m. Objective - Vital Signs/Intake and Output Vital Signs (last 24 hours): Temp Pulse Resp BP Pulse Ox 97.2 F L 82 20 174/82 H 96 08/29/18 15:00 08/29/18 18:00 08/29/18 15:00 08/29/18 15:00 08/29/18 15:00 - Medications Medications: Current Medications Albuterol Sulfate (Albuterol 0.083% Inhal Luisa (2.5 Mg/3 Ml) Ud) 2.5 mg INH RQ6 [facility] Last Admin: 08/29/18 13:32 Dose: Not Given Aspirin (Aspirin Chewable) 81 mg PO DAILY [facility] Last Admin: 08/29/18 09:33 Dose: 81 mg Carvedilol (Coreg) 3.125 mg PO BID [facility] Last Admin: 08/29/18 17:15 Dose: 3.125 mg Clopidogrel Bisulfate (Plavix) 75 mg PO DAILY [facility] Last Admin: 08/29/18 09:34 Dose: 75 mg Enoxaparin Sodium (Lovenox) 30 mg SC DAILY [facility] Last Admin: 08/29/18 09:33 Dose: 30 mg Hydralazine HCl (Apresoline) 25 mg PO BID [facility] Last Admin: 08/29/18 17:15 Dose: 25 mg Insulin Glargine (Lantus) 34 unit SC [facility] Last Admin: 08/28/18 22:01 Dose: 34 units Insulin Human Regular (Novolin R) 0 unit SC [facility]; Protocol Last Admin: 08/29/18 17:15 Dose: 3 units Montelukast Sodium (Singulair) 10 mg PO DAILY [facility] Last Admin: 08/29/18 09:34 Dose: 10 mg Rosuvastatin Calcium (Crestor) 5 mg PO HS [facility] Last Admin: 08/28/18 22:00 Dose: 5 mg Sevelamer Carbonate (Renvela) 800 mg PO TIDCC [facility] Last Admin: 08/29/18 17:15 Dose: 800 mg Vitamin B Complex/Vit C/Folic Acid (Nephro-Marina) 1 tab PO DAILY [facility] Last Admin: 08/29/18 09:33 Dose: 1 tab - Labs Labs: 08/29/18 07:15 08/29/18 07:15 - Constitutional Appears: No Acute Distress - Head Exam Head Exam: NORMAL INSPECTION - Eye Exam Eye Exam: Normal appearance Pupil Exam: NORMAL ACCOMODATION - ENT Exam ENT Exam: Normal Exam - Neck Exam Neck Exam: Normal Inspection - Respiratory Exam Respiratory Exam: Decreased Breath Sounds - Cardiovascular Exam Cardiovascular Exam: REGULAR RHYTHM - GI/Abdominal Exam GI & Abdominal Exam: Normal Bowel Sounds - Rectal Exam Rectal Exam: Deferred - Exam External exam: NORMAL EXTERNAL EXAM - Extremities Exam Extremities Exam: Tenderness - Back Exam Back Exam: NORMAL INSPECTION - Neurological Exam Neurological Exam: Oriented x3 - Psychiatric Exam Psychiatric exam: Depressed - Skin Skin Exam: Dry Assessment and Plan (1) CHF (congestive heart failure) Status: Acute (2) ESRD (end stage renal disease) on dialysis Status: Acute (3) Elevated brain natriuretic peptide (BNP) level Status: Acute (4) Uncontrolled diabetes mellitus Status: Acute (5) Acute on chronic diastolic heart failure Status: Acute
--- NOTE | 2018-08-29 19:22 | CP.PCM.PN ---
Subjective - Date & Time of Evaluation Date of Evaluation: 08/29/18 Time of Evaluation: 19:20 - Subjective Subjective: Patient has no complaint. Alert, oriented, in no distress. Objective - Vital Signs/Intake and Output Vital Signs (last 24 hours): Temp Pulse Resp BP Pulse Ox 97.2 F L 82 20 174/82 H 96 08/29/18 15:00 08/29/18 18:00 08/29/18 15:00 08/29/18 15:00 08/29/18 15:00 - Medications Medications: Current Medications Albuterol Sulfate (Albuterol 0.083% Inhal Luisa (2.5 Mg/3 Ml) Ud) 2.5 mg INH RQ6 [facility] Last Admin: 08/29/18 13:32 Dose: Not Given Aspirin (Aspirin Chewable) 81 mg PO DAILY [facility] Last Admin: 08/29/18 09:33 Dose: 81 mg Carvedilol (Coreg) 3.125 mg PO BID [facility] Last Admin: 08/29/18 17:15 Dose: 3.125 mg Clopidogrel Bisulfate (Plavix) 75 mg PO DAILY [facility] Last Admin: 08/29/18 09:34 Dose: 75 mg Enoxaparin Sodium (Lovenox) 30 mg SC DAILY [facility] Last Admin: 08/29/18 09:33 Dose: 30 mg Hydralazine HCl (Apresoline) 25 mg PO BID [facility] Last Admin: 08/29/18 17:15 Dose: 25 mg Insulin Glargine (Lantus) 34 unit SC [facility] Last Admin: 08/28/18 22:01 Dose: 34 units Insulin Human Regular (Novolin R) 0 unit SC [facility]; Protocol Last Admin: 08/29/18 17:15 Dose: 3 units Montelukast Sodium (Singulair) 10 mg PO DAILY [facility] Last Admin: 08/29/18 09:34 Dose: 10 mg Rosuvastatin Calcium (Crestor) 5 mg PO HS [facility] Last Admin: 08/28/18 22:00 Dose: 5 mg Sevelamer Carbonate (Renvela) 800 mg PO TIDCC [facility] Last Admin: 08/29/18 17:15 Dose: 800 mg Vitamin B Complex/Vit C/Folic Acid (Nephro-Marina) 1 tab PO DAILY [facility] Last Admin: 08/29/18 09:33 Dose: 1 tab - Labs Labs: 08/29/18 07:15 08/29/18 07:15 - Constitutional Appears: Well, No Acute Distress - Head Exam Head Exam: NORMAL INSPECTION - Eye Exam Eye Exam: Normal appearance - ENT Exam ENT Exam: Normal Exam - Neck Exam Neck Exam: Normal Inspection - Respiratory Exam Respiratory Exam: Clear to Ausculation Bilateral, NORMAL BREATHING PATTERN - Cardiovascular Exam Cardiovascular Exam: REGULAR RHYTHM - GI/Abdominal Exam GI & Abdominal Exam: Soft, Normal Bowel Sounds - Rectal Exam Rectal Exam: Deferred - Extremities Exam Extremities Exam: Normal Inspection - Back Exam Back Exam: NORMAL INSPECTION - Neurological Exam Neurological Exam: Alert, Awake, Oriented x3 - Psychiatric Exam Psychiatric exam: Anxious - Skin Skin Exam: Dry, Intact, Normal Color Assessment and Plan (1) Hyperglycemia Assessment & Plan: Much improved now. Status: Acute (2) Elevated troponin Assessment & Plan: Secondary to ESRD. Status: Acute
[2018-08-29] MEDS: (Lantus) Insulin Glargine, Recombinant SC SCH (21:49)
[2018-08-30] MEDS: (Novolin R) Insulin Human Regular 100 units/ml vial SC SCH ×3 (00:09→12:52)
[2018-08-30] MEDS: Albuterol 0.083% Inhal Sol (2.5 mg/3 mL) UD INH SCH ×3 (01:10→13:29)
[2018-08-30 08:32] VITALS: BP 169/68; RESP 18; TEMP 98.2; O2SAT 99
[2018-08-30] MEDS: Enoxaparin 30 mg Syringe SC SCH (09:00)
[2018-08-30] MEDS: Multivitamin Vitamin B Complex (Nephro-Vite) Tab PO SCH (09:01)
--- NOTE | 2018-08-30 11:07 | CP.PCM.PN ---
Subjective - Date & Time of Evaluation Date of Evaluation: 08/30/18 Time of Evaluation: 11:05 - Subjective Subjective: no acute complaints appears comfortable sugars better tolerated HD unable to obtain ROS due to dementia history Objective - Vital Signs/Intake and Output Vital Signs (last 24 hours): Temp Pulse Resp BP Pulse Ox 98.2 F 64 18 169/68 H 99 08/30/18 07:55 08/30/18 07:55 08/30/18 07:55 08/30/18 07:55 08/30/18 07:55 - Medications Medications: Current Medications Albuterol Sulfate (Albuterol 0.083% Inhal Luisa (2.5 Mg/3 Ml) Ud) 2.5 mg INH RQ6 [facility]ES [facility] Last Admin: 08/30/18 08:04 Dose: 2.5 mg Aspirin (Aspirin Chewable) 81 mg PO DAILY COUNT [facility]CLUDES [facility] Last Admin: 08/30/18 09:01 Dose: 81 mg Carvedilol (Coreg) 3.125 mg PO BID COUNT INCLUDES [facility] Last Admin: 08/30/18 09:01 Dose: 3.125 mg Clopidogrel Bisulfate (Plavix) 75 mg PO DAILY [facility]CLUD[facility] Last Admin: 08/30/18 09:01 Dose: 75 mg Enoxaparin Sodium (Lovenox) 30 mg SC DAILY [facility]CLUD[facility] Last Admin: 08/30/18 09:00 Dose: 30 mg Hydralazine HCl (Apresoline) 25 mg PO BID [facility]CLUD[facility] Last Admin: 08/30/18 09:01 Dose: 25 mg Insulin Glargine (Lantus) 34 unit SC [facility] Last Admin: 08/29/18 21:49 Dose: 34 units Insulin Human Regular (Novolin R) 0 unit SC [facility]; Protocol Last Admin: 08/30/18 08:55 Dose: 3 units Montelukast Sodium (Singulair) 10 mg PO DAILY [facility] Last Admin: 08/30/18 09:01 Dose: 10 mg Rosuvastatin Calcium (Crestor) 5 mg PO HS COUNT INCLUDES [facility] Last Admin: 08/29/18 21:49 Dose: 5 mg Sevelamer Carbonate (Renvela) 800 mg PO TIDCC COUNT INCLUDES [facility] Last Admin: 08/30/18 08:55 Dose: 800 mg Vitamin B Complex/Vit C/Folic Acid (Nephro-Marina) 1 tab PO DAILY COUNT [facility]CLUDES [facility] Last Admin: 08/30/18 09:01 Dose: 1 tab - Labs Labs: 11/23/18 07:15 08/29/18 07:15 - Constitutional Appears: Non-toxic, Confused - Head Exam Head Exam: ATRAUMATIC, NORMAL INSPECTION - Eye Exam Eye Exam: EOMI - ENT Exam ENT Exam: Mucous Membranes Moist - Neck Exam Neck Exam: Full ROM. absent: Lymphadenopathy - Respiratory Exam Respiratory Exam: absent: Accessory Muscle Use - Cardiovascular Exam Cardiovascular Exam: REGULAR RHYTHM. absent: Rubs - GI/Abdominal Exam GI & Abdominal Exam: Soft. absent: Tenderness - Neurological Exam Neurological Exam: Alert, Oriented x3 Assessment and Plan - Assessment and Plan (Free Text) Assessment: routine HD recommendations of cardiology monitor blood sugars
[2018-08-30 12:08] VITALS: PULSE 75
--- NOTE | 2018-08-30 12:55 | CP.PCM.PN ---
Subjective - Date & Time of Evaluation Date of Evaluation: 08/30/18 Time of Evaluation: 11:40 - Subjective Subjective: Patient seen today, comfortable , awake, alert oriented , states feels better , denies any dizziness, chest pain, sob , BS stable for 48 hrs , no hypoglycemic events reported vss - stable Objective - Vital Signs/Intake and Output Vital Signs (last 24 hours): Temp Pulse Resp BP Pulse Ox 98.2 F 75 18 169/68 H 99 08/30/18 07:55 08/30/18 12:08 08/30/18 07:55 08/30/18 07:55 08/30/18 07:55 - Medications Medications: Current Medications Albuterol Sulfate (Albuterol 0.083% Inhal Luisa (2.5 Mg/3 Ml) Ud) 2.5 mg INH RQ6 [facility] Last Admin: 08/30/18 08:04 Dose: 2.5 mg Aspirin (Aspirin Chewable) 81 mg PO DAILY [facility] Last Admin: 08/30/18 09:01 Dose: 81 mg Carvedilol (Coreg) 3.125 mg PO BID [facility] Last Admin: 08/30/18 09:01 Dose: 3.125 mg Clopidogrel Bisulfate (Plavix) 75 mg PO DAILY [facility] Last Admin: 08/30/18 09:01 Dose: 75 mg Enoxaparin Sodium (Lovenox) 30 mg SC DAILY [facility] Last Admin: 08/30/18 09:00 Dose: 30 mg Hydralazine HCl (Apresoline) 25 mg PO BID [facility] Last Admin: 08/30/18 09:01 Dose: 25 mg Insulin Glargine (Lantus) 34 unit SC [facility] Last Admin: 08/29/18 21:49 Dose: 34 units Insulin Human Regular (Novolin R) 0 unit SC [facility]; Protocol Last Admin: 08/30/18 08:55 Dose: 3 units Montelukast Sodium (Singulair) 10 mg PO DAILY [facility] Last Admin: 08/30/18 09:01 Dose: 10 mg Rosuvastatin Calcium (Crestor) 5 mg PO HS [facility] Last Admin: 08/29/18 21:49 Dose: 5 mg Sevelamer Carbonate (Renvela) 800 mg PO TIDCC [facility] Last Admin: 08/30/18 08:55 Dose: 800 mg Vitamin B Complex/Vit C/Folic Acid (Nephro-Marina) 1 tab PO DAILY [facility] Last Admin: 08/30/18 09:01 Dose: 1 tab - Labs Labs: 08/29/18 07:15 08/29/18 07:15 Assessment and Plan - Assessment and Plan (Free Text) Assessment: A/P
--- NOTE | 2018-08-30 14:17 | CARD ---
APPROVED REPORT Date of service: 08/28/2018 EKG Measurement Heart [id number] <Conclusion> Normal sinus rhythm Left axis deviation Minimal voltage criteria for LVH, may be normal variant Septal infarct, age undetermined Abnormal ECG
--- NOTE | 2018-08-30 20:06 | CARD ---
APPROVED REPORT Date of service: 08/27/2018 EKG Measurement Heart [id number] <Conclusion> Sinus tachycardia with fusion complexes Possible Left atrial enlargement Left axis deviation Left ventricular hypertrophy Cannot rule out Septal infarct, age undetermined Abnormal ECG
--- NOTE | 2018-08-31 11:45 | CP.PCM.DIS ---
Provider - Provider Date of Admission: 08/27/18 18:27 Attending physician: Valdez Mccracken MD Time Spent in preparation of Discharge (in minutes): 28 Diagnosis - Discharge Diagnosis (1) CHF (congestive heart failure) Status: Chronic Priority: High (2) ESRD (end stage renal disease) on dialysis Status: Chronic Priority: Medium (3) Elevated brain natriuretic peptide (BNP) level Status: Acute (4) Uncontrolled diabetes mellitus Status: Acute Priority: Medium (5) Acute on chronic diastolic heart failure Status: Acute Priority: Medium Hospital Course - Lab Results Lab Results: Most Recent Lab Values WBC 7.0 K/uL (4.8-10.8) 08/29/18 07:15 RBC 3.80 Mil/uL (3.80-5.20) 08/29/18 07:15 Hgb 10.3 g/dL (11.0-16.0) L 08/29/18 07:15 Hct 31.3 % (34.0-47.0) L 08/29/18 07:15 MCV 82.4 fL (81.0-99.0) 08/29/18 07:15 MCH 27.0 pg (27.0-31.0) 08/29/18 07:15 MCHC 32.8 g/dL (33.0-37.0) L 08/29/18 07:15 RDW 15.8 % (11.5-14.5) H 08/29/18 07:15 Plt Count 194 K/uL (130-400) 08/29/18 07:15 MPV 9.9 fL (7.2-11.7) 08/29/18 07:15 Neut % (Auto) 59.0 % (50.0-75.0) 08/29/18 07:15 Lymph % (Auto) 23.5 % (20.0-40.0) 08/29/18 07:15 [place] % (Auto) 12.9 % (0.0-10.0) H 08/29/18 07:15 Eos % (Auto) 3.9 % (0.0-4.0) 08/29/18 07:15 Baso % (Auto) 0.7 % (0.0-2.0) 08/29/18 07:15 Neut # (Auto) 4.1 K/uL (1.8-7.0) 08/29/18 07:15 Lymph # (Auto) 1.6 K/uL (1.0-4.3) 08/29/18 07:15 [place] # (Auto) 0.9 K/uL (0.0-0.8) H 08/29/18 07:15 Eos # (Auto) 0.3 K/uL (0.0-0.7) 08/29/18 07:15 Baso # (Auto) 0.0 K/uL (0.0-0.2) 08/29/18 07:15 Sodium 135 mmol/L (132-148) 08/29/18 07:15 Potassium 4.8 mmol/L (3.6-5.2) 08/29/18 07:15 Chloride 102 mmol/L (98-107) 08/29/18 07:15 Carbon Dioxide 22 mmol/L (22-30) 08/29/18 07:15 Anion Gap 24 (10-20) H 08/27/18 11:25 BUN 50 mg/dL (7-17) H 08/29/18 07:15 Creatinine 4.0 mg/dL (0.7-1.2) H 08/27/18 11:25 Est GFR ( Amer) 13 08/27/18 11:25 Est GFR (Non-Af Amer) 11 08/27/18 11:25 POC Glucose (mg/dL) 294 mg/dL (65-110) H 08/30/18 11:37 Random Glucose 857 mg/dL (65-105) H* D 08/27/18 11:25 Calcium 9.9 mg/dl (8.6-10.4) 08/27/18 11:25 Total Bilirubin 0.6 mg/dL (0.2-1.3) 08/27/18 11:25 AST 31 U/L (14-36) 08/27/18 11:25 ALT 33 U/L (9-52) 08/27/18 21:38 Alkaline Phosphatase 147 U/L (38-126) H D 08/27/18 11:25 Total Creatine Kinase 111 U/L (30-135) 08/28/18 15:08 CK-MB (Mass) 2.05 ng/mL (0.0-3.38) 08/28/18 15:08 Troponin I 0.3140 ng/mL (0.00-0.120) H* 08/29/18 07:15 NT-Pro-B Natriuret Pep 21283 pg/mL (0-900) H 08/29/18 17:16 Total Protein 7.0 g/dL (6.3-8.3) 08/27/18 11:25 Albumin 4.0 g/dL (3.5-5.0) 08/27/18 11:25 Globulin 3.0 gm/dL (2.2-3.9) 08/27/18 11:25 Albumin/Globulin Ratio 1.4 (1.0-2.1) 08/27/18 11:25 Discharge Exam - Head Exam Head Exam: ATRAUMATIC, NORMAL INSPECTION - Eye Exam Eye Exam: PERRL Pupil Exam: NORMAL ACCOMODATION - ENT Exam ENT Exam: Normal Exam - Neck Exam Neck exam: Normal Inspection - Respiratory Exam Respiratory Exam: Decreased Breath Sounds - Cardiovascular Exam Cardiovascular Exam: REGULAR RHYTHM - GI/Abdominal Exam GI & Abdominal Exam: Normal Bowel Sounds - Exam External exam: NORMAL EXTERNAL EXAM - Extremities Exam Extremities exam: tenderness - Back Exam Back exam: NORMAL INSPECTION - Psychiatric Exam Psychiatric exam: Depressed - Skin Skin Exam: Dry Discharge Plan - Follow Up Plan Condition: FAIR Disposition: HOME/ ROUTINE Instructions: Heart Failure, Adult (DC), End Stage Kidney Disease (DC), Diabetes and Diet Additional Instructions: Please continue dialysis as scheduled Saturday, Saturday, Saturday Please check Blood sugar at least 2 times a day and please take insulin before dialysis (at least 1/2 of the dose) Please take a snack with you on dialysis days if you are taking insulin Continue medication as per med. rec. Please check Blood sugar at night time before lantus, if Blood sugar is BELOW 150 TAKE 1/2 DOSE OF INSULIN and take a snack before bed. Contine con la dilisis segn lo programado el lunes, mircoles y viernes Compruebe el nivel de azcar en la rosie al menos 2 veces al da y tome insulina antes de la dilisis (al menos la mitad de la dosis) Por favor, lleve un refrigerio con usted los robles de dilisis si est tomando insulina. Continuar la medicacin segn med. rec. Compruebe el nivel de azcar en la rosie adrianna la noche antes del lantus, si el nivel de azcar en la rosie es inferior a 150 SARAH 1/2 DOSIS DE INSULINA y tome un refrigerio antes de acostarse. Referrals: Valdez Mccracken MD [Staff Provider] -
== END 2018-08-30 15:11 | disposition home or self-care (01) | DRG 291 ==
LOC: C.ER 14:57 → C.9E 18:27 → C.5S 21:30
PROVIDERS: ADMIT Internal Medicine; ATTEND Internal Medicine
PROC: 5A1D70Z Performance of Urinary Filtration, Intermittent, Less than 6 Hours Per Day (ICD-10-PCS; principal; 2018-08-29)
DX: I13.2 Hypertensive heart and chronic kidney disease with heart failure and with stage 5 chronic kidney disease, or end stage renal disease (principal); I50.33 Acute on chronic diastolic (congestive) heart failure; N18.6 End stage renal disease; E11.65 Type 2 diabetes mellitus with hyperglycemia; E11.21 Type 2 diabetes mellitus with diabetic nephropathy; E11.22 Type 2 diabetes mellitus with diabetic chronic kidney disease; I50.84 End stage heart failure; J43.9 Emphysema, unspecified; R79.89 Other specified abnormal findings of blood chemistry; F03.90 Unspecified dementia, unspecified severity, without behavioral disturbance, psychotic disturbance, mood disturbance, and anxiety; E78.00 Pure hypercholesterolemia, unspecified; K21.9 Gastro-esophageal reflux disease without esophagitis; H54.62 Unqualified visual loss, left eye, normal vision right eye; Z91.14 Patient's other noncompliance with medication regimen; Z79.4 Long term (current) use of insulin; Z99.2 Dependence on renal dialysis; Z86.73 Personal history of transient ischemic attack (TIA), and cerebral infarction without residual deficits; Z87.440 Personal history of urinary (tract) infections

== ENCOUNTER 2018-09-07 19:26 | Inpatient (IN) | payer OTHER ==
[2018-09-07 19:26] VITALS: BMI 30.2
--- NOTE | 2018-09-07 20:14 | C.PDOC ---
History Of Present Illness 82 year old female presents to the ED complaining of cough and shortness of breath worsening since 4 days ago. Reports she has dialysis on Saturday's, Saturday's and Saturday's. Denies any fever, chills, chest pain, nausea, vomiting, diarrhea, abdominal pain, throat pain, or any other associated symptoms. Time Seen by Provider: 09/07/18 20:14 Chief Complaint (Nursing): Shortness Of Breath History Per: Patient History/Exam Limitations: no limitations Onset/Duration Of Symptoms: Days (4) Current Symptoms Are (Timing): Still Present Initiating Event: Other Exacerbating Factor(s): Coughing Current Respiratory Medications: See Home Med List Severity: Moderate Pain Scale Rating Of: 5 Reports Recently: Seen In ED, Treated By A Physician, Hospitalized Recent travel outside of the [place]: No Additional History Per: Patient Past Medical History Reviewed: Historical Data, Nursing Documentation, Vital Signs Vital Signs: Last Vital Signs Temp 97.9 F 09/07/18 19:39 Pulse 68 09/07/18 19:39 Resp 16 09/07/18 19:39 BP 193/61 H 09/07/18 19:39 Pulse Ox 96 09/07/18 19:39 - Medical History PMH: Anxiety, Arthritis, Asthma, Bronchitis, Cardia Arrhythmia, CHF, COPD (Emphysema,), Dementia, Depression, Diabetes (type 2), Emphysema, Fractures, HTN, Hypercholesterolemia, Migraine, End Stage Renal Disease, Chronic Kidney Disease, TIA Other Surgeries: Hx of surgeries - [facility] (08/27/18) ASSISTANCE WITH RESPIRATORY VENTILATION, 24-96 HRS, CPAP (11/01/16) INSERTION OF INFUSION DEV INTO INF VENA CAVA, PERC APPROACH (10/06/15) PERFORMANCE OF URINARY FILTRATION, MULTIPLE (12/24/16) PERFORMANCE OF URINARY FILTRATION, SINGLE (11/01/16) Family History: States: No Known Family Hx - Social History Hx Tobacco Use: No Hx Alcohol Use: No Hx Substance Use: No - Immunization History Hx Tetanus Toxoid Vaccination: Yes Hx Influenza Vaccination: Yes (06/2015) Hx Pneumococcal Vaccination: Yes (2014) Review Of Systems Constitutional: Negative for: Fever, Chills ENT: Negative for: Throat Pain Cardiovascular: Negative for: Chest Pain Respiratory: Positive for: Cough, Shortness of Breath Gastrointestinal: Negative for: Nausea, Vomiting, Abdominal Pain, Diarrhea Physical Exam - Physical Exam Appears: Non-toxic, No Acute Distress Skin: Warm, Dry, No Rash Head: Normacephalic Eye(s): bilateral: Normal Inspection Oral Mucosa: Moist Neck: Supple Chest: Symmetrical Cardiovascular: Rhythm Regular Respiratory: Decreased Breath Sounds, Rales, Rhonchi (scattered ronchi ), No Wheezing Gastrointestinal/Abdominal: Soft, No Tenderness Back: Normal Inspection Extremity: No Pedal Edema, Other (dialysis graft on right arm with good thrill and bruit ) Extremity: Bilateral: Atraumatic Pulses: Left Dorsalis Pedis: Normal, Right Dorsalis Pedis: Normal Neurological/Psych: Oriented x3, Normal Speech Gait: Steady ED Course And Treatment - Laboratory Results Result Diagrams: 09/07/18 21:32 09/07/18 21:32 ECG: Interpreted By Me, Viewed By Me ECG Rhythm: Sinus Rhythm (68), Nonspecific Changes (lvh) O2 Sat by Pulse Oximetry: 96 (RA) Pulse Ox Interpretation: Normal - Radiology CXR: Interpreted by Me, Viewed By Me CXR Interpretation: Yes: Cardiomegaly, Other (chf worse natalie from 08/27/18). No: Infiltrates, Fracture Disposition Discussed With Dr.: Valdez Mccracken Comment: acceptd the pt on his service and took over the care at 10:30 PM Doctor Will See Patient In The: Hospital Counseled Patient/Family Regarding: Studies Performed, Diagnosis - Disposition Disposition: HOSPITALIZED Disposition Time: 20:14 Condition: FAIR Forms: [facility] (Kazakh) - Clinical Impression Clinical Impression: ESRD needing dialysis, Poorly controlled diabetes mellitus, CHF (congestive heart failure) - Scribe Statement The provider has reviewed the documentation as recorded by the Scribdre Arceo All medical record entries made by the Scribe were at my direction and personally dictated by me. I have reviewed the chart and agree that the record accurately reflects my personal performance of the history, physical exam, medical decision making, and the department course for this patient. I have also personally directed, reviewed, and agree with the discharge instructions and disposition. Decision To Admit - Pt Status Changed To: Hospital Disposition Of: Observation - . Bed Request Type: Telemetry Admitting Physician: Valdez Mccracken () Patient Diagnosis: CHF (congestive heart failure), Hyperglycemia, Poorly controlled diabetes mellitus, ESRD needing dialysis
[2018-09-07 21:39] LABS: BASO # 0.1 K/uL (0.0-0.2); BASO % 0.8 % (0.0-2.0); EOS # 0.1 K/uL (0.0-0.7); EOS % 0.7 % (0.0-4.0); HEMOGLOBIN 10.1 g/dL (11.0-16.0); LYMPH # 1.1 K/uL (1.0-4.3); LYMPH % 14.6 % (20.0-40.0); MEAN CORPUSCULAR HGB CONC 32.5 g/dL (33.0-37.0); MEAN PLATELET VOLUME 10.8 fL (7.2-11.7); MONO # 0.9 K/uL (0.0-0.8); MONO % 11.9 % (0.0-10.0); NEUT # 5.5 K/uL (1.8-7.0); NRBC % 0.1 % (0.0-2.0); RBC 3.74 Mil/uL (3.80-5.20); RED CELL DISTRIBUTION WIDTH 15.7 % (11.5-14.5); WHITE BLOOD COUNT 7.7 K/uL (4.8-10.8)
[2018-09-07 21:50] LABS: VENOUS BLOOD GAS BASE EXCESS -2.6 mmol/L (0.0-2.0); VENOUS BLOOD GAS PCO2 43 mmHg (40-60); VENOUS BLOOD GAS PO2 40 mm/Hg (30-55); VENOUS BLOOD PH 7.34 (7.32-7.43)
[2018-09-07 22:06] LABS: ALB/GLOB RATIO 1.3 (1.0-2.1); ALBUMIN 3.8 g/dL (3.5-5.0)
[2018-09-07] MEDS ORDERED: (Novolin R) Insulin Human Regular 100 units/ml vial IVP ONE (22:17)
[2018-09-07 22:34] LABS: INR 1.1; PROTHROMBIN TIME 11.5 SECONDS (9.7-12.2)
[2018-09-07] MEDS ORDERED: (Novolin R) Insulin Human Regular 100 units/ml vial ONE (22:36)
[2018-09-08] MEDS: Albuterol 0.083% Inhal Sol (2.5 mg/3 mL) UD INH SCH (02:25)
[2018-09-08] MEDS ORDERED: Albuterol 0.083% Inhal Sol (2.5 mg/3 mL) UD ONE (02:39)
[2018-09-08] MEDS ORDERED: (Novolog) Insulin Aspart, Recombinant 100 u/ml 10 ml vial SC SCH (07:30)
--- NOTE | 2018-09-08 09:45 | CARD ---
APPROVED REPORT Date of service: 09/07/2018 EKG Measurement Heart [id number] <Conclusion> Normal sinus rhythm Possible Left atrial enlargement Left axis deviation Left ventricular hypertrophy Cannot rule out Septal infarct, age undetermined Abnormal ECG
[2018-09-08] MEDS: Multivitamin Vitamin B Complex (Nephro-Vite) Tab PO SCH (10:22)
--- NOTE | 2018-09-08 10:48 | RAD ---
Date of service: 09/07/2018 PROCEDURE: CHEST RADIOGRAPH, 1 VIEW HISTORY: SOB COMPARISON: 08/27/2018 FINDINGS: LUNGS: The lungs are well inflated and clear. There is right basilar atelectasis. PLEURA: No pneumothorax or pleural effusion. CARDIOVASCULAR: Persistent mild cardiomegaly. No aortic atherosclerotic calcifications present. OSSEOUS STRUCTURES: Within normal limits for the patient's age. VISUALIZED UPPER ABDOMEN: Normal. OTHER FINDINGS: None. IMPRESSION: No active pulmonary disease.
[2018-09-08] MEDS ORDERED: (Novolin R) Insulin Human Regular 100 units/ml vial SC SCH (11:30)
[2018-09-08] MEDS: (Novolog) Insulin Aspart, Recombinant 100 u/ml 10 ml vial SC SCH ×5 (11:39→22:02)
--- NOTE | 2018-09-08 19:16 | CP.PCM.CON ---
History of Present Illness - History of Present Illness History of Present Illness: REASONS FOR CONSULT : ESRD ON HD [facility] ELECTROLYTES ABN .. HYPONATREMIA AND HYPERKALEMIA ANEMIA OF CKD SOB WITH BNP 67599 ..IN NEED FOR URGENT HD WAS SEEN ON HD WHICH I ARRANGED STAT PT IS WELL KNOWN TO ME .. ON HD [facility] CAME TO ER WITH C/C OF SOB 82 year old female presents to the ED complaining of cough and shortness of breath worsening since 4 days ago. Reports she has dialysis on Saturday's, Saturday's and Saturday'. Denies any fever, chills, chest pain, nausea, vomiting, diarrhea, abdominal pain, throat pain, or any other associated symptoms. Time Seen by Provider: 09/07/18 20:14 Chief Complaint (Nursing): Shortness Of Breath History Per: Patient History/Exam Limitations: no limitations Onset/Duration Of Symptoms: Days (4) Current Symptoms Are (Timing): Still Present Initiating Event: Other Exacerbating Factor(s): Coughing Current Respiratory Medications: See Home Med List Severity: Moderate Pain Scale Rating Of: 5 Reports Recently: Seen In ED, Treated By A Physician, Hospitalized Recent travel outside of the [place]: No Additional History Per: Patient Past Medical History Reviewed: Historical Data, Nursing Documentation, Vital Signs Vital Signs: Last Vital Signs Temp 97.9 F 09/07/18 19:39 Pulse 68 09/07/18 19:39 Resp 16 09/07/18 19:39 BP 193/61 H 09/07/18 19:39 Pulse Ox 96 09/07/18 19:39 - Medical History PMH: Anxiety, Arthritis, Asthma, Bronchitis, Cardia Arrhythmia, CHF, COPD (Emphysema,), Dementia, Depression, Diabetes (type 2), Emphysema, Fractures, HTN, Hypercholesterolemia, Migraine, End Stage Renal Disease, Chronic Kidney Disease, TIA Other Surgeries: Hx of surgeries - [facility] (08/27/18) ASSISTANCE WITH RESPIRATORY VENTILATION, 24-96 HRS, CPAP (11/01/16) INSERTION OF INFUSION DEV INTO INF VENA CAVA, PERC APPROACH (10/06/15) PERFORMANCE OF URINARY FILTRATION, MULTIPLE (12/24/16) PERFORMANCE OF URINARY FILTRATION, SINGLE (11/01/16) Family History: States: No Known Family Hx - Social History Hx Tobacco Use: No Hx Alcohol Use: No Hx Substance Use: No - Immunization History Hx Tetanus Toxoid Vaccination: Yes Hx Influenza Vaccination: Yes (06/2015) Hx Pneumococcal Vaccination: Yes (2014) Past Patient History - Infectious Disease Hx of Infectious Diseases: None - Tetanus Immunizations Tetanus Immunization: Unknown, Up to Date - Past Medical History & Family History Past Medical History?: Yes - Past Social History Smoking Status: Never Smoked - CARDIAC Hx Hypercholesterolemia: Yes Hx Hypertension: Yes - PULMONARY Hx Asthma: Yes Hx Bronchitis: Yes Hx Chronic Obstructive Pulmonary Disease (COPD): Yes (Emphysema,) Hx Emphysema: Yes - NEUROLOGICAL Hx Dementia: Yes Hx Migraine: Yes Hx Transient Ischemic Attacks (TIA): Yes - HEENT Hx HEENT Problems: Yes Hx Blind: Yes (Left eye.) - RENAL Hx Chronic Kidney Disease: Yes - ENDOCRINE/METABOLIC Hx Diabetes Mellitus Type 2: Yes - HEMATOLOGICAL/ONCOLOGICAL Hx Blood Disorders: No - INTEGUMENTARY Hx Dermatological Problems: Yes Hx Cellulitis: Yes Hx Eczema: Yes - MUSCULOSKELETAL/RHEUMATOLOGICAL Hx Arthritis: Yes Hx Fractures: Yes - GASTROINTESTINAL Hx Gastrointestinal Disorders: Yes Hx Gastroesophageal Reflux: Yes Hx Hemorrhoids: Yes - GENITOURINARY/GYNECOLOGICAL Hx Genitourinary Disorders: Yes Hx Urinary Tract Infection: Yes - PSYCHIATRIC Hx Anxiety: Yes Hx Depression: Yes Hx Substance Use: No - SURGICAL HISTORY Hx Surgeries: Yes Hx Arteriovenous Shunt: Yes (right arm) - ANESTHESIA Hx Anesthesia: Yes Hx Anesthesia Reactions: No Hx Malignant Hyperthermia: No Meds Allergies/Adverse Reactions: Allergies Allergy/AdvReac Type Severity Reaction Status Date / Time No Known Allergies Allergy Verified 09/07/18 19:41 - Medications Medications: Current Medications Albuterol Sulfate (Albuterol 0.083% Inhal Luisa (2.5 Mg/3 Ml) Ud) 2.5 mg INH RQ6 [facility] Last Admin: 09/08/18 02:25 Dose: 2.5 mg Aspirin (Aspirin Chewable) 81 mg PO DAILY [facility] Last Admin: 09/08/18 10:22 Dose: 81 mg Clopidogrel Bisulfate (Plavix) 75 mg PO DAILY [facility] Last Admin: 09/08/18 10:22 Dose: 75 mg Donepezil HCl (Aricept) 10 mg PO HS [facility] Furosemide (Lasix) 40 mg PO DAILY [facility] Last Admin: 09/08/18 10:23 Dose: Not Given Heparin Sodium (Porcine) (Heparin) 5,000 units SC Q12H [facility] Last Admin: 09/08/18 10:22 Dose: 5,000 units Hydralazine HCl (Apresoline) 25 mg PO BID [facility] Last Admin: 09/08/18 17:41 Dose: Not Given Hydralazine HCl (Apresoline) 10 mg IVP Q6H PRN PRN Reason: Systolic Blood Pressure Insulin Aspart (Novolog) 14 unit SC AC [facility] Last Admin: 09/08/18 16:39 Dose: 14 units Insulin Aspart (Novolog) 0 unit SC ACHS [facility] Last Admin: 09/08/18 16:54 Dose: Not Given Insulin Glargine (Lantus) 40 unit SC HS [facility] Montelukast Sodium (Singulair) 10 mg PO HS [facility] Rosuvastatin Calcium (Crestor) 5 mg PO HS [facility] Sevelamer Carbonate (Renvela) 800 mg PO TIDCC [facility] Last Admin: 09/08/18 17:39 Dose: 800 mg Vitamin B Complex/Vit C/Folic Acid (Nephro-Marina) 1 tab PO DAILY [facility] Last Admin: 09/08/18 10:22 Dose: 1 tab Results - Vital Signs Recent Vital Signs: Last Vital Signs Temp 99.3 F 09/08/18 15:55 Pulse 62 09/08/18 16:00 Resp 20 09/08/18 15:55 BP 140/66 09/08/18 15:55 Pulse Ox 96 09/08/18 15:55 - Labs Result Diagrams: 09/07/18 21:32 09/07/18 21:32 Labs: Laboratory Results - last 24 hr 09/07/18 09/07/18 09/07/18 21:32 21:32 21:47 WBC 7.7 RBC 3.74 L Hgb 10.1 L Hct 31.0 L MCV 83.0 MCH 27.0 MCHC 32.5 L RDW 15.7 H Plt Count 256 MPV 10.8 Neut % (Auto) 72.0 Lymph % (Auto) 14.6 L [place] % (Auto) 11.9 H Eos % (Auto) 0.7 Baso % (Auto) 0.8 Neut # (Auto) 5.5 Lymph # (Auto) 1.1 [place] # (Auto) 0.9 H Eos # (Auto) 0.1 Baso # (Auto) 0.1 PT INR APTT pO2 40 VBG pH 7.34 VBG pCO2 43 VBG HCO3 22.2 VBG Total CO2 24.5 VBG O2 Sat (Calc) 77.8 H VBG Base Excess -2.6 L VBG Potassium 5.0 Glucose 732 H* D Lactate 2.6 H Crit Value Called To graciela Dunn Crit Value Called By Sharee mata,jose de jesus Crit Value Read Back Y Blood Gas Notified Time 2150 Sodium 124 L 129.0 L Potassium 5.4 H Chloride 87 L 93.0 L Carbon Dioxide 22 Anion Gap 20 BUN 57 H Creatinine 3.8 H Est GFR ( Amer) 14 Est GFR (Non-Af Amer) 11 POC Glucose (mg/dL) Random Glucose 663 H* D Calcium 9.0 Total Bilirubin 0.9 AST 45 H D ALT 28 Alkaline Phosphatase 126 NT-Pro-B Natriuret Pep 51320 H Total Protein 6.8 Albumin 3.8 Globulin 3.0 Albumin/Globulin Ratio 1.3 Venous Blood Potassium 5.0 09/07/18 09/07/18 09/07/18 22:01 23:00 23:04 WBC RBC Hgb Hct MCV MCH MCHC RDW Plt Count MPV Neut % (Auto) Lymph % (Auto) [place] % (Auto) Eos % (Auto) Baso % (Auto) Neut # (Auto) Lymph # (Auto) [place] # (Auto) Eos # (Auto) Baso # (Auto) PT 11.5 INR 1.1 APTT 28 pO2 VBG pH VBG pCO2 VBG HCO3 VBG Total CO2 VBG O2 Sat (Calc) VBG Base Excess VBG Potassium Glucose Lactate Crit Value Called To Crit Value Called By Crit Value Read Back Blood Gas Notified Time Sodium Potassium Chloride Carbon Dioxide Anion Gap BUN Creatinine Est GFR ( Amer) Est GFR (Non-Af Amer) POC Glucose (mg/dL) > 500 H* 471 H* Random Glucose Calcium Total Bilirubin AST ALT Alkaline Phosphatase NT-Pro-B Natriuret Pep Total Protein Albumin Globulin Albumin/Globulin Ratio Venous Blood Potassium 09/08/18 09/08/18 05:31 11:31 WBC RBC Hgb Hct MCV MCH MCHC RDW Plt Count MPV Neut % (Auto) Lymph % (Auto) [place] % (Auto) Eos % (Auto) Baso % (Auto) Neut # (Auto) Lymph # (Auto) [place] # (Auto) Eos # (Auto) Baso # (Auto) PT INR APTT pO2 VBG pH VBG pCO2 VBG HCO3 VBG Total CO2 VBG O2 Sat (Calc) VBG Base Excess VBG Potassium Glucose Lactate Crit Value Called To Crit Value Called By Crit Value Read Back Blood Gas Notified Time Sodium Potassium Chloride Carbon Dioxide Anion Gap BUN Creatinine Est GFR ( Amer) Est GFR (Non-Af Amer) POC Glucose (mg/dL) 375 H 441 H* Random Glucose Calcium Total Bilirubin AST ALT Alkaline Phosphatase NT-Pro-B Natriuret Pep Total Protein Albumin Globulin Albumin/Globulin Ratio Venous Blood Potassium Assessment & Plan - Assessment and Plan (Free Text) Assessment: ESRD ON HD M W F .. TO GET HD RIGHT NOW SOB .. CHF .. F. OVERLOAD .. P . EDEMA .. NEEDS STAT HD ELECTROLYTES ABN .. HYPO NATREMIA .. HYPERKALEMIA .. NEEDS STAT HD F. OVERLOAD .. P . EDEMA . CHF .. NEEDS STAT HD ANEMIA OF CKD .. H/H STABLE MMP P : STAT HD FOR UF OF 3 LITRE RENAL AND DIABETIC DIET .. 2 GM NA .. 2 GM K .. 100 GM PROTIEN .. 1800 RONALD ADA .. FR 1.5 L / D C/O CURRENT MEDS DIETARY CONSULT AND COUNSELLING WILL F/U CLOSELY - Date & Time Date: 09/08/18 Time: 17:00
[2018-09-08] MEDS ORDERED: (Lantus) Insulin Glargine, Recombinant SC SCH ×2 (22:00)
--- NOTE | 2018-09-08 22:16 | CON ---
DATE: 09/08/2018 ENDOCRINOLOGY CONSULTATION LOCATION: Room 664. HISTORY OF PRESENT ILLNESS: This is an 82-year-old female with a known history of type 2 insulin-requiring diabetes, presenting here with progressive shortness of breath and productive cough, has acute exacerbation of COPD and is now being referred for diabetic evaluation because of persistent hyperglycemic accelerations as noted thereof. PAST MEDICAL HISTORY: As mentioned above, history of type 2 insulin-requiring diabetes, on a combination of NovoLog given as 10 units b.i.d. with meals and Lantus given as 34 units at bedtime; history of hypertension and dyslipidemia; history of diabetic retinopathy, polyneuropathy and nephropathy with end-stage renal disease and dialysis dependence; history of coronary artery disease and peripheral arterial disease and vasculopathy; history of cardiac tachyarrhythmias with previous admissions for congestive heart failure; history of chronic obstructive lung disease with multiple admissions for exacerbation of the same; history of diffuse osteoarthritis; also a history of generalized anxiety and depression with early dementia. FAMILY HISTORY: Positive for diabetes and hypertension. SOCIAL HISTORY: The patient has a supportive family. No known substance use. REVIEW OF SYSTEMS: Admits to generalized body weakness with easy fatigability, tiredness and suboptimal energy levels. Also admits to dizziness and lightheadedness, worse on the day of admission. No chest pain, but admits to progressive shortness of breath initially on exertion and then at rest with paroxysmal nocturnal dyspnea. Her oral intake has been variable with nausea, dyspepsia and vague upper abdominal pain. Also admits to habitual constipation. PHYSICAL EXAMINATION: GENERAL: This is an elderly female, in no apparent distress. VITAL SIGNS: Blood pressure 150/90, pulse 100 beats per minute and regular, temperature 98, respirations 20. Height is 5 feet. Weight is 160 pounds. HEENT: Head is normocephalic. Eyes, anicteric with pink conjunctivae. Funduscopy is not possible at this time. Ears, nose and throat otherwise normal. NECK: Supple. Thyroid gland is normal in size. No carotid bruits or any cervical adenopathy. CARDIOPULMONARY: Some adynamic precordium. S1 and S2 are rapid and regular. . ABDOMEN: Flat, soft and positive bowel sounds. EXTREMITIES: No peripheral edema. Pulses are +2 bilaterally. LABORATORY DATA: Her chemistries showed a BUN of 67, sodium 124, potassium 5.4, chloride 87, CO2 of 23, glucose 663, and creatinine 3.2. Her last glucose today is ranging from 375 to 471 mg/dL. ASSESSMENT: This is an 82-year-old female with uncontrolled and decompensated type 2 insulin-requiring diabetes, presenting here with acute exacerbation of chronic obstructive pulmonary disease with supervening marked hyperglycemic accelerations as noted thereof. She has diabetic microvascular complications of retinopathy, polyneuropathy and nephropathy with underlying end-stage renal disease and dialysis dependence. She also has diabetic macrovascular complications of coronary artery disease with underlying peripheral arterial disease and vasculopathy. PLAN OF MANAGEMENT: We will modify her current insulin regimen to a much higher dose combination to optimize metabolic control. We will increase the NovoLog to 14 units subcu t.i.d. before meals to start at lunchtime today as ordered. We will also increase the basal insulin with Lantus to be given as 40 units subcu at bedtime daily to start tonight. We will titrate incrementally as indicated to optimize metabolic control. We will obtain serial chemistries and supplement accordingly as needed. We will follow. Bella Gold MD
--- NOTE | 2018-09-08 22:19 | CP.PCM.HP ---
History of Present Illness - History of Present Illness History of Present Illness: 82 year old female developed cough and shortness of eric while at home once transported to the [facility] emergency room for evaluation. Physical examinati and lab studies revealed a blood sugar of 720, probe ENT of 30 tablets and vascular congestion on the chest x-ray. Admission was suggested. Present on Admission - Present on Admission Any Indicators Present on Admission: No History of DVT/PE: No History of Uncontrolled Diabetes: Yes Urinary Catheter: No Decubitus Ulcer Present: No History Surgical Site Infection Following: None Review of Systems - Review of Systems Systems not reviewed;Unavailable: Respiratory Distress - Constitutional Constitutional: Weakness - Cardiovascular Cardiovascular: Dyspnea on Exertion - Respiratory Respiratory: Cough - Gastrointestinal Gastrointestinal: Heartburn - Menstruation Menstruation: Post Menopausal - Musculoskeletal Musculoskeletal: Arthralgias - Neurological Neurological: Dizziness - Psychiatric Psychiatric: Depression Past Patient History - Infectious Disease Hx of Infectious Diseases: None - Tetanus Immunizations Tetanus Immunization: Unknown, Up to Date - Past Medical History & Family History Past Medical History?: Yes - Past Social History Smoking Status: Never Smoked Chewing Tobacco Use: No Cigar Use: No Alcohol: None Drugs: Denies Home Situation {Lives}: Alone Domestic Violence: Negative - CARDIAC Hx Congestive Heart Failure: Yes Hx Hypercholesterolemia: Yes Hx Hypertension: Yes - PULMONARY Hx Asthma: Yes Hx Bronchitis: Yes Hx Chronic Obstructive Pulmonary Disease (COPD): Yes (Emphysema,) Hx Emphysema: Yes - NEUROLOGICAL Hx Dementia: Yes Hx Migraine: Yes Hx Transient Ischemic Attacks (TIA): Yes - HEENT Hx HEENT Problems: Yes Hx Blind: Yes (Left eye.) - RENAL Hx Chronic Kidney Disease: Yes - ENDOCRINE/METABOLIC Hx Diabetes Mellitus Type 2: Yes - HEMATOLOGICAL/ONCOLOGICAL Hx Blood Disorders: No - INTEGUMENTARY Hx Dermatological Problems: Yes Hx Cellulitis: Yes Hx Eczema: Yes - MUSCULOSKELETAL/RHEUMATOLOGICAL Hx Arthritis: Yes Hx Fractures: Yes - GASTROINTESTINAL Hx Gastrointestinal Disorders: Yes Hx Gastroesophageal Reflux: Yes Hx Hemorrhoids: Yes - GENITOURINARY/GYNECOLOGICAL Hx Genitourinary Disorders: Yes Hx Urinary Tract Infection: Yes - PSYCHIATRIC Hx Anxiety: Yes Hx Depression: Yes Hx Substance Use: No - SURGICAL HISTORY Hx Surgeries: Yes Hx Arteriovenous Shunt: Yes (right arm) - ANESTHESIA Hx Anesthesia: Yes Hx Anesthesia Reactions: No Hx Malignant Hyperthermia: No Meds Allergies/Adverse Reactions: Allergies Allergy/AdvReac Type Severity Reaction Status Date / Time No Known Allergies Allergy Verified 09/07/18 19:41 Physical Exam - Constitutional Appears: Chronically Ill - Head Exam Head Exam: ATRAUMATIC - Eye Exam Eye Exam: Normal appearance Pupil Exam: NORMAL ACCOMODATION - ENT Exam ENT Exam: Normal Exam - Neck Exam Neck exam: Positive for: Normal Inspection - Respiratory Exam Respiratory Exam: Decreased Breath Sounds - Cardiovascular Exam Cardiovascular Exam: REGULAR RHYTHM - GI/Abdominal Exam GI & Abdominal Exam: Normal Bowel Sounds - Rectal Exam Rectal Exam: Deferred - Exam External exam: NORMAL EXTERNAL EXAM - Extremities Exam Extremities exam: Positive for: pedal edema - Back Exam Back exam: NORMAL INSPECTION - Neurological Exam Neurological exam: Oriented x3 - Psychiatric Exam Psychiatric exam: Depressed - Skin Skin Exam: Dry Results - Vital Signs Recent Vital Signs: Last Vital Signs Temp 97.9 F 09/08/18 22:00 Pulse 61 09/08/18 22:00 Resp 20 09/08/18 22:00 BP 142/64 09/08/18 22:00 Pulse Ox 96 09/08/18 22:00 - Labs Result Diagrams: 09/07/18 21:32 09/07/18 21:32 Labs: Laboratory Results - last 24 hr 09/07/18 09/07/18 09/07/18 21:32 22:01 23:00 PT 11.5 INR 1.1 APTT 28 POC Glucose (mg/dL) > 500 H* Random Glucose 663 H* D 09/07/18 09/08/18 09/08/18 23:04 05:31 11:31 PT INR APTT POC Glucose (mg/dL) 471 H* 375 H 441 H* Random Glucose 09/08/18 09/08/18 16:21 21:43 PT INR APTT POC Glucose (mg/dL) 176 H 101 Random Glucose Assessment & Plan (1) ESRD needing dialysis Status: Acute (2) Poorly controlled diabetes mellitus Status: Acute (3) Acute on chronic diastolic heart failure Status: Acute Priority: Medium (4) Degenerative arthritis Status: Acute Priority: Medium
--- NOTE | 2018-09-08 23:18 | CP.PCM.CON ---
History of Present Illness - History of Present Illness History of Present Illness: 82 yo female came to the ED at [facility] complaining of increasing SOB for the past few days. She was found to be hyperglycemic, hyponatremic, hyperkalemic and in an acute CHF. She is known to have an IDDM, an ESRD, a hypertension, a COPD, mild dementia. She lives alone, and is very forgetful. She states that did not miss her HD sessions, but admits to forget to inject insulin to herself. A recent echocardiogram revealed a normal LV systolic function with a grade I diastolic dysfunction. Patient denies any fever, chills, chest pain. A stat HD was ordered by Dr Diaz. Review of Systems - Cardiovascular Cardiovascular: Dyspnea - Respiratory Respiratory: Dyspnea Past Patient History - Infectious Disease Hx of Infectious Diseases: None - Tetanus Immunizations Tetanus Immunization: Unknown, Up to Date - Past Medical History & Family History Past Medical History?: Yes - Past Social History Smoking Status: Never Smoked Chewing Tobacco Use: No Cigar Use: No Alcohol: None Drugs: Denies Home Situation {Lives}: Alone Domestic Violence: Negative - CARDIAC Hx Congestive Heart Failure: Yes Hx Hypercholesterolemia: Yes Hx Hypertension: Yes - PULMONARY Hx Asthma: Yes Hx Bronchitis: Yes Hx Chronic Obstructive Pulmonary Disease (COPD): Yes (Emphysema,) Hx Emphysema: Yes - NEUROLOGICAL Hx Dementia: Yes Hx Migraine: Yes Hx Transient Ischemic Attacks (TIA): Yes - HEENT Hx HEENT Problems: Yes Hx Blind: Yes (Left eye.) - RENAL Hx Chronic Kidney Disease: Yes - ENDOCRINE/METABOLIC Hx Diabetes Mellitus Type 2: Yes - HEMATOLOGICAL/ONCOLOGICAL Hx Blood Disorders: No - INTEGUMENTARY Hx Dermatological Problems: Yes Hx Cellulitis: Yes Hx Eczema: Yes - MUSCULOSKELETAL/RHEUMATOLOGICAL Hx Arthritis: Yes Hx Fractures: Yes - GASTROINTESTINAL Hx Gastrointestinal Disorders: Yes Hx Gastroesophageal Reflux: Yes Hx Hemorrhoids: Yes - GENITOURINARY/GYNECOLOGICAL Hx Genitourinary Disorders: Yes Hx Urinary Tract Infection: Yes - PSYCHIATRIC Hx Anxiety: Yes Hx Depression: Yes Hx Substance Use: No - SURGICAL HISTORY Hx Surgeries: Yes Hx Arteriovenous Shunt: Yes (right arm) - ANESTHESIA Hx Anesthesia: Yes Hx Anesthesia Reactions: No Hx Malignant Hyperthermia: No Meds Allergies/Adverse Reactions: Allergies Allergy/AdvReac Type Severity Reaction Status Date / Time No Known Allergies Allergy Verified 09/07/18 19:41 - Medications Medications: Current Medications Albuterol Sulfate (Albuterol 0.083% Inhal Luisa (2.5 Mg/3 Ml) Ud) 2.5 mg INH RQ6 [facility] Last Admin: 09/08/18 02:25 Dose: 2.5 mg Aspirin (Aspirin Chewable) 81 mg PO DAILY [facility] Last Admin: 09/08/18 10:22 Dose: 81 mg Clopidogrel Bisulfate (Plavix) 75 mg PO DAILY [facility] Last Admin: 09/08/18 10:22 Dose: 75 mg Donepezil HCl (Aricept) 10 mg PO [facility] Last Admin: 09/08/18 21:56 Dose: 10 mg Furosemide (Lasix) 40 mg PO DAILY [facility] Last Admin: 09/08/18 10:23 Dose: Not Given Heparin Sodium (Porcine) (Heparin) 5,000 units SC Q12H [facility] Last Admin: 09/08/18 21:01 Dose: Not Given Hydralazine HCl (Apresoline) 25 mg PO BID [facility] Last Admin: 09/08/18 17:41 Dose: Not Given Hydralazine HCl (Apresoline) 10 mg IVP Q6H PRN PRN Reason: Systolic Blood Pressure Insulin Aspart (Novolog) 14 unit SC AC [facility] Last Admin: 09/08/18 16:39 Dose: 14 units Insulin Aspart (Novolog) 0 unit SC ACHS [facility] Last Admin: 09/08/18 22:02 Dose: Not Given Insulin Glargine (Lantus) 40 unit SC [facility] Last Admin: 09/08/18 22:01 Dose: Not Given Montelukast Sodium (Singulair) 10 mg PO [facility] Last Admin: 09/08/18 21:56 Dose: 10 mg Rosuvastatin Calcium (Crestor) 5 mg PO [facility] Last Admin: 09/08/18 21:56 Dose: 5 mg Sevelamer Carbonate (Renvela) 800 mg PO TIDCC [facility] Last Admin: 09/08/18 17:39 Dose: 800 mg Vitamin B Complex/Vit C/Folic Acid (Nephro-Marina) 1 tab PO DAILY [facility] Last Admin: 09/08/18 10:22 Dose: 1 tab Physical Exam - Constitutional Appears: Well, No Acute Distress, Chronically Ill - Head Exam Head Exam: NORMAL INSPECTION - Eye Exam Eye Exam: Normal appearance Pupil Exam: NORMAL ACCOMODATION - ENT Exam ENT Exam: Normal Exam - Neck Exam Neck exam: Positive for: Normal Inspection - Respiratory Exam Respiratory Exam: Rales, Rhonchi Additional comments: Few rhonchi and rales at both bases. - Cardiovascular Exam Cardiovascular Exam: REGULAR RHYTHM, Systolic Murmur - GI/Abdominal Exam GI & Abdominal Exam: Normal Bowel Sounds, Soft - Rectal Exam Rectal Exam: Deferred - Extremities Exam Extremities exam: Positive for: normal inspection - Back Exam Back exam: NORMAL INSPECTION - Neurological Exam Neurological exam: Alert, Oriented x3 - Psychiatric Exam Psychiatric exam: Anxious - Skin Skin Exam: Dry, Intact Results - Vital Signs Recent Vital Signs: Last Vital Signs Temp 97.9 F 09/08/18 22:00 Pulse 61 09/08/18 22:00 Resp 20 09/08/18 22:00 BP 142/64 09/08/18 22:00 Pulse Ox 96 09/08/18 22:00 - Labs Result Diagrams: 09/07/18 21:32 09/07/18 21:32 Labs: Laboratory Results - last 24 hr 09/07/18 09/07/18 09/08/18 23:00 23:04 05:31 POC Glucose (mg/dL) > 500 H* 471 H* 375 H 09/08/18 09/08/18 09/08/18 11:31 16:21 21:43 POC Glucose (mg/dL) 441 H* 176 H 101 Assessment & Plan (1) Acute on chronic diastolic CHF (congestive heart failure) Assessment and Plan: Due to fluid overload. To Do HD as catcher helper Status: Acute (2) Hyperglycemia Assessment and Plan: Adjust Insulin dosage as per Assembler Truck Trailer. Status: Acute (3) ESRD needing dialysis Assessment and Plan: HD as per catcher helper. Status: Acute
[2018-09-09] MEDS: Albuterol 0.083% Inhal Sol (2.5 mg/3 mL) UD INH SCH ×3 (01:59→13:00)
[2018-09-09 06:28] LABS: BASO % 0.6 % (0.0-2.0); EOS # 0.2 K/uL (0.0-0.7); EOS % 2.8 % (0.0-4.0); HEMOGLOBIN 10.8 g/dL (11.0-16.0); LYMPH # 1.6 K/uL (1.0-4.3); LYMPH % 25.8 % (20.0-40.0); MEAN CELL VOLUME 82.7 fL (81.0-99.0); MEAN CORPUSCULAR HEMOGLOBIN 27.3 pg (27.0-31.0); MEAN CORPUSCULAR HGB CONC 33.1 g/dL (33.0-37.0); MONO # 0.8 K/uL (0.0-0.8); MONO % 12.2 % (0.0-10.0); NEUT # 3.7 K/uL (1.8-7.0); NEUT % 58.6 % (50.0-75.0); RBC 3.96 Mil/uL (3.80-5.20); WHITE BLOOD COUNT 6.3 K/uL (4.8-10.8)
[2018-09-09 06:52] LABS: ALB/GLOB RATIO 1.3 (1.0-2.1); ALBUMIN 3.6 g/dL (3.5-5.0); CALCIUM 9.1 mg/dl (8.6-10.4)
[2018-09-09] MEDS ORDERED: (Novolog) Insulin Aspart, Recombinant 100 u/ml 10 ml vial SC STA (07:04)
[2018-09-09] MEDS: (Novolog) Insulin Aspart, Recombinant 100 u/ml 10 ml vial SC SCH ×7 (07:31→21:36)
[2018-09-09] MEDS: Multivitamin Vitamin B Complex (Nephro-Vite) Tab PO SCH (10:18)
[2018-09-09] MEDS ORDERED: (Novolog) Insulin Aspart, Recombinant 100 u/ml 10 ml vial SC SCH (11:33)
--- NOTE | 2018-09-09 16:12 | CP.PCM.PN ---
Subjective - Date & Time of Evaluation Date of Evaluation: 09/09/18 Time of Evaluation: 14:00 - Subjective Subjective: SEEN ON RENAL F/U FEELS MUCH BETTER ALL PREVIOUS EMR REVIEWED HAD HER HD YESTERDAY Objective - Vital Signs/Intake and Output Vital Signs (last 24 hours): Temp Pulse Resp BP Pulse Ox 98.7 F 69 18 149/71 95 09/09/18 08:23 09/09/18 13:32 09/09/18 08:23 09/09/18 10:18 09/09/18 12:00 Intake and Output: 09/09/18 09/09/18 06:59 18:59 Intake Total 480 600 Balance 480 600 - Medications Medications: Current Medications Albuterol Sulfate (Albuterol 0.083% Inhal Luisa (2.5 Mg/3 Ml) Ud) 2.5 mg INH RQ6 [facility] Last Admin: 09/09/18 01:59 Dose: Not Given Aspirin (Aspirin Chewable) 81 mg PO DAILY [facility] Last Admin: 09/09/18 10:18 Dose: 81 mg Clopidogrel Bisulfate (Plavix) 75 mg PO DAILY [facility] Last Admin: 09/09/18 10:18 Dose: 75 mg Donepezil HCl (Aricept) 10 mg PO HS [facility] Last Admin: 09/08/18 21:56 Dose: 10 mg Furosemide (Lasix) 40 mg PO DAILY [facility] Last Admin: 09/09/18 10:18 Dose: 40 mg Heparin Sodium (Porcine) (Heparin) 5,000 units SC Q12H [facility] Last Admin: 09/09/18 09:45 Dose: 5,000 units Hydralazine HCl (Apresoline) 25 mg PO BID [facility] Last Admin: 09/09/18 10:18 Dose: 25 mg Hydralazine HCl (Apresoline) 10 mg IVP Q6H PRN PRN Reason: Systolic Blood Pressure Insulin Aspart (Novolog) 0 unit SC ACHS [facility] Last Admin: 09/09/18 11:50 Dose: 4 units Insulin Aspart (Novolog) 20 unit SC AC [facility] Last Admin: 09/09/18 11:51 Dose: 20 units Insulin Glargine (Lantus) 40 unit SC HS [facility] Last Admin: 09/08/18 22:01 Dose: Not Given Montelukast Sodium (Singulair) 10 mg PO HS [facility] Last Admin: 09/08/18 21:56 Dose: 10 mg Rosuvastatin Calcium (Crestor) 5 mg PO HS [facility] Last Admin: 09/08/18 21:56 Dose: 5 mg Sevelamer Carbonate (Renvela) 800 mg PO TIDCC [facility] Last Admin: 09/09/18 13:00 Dose: 800 mg Vitamin B Complex/Vit C/Folic Acid (Nephro-Marina) 1 tab PO DAILY [facility] Last Admin: 09/09/18 10:18 Dose: 1 tab - Labs Labs: 09/09/18 06:15 09/09/18 06:15 PT 11.5 SECONDS (9.7-12.2) 09/07/18 22:01 INR 1.1 09/07/18 22:01 APTT 28 SECONDS (21-34) 09/07/18 22:01 Assessment and Plan - Assessment and Plan (Free Text) Assessment: ESRD ON HD M W F ANEMIA OF CKD .. H/H STABLE ELECTROLYTES ABN .. CORRECTED ON HD HYPERGLYCEMIA MMP P : C/O HD ON M W F C/O PRESENT CARE C/O SAME MEDS
[2018-09-09] MEDS ORDERED: (Lantus) Insulin Glargine, Recombinant SC SCH (22:00)
--- NOTE | 2018-09-09 22:36 | CP.PCM.PN ---
Subjective - Date & Time of Evaluation Date of Evaluation: 09/09/18 Time of Evaluation: 19:10 - Subjective Subjective: patient is more alert and responsive. Blood sugar under much better control. Latest blood sugar level 102. Ms. Prater was evaluated by Dr. Mei. Patient was also se by her marketing financial analyst Dr. Diaz. he suggests patient resume Saturday,Saturday and Saturday dialysis schedule. Objective - Vital Signs/Intake and Output Vital Signs (last 24 hours): Temp Pulse Resp BP Pulse Ox 97.8 F 56 L 20 126/63 98 09/09/18 15:15 09/09/18 16:00 09/09/18 15:15 09/09/18 15:15 09/09/18 15:15 Intake and Output: 09/09/18 09/10/18 18:59 06:59 Intake Total 600 400 Balance 600 400 - Medications Medications: Current Medications Albuterol Sulfate (Albuterol 0.083% Inhal Luisa (2.5 Mg/3 Ml) Ud) 2.5 mg INH RQ6 [facility] Last Admin: 09/09/18 01:59 Dose: Not Given Aspirin (Aspirin Chewable) 81 mg PO DAILY [facility] Last Admin: 09/09/18 10:18 Dose: 81 mg Clopidogrel Bisulfate (Plavix) 75 mg PO DAILY [facility] Last Admin: 09/09/18 10:18 Dose: 75 mg Donepezil HCl (Aricept) 10 mg PO HS [facility] Last Admin: 09/09/18 21:35 Dose: 10 mg Furosemide (Lasix) 40 mg PO DAILY [facility] Last Admin: 09/09/18 10:18 Dose: 40 mg Heparin Sodium (Porcine) (Heparin) 5,000 units SC Q12H [facility] Last Admin: 09/09/18 21:36 Dose: 5,000 units Hydralazine HCl (Apresoline) 25 mg PO BID [facility] Last Admin: 09/09/18 18:00 Dose: 25 mg Hydralazine HCl (Apresoline) 10 mg IVP Q6H PRN PRN Reason: Systolic Blood Pressure Insulin Aspart (Novolog) 0 unit SC ACHS [facility] Last Admin: 09/09/18 21:36 Dose: 4 units Insulin Aspart (Novolog) 12 unit SC AC [facility] Insulin Glargine (Lantus) 30 unit SC HS [facility] Last Admin: 09/09/18 21:36 Dose: 30 units Montelukast Sodium (Singulair) 10 mg PO HS [facility] Last Admin: 09/09/18 21:35 Dose: 10 mg Rosuvastatin Calcium (Crestor) 5 mg PO HS [facility] Last Admin: 09/09/18 21:36 Dose: 5 mg Sevelamer Carbonate (Renvela) 800 mg PO TIDCC [facility] Last Admin: 09/09/18 18:00 Dose: 800 mg Vitamin B Complex/Vit C/Folic Acid (Nephro-Marina) 1 tab PO DAILY [facility] Last Admin: 09/09/18 10:18 Dose: 1 tab - Labs Labs: 09/09/18 06:15 09/09/18 06:15 PT 11.5 SECONDS (9.7-12.2) 09/07/18 22:01 INR 1.1 09/07/18 22:01 APTT 28 SECONDS (21-34) 09/07/18 22:01 - Constitutional Appears: Chronically Ill - Head Exam Head Exam: NORMOCEPHALIC - Eye Exam Eye Exam: Normal appearance Pupil Exam: NORMAL ACCOMODATION - ENT Exam ENT Exam: Normal Exam - Neck Exam Neck Exam: Normal Inspection - Respiratory Exam Respiratory Exam: Decreased Breath Sounds - Cardiovascular Exam Cardiovascular Exam: REGULAR RHYTHM - GI/Abdominal Exam GI & Abdominal Exam: Normal Bowel Sounds - Rectal Exam Rectal Exam: Deferred - Exam External exam: NORMAL EXTERNAL EXAM - Neurological Exam Neurological Exam: Oriented x3 - Psychiatric Exam Psychiatric exam: Depressed - Skin Skin Exam: Dry Assessment and Plan (1) ESRD needing dialysis Status: Acute (2) Poorly controlled diabetes mellitus Status: Acute (3) Acute on chronic diastolic heart failure Status: Acute (4) Degenerative arthritis Status: Acute
--- NOTE | 2018-09-09 22:49 | CP.PCM.PN ---
Subjective - Date & Time of Evaluation Date of Evaluation: 09/09/18 Time of Evaluation: 19:45 - Subjective Subjective: Patient has no more SOB. Blood glucose still elevated. Objective - Vital Signs/Intake and Output Vital Signs (last 24 hours): Temp Pulse Resp BP Pulse Ox 97.8 F 56 L 20 126/63 98 09/09/18 15:15 09/09/18 16:00 09/09/18 15:15 09/09/18 15:15 09/09/18 15:15 Intake and Output: 09/09/18 09/10/18 18:59 06:59 Intake Total 600 400 Balance 600 400 - Medications Medications: Current Medications Albuterol Sulfate (Albuterol 0.083% Inhal Luisa (2.5 Mg/3 Ml) Ud) 2.5 mg INH RQ6 [facility] Last Admin: 09/09/18 01:59 Dose: Not Given Aspirin (Aspirin Chewable) 81 mg PO DAILY [facility] Last Admin: 09/09/18 10:18 Dose: 81 mg Clopidogrel Bisulfate (Plavix) 75 mg PO DAILY [facility] Last Admin: 09/09/18 10:18 Dose: 75 mg Donepezil HCl (Aricept) 10 mg PO HS [facility] Last Admin: 09/09/18 21:35 Dose: 10 mg Furosemide (Lasix) 40 mg PO DAILY [facility] Last Admin: 09/09/18 10:18 Dose: 40 mg Heparin Sodium (Porcine) (Heparin) 5,000 units SC Q12H [facility] Last Admin: 09/09/18 21:36 Dose: 5,000 units Hydralazine HCl (Apresoline) 25 mg PO BID [facility] Last Admin: 09/09/18 18:00 Dose: 25 mg Hydralazine HCl (Apresoline) 10 mg IVP Q6H PRN PRN Reason: Systolic Blood Pressure Insulin Aspart (Novolog) 0 unit SC ACHS [facility] Last Admin: 09/09/18 21:36 Dose: 4 units Insulin Aspart (Novolog) 12 unit SC AC [facility] Insulin Glargine (Lantus) 30 unit SC HS [facility] Last Admin: 09/09/18 21:36 Dose: 30 units Montelukast Sodium (Singulair) 10 mg PO HS [facility] Last Admin: 09/09/18 21:35 Dose: 10 mg Rosuvastatin Calcium (Crestor) 5 mg PO HS [facility] Last Admin: 09/09/18 21:36 Dose: 5 mg Sevelamer Carbonate (Renvela) 800 mg PO TIDCC [facility] Last Admin: 09/09/18 18:00 Dose: 800 mg Vitamin B Complex/Vit C/Folic Acid (Nephro-Marina) 1 tab PO DAILY [facility] Last Admin: 09/09/18 10:18 Dose: 1 tab - Labs Labs: 09/09/18 06:15 09/09/18 06:15 PT 11.5 SECONDS (9.7-12.2) 09/07/18 22:01 INR 1.1 09/07/18 22:01 APTT 28 SECONDS (21-34) 09/07/18 22:01 - Constitutional Appears: Well, No Acute Distress, Chronically Ill - Head Exam Head Exam: NORMAL INSPECTION - Eye Exam Eye Exam: Normal appearance Pupil Exam: NORMAL ACCOMODATION - ENT Exam ENT Exam: Normal Exam - Neck Exam Neck Exam: Normal Inspection - Respiratory Exam Respiratory Exam: Clear to Ausculation Bilateral, NORMAL BREATHING PATTERN - Cardiovascular Exam Cardiovascular Exam: REGULAR RHYTHM - GI/Abdominal Exam GI & Abdominal Exam: Soft, Normal Bowel Sounds - Rectal Exam Rectal Exam: Deferred - Extremities Exam Extremities Exam: Normal Inspection - Back Exam Back Exam: NORMAL INSPECTION - Neurological Exam Neurological Exam: Alert, Awake, Oriented x3 - Psychiatric Exam Psychiatric exam: Anxious - Skin Skin Exam: Dry, Intact Assessment and Plan (1) Acute on chronic diastolic CHF (congestive heart failure) Status: Resolved (2) Hyperglycemia Assessment & Plan: Insulin as per Top Collar Baster. Status: Acute (3) ESRD needing dialysis Assessment & Plan: As per Electric Switch Repairer. Status: Acute
--- NOTE | 2018-09-09 22:56 | PN ---
DATE: 09/09/2018 LOCATION: Room 664. SUBJECTIVE: This is an 82-year-old female with recent uncontrolled type 2 insulin-requiring diabetes with supervening marked hyperglycemic accelerations overnight as her basal insulin was withheld by the nursing staff last night as noted. Her glucose values today were actually 368 mg/dL. The subsequent glucose valves have ranged from 403 to 460 mg/dL at lunch time today as noted. LABORATORY DATA: Her hemoglobin A1c is 13.8%, which is quite elevated and indicative of suboptimal metabolic control with diabetic condition even prior to this admission. Her chemistries showed a BUN of 35, sodium 132, potassium 3.9, chloride 94, CO2 of 30, glucose 402 and creatinine 3.3. ASSESSMENT: This is an 82-year-old female with uncontrolled and decompensated type 2 insulin-requiring diabetes with marked hyperglycemic accelerations related to the withholding of the basal insulin regimen by the nursing staff last night as noted. Moreover, she has diabetic microvascular complications for retinopathy, polyneuropathy and nephropathy with end-stage renal disease and dialysis dependence. She also has diabetic macrovascular complications of coronary artery disease and peripheral arterial disease and vasculopathy. PLAN OF MANAGEMENT: We will modify once again her basal and bolus insulin regimen and increase the NovoLog to 20 units subcu t.i.d. before meals to start at lunch time today as ordered. We will continue the basal insulin given as 40 units of Lantus given at bedtime to start tonight. Very specific instructions were given to the nursing staff to not hold ever the bedtime insulin even with normal glucose values at bedtime metabolic goal is to optimize her glycemic control to achieve near normal glycemic profile as noted. We will obtain serial chemistries and supplement accordingly as needed. We will follow. Bella Gold MD
[2018-09-10] MEDS: Albuterol 0.083% Inhal Sol (2.5 mg/3 mL) UD INH SCH ×3 (01:10→14:14)
[2018-09-10] MEDS ORDERED: (Novolog) Insulin Aspart, Recombinant 100 u/ml 10 ml vial SC SCH ×2 (07:30→16:30)
[2018-09-10 10:22] VITALS: RESP 20
[2018-09-10] MEDS: Multivitamin Vitamin B Complex (Nephro-Vite) Tab PO SCH (10:50)
[2018-09-10] MEDS: (Novolog) Insulin Aspart, Recombinant 100 u/ml 10 ml vial SC SCH (10:54)
[2018-09-10 12:35] VITALS: TEMP 97.5; O2SAT 100
[2018-09-10 12:39] VITALS: BP 128/68; PULSE 63
--- NOTE | 2018-09-10 16:43 | CP.PCM.PN ---
Subjective - Date & Time of Evaluation Date of Evaluation: 09/10/18 Time of Evaluation: 14:00 - Subjective Subjective: Patient seen today , after HD denies any chest pain, sob, abdominal pain vss - stable BS - controlled Objective - Vital Signs/Intake and Output Vital Signs (last 24 hours): Temp Pulse Resp BP Pulse Ox 97.5 F L 69 20 109/70 100 09/10/18 12:25 09/10/18 12:25 09/10/18 12:25 09/10/18 12:25 09/10/18 12:25 Intake and Output: 09/10/18 09/10/18 06:59 18:59 Intake Total 400 Balance 400 - Labs Labs: 09/09/18 06:15 09/09/18 06:15 PT 11.5 SECONDS (9.7-12.2) 09/07/18 22:01 INR 1.1 09/07/18 22:01 APTT 28 SECONDS (21-34) 09/07/18 22:01 Assessment and Plan - Assessment and Plan (Free Text) Assessment: A/P 82 YR OLD FEMAL E with pmhx of CHF, COPD , Dementia, Depression, Diabetes (, HTN, Hypercholesterolemia, Migraine, End Stage Renal Disease, on HD admitted with sob, and hyperglycemia BS stable with new insulin regimen PRAVEENA Estrada spoke to xavier Gonzales the needs for care patient at home and safe administration of insulin at home ( pt re amitted x3 with hyperglycemia) as per CM xavier Gonzales states someone will be home to administer insulin D/w Dr. rodriguez, cleared fro discharge home today Discharge plan discussed with patietn and daughter at bedside , who understands an d agrees with plan . Patient daughter informed medication e prescribed to pharmacy . RX e prescribed to pharmacy for strips and insulin spoke to pharmacist , states will deliver medication to her home by 6 pm .
--- NOTE | 2018-09-10 16:51 | PCM.HF ---
Heart Failure Core Measure - Heart Failure Ejection Fraction: 40 % or Greater ADORE Inhibitor Prescribed: No Contraindication/Reason for not providing: ESRD Beta-Soraya Prescribed: None Contraindication/Reason for not providing: COPD Angiotensin II Receptor Soraya Prescribed: No Contraindication/Reason for not providing: ESRD AnticoagulationTherapy for Atrial Fibrillation/Atrialflutter: No Contraindication/Reason for not providing: NO HX OF AFIB Aldosterone Antagonist Prescribed: No Contraindication/Reason for not providing: ESRD Hydralazine Nitrate Prescribed: Yes Implantable Cardioverter Defibrillator Therapy: No Contraindication/Reason for not providing: EF>45 Cardiac Resynchronization Therapy Prescribed: No Contraindication/Reason for not providing: EF>45 - Follow up Will be discharged to: Home Follow Up Date (must be within 7 days from discharge): 09/15/18 Follow Up Time: 12:00
--- NOTE | 2018-09-10 19:22 | PN ---
DATE: 09/10/2018 ENDOCRINOLOGY FOLLOWUP NOTE LOCATION: Room 664. SUBJECTIVE: This is an 82-year-old female with recent uncontrolled type 2 insulin-requiring diabetes with extremes of glycemic fluctuations and now being followed closely for metabolic management. Her glycemic levels are fluctuating as noted overnight with glucose values ranging from 283 to 369 mg/dL. It was 500 at bedtime last night as her NovoLog was actually not given as the phone call for advice on the dosing regimen was made only after 8 p.m. last night. LABORATORY DATA: Her chemistries today show a BUN of 35, sodium 132, potassium 3.9, chloride 94, CO2 30, glucose 402, and creatinine 3.3. Her A1c is elevated at 13.8% as noted. ASSESSMENT AND PLAN: So at this time, we will continue the modified basal and bolus insulin regimen as given with NovoLog given as 14 units t.i.d. before meals as ordered. We will also continue the basal insulin given as Lantus at the higher dosing of 40 units at bedtime, to start tonight. We will continue the low-dose correction scale using NovoLog insulin as given. We will obtain serial chemistries and supplement accordingly as needed. We will follow. Bella Gold MD
[2018-09-10] MEDS ORDERED: (Lantus) Insulin Glargine, Recombinant SC SCH (22:00)
--- NOTE | 2018-09-10 22:35 | CP.PCM.DIS ---
Provider - Provider Date of Admission: 09/09/18 15:37 Attending physician: Valdez Mccracken MD Consults: 09/07/18 23:37 Physician Consult Routine Comment: Consulting Provider: Bella Godl Consulting Physician: Bella Gold Reason for Consult: uncontrolled blood sugar 09/07/18 23:46 Physician Consult Routine Comment: Consulting Provider: Efren Mei Consulting Physician: Efren Mei Reason for Consult: CHF 09/08/18 08:05 Nursing Referral for Wound Care Routine Comment: Physician Instructions: Reason For Exam: HD 09/08/18 10:18 Physician Consult Routine Comment: Consulting Provider: Kanika Diaz Consulting Physician: Kanika Diaz Reason for Consult: ESRD/HD Time Spent in preparation of Discharge (in minutes): 24 Diagnosis - Discharge Diagnosis (1) ESRD needing dialysis Status: Acute (2) Poorly controlled diabetes mellitus Status: Acute (3) Acute on chronic diastolic heart failure Status: Acute Priority: Medium (4) Degenerative arthritis Status: Acute Priority: Medium Hospital Course - Lab Results Lab Results: Micro Results 09/07/18 21:32 Blood Blood Culture - Preliminary NO GROWTH AFTER 3 DAYS 09/07/18 21:32 Blood Blood Culture - Preliminary NO GROWTH AFTER 3 DAYS Most Recent Lab Values WBC 6.3 K/uL (4.8-10.8) 09/09/18 06:15 RBC 3.96 Mil/uL (3.80-5.20) 09/09/18 06:15 Hgb 10.8 g/dL (11.0-16.0) L 09/09/18 06:15 Hct 32.7 % (34.0-47.0) L 09/09/18 06:15 MCV 82.7 fL (81.0-99.0) 09/09/18 06:15 MCH 27.3 pg (27.0-31.0) 09/09/18 06:15 MCHC 33.1 g/dL (33.0-37.0) 09/09/18 06:15 RDW 16.0 % (11.5-14.5) H 09/09/18 06:15 Plt Count 224 K/uL (130-400) 09/09/18 06:15 MPV 10.0 fL (7.2-11.7) 09/09/18 06:15 Neut % (Auto) 58.6 % (50.0-75.0) 09/09/18 06:15 Lymph % (Auto) 25.8 % (20.0-40.0) 09/09/18 06:15 [place] % (Auto) 12.2 % (0.0-10.0) H 09/09/18 06:15 Eos % (Auto) 2.8 % (0.0-4.0) 09/09/18 06:15 Baso % (Auto) 0.6 % (0.0-2.0) 09/09/18 06:15 Neut # (Auto) 3.7 K/uL (1.8-7.0) 09/09/18 06:15 Lymph # (Auto) 1.6 K/uL (1.0-4.3) 09/09/18 06:15 [place] # (Auto) 0.8 K/uL (0.0-0.8) 09/09/18 06:15 Eos # (Auto) 0.2 K/uL (0.0-0.7) 09/09/18 06:15 Baso # (Auto) 0.0 K/uL (0.0-0.2) 09/09/18 06:15 PT 11.5 SECONDS (9.7-12.2) 09/07/18 22:01 INR 1.1 09/07/18 22:01 APTT 28 SECONDS (21-34) 09/07/18 22:01 pO2 40 mm/Hg (30-55) 09/07/18 21:47 VBG pH 7.34 (7.32-7.43) 09/07/18 21:47 VBG pCO2 43 mmHg (40-60) 09/07/18 21:47 VBG HCO3 22.2 mmol/L 09/07/18 21:47 VBG Total CO2 24.5 mmol/L (22-28) 09/07/18 21:47 VBG O2 Sat (Calc) 77.8 % (40-65) H 09/07/18 21:47 VBG Base Excess -2.6 mmol/L (0.0-2.0) L 09/07/18 21:47 VBG Potassium 5.0 mmol/L (3.6-5.2) 09/07/18 21:47 Sodium 129.0 mmol/l (132-148) L 09/07/18 21:47 Chloride 93.0 mmol/L (98-107) L 09/07/18 21:47 Glucose 732 mg/dl (65-105) H* D 09/07/18 21:47 Lactate 2.6 mmol/L (0.7-2.1) H 09/07/18 21:47 Crit Value Called To graciela Dunn 09/07/18 21:47 Crit Value Called By Sharee mtaa rrt 09/07/18 21:47 Crit Value Read Back Y 09/07/18 21:47 Blood Gas Notified Time 214909/07/18 21:47 Sodium 132 mmol/L (132-148) 09/09/18 06:15 Potassium 3.9 mmol/L (3.6-5.2) 09/09/18 06:15 Chloride 94 mmol/L (98-107) L 09/09/18 06:15 Carbon Dioxide 30 mmol/L (22-30) 09/09/18 06:15 Anion Gap 13 (10-20) 09/09/18 06:15 BUN 35 mg/dL (7-17) H 09/09/18 06:15 Creatinine 3.3 mg/dL (0.7-1.2) H 09/09/18 06:15 Est GFR ( Amer) 16 09/09/18 06:15 Est GFR (Non-Af Amer) 13 09/09/18 06:15 POC Glucose (mg/dL) 142 mg/dL (65-110) H 09/10/18 11:31 Random Glucose 402 mg/dL (65-105) H* D 09/09/18 06:15 Hemoglobin A1c 13.8 % (4.2-6.5) H 09/09/18 06:15 Calcium 9.1 mg/dl (8.6-10.4) 09/09/18 06:15 Phosphorus 2.9 mg/dL (2.5-4.5) 09/09/18 06:15 Total Bilirubin 0.5 mg/dL (0.2-1.3) 09/09/18 06:15 AST 25 U/L (14-36) 09/09/18 06:15 ALT 27 U/L (9-52) 09/09/18 06:15 Alkaline Phosphatase 158 U/L (38-126) H D 09/09/18 06:15 NT-Pro-B Natriuret Pep 46534 pg/mL (0-900) H 09/07/18 21:32 Total Protein 6.6 g/dL (6.3-8.3) 09/09/18 06:15 Albumin 3.6 g/dL (3.5-5.0) 09/09/18 06:15 Globulin 2.9 gm/dL (2.2-3.9) 09/09/18 06:15 Albumin/Globulin Ratio 1.3 (1.0-2.1) 09/09/18 06:15 Triglycerides 151 mg/dL (0-149) H D 09/09/18 06:15 Cholesterol 129 mg/dL (0-199) 09/09/18 06:15 LDL Cholesterol Direct 54 mg/dL (0-129) 09/09/18 06:15 HDL Cholesterol 64 mg/dL (30-70) 09/09/18 06:15 TSH 3rd Generation 0.19 mIU/L (0.46-4.68) L 09/09/18 06:15 Venous Blood Potassium 5.0 mmol/L (3.6-5.2) 09/07/18 21:47 Discharge Exam - Head Exam Head Exam: NORMAL INSPECTION - Eye Exam Eye Exam: Normal appearance Pupil Exam: NORMAL ACCOMODATION - ENT Exam ENT Exam: Normal Exam - Neck Exam Neck exam: Normal Inspection - Respiratory Exam Respiratory Exam: Decreased Breath Sounds - Cardiovascular Exam Cardiovascular Exam: REGULAR RHYTHM - GI/Abdominal Exam GI & Abdominal Exam: Normal Bowel Sounds - Rectal Exam Rectal Exam: Deferred - Exam External exam: NORMAL EXTERNAL EXAM - Back Exam Back exam: NORMAL INSPECTION - Neurological Exam Neurological exam: Oriented x3 - Psychiatric Exam Psychiatric exam: Depressed - Skin Skin Exam: Dry Discharge Plan - Discharge Medications Prescriptions: Blood Sugar Diagnostic [Accu-Chek Guide Test Strip] 1 each MC TID 30 Days strip - Follow Up Plan Condition: FAIR Disposition: HOME/ ROUTINE Instructions: Diabetes Exchange Diet, Dialysis Diet , Heart Failure, Adult (DC) , Diabetes Diet , End Stage Kidney Disease (DC) Additional Instructions: Please follow up with Dr. Mccracken office in 1 week Please continue medication as per med. rec please check your blood sugar before meals and before insulin injection Please continue HD as scheduled MEDICATION AND STRIPS SENT TO PHARMACY AND THEY WILL DELIVER TO YOU TONIGHT FROM YOUR PHARMACY Referrals: Valdez Mccracken MD [Staff Provider] -
--- NOTE | 2018-09-10 23:47 | CP.PCM.PN ---
Subjective - Date & Time of Evaluation Date of Evaluation: 09/10/18 Time of Evaluation: 13:00 - Subjective Subjective: SEEN ON RENAL F/U AROUND 1.00 PM SEEN IN BED EATING HER LUNCH FEELS BETTER .. NO C/P NO PALP NO SOB JUST COMPLETED HER HD Objective - Vital Signs/Intake and Output Vital Signs (last 24 hours): Temp Pulse Resp BP Pulse Ox 97.5 F L 69 20 109/70 100 09/10/18 12:25 09/10/18 12:25 09/10/18 12:25 09/10/18 12:25 09/10/18 12:25 - Labs Labs: 09/09/18 06:15 09/09/18 06:15 PT 11.5 SECONDS (9.7-12.2) 09/07/18 22:01 INR 1.1 09/07/18 22:01 APTT 28 SECONDS (21-34) 09/07/18 22:01 Assessment and Plan - Assessment and Plan (Free Text) Assessment: ESRD ON HD M W F .. RECIEVED HER HD TODAY ANEMIA OF CKD .. ON EPO FLIUD OVER LOAD .. RECIEVED STAT HD MMP P : PT HAD HER HD MON AND TODAY WED PT IS CLEARED FOR D/C FROM RENAL STAND [facility]INT
== END 2018-09-10 16:00 | disposition home or self-care (01) | DRG 291 ==
LOC: C.ER 19:26 → UNDOADMOB 22:23 → OBSVTOIN 22:23 → C.9E 22:23 → INTOOBSV 22:23 → C.9E 09-08 06:48 → C.6T 09-08 06:48 → OBSVTOIN 09-09 15:37 → C.6T 09-09 15:37 → C.9E 09-09 15:37
PROVIDERS: ADMIT Internal Medicine; ATTEND Internal Medicine
PROC: 5A1D70Z Performance of Urinary Filtration, Intermittent, Less than 6 Hours Per Day (ICD-10-PCS; principal; 2018-09-10)
DX: I13.2 Hypertensive heart and chronic kidney disease with heart failure and with stage 5 chronic kidney disease, or end stage renal disease (principal); I50.33 Acute on chronic diastolic (congestive) heart failure; N18.6 End stage renal disease; J44.1 Chronic obstructive pulmonary disease with (acute) exacerbation; E87.1 Hypo-osmolality and hyponatremia; M19.90 Unspecified osteoarthritis, unspecified site; Z79.4 Long term (current) use of insulin; Z99.2 Dependence on renal dialysis; H54.7 Unspecified visual loss; F41.1 Generalized anxiety disorder; E87.5 Hyperkalemia; E78.5 Hyperlipidemia, unspecified; E11.51 Type 2 diabetes mellitus with diabetic peripheral angiopathy without gangrene; E11.65 Type 2 diabetes mellitus with hyperglycemia; E11.319 Type 2 diabetes mellitus with unspecified diabetic retinopathy without macular edema; E11.21 Type 2 diabetes mellitus with diabetic nephropathy; D63.1 Anemia in chronic kidney disease

== ENCOUNTER 2018-09-19 00:40 | Inpatient (IN) | payer OTHER ==
[2018-09-19 00:40] VITALS: BMI 30.2
--- NOTE | 2018-09-19 01:08 | C.PDOC ---
History Of Present Illness 82 year old female presents to the ED c/o SOB. Patient goes to dialysis on Saturday, Saturday and Saturday. Patient reports he has been getting progressive SOB. Patient was recently admitted 2 weeks ago for similar complaints. Patient s peaking in 3-4 word sentences. Patient denies fever, chills, nausea, vomit, dizziness, headache, CP, palpitations, weakness, numbness. Time Seen by Provider: 09/19/18 01:07 Chief Complaint (Nursing): Shortness Of Breath History Per: Patient History/Exam Limitations: no limitations Onset/Duration Of Symptoms: Days Current Symptoms Are (Timing): Still Present Initiating Event: Upper Respiratory Illness Quality: "Pain" Exacerbating Factor(s): Coughing Current Respiratory Medications: See Home Med List Recent travel outside of the [place]: No Additional History Per: Patient Past Medical History Reviewed: Historical Data, Nursing Documentation, Vital Signs Vital Signs: Last Vital Signs Temp 98.9 F 09/19/18 00:52 Pulse 94 H 09/19/18 00:52 Resp 22 09/19/18 00:52 BP 112/79 09/19/18 00:52 Pulse Ox 98 09/19/18 00:52 - Medical History PMH: Anxiety, Arthritis, Asthma, Bronchitis, Cardia Arrhythmia, CHF, COPD (Emphysema,), Dementia, Depression, Diabetes (type 2), Emphysema, Fractures, HTN, Hypercholesterolemia, Migraine, End Stage Renal Disease, Chronic Kidney Disease, TIA Surgical History: No Surg Hx - [facility] (09/09/18) ASSISTANCE WITH RESPIRATORY VENTILATION, 24-96 HRS, CPAP (11/01/16) INSERTION OF INFUSION DEV INTO INF VENA CAVA, PERC APPROACH (10/06/15) PERFORMANCE OF URINARY FILTRATION, MULTIPLE (12/24/16) PERFORMANCE OF URINARY FILTRATION, SINGLE (11/01/16) Family History: States: Unknown Family Hx - Social History Hx Tobacco Use: No Hx Alcohol Use: No Hx Substance Use: No - Immunization History Hx Tetanus Toxoid Vaccination: Yes Hx Influenza Vaccination: Yes (06/2015) Hx Pneumococcal Vaccination: Yes (2014) Review Of Systems Constitutional: Negative for: Fever, Chills Cardiovascular: Negative for: Chest Pain Respiratory: Positive for: Shortness of Breath, Wheezing. Negative for: Sputum Gastrointestinal: Negative for: Nausea, Vomiting, Abdominal Pain Genitourinary: Negative for: Dysuria, Hematuria Skin: Negative for: Rash Neurological: Negative for: Weakness, Numbness, Headache, Dizziness Physical Exam - Physical Exam Appears: Non-toxic Skin: Warm, Dry Head: Normacephalic Eye(s): bilateral: Normal Inspection Oral Mucosa: Moist Neck: Supple Chest: Symmetrical Cardiovascular: Rhythm Regular Respiratory: Decreased Breath Sounds, Rales (bases), Rhonchi (scattered), Wheezing (few) Gastrointestinal/Abdominal: Soft, No Tenderness, No Guarding, No Rebound Back: Normal Inspection Extremity: No Pedal Edema, Capillary Refill (< 2 seconds) Extremity: Right: Other (graft with good thrill and bruit), Bilateral: Atraumatic, Normal Color And Temperature, Normal ROM Pulses: Left Dorsalis Pedis: Normal, Right Dorsalis Pedis: Normal Neurological/Psych: Oriented x3, Normal Speech, Normal Cognition Gait: Unable To Assess ED Course And Treatment - Laboratory Results Result Diagrams: 09/19/18 01:27 09/19/18 01:27 ECG: Interpreted By Me, Viewed By Me ECG Rhythm: Sinus Rhythm (94), Nonspecific Changes (lad) O2 Sat by Pulse Oximetry: 98 (ON RA) Pulse Ox Interpretation: Normal - Radiology CXR: Interpreted by Me, Viewed By Me Progress Note: Plan: - EKG. - Labs. - CXR. - Duoneb Disposition Discussed With DrErwin: Valdez Mccracken Comment: accepted the pt onhis service and took over the care at 2:40 AM Doctor Will See Patient In The: Hospital Counseled Patient/Family Regarding: Studies Performed, Diagnosis, Need For Followup - Disposition Disposition: HOSPITALIZED Disposition Time: 01:07 Condition: GUARDED Forms: [facility] (Finnish) - POA Present On Arrival: Poor Glycemic Control - Clinical Impression Clinical Impression: Chronic congestive heart failure, Poorly controlled diabetes mellitus, ESRD needing dialysis, Dyspnea - Scribe Statement The provider has reviewed the documentation as recorded by the Scribe Seng Hall All medical record entries made by the Scribe were at my direction and personally dictated by me. I have reviewed the chart and agree that the record accurately reflects my personal performance of the history, physical exam, medical decision making, and the department course for this patient. I have also personally directed, reviewed, and agree with the discharge instructions and dis position. Decision To Admit - Pt Status Changed To: Hospital Disposition Of: Inpatient - Admit Certification Admit to Inpatient:: After my assessment, the patient will require hospita lization for at least two midnights. This is because of the severity of symptoms shown, intensity of services needed, and/or the medical risk in this patient being treated as an outpatient. - InPatient: Physician Admission Certification: I certify that this patient requires 2 or more midnights of care for the following reason:: After my assessment, the patie nt will require hospitalization for at least two midnights. This is because of the severity of symptoms shown, intensity of services needed, and/or the medical risk in this patient being treated as an outpatient. - . Bed Request Type: Telemetry Admitting Physician: Valdez Mccracken Patient Diagnosis: Chronic congestive heart failure, Poorly controlled diabetes mellitus, ESRD needing dialysis, Dyspnea
[2018-09-19 01:30] LABS: BASO # 0.1 K/uL (0.0-0.2); BASO % 0.9 % (0.0-2.0); EOS % 0.3 % (0.0-4.0); HEMOGLOBIN 10.5 g/dL (11.0-16.0); LYMPH # 0.8 K/uL (1.0-4.3); LYMPH % 9.1 % (20.0-40.0); MEAN CELL VOLUME 86.2 fL (81.0-99.0); MEAN CORPUSCULAR HEMOGLOBIN 27.3 pg (27.0-31.0); MEAN CORPUSCULAR HGB CONC 31.7 g/dL (33.0-37.0); MONO # 0.6 K/uL (0.0-0.8); MONO % 7.6 % (0.0-10.0); NEUT # 6.9 K/uL (1.8-7.0); NEUT % 82.1 % (50.0-75.0); PLATELET COUNT 225 K/uL (130-400); RBC 3.85 Mil/uL (3.80-5.20); RED CELL DISTRIBUTION WIDTH 17.2 % (11.5-14.5); WHITE BLOOD COUNT 8.4 K/uL (4.8-10.8)
[2018-09-19] MEDS ORDERED: MethylPREDNISolone 40 mg Vial IVP STA (01:37)
[2018-09-19] MEDS: Albuterol-Ipratrop 3 mg / 0.5 (3 ml) UD IH SCH (01:39)
[2018-09-19 01:56] LABS: PROTHROMBIN TIME 10.9 SECONDS (9.7-12.2)
[2018-09-19 02:01] LABS: ANISOCYTOSIS SLIGHT; BASOPHIL 1 % (0-2); LYMPHOCYTE 8 % (20-40); MONOCYTE 8 % (0-10); NEUTROPHIL 83 % (50-75); PLATELET ESTIMATE NORMAL (NORMAL); POIKILOCYTOSIS SLIGHT; TOTAL CELLS COUNTED 100
[2018-09-19 02:23] LABS: ALB/GLOB RATIO 1.4 (1.0-2.1); CALCIUM 9.4 mg/dl (8.6-10.4)
[2018-09-19] MEDS ORDERED: (Novolin R) Insulin Human Regular 100 units/ml vial IVP STA (02:26)
[2018-09-19] MEDS ORDERED: (Novolin R) Insulin Human Regular 100 units/ml vial IVP ONE (03:23)
[2018-09-19] MEDS ORDERED: (Novolog) Insulin Aspart, Recombinant 100 u/ml 10 ml vial SC SCH (07:30)
[2018-09-19] MEDS: Albuterol-Ipratrop 3 mg / 0.5 (3 ml) UD INH SCH ×4 (07:35→19:37)
[2018-09-19] MEDS: (Novolog) Insulin Aspart, Recombinant 100 u/ml 10 ml vial SC SCH ×5 (08:59→22:22)
[2018-09-19] MEDS ORDERED: Enoxaparin 40 mg Syringe SC SCH (10:00)
--- NOTE | 2018-09-19 11:12 | RAD ---
Date of service: 09/19/2018 HISTORY: r/o infiltrate bed 12 COMPARISON: 09/07/2018 FINDINGS: LUNGS: The lungs are well inflated and clear. PLEURA: No pleural effusions or pneumothorax. CARDIOVASCULAR: There is moderate cardiomegaly. No aortic atherosclerotic calcification present. OSSEOUS STRUCTURES: Within normal limits for the patient's age. 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 OTHER FINDINGS: There is stable appearance of right subclavian endovascular stent graft. IMPRESSION: No active pulmonary disease.
[2018-09-19] MEDS: Multivitamin Vitamin B Complex (Nephro-Vite) Tab PO SCH (11:43)
--- NOTE | 2018-09-19 15:53 | CP.PCM.CON ---
History of Present Illness - History of Present Illness History of Present Illness: REASONS FOR CONSULT : ESRD IN NEED FOR URGENT HD WITH BNP > 18.000 HYPER KALEMIA .. K 6.1 SOB .. P EDEMA . F OVERLOAD . CKF .. IN NEED FOR URGENT HD PT WAS SEEN WHILE ON HD WELL KNOWN TO ME WITH MMP AND FREQEUNT ADMISIONS History Of Present Illness 82 year old female presents to the ED c/o SOB. Patient goes to dialysis on Saturday, Saturday and Saturday. Patient reports he has been getting progressive SOB. Patient was recently admitted 2 weeks ago for similar complaints. Patient speaking in 3-4 word sentences. Patient denies fever, chills, nausea, vomit, dizziness, headache, CP, palpitations, weakness, numbness. Time Seen by Provider: 09/19/18 01:07 Chief Complaint (Nursing): Shortness Of Breath History Per: Patient History/Exam Limitations: no limitations Onset/Duration Of Symptoms: Days Current Symptoms Are (Timing): Still Present Initiating Event: Upper Respiratory Illness Quality: "Pain" Exacerbating Factor(s): Coughing Current Respiratory Medications: See Home Med List Recent travel outside of the [place]: No Additional History Per: Patient Past Medical History Reviewed: Historical Data, Nursing Documentation, Vital Signs Vital Signs: Last Vital Signs Temp 98.9 F 09/19/18 00:52 Pulse 94 H 09/19/18 00:52 Resp 22 09/19/18 00:52 BP 112/79 09/19/18 00:52 Pulse Ox 98 09/19/18 00:52 - Medical History PMH: Anxiety, Arthritis, Asthma, Bronchitis, Cardia Arrhythmia, CHF, COPD (Emphysema,), Dementia, Depression, Diabetes (type 2), Emphysema, Fractures, HTN, Hypercholesterolemia, Migraine, End Stage Renal Disease, Chronic Kidney Disease, TIA Surgical History: No Surg Hx - [facility] Procedures (09/09/18) ASSISTANCE WITH RESPIRATORY VENTILATION, 24-96 HRS, CPAP (11/01/16) INSERTION OF INFUSION DEV INTO INF VENA CAVA, PERC APPROACH (10/06/15) PERFORMANCE OF URINARY FILTRATION, MULTIPLE (12/24/16) PERFORMANCE OF URINARY FILTRATION, SINGLE (11/01/16) Family History: States: Unknown Family Hx - Social History Hx Tobacco Use: No Hx Alcohol Use: No Hx Substance Use: No - Immunization History Hx Tetanus Toxoid Vaccination: Yes Hx Influenza Vaccination: Yes (06/2015) Past Patient History - Infectious Disease Hx of Infectious Diseases: None - Tetanus Immunizations Tetanus Immunization: Unknown, Up to Date - Past Medical History & Family History Past Medical History?: Yes - Past Social History Smoking Status: Never Smoked - CARDIAC Hx Cardia Arrhythmia: Yes Hx Congestive Heart Failure: Yes Hx Hypercholesterolemia: Yes Hx Hypertension: Yes - PULMONARY Hx Asthma: Yes Hx Bronchitis: Yes Hx Chronic Obstructive Pulmonary Disease (COPD): Yes (Emphysema,) Hx Emphysema: Yes - NEUROLOGICAL Hx Dementia: Yes Hx Migraine: Yes Hx Transient Ischemic Attacks (TIA): Yes - HEENT Hx HEENT Problems: Yes Hx Blind: Yes (Left eye.) - RENAL Hx Chronic Kidney Disease: Yes - ENDOCRINE/METABOLIC Hx Endocrine Disorders: Yes Hx Diabetes Mellitus Type 2: Yes - HEMATOLOGICAL/ONCOLOGICAL Hx Blood Disorders: No - INTEGUMENTARY Hx Dermatological Problems: Yes Hx Cellulitis: Yes Hx Eczema: Yes - MUSCULOSKELETAL/RHEUMATOLOGICAL Hx Arthritis: Yes Hx Falls: No Hx Fractures: Yes - GASTROINTESTINAL Hx Gastrointestinal Disorders: Yes Hx Gastroesophageal Reflux: Yes Hx Hemorrhoids: Yes - GENITOURINARY/GYNECOLOGICAL Hx Genitourinary Disorders: Yes Hx Urinary Tract Infection: Yes - PSYCHIATRIC Hx Anxiety: Yes Hx Depression: Yes Hx Substance Use: No - SURGICAL HISTORY Hx Surgeries: Yes Hx Arteriovenous Shunt: Yes (right arm) - ANESTHESIA Hx Anesthesia: Yes Hx Anesthesia Reactions: No Hx Malignant Hyperthermia: No Meds Allergies/Adverse Reactions: Allergies Allergy/AdvReac Type Severity Reaction Status Date / Time No Known Allergies Allergy Verified 09/19/18 00:59 - Medications Medications: Current Medications Albuterol Sulfate (Albuterol 0.083% Inhal Luisa (2.5 Mg/3 Ml) Ud) 2.5 mg INH RQ6 [facility] Albuterol/Ipratropium (Duoneb 3 Mg/0.5 Mg (3 Ml) Ud) 3 ml INH RQ4 [facility] Stop: 09/19/18 20:01 Last Admin: 09/19/18 11:18 Dose: Not Given Aspirin (Aspirin Chewable) 81 mg PO DAILY [facility] Last Admin: 09/19/18 11:42 Dose: Not Given Clopidogrel Bisulfate (Plavix) 75 mg PO DAILY [facility] Last Admin: 09/19/18 11:43 Dose: Not Given Donepezil HCl (Aricept) 10 mg PO [facility] Furosemide (Lasix) 20 mg PO DAILY [facility] Last Admin: 09/19/18 11:42 Dose: Not Given Heparin Sodium (Porcine) (Heparin) 5,000 units SC Q8 [facility] Hydralazine HCl (Apresoline) 25 mg PO BID [facility] Last Admin: 09/19/18 11:42 Dose: Not Given Insulin Aspart (Novolog) 0 unit SC ACHS [facility]; Protocol Last Admin: 09/19/18 14:25 Dose: 5 units Insulin Glargine (Lantus) 40 unit SC HS [facility] Montelukast Sodium (Singulair) 10 mg PO DAILY [facility] Last Admin: 09/19/18 11:43 Dose: Not Given Rosuvastatin Calcium (Crestor) 5 mg PO HS [facility] Sevelamer Carbonate (Renvela) 800 mg PO TIDCC [facility] Last Admin: 09/19/18 12:06 Dose: Not Given Vitamin B Complex/Vit C/Folic Acid (Nephro-Marina) 1 tab PO DAILY [facility] Last Admin: 09/19/18 11:43 Dose: Not Given Results - Vital Signs Recent Vital Signs: Last Vital Signs Temp 97.5 F L 09/19/18 12:40 Pulse 76 09/19/18 12:40 Resp 18 09/19/18 12:40 BP 152/74 H 09/19/18 12:40 Pulse Ox 98 09/19/18 12:40 - Labs Result Diagrams: 09/19/18 01:27 09/19/18 01:27 Labs: Laboratory Results - last 24 hr 09/19/18 09/19/18 09/19/18 00:50 00:53 01:27 WBC 8.4 RBC 3.85 Hgb 10.5 L Hct 33.1 L MCV 86.2 D MCH 27.3 MCHC 31.7 L RDW 17.2 H Plt Count 225 MPV 10.0 Neut % (Auto) 82.1 H Lymph % (Auto) 9.1 L [place] % (Auto) 7.6 Eos % (Auto) 0.3 Baso % (Auto) 0.9 Neut # (Auto) 6.9 Lymph # (Auto) 0.8 L [place] # (Auto) 0.6 Eos # (Auto) 0.0 Baso # (Auto) 0.1 Neutrophils % (Manual) 83 H Lymphocytes % (Manual) 8 L Monocytes % (Manual) 8 Basophils % (Manual) 1 Platelet Estimate Normal Poikilocytosis (manual Slight Anisocytosis (manual) Slight PT INR APTT Sodium Potassium Chloride Carbon Dioxide Anion Gap BUN Creatinine Est GFR ( Amer) Est GFR (Non-Af Amer) POC Glucose (mg/dL) > 500 H* 498 H* Random Glucose Calcium Magnesium Total Bilirubin AST ALT Alkaline Phosphatase NT-Pro-B Natriuret Pep Total Protein Albumin Globulin Albumin/Globulin Ratio 09/19/18 09/19/18 09/19/18 01:27 01:27 03:17 WBC RBC Hgb Hct MCV MCH MCHC RDW Plt Count MPV Neut % (Auto) Lymph % (Auto) [place] % (Auto) Eos % (Auto) Baso % (Auto) Neut # (Auto) Lymph # (Auto) [place] # (Auto) Eos # (Auto) Baso # (Auto) Neutrophils % (Manual) Lymphocytes % (Manual) Monocytes % (Manual) Basophils % (Manual) Platelet Estimate Poikilocytosis (manual Anisocytosis (manual) PT 10.9 INR 1.0 APTT 35 H Sodium 133 Potassium 6.1 H Chloride 98 Carbon Dioxide 21 L Anion Gap 20 BUN 46 H Creatinine 3.3 H Est GFR ( Amer) 16 Est GFR (Non-Af Amer) 13 POC Glucose (mg/dL) 446 H* Random Glucose 553 H* D Calcium 9.4 Magnesium 2.1 Total Bilirubin 1.1 AST 68 H D ALT 43 Alkaline Phosphatase 156 H NT-Pro-B Natriuret Pep 14327 H Total Protein 6.9 Albumin 4.0 Globulin 2.9 Albumin/Globulin Ratio 1.4 09/19/18 09/19/18 09/19/18 07:51 11:17 11:22 WBC RBC Hgb Hct MCV MCH MCHC RDW Plt Count MPV Neut % (Auto) Lymph % (Auto) [place] % (Auto) Eos % (Auto) Baso % (Auto) Neut # (Auto) Lymph # (Auto) [place] # (Auto) Eos # (Auto) Baso # (Auto) Neutrophils % (Manual) Lymphocytes % (Manual) Monocytes % (Manual) Basophils % (Manual) Platelet Estimate Poikilocytosis (manual Anisocytosis (manual) PT INR APTT Sodium Potassium Chloride Carbon Dioxide Anion Gap BUN Creatinine Est GFR ( Amer) Est GFR (Non-Af Amer) POC Glucose (mg/dL) 476 H* 416 H* 363 H Random Glucose Calcium Magnesium Total Bilirubin AST ALT Alkaline Phosphatase NT-Pro-B Natriuret Pep Total Protein Albumin Globulin Albumin/Globulin Ratio Assessment & Plan - Assessment and Plan (Free Text) Assessment: REASONS FOR CONSULT : ESRD IN NEED FOR STAT HD HYPERKALEMIA .. K 6.1 P EDEMA .. F OVERLOAD .. CHF .. BNP > 18.000 PT RECEIVED HER HD STAT .. WAS SEEN ON HD .. History Of Present Illness 82 year old female presents to the ED c/o SOB. Patient goes to dialysis on Saturday, Saturday and Saturday. Patient reports he has been getting progressive SOB. Patient was recently admitted 2 weeks ago for similar complaints. Patient speaking in 3-4 word sentences. Patient denies fever, chills, nausea, vomit, dizziness, headache, CP, palpitations, weakness, numbness. Time Seen by Provider: 09/19/18 01:07 Chief Complaint (Nursing): Shortness Of Breath History Per: Patient History/Exam Limitations: no limitations Onset/Duration Of Symptoms: Days Current Symptoms Are (Timing): Still Present Initiating Event: Upper Respiratory Illness Quality: "Pain" Exacerbating Factor(s): Coughing Current Respiratory Medications: See Home Med List Recent travel outside of the [place]: No Additional History Per: Patient Past Medical History Reviewed: Historical Data, Nursing Documentation, Vital Signs Vital Signs: Last Vital Signs Temp 98.9 F 09/19/18 00:52 Pulse 94 H 09/19/18 00:52 Resp 22 09/19/18 00:52 BP 112/79 09/19/18 00:52 Pulse Ox 98 09/19/18 00:52 - Medical History PMH: Anxiety, Arthritis, Asthma, Bronchitis, Cardia Arrhythmia, CHF, COPD (Emphysema,), Dementia, Depression, Diabetes (type 2), Emphysema, Fractures, HTN, Hypercholesterolemia, Migraine, End Stage Renal Disease, Chronic Kidney Disease, TIA Surgical History: No Surg Hx - [facility] Procedures (09/09/18) ASSISTANCE WITH RESPIRATORY VENTILATION, 24-96 HRS, CPAP (11/01/16) INSERTION OF INFUSION DEV INTO INF VENA CAVA, PERC APPROACH (10/06/15) PERFORMANCE OF URINARY FILTRATION, MULTIPLE (12/24/16) PERFORMANCE OF URINARY FILTRATION, SINGLE (11/01/16) Family History: States: Unknown Family Hx - Social History Hx Tobacco Use: No Hx Alcohol Use: No Hx Substance Use: No - Immunization History Hx Tetanus Toxoid Vaccination: Yes Hx Influenza Vaccination: Yes (06/2015) - Date & Time Date: 09/19/18 Time: 14:00
--- NOTE | 2018-09-19 17:11 | CARD ---
APPROVED REPORT Date of service: 09/19/2018 EKG Measurement Heart [id number] <Conclusion> Normal sinus rhythm Possible Left atrial enlargement Left axis deviation Septal infarct, age undetermined Abnormal ECG
--- NOTE | 2018-09-19 21:10 | CP.PCM.CON ---
History of Present Illness - History of Present Illness History of Present Illness: 82 years old female was brought to the ED complaining of SOB and a left side chest pain. She is known to have an ESRD on HD, an IDDM, a COPD, HPTN, mild dementia. She lives alone and is forgetful. She had similar symptoms a few weeks ago. On this admission, her blood glucose was elevated as usual, Her NUN" 44 creatinine: 3.3 and K+: 6.1 Pro-BNP > 16,000. CXR: clear lungs ECG: SRS, poor R wave progression in leads V1, V2, V3, and no acute ST-T wave change. Past echo revealed a normal LV systolic function with grade I diastolic dysfunction. She states that she had HD yesterday. Review of Systems - Constitutional Constitutional: Weakness - Cardiovascular Cardiovascular: Chest Pain, Dyspnea - Respiratory Respiratory: Dyspnea Past Patient History - Infectious Disease Hx of Infectious Diseases: None - Tetanus Immunizations Tetanus Immunization: Unknown, Up to Date - Past Medical History & Family History Past Medical History?: Yes - Past Social History Smoking Status: Never Smoked Alcohol: None Home Situation {Lives}: Alone - CARDIAC Hx Cardia Arrhythmia: Yes Hx Congestive Heart Failure: Yes Hx Hypercholesterolemia: Yes Hx Hypertension: Yes - PULMONARY Hx Asthma: Yes Hx Bronchitis: Yes Hx Chronic Obstructive Pulmonary Disease (COPD): Yes (Emphysema,) Hx Emphysema: Yes - NEUROLOGICAL Hx Dementia: Yes Hx Migraine: Yes Hx Transient Ischemic Attacks (TIA): Yes - HEENT Hx HEENT Problems: Yes Hx Blind: Yes (Left eye.) - RENAL Hx Chronic Kidney Disease: Yes - ENDOCRINE/METABOLIC Hx Endocrine Disorders: Yes Hx Diabetes Mellitus Type 2: Yes - HEMATOLOGICAL/ONCOLOGICAL Hx Blood Disorders: No - INTEGUMENTARY Hx Dermatological Problems: Yes Hx Cellulitis: Yes Hx Eczema: Yes - MUSCULOSKELETAL/RHEUMATOLOGICAL Hx Arthritis: Yes Hx Falls: No Hx Fractures: Yes - GASTROINTESTINAL Hx Gastrointestinal Disorders: Yes Hx Gastroesophageal Reflux: Yes Hx Hemorrhoids: Yes - GENITOURINARY/GYNECOLOGICAL Hx Genitourinary Disorders: Yes Hx Urinary Tract Infection: Yes - PSYCHIATRIC Hx Anxiety: Yes Hx Depression: Yes Hx Substance Use: No - SURGICAL HISTORY Hx Surgeries: Yes Hx Arteriovenous Shunt: Yes (right arm) - ANESTHESIA Hx Anesthesia: Yes Hx Anesthesia Reactions: No Hx Malignant Hyperthermia: No Meds Allergies/Adverse Reactions: Allergies Allergy/AdvReac Type Severity Reaction Status Date / Time No Known Allergies Allergy Verified 09/19/18 00:59 - Medications Medications: Current Medications Albuterol Sulfate (Albuterol 0.083% Inhal Luisa (2.5 Mg/3 Ml) Ud) 2.5 mg INH RQ6 [facility] Aspirin (Aspirin Chewable) 81 mg PO DAILY [facility] Last Admin: 09/19/18 11:42 Dose: Not Given Clopidogrel Bisulfate (Plavix) 75 mg PO DAILY [facility] Last Admin: 09/19/18 11:43 Dose: Not Given Donepezil HCl (Aricept) 10 mg PO HS [facility] Furosemide (Lasix) 20 mg PO DAILY [facility] Last Admin: 09/19/18 11:42 Dose: Not Given Heparin Sodium (Porcine) (Heparin) 5,000 units SC Q8 [facility] Hydralazine HCl (Apresoline) 25 mg PO BID [facility] Last Admin: 09/19/18 17:26 Dose: 25 mg Insulin Aspart (Novolog) 0 unit SC [facility]; Protocol Last Admin: 09/19/18 17:27 Dose: 12 unit Insulin Glargine (Lantus) 40 unit SC [facility] Montelukast Sodium (Singulair) 10 mg PO DAILY [facility] Last Admin: 09/19/18 11:43 Dose: Not Given Rosuvastatin Calcium (Crestor) 5 mg PO HS [facility] Sevelamer Carbonate (Renvela) 800 mg PO TIDCC [facility] Last Admin: 09/19/18 17:27 Dose: 800 mg Vitamin B Complex/Vit C/Folic Acid (Nephro-Marina) 1 tab PO DAILY [facility] Last Admin: 09/19/18 11:43 Dose: Not Given Physical Exam - Constitutional Appears: No Acute Distress, Chronically Ill - Head Exam Head Exam: NORMAL INSPECTION - Eye Exam Eye Exam: Normal appearance Pupil Exam: NORMAL ACCOMODATION - ENT Exam ENT Exam: Normal Exam - Neck Exam Neck exam: Positive for: Normal Inspection - Respiratory Exam Additional comments: Few rales at both bases. - Cardiovascular Exam Cardiovascular Exam: REGULAR RHYTHM, Systolic Murmur - GI/Abdominal Exam GI & Abdominal Exam: Normal Bowel Sounds, Soft - Rectal Exam Rectal Exam: Deferred - Extremities Exam Extremities exam: Positive for: normal inspection - Back Exam Back exam: NORMAL INSPECTION - Neurological Exam Neurological exam: Alert, Oriented x3, Reflexes Normal - Psychiatric Exam Psychiatric exam: Anxious - Skin Skin Exam: Dry, Intact, Normal Color, Warm Results - Vital Signs Recent Vital Signs: Last Vital Signs Temp 98.2 F 09/19/18 15:00 Pulse 91 H 09/19/18 16:24 Resp 20 09/19/18 15:00 BP 143/66 09/19/18 15:00 Pulse Ox 99 09/19/18 15:00 - Labs Result Diagrams: 09/19/18 01:27 09/19/18 01:27 Labs: Laboratory Results - last 24 hr 09/19/18 09/19/18 09/19/18 00:50 00:53 01:27 WBC 8.4 RBC 3.85 Hgb 10.5 L Hct 33.1 L MCV 86.2 D MCH 27.3 MCHC 31.7 L RDW 17.2 H Plt Count 225 MPV 10.0 Neut % (Auto) 82.1 H Lymph % (Auto) 9.1 L [place] % (Auto) 7.6 Eos % (Auto) 0.3 Baso % (Auto) 0.9 Neut # (Auto) 6.9 Lymph # (Auto) 0.8 L [place] # (Auto) 0.6 Eos # (Auto) 0.0 Baso # (Auto) 0.1 Neutrophils % (Manual) 83 H Lymphocytes % (Manual) 8 L Monocytes % (Manual) 8 Basophils % (Manual) 1 Platelet Estimate Normal Poikilocytosis (manual Slight Anisocytosis (manual) Slight PT INR APTT Sodium Potassium Chloride Carbon Dioxide Anion Gap BUN Creatinine Est GFR ( Amer) Est GFR (Non-Af Amer) POC Glucose (mg/dL) > 500 H* 498 H* Random Glucose Calcium Magnesium Total Bilirubin AST ALT Alkaline Phosphatase NT-Pro-B Natriuret Pep Total Protein Albumin Globulin Albumin/Globulin Ratio 09/19/18 09/19/18 09/19/18 01:27 01:27 03:17 WBC RBC Hgb Hct MCV MCH MCHC RDW Plt Count MPV Neut % (Auto) Lymph % (Auto) [place] % (Auto) Eos % (Auto) Baso % (Auto) Neut # (Auto) Lymph # (Auto) [place] # (Auto) Eos # (Auto) Baso # (Auto) Neutrophils % (Manual) Lymphocytes % (Manual) Monocytes % (Manual) Basophils % (Manual) Platelet Estimate Poikilocytosis (manual Anisocytosis (manual) PT 10.9 INR 1.0 APTT 35 H Sodium 133 Potassium 6.1 H Chloride 98 Carbon Dioxide 21 L Anion Gap 20 BUN 46 H Creatinine 3.3 H Est GFR ( Amer) 16 Est GFR (Non-Af Amer) 13 POC Glucose (mg/dL) 446 H* Random Glucose 553 H* D Calcium 9.4 Magnesium 2.1 Total Bilirubin 1.1 AST 68 H D ALT 43 Alkaline Phosphatase 156 H NT-Pro-B Natriuret Pep 96845 H Total Protein 6.9 Albumin 4.0 Globulin 2.9 Albumin/Globulin Ratio 1.4 09/19/18 09/19/18 09/19/18 07:51 11:17 11:22 WBC RBC Hgb Hct MCV MCH MCHC RDW Plt Count MPV Neut % (Auto) Lymph % (Auto) [place] % (Auto) Eos % (Auto) Baso % (Auto) Neut # (Auto) Lymph # (Auto) [place] # (Auto) Eos # (Auto) Baso # (Auto) Neutrophils % (Manual) Lymphocytes % (Manual) Monocytes % (Manual) Basophils % (Manual) Platelet Estimate Poikilocytosis (manual Anisocytosis (manual) PT INR APTT Sodium Potassium Chloride Carbon Dioxide Anion Gap BUN Creatinine Est GFR ( Amer) Est GFR (Non-Af Amer) POC Glucose (mg/dL) 476 H* 416 H* 363 H Random Glucose Calcium Magnesium Total Bilirubin AST ALT Alkaline Phosphatase NT-Pro-B Natriuret Pep Total Protein Albumin Globulin Albumin/Globulin Ratio 09/19/18 16:24 WBC RBC Hgb Hct MCV MCH MCHC RDW Plt Count MPV Neut % (Auto) Lymph % (Auto) [place] % (Auto) Eos % (Auto) Baso % (Auto) Neut # (Auto) Lymph # (Auto) [place] # (Auto) Eos # (Auto) Baso # (Auto) Neutrophils % (Manual) Lymphocytes % (Manual) Monocytes % (Manual) Basophils % (Manual) Platelet Estimate Poikilocytosis (manual Anisocytosis (manual) PT INR APTT Sodium Potassium Chloride Carbon Dioxide Anion Gap BUN Creatinine Est GFR ( Amer) Est GFR (Non-Af Amer) POC Glucose (mg/dL) 421 H* Random Glucose Calcium Magnesium Total Bilirubin AST ALT Alkaline Phosphatase NT-Pro-B Natriuret Pep Total Protein Albumin Globulin Albumin/Globulin Ratio Assessment & Plan (1) ESRD needing dialysis Assessment and Plan: HD as per Paralegal. Status: Chronic (2) Acute on chronic diastolic heart failure Assessment and Plan: HD as per weed inspector. Status: Acute Priority: Medium (3) Poorly controlled diabetes mellitus Assessment and Plan: Adjust Insulin dosage as per Special Education Kindergarten Teacher. Status: Acute (4) Chest pain Assessment and Plan: Probably from chest wall. Will order ECG and serum TNI's in AM. Status: Acute
--- NOTE | 2018-09-19 21:26 | CP.PCM.PCO ---
Addendum Addendum: 09/19/18 21:24 House resident paged for chest pain. patient complaining of L-sided chest and neck pain. She is unable to describe quality. Dr. Mei is at bedside as well. Stat EKG, CXR, DION, CBC, CMP, Mg, Ph. No ST elevations on EKG. Patient also given her ASA, Plavix, and Lasix that she missed earlier. Patient admitted today for stat HD (she is ESRD patient with many recent hospitalizations). Trops positive during past admission, likely due to chronic renal disease.
[2018-09-19 22:02] LABS: BASO % 0.4 % (0.0-2.0); EOS % 0.1 % (0.0-4.0); HEMOGLOBIN 10.1 g/dL (11.0-16.0); LYMPH # 1.4 K/uL (1.0-4.3); LYMPH % 13.2 % (20.0-40.0); MEAN CELL VOLUME 84.5 fL (81.0-99.0); MEAN CORPUSCULAR HEMOGLOBIN 27.3 pg (27.0-31.0); MEAN CORPUSCULAR HGB CONC 32.4 g/dL (33.0-37.0); MEAN PLATELET VOLUME 9.2 fL (7.2-11.7); MONO # 1.6 K/uL (0.0-0.8); NEUT # 7.6 K/uL (1.8-7.0); NEUT % 71.3 % (50.0-75.0); RBC 3.7 Mil/uL (3.80-5.20); RED CELL DISTRIBUTION WIDTH 17.3 % (11.5-14.5); WHITE BLOOD COUNT 10.6 K/uL (4.8-10.8)
--- NOTE | 2018-09-19 22:15 | CP.PCM.HP ---
History of Present Illness - History of Present Illness History of Present Illness: 82-year-old female who developed progressi shortness of breath while at home and mild confusion is transported to the E FOR EVALUATION> Patient noted to have elevated blood sugar of 700 and a probe ENT of 16,000. Admission was a dvised for evaluation of cardiac status and control of blood sugar. Patient suffers from end-stage renal disease and insomnia on a dialysis schedule of Saturday and Saturday. Consultation was requested with nephrology and cardiology. Present on Admission - Present on Admission Any Indicators Present on Admission: No History of DVT/PE: No History of Uncontrolled Diabetes: Yes Urinary Catheter: No Decubitus Ulcer Present: No History Surgical Site Infection Following: None Review of Systems - Review of Systems Systems not reviewed;Unavailable: Altered Mental Status - Constitutional Constitutional: Malaise, Weakness - Cardiovascular Cardiovascular: Palpitations - Respiratory Respiratory: Dyspnea on Exertion - Musculoskeletal Musculoskeletal: Arthralgias, Myalgias - Integumentary Integumentary: Dry Skin - Neurological Neurological: Numbness - Psychiatric Psychiatric: Depression Past Patient History - Infectious Disease Hx of Infectious Diseases: None - Tetanus Immunizations Tetanus Immunization: Unknown, Up to Date - Past Medical History & Family History Past Medical History?: Yes - Past Social History Smoking Status: Never Smoked Chewing Tobacco Use: No Cigar Use: No Alcohol: None Drugs: Denies Home Situation {Lives}: Alone Domestic Violence: Negative - CARDIAC Hx Cardia Arrhythmia: Yes Hx Congestive Heart Failure: Yes Hx Hypercholesterolemia: Yes Hx Hypertension: Yes - PULMONARY Hx Asthma: Yes Hx Bronchitis: Yes Hx Chronic Obstructive Pulmonary Disease (COPD): Yes (Emphysema,) Hx Emphysema: Yes - NEUROLOGICAL Hx Dementia: Yes Hx Migraine: Yes Hx Transient Ischemic Attacks (TIA): Yes - HEENT Hx HEENT Problems: Yes Hx Blind: Yes (Left eye.) - RENAL Hx Chronic Kidney Disease: Yes - ENDOCRINE/METABOLIC Hx Endocrine Disorders: Yes Hx Diabetes Mellitus Type 2: Yes - HEMATOLOGICAL/ONCOLOGICAL Hx Blood Disorders: No - INTEGUMENTARY Hx Dermatological Problems: Yes Hx Cellulitis: Yes Hx Eczema: Yes - MUSCULOSKELETAL/RHEUMATOLOGICAL Hx Arthritis: Yes Hx Falls: No Hx Fractures: Yes - GASTROINTESTINAL Hx Gastrointestinal Disorders: Yes Hx Gastroesophageal Reflux: Yes Hx Hemorrhoids: Yes - GENITOURINARY/GYNECOLOGICAL Hx Genitourinary Disorders: Yes Hx Urinary Tract Infection: Yes - PSYCHIATRIC Hx Anxiety: Yes Hx Depression: Yes Hx Substance Use: No - SURGICAL HISTORY Hx Surgeries: Yes Hx Arteriovenous Shunt: Yes (right arm) - ANESTHESIA Hx Anesthesia: Yes Hx Anesthesia Reactions: No Hx Malignant Hyperthermia: No Meds Allergies/Adverse Reactions: Allergies Allergy/AdvReac Type Severity Reaction Status Date / Time No Known Allergies Allergy Verified 09/19/18 00:59 Physical Exam - Constitutional Appears: Chronically Ill - Head Exam Head Exam: NORMOCEPHALIC - Eye Exam Eye Exam: Normal appearance Pupil Exam: NORMAL ACCOMODATION - ENT Exam ENT Exam: Normal Exam - Neck Exam Neck exam: Positive for: Normal Inspection - Respiratory Exam Respiratory Exam: Decreased Breath Sounds - Cardiovascular Exam Cardiovascular Exam: REGULAR RHYTHM - GI/Abdominal Exam GI & Abdominal Exam: Normal Bowel Sounds - Rectal Exam Rectal Exam: Deferred - Exam External exam: NORMAL EXTERNAL EXAM - Extremities Exam Extremities exam: Positive for: pedal pulses present - Back Exam Back exam: NORMAL INSPECTION - Neurological Exam Neurological exam: Altered - Psychiatric Exam Psychiatric exam: Depressed - Skin Skin Exam: Dry Results - Vital Signs Recent Vital Signs: Last Vital Signs Temp 98.2 F 09/19/18 15:00 Pulse 91 H 09/19/18 16:24 Resp 20 09/19/18 15:00 BP 128/61 09/19/18 21:16 Pulse Ox 99 09/19/18 15:00 - Labs Result Diagrams: 09/19/18 22:00 09/19/18 01:27 Labs: Laboratory Results - last 24 hr 09/19/18 09/19/18 09/19/18 00:50 00:53 01:27 WBC 8.4 RBC 3.85 Hgb 10.5 L Hct 33.1 L MCV 86.2 D MCH 27.3 MCHC 31.7 L RDW 17.2 H Plt Count 225 MPV 10.0 Neut % (Auto) 82.1 H Lymph % (Auto) 9.1 L [place] % (Auto) 7.6 Eos % (Auto) 0.3 Baso % (Auto) 0.9 Neut # (Auto) 6.9 Lymph # (Auto) 0.8 L [place] # (Auto) 0.6 Eos # (Auto) 0.0 Baso # (Auto) 0.1 Neutrophils % (Manual) 83 H Lymphocytes % (Manual) 8 L Monocytes % (Manual) 8 Basophils % (Manual) 1 Platelet Estimate Normal Poikilocytosis (manual Slight Anisocytosis (manual) Slight PT INR APTT Sodium Potassium Chloride Carbon Dioxide Anion Gap BUN Creatinine Est GFR ( Amer) Est GFR (Non-Af Amer) POC Glucose (mg/dL) > 500 H* 498 H* Random Glucose Calcium Magnesium Total Bilirubin AST ALT Alkaline Phosphatase NT-Pro-B Natriuret Pep Total Protein Albumin Globulin Albumin/Globulin Ratio 09/19/18 09/19/18 09/19/18 01:27 01:27 03:17 WBC RBC Hgb Hct MCV MCH MCHC RDW Plt Count MPV Neut % (Auto) Lymph % (Auto) [place] % (Auto) Eos % (Auto) Baso % (Auto) Neut # (Auto) Lymph # (Auto) [place] # (Auto) Eos # (Auto) Baso # (Auto) Neutrophils % (Manual) Lymphocytes % (Manual) Monocytes % (Manual) Basophils % (Manual) Platelet Estimate Poikilocytosis (manual Anisocytosis (manual) PT 10.9 INR 1.0 APTT 35 H Sodium 133 Potassium 6.1 H Chloride 98 Carbon Dioxide 21 L Anion Gap 20 BUN 46 H Creatinine 3.3 H Est GFR ( Amer) 16 Est GFR (Non-Af Amer) 13 POC Glucose (mg/dL) 446 H* Random Glucose 553 H* D Calcium 9.4 Magnesium 2.1 Total Bilirubin 1.1 AST 68 H D ALT 43 Alkaline Phosphatase 156 H NT-Pro-B Natriuret Pep 44512 H Total Protein 6.9 Albumin 4.0 Globulin 2.9 Albumin/Globulin Ratio 1.4 09/19/18 09/19/18 09/19/18 07:51 11:17 11:22 WBC RBC Hgb Hct MCV MCH MCHC RDW Plt Count MPV Neut % (Auto) Lymph % (Auto) [place] % (Auto) Eos % (Auto) Baso % (Auto) Neut # (Auto) Lymph # (Auto) [place] # (Auto) Eos # (Auto) Baso # (Auto) Neutrophils % (Manual) Lymphocytes % (Manual) Monocytes % (Manual) Basophils % (Manual) Platelet Estimate Poikilocytosis (manual Anisocytosis (manual) PT INR APTT Sodium Potassium Chloride Carbon Dioxide Anion Gap BUN Creatinine Est GFR ( Amer) Est GFR (Non-Af Amer) POC Glucose (mg/dL) 476 H* 416 H* 363 H Random Glucose Calcium Magnesium Total Bilirubin AST ALT Alkaline Phosphatase NT-Pro-B Natriuret Pep Total Protein Albumin Globulin Albumin/Globulin Ratio 09/19/18 09/19/18 09/19/18 16:24 21:37 22:00 WBC 10.6 RBC 3.70 L Hgb 10.1 L Hct 31.3 L MCV 84.5 MCH 27.3 MCHC 32.4 L RDW 17.3 H Plt Count 235 MPV 9.2 Neut % (Auto) 71.3 Lymph % (Auto) 13.2 L [place] % (Auto) 15.0 H Eos % (Auto) 0.1 Baso % (Auto) 0.4 Neut # (Auto) 7.6 H Lymph # (Auto) 1.4 [place] # (Auto) 1.6 H Eos # (Auto) 0.0 Baso # (Auto) 0.0 Neutrophils % (Manual) Lymphocytes % (Manual) Monocytes % (Manual) Basophils % (Manual) Platelet Estimate Poikilocytosis (manual Anisocytosis (manual) PT INR APTT Sodium Potassium Chloride Carbon Dioxide Anion Gap BUN Creatinine Est GFR ( Amer) Est GFR (Non-Af Amer) POC Glucose (mg/dL) 421 H* 154 H Random Glucose Calcium Magnesium Total Bilirubin AST ALT Alkaline Phosphatase NT-Pro-B Natriuret Pep Total Protein Albumin Globulin Albumin/Globulin Ratio Assessment & Plan (1) Poorly controlled diabetes mellitus Status: Acute (2) ESRD needing dialysis Status: Chronic (3) Acute on chronic diastolic heart failure Status: Acute Priority: Medium
[2018-09-19 22:17] LABS: ALB/GLOB RATIO 1.3 (1.0-2.1); ALBUMIN 3.6 g/dL (3.5-5.0); CALCIUM 9.5 mg/dl (8.6-10.4)
[2018-09-19] MEDS: (Lantus) Insulin Glargine, Recombinant SC SCH (22:21)
[2018-09-19 22:26] LABS: CK-MB 1.8 ng/mL (0.0-3.38); TROPONIN I 0.099 ng/mL (0.00-0.120)
[2018-09-20] MEDS: Albuterol 0.083% Inhal Sol (2.5 mg/3 mL) UD INH SCH ×4 (01:58→20:36)
[2018-09-20 06:38] LABS: BASO % 0.3 % (0.0-2.0); EOS # 0.1 K/uL (0.0-0.7); EOS % 0.8 % (0.0-4.0); HEMOGLOBIN 9.9 g/dL (11.0-16.0); LYMPH % 22.1 % (20.0-40.0); MEAN CELL VOLUME 84.7 fL (81.0-99.0); MEAN CORPUSCULAR HEMOGLOBIN 27.4 pg (27.0-31.0); MEAN CORPUSCULAR HGB CONC 32.3 g/dL (33.0-37.0); MEAN PLATELET VOLUME 9.8 fL (7.2-11.7); MONO % 10.8 % (0.0-10.0); NEUT # 6.1 K/uL (1.8-7.0); NRBC % 0.1 % (0.0-2.0); RBC 3.62 Mil/uL (3.80-5.20); RED CELL DISTRIBUTION WIDTH 17.1 % (11.5-14.5); WHITE BLOOD COUNT 9.2 K/uL (4.8-10.8)
[2018-09-20 06:52] LABS: ALB/GLOB RATIO 1.2 (1.0-2.1); ALBUMIN 3.4 g/dL (3.5-5.0); CALCIUM 9.1 mg/dl (8.6-10.4)
[2018-09-20 07:02] LABS: TROPONIN I 0.099 ng/mL (0.00-0.120)
[2018-09-20] MEDS: Multivitamin Vitamin B Complex (Nephro-Vite) Tab PO SCH (09:28)
[2018-09-20] MEDS: (Novolog) Insulin Aspart, Recombinant 100 u/ml 10 ml vial SC SCH ×6 (09:28→21:59)
--- NOTE | 2018-09-20 17:33 | RAD ---
Date of service: 09/19/2018 HISTORY: chest pain COMPARISON: Comparison is made with the previous same-day exam. FINDINGS: LUNGS: Moderate pulmonary vascular congestion and haziness noted in both lungs lower lobes PLEURA: Blunting of the right costophrenic angle is noted. CARDIOVASCULAR: Atherosclerotic disease is present The cardiac silhouette is enlarged no pulmonary vascular congestion. OSSEOUS STRUCTURES: No significant abnormalities. VISUALIZED UPPER ABDOMEN: Normal. OTHER FINDINGS: Right-sided vascular stent is seen overlying the proximal right clavicle IMPRESSION: Cardiomegaly and pulmonary vascular congestion.
--- NOTE | 2018-09-20 18:02 | CP.PCM.PN ---
Subjective - Date & Time of Evaluation Date of Evaluation: 09/20/18 Time of Evaluation: 18:00 - Subjective Subjective: Patient has no chest pain, no SOB. Alert, in no respiratory distress. Telemetry: RSR. TNI x 2 : WNL. Objective - Vital Signs/Intake and Output Vital Signs (last 24 hours): Temp Pulse Resp BP Pulse Ox 98.5 F 95 H 20 150/65 96 09/20/18 15:15 09/20/18 16:00 09/20/18 15:15 09/20/18 15:15 09/20/18 15:15 Intake and Output: 09/20/18 09/20/18 06:59 18:59 Intake Total 240 300 Balance 240 300 - Medications Medications: Current Medications Acetaminophen (Tylenol 325mg Tab) 650 mg PO Q6 PRN PRN Reason: Pain, Mild (1-3) Albuterol Sulfate (Albuterol 0.083% Inhal Luisa (2.5 Mg/3 Ml) Ud) 2.5 mg INH RQ6 [facility] Last Admin: 09/20/18 13:31 Dose: 2.5 mg Aspirin (Aspirin Chewable) 81 mg PO DAILY [facility] Last Admin: 09/20/18 09:28 Dose: 81 mg Clopidogrel Bisulfate (Plavix) 75 mg PO DAILY [facility] Last Admin: 09/20/18 09:28 Dose: 75 mg Donepezil HCl (Aricept) 10 mg PO HS [facility] Last Admin: 09/19/18 22:20 Dose: 10 mg Furosemide (Lasix) 20 mg PO DAILY [facility] Last Admin: 09/20/18 09:28 Dose: 20 mg Heparin Sodium (Porcine) (Heparin) 5,000 units SC Q8 [facility] Last Admin: 09/20/18 13:01 Dose: 5,000 units Hydralazine HCl (Apresoline) 25 mg PO BID [facility] Last Admin: 09/20/18 17:53 Dose: 25 mg Insulin Aspart (Novolog) 0 unit SC ACHS [facility]; Protocol Last Admin: 09/20/18 17:55 Dose: 3 unit Insulin Aspart (Novolog) 14 unit SC BIDAC [facility] Last Admin: 09/20/18 17:54 Dose: 14 units Insulin Glargine (Lantus) 40 unit SC HS [facility] Last Admin: 09/19/18 22:21 Dose: 40 units Montelukast Sodium (Singulair) 10 mg PO DAILY [facility] Last Admin: 09/20/18 09:28 Dose: 10 mg Rosuvastatin Calcium (Crestor) 5 mg PO HS [facility] Last Admin: 09/19/18 22:20 Dose: 5 mg Sevelamer Carbonate (Renvela) 800 mg PO TIDCC [facility] Last Admin: 09/20/18 17:53 Dose: 800 mg Vitamin B Complex/Vit C/Folic Acid (Nephro-Marina) 1 tab PO DAILY [facility] Last Admin: 09/20/18 09:28 Dose: 1 tab - Labs Labs: 09/20/18 06:22 09/20/18 06:22 PT 10.9 SECONDS (9.7-12.2) 09/19/18 01:27 INR 1.0 09/19/18 01:27 APTT 35 SECONDS (21-34) H 09/19/18 01:27 - Constitutional Appears: Well, No Acute Distress, Chronically Ill - Head Exam Head Exam: NORMAL INSPECTION - Eye Exam Eye Exam: Normal appearance - ENT Exam ENT Exam: Normal Exam - Neck Exam Neck Exam: Normal Inspection - Respiratory Exam Respiratory Exam: Clear to Ausculation Bilateral, NORMAL BREATHING PATTERN - Cardiovascular Exam Cardiovascular Exam: REGULAR RHYTHM, Murmur - GI/Abdominal Exam GI & Abdominal Exam: Soft, Normal Bowel Sounds - Rectal Exam Rectal Exam: Deferred - Extremities Exam Extremities Exam: Normal Inspection - Back Exam Back Exam: NORMAL INSPECTION - Neurological Exam Neurological Exam: Alert, Awake, Oriented x3 - Psychiatric Exam Psychiatric exam: Anxious - Skin Skin Exam: Dry, Intact, Normal Color, Warm Assessment and Plan (1) ESRD needing dialysis Status: Chronic (2) Acute on chronic diastolic heart failure Status: Resolved (3) Poorly controlled diabetes mellitus Status: Acute (4) Chest pain Status: Resolved
--- NOTE | 2018-09-20 18:57 | CP.PCM.PN ---
Subjective - Date & Time of Evaluation Date of Evaluation: 09/20/18 Time of Evaluation: 15:00 - Subjective Subjective: SEEN ON RENAL F/U FEELS BETTER .. NO SOB .. NO C/P ON HD M W F Objective - Vital Signs/Intake and Output Vital Signs (last 24 hours): Temp Pulse Resp BP Pulse Ox 98.5 F 95 H 20 150/65 96 09/20/18 15:15 09/20/18 16:00 09/20/18 15:15 09/20/18 15:15 09/20/18 15:15 Intake and Output: 09/20/18 09/20/18 06:59 18:59 Intake Total 240 300 Balance 240 300 - Medications Medications: Current Medications Acetaminophen (Tylenol 325mg Tab) 650 mg PO Q6 PRN PRN Reason: Pain, Mild (1-3) Albuterol Sulfate (Albuterol 0.083% Inhal Luisa (2.5 Mg/3 Ml) Ud) 2.5 mg INH RQ6 [facility] Last Admin: 09/20/18 13:31 Dose: 2.5 mg Aspirin (Aspirin Chewable) 81 mg PO DAILY [facility] Last Admin: 09/20/18 09:28 Dose: 81 mg Clopidogrel Bisulfate (Plavix) 75 mg PO DAILY [facility] Last Admin: 09/20/18 09:28 Dose: 75 mg Donepezil HCl (Aricept) 10 mg PO HS [facility] Last Admin: 09/19/18 22:20 Dose: 10 mg Furosemide (Lasix) 20 mg PO DAILY [facility] Last Admin: 09/20/18 09:28 Dose: 20 mg Heparin Sodium (Porcine) (Heparin) 5,000 units SC Q8 [facility] Last Admin: 09/20/18 13:01 Dose: 5,000 units Hydralazine HCl (Apresoline) 25 mg PO BID [facility] Last Admin: 09/20/18 17:53 Dose: 25 mg Insulin Aspart (Novolog) 0 unit SC ACHS [facility]; Protocol Last Admin: 09/20/18 17:55 Dose: 3 unit Insulin Aspart (Novolog) 14 unit SC BIDAC [facility] Last Admin: 09/20/18 17:54 Dose: 14 units Insulin Glargine (Lantus) 40 unit SC HS [facility] Last Admin: 09/19/18 22:21 Dose: 40 units Montelukast Sodium (Singulair) 10 mg PO DAILY [facility] Last Admin: 09/20/18 09:28 Dose: 10 mg Rosuvastatin Calcium (Crestor) 5 mg PO HS [facility] Last Admin: 09/19/18 22:20 Dose: 5 mg Sevelamer Carbonate (Renvela) 800 mg PO TIDCC [facility] Last Admin: 09/20/18 17:53 Dose: 800 mg Vitamin B Complex/Vit C/Folic Acid (Nephro-Marina) 1 tab PO DAILY [facility] Last Admin: 09/20/18 09:28 Dose: 1 tab - Labs Labs: 09/20/18 06:22 09/20/18 06:22 PT 10.9 SECONDS (9.7-12.2) 09/19/18 01:27 INR 1.0 09/19/18 01:27 APTT 35 SECONDS (21-34) H 09/19/18 01:27 Assessment and Plan - Assessment and Plan (Free Text) Assessment: ESRD ON HD M W F ANEMIA OF CKD .. H/H STABLE MMP P : C/O CURRENT CARE C/O PRESENT MANAGEMENT
--- NOTE | 2018-09-20 19:34 | CP.PCM.PN ---
Subjective - Date & Time of Evaluation Date of Evaluation: 09/20/18 Time of Evaluation: 15:55 - Subjective Subjective: patient improved today. She has less shortnes of breath and blood glucose is averaging 350 today. Patient is more responsive and oriented. Patient has not had chest pain today and she was evaluated by cardiology. We will attempt to beter blood sugar by altering present regimen. This is the fourth admission Mrs. Prater has had in the past 8 weeks. I have spoken to the patient's daughter Nova about the dangers of extremely elevated blood sugar ranging between 750 and 1800. Besides having end-stage renal disease the patient also suffers from congestive heart failure. we suspect Mrs. fleming forgets to take her insulin injection. On September 19 at 1:20 PM, I had a discussion with the healthcare social worker team of [address] [place] [address] and the director of direct marketing in her office on the third floor. They are well aware of Mrs. Story condition and dangerous of her not having proper supervision and assistance. I have also spoken to the nurse at [facility]. [facility] day[facility] center. She to is aware of the serious situation that we have at present. I have asked the healthcare social worker team to once again speak to Mrs. Prater daughter. She has assured us in the past that her mother has constant supervision. u collinsunately on numerous instances of either medical office visits or emergency room visits there is no supervisior accompanying the patient. The patient states that she lives alone. The healthcare social worker team will once again stress to the patient's daughter the need for constant supravision. Objective - Vital Signs/Intake and Output Vital Signs (last 24 hours): Temp Pulse Resp BP Pulse Ox 98.5 F 95 H 20 150/65 96 09/20/18 15:15 09/20/18 16:00 09/20/18 15:15 09/20/18 15:15 09/20/18 15:15 Intake and Output: 09/20/18 09/21/18 18:59 06:59 Intake Total 300 Balance 300 - Medications Medications: Current Medications Acetaminophen (Tylenol 325mg Tab) 650 mg PO Q6 PRN PRN Reason: Pain, Mild (1-3) Albuterol Sulfate (Albuterol 0.083% Inhal Luisa (2.5 Mg/3 Ml) Ud) 2.5 mg INH RQ6 [facility] Last Admin: 12/15/18 13:31 Dose: 2.5 mg Aspirin (Aspirin Chewable) 81 mg PO DAILY [facility] Last Admin: 09/20/18 09:28 Dose: 81 mg Clopidogrel Bisulfate (Plavix) 75 mg PO DAILY [facility] Last Admin: 09/20/18 09:28 Dose: 75 mg Donepezil HCl (Aricept) 10 mg PO HS [facility] Last Admin: 09/19/18 22:20 Dose: 10 mg Furosemide (Lasix) 20 mg PO DAILY [facility] Last Admin: 09/20/18 09:28 Dose: 20 mg Heparin Sodium (Porcine) (Heparin) 5,000 units SC Q8 [facility] Last Admin: 09/20/18 13:01 Dose: 5,000 units Hydralazine HCl (Apresoline) 25 mg PO BID [facility] Last Admin: 09/20/18 17:53 Dose: 25 mg Insulin Aspart (Novolog) 0 unit SC ACHS [facility]; Protocol Last Admin: 09/20/18 17:55 Dose: 3 unit Insulin Aspart (Novolog) 14 unit SC BIDAC [facility] Last Admin: 09/20/18 17:54 Dose: 14 units Insulin Glargine (Lantus) 40 unit SC HS [facility] Last Admin: 09/19/18 22:21 Dose: 40 units Montelukast Sodium (Singulair) 10 mg PO DAILY [facility] Last Admin: 09/20/18 09:28 Dose: 10 mg Rosuvastatin Calcium (Crestor) 5 mg PO HS [facility] Last Admin: 09/19/18 22:20 Dose: 5 mg Sevelamer Carbonate (Renvela) 800 mg PO TIDCC [facility] Last Admin: 09/20/18 17:53 Dose: 800 mg Vitamin B Complex/Vit C/Folic Acid (Nephro-Marina) 1 tab PO DAILY [facility] Last Admin: 09/20/18 09:28 Dose: 1 tab - Labs Labs: 09/20/18 06:22 09/20/18 06:22 PT 10.9 SECONDS (9.7-12.2) 09/19/18 01:27 INR 1.0 09/19/18 01:27 APTT 35 SECONDS (21-34) H 09/19/18 01:27 - Constitutional Appears: Chronically Ill - Head Exam Head Exam: NORMOCEPHALIC - Eye Exam Eye Exam: Normal appearance Pupil Exam: NORMAL ACCOMODATION - ENT Exam ENT Exam: Normal Exam - Neck Exam Neck Exam: Normal Inspection - Respiratory Exam Respiratory Exam: Decreased Breath Sounds - Cardiovascular Exam Cardiovascular Exam: REGULAR RHYTHM - GI/Abdominal Exam GI & Abdominal Exam: Normal Bowel Sounds - Rectal Exam Rectal Exam: Deferred - Exam External exam: NORMAL EXTERNAL EXAM - Back Exam Back Exam: NORMAL INSPECTION - Neurological Exam Neurological Exam: Oriented x3 - Psychiatric Exam Psychiatric exam: Depressed - Skin Skin Exam: Dry Assessment and Plan (1) Poorly controlled diabetes mellitus Status: Acute (2) ESRD needing dialysis Status: Chronic (3) Acute on chronic diastolic heart failure Status: Resolved
[2018-09-20] MEDS: Albuterol-Ipratrop 3 mg / 0.5 (3 ml) UD INH SCH (20:36)
[2018-09-20] MEDS: (Lantus) Insulin Glargine, Recombinant SC SCH (21:59)
[2018-09-21] MEDS: Albuterol 0.083% Inhal Sol (2.5 mg/3 mL) UD INH SCH ×5 (01:00→18:49)
[2018-09-21] MEDS: (Novolog) Insulin Aspart, Recombinant 100 u/ml 10 ml vial SC SCH ×6 (08:14→21:53)
[2018-09-21 08:29] LABS: BASO % 0.5 % (0.0-2.0); EOS # 0.3 K/uL (0.0-0.7); EOS % 3.9 % (0.0-4.0); HEMOGLOBIN 10.3 g/dL (11.0-16.0); LYMPH # 1.9 K/uL (1.0-4.3); LYMPH % 26.1 % (20.0-40.0); MEAN CELL VOLUME 84.8 fL (81.0-99.0); MEAN CORPUSCULAR HEMOGLOBIN 27.7 pg (27.0-31.0); MEAN CORPUSCULAR HGB CONC 32.7 g/dL (33.0-37.0); MEAN PLATELET VOLUME 9.5 fL (7.2-11.7); MONO # 0.9 K/uL (0.0-0.8); MONO % 13.2 % (0.0-10.0); NEUT % 56.3 % (50.0-75.0); RBC 3.73 Mil/uL (3.80-5.20); RED CELL DISTRIBUTION WIDTH 17.4 % (11.5-14.5); WHITE BLOOD COUNT 7.1 K/uL (4.8-10.8)
[2018-09-21 08:35] LABS: TROPONIN I 0.086 ng/mL (0.00-0.120)
[2018-09-21 08:42] LABS: ALB/GLOB RATIO 1.3 (1.0-2.1); ALBUMIN 3.6 g/dL (3.5-5.0); CALCIUM 9.2 mg/dl (8.6-10.4)
[2018-09-21] MEDS ORDERED: (Novolog) Insulin Aspart, Recombinant 100 u/ml 10 ml vial SC ONE (09:00)
[2018-09-21] MEDS: Multivitamin Vitamin B Complex (Nephro-Vite) Tab PO SCH (09:34)
--- NOTE | 2018-09-21 16:26 | CP.PCM.PN ---
Subjective - Date & Time of Evaluation Date of Evaluation: 09/21/18 Time of Evaluation: 16:24 - Subjective Subjective: Patient has no complaint of chest pain or SOB. BP elevated. Objective - Vital Signs/Intake and Output Vital Signs (last 24 hours): Temp Pulse Resp BP Pulse Ox 98.2 F 87 20 176/92 H 97 09/21/18 07:00 09/21/18 15:32 09/21/18 08:50 09/21/18 09:34 09/21/18 08:50 Intake and Output: 09/21/18 09/21/18 06:59 18:59 Intake Total 350 Balance 350 - Medications Medications: Current Medications Acetaminophen (Tylenol 325mg Tab) 650 mg PO Q6 PRN PRN Reason: Pain, Mild (1-3) Albuterol Sulfate (Albuterol 0.083% Inhal Luisa (2.5 Mg/3 Ml) Ud) 2.5 mg INH RQ6 [facility] Last Admin: 09/21/18 13:44 Dose: 2.5 mg Aspirin (Aspirin Chewable) 81 mg PO DAILY [facility] Last Admin: 09/21/18 09:34 Dose: 81 mg Clopidogrel Bisulfate (Plavix) 75 mg PO DAILY [facility] Last Admin: 09/21/18 09:35 Dose: 75 mg Donepezil HCl (Aricept) 10 mg PO HS [facility] Last Admin: 09/20/18 21:36 Dose: 10 mg Furosemide (Lasix) 20 mg PO DAILY [facility] Last Admin: 09/21/18 09:34 Dose: 20 mg Heparin Sodium (Porcine) (Heparin) 5,000 units SC Q8 [facility] Last Admin: 09/21/18 14:24 Dose: Not Given Hydralazine HCl (Apresoline) 25 mg PO TID [facility] Insulin Aspart (Novolog) 14 unit SC BIDAC [facility] Last Admin: 09/21/18 08:14 Dose: Not Given Insulin Aspart (Novolog) 0 unit SC ACHS [facility]; Protocol Last Admin: 09/21/18 12:32 Dose: 2 unit Insulin Glargine (Lantus) 40 unit SC HS [facility] Last Admin: 09/20/18 21:59 Dose: Not Given Losartan Potassium (Cozaar) 50 mg PO DAILY [facility] Montelukast Sodium (Singulair) 10 mg PO DAILY [facility] Last Admin: 09/21/18 09:34 Dose: 10 mg Rosuvastatin Calcium (Crestor) 5 mg PO HS [facility] Last Admin: 09/20/18 21:36 Dose: 5 mg Sevelamer Carbonate (Renvela) 800 mg PO TIDCC [facility] Last Admin: 09/21/18 12:32 Dose: 800 mg Vitamin B Complex/Vit C/Folic Acid (Nephro-Marina) 1 tab PO DAILY [facility] Last Admin: 09/21/18 09:34 Dose: 1 tab - Labs Labs: 09/21/18 07:59 09/21/18 07:59 PT 10.9 SECONDS (9.7-12.2) 09/19/18 01:27 INR 1.0 09/19/18 01:27 APTT 35 SECONDS (21-34) H 09/19/18 01:27 - Constitutional Appears: Well, No Acute Distress, Chronically Ill - Head Exam Head Exam: NORMOCEPHALIC - Eye Exam Eye Exam: Normal appearance - ENT Exam ENT Exam: Normal Exam - Neck Exam Neck Exam: Normal Inspection - Respiratory Exam Respiratory Exam: Clear to Ausculation Bilateral, NORMAL BREATHING PATTERN - Cardiovascular Exam Cardiovascular Exam: REGULAR RHYTHM - GI/Abdominal Exam GI & Abdominal Exam: Soft, Normal Bowel Sounds - Rectal Exam Rectal Exam: Deferred - Extremities Exam Extremities Exam: Normal Inspection - Back Exam Back Exam: NORMAL INSPECTION - Neurological Exam Neurological Exam: Alert, Awake, Oriented x3 - Psychiatric Exam Psychiatric exam: Anxious - Skin Skin Exam: Dry, Intact, Normal Color, Warm Assessment and Plan (1) ESRD needing dialysis Status: Chronic (2) Acute on chronic diastolic heart failure Status: Resolved (3) Poorly controlled diabetes mellitus Status: Acute (4) Chest pain Status: Resolved
[2018-09-21] MEDS: (Lantus) Insulin Glargine, Recombinant SC SCH (21:41)
--- NOTE | 2018-09-21 23:44 | CP.PCM.PN ---
Subjective - Date & Time of Evaluation Date of Evaluation: 09/21/18 Time of Evaluation: 19:05 - Subjective Subjective: patient complains of fatigue. she is resting comfortably with no shortness of breath. Blood pressure has been running high. Hydralazine was odered. Patient scheduled for dialysis in a.m. Objective - Vital Signs/Intake and Output Vital Signs (last 24 hours): Temp Pulse Resp BP Pulse Ox 97.9 F 86 20 158/70 H 97 09/21/18 16:36 09/21/18 16:36 09/21/18 16:36 09/21/18 22:40 09/21/18 16:36 - Medications Medications: Current Medications Acetaminophen (Tylenol 325mg Tab) 650 mg PO Q6 PRN PRN Reason: Pain, Mild (1-3) Last Admin: 09/21/18 21:40 Dose: 650 mg Albuterol Sulfate (Albuterol 0.083% Inhal Luisa (2.5 Mg/3 Ml) Ud) 2.5 mg INH RQ6 [facility] Last Admin: 09/21/18 18:49 Dose: 2.5 mg Aspirin (Aspirin Chewable) 81 mg PO DAILY [facility] Last Admin: 09/21/18 09:34 Dose: 81 mg Clopidogrel Bisulfate (Plavix) 75 mg PO DAILY [facility] Last Admin: 09/21/18 09:35 Dose: 75 mg Donepezil HCl (Aricept) 10 mg PO HS [facility] Last Admin: 09/21/18 21:40 Dose: 10 mg Furosemide (Lasix) 20 mg PO DAILY [facility] Last Admin: 09/21/18 09:34 Dose: 20 mg Heparin Sodium (Porcine) (Heparin) 5,000 units SC Q8 [facility] Last Admin: 09/21/18 21:41 Dose: 5,000 units Hydralazine HCl (Apresoline) 25 mg PO TID [facility] Last Admin: 09/21/18 18:02 Dose: 25 mg Insulin Aspart (Novolog) 14 unit SC BIDAC [facility] Last Admin: 09/21/18 18:02 Dose: 14 units Insulin Aspart (Novolog) 0 unit SC ACHS [facility]; Protocol Last Admin: 09/21/18 21:53 Dose: Not Given Insulin Glargine (Lantus) 40 unit SC HS [facility] Last Admin: 09/21/18 21:41 Dose: 40 units Losartan Potassium (Cozaar) 50 mg PO DAILY [facility] Last Admin: 09/21/18 16:50 Dose: 50 mg Montelukast Sodium (Singulair) 10 mg PO DAILY [facility] Last Admin: 09/21/18 09:34 Dose: 10 mg Rosuvastatin Calcium (Crestor) 5 mg PO HS [facility] Last Admin: 09/21/18 21:40 Dose: 5 mg Sevelamer Carbonate (Renvela) 800 mg PO TIDCC [facility] Last Admin: 09/21/18 18:02 Dose: 800 mg Vitamin B Complex/Vit C/Folic Acid (Nephro-Marina) 1 tab PO DAILY [facility] Last Admin: 09/21/18 09:34 Dose: 1 tab - Labs Labs: 09/21/18 07:59 09/21/18 07:59 PT 10.9 SECONDS (9.7-12.2) 09/19/18 01:27 INR 1.0 09/19/18 01:27 APTT 35 SECONDS (21-34) H 09/19/18 01:27 - Constitutional Appears: Chronically Ill - Head Exam Head Exam: NORMOCEPHALIC - Eye Exam Eye Exam: Normal appearance Pupil Exam: NORMAL ACCOMODATION - ENT Exam ENT Exam: Normal Exam - Respiratory Exam Respiratory Exam: Decreased Breath Sounds - Cardiovascular Exam Cardiovascular Exam: REGULAR RHYTHM - GI/Abdominal Exam GI & Abdominal Exam: Normal Bowel Sounds - Rectal Exam Rectal Exam: Deferred - Exam External exam: NORMAL EXTERNAL EXAM - Back Exam Back Exam: NORMAL INSPECTION - Neurological Exam Neurological Exam: Oriented x3 - Psychiatric Exam Psychiatric exam: Depressed - Skin Skin Exam: Dry Assessment and Plan (1) Poorly controlled diabetes mellitus Status: Acute (2) ESRD needing dialysis Status: Chronic (3) Acute on chronic diastolic heart failure Status: Resolved
[2018-09-22] MEDS: Albuterol 0.083% Inhal Sol (2.5 mg/3 mL) UD INH SCH ×4 (02:19→20:06)
[2018-09-22] MEDS: (Novolog) Insulin Aspart, Recombinant 100 u/ml 10 ml vial SC SCH ×6 (07:46→21:32)
[2018-09-22] MEDS: Multivitamin Vitamin B Complex (Nephro-Vite) Tab PO SCH (09:08)
[2018-09-22 10:00] LABS: ALB/GLOB RATIO 1.2 (1.0-2.1); ALBUMIN 3.4 g/dL (3.5-5.0); CALCIUM 9.3 mg/dl (8.6-10.4)
[2018-09-22 15:57] VITALS: RESP 20
--- NOTE | 2018-09-22 17:13 | CARD ---
APPROVED REPORT Date of service: 09/20/2018 EKG Measurement Heart [id number] <Conclusion> Normal sinus rhythm Possible Left atrial enlargement Left axis deviation Left ventricular hypertrophy Cannot rule out Septal infarct, age undetermined T wave abnormality, consider lateral ischemia Abnormal ECG
--- NOTE | 2018-09-22 17:14 | CARD ---
APPROVED REPORT Date of service: 09/19/2018 EKG Measurement Heart [id number] <Conclusion> Normal sinus rhythm Possible Left atrial enlargement Left axis deviation Left ventricular hypertrophy with repolarization abnormality Cannot rule out Septal infarct, age undetermined Abnormal ECG
--- NOTE | 2018-09-22 20:10 | CP.PCM.PN ---
Subjective - Date & Time of Evaluation Date of Evaluation: 09/22/18 Time of Evaluation: 20:08 - Subjective Subjective: Patient has no complaint of SOB or chest pain Had HD this AM. Objective - Vital Signs/Intake and Output Vital Signs (last 24 hours): Temp Pulse Resp BP Pulse Ox 98 F 79 20 152/75 H 100 09/22/18 15:56 09/22/18 16:00 09/22/18 15:56 09/22/18 15:56 09/22/18 15:56 - Medications Medications: Current Medications Acetaminophen (Tylenol 325mg Tab) 650 mg PO Q6 PRN PRN Reason: Pain, Mild (1-3) Last Admin: 09/21/18 21:40 Dose: 650 mg Albuterol Sulfate (Albuterol 0.083% Inhal Luisa (2.5 Mg/3 Ml) Ud) 2.5 mg INH RQ6 [facility] Last Admin: 09/22/18 20:06 Dose: Not Given Aspirin (Aspirin Chewable) 81 mg PO DAILY [facility] Last Admin: 09/22/18 09:08 Dose: Not Given Clopidogrel Bisulfate (Plavix) 75 mg PO DAILY [facility] Last Admin: 09/22/18 09:08 Dose: Not Given Donepezil HCl (Aricept) 10 mg PO HS [facility] Last Admin: 09/21/18 21:40 Dose: 10 mg Furosemide (Lasix) 20 mg PO DAILY [facility] Last Admin: 09/22/18 09:08 Dose: Not Given Heparin Sodium (Porcine) (Heparin) 5,000 units SC Q8 [facility] Last Admin: 09/22/18 14:04 Dose: 5,000 units Hydralazine HCl (Apresoline) 25 mg PO TID [facility] Last Admin: 09/22/18 17:32 Dose: 25 mg Insulin Aspart (Novolog) 14 unit SC BIDAC [facility] Last Admin: 09/22/18 16:59 Dose: Not Given Insulin Aspart (Novolog) 0 unit SC ACHS [facility]; Protocol Last Admin: 09/22/18 17:33 Dose: 4 unit Insulin Glargine (Lantus) 40 unit SC HS [facility] Last Admin: 09/21/18 21:41 Dose: 40 units Losartan Potassium (Cozaar) 50 mg PO DAILY [facility] Last Admin: 09/22/18 09:08 Dose: Not Given Montelukast Sodium (Singulair) 10 mg PO DAILY [facility] Last Admin: 09/22/18 09:08 Dose: Not Given Rosuvastatin Calcium (Crestor) 5 mg PO HS [facility] Last Admin: 09/21/18 21:40 Dose: 5 mg Sevelamer Carbonate (Renvela) 800 mg PO TIDCC [facility] Last Admin: 09/22/18 17:32 Dose: 800 mg Vitamin B Complex/Vit C/Folic Acid (Nephro-Marina) 1 tab PO DAILY [facility] Last Admin: 09/22/18 09:08 Dose: Not Given - Labs Labs: 09/21/18 07:59 09/22/18 09:36 PT 10.9 SECONDS (9.7-12.2) 09/19/18 01:27 INR 1.0 09/19/18 01:27 APTT 35 SECONDS (21-34) H 09/19/18 01:27 - Constitutional Appears: Well, No Acute Distress, Chronically Ill - Head Exam Head Exam: NORMAL INSPECTION - Eye Exam Eye Exam: Normal appearance Pupil Exam: NORMAL ACCOMODATION - ENT Exam ENT Exam: Normal Exam - Neck Exam Neck Exam: Normal Inspection - Respiratory Exam Respiratory Exam: Clear to Ausculation Bilateral, NORMAL BREATHING PATTERN - Cardiovascular Exam Cardiovascular Exam: REGULAR RHYTHM, Murmur - GI/Abdominal Exam GI & Abdominal Exam: Soft, Normal Bowel Sounds - Rectal Exam Rectal Exam: Deferred - Exam Exam: NORMAL INSPECTION - Extremities Exam Extremities Exam: Normal Inspection - Back Exam Back Exam: NORMAL INSPECTION - Neurological Exam Neurological Exam: Alert, Awake, Oriented x3 - Psychiatric Exam Psychiatric exam: Anxious - Skin Skin Exam: Dry, Intact, Normal Color, Warm Assessment and Plan (1) ESRD needing dialysis Status: Chronic (2) Acute on chronic diastolic heart failure Status: Resolved (3) Poorly controlled diabetes mellitus Status: Chronic (4) Chest pain Status: Resolved
[2018-09-22] MEDS: (Lantus) Insulin Glargine, Recombinant SC SCH (22:03)
--- NOTE | 2018-09-22 22:24 | CP.PCM.PN ---
Subjective - Date & Time of Evaluation Date of Evaluation: 09/22/18 Time of Evaluation: 13:10 - Subjective Subjective: patient has just completed a dialysis session. Patient denies having chest pain. Blood pressure has been elevated . . throughout the morning. Blood sugar under better control. we'll repeat lab studies in a.m. Objective - Vital Signs/Intake and Output Vital Signs (last 24 hours): Temp Pulse Resp BP Pulse Ox 98 F 79 20 152/75 H 100 09/22/18 15:56 09/22/18 16:00 09/22/18 15:56 09/22/18 15:56 09/22/18 15:56 - Medications Medications: Current Medications Acetaminophen (Tylenol 325mg Tab) 650 mg PO Q6 PRN PRN Reason: Pain, Mild (1-3) Last Admin: 09/21/18 21:40 Dose: 650 mg Albuterol Sulfate (Albuterol 0.083% Inhal Luisa (2.5 Mg/3 Ml) Ud) 2.5 mg INH RQ6 [facility] Last Admin: 09/22/18 20:06 Dose: Not Given Aspirin (Aspirin Chewable) 81 mg PO DAILY [facility] Last Admin: 09/22/18 09:08 Dose: Not Given Clopidogrel Bisulfate (Plavix) 75 mg PO DAILY [facility] Last Admin: 09/22/18 09:08 Dose: Not Given Donepezil HCl (Aricept) 10 mg PO HS [facility] Last Admin: 09/22/18 22:03 Dose: 10 mg Furosemide (Lasix) 20 mg PO DAILY [facility] Last Admin: 09/22/18 09:08 Dose: Not Given Heparin Sodium (Porcine) (Heparin) 5,000 units SC Q8 [facility] Last Admin: 09/22/18 22:03 Dose: 5,000 units Hydralazine HCl (Apresoline) 25 mg PO TID [facility] Last Admin: 09/22/18 17:32 Dose: 25 mg Insulin Aspart (Novolog) 14 unit SC BIDAC [facility] Last Admin: 09/22/18 16:59 Dose: Not Given Insulin Aspart (Novolog) 0 unit SC ACHS [facility]; Protocol Last Admin: 09/22/18 21:32 Dose: Not Given Insulin Glargine (Lantus) 40 unit SC HS [facility] Last Admin: 09/22/18 22:03 Dose: 40 units Losartan Potassium (Cozaar) 50 mg PO DAILY [facility] Last Admin: 09/22/18 09:08 Dose: Not Given Montelukast Sodium (Singulair) 10 mg PO DAILY [facility] Last Admin: 09/22/18 09:08 Dose: Not Given Rosuvastatin Calcium (Crestor) 5 mg PO HS [facility] Last Admin: 09/22/18 22:03 Dose: 5 mg Sevelamer Carbonate (Renvela) 800 mg PO TIDCC [facility] Last Admin: 09/22/18 17:32 Dose: 800 mg Vitamin B Complex/Vit C/Folic Acid (Nephro-Marina) 1 tab PO DAILY [facility] Last Admin: 09/22/18 09:08 Dose: Not Given - Labs Labs: 09/21/18 07:59 09/22/18 09:36 PT 10.9 SECONDS (9.7-12.2) 09/19/18 01:27 INR 1.0 09/19/18 01:27 APTT 35 SECONDS (21-34) H 09/19/18 01:27 - Constitutional Appears: Chronically Ill - Head Exam Head Exam: NORMOCEPHALIC - Eye Exam Eye Exam: Normal appearance Pupil Exam: NORMAL ACCOMODATION - ENT Exam ENT Exam: Normal Exam - Neck Exam Neck Exam: Normal Inspection - Respiratory Exam Respiratory Exam: Decreased Breath Sounds - Cardiovascular Exam Cardiovascular Exam: REGULAR RHYTHM - GI/Abdominal Exam GI & Abdominal Exam: Normal Bowel Sounds - Rectal Exam Rectal Exam: Deferred - Exam External exam: NORMAL EXTERNAL EXAM - Extremities Exam Extremities Exam: Normal Inspection - Back Exam Back Exam: NORMAL INSPECTION - Neurological Exam Neurological Exam: Oriented x3 - Psychiatric Exam Psychiatric exam: Depressed - Skin Skin Exam: Dry Assessment and Plan (1) Poorly controlled diabetes mellitus Status: Chronic (2) ESRD needing dialysis Status: Chronic (3) Acute on chronic diastolic heart failure Status: Resolved
[2018-09-23] MEDS: Albuterol 0.083% Inhal Sol (2.5 mg/3 mL) UD INH SCH ×3 (02:00→13:33)
[2018-09-23] MEDS: (Novolog) Insulin Aspart, Recombinant 100 u/ml 10 ml vial SC SCH ×5 (08:21→17:38)
[2018-09-23] MEDS: Multivitamin Vitamin B Complex (Nephro-Vite) Tab PO SCH (09:07)
[2018-09-23 15:40] VITALS: BP 159/53; PULSE 82; TEMP 97.6; O2SAT 99
--- NOTE | 2018-09-23 22:12 | CP.PCM.DIS ---
Provider - Provider Date of Admission: 09/19/18 02:39 Attending physician: Valdez Mccracken MD Consults: 09/19/18 02:40 Nephrology Consult Stat Comment: esrd needing hd, chf Consulting Provider: Kanika Diaz Consulting Physician: Kanika Diaz Reason for Consult: esrd needing hd, chf 09/19/18 09:28 Physician Consult Routine Comment: Consulting Provider: Efren Mei Consulting Physician: Efren Mei Reason for Consult: shortness of breath Time Spent in preparation of Discharge (in minutes): 26 Diagnosis - Discharge Diagnosis (1) Poorly controlled diabetes mellitus Status: Chronic (2) ESRD needing dialysis Status: Chronic (3) Acute on chronic diastolic heart failure Status: Resolved Priority: Medium Hospital Course - Lab Results Lab Results: Most Recent Lab Values WBC 7.1 K/uL (4.8-10.8) 09/21/18 07:59 RBC 3.73 Mil/uL (3.80-5.20) L 09/21/18 07:59 Hgb 10.3 g/dL (11.0-16.0) L 09/21/18 07:59 Hct 31.6 % (34.0-47.0) L 09/21/18 07:59 MCV 84.8 fL (81.0-99.0) 09/21/18 07:59 MCH 27.7 pg (27.0-31.0) 09/21/18 07:59 MCHC 32.7 g/dL (33.0-37.0) L 09/21/18 07:59 RDW 17.4 % (11.5-14.5) H 09/21/18 07:59 Plt Count 261 K/uL (130-400) 09/21/18 07:59 MPV 9.5 fL (7.2-11.7) 09/21/18 07:59 Neut % (Auto) 56.3 % (50.0-75.0) 09/21/18 07:59 Lymph % (Auto) 26.1 % (20.0-40.0) 09/21/18 07:59 [place] % (Auto) 13.2 % (0.0-10.0) H 09/21/18 07:59 Eos % (Auto) 3.9 % (0.0-4.0) 09/21/18 07:59 Baso % (Auto) 0.5 % (0.0-2.0) 09/21/18 07:59 Neut # (Auto) 4.0 K/uL (1.8-7.0) 09/21/18 07:59 Lymph # (Auto) 1.9 K/uL (1.0-4.3) 09/21/18 07:59 [place] # (Auto) 0.9 K/uL (0.0-0.8) H 09/21/18 07:59 Eos # (Auto) 0.3 K/uL (0.0-0.7) 09/21/18 07:59 Baso # (Auto) 0.0 K/uL (0.0-0.2) 09/21/18 07:59 Neutrophils % (Manual) 83 % (50-75) H 09/19/18 01:27 Lymphocytes % (Manual) 8 % (20-40) L 09/19/18 01:27 Monocytes % (Manual) 8 % (0-10) 09/19/18 01:27 Basophils % (Manual) 1 % (0-2) 09/19/18 01:27 Platelet Estimate Normal (NORMAL) 09/19/18 01:27 Poikilocytosis (manual Slight 09/19/18 01:27 Anisocytosis (manual) Slight 09/19/18 01:27 PT 10.9 SECONDS (9.7-12.2) 09/19/18 01:27 INR 1.0 09/19/18 01:27 APTT 35 SECONDS (21-34) H 09/19/18 01:27 Sodium 136 mmol/L (132-148) 09/22/18 09:36 Potassium 4.3 mmol/L (3.6-5.2) 09/22/18 09:36 Chloride 99 mmol/L (98-107) 09/22/18 09:36 Carbon Dioxide 24 mmol/L (22-30) 09/22/18 09:36 Anion Gap 18 (10-20) 09/22/18 09:36 BUN 72 mg/dL (7-17) H 09/22/18 09:36 Creatinine 4.3 mg/dL (0.7-1.2) H 09/22/18 09:36 Est GFR ( Amer) 12 09/22/18 09:36 Est GFR (Non-Af Amer) 10 09/22/18 09:36 POC Glucose (mg/dL) 258 mg/dL (65-110) H 09/23/18 16:22 Random Glucose 297 mg/dL (65-105) H 09/22/18 09:36 Calcium 9.3 mg/dl (8.6-10.4) 09/22/18 09:36 Phosphorus 4.0 mg/dL (2.5-4.5) 09/20/18 06:22 Magnesium 2.1 mg/dL (1.6-2.3) 09/20/18 06:22 Total Bilirubin 0.4 mg/dL (0.2-1.3) 09/22/18 09:36 AST 32 U/L (14-36) 09/22/18 09:36 ALT 27 U/L (9-52) 09/22/18 09:36 Alkaline Phosphatase 124 U/L (38-126) 09/22/18 09:36 Total Creatine Kinase 128 U/L (30-135) 09/19/18 22:00 CK-MB (Mass) 1.80 ng/mL (0.0-3.38) 09/19/18 22:00 Troponin I 0.0860 ng/mL (0.00-0.120) 09/21/18 07:59 NT-Pro-B Natriuret Pep 04764 pg/mL (0-900) H 09/19/18 01:27 Total Protein 6.2 g/dL (6.3-8.3) L 09/22/18 09:36 Albumin 3.4 g/dL (3.5-5.0) L 09/22/18 09:36 Globulin 2.8 gm/dL (2.2-3.9) 09/22/18 09:36 Albumin/Globulin Ratio 1.2 (1.0-2.1) 09/22/18 09:36 Triglycerides 116 mg/dL (0-149) D 09/21/18 07:59 Cholesterol 160 mg/dL (0-199) 09/21/18 07:59 Discharge Exam - Head Exam Head Exam: NORMOCEPHALIC - Eye Exam Eye Exam: Normal appearance Pupil Exam: NORMAL ACCOMODATION - ENT Exam ENT Exam: Normal Exam - Neck Exam Neck exam: Normal Inspection - Respiratory Exam Respiratory Exam: Decreased Breath Sounds - Cardiovascular Exam Cardiovascular Exam: REGULAR RHYTHM - GI/Abdominal Exam GI & Abdominal Exam: Normal Bowel Sounds - Rectal Exam Rectal Exam: Deferred - Exam External exam: NORMAL EXTERNAL EXAM - Extremities Exam Extremities exam: normal inspection - Back Exam Back exam: NORMAL INSPECTION - Neurological Exam Neurological exam: Altered - Psychiatric Exam Psychiatric exam: Depressed - Skin Skin Exam: Dry Discharge Plan - Discharge Medications Prescriptions: hydrALAZINE [Apresoline] 25 mg PO TID #90 tab Losartan [Cozaar] 50 mg PO DAILY #30 tab - Follow Up Plan Condition: GUARDED Disposition: HOME/ ROUTINE Patient education suggested?: Yes Instructions: Heart Healthy Diet, Diabetes Exchange Diet, Heart Failure, Adult (DC), Diabetes Diet , End Stage Kidney Disease (DC), Dialysis and Diet, Altered Mental Status (GEN) Additional Instructions: Please follow up with Dr. Mccracken office in 1 week Please continue all home medications Please continue to check your blood sugar TID Please lease picker medication from pharmacy 1 new medication and increase dose (hydralaZINE). Referrals: Valdez Mccracken MD [Staff Provider] -
--- NOTE | 2018-09-24 08:24 | PCM.HF ---
Heart Failure Core Measure - Heart Failure Ejection Fraction: 40 % or Greater ADORE Inhibitor Prescribed: No Contraindication/Reason for not providing: on adore Beta-Soraya Prescribed: None Contraindication/Reason for not providing: copd Angiotensin II Receptor Soraya Prescribed: Yes AnticoagulationTherapy for Atrial Fibrillation/Atrialflutter: No Contraindication/Reason for not providing: no hx of a fib Aldosterone Antagonist Prescribed: No Contraindication/Reason for not providing: ESRD Hydralazine Nitrate Prescribed: Yes Implantable Cardioverter Defibrillator Therapy: No Contraindication/Reason for not providing: ef>45 Cardiac Resynchronization Therapy Prescribed: No Contraindication/Reason for not providing: ef>45 - Follow up Will be discharged to: Home Follow Up Date (must be within 7 days from discharge): 09/26/18 Follow Up Time: 08:00
== END 2018-09-23 18:07 | disposition home or self-care (01) | DRG 291 ==
LOC: C.ER 00:40 → C.6T 02:39
PROVIDERS: ADMIT Internal Medicine; ATTEND Internal Medicine
PROC: 5A1D70Z Performance of Urinary Filtration, Intermittent, Less than 6 Hours Per Day (ICD-10-PCS; principal; 2018-09-19)
PROC: 5A1D70Z Performance of Urinary Filtration, Intermittent, Less than 6 Hours Per Day (ICD-10-PCS; 2018-09-22)
DX: I13.2 Hypertensive heart and chronic kidney disease with heart failure and with stage 5 chronic kidney disease, or end stage renal disease (principal); I50.33 Acute on chronic diastolic (congestive) heart failure; N18.6 End stage renal disease; E11.65 Type 2 diabetes mellitus with hyperglycemia; D63.1 Anemia in chronic kidney disease; E11.22 Type 2 diabetes mellitus with diabetic chronic kidney disease; G47.00 Insomnia, unspecified; J43.9 Emphysema, unspecified; K21.9 Gastro-esophageal reflux disease without esophagitis; F03.90 Unspecified dementia, unspecified severity, without behavioral disturbance, psychotic disturbance, mood disturbance, and anxiety; E78.00 Pure hypercholesterolemia, unspecified; H54.62 Unqualified visual loss, left eye, normal vision right eye; Z99.2 Dependence on renal dialysis; Z79.4 Long term (current) use of insulin; Z86.73 Personal history of transient ischemic attack (TIA), and cerebral infarction without residual deficits; Z87.440 Personal history of urinary (tract) infections

== ENCOUNTER 2018-10-27 08:03 | Inpatient (IN) | payer OTHER ==
[2018-10-27 08:12] VITALS: BMI 21.4
--- NOTE | 2018-10-27 08:19 | C.PDOC ---
History Of Present Illness 82 y/o female, w/PMhx of ESRD, CHF, HTN, diabetes, and dementia, brought to ER from dialysis center for evaluation of high blood sugar levels. As per family, patient has been " shaky". Family reports that she went to the dialysis center today. At the time, the nurse found that pt had high blood sugar levels so was advised to go the ER. As per daughter, pt is able to urinate at baseline. Pt denies having pain,headache, fever, and chills. Time Seen by Provider: 10/27/18 08:08 Chief Complaint (Nursing): Abnormal Labs History Per: Patient, Family Onset/Duration Of Symptoms: Days Current Symptoms Are (Timing): Still Present Severity: Moderate Past Medical History Reviewed: Historical Data, Nursing Documentation, Vital Signs Vital Signs: Last Vital Signs Temp 97.8 F 10/27/18 08:11 Pulse 87 10/27/18 08:11 Resp 20 10/27/18 08:11 BP 146/89 10/27/18 08:11 Pulse Ox 98 10/27/18 08:11 - Medical History PMH: Anxiety, Arthritis, Asthma, Bronchitis, Cardia Arrhythmia, CHF, COPD, Dementia, Depression, Diabetes (type 2), Emphysema, Fractures, HTN, Hypercholesterolemia, Migraine, End Stage Renal Disease, Chronic Kidney Disease, TIA Other Surgeries: Hx of surgeries - [facility] Procedures (09/19/18) ASSISTANCE WITH RESPIRATORY VENTILATION, 24-96 HRS, CPAP (11/01/16) INSERTION OF INFUSION DEV INTO INF VENA CAVA, PERC APPROACH (10/06/15) PERFORMANCE OF URINARY FILTRATION, MULTIPLE (12/24/16) PERFORMANCE OF URINARY FILTRATION, SINGLE (11/01/16) Family History: States: No Known Family Hx - Social History Hx Tobacco Use: No Hx Alcohol Use: No Hx Substance Use: No - Immunization History Hx Tetanus Toxoid Vaccination: Yes Hx Influenza Vaccination: Yes (06/2015) Hx Pneumococcal Vaccination: Yes (2014) Review Of Systems Except As Marked, All Systems Reviewed And Found Negative. Constitutional: Negative for: Fever, Chills Cardiovascular: Negative for: Chest Pain Respiratory: Negative for: Shortness of Breath Neurological: Negative for: Headache Physical Exam - Physical Exam Skin: Normal Color, Warm, Dry Head: Atraumatic, Normacephalic Eye(s): bilateral: Normal Inspection Nose: Normal Oral Mucosa: Moist Neck: Supple Chest: Symmetrical Cardiovascular: Rhythm Regular Respiratory: Rales (rales at bases), No Rhonchi, No Wheezing Gastrointestinal/Abdominal: Soft, No Tenderness, No Guarding, No Rebound Neurological/Psych: Other (no focal deficits) ED Course And Treatment - Laboratory Results Result Diagrams: 10/27/18 08:51 10/27/18 10:00 ECG: Interpreted By Me, Viewed By Me ECG Rhythm: Sinus Rhythm Interpretation Of ECG: NSR with non-specific ST/ T wave changes and poor trace secondary to artifact Rate From EC O2 Sat by Pulse Oximetry: 98 (RA) Pulse Ox Interpretation: Normal - Other Rad CXR X-Ray: Viewed By Me, Read By Radiologist Interpretation: Date of service: 10/27/2018. HISTORY: chest pain. COMPARISON: Portable chest 09/19/2018. FINDINGS: LUNGS: Diminished airspace disease seen at the right infrahilar space left lung clear. PLEURA: No significant pleural effusion identified, no pneumothorax apparent. CARDIOVASCULAR: No aortic atherosclerotic calcification present. Vascular dariel nt reiterated medial right apex. Cardiomegaly stable. No pulmonary vascular congestion. OSSEOUS STRUCTURES: No significant abnormalities. VISUALIZED UPPER ABDOMEN: Normal. OTHER FINDINGS: None. IMPRESSION: Stable cardiomegaly. Diminished infiltrate medial right base with left chest clear. - CT Scan/US CT-Head Other Rad Studies (CT/US): Read By Radiologist, Radiology Report Reviewed CT/US Interpretation: Date of service: 10/27/2018. PROCEDURE: CT HEAD WITHOUT CONTRAST. HISTORY: Altered mental status. COMPARISON: 08/12/2018. TECHNIQUE: Axial computed tomography images were obtained through the head/brain without intravenous contrast. Radiation dose: Total exam DLP = 1053.12 mGy-cm. This CT exam was performed using one or more of the following dose reduction techniques: Automated exposure control, adjustment of the mA and/or kV according to patient size, and/or use of iterative reconstruction technique. FINDINGS: HEMORRHAGE: No intracranial hemorrhage. BRAIN: No mass effect or edema. Scattered focal lucencies in the subcortical and periventricular white matter suggestive for chronic microvascular ischemic change. Bilateral basal ganglia calcifications. VENTRICLES: Unremarkable. No hydrocephalus. CALVARIUM: Unremarkable. PARANASAL SINUSES: Unremarkable as visualized. No significant inflammatory changes. MASTOID AIR CELLS: Partial opacification of the bilateral mastoid air cells. OTHER FINDINGS: Ocular calcifications. Intracranial arterial calcifications. IMPRESSION: No acute intracranial abnormality. Additional findings as above. If symptoms persists, consider correlation with MRI. Medical Decision Making Medical Decision Making: ro dka, honk, sepsis, itnracranial pathology Plan: --Labs --CXR --Flu Swab labs with marked LA. ivf bolus iniated. empric antibiotisc given in case sepsiss. no e/o of dka but osm elevated. insuin started. accepted icu and pmd michael. dr medina to arrange hd. Disposition - Disposition Disposition: HOSPITALIZED Disposition Time: 13:05 Condition: STABLE - Clinical Impression Clinical Impression: Hyperosmolar non-ketotic state in patient with type 2 diabetes mellitus, ESRD (end stage renal disease), Lactic acidosis - Scribe Statement The provider has reviewed the documentation as recorded by the Scribe Alie Tam Provider Attestation: All medical record entries made by the Scribe were at my direction and personally dictated by me. I have reviewed the chart and agree that the record accurately reflects my personal performance of the history, physical exam, medical decision making, and the department course for this patient. I have also personally directed, reviewed, and agree with the discharge instructions and disposition. Decision To Admit - . Bed Request Type: ICU Admitting Physician: Valdez Mccracken Patient Diagnosis: Hyperosmolar non-ketotic state in patient with type 2 diabetes mellitus, ESRD (end stage renal disease), Lactic acidosis
[2018-10-27 08:54] LABS: VENOUS BLOOD GAS BASE EXCESS -0.5 mmol/L (0.0-2.0); VENOUS BLOOD GAS PCO2 51 mmHg (40-60); VENOUS BLOOD GAS PO2 24 mm/Hg (30-55); VENOUS BLOOD PH 7.32 (7.32-7.43)
[2018-10-27] MEDS ORDERED: Piperacillin/Tazobact 3.375 gm 100 ML IVPB STA (08:54)
[2018-10-27 08:59] LABS: LYMPH # 0.4 K/uL (1.0-4.3); MONO # 0.4 K/uL (0.0-0.8); RED CELL DISTRIBUTION WIDTH 18.5 % (11.5-14.5)
[2018-10-27 09:06] LABS: BASO % 0.1 % (0.0-2.0); LYMPH % 3.6 % (20.0-40.0); MEAN CORPUSCULAR HEMOGLOBIN 27.7 pg (27.0-31.0); MEAN CORPUSCULAR HGB CONC 31.4 g/dL (33.0-37.0); MEAN PLATELET VOLUME 10.9 fL (7.2-11.7); NEUT # 11.1 K/uL (1.8-7.0); NEUT % 93.3 % (50.0-75.0); PLATELET COUNT 287 K/uL (130-400); RBC 4.63 Mil/uL (3.80-5.20)
[2018-10-27 09:07] LABS: HEMOGLOBIN 12.9 g/dL (11.0-16.0); MEAN CELL VOLUME 88.3 fL (81.0-99.0); WHITE BLOOD COUNT 11.9 K/uL (4.8-10.8)
[2018-10-27] MEDS ORDERED: Piperacillin/Tazobact 3.375 gm 100 ML IVPB ONE (09:13)
--- NOTE | 2018-10-27 09:20 | RAD ---
Date of service: 10/27/2018 HISTORY: chest pain COMPARISON: Portable chest 09/19/2018. FINDINGS: LUNGS: Diminished airspace disease seen at the right infrahilar space left lung clear. PLEURA: No significant pleural effusion identified, no pneumothorax apparent. CARDIOVASCULAR: No aortic atherosclerotic calcification present. Vascular stent reiterated medial right apex. Cardiomegaly stable. No pulmonary vascular congestion. OSSEOUS STRUCTURES: No significant abnormalities. VISUALIZED UPPER ABDOMEN: Normal. OTHER FINDINGS: None. IMPRESSION: Stable cardiomegaly. Diminished infiltrate medial right base with left chest clear.
[2018-10-27] MEDS ORDERED: Sodium Chloride 0.9% 500 ML IV ONE (09:21)
[2018-10-27 09:47] LABS: ANISOCYTOSIS MODERATE; LYMPHOCYTE 3 % (20-40); MONOCYTE 3 % (0-10); NEUTROPHIL 94 % (50-75); PLATELET ESTIMATE NORMAL (NORMAL); TOTAL CELLS COUNTED 100
[2018-10-27 09:48] LABS: BURR CELLS SLIGHT; OVALOCYTES SLIGHT; POIKILOCYTOSIS SLIGHT; TARGET CELLS SLIGHT
--- NOTE | 2018-10-27 10:16 | CT ---
Date of service: 10/27/2018 PROCEDURE: CT HEAD WITHOUT CONTRAST. HISTORY: Altered mental status COMPARISON: 08/12/2018 TECHNIQUE: Axial computed tomography images were obtained through the head/brain without intravenous contrast. Radiation dose: Total exam DLP = 1053.12 mGy-cm. This CT exam was performed using one or more of the following dose reduction techniques: Automated exposure control, adjustment of the mA and/or kV according to patient size, and/or use of iterative reconstruction technique. FINDINGS: HEMORRHAGE: No intracranial hemorrhage. BRAIN: No mass effect or edema. Scattered focal lucencies in the subcortical and periventricular white matter suggestive for chronic microvascular ischemic change. Bilateral basal ganglia calcifications. VENTRICLES: Unremarkable. No hydrocephalus. CALVARIUM: Unremarkable. PARANASAL SINUSES: Unremarkable as visualized. No significant inflammatory changes. MASTOID AIR CELLS: Partial opacification of the bilateral mastoid air cells. OTHER FINDINGS: Ocular calcifications. Intracranial arterial calcifications. IMPRESSION: No acute intracranial abnormality. Additional findings as above. If symptoms persists, consider correlation with MRI.
[2018-10-27 10:35] LABS: SQUAMOUS EPITHIAL < 1 /hpf (0-5); URINE BILIRUBIN NEGATIVE (NEGATIVE); URINE CLARITY Clear (Clear); URINE COLOR Yellow (YELLOW); URINE GLUCOSE (UA) 3+ mg/dL (Normal); URINE PROTEIN 3+ mg/dL (NEGATIVE); URINE UROBILINOGEN NORMAL mg/dL (0.2-1.0)
[2018-10-27 10:36] LABS: URINE BLOOD TRACE (NEGATIVE); URINE LEUKOCYTE ESTERASE TRACE Leu/uL (Negative)
[2018-10-27 10:37] LABS: ALB/GLOB RATIO 1.4 (1.0-2.1); ALBUMIN 4.4 g/dL (3.5-5.0); CALCIUM 10.6 mg/dl (8.6-10.4)
[2018-10-27 10:40] LABS: TROPONIN I 0.09 ng/mL (0.00-0.120)
[2018-10-27] MEDS ORDERED: Insulin Human Regular 100 UNIT in Sodium Chloride 0.9% 99 ML IV SCH (10:45)
[2018-10-27] MEDS ORDERED: Vancomycin 1 GM 1 GM/250 ML BAG IVPB ONE (10:50)
[2018-10-27] MEDS ORDERED: (Novolin R) Insulin Human Regular 100 units/ml vial IVP STA (11:05)
[2018-10-27] MEDS ORDERED: (Novolin R) Insulin Human Regular 100 units/ml vial ONE (11:10)
[2018-10-27 13:21] LABS: PROTHROMBIN TIME 11.3 SECONDS (9.7-12.2)
--- NOTE | 2018-10-27 14:17 | CP.PCM.CON ---
History of Present Illness - History of Present Illness History of Present Illness: PGY-1 ICU consult note for Dr Hubert Genao service cc: Hyperglycemia Patient is a 82 year old female with pmhx of ESRD on HD MWF, CHF, HTN, DM, asthma/emphysema, anxiety and dementia that was sent from dialysis center this morning before getting her HD session due to her sugar levels were elavted. As per daannether at bedside, patient's blood sugar was under control before leaving the house to HD center, and patient had one bottle of ensure in the morning. Daugther states this weekend, patient has been more weak than usual. At HD center, glucose was on the 400s, patient was advised to come to the ED. Patient was noted to be shaky today, with nausea, and chills, but no fevers. No shortness of breath or chest pain reported, as per daugther. At ED, patient random glucose was found to be 677, elevated lactic acid to 6/1, normal pH. Patient was given 8 Units of IV insulin in ED and antibiotics in the case of sepsis, transferred to ICU for monitoring of glucose level, as well as for patient to get dialysis session at unit. no other ROS unttainable from pt due to patient's not responding, 2/2 to dementia. PMD: Dr Mccracken ALL: NKDA Pmhx: as stated in HPI Shx: AV fistula Fmhx: DM (mother and father) Sochx: denies tobacco, alcohol or drug use Meds: see records. Review of Systems - Review of Systems Systems not reviewed;Unavailable: Dementia Past Patient History - Infectious Disease Hx of Infectious Diseases: None - Tetanus Immunizations Tetanus Immunization: Unknown, Up to Date - Past Medical History & Family History Past Medical History?: Yes - Past Social History Smoking Status: Never Smoked - CARDIAC Hx Cardia Arrhythmia: Yes Hx Congestive Heart Failure: Yes Hx Hypercholesterolemia: Yes Hx Hypertension: Yes - PULMONARY Hx Asthma: Yes Hx Bronchitis: Yes Hx Chronic Obstructive Pulmonary Disease (COPD): Yes Hx Emphysema: Yes - NEUROLOGICAL Hx Dementia: Yes Hx Migraine: Yes Hx Transient Ischemic Attacks (TIA): Yes - HEENT Hx HEENT Problems: Yes Hx Blind: Yes (Left eye.) - RENAL Hx Chronic Kidney Disease: Yes - ENDOCRINE/METABOLIC Hx Endocrine Disorders: Yes Hx Diabetes Mellitus Type 2: Yes - HEMATOLOGICAL/ONCOLOGICAL Hx Blood Disorders: No - INTEGUMENTARY Hx Dermatological Problems: Yes Hx Cellulitis: Yes Hx Eczema: Yes - MUSCULOSKELETAL/RHEUMATOLOGICAL Hx Arthritis: Yes Hx Fractures: Yes - GASTROINTESTINAL Hx Gastrointestinal Disorders: Yes Hx Gastroesophageal Reflux: Yes Hx Hemorrhoids: Yes - GENITOURINARY/GYNECOLOGICAL Hx Genitourinary Disorders: Yes Hx Urinary Tract Infection: Yes - PSYCHIATRIC Hx Anxiety: Yes Hx Depression: Yes Hx Substance Use: No - SURGICAL HISTORY Hx Surgeries: Yes Hx Arteriovenous Shunt: Yes (right arm) - ANESTHESIA Hx Anesthesia: Yes Hx Anesthesia Reactions: No Hx Malignant Hyperthermia: No Meds Allergies/Adverse Reactions: Allergies Allergy/AdvReac Type Severity Reaction Status Date / Time No Known Allergies Allergy Verified 10/27/18 08:11 - Medications Medications: Current Medications Heparin Sodium (Porcine) (Heparin) 5,000 units SC Q12 [facility] Heparin Sodium (Porcine) (Heparin) 2,000 units IVP MWF [facility] Physical Exam - Constitutional Appears: No Acute Distress - Head Exam Head Exam: ATRAUMATIC, NORMAL INSPECTION, NORMOCEPHALIC - Eye Exam Eye Exam: EOMI, Normal appearance - ENT Exam ENT Exam: Mucous Membranes Dry - Neck Exam Neck exam: Positive for: Full Rom - Respiratory Exam Respiratory Exam: Clear to Auscultation Bilateral, NORMAL BREATHING PATTERN. absent: Rales, Rhonchi, Wheezes - Cardiovascular Exam Cardiovascular Exam: REGULAR RHYTHM, +S1, +S2 - GI/Abdominal Exam GI & Abdominal Exam: Soft - Extremities Exam Extremities exam: Positive for: normal inspection - Neurological Exam Additional comments: Oriented x 2 - Psychiatric Exam Psychiatric exam: Flat Affect - Skin Skin Exam: Dry, Normal Color, Warm Results - Vital Signs Recent Vital Signs: Last Vital Signs Temp 97.6 F 10/27/18 12:21 Pulse 88 10/27/18 14:00 Resp 18 10/27/18 14:00 BP 200/83 H 10/27/18 13:29 Pulse Ox 98 10/27/18 14:00 - Labs Result Diagrams: 10/27/18 18:20 10/27/18 18:20 Labs: Laboratory Results - last 24 hr 10/27/18 10/27/18 10/27/18 08:10 08:49 08:50 WBC RBC Hgb Hct MCV MCH MCHC RDW Plt Count MPV Neut % (Auto) Lymph % (Auto) [place] % (Auto) Eos % (Auto) Baso % (Auto) Neut # (Auto) Lymph # (Auto) [place] # (Auto) Eos # (Auto) Baso # (Auto) Neutrophils % (Manual) Lymphocytes % (Manual) Monocytes % (Manual) Eosinophils % (Manual) Platelet Estimate Poikilocytosis (manual Anisocytosis (manual) Target Cells Ovalocytes Kirk Cells PT INR APTT pO2 24 L VBG pH 7.32 VBG pCO2 51 VBG HCO3 22.9 VBG Total CO2 27.9 VBG O2 Sat (Calc) 39.6 L VBG Base Excess -0.5 L VBG Potassium 4.5 Sodium 147.0 Chloride 106.0 Glucose > 750 H* Lactate 6.1 H* Crit Value Called To Dr ferreira Crit Value Called By Lele hamilton manager truck Crit Value Read Back Y Blood Gas Notified Time 854 Potassium Carbon Dioxide Anion Gap BUN Creatinine Est GFR ( Amer) Est GFR (Non-Af Amer) POC Glucose (mg/dL) > 500 H* Random Glucose Serum Osmolality Lactic Acid Calcium Total Bilirubin AST ALT Alkaline Phosphatase Troponin I Total Protein Albumin Globulin Albumin/Globulin Ratio Venous Blood Potassium 4.5 Urine Color Urine Clarity Urine pH Ur Specific [place] Urine Protein Urine Glucose (UA) Urine Ketones Urine Blood Urine Nitrate Urine Bilirubin Urine Urobilinogen Ur Leukocyte Esterase Urine WBC (Auto) Urine RBC (Auto) Ur Squamous Epith Cells B-Hydroxybutyrate Influenza Typ A,B (EIA) Negative for flu a/b 10/27/18 10/27/18 10/27/18 08:51 10:00 10:00 WBC 11.9 H D RBC 4.63 Hgb 12.9 D Hct 40.9 MCV 88.3 D MCH 27.7 MCHC 31.4 L RDW 18.5 H Plt Count 287 MPV 10.9 Neut % (Auto) 93.3 H Lymph % (Auto) 3.6 L [place] % (Auto) 3.0 Eos % (Auto) 0.0 Baso % (Auto) 0.1 Neut # (Auto) 11.1 H Lymph # (Auto) 0.4 L [place] # (Auto) 0.4 Eos # (Auto) 0.0 Baso # (Auto) 0.0 Neutrophils % (Manual) 94 H Lymphocytes % (Manual) 3 L Monocytes % (Manual) 3 Eosinophils % (Manual) TEST NOT PERFORMED Platelet Estimate Normal Poikilocytosis (manual Slight Anisocytosis (manual) Moderate Target Cells Slight Ovalocytes Slight Kirk Cells Slight PT INR APTT pO2 VBG pH VBG pCO2 VBG HCO3 VBG Total CO2 VBG O2 Sat (Calc) VBG Base Excess VBG Potassium Sodium 144 Chloride 102 Glucose Lactate Crit Value Called To Crit Value Called By Crit Value Read Back Blood Gas Notified Time Potassium 3.9 Carbon Dioxide 23 Anion Gap 23 H BUN 79 H Creatinine 4.9 H Est GFR ( Amer) 10 Est GFR (Non-Af Amer) 8 POC Glucose (mg/dL) Random Glucose 677 H* D Serum Osmolality 368 H Lactic Acid Calcium 10.6 H Total Bilirubin 0.6 AST 24 ALT 12 Alkaline Phosphatase 173 H D Troponin I 0.0900 Total Protein 7.4 Albumin 4.4 Globulin 3.0 Albumin/Globulin Ratio 1.4 Venous Blood Potassium Urine Color Urine Clarity Urine pH Ur Specific [place] Urine Protein Urine Glucose (UA) Urine Ketones Urine Blood Urine Nitrate Urine Bilirubin Urine Urobilinogen Ur Leukocyte Esterase Urine WBC (Auto) Urine RBC (Auto) Ur Squamous Epith Cells B-Hydroxybutyrate 0.40 H Influenza Typ A,B (EIA) 10/27/18 10/27/18 10/27/18 10:27 11:35 12:09 WBC RBC Hgb Hct MCV MCH MCHC RDW Plt Count MPV Neut % (Auto) Lymph % (Auto) [place] % (Auto) Eos % (Auto) Baso % (Auto) Neut # (Auto) Lymph # (Auto) [place] # (Auto) Eos # (Auto) Baso # (Auto) Neutrophils % (Manual) Lymphocytes % (Manual) Monocytes % (Manual) Eosinophils % (Manual) Platelet Estimate Poikilocytosis (manual Anisocytosis (manual) Target Cells Ovalocytes Syed Cells PT INR APTT pO2 VBG pH VBG pCO2 VBG HCO3 VBG Total CO2 VBG O2 Sat (Calc) VBG Base Excess VBG Potassium Sodium Chloride Glucose Lactate Crit Value Called To Crit Value Called By Crit Value Read Back Blood Gas Notified Time Potassium Carbon Dioxide Anion Gap BUN Creatinine Est GFR ( Amer) Est GFR (Non-Af Amer) POC Glucose (mg/dL) > 500 H* > 500 H* Random Glucose Serum Osmolality Lactic Acid Calcium Total Bilirubin AST ALT Alkaline Phosphatase Troponin I Total Protein Albumin Globulin Albumin/Globulin Ratio Venous Blood Potassium Urine Color Yellow Urine Clarity Clear Urine pH 6.0 Ur Specific [place] 1.015 Urine Protein 3+ H Urine Glucose (UA) 3+ H Urine Ketones Trace Urine Blood Trace Urine Nitrate Negative Urine Bilirubin Negative Urine Urobilinogen Normal Ur Leukocyte Esterase Trace Urine WBC (Auto) 14 H Urine RBC (Auto) 10 H Ur Squamous Epith Cells < 1 B-Hydroxybutyrate Influenza Typ A,B (EIA) 10/27/18 10/27/18 10/27/18 12:20 12:57 13:04 WBC RBC Hgb Hct MCV MCH MCHC RDW Plt Count MPV Neut % (Auto) Lymph % (Auto) [place] % (Auto) Eos % (Auto) Baso % (Auto) Neut # (Auto) Lymph # (Auto) [place] # (Auto) Eos # (Auto) Baso # (Auto) Neutrophils % (Manual) Lymphocytes % (Manual) Monocytes % (Manual) Eosinophils % (Manual) Platelet Estimate Poikilocytosis (manual Anisocytosis (manual) Target Cells Ovalocytes Syed Cells PT 11.3 INR 1.0 APTT 27 pO2 VBG pH VBG pCO2 VBG HCO3 VBG Total CO2 VBG O2 Sat (Calc) VBG Base Excess VBG Potassium Sodium Chloride Glucose Lactate Crit Value Called To Crit Value Called By Crit Value Read Back Blood Gas Notified Time Potassium Carbon Dioxide Anion Gap BUN Creatinine Est GFR ( Amer) Est GFR (Non-Af Amer) POC Glucose (mg/dL) 451 H* Random Glucose Serum Osmolality Lactic Acid 4.4 H* Calcium Total Bilirubin AST ALT Alkaline Phosphatase Troponin I Total Protein Albumin Globulin Albumin/Globulin Ratio Venous Blood Potassium Urine Color Urine Clarity Urine pH Ur Specific [place] Urine Protein Urine Glucose (UA) Urine Ketones Urine Blood Urine Nitrate Urine Bilirubin Urine Urobilinogen Ur Leukocyte Esterase Urine WBC (Auto) Urine RBC (Auto) Ur Squamous Epith Cells B-Hydroxybutyrate Influenza Typ A,B (EIA) Assessment & Plan - Assessment and Plan (Free Text) Plan: Patient is a 82 year old female with pmhx of ESRD on MWF HD, DMII, dementia, CHF, HTN came to ED for elevated blood sugars noticed at HD, in ED found to have Hyperosmolar non ketotic state with blood sugar more than 500 and elevated lactic acid, no DKA but osm elevated, patient transfer to ICU 1/21 to initiate HD and to manage blood glucose and lactic levels Neuro AAOx2 hx of dementia As per daughter = patient does not take Arizept anymore Cardio Hx of HTN- continue home hydralazine, coozar, enalapril hx of HLD - crestor 5mg PO HS Continue to monitor vitals/tele hypotensive - NS 500ml @ 100 mls/hr start home meds tomorrow monitor BP cont ASA and plavix Pulm hx of COPD/asthma/emphysema Albuterol PRN Q6H Singulair GI Diabetic consistent carb diet Renal Lactic acid improved repeat labs, repeat VBG HD session today Nephro consult - Dr Diaz f/u labs post HD f/u am labs Endo Glucose at ED above 500 Insulin 8 units IVP STAT in ED ISS SC Q4H accuchecks Q4H Hypoglycemia protocol ID WBC 11.9, afebrile f/u blood culture Zosyn and Vanc x 1 given in ED f/u am labs ppx: DVT: heparin SC 5000 Q12H, heparin 2000 MWF GI: not indicated ASA Plan discussed with Dr Birgit Crabtree, PGY-1 - Date & Time Date: 10/27/18 Time: 12:00
[2018-10-27] MEDS ORDERED: Glucagon Recombinant 1 mg Inj IM PRN (14:47)
[2018-10-27] MEDS ORDERED: Dextrose 50% SYRINGE Inj (50 ml) IV PRN (14:47)
[2018-10-27] MEDS: (Novolin R) Insulin Human Regular 100 units/ml vial SC SCH ×3 (15:50→23:18)
[2018-10-27] MEDS ORDERED: Albuterol 0.083% Inhal Sol (2.5 mg/3 mL) UD INH PRN (16:33)
[2018-10-27 18:24] LABS: MONO # 1.1 K/uL (0.0-0.8); WHITE BLOOD COUNT 17.2 K/uL (4.8-10.8)
[2018-10-27 18:29] LABS: VENOUS BLOOD GAS BASE EXCESS -1.4 mmol/L (0.0-2.0); VENOUS BLOOD GAS PCO2 26 mmHg (40-60); VENOUS BLOOD GAS PO2 92 mm/Hg (30-55)
[2018-10-27 18:31] LABS: BASO % 0.1 % (0.0-2.0); HEMOGLOBIN 12.9 g/dL (11.0-16.0); LYMPH % 5.9 % (20.0-40.0); MEAN CELL VOLUME 83.9 fL (81.0-99.0); MEAN CORPUSCULAR HEMOGLOBIN 26.6 pg (27.0-31.0); MEAN CORPUSCULAR HGB CONC 31.7 g/dL (33.0-37.0); MEAN PLATELET VOLUME 9.5 fL (7.2-11.7); MONO % 6.5 % (0.0-10.0); NEUT # 15.1 K/uL (1.8-7.0); NEUT % 87.5 % (50.0-75.0); NRBC % 0.1 % (0.0-2.0); PLATELET COUNT 239 K/uL (130-400); RBC 4.85 Mil/uL (3.80-5.20); RED CELL DISTRIBUTION WIDTH 18.1 % (11.5-14.5)
[2018-10-27 18:44] LABS: ALB/GLOB RATIO 1.4 (1.0-2.1); ALBUMIN 4.3 g/dL (3.5-5.0); CALCIUM 9.7 mg/dl (8.6-10.4)
--- NOTE | 2018-10-27 19:08 | CP.PCM.HP ---
History of Present Illness - History of Present Illness History of Present Illness: 82 -year-old female who is under treatment end-stage renal disease and goes to dialysis 3 times a week became shaky this am. Blood sugar was found to be 477 at the dialysis center. Patient was advise to go to the [facility] emergency room. Blood sugar at the hospital was 710. She was given 8 units of insulin IV and advised admission. past history includes numerous admissions for uncontrolled diabetes, congestive heart failure, degenerative joint disease, impacted right shoulder, and pneumonia. Present on Admission - Present on Admission Any Indicators Present on Admission: No History of DVT/PE: No History of Uncontrolled Diabetes: Yes Urinary Catheter: No Decubitus Ulcer Present: No History Surgical Site Infection Following: None Review of Systems - Review of Systems Systems not reviewed;Unavailable: Altered Mental Status - Constitutional Constitutional: Lethargy - EENT Ears: Dizziness - Cardiovascular Cardiovascular: Palpitations - Reproductive: Female Reproductive:Female: Post Menopausal - Musculoskeletal Musculoskeletal: Arthralgias - Integumentary Integumentary: Change in Hair - Neurological Neurological: Numbness - Psychiatric Psychiatric: Depression Past Patient History - Infectious Disease Hx of Infectious Diseases: None - Tetanus Immunizations Tetanus Immunization: Unknown, Up to Date - Past Medical History & Family History Past Medical History?: Yes - Past Social History Smoking Status: Never Smoked Chewing Tobacco Use: No Cigar Use: No Alcohol: None Drugs: Denies Home Situation {Lives}: Alone - CARDIAC Hx Cardia Arrhythmia: Yes Hx Congestive Heart Failure: Yes Hx Hypercholesterolemia: Yes Hx Hypertension: Yes - PULMONARY Hx Asthma: Yes Hx Bronchitis: Yes Hx Chronic Obstructive Pulmonary Disease (COPD): Yes Hx Emphysema: Yes - NEUROLOGICAL Hx Dementia: Yes Hx Migraine: Yes Hx Transient Ischemic Attacks (TIA): Yes - HEENT Hx HEENT Problems: Yes Hx Blind: Yes (Left eye.) - RENAL Hx Chronic Kidney Disease: Yes - ENDOCRINE/METABOLIC Hx Endocrine Disorders: Yes Hx Diabetes Mellitus Type 2: Yes - HEMATOLOGICAL/ONCOLOGICAL Hx Blood Disorders: No - INTEGUMENTARY Hx Dermatological Problems: Yes Hx Cellulitis: Yes Hx Eczema: Yes - MUSCULOSKELETAL/RHEUMATOLOGICAL Hx Arthritis: Yes Hx Fractures: Yes - GASTROINTESTINAL Hx Gastrointestinal Disorders: Yes Hx Gastroesophageal Reflux: Yes Hx Hemorrhoids: Yes - GENITOURINARY/GYNECOLOGICAL Hx Genitourinary Disorders: Yes Hx Urinary Tract Infection: Yes - PSYCHIATRIC Hx Anxiety: Yes Hx Depression: Yes Hx Substance Use: No - SURGICAL HISTORY Hx Surgeries: Yes Hx Arteriovenous Shunt: Yes (right arm) - ANESTHESIA Hx Anesthesia: Yes Hx Anesthesia Reactions: No Hx Malignant Hyperthermia: No Meds Allergies/Adverse Reactions: Allergies Allergy/AdvReac Type Severity Reaction Status Date / Time No Known Allergies Allergy Verified 10/27/18 08:11 Physical Exam - Constitutional Appears: Chronically Ill - Head Exam Head Exam: NORMOCEPHALIC - Eye Exam Eye Exam: PERRL Pupil Exam: NORMAL ACCOMODATION - ENT Exam ENT Exam: Normal Oropharynx - Neck Exam Neck exam: Positive for: Normal Inspection - Respiratory Exam Respiratory Exam: Decreased Breath Sounds - Cardiovascular Exam Cardiovascular Exam: REGULAR RHYTHM - GI/Abdominal Exam GI & Abdominal Exam: Normal Bowel Sounds - Rectal Exam Rectal Exam: Deferred - Exam External exam: NORMAL EXTERNAL EXAM - Extremities Exam Extremities exam: Positive for: tenderness - Back Exam Back exam: NORMAL INSPECTION - Neurological Exam Neurological exam: Altered - Psychiatric Exam Psychiatric exam: Depressed - Skin Skin Exam: Dry Results - Vital Signs Recent Vital Signs: Last Vital Signs Temp 98.4 F 10/27/18 17:50 Pulse 73 10/27/18 18:18 Resp 13 10/27/18 18:18 BP 103/60 10/27/18 18:18 Pulse Ox 99 10/27/18 18:18 - Labs Result Diagrams: 10/27/18 18:20 10/27/18 18:20 Labs: Laboratory Results - last 24 hr 10/27/18 10/27/18 10/27/18 08:10 08:49 08:50 WBC RBC Hgb Hct MCV MCH MCHC RDW Plt Count MPV Neut % (Auto) Lymph % (Auto) [place] % (Auto) Eos % (Auto) Baso % (Auto) Neut # (Auto) Lymph # (Auto) [place] # (Auto) Eos # (Auto) Baso # (Auto) Neutrophils % (Manual) Lymphocytes % (Manual) Monocytes % (Manual) Eosinophils % (Manual) Platelet Estimate Poikilocytosis (manual Anisocytosis (manual) Target Cells Ovalocytes [place] Cells PT INR APTT pO2 24 L VBG pH 7.32 VBG pCO2 51 VBG HCO3 22.9 VBG Total CO2 27.9 VBG O2 Sat (Calc) 39.6 L VBG Base Excess -0.5 L VBG Potassium 4.5 Sodium 147.0 Chloride 106.0 Glucose > 750 H* Lactate 6.1 H* Crit Value Called To Dr ferreira Crit Value Called By Lele hamilton grades 9 12 tutor Crit Value Read Back Y Blood Gas Notified Time 854 Potassium Carbon Dioxide Anion Gap BUN Creatinine Est GFR ( Amer) Est GFR (Non-Af Amer) POC Glucose (mg/dL) > 500 H* Random Glucose Serum Osmolality Lactic Acid Calcium Phosphorus Magnesium Total Bilirubin AST ALT Alkaline Phosphatase Troponin I Total Protein Albumin Globulin Albumin/Globulin Ratio Venous Blood Potassium 4.5 Urine Color Urine Clarity Urine pH Ur Specific [place] Urine Protein Urine Glucose (UA) Urine Ketones Urine Blood Urine Nitrate Urine Bilirubin Urine Urobilinogen Ur Leukocyte Esterase Urine WBC (Auto) Urine RBC (Auto) Ur Squamous Epith Cells B-Hydroxybutyrate Influenza Typ A,B (EIA) Negative for flu a/b 10/27/18 10/27/18 10/27/18 08:51 10:00 10:00 WBC 11.9 H D RBC 4.63 Hgb 12.9 D Hct 40.9 MCV 88.3 D MCH 27.7 MCHC 31.4 L RDW 18.5 H Plt Count 287 MPV 10.9 Neut % (Auto) 93.3 H Lymph % (Auto) 3.6 L [place] % (Auto) 3.0 Eos % (Auto) 0.0 Baso % (Auto) 0.1 Neut # (Auto) 11.1 H Lymph # (Auto) 0.4 L [place] # (Auto) 0.4 Eos # (Auto) 0.0 Baso # (Auto) 0.0 Neutrophils % (Manual) 94 H Lymphocytes % (Manual) 3 L Monocytes % (Manual) 3 Eosinophils % (Manual) TEST NOT PERFORMED Platelet Estimate Normal Poikilocytosis (manual Slight Anisocytosis (manual) Moderate Target Cells Slight Ovalocytes Slight Syed Cells Slight PT INR APTT pO2 VBG pH VBG pCO2 VBG HCO3 VBG Total CO2 VBG O2 Sat (Calc) VBG Base Excess VBG Potassium Sodium 144 Chloride 102 Glucose Lactate Crit Value Called To Crit Value Called By Crit Value Read Back Blood Gas Notified Time Potassium 3.9 Carbon Dioxide 23 Anion Gap 23 H BUN 79 H Creatinine 4.9 H Est GFR ( Amer) 10 Est GFR (Non-Af Amer) 8 POC Glucose (mg/dL) Random Glucose 677 H* D Serum Osmolality 368 H Lactic Acid Calcium 10.6 H Phosphorus Magnesium Total Bilirubin 0.6 AST 24 ALT 12 Alkaline Phosphatase 173 H D Troponin I 0.0900 Total Protein 7.4 Albumin 4.4 Globulin 3.0 Albumin/Globulin Ratio 1.4 Venous Blood Potassium Urine Color Urine Clarity Urine pH Ur Specific [place] Urine Protein Urine Glucose (UA) Urine Ketones Urine Blood Urine Nitrate Urine Bilirubin Urine Urobilinogen Ur Leukocyte Esterase Urine WBC (Auto) Urine RBC (Auto) Ur Squamous Epith Cells B-Hydroxybutyrate 0.40 H Influenza Typ A,B (EIA) 10/27/18 10/27/18 10/27/18 10:27 11:35 12:09 WBC RBC Hgb Hct MCV MCH MCHC RDW Plt Count MPV Neut % (Auto) Lymph % (Auto) [place] % (Auto) Eos % (Auto) Baso % (Auto) Neut # (Auto) Lymph # (Auto) [place] # (Auto) Eos # (Auto) Baso # (Auto) Neutrophils % (Manual) Lymphocytes % (Manual) Monocytes % (Manual) Eosinophils % (Manual) Platelet Estimate Poikilocytosis (manual Anisocytosis (manual) Target Cells Ovalocytes [place] Cells PT INR APTT pO2 VBG pH VBG pCO2 VBG HCO3 VBG Total CO2 VBG O2 Sat (Calc) VBG Base Excess VBG Potassium Sodium Chloride Glucose Lactate Crit Value Called To Crit Value Called By Crit Value Read Back Blood Gas Notified Time Potassium Carbon Dioxide Anion Gap BUN Creatinine Est GFR ( Amer) Est GFR (Non-Af Amer) POC Glucose (mg/dL) > 500 H* > 500 H* Random Glucose Serum Osmolality Lactic Acid Calcium Phosphorus Magnesium Total Bilirubin AST ALT Alkaline Phosphatase Troponin I Total Protein Albumin Globulin Albumin/Globulin Ratio Venous Blood Potassium Urine Color Yellow Urine Clarity Clear Urine pH 6.0 Ur Specific [place] 1.015 Urine Protein 3+ H Urine Glucose (UA) 3+ H Urine Ketones Trace Urine Blood Trace Urine Nitrate Negative Urine Bilirubin Negative Urine Urobilinogen Normal Ur Leukocyte Esterase Trace Urine WBC (Auto) 14 H Urine RBC (Auto) 10 H Ur Squamous Epith Cells < 1 B-Hydroxybutyrate Influenza Typ A,B (EIA) 10/27/18 10/27/18 10/27/18 12:20 12:57 13:04 WBC RBC Hgb Hct MCV MCH MCHC RDW Plt Count MPV Neut % (Auto) Lymph % (Auto) [place] % (Auto) Eos % (Auto) Baso % (Auto) Neut # (Auto) Lymph # (Auto) [place] # (Auto) Eos # (Auto) Baso # (Auto) Neutrophils % (Manual) Lymphocytes % (Manual) Monocytes % (Manual) Eosinophils % (Manual) Platelet Estimate Poikilocytosis (manual Anisocytosis (manual) Target Cells Ovalocytes Syed Cells PT 11.3 INR 1.0 APTT 27 pO2 VBG pH VBG pCO2 VBG HCO3 VBG Total CO2 VBG O2 Sat (Calc) VBG Base Excess VBG Potassium Sodium Chloride Glucose Lactate Crit Value Called To Crit Value Called By Crit Value Read Back Blood Gas Notified Time Potassium Carbon Dioxide Anion Gap BUN Creatinine Est GFR ( Amer) Est GFR (Non-Af Amer) POC Glucose (mg/dL) 451 H* Random Glucose Serum Osmolality Lactic Acid 4.4 H* Calcium Phosphorus Magnesium Total Bilirubin AST ALT Alkaline Phosphatase Troponin I Total Protein Albumin Globulin Albumin/Globulin Ratio Venous Blood Potassium Urine Color Urine Clarity Urine pH Ur Specific [place] Urine Protein Urine Glucose (UA) Urine Ketones Urine Blood Urine Nitrate Urine Bilirubin Urine Urobilinogen Ur Leukocyte Esterase Urine WBC (Auto) Urine RBC (Auto) Ur Squamous Epith Cells B-Hydroxybutyrate Influenza Typ A,B (EIA) 10/27/18 10/27/18 10/27/18 15:15 18:20 18:20 WBC 17.2 H RBC 4.85 Hgb 12.9 Hct 40.7 MCV 83.9 D MCH 26.6 L MCHC 31.7 L RDW 18.1 H Plt Count 239 MPV 9.5 Neut % (Auto) 87.5 H Lymph % (Auto) 5.9 L [place] % (Auto) 6.5 Eos % (Auto) 0.0 Baso % (Auto) 0.1 Neut # (Auto) 15.1 H Lymph # (Auto) 1.0 [place] # (Auto) 1.1 H Eos # (Auto) 0.0 Baso # (Auto) 0.0 Neutrophils % (Manual) Lymphocytes % (Manual) Monocytes % (Manual) Eosinophils % (Manual) Platelet Estimate Poikilocytosis (manual Anisocytosis (manual) Target Cells Ovalocytes [place] Cells PT INR APTT pO2 VBG pH VBG pCO2 VBG HCO3 VBG Total CO2 VBG O2 Sat (Calc) VBG Base Excess VBG Potassium Sodium 140 Chloride 106 Glucose Lactate Crit Value Called To Crit Value Called By Crit Value Read Back Blood Gas Notified Time Potassium 3.4 L Carbon Dioxide 24 Anion Gap 13 BUN 29 H Creatinine 2.4 H Est GFR ( Amer) 23 Est GFR (Non-Af Amer) 19 POC Glucose (mg/dL) 361 H Random Glucose 226 H D Serum Osmolality Lactic Acid Calcium 9.7 Phosphorus 1.9 L Magnesium 2.0 Total Bilirubin 0.8 AST 24 ALT 21 Alkaline Phosphatase 154 H Troponin I Total Protein 7.5 Albumin 4.3 Globulin 3.1 Albumin/Globulin Ratio 1.4 Venous Blood Potassium Urine Color Urine Clarity Urine pH Ur Specific [place] Urine Protein Urine Glucose (UA) Urine Ketones Urine Blood Urine Nitrate Urine Bilirubin Urine Urobilinogen Ur Leukocyte Esterase Urine WBC (Auto) Urine RBC (Auto) Ur Squamous Epith Cells B-Hydroxybutyrate Influenza Typ A,B (EIA) 10/27/18 18:25 WBC RBC Hgb Hct MCV MCH MCHC RDW Plt Count MPV Neut % (Auto) Lymph % (Auto) [place] % (Auto) Eos % (Auto) Baso % (Auto) Neut # (Auto) Lymph # (Auto) [place] # (Auto) Eos # (Auto) Baso # (Auto) Neutrophils % (Manual) Lymphocytes % (Manual) Monocytes % (Manual) Eosinophils % (Manual) Platelet Estimate Poikilocytosis (manual Anisocytosis (manual) Target Cells Ovalocytes [place] Cells PT INR APTT pO2 92 H VBG pH 7.50 H VBG pCO2 26 L VBG HCO3 23.8 VBG Total CO2 21.1 L VBG O2 Sat (Calc) 98.2 H VBG Base Excess -1.4 L VBG Potassium 2.7 L Sodium 145.0 Chloride 113.0 H Glucose 198 H Lactate 2.2 H Crit Value Called To Crit Value Called By Crit Value Read Back Blood Gas Notified Time Potassium Carbon Dioxide Anion Gap BUN Creatinine Est GFR ( Amer) Est GFR (Non-Af Amer) POC Glucose (mg/dL) Random Glucose Serum Osmolality Lactic Acid Calcium Phosphorus Magnesium Total Bilirubin AST ALT Alkaline Phosphatase Troponin I Total Protein Albumin Globulin Albumin/Globulin Ratio Venous Blood Potassium 2.7 L Urine Color Urine Clarity Urine pH Ur Specific [place] Urine Protein Urine Glucose (UA) Urine Ketones Urine Blood Urine Nitrate Urine Bilirubin Urine Urobilinogen Ur Leukocyte Esterase Urine WBC (Auto) Urine RBC (Auto) Ur Squamous Epith Cells B-Hydroxybutyrate Influenza Typ A,B (EIA) Assessment & Plan (1) ESRD (end stage renal disease) Status: Acute (2) Lactic acidosis Status: Acute (3) Altered mental status Status: Acute (4) Arthralgia Status: Acute (5) Uncontrolled diabetes mellitus Status: Acute Priority: Medium
[2018-10-27] MEDS ORDERED: Sodium Chloride 0.9% 1,000 ML IV SCH (19:15)
[2018-10-27] MEDS ORDERED: Sodium Chloride 0.9% 500 ML IV SCH ×2 (19:22→21:00)
[2018-10-27] MEDS ORDERED: Midazolam 2 MG/2 ML VIAL IVP ONE (19:41)
[2018-10-27] MEDS ORDERED: levETIRAcetam 500 MG in Sodium Chloride 0.9% 100 ML IVPB ONE (20:02)
[2018-10-27 20:37] LABS: GIANT PLATELETS PRESENT; LYMPHOCYTE 7 % (20-40); MONOCYTE 4 % (0-10); NEUTROPHIL 89 % (50-75); PLATELET ESTIMATE NORMAL (NORMAL); TOTAL CELLS COUNTED 100
[2018-10-28] MEDS: (Novolin R) Insulin Human Regular 100 units/ml vial SC SCH ×3 (01:47→10:45)
--- NOTE | 2018-10-28 02:32 | CP.PCM.CON ---
History of Present Illness - History of Present Illness History of Present Illness: REASONS FOR CONSULT : ESRD IN NEED FOR URJENT HD ELECTROLYTES ABNORMALITIES ANEMIA OF CKD .. H/H STABLE ALL EMR REVIEWED .. PT WAS SEEN IN ICU .. JOSIAS REVIEWED THOROGHLY .. CASE D/W DR ALTMAN THE INTESIVISE PT WENT TO HER REGULAR AND SCHEDULED HD TREATMENT THIS SAT MORNING AND WAS NOT FEELING WELL .. I RECIEVED A CALL FROM THE HD RN THAT PT HAS CHANGE OF MENTAL STATUS AND HER BLOOD SUGAR WAS OVER 500 PT WAS SENT TO ER ..PT IS WELL KNOWN TO ME WITH MMP AND FREQUENT ADMISSION TO Patient is a 82 year old female with pmhx of ESRD on HD MWF, CHF, HTN, DM, asthma/emphysema, anxiety and dementia that was sent from dialysis center this morning before getting her HD session due to her sugar levels were elavted. As per ruthiether at bedside, patient's blood sugar was under control before leaving the house to HD center, and patient had one bottle of ensure in the morning. Daugther states this weekend, patient has been more weak than usual. At HD [facility], glucose was on the 400s, patient was advised to come to the ED. Patient was noted to be shaky today, with nausea, and chills, but no fevers. No shortness of breath or chest pain reported, as per daugther. At ED, patient random glucose was found to be 677, elevated lactic acid to 6/1, normal pH. Patient was given 8 Units of IV insulin in ED and antibiotics in the case of sepsis, transferred to ICU for monitoring of glucose level, as well as for patient to get dialysis session at unit. no other ROS unttainable from pt due to patient's not responding, 2/2 to dementia. PMD: Dr Mccracken ALL: NKDA Pmhx: as stated in HPI Shx: AV fistula Fmhx: DM (mother and father) Sochx: denies tobacco, alcohol or drug use Meds: see records. Past Patient History - Infectious Disease Hx of Infectious Diseases: None - Tetanus Immunizations Tetanus Immunization: Unknown, Up to Date - Past Medical History & Family History Past Medical History?: Yes - Past Social History Smoking Status: Never Smoked - CARDIAC Hx Cardia Arrhythmia: Yes Hx Congestive Heart Failure: Yes Hx Hypercholesterolemia: Yes Hx Hypertension: Yes - PULMONARY Hx Asthma: Yes Hx Bronchitis: Yes Hx Chronic Obstructive Pulmonary Disease (COPD): Yes Hx Emphysema: Yes - NEUROLOGICAL Hx Dementia: Yes Hx Migraine: Yes Hx Transient Ischemic Attacks (TIA): Yes - HEENT Hx HEENT Problems: Yes Hx Blind: Yes (Left eye.) - RENAL Hx Chronic Kidney Disease: Yes - ENDOCRINE/METABOLIC Hx Endocrine Disorders: Yes Hx Diabetes Mellitus Type 2: Yes - HEMATOLOGICAL/ONCOLOGICAL Hx Blood Disorders: No - INTEGUMENTARY Hx Dermatological Problems: Yes Hx Cellulitis: Yes Hx Eczema: Yes - MUSCULOSKELETAL/RHEUMATOLOGICAL Hx Arthritis: Yes Hx Fractures: Yes - GASTROINTESTINAL Hx Gastrointestinal Disorders: Yes Hx Gastroesophageal Reflux: Yes Hx Hemorrhoids: Yes - GENITOURINARY/GYNECOLOGICAL Hx Genitourinary Disorders: Yes Hx Urinary Tract Infection: Yes - PSYCHIATRIC Hx Anxiety: Yes Hx Depression: Yes Hx Substance Use: No - SURGICAL HISTORY Hx Surgeries: Yes Hx Arteriovenous Shunt: Yes (right arm) - ANESTHESIA Hx Anesthesia: Yes Hx Anesthesia Reactions: No Hx Malignant Hyperthermia: No Meds Allergies/Adverse Reactions: Allergies Allergy/AdvReac Type Severity Reaction Status Date / Time No Known Allergies Allergy Verified 10/27/18 08:11 - Medications Medications: Current Medications Albuterol Sulfate (Albuterol 0.083% Inhal Luisa (2.5 Mg/3 Ml) Ud) 2.5 mg INH RQ6 PRN PRN Reason: Shortness of Breath Aspirin (Aspirin Chewable) 81 mg PO DAILY [facility] Clopidogrel Bisulfate (Plavix) 75 mg PO DAILY [facility] Dextrose (Dextrose 50% Inj) 0 ml IV STAT PRN; Protocol PRN Reason: Hypoglycemia Protocol Dextrose (Glutose 15) 0 gm PO ONCE PRN; Protocol PRN Reason: Hypoglycemia Protocol Enalapril Maleate (Vasotec) 10 mg PO DAILY [facility] Glucagon (Glucagen Diagnostic Kit) 0 mg IM STAT PRN; Protocol PRN Reason: Hypoglycemia Protocol Heparin Sodium (Porcine) (Heparin) 5,000 units SC Q12 [facility] Last Admin: 10/27/18 21:13 Dose: 5,000 units Heparin Sodium (Porcine) (Heparin) 2,000 units IVP MWF [facility] Last Admin: 10/27/18 14:57 Dose: 2,000 units Hydralazine HCl (Apresoline) 25 mg PO TID [facility] Dextrose (Dextrose 5% In Water 1000 Ml) 1,000 mls @ 0 mls/hr IV .Q0M PRN; Protocol PRN Reason: Hypoglycemia Protocol Insulin Human Regular (Novolin R) 0 unit SC Q4H [facility]; Protocol Last Admin: 10/28/18 01:47 Dose: 4 units Levetiracetam (Keppra) 500 mg PO DIAL [facility] Losartan Potassium (Cozaar) 50 mg PO DAILY [facility] Montelukast Sodium (Singulair) 10 mg PO DAILY [facility] Quetiapine Fumarate (Seroquel) 25 mg PO DAILY [facility] Rosuvastatin Calcium (Crestor) 5 mg PO HS [facility] Last Admin: 10/27/18 21:12 Dose: Not Given Results - Vital Signs Recent Vital Signs: Last Vital Signs Temp 98.8 F 10/28/18 00:00 Pulse 67 10/28/18 01:20 Resp 24 10/28/18 01:20 BP 136/65 10/28/18 00:58 Pulse Ox 98 10/28/18 01:20 - Labs Result Diagrams: 10/27/18 18:20 10/27/18 18:20 Labs: Laboratory Results - last 24 hr 10/27/18 10/27/18 10/27/18 08:10 08:49 08:50 WBC RBC Hgb Hct MCV MCH MCHC RDW Plt Count MPV Neut % (Auto) Lymph % (Auto) Harnett % (Auto) Eos % (Auto) Baso % (Auto) Neut # (Auto) Lymph # (Auto) H[place]ett # (Auto) Eos # (Auto) Baso # (Auto) Neutrophils % (Manual) Lymphocytes % (Manual) Monocytes % (Manual) Eosinophils % (Manual) Platelet Estimate Giant Platelets Poikilocytosis (manual Anisocytosis (manual) Target Cells Ovalocytes [place] Cells PT INR APTT pO2 24 L VBG pH 7.32 VBG pCO2 51 VBG HCO3 22.9 VBG Total CO2 27.9 VBG O2 Sat (Calc) 39.6 L VBG Base Excess -0.5 L VBG Potassium 4.5 Sodium 147.0 Chloride 106.0 Glucose > 750 H* Lactate 6.1 H* Crit Value Called To Dr ferreira Crit Value Called By Lele hamilton vascular surgery physician Crit Value Read Back Y Blood Gas Notified Time 854 Potassium Carbon Dioxide Anion Gap BUN Creatinine Est GFR ( Amer) Est GFR (Non-Af Amer) POC Glucose (mg/dL) > 500 H* Random Glucose Serum Osmolality Lactic Acid Calcium Phosphorus Magnesium Total Bilirubin AST ALT Alkaline Phosphatase Troponin I Total Protein Albumin Globulin Albumin/Globulin Ratio Venous Blood Potassium 4.5 Urine Color Urine Clarity Urine pH Ur Specific Phyllis Urine Protein Urine Glucose (UA) Urine Ketones Urine Blood Urine Nitrate Urine Bilirubin Urine Urobilinogen Ur Leukocyte Esterase Urine WBC (Auto) Urine RBC (Auto) Ur Squamous Epith Cells B-Hydroxybutyrate Influenza Typ A,B (EIA) Negative for flu a/b 10/27/18 10/27/18 10/27/18 08:51 10:00 10:00 WBC 11.9 H D RBC 4.63 Hgb 12.9 D Hct 40.9 MCV 88.3 D MCH 27.7 MCHC 31.4 L RDW 18.5 H Plt Count 287 MPV 10.9 Neut % (Auto) 93.3 H Lymph % (Auto) 3.6 L Harnett % (Auto) 3.0 Eos % (Auto) 0.0 Baso % (Auto) 0.1 Neut # (Auto) 11.1 H Lymph # (Auto) 0.4 L Harnett # (Auto) 0.4 Eos # (Auto) 0.0 Baso # (Auto) 0.0 Neutrophils % (Manual) 94 H Lymphocytes % (Manual) 3 L Monocytes % (Manual) 3 Eosinophils % (Manual) TEST NOT PERFORMED Platelet Estimate Normal Giant Platelets Poikilocytosis (manual Slight Anisocytosis (manual) Moderate Target Cells Slight Ovalocytes Slight Fairland Cells Slight PT INR APTT pO2 VBG pH VBG pCO2 VBG HCO3 VBG Total CO2 VBG O2 Sat (Calc) VBG Base Excess VBG Potassium Sodium 144 Chloride 102 Glucose Lactate Crit Value Called To Crit Value Called By Crit Value Read Back Blood Gas Notified Time Potassium 3.9 Carbon Dioxide 23 Anion Gap 23 H BUN 79 H Creatinine 4.9 H Est GFR ( Amer) 10 Est GFR (Non-Af Amer) 8 POC Glucose (mg/dL) Random Glucose 677 H* D Serum Osmolality 368 H Lactic Acid Calcium 10.6 H Phosphorus Magnesium Total Bilirubin 0.6 AST 24 ALT 12 Alkaline Phosphatase 173 H D Troponin I 0.0900 Total Protein 7.4 Albumin 4.4 Globulin 3.0 Albumin/Globulin Ratio 1.4 Venous Blood Potassium Urine Color Urine Clarity Urine pH Ur Specific Phyllis Urine Protein Urine Glucose (UA) Urine Ketones Urine Blood Urine Nitrate Urine Bilirubin Urine Urobilinogen Ur Leukocyte Esterase Urine WBC (Auto) Urine RBC (Auto) Ur Squamous Epith Cells B-Hydroxybutyrate 0.40 H Influenza Typ A,B (EIA) 10/27/18 10/27/18 10/27/18 10:27 11:35 12:09 WBC RBC Hgb Hct MCV MCH MCHC RDW Plt Count MPV Neut % (Auto) Lymph % (Auto) Harnett % (Auto) Eos % (Auto) Baso % (Auto) Neut # (Auto) Lymph # (Auto) H[place]ett # (Auto) Eos # (Auto) Baso # (Auto) Neutrophils % (Manual) Lymphocytes % (Manual) Monocytes % (Manual) Eosinophils % (Manual) Platelet Estimate Giant Platelets Poikilocytosis (manual Anisocytosis (manual) Target Cells Ovalocytes [place] Cells PT INR APTT pO2 VBG pH VBG pCO2 VBG HCO3 VBG Total CO2 VBG O2 Sat (Calc) VBG Base Excess VBG Potassium Sodium Chloride Glucose Lactate Crit Value Called To Crit Value Called By Crit Value Read Back Blood Gas Notified Time Potassium Carbon Dioxide Anion Gap BUN Creatinine Est GFR ( Amer) Est GFR (Non-Af Amer) POC Glucose (mg/dL) > 500 H* > 500 H* Random Glucose Serum Osmolality Lactic Acid Calcium Phosphorus Magnesium Total Bilirubin AST ALT Alkaline Phosphatase Troponin I Total Protein Albumin Globulin Albumin/Globulin Ratio Venous Blood Potassium Urine Color Yellow Urine Clarity Clear Urine pH 6.0 Ur Specific Phyllis 1.015 Urine Protein 3+ H Urine Glucose (UA) 3+ H Urine Ketones Trace Urine Blood Trace Urine Nitrate Negative Urine Bilirubin Negative Urine Urobilinogen Normal Ur Leukocyte Esterase Trace Urine WBC (Auto) 14 H Urine RBC (Auto) 10 H Ur Squamous Epith Cells < 1 B-Hydroxybutyrate Influenza Typ A,B (EIA) 10/27/18 10/27/18 10/27/18 12:20 12:57 13:04 WBC RBC Hgb Hct MCV MCH MCHC RDW Plt Count MPV Neut % (Auto) Lymph % (Auto) Harnett % (Auto) Eos % (Auto) Baso % (Auto) Neut # (Auto) Lymph # (Auto) H[place]ett # (Auto) Eos # (Auto) Baso # (Auto) Neutrophils % (Manual) Lymphocytes % (Manual) Monocytes % (Manual) Eosinophils % (Manual) Platelet Estimate Giant Platelets Poikilocytosis (manual Anisocytosis (manual) Target Cells Ovalocytes [place] Cells PT 11.3 INR 1.0 APTT 27 pO2 VBG pH VBG pCO2 VBG HCO3 VBG Total CO2 VBG O2 Sat (Calc) VBG Base Excess VBG Potassium Sodium Chloride Glucose Lactate Crit Value Called To Crit Value Called By Crit Value Read Back Blood Gas Notified Time Potassium Carbon Dioxide Anion Gap BUN Creatinine Est GFR ( Amer) Est GFR (Non-Af Amer) POC Glucose (mg/dL) 451 H* Random Glucose Serum Osmolality Lactic Acid 4.4 H* Calcium Phosphorus Magnesium Total Bilirubin AST ALT Alkaline Phosphatase Troponin I Total Protein Albumin Globulin Albumin/Globulin Ratio Venous Blood Potassium Urine Color Urine Clarity Urine pH Ur Specific Phyllis Urine Protein Urine Glucose (UA) Urine Ketones Urine Blood Urine Nitrate Urine Bilirubin Urine Urobilinogen Ur Leukocyte Esterase Urine WBC (Auto) Urine RBC (Auto) Ur Squamous Epith Cells B-Hydroxybutyrate Influenza Typ A,B (EIA) 10/27/18 10/27/18 10/27/18 15:15 18:20 18:20 WBC 17.2 H RBC 4.85 Hgb 12.9 Hct 40.7 MCV 83.9 D MCH 26.6 L MCHC 31.7 L RDW 18.1 H Plt Count 239 MPV 9.5 Neut % (Auto) 87.5 H Lymph % (Auto) 5.9 L Harnett % (Auto) 6.5 Eos % (Auto) 0.0 Baso % (Auto) 0.1 Neut # (Auto) 15.1 H Lymph # (Auto) 1.0 Harnett # (Auto) 1.1 H Eos # (Auto) 0.0 Baso # (Auto) 0.0 Neutrophils % (Manual) 89 H Lymphocytes % (Manual) 7 L Monocytes % (Manual) 4 Eosinophils % (Manual) Platelet Estimate Normal Giant Platelets Present Poikilocytosis (manual Anisocytosis (manual) Target Cells Ovalocytes [place] Cells PT INR APTT pO2 VBG pH VBG pCO2 VBG HCO3 VBG Total CO2 VBG O2 Sat (Calc) VBG Base Excess VBG Potassium Sodium 140 Chloride 106 Glucose Lactate Crit Value Called To Crit Value Called By Crit Value Read Back Blood Gas Notified Time Potassium 3.4 L Carbon Dioxide 24 Anion Gap 13 BUN 29 H Creatinine 2.4 H Est GFR ( Amer) 23 Est GFR (Non-Af Amer) 19 POC Glucose (mg/dL) 361 H Random Glucose 226 H D Serum Osmolality Lactic Acid Calcium 9.7 Phosphorus 1.9 L Magnesium 2.0 Total Bilirubin 0.8 AST 24 ALT 21 Alkaline Phosphatase 154 H Troponin I Total Protein 7.5 Albumin 4.3 Globulin 3.1 Albumin/Globulin Ratio 1.4 Venous Blood Potassium Urine Color Urine Clarity Urine pH Ur Specific Phyllis Urine Protein Urine Glucose (UA) Urine Ketones Urine Blood Urine Nitrate Urine Bilirubin Urine Urobilinogen Ur Leukocyte Esterase Urine WBC (Auto) Urine RBC (Auto) Ur Squamous Epith Cells B-Hydroxybutyrate Influenza Typ A,B (EIA) 10/27/18 10/27/18 10/27/18 18:25 18:54 20:07 WBC RBC Hgb Hct MCV MCH MCHC RDW Plt Count MPV Neut % (Auto) Lymph % (Auto) [place]ett % (Auto) Eos % (Auto) Baso % (Auto) Neut # (Auto) Lymph # (Auto) [place] # (Auto) Eos # (Auto) Baso # (Auto) Neutrophils % (Manual) Lymphocytes % (Manual) Monocytes % (Manual) Eosinophils % (Manual) Platelet Estimate Giant Platelets Poikilocytosis (manual Anisocytosis (manual) Target Cells Ovalocytes Syed Cells PT INR APTT pO2 92 H VBG pH 7.50 H VBG pCO2 26 L VBG HCO3 23.8 VBG Total CO2 21.1 L VBG O2 Sat (Calc) 98.2 H VBG Base Excess -1.4 L VBG Potassium 2.7 L Sodium 145.0 Chloride 113.0 H Glucose 198 H Lactate 2.2 H Crit Value Called To Crit Value Called By Crit Value Read Back Blood Gas Notified Time Potassium Carbon Dioxide Anion Gap BUN Creatinine Est GFR ( Amer) Est GFR (Non-Af Amer) POC Glucose (mg/dL) 198 H Random Glucose Serum Osmolality Lactic Acid Calcium Phosphorus Magnesium Total Bilirubin AST ALT Alkaline Phosphatase Troponin I 0.1320 H* Total Protein Albumin Globulin Albumin/Globulin Ratio Venous Blood Potassium 2.7 L Urine Color Urine Clarity Urine pH Ur Specific Phyllis Urine Protein Urine Glucose (UA) Urine Ketones Urine Blood Urine Nitrate Urine Bilirubin Urine Urobilinogen Ur Leukocyte Esterase Urine WBC (Auto) Urine RBC (Auto) Ur Squamous Epith Cells B-Hydroxybutyrate Influenza Typ A,B (EIA) 10/27/18 10/27/18 20:28 22:38 WBC RBC Hgb Hct MCV MCH MCHC RDW Plt Count MPV Neut % (Auto) Lymph % (Auto) [place] % (Auto) Eos % (Auto) Baso % (Auto) Neut # (Auto) Lymph # (Auto) [place]ett # (Auto) Eos # (Auto) Baso # (Auto) Neutrophils % (Manual) Lymphocytes % (Manual) Monocytes % (Manual) Eosinophils % (Manual) Platelet Estimate Giant Platelets Poikilocytosis (manual Anisocytosis (manual) Target Cells Ovalocytes Syed Cells PT INR APTT pO2 VBG pH VBG pCO2 VBG HCO3 VBG Total CO2 VBG O2 Sat (Calc) VBG Base Excess VBG Potassium Sodium Chloride Glucose Lactate Crit Value Called To Crit Value Called By Crit Value Read Back Blood Gas Notified Time Potassium Carbon Dioxide Anion Gap BUN Creatinine Est GFR ( Amer) Est GFR (Non-Af Amer) POC Glucose (mg/dL) 199 H Random Glucose Serum Osmolality 310 H Lactic Acid Calcium Phosphorus Magnesium Total Bilirubin AST ALT Alkaline Phosphatase Troponin I Total Protein Albumin Globulin Albumin/Globulin Ratio Venous Blood Potassium Urine Color Urine Clarity Urine pH Ur Specific Phyllis Urine Protein Urine Glucose (UA) Urine Ketones Urine Blood Urine Nitrate Urine Bilirubin Urine Urobilinogen Ur Leukocyte Esterase Urine WBC (Auto) Urine RBC (Auto) Ur Squamous Epith Cells B-Hydroxybutyrate Influenza Typ A,B (EIA) Assessment & Plan - Assessment and Plan (Free Text) Assessment: ESRD ON HD [facility]. RECIEVED HER HD TODAY IN ICU .. TOLERAED WELL ANEMIA OF CKD .. H/H STABLE .. NO NEED FOR EPO TODAY ELECTROLYTES ABN .. LOW K .. WILL BE CORRECTED ON HD HYPERGLYCEMIA .. WAS TREATED WITH REG INSULINE AND HD ACUTE CHANGE IN MENTAL STATUS .. PROBABLY 2/2 HYPERGLYCEMIA .. R/O OTHER ETIOLOGY DM HTN] DEPPRESION / DEMENTIA / ANXIETY DISORDER HYPERLEPIDEMIA DJD P : HD STAT .. DONE RENAL AND DIABETIC DIET .. 2 G SN , 2 G K , 100 G PROTIEN AND 1800 RONALD ADA C/O PO MEDS ENDO CONSULT ? C/O PRESENT CARE C/O CURRENT MANAGEMENT WILL F/U CLOSELY - Date & Time Date: 10/27/18 Time: 16:00
[2018-10-28 06:15] LABS: BASO % 0.4 % (0.0-2.0); EOS # 0.1 K/uL (0.0-0.7); EOS % 0.5 % (0.0-4.0); HEMOGLOBIN 12.3 g/dL (11.0-16.0); LYMPH # 1.7 K/uL (1.0-4.3); LYMPH % 16.8 % (20.0-40.0); MEAN CORPUSCULAR HEMOGLOBIN 27.2 pg (27.0-31.0); MEAN CORPUSCULAR HGB CONC 31.6 g/dL (33.0-37.0); MEAN PLATELET VOLUME 10.1 fL (7.2-11.7); MONO # 0.8 K/uL (0.0-0.8); MONO % 8.4 % (0.0-10.0); NEUT # 7.3 K/uL (1.8-7.0); NEUT % 73.9 % (50.0-75.0); RBC 4.52 Mil/uL (3.80-5.20); RED CELL DISTRIBUTION WIDTH 18.3 % (11.5-14.5); WHITE BLOOD COUNT 9.9 K/uL (4.8-10.8)
[2018-10-28 06:50] LABS: ALB/GLOB RATIO 1.3 (1.0-2.1); ALBUMIN 3.7 g/dL (3.5-5.0); CALCIUM 9.4 mg/dl (8.6-10.4)
[2018-10-28] MEDS: Multivitamin Vitamin B Complex (Nephro-Vite) Tab PO SCH (08:24)
--- NOTE | 2018-10-28 11:45 | CARD ---
APPROVED REPORT Date of service: 10/27/2018 EKG Measurement Heart [id number] ID [id number] <Conclusion> Sinus rhythm with occasional premature ventricular complexes Left anterior fascicular block Moderate voltage criteria for LVH, may be normal variant Septal infarct, age undetermined T wave abnormality, consider lateral ischemia Abnormal ECG
[2018-10-28] MEDS: (Novolog) Insulin Aspart, Recombinant 100 u/ml 10 ml vial SC SCH ×5 (11:52→21:40)
--- NOTE | 2018-10-28 14:48 | CP.PCM.CON ---
History of Present Illness - History of Present Illness History of Present Illness: Neurology Consultation Note: Consult requested by Dr. Mccracken Mrs. Prater is an 82-year-old woman with multiple medical co-morbidities, who was at the dialysis center and was found to have serum glucose of nearly 500, she was told to come to the ED, where her glucose was over 700. She was treated with insulin and admitted to the ICU. While here, she was found to have occasional bilateral upper extremity jerky movements with associated confusion and unresponsiveness. I spoke with the ICU after witnessing these movements and associated clinical findings, and recommended Keppra [address] scan of the head was done and did not show any acute findings or significant abnormalities. EEG was ordered and is pending. Review of Systems - Review of Systems Systems not reviewed;Unavailable: Altered Mental Status Past Patient History - Infectious Disease Hx of Infectious Diseases: None - Tetanus Immunizations Tetanus Immunization: Unknown, Up to Date - Past Medical History & Family History Past Medical History?: Yes - Past Social History Smoking Status: Never Smoked - CARDIAC Hx Congestive Heart Failure: Yes Hx Hypertension: Yes - PULMONARY Hx Asthma: Yes Hx Bronchitis: Yes Hx Chronic Obstructive Pulmonary Disease (COPD): Yes Hx Emphysema: Yes - NEUROLOGICAL Hx Dementia: Yes Hx Migraine: Yes Hx Transient Ischemic Attacks (TIA): Yes - HEENT Hx HEENT Problems: Yes Hx Blind: Yes (Left eye.) - RENAL Hx Chronic Kidney Disease: Yes - ENDOCRINE/METABOLIC Hx Endocrine Disorders: Yes Hx Diabetes Mellitus Type 2: Yes - HEMATOLOGICAL/ONCOLOGICAL Hx Blood Disorders: No - INTEGUMENTARY Hx Dermatological Problems: Yes Hx Cellulitis: Yes Hx Eczema: Yes - MUSCULOSKELETAL/RHEUMATOLOGICAL Hx Arthritis: Yes - GASTROINTESTINAL Hx Gastrointestinal Disorders: Yes Hx Gastroesophageal Reflux: Yes Hx Hemorrhoids: Yes - GENITOURINARY/GYNECOLOGICAL Hx Genitourinary Disorders: Yes Hx Urinary Tract Infection: Yes - PSYCHIATRIC Hx Anxiety: Yes Hx Depression: Yes Hx Substance Use: No - SURGICAL HISTORY Hx Surgeries: Yes Hx Arteriovenous Shunt: Yes (right arm) - ANESTHESIA Hx Anesthesia: Yes Hx Anesthesia Reactions: No Hx Malignant Hyperthermia: No Meds Allergies/Adverse Reactions: Allergies Allergy/AdvReac Type Severity Reaction Status Date / Time No Known Allergies Allergy Verified 10/27/18 08:11 - Medications Medications: Current Medications Albuterol Sulfate (Albuterol 0.083% Inhal Luisa (2.5 Mg/3 Ml) Ud) 2.5 mg INH RQ6 PRN PRN Reason: Shortness of Breath Aspirin (Aspirin Chewable) 81 mg PO DAILY [facility] Last Admin: 10/28/18 10:42 Dose: 81 mg Clopidogrel Bisulfate (Plavix) 75 mg PO DAILY [facility] Last Admin: 10/28/18 10:43 Dose: 75 mg Dextrose (Dextrose 50% Inj) 0 ml IV STAT PRN; Protocol PRN Reason: Hypoglycemia Protocol Dextrose (Glutose 15) 0 gm PO ONCE PRN; Protocol PRN Reason: Hypoglycemia Protocol Enalapril Maleate (Vasotec) 10 mg PO DAILY [facility] Last Admin: 10/28/18 10:42 Dose: 10 mg Famotidine (Pepcid) 20 mg IVP DAILY [facility] Glucagon (Glucagen Diagnostic Kit) 0 mg IM STAT PRN; Protocol PRN Reason: Hypoglycemia Protocol Heparin Sodium (Porcine) (Heparin) 5,000 units SC Q12 [facility] Last Admin: 10/28/18 10:42 Dose: 5,000 units Heparin Sodium (Porcine) (Heparin) 2,000 units IVP MWF [facility] Last Admin: 10/27/18 14:57 Dose: 2,000 units Hydralazine HCl (Apresoline) 25 mg PO TID [facility] Last Admin: 10/28/18 14:10 Dose: 25 mg Dextrose (Dextrose 5% In Water 1000 Ml) 1,000 mls @ 0 mls/hr IV .Q0M PRN; Protocol PRN Reason: Hypoglycemia Protocol Influenza Virus Vaccine (Flucelvax Quad [id number] Syr) 60 mcg IM .ONCE ONE Stop: 10/30/18 11:30 Insulin Aspart (Novolog) 10 unit SC AC [facility] Last Admin: 10/28/18 11:52 Dose: 10 u Insulin Aspart (Novolog) 0 unit SC ACHS [facility] Last Admin: 10/28/18 11:53 Dose: 5 u Insulin Glargine (Lantus) 24 unit SC HS [facility] Levetiracetam (Keppra) 500 mg PO DIAL [facility] Losartan Potassium (Cozaar) 50 mg PO DAILY [facility] Last Admin: 10/28/18 10:43 Dose: 50 mg Montelukast Sodium (Singulair) 10 mg PO DAILY [facility] Last Admin: 10/28/18 10:43 Dose: 10 mg Quetiapine Fumarate (Seroquel) 25 mg PO DAILY [facility] Last Admin: 10/28/18 10:44 Dose: 25 mg Rosuvastatin Calcium (Crestor) 5 mg PO HS [facility] Last Admin: 10/27/18 21:12 Dose: Not Given Vitamin B Complex/Vit C/Folic Acid (Nephro-Marina) 1 tab PO 0800 [facility] Last Admin: 10/28/18 08:24 Dose: 1 tab Physical Exam - Constitutional Appears: Well - Head Exam Head Exam: ATRAUMATIC, NORMAL INSPECTION, NORMOCEPHALIC - Eye Exam Eye Exam: EOMI, Normal appearance, PERRL Pupil Exam: NORMAL ACCOMODATION, PERRL - ENT Exam ENT Exam: Mucous Membranes Moist, Normal Exam - Neck Exam Neck exam: Positive for: Normal Inspection - Respiratory Exam Respiratory Exam: Clear to Auscultation Bilateral, NORMAL BREATHING PATTERN - Cardiovascular Exam Cardiovascular Exam: REGULAR RHYTHM, +S1, +S2 - GI/Abdominal Exam GI & Abdominal Exam: Normal Bowel Sounds, Soft. absent: Tenderness - Rectal Exam Rectal Exam: Deferred - Extremities Exam Extremities exam: Positive for: normal inspection - Back Exam Back exam: NORMAL INSPECTION - Neurological Exam Neurological exam: Abnormal Gait, Altered, CN II-XII Intact, Reflexes Normal Additional comments: Somnolent after Seroquel. Not following commands now, but opens eyes and moves all extremities to verbal and painful stimulus. Occasional right arm jerky movements are noted. - Psychiatric Exam Psychiatric exam: Normal Affect, Normal Mood - Skin Skin Exam: Dry, Intact, Normal Color, Warm Results - Vital Signs Recent Vital Signs: Last Vital Signs Temp 99.2 F 10/28/18 12:00 Pulse 69 10/28/18 12:30 Resp 20 10/28/18 12:30 BP 108/59 L 10/28/18 11:58 Pulse Ox 98 10/28/18 12:30 - Labs Result Diagrams: 10/28/18 06:07 10/28/18 06:07 Labs: Laboratory Results - last 24 hr 10/27/18 10/27/18 10/27/18 15:15 18:20 18:20 WBC 17.2 H RBC 4.85 Hgb 12.9 Hct 40.7 MCV 83.9 D MCH 26.6 L MCHC 31.7 L RDW 18.1 H Plt Count 239 MPV 9.5 Neut % (Auto) 87.5 H Lymph % (Auto) 5.9 L [place] % (Auto) 6.5 Eos % (Auto) 0.0 Baso % (Auto) 0.1 Neut # (Auto) 15.1 H Lymph # (Auto) 1.0 [place] # (Auto) 1.1 H Eos # (Auto) 0.0 Baso # (Auto) 0.0 Neutrophils % (Manual) 89 H Lymphocytes % (Manual) 7 L Monocytes % (Manual) 4 Platelet Estimate Normal Giant Platelets Present pO2 VBG pH VBG pCO2 VBG HCO3 VBG Total CO2 VBG O2 Sat (Calc) VBG Base Excess VBG Potassium Glucose Lactate Sodium 140 Potassium 3.4 L Chloride 106 Carbon Dioxide 24 Anion Gap 13 BUN 29 H Creatinine 2.4 H Est GFR ( Amer) 23 Est GFR (Non-Af Amer) 19 POC Glucose (mg/dL) 361 H Random Glucose 226 H D Serum Osmolality Calcium 9.7 Phosphorus 1.9 L Magnesium 2.0 Total Bilirubin 0.8 AST 24 ALT 21 Alkaline Phosphatase 154 H Troponin I Total Protein 7.5 Albumin 4.3 Globulin 3.1 Albumin/Globulin Ratio 1.4 Venous Blood Potassium 10/27/18 10/27/18 10/27/18 18:25 18:54 20:07 WBC RBC Hgb Hct MCV MCH MCHC RDW Plt Count MPV Neut % (Auto) Lymph % (Auto) [place] % (Auto) Eos % (Auto) Baso % (Auto) Neut # (Auto) Lymph # (Auto) [place] # (Auto) Eos # (Auto) Baso # (Auto) Neutrophils % (Manual) Lymphocytes % (Manual) Monocytes % (Manual) Platelet Estimate Giant Platelets pO2 92 H VBG pH 7.50 H VBG pCO2 26 L VBG HCO3 23.8 VBG Total CO2 21.1 L VBG O2 Sat (Calc) 98.2 H VBG Base Excess -1.4 L VBG Potassium 2.7 L Glucose 198 H Lactate 2.2 H Sodium 145.0 Potassium Chloride 113.0 H Carbon Dioxide Anion Gap BUN Creatinine Est GFR ( Amer) Est GFR (Non-Af Amer) POC Glucose (mg/dL) 198 H Random Glucose Serum Osmolality Calcium Phosphorus Magnesium Total Bilirubin AST ALT Alkaline Phosphatase Troponin I 0.1320 H* Total Protein Albumin Globulin Albumin/Globulin Ratio Venous Blood Potassium 2.7 L 10/27/18 10/27/18 10/28/18 20:28 22:38 01:43 WBC RBC Hgb Hct MCV MCH MCHC RDW Plt Count MPV Neut % (Auto) Lymph % (Auto) [place] % (Auto) Eos % (Auto) Baso % (Auto) Neut # (Auto) Lymph # (Auto) [place] # (Auto) Eos # (Auto) Baso # (Auto) Neutrophils % (Manual) Lymphocytes % (Manual) Monocytes % (Manual) Platelet Estimate Giant Platelets pO2 VBG pH VBG pCO2 VBG HCO3 VBG Total CO2 VBG O2 Sat (Calc) VBG Base Excess VBG Potassium Glucose Lactate Sodium Potassium Chloride Carbon Dioxide Anion Gap BUN Creatinine Est GFR ( Amer) Est GFR (Non-Af Amer) POC Glucose (mg/dL) 199 H 258 H Random Glucose Serum Osmolality 310 H Calcium Phosphorus Magnesium Total Bilirubin AST ALT Alkaline Phosphatase Troponin I Total Protein Albumin Globulin Albumin/Globulin Ratio Venous Blood Potassium 10/28/18 10/28/18 10/28/18 05:57 06:07 06:07 WBC 9.9 RBC 4.52 Hgb 12.3 Hct 38.9 MCV 86.0 D MCH 27.2 MCHC 31.6 L RDW 18.3 H Plt Count 201 MPV 10.1 Neut % (Auto) 73.9 Lymph % (Auto) 16.8 L [place] % (Auto) 8.4 Eos % (Auto) 0.5 Baso % (Auto) 0.4 Neut # (Auto) 7.3 H Lymph # (Auto) 1.7 [place] # (Auto) 0.8 Eos # (Auto) 0.1 Baso # (Auto) 0.0 Neutrophils % (Manual) Lymphocytes % (Manual) Monocytes % (Manual) Platelet Estimate Giant Platelets pO2 VBG pH VBG pCO2 VBG HCO3 VBG Total CO2 VBG O2 Sat (Calc) VBG Base Excess VBG Potassium Glucose Lactate Sodium 140 Potassium 4.4 Chloride 108 H Carbon Dioxide 22 Anion Gap 15 BUN 47 H Creatinine 3.8 H Est GFR ( Amer) 14 Est GFR (Non-Af Amer) 11 POC Glucose (mg/dL) 284 H Random Glucose 270 H Serum Osmolality Calcium 9.4 Phosphorus 4.2 Magnesium 2.2 Total Bilirubin 0.8 AST 33 ALT 17 Alkaline Phosphatase 128 H Troponin I Total Protein 6.6 Albumin 3.7 Globulin 2.9 Albumin/Globulin Ratio 1.3 Venous Blood Potassium 10/28/18 11:03 WBC RBC Hgb Hct MCV MCH MCHC RDW Plt Count MPV Neut % (Auto) Lymph % (Auto) [place] % (Auto) Eos % (Auto) Baso % (Auto) Neut # (Auto) Lymph # (Auto) [place] # (Auto) Eos # (Auto) Baso # (Auto) Neutrophils % (Manual) Lymphocytes % (Manual) Monocytes % (Manual) Platelet Estimate Giant Platelets pO2 VBG pH VBG pCO2 VBG HCO3 VBG Total CO2 VBG O2 Sat (Calc) VBG Base Excess VBG Potassium Glucose Lactate Sodium Potassium Chloride Carbon Dioxide Anion Gap BUN Creatinine Est GFR ( Amer) Est GFR (Non-Af Amer) POC Glucose (mg/dL) > 500 H* Random Glucose Serum Osmolality Calcium Phosphorus Magnesium Total Bilirubin AST ALT Alkaline Phosphatase Troponin I Total Protein Albumin Globulin Albumin/Globulin Ratio Venous Blood Potassium Assessment & Plan (1) Seizure Assessment and Plan: Likely related to hyperglycemia. Keppra was given for myoclonic jerks as well. Continue treating underlying medical conditions. Neurology will follow EEG. Avoid medications that can lower the seizure threshold, such as anti-psychotics, SSRIs and certain antibiotics. Thank you for this consultation. Status: Acute
--- NOTE | 2018-10-28 15:21 | PCM.EEG ---
Electroencephalogram Report - Electroencephalogram Report Procedure Date: 10/28/18 Medication: Keppra, Insulin, ASA, Plavix Interpretation: Technical Information: This was a 16-channel EEG, 1-channel EKG routine EEG performed using [employer] equipment. Electrodes were applied using the 10/20 international placement system. Start; 9;21 AM End; 9;51 AM Total; 22 min There was significant artifact seen. Clinical Information: Alter mental status EEG Details During most of study was not discernible awake EEG architecture, the tracing showed diffuse bilateral attenuation with frequencies in the 4 to 5 Hz., without evidence of organization. There were epochs where awake architecture was seen, with frequencies in the 6 Hz range, this was poorly sustained. The were occasional bursts of high amplitude paroxysmal slowing. Drowsiness not seen, sleep not seen. Hyperventilation was not performed. Photic stimulation was not performed. Interictal activity; none Focal abnormality; none Impression: This is an abnormal EEG record that demonstrate the presence of moderate non specific diffuse disturbance of cortical activity, this is keeping with a diffuse hammer matter dysfunction, these findings are not specific. No seizures. Patient is not in status epilepticus.
[2018-10-28] MEDS ORDERED: (Lantus) Insulin Glargine, Recombinant SC SCH (22:00)
[2018-10-28] MEDS ORDERED: (Novolin R) Insulin Human Regular 100 units/ml vial SC SCH (22:00)
--- NOTE | 2018-10-28 22:35 | CP.PCM.PN ---
Subjective - Date & Time of Evaluation Date of Evaluation: 10/28/18 Time of Evaluation: 19:05 - Subjective Subjective: patient more responsive and oriented today. Glucose level still fluctuating. Insulin orders written by Dr. Gold. Patient was seen by neurology. EEG was done with final results pending. patient was also evaluated by Dr. Diaz who ordered dialysis schedule. Continue present supportive measures Objective - Vital Signs/Intake and Output Vital Signs (last 24 hours): Temp Pulse Resp BP Pulse Ox 98.6 F 81 20 148/88 97 10/28/18 20:00 10/28/18 20:00 10/28/18 20:00 10/28/18 20:00 10/28/18 20:00 Intake and Output: 10/28/18 10/29/18 18:59 06:59 Intake Total 920 120 Output Total 0 Balance 920 120 - Medications Medications: Current Medications Albuterol Sulfate (Albuterol 0.083% Inhal Luisa (2.5 Mg/3 Ml) Ud) 2.5 mg INH RQ6 PRN PRN Reason: Shortness of Breath Aspirin (Aspirin Chewable) 81 mg PO DAILY [facility] Last Admin: 10/28/18 10:42 Dose: 81 mg Clopidogrel Bisulfate (Plavix) 75 mg PO DAILY [facility] Last Admin: 10/28/18 10:43 Dose: 75 mg Dextrose (Dextrose 50% Inj) 0 ml IV STAT PRN; Protocol PRN Reason: Hypoglycemia Protocol Dextrose (Glutose 15) 0 gm PO ONCE PRN; Protocol PRN Reason: Hypoglycemia Protocol Enalapril Maleate (Vasotec) 10 mg PO DAILY [facility] Last Admin: 10/28/18 10:42 Dose: 10 mg Famotidine (Pepcid) 20 mg IVP DAILY [facility] Glucagon (Glucagen Diagnostic Kit) 0 mg IM STAT PRN; Protocol PRN Reason: Hypoglycemia Protocol Heparin Sodium (Porcine) (Heparin) 5,000 units SC Q12 [facility] Last Admin: 10/28/18 21:51 Dose: 5,000 units Heparin Sodium (Porcine) (Heparin) 2,000 units IVP MWF [facility] Last Admin: 10/27/18 14:57 Dose: 2,000 units Hydralazine HCl (Apresoline) 25 mg PO TID [facility] Last Admin: 10/28/18 17:35 Dose: 25 mg Dextrose (Dextrose 5% In Water 1000 Ml) 1,000 mls @ 0 mls/hr IV .Q0M PRN; Protocol PRN Reason: Hypoglycemia Protocol Influenza Virus Vaccine (Flucelvax Quad [id number] Syr) 60 mcg IM .ONCE ONE Stop: 10/30/18 11:30 Insulin Aspart (Novolog) 10 unit SC AC [facility] Last Admin: 10/28/18 17:35 Dose: 10 u Insulin Aspart (Novolog) 0 unit SC ACHS [facility] Last Admin: 10/28/18 21:40 Dose: Not Given Insulin Glargine (Lantus) 24 unit SC HS [facility] Last Admin: 10/28/18 21:52 Dose: 24 units Levetiracetam (Keppra) 500 mg PO DIAL [facility] Losartan Potassium (Cozaar) 50 mg PO DAILY [facility] Last Admin: 10/28/18 10:43 Dose: 50 mg Montelukast Sodium (Singulair) 10 mg PO DAILY [facility] Last Admin: 10/28/18 10:43 Dose: 10 mg Quetiapine Fumarate (Seroquel) 25 mg PO DAILY [facility] Last Admin: 10/28/18 10:44 Dose: 25 mg Rosuvastatin Calcium (Crestor) 5 mg PO HS [facility] Last Admin: 10/28/18 21:48 Dose: 5 mg Vitamin B Complex/Vit C/Folic Acid (Nephro-Marina) 1 tab PO 0800 [facility] Last Admin: 10/28/18 08:24 Dose: 1 tab - Labs Labs: 10/28/18 06:07 10/28/18 06:07 PT 11.3 SECONDS (9.7-12.2) 10/27/18 13:04 INR 1.0 10/27/18 13:04 APTT 27 SECONDS (21-34) 10/27/18 13:04 - Constitutional Appears: Chronically Ill - Head Exam Head Exam: NORMOCEPHALIC - Eye Exam Eye Exam: Normal appearance - ENT Exam ENT Exam: Normal Exam - Neck Exam Neck Exam: Normal Inspection - Respiratory Exam Respiratory Exam: Decreased Breath Sounds - Cardiovascular Exam Cardiovascular Exam: REGULAR RHYTHM - GI/Abdominal Exam GI & Abdominal Exam: Normal Bowel Sounds - Rectal Exam Rectal Exam: Deferred - Exam External exam: NORMAL EXTERNAL EXAM - Back Exam Back Exam: NORMAL INSPECTION - Neurological Exam Neurological Exam: Altered - Psychiatric Exam Psychiatric exam: Depressed - Skin Skin Exam: Dry Assessment and Plan (1) ESRD (end stage renal disease) Status: Acute (2) Lactic acidosis Status: Acute (3) Altered mental status Status: Acute (4) Arthralgia Status: Acute (5) Uncontrolled diabetes mellitus Status: Acute
--- NOTE | 2018-10-28 23:32 | CP.PCM.CON ---
History of Present Illness - History of Present Illness History of Present Illness: 82 years old female was sent from a dialysis center because she was found to have a blood glucose more than 500mg% and was slightly lethargic with jerky movements of the right arm. She is known to have an IDDM, a Hypertension, an ESRD on HD with frequent hospitalizations for the same problems, Admiitting ECG revealed a RSR with non-specific ST-T wave change. Serum TNI was slightly elevated. The patient denies any chest pain, SOB. The patient was treated with Insulin and was given Keppra with improvement of mental status and jerky movements of the right arm. An EEG did no disclose any seizures activities. Review of Systems - Review of Systems Systems not reviewed;Unavailable: Altered Mental Status Past Patient History - Infectious Disease Hx of Infectious Diseases: None - Tetanus Immunizations Tetanus Immunization: Unknown, Up to Date - Past Medical History & Family History Past Medical History?: Yes - Past Social History Smoking Status: Never Smoked - CARDIAC Hx Congestive Heart Failure: Yes Hx Hypertension: Yes - PULMONARY Hx Asthma: Yes Hx Bronchitis: Yes Hx Chronic Obstructive Pulmonary Disease (COPD): Yes Hx Emphysema: Yes - NEUROLOGICAL Hx Dementia: Yes Hx Migraine: Yes Hx Transient Ischemic Attacks (TIA): Yes - HEENT Hx HEENT Problems: Yes Hx Blind: Yes (Left eye.) - RENAL Hx Chronic Kidney Disease: Yes - ENDOCRINE/METABOLIC Hx Endocrine Disorders: Yes Hx Diabetes Mellitus Type 2: Yes - HEMATOLOGICAL/ONCOLOGICAL Hx Blood Disorders: No - INTEGUMENTARY Hx Dermatological Problems: Yes Hx Cellulitis: Yes Hx Eczema: Yes - MUSCULOSKELETAL/RHEUMATOLOGICAL Hx Arthritis: Yes - GASTROINTESTINAL Hx Gastrointestinal Disorders: Yes Hx Gastroesophageal Reflux: Yes Hx Hemorrhoids: Yes - GENITOURINARY/GYNECOLOGICAL Hx Genitourinary Disorders: Yes Hx Urinary Tract Infection: Yes - PSYCHIATRIC Hx Anxiety: Yes Hx Depression: Yes Hx Substance Use: No - SURGICAL HISTORY Hx Surgeries: Yes Hx Arteriovenous Shunt: Yes (right arm) - ANESTHESIA Hx Anesthesia: Yes Hx Anesthesia Reactions: No Hx Malignant Hyperthermia: No Meds Allergies/Adverse Reactions: Allergies Allergy/AdvReac Type Severity Reaction Status Date / Time No Known Allergies Allergy Verified 10/27/18 08:11 - Medications Medications: Current Medications Albuterol Sulfate (Albuterol 0.083% Inhal Luisa (2.5 Mg/3 Ml) Ud) 2.5 mg INH RQ6 PRN PRN Reason: Shortness of Breath Aspirin (Aspirin Chewable) 81 mg PO DAILY [facility] Last Admin: 10/28/18 10:42 Dose: 81 mg Clopidogrel Bisulfate (Plavix) 75 mg PO DAILY [facility] Last Admin: 10/28/18 10:43 Dose: 75 mg Dextrose (Dextrose 50% Inj) 0 ml IV STAT PRN; Protocol PRN Reason: Hypoglycemia Protocol Dextrose (Glutose 15) 0 gm PO ONCE PRN; Protocol PRN Reason: Hypoglycemia Protocol Enalapril Maleate (Vasotec) 10 mg PO DAILY [facility] Last Admin: 10/28/18 10:42 Dose: 10 mg Famotidine (Pepcid) 20 mg IVP DAILY [facility] Glucagon (Glucagen Diagnostic Kit) 0 mg IM STAT PRN; Protocol PRN Reason: Hypoglycemia Protocol Heparin Sodium (Porcine) (Heparin) 5,000 units SC Q12 [facility] Last Admin: 10/28/18 21:51 Dose: 5,000 units Heparin Sodium (Porcine) (Heparin) 2,000 units IVP MWF [facility] Last Admin: 10/27/18 14:57 Dose: 2,000 units Hydralazine HCl (Apresoline) 25 mg PO TID [facility] Last Admin: 10/28/18 17:35 Dose: 25 mg Dextrose (Dextrose 5% In Water 1000 Ml) 1,000 mls @ 0 mls/hr IV .Q0M PRN; Protocol PRN Reason: Hypoglycemia Protocol Influenza Virus Vaccine (Flucelvax Quad 9343-9306 Syr) 60 mcg IM .ONCE ONE Stop: 10/30/18 11:30 Insulin Aspart (Novolog) 10 unit SC AC [facility] Last Admin: 10/28/18 17:35 Dose: 10 u Insulin Aspart (Novolog) 0 unit SC ACHS [facility] Last Admin: 10/28/18 21:40 Dose: Not Given Insulin Glargine (Lantus) 24 unit SC HS [facility] Last Admin: 10/28/18 21:52 Dose: 24 units Levetiracetam (Keppra) 500 mg PO DIAL [facility] Losartan Potassium (Cozaar) 50 mg PO DAILY [facility] Last Admin: 10/28/18 10:43 Dose: 50 mg Montelukast Sodium (Singulair) 10 mg PO DAILY [facility] Last Admin: 10/28/18 10:43 Dose: 10 mg Quetiapine Fumarate (Seroquel) 25 mg PO DAILY [facility] Last Admin: 10/28/18 10:44 Dose: 25 mg Rosuvastatin Calcium (Crestor) 5 mg PO HS [facility] Last Admin: 10/28/18 21:48 Dose: 5 mg Vitamin B Complex/Vit C/Folic Acid (Nephro-Marina) 1 tab PO 0800 [facility] Last Admin: 10/28/18 08:24 Dose: 1 tab Physical Exam - Constitutional Appears: No Acute Distress, Chronically Ill - Head Exam Head Exam: NORMAL INSPECTION - Eye Exam Eye Exam: Normal appearance - ENT Exam ENT Exam: Normal Exam - Neck Exam Neck exam: Positive for: Normal Inspection - Respiratory Exam Respiratory Exam: Clear to Auscultation Bilateral - Cardiovascular Exam Cardiovascular Exam: REGULAR RHYTHM - GI/Abdominal Exam GI & Abdominal Exam: Normal Bowel Sounds, Soft - Rectal Exam Rectal Exam: Deferred - Extremities Exam Extremities exam: Positive for: normal inspection - Back Exam Back exam: NORMAL INSPECTION - Neurological Exam Neurological exam: Alert - Psychiatric Exam Psychiatric exam: Anxious - Skin Skin Exam: Dry, Intact, Normal Color, Warm Results - Vital Signs Recent Vital Signs: Last Vital Signs Temp 98.6 F 10/28/18 20:00 Pulse 81 10/28/18 20:00 Resp 20 10/28/18 20:00 BP 148/88 10/28/18 20:00 Pulse Ox 97 10/28/18 20:00 - Labs Result Diagrams: 10/28/18 06:07 10/28/18 06:07 Labs: Laboratory Results - last 24 hr 10/27/18 10/28/18 10/28/18 22:38 01:43 05:57 WBC RBC Hgb Hct MCV MCH MCHC RDW Plt Count MPV Neut % (Auto) Lymph % (Auto) [place] % (Auto) Eos % (Auto) Baso % (Auto) Neut # (Auto) Lymph # (Auto) [place] # (Auto) Eos # (Auto) Baso # (Auto) Sodium Potassium Chloride Carbon Dioxide Anion Gap BUN Creatinine Est GFR ( Amer) Est GFR (Non-Af Amer) POC Glucose (mg/dL) 199 H 258 H 284 H Random Glucose Calcium Phosphorus Magnesium Total Bilirubin AST ALT Alkaline Phosphatase Total Protein Albumin Globulin Albumin/Globulin Ratio 10/28/18 10/28/18 10/28/18 06:07 06:07 11:03 WBC 9.9 RBC 4.52 Hgb 12.3 Hct 38.9 MCV 86.0 D MCH 27.2 MCHC 31.6 L RDW 18.3 H Plt Count 201 MPV 10.1 Neut % (Auto) 73.9 Lymph % (Auto) 16.8 L [place] % (Auto) 8.4 Eos % (Auto) 0.5 Baso % (Auto) 0.4 Neut # (Auto) 7.3 H Lymph # (Auto) 1.7 [place] # (Auto) 0.8 Eos # (Auto) 0.1 Baso # (Auto) 0.0 Sodium 140 Potassium 4.4 Chloride 108 H Carbon Dioxide 22 Anion Gap 15 BUN 47 H Creatinine 3.8 H Est GFR ( Amer) 14 Est GFR (Non-Af Amer) 11 POC Glucose (mg/dL) > 500 H* Random Glucose 270 H Calcium 9.4 Phosphorus 4.2 Magnesium 2.2 Total Bilirubin 0.8 AST 33 ALT 17 Alkaline Phosphatase 128 H Total Protein 6.6 Albumin 3.7 Globulin 2.9 Albumin/Globulin Ratio 1.3 10/28/18 16:15 WBC RBC Hgb Hct MCV MCH MCHC RDW Plt Count MPV Neut % (Auto) Lymph % (Auto) [place] % (Auto) Eos % (Auto) Baso % (Auto) Neut # (Auto) Lymph # (Auto) [place] # (Auto) Eos # (Auto) Baso # (Auto) Sodium Potassium Chloride Carbon Dioxide Anion Gap BUN Creatinine Est GFR ( Amer) Est GFR (Non-Af Amer) POC Glucose (mg/dL) 112 H Random Glucose Calcium Phosphorus Magnesium Total Bilirubin AST ALT Alkaline Phosphatase Total Protein Albumin Globulin Albumin/Globulin Ratio Assessment & Plan (1) Hyperosmolar non-ketotic state in patient with type 2 diabetes mellitus Assessment and Plan: To continue Insulin therapy. Status: Acute (2) Seizure Assessment and Plan: On Keppra. Status: Acute (3) ESRD (end stage renal disease) Assessment and Plan: HD as per Nephrologists. Status: Acute
[2018-10-29 06:23] LABS: BASO % 0.7 % (0.0-2.0); EOS # 0.2 K/uL (0.0-0.7); EOS % 2.7 % (0.0-4.0); HEMOGLOBIN 12.2 g/dL (11.0-16.0); LYMPH # 1.8 K/uL (1.0-4.3); LYMPH % 26.3 % (20.0-40.0); MEAN CELL VOLUME 85.8 fL (81.0-99.0); MEAN CORPUSCULAR HEMOGLOBIN 27.3 pg (27.0-31.0); MEAN CORPUSCULAR HGB CONC 31.8 g/dL (33.0-37.0); MEAN PLATELET VOLUME 9.9 fL (7.2-11.7); MONO # 0.9 K/uL (0.0-0.8); MONO % 12.6 % (0.0-10.0); NEUT % 57.7 % (50.0-75.0); RBC 4.47 Mil/uL (3.80-5.20); RED CELL DISTRIBUTION WIDTH 17.3 % (11.5-14.5); WHITE BLOOD COUNT 6.9 K/uL (4.8-10.8)
[2018-10-29 06:59] LABS: ALB/GLOB RATIO 1.2 (1.0-2.1); ALBUMIN 3.4 g/dL (3.5-5.0); CALCIUM 9.1 mg/dl (8.6-10.4)
[2018-10-29] MEDS: (Novolog) Insulin Aspart, Recombinant 100 u/ml 10 ml vial SC SCH ×7 (07:58→21:45)
[2018-10-29] MEDS: Multivitamin Vitamin B Complex (Nephro-Vite) Tab PO SCH (08:02)
--- NOTE | 2018-10-29 12:15 | CP.PCM.CON ---
History of Present Illness - History of Present Illness History of Present Illness: Surgery consult note for Dr. Mccormick 83 F w/ PMhx of ESRD on HD MWF, CHF, HTN, DM, asthma/emphysema, anxiety and dementia, came to ED from her dialysis center for high blood sugars. On admission, patient found to be in DKA, w/ anion gap. Through medical mangement, DKA has resolved and gap has closed. Per nursing staff, patient was supposed to receive dialysis, however, 2 different nurses attempted to access AVF w/ both attempts failing and producing only clotted blood. No dialysis was performed today. Patient had received dialysis on Saturday with no issues. Patient actively has no complaints; however, an accurate ROS is limited due to underlying dementia (patient believes it is 1929). Patient denies headaches, vision changes, chest pain, SOB, abdominal pain, nausea, vomiting, leg pain. Pmhx: as stated in HPI Shx: AV fistula, R IJ permacath in 2016 Allergies: NKDA Sochx: denies tobacco, alcohol or drug use Meds: see records. Review of Systems - Review of Systems Systems not reviewed;Unavailable: Dementia Past Patient History - Infectious Disease Hx of Infectious Diseases: None - Tetanus Immunizations Tetanus Immunization: Unknown, Up to Date - Past Medical History & Family History Past Medical History?: Yes - Past Social History Smoking Status: Never Smoked - CARDIAC Hx Congestive Heart Failure: Yes Hx Hypertension: Yes - PULMONARY Hx Asthma: Yes Hx Bronchitis: Yes Hx Chronic Obstructive Pulmonary Disease (COPD): Yes Hx Emphysema: Yes - NEUROLOGICAL Hx Dementia: Yes Hx Migraine: Yes Hx Transient Ischemic Attacks (TIA): Yes - HEENT Hx HEENT Problems: Yes Hx Blind: Yes (Left eye.) - RENAL Hx Chronic Kidney Disease: Yes - ENDOCRINE/METABOLIC Hx Endocrine Disorders: Yes Hx Diabetes Mellitus Type 2: Yes - HEMATOLOGICAL/ONCOLOGICAL Hx Blood Disorders: No - INTEGUMENTARY Hx Dermatological Problems: Yes Hx Cellulitis: Yes Hx Eczema: Yes - MUSCULOSKELETAL/RHEUMATOLOGICAL Hx Arthritis: Yes - GASTROINTESTINAL Hx Gastrointestinal Disorders: Yes Hx Gastroesophageal Reflux: Yes Hx Hemorrhoids: Yes - GENITOURINARY/GYNECOLOGICAL Hx Genitourinary Disorders: Yes Hx Urinary Tract Infection: Yes - PSYCHIATRIC Hx Anxiety: Yes Hx Depression: Yes Hx Substance Use: No - SURGICAL HISTORY Hx Surgeries: Yes Hx Arteriovenous Shunt: Yes (right arm) - ANESTHESIA Hx Anesthesia: Yes Hx Anesthesia Reactions: No Hx Malignant Hyperthermia: No Meds Allergies/Adverse Reactions: Allergies Allergy/AdvReac Type Severity Reaction Status Date / Time No Known Allergies Allergy Verified 10/27/18 08:11 - Medications Medications: Current Medications Albuterol Sulfate (Albuterol 0.083% Inhal Luisa (2.5 Mg/3 Ml) Ud) 2.5 mg INH RQ6 PRN PRN Reason: Shortness of Breath Aspirin (Aspirin Chewable) 81 mg PO DAILY [facility] Last Admin: 10/29/18 09:54 Dose: 81 mg Clopidogrel Bisulfate (Plavix) 75 mg PO DAILY [facility] Last Admin: 10/29/18 09:53 Dose: 75 mg Dextrose (Dextrose 50% Inj) 0 ml IV STAT PRN; Protocol PRN Reason: Hypoglycemia Protocol Dextrose (Glutose 15) 0 gm PO ONCE PRN; Protocol PRN Reason: Hypoglycemia Protocol Enalapril Maleate (Vasotec) 10 mg PO DAILY [facility] Last Admin: 10/29/18 09:53 Dose: 10 mg Famotidine (Pepcid) 20 mg IVP DAILY [facility] Last Admin: 10/29/18 09:54 Dose: 20 mg Glucagon (Glucagen Diagnostic Kit) 0 mg IM STAT PRN; Protocol PRN Reason: Hypoglycemia Protocol Heparin Sodium (Porcine) (Heparin) 5,000 units SC Q12 [facility] Last Admin: 10/29/18 09:54 Dose: 5,000 units Heparin Sodium (Porcine) (Heparin) 2,000 units IVP MWF [facility] Last Admin: 10/27/18 14:57 Dose: 2,000 units Hydralazine HCl (Apresoline) 25 mg PO TID [facility] Last Admin: 10/29/18 09:53 Dose: 25 mg Dextrose (Dextrose 5% In Water 1000 Ml) 1,000 mls @ 0 mls/hr IV .Q0M PRN; Protocol PRN Reason: Hypoglycemia Protocol Influenza Virus Vaccine (Flucelvax Quad 3334-7708 Syr) 60 mcg IM .ONCE ONE Stop: 10/30/18 11:30 Insulin Aspart (Novolog) 10 unit SC AC [facility] Last Admin: 10/29/18 11:51 Dose: 10 u Insulin Aspart (Novolog) 0 unit SC ACHS [facility] Last Admin: 10/29/18 11:52 Dose: 3 u Insulin Glargine (Lantus) 24 unit SC HS [facility] Last Admin: 10/28/18 21:52 Dose: 24 units Levetiracetam (Keppra) 500 mg PO DIAL [facility] Losartan Potassium (Cozaar) 50 mg PO DAILY [facility] Last Admin: 10/29/18 09:54 Dose: 50 mg Montelukast Sodium (Singulair) 10 mg PO DAILY [facility] Last Admin: 10/29/18 09:53 Dose: 10 mg Quetiapine Fumarate (Seroquel) 25 mg PO DAILY [facility] Last Admin: 10/28/18 10:44 Dose: 25 mg Rosuvastatin Calcium (Crestor) 5 mg PO HS [facility] Last Admin: 10/28/18 21:48 Dose: 5 mg Vitamin B Complex/Vit C/Folic Acid (Nephro-Marina) 1 tab PO 0800 [facility] Last Admin: 10/29/18 08:02 Dose: 1 tab Physical Exam - Constitutional Appears: Non-toxic, No Acute Distress - Head Exam Head Exam: NORMAL INSPECTION - Eye Exam Eye Exam: Normal appearance - ENT Exam ENT Exam: Mucous Membranes Moist - Respiratory Exam Respiratory Exam: Clear to Auscultation Bilateral, NORMAL BREATHING PATTERN. absent: Rales, Rhonchi, Wheezes - Cardiovascular Exam Cardiovascular Exam: +S1, +S2. absent: Systolic Murmur - GI/Abdominal Exam GI & Abdominal Exam: Normal Bowel Sounds, Soft - Extremities Exam Extremities exam: Negative for: calf tenderness, pedal edema Additional comments: R forearm AVF, minimal palpable thrill - Back Exam Back exam: absent: CVA tenderness (L), CVA tenderness (R) - Neurological Exam Neurological exam: Alert, Oriented x3 - Psychiatric Exam Psychiatric exam: Normal Affect, Normal Mood - Skin Skin Exam: Dry, Normal Color Results - Vital Signs Recent Vital Signs: Last Vital Signs Temp 97.8 F 10/29/18 12:00 Pulse 69 10/29/18 12:00 Resp 20 10/29/18 12:00 BP 153/67 H 10/29/18 12:00 Pulse Ox 97 10/29/18 12:00 - Labs Result Diagrams: 10/29/18 06:20 10/29/18 06:20 Labs: Laboratory Results - last 24 hr 10/28/18 10/28/18 10/28/18 16:15 21:20 22:30 WBC RBC Hgb Hct MCV MCH MCHC RDW Plt Count MPV Neut % (Auto) Lymph % (Auto) [place] % (Auto) Eos % (Auto) Baso % (Auto) Neut # (Auto) Lymph # (Auto) [place] # (Auto) Eos # (Auto) Baso # (Auto) Sodium Potassium Chloride Carbon Dioxide Anion Gap BUN Creatinine Est GFR ( Amer) Est GFR (Non-Af Amer) POC Glucose (mg/dL) 112 H 273 H Random Glucose Hemoglobin A1c Calcium Phosphorus Magnesium Total Bilirubin AST ALT Alkaline Phosphatase Troponin I 0.0870 Total Protein Albumin Globulin Albumin/Globulin Ratio Triglycerides Cholesterol LDL Cholesterol Direct HDL Cholesterol TSH 3rd Generation 10/29/18 10/29/18 10/29/18 06:20 06:20 06:20 WBC 6.9 RBC 4.47 Hgb 12.2 Hct 38.4 MCV 85.8 MCH 27.3 MCHC 31.8 L RDW 17.3 H Plt Count 183 MPV 9.9 Neut % (Auto) 57.7 Lymph % (Auto) 26.3 [place] % (Auto) 12.6 H Eos % (Auto) 2.7 Baso % (Auto) 0.7 Neut # (Auto) 4.0 Lymph # (Auto) 1.8 [place] # (Auto) 0.9 H Eos # (Auto) 0.2 Baso # (Auto) 0.0 Sodium 135 Potassium 4.3 Chloride 103 Carbon Dioxide 23 Anion Gap 13 BUN 60 H Creatinine 4.7 H Est GFR ( Amer) 11 Est GFR (Non-Af Amer) 9 POC Glucose (mg/dL) Random Glucose 307 H Hemoglobin A1c 12.6 H Calcium 9.1 Phosphorus 4.1 Magnesium 2.3 Total Bilirubin 0.6 AST 27 ALT 20 Alkaline Phosphatase 121 Troponin I Total Protein 6.3 Albumin 3.4 L Globulin 2.8 Albumin/Globulin Ratio 1.2 Triglycerides 226 H D Cholesterol 161 LDL Cholesterol Direct 66 HDL Cholesterol 75 H TSH 3rd Generation 0.04 L 10/29/18 10/29/18 07:28 11:40 WBC RBC Hgb Hct MCV MCH MCHC RDW Plt Count MPV Neut % (Auto) Lymph % (Auto) [place] % (Auto) Eos % (Auto) Baso % (Auto) Neut # (Auto) Lymph # (Auto) [place] # (Auto) Eos # (Auto) Baso # (Auto) Sodium Potassium Chloride Carbon Dioxide Anion Gap BUN Creatinine Est GFR ( Amer) Est GFR (Non-Af Amer) POC Glucose (mg/dL) 310 H 324 H Random Glucose Hemoglobin A1c Calcium Phosphorus Magnesium Total Bilirubin AST ALT Alkaline Phosphatase Troponin I Total Protein Albumin Globulin Albumin/Globulin Ratio Triglycerides Cholesterol LDL Cholesterol Direct HDL Cholesterol TSH 3rd Generation Assessment & Plan - Assessment and Plan (Free Text) Assessment: 83 F with unaccessible AVF on R forearm Plan: - plan for fistulogram/revision/ permacath tomorrow - NPO past MN Further recs per Dr. Anny Diaz, PGY1
--- NOTE | 2018-10-29 17:20 | CP.PCM.PN ---
Subjective - Date & Time of Evaluation Date of Evaluation: 10/29/18 Time of Evaluation: 17:17 - Subjective Subjective: Neuro Follow-Up Note: Mrs. Prater was evaluated this afternoon at bedside. She admits to feeling generally well. She denies any complaints; no h/a, dizziness, visual changes, chest pain, sob, abd pain, n/v/d. Objective - Vital Signs/Intake and Output Vital Signs (last 24 hours): Temp Pulse Resp BP Pulse Ox 98.1 F 70 20 147/74 98 10/29/18 16:15 10/29/18 16:15 10/29/18 16:15 10/29/18 16:15 10/29/18 16:15 Intake and Output: 10/29/18 10/29/18 06:59 18:59 Intake Total 240 480 Balance 240 480 - Medications Medications: Current Medications Albuterol Sulfate (Albuterol 0.083% Inhal Luisa (2.5 Mg/3 Ml) Ud) 2.5 mg INH RQ6 PRN PRN Reason: Shortness of Breath Aspirin (Aspirin Chewable) 81 mg PO DAILY [facility] Last Admin: 10/29/18 09:54 Dose: 81 mg Clopidogrel Bisulfate (Plavix) 75 mg PO DAILY [facility] Last Admin: 10/29/18 09:53 Dose: 75 mg Dextrose (Dextrose 50% Inj) 0 ml IV STAT PRN; Protocol PRN Reason: Hypoglycemia Protocol Dextrose (Glutose 15) 0 gm PO ONCE PRN; Protocol PRN Reason: Hypoglycemia Protocol Enalapril Maleate (Vasotec) 10 mg PO DAILY [facility] Last Admin: 10/29/18 09:53 Dose: 10 mg Famotidine (Pepcid) 20 mg IVP DAILY [facility] Last Admin: 10/29/18 09:54 Dose: 20 mg Glucagon (Glucagen Diagnostic Kit) 0 mg IM STAT PRN; Protocol PRN Reason: Hypoglycemia Protocol Heparin Sodium (Porcine) (Heparin) 5,000 units SC Q12 [facility] Last Admin: 10/29/18 09:54 Dose: 5,000 units Heparin Sodium (Porcine) (Heparin) 2,000 units IVP MWF [facility] Last Admin: 10/27/18 14:57 Dose: 2,000 units Hydralazine HCl (Apresoline) 25 mg PO TID [facility] Last Admin: 10/29/18 13:53 Dose: 25 mg Dextrose (Dextrose 5% In Water 1000 Ml) 1,000 mls @ 0 mls/hr IV .Q0M PRN; Protocol PRN Reason: Hypoglycemia Protocol Influenza Virus Vaccine (Flucelvax Quad 9080-3001 Syr) 60 mcg IM .ONCE ONE Stop: 10/30/18 11:30 Insulin Aspart (Novolog) 0 unit SC ACHS [facility] Last Admin: 10/29/18 11:52 Dose: 3 u Insulin Aspart (Novolog) 14 unit SC AC [facility] Insulin Glargine (Lantus) 30 unit SC HS [facility] Levetiracetam (Keppra) 500 mg PO DIAL [facility] Losartan Potassium (Cozaar) 50 mg PO DAILY [facility] Last Admin: 10/29/18 09:54 Dose: 50 mg Montelukast Sodium (Singulair) 10 mg PO DAILY [facility] Last Admin: 10/29/18 09:53 Dose: 10 mg Quetiapine Fumarate (Seroquel) 25 mg PO DAILY [facility] Last Admin: 10/28/18 10:44 Dose: 25 mg Rosuvastatin Calcium (Crestor) 5 mg PO HS [facility] Last Admin: 10/28/18 21:48 Dose: 5 mg Vitamin B Complex/Vit C/Folic Acid (Nephro-Marina) 1 tab PO 0800 [facility] Last Admin: 10/29/18 08:02 Dose: 1 tab - Labs Labs: 10/29/18 06:20 10/29/18 06:20 PT 11.3 SECONDS (9.7-12.2) 10/27/18 13:04 INR 1.0 10/27/18 13:04 APTT 27 SECONDS (21-34) 10/27/18 13:04 - Constitutional Appears: Well, Non-toxic, No Acute Distress - Head Exam Head Exam: ATRAUMATIC, NORMAL INSPECTION, NORMOCEPHALIC - Eye Exam Eye Exam: EOMI, Normal appearance Pupil Exam: NORMAL ACCOMODATION, PERRL - ENT Exam ENT Exam: Mucous Membranes Moist, Normal Exam - Neck Exam Neck Exam: Full ROM, Normal Inspection - Respiratory Exam Respiratory Exam: NORMAL BREATHING PATTERN - GI/Abdominal Exam GI & Abdominal Exam: Soft - Extremities Exam Extremities Exam: Full ROM Additional comments: HD to right arm Jerky movements noted to right forearm - Back Exam Back Exam: Full ROM, NORMAL INSPECTION - Neurological Exam Neurological Exam: Alert, Awake, CN II-XII Intact, Reflexes Normal Neuro motor strength exam: Left Upper Extremity: 4, Right Upper Extremity: 4, Left Lower Extremity: 4, Right Lower Extremity: 4 Additional comments: Speech clear, fluid Awake, alert; follows all commands Strength to BUE and BLE equal No sensory deficits + occasional jerky movements noted to right forearm alone - Psychiatric Exam Psychiatric exam: Normal Affect, Normal Mood - Skin Skin Exam: Normal Color Assessment and Plan (1) Seizure Assessment & Plan: Imaging reviewed: -EEG (10/28/18): This is an abnormal EEG record that demonstrate the presence of moderate non specific diffuse disturbance of cortical activity, this is keeping with a diffuse hammer matter dysfunction, these findings are not specific. No seizures. Patient is not in status epilepticus. -CT Head (10/27/18): No acute intracranial abnormality. Additional findings as above. -Continue Keppra 500 mg PO QHD (MWF) -Continue PT -Continue current treatment for other medical issues including nonfunctioning HD catheter and blood sugar control. Case discussed with Dr. Sanabria Status: Acute
--- NOTE | 2018-10-29 17:43 | PN ---
DATE: 10/29/2018 ENDOCRINOLOGY FOLLOWUP NOTE LOCATION: Room 357. SUBJECTIVE: This is an 82-year-old female with recent uncontrolled type 2 insulin requiring diabetes, now being followed closely for metabolic management. Her glycemic levels are fluctuating but improved and the glucose values overnight have ranged from 273 to 310 and 324 at lunchtime today as noted. Her A1c is extremely elevated at 12.6% indicative of suboptimal metabolic control of her diabetic condition even prior to this admission. LABORATORY DATA: Her latest chemistry showed a BUN of 16, sodium 135, potassium 4.3, chloride 103, CO2 of 23, glucose 307, and creatinine 4.7. IMPRESSION: So at this time, once again she has extremes in the up glycemic fluctuations as noted with variability of her oral intake. PLAN OF MANAGEMENT: Will modify once again her baseline bolus insulin regimen and increase the NovoLog to 14 units t.i.d. before meals to start today as ordered. We will also increase the basal insulin with Lantus at 30 units subcu at bedtime daily to start tonight as ordered. We will obtain serial chemistries and supplement accordingly as needed. We will follow. Bella Gold MD
[2018-10-29] MEDS: (Lantus) Insulin Glargine, Recombinant SC SCH (21:45)
--- NOTE | 2018-10-29 22:41 | CP.PCM.PN ---
Subjective - Date & Time of Evaluation Date of Evaluation: 10/29/18 Time of Evaluation: 13:35 - Subjective Subjective: patient is more responsive today. blood sugar is still elevated in the area of 324. Patient is scheduled for surgical procedure in a.m. EEG results are nonspecific. cardiology evaluation by Dr. Mei noted. continue present sup portive measures, Objective - Vital Signs/Intake and Output Vital Signs (last 24 hours): Temp Pulse Resp BP Pulse Ox 98.1 F 70 20 147/74 98 10/29/18 16:15 10/29/18 16:15 10/29/18 16:15 10/29/18 16:15 10/29/18 16:15 Intake and Output: 10/29/18 10/30/18 18:59 06:59 Intake Total 480 Balance 480 - Medications Medications: Current Medications Albuterol Sulfate (Albuterol 0.083% Inhal Luisa (2.5 Mg/3 Ml) Ud) 2.5 mg INH RQ6 PRN PRN Reason: Shortness of Breath Aspirin (Aspirin Chewable) 81 mg PO DAILY [facility] Last Admin: 10/29/18 09:54 Dose: 81 mg Clopidogrel Bisulfate (Plavix) 75 mg PO DAILY [facility] Last Admin: 10/29/18 09:53 Dose: 75 mg Dextrose (Dextrose 50% Inj) 0 ml IV STAT PRN; Protocol PRN Reason: Hypoglycemia Protocol Dextrose (Glutose 15) 0 gm PO ONCE PRN; Protocol PRN Reason: Hypoglycemia Protocol Enalapril Maleate (Vasotec) 10 mg PO DAILY [facility] Last Admin: 10/29/18 09:53 Dose: 10 mg Famotidine (Pepcid) 20 mg IVP DAILY [facility] Last Admin: 10/29/18 09:54 Dose: 20 mg Glucagon (Glucagen Diagnostic Kit) 0 mg IM STAT PRN; Protocol PRN Reason: Hypoglycemia Protocol Heparin Sodium (Porcine) (Heparin) 5,000 units SC Q12 [facility] Last Admin: 10/29/18 21:44 Dose: 5,000 units Heparin Sodium (Porcine) (Heparin) 2,000 units IVP MWF [facility] Last Admin: 10/27/18 14:57 Dose: 2,000 units Hydralazine HCl (Apresoline) 25 mg PO TID [facility] Last Admin: 10/29/18 17:32 Dose: 25 mg Dextrose (Dextrose 5% In Water 1000 Ml) 1,000 mls @ 0 mls/hr IV .Q0M PRN; Protocol PRN Reason: Hypoglycemia Protocol Influenza Virus Vaccine (Flucelvax Quad [id number] Syr) 60 mcg IM .ONCE ONE Stop: 10/30/18 11:30 Insulin Aspart (Novolog) 0 unit SC ACHS [facility] Last Admin: 10/29/18 21:45 Dose: Not Given Insulin Aspart (Novolog) 14 unit SC AC [facility] Last Admin: 10/29/18 16:30 Dose: 14 units Insulin Glargine (Lantus) 30 unit SC HS [facility] Last Admin: 10/29/18 21:45 Dose: Not Given Levetiracetam (Keppra) 500 mg PO DIAL [facility] Losartan Potassium (Cozaar) 50 mg PO DAILY [facility] Last Admin: 10/29/18 09:54 Dose: 50 mg Montelukast Sodium (Singulair) 10 mg PO DAILY [facility] Last Admin: 10/29/18 09:53 Dose: 10 mg Quetiapine Fumarate (Seroquel) 25 mg PO DAILY [facility] Last Admin: 10/28/18 10:44 Dose: 25 mg Rosuvastatin Calcium (Crestor) 5 mg PO HS [facility] Last Admin: 10/29/18 21:42 Dose: 5 mg Vitamin B Complex/Vit C/Folic Acid (Nephro-Marina) 1 tab PO 0800 [facility] Last Admin: 10/29/18 08:02 Dose: 1 tab - Labs Labs: 10/29/18 06:20 10/29/18 06:20 PT 11.3 SECONDS (9.7-12.2) 10/27/18 13:04 INR 1.0 10/27/18 13:04 APTT 27 SECONDS (21-34) 10/27/18 13:04 - Constitutional Appears: Chronically Ill - Head Exam Head Exam: NORMOCEPHALIC - Eye Exam Eye Exam: Normal appearance Pupil Exam: NORMAL ACCOMODATION - ENT Exam ENT Exam: Normal Exam - Neck Exam Neck Exam: Normal Inspection - Respiratory Exam Respiratory Exam: Decreased Breath Sounds - Cardiovascular Exam Cardiovascular Exam: REGULAR RHYTHM - GI/Abdominal Exam GI & Abdominal Exam: Normal Bowel Sounds - Rectal Exam Rectal Exam: Deferred - Exam External exam: NORMAL EXTERNAL EXAM - Back Exam Back Exam: NORMAL INSPECTION - Neurological Exam Neurological Exam: Oriented x3 - Psychiatric Exam Psychiatric exam: Depressed - Skin Skin Exam: Dry Assessment and Plan (1) ESRD (end stage renal disease) Status: Acute (2) Lactic acidosis Status: Acute (3) Altered mental status Status: Acute (4) Arthralgia Status: Acute (5) Uncontrolled diabetes mellitus Status: Acute
[2018-10-30 08:13] LABS: BASO % 0.8 % (0.0-2.0); EOS # 0.2 K/uL (0.0-0.7); EOS % 4.2 % (0.0-4.0); HEMOGLOBIN 11.5 g/dL (11.0-16.0); LYMPH # 1.6 K/uL (1.0-4.3); LYMPH % 28.8 % (20.0-40.0); MEAN CORPUSCULAR HEMOGLOBIN 26.6 pg (27.0-31.0); MEAN CORPUSCULAR HGB CONC 31.3 g/dL (33.0-37.0); MEAN PLATELET VOLUME 9.6 fL (7.2-11.7); MONO # 0.8 K/uL (0.0-0.8); MONO % 13.8 % (0.0-10.0); NEUT % 52.4 % (50.0-75.0); NRBC % 0.1 % (0.0-2.0); RBC 4.31 Mil/uL (3.80-5.20); RED CELL DISTRIBUTION WIDTH 17.5 % (11.5-14.5); WHITE BLOOD COUNT 5.6 K/uL (4.8-10.8)
[2018-10-30] MEDS: (Novolog) Insulin Aspart, Recombinant 100 u/ml 10 ml vial SC SCH ×7 (08:19→21:38)
[2018-10-30] MEDS: Multivitamin Vitamin B Complex (Nephro-Vite) Tab PO SCH (08:19)
[2018-10-30 08:23] LABS: INR 0.9
[2018-10-30 08:32] LABS: ALB/GLOB RATIO 1.2 (1.0-2.1); ALBUMIN 3.2 g/dL (3.5-5.0); CALCIUM 8.7 mg/dl (8.6-10.4)
[2018-10-30 09:00] LABS: PROTHROMBIN TIME 9.8 SECONDS (9.7-12.2)
[2018-10-30] MEDS ORDERED: Influenza Vaccine 60 mcg/0.5 mL SYR (4YR UP) IM ONE (11:29)
[2018-10-30] MEDS ORDERED: ceFAZolin 1 gm in NS 1 GM/100 ML BAG IVPB ONE (13:48)
[2018-10-30] MEDS ORDERED: HEPARIN-NS 5,000 UNITS/500 ML 5,000 UNIT/500 ML BAG IV ONE (13:48)
[2018-10-30] MEDS ORDERED: Lidocaine Hydrochloride 10 ML INJ ONE ×2 (13:48→16:23)
[2018-10-30] MEDS ORDERED: Midazolam 2 MG/2 ML VIAL ONE (15:31)
[2018-10-30] MEDS ORDERED: Iohexol 240 (50 ml) ONE ×2 (15:49→16:00)
--- NOTE | 2018-10-30 16:39 | PCM.SURG1 ---
Surgeon's Initial Post Op Note - Surgeon's Notes Surgeon: morgan Acid Supervisor: 0 Type of Anesthesia: IV Sedation Anesthesia Administered By: jed Pre-Operative Diagnosis: clotted fistula right arm/renal failure Operative Findings: right sided central stents. catheter placed from left jugular Post-Operative Diagnosis: same Operation Performed: permacath left jugular with c arm and us guided puncture Specimen/Specimens Removed: o Estimated Blood Loss: EBL {In ML}: 75 Blood Products Given: N/A Drains Used: No Drains Post-Op Condition: Good Date of Surgery/Procedure: 10/30/18 Time of Surgery/Procedure: 16:39
[2018-10-30] MEDS ORDERED: Sodium Chloride 0.9% 500 ML IV ONE (16:40)
--- NOTE | 2018-10-30 17:05 | RAD ---
Date of service: 10/30/2018 HISTORY: left permacath COMPARISON: 10/27/2018 at 0900 hr FINDINGS: LUNGS: Lung volumes shallow. The prominence/a confluence of the right perihilar vascular soft tissues is as before. Some central pulmonary venous congestion is inferred. Some slight interval increase in pulmonary venous congestion suspect PLEURA: Small left pleural effusion likely. No pneumothorax appreciated CARDIOVASCULAR: There is presence of aortic atherosclerotic calcification on x-ray. Mild cardiomegaly-similar mild pulmonary venous congestion-similar to perhaps minimally increased. Interval insertion left subclavian PermCath. Right subclavian vascular stent similar-appearing. OSSEOUS STRUCTURES: Thoracic spondylosis. Right shoulder arthrosis VISUALIZED UPPER ABDOMEN: Normal. OTHER FINDINGS: None. IMPRESSION: Interval insertion left PermCath tip right atrium. No pneumothorax seen. Cardiomegaly similar. Central pulmonary vascular congestion probably slightly increased since prior exam. Small left pleural effusion suspect. Other findings as above.
--- NOTE | 2018-10-30 19:46 | CP.PCM.PN ---
Subjective - Date & Time of Evaluation Date of Evaluation: 10/30/18 Time of Evaluation: 18:00 - Subjective Subjective: seen on renal f/u All previous emr reviewed feeling and looking much better s/ l perm cath by dr duarte getting hd today Objective - Vital Signs/Intake and Output Vital Signs (last 24 hours): Temp Pulse Resp BP Pulse Ox 97.7 F 80 16 122/72 100 10/30/18 17:45 10/30/18 17:45 10/30/18 17:45 10/30/18 18:45 10/30/18 17:45 Intake and Output: 10/30/18 10/31/18 18:59 06:59 Intake Total 600 Balance 600 - Medications Medications: Current Medications Albuterol Sulfate (Albuterol 0.083% Inhal Luisa (2.5 Mg/3 Ml) Ud) 2.5 mg INH RQ6 PRN PRN Reason: Shortness of Breath Aspirin (Aspirin Chewable) 81 mg PO DAILY [facility] Last Admin: 10/30/18 09:40 Dose: Not Given Clopidogrel Bisulfate (Plavix) 75 mg PO DAILY [facility] Last Admin: 10/30/18 09:41 Dose: Not Given Dextrose (Dextrose 50% Inj) 0 ml IV STAT PRN; Protocol PRN Reason: Hypoglycemia Protocol Dextrose (Glutose 15) 0 gm PO ONCE PRN; Protocol PRN Reason: Hypoglycemia Protocol Enalapril Maleate (Vasotec) 10 mg PO DAILY [facility] Last Admin: 10/30/18 09:41 Dose: Not Given Famotidine (Pepcid) 20 mg IVP DAILY [facility] Last Admin: 10/30/18 10:19 Dose: 20 mg Glucagon (Glucagen Diagnostic Kit) 0 mg IM STAT PRN; Protocol PRN Reason: Hypoglycemia Protocol Heparin Sodium (Porcine) (Heparin) 5,000 units SC Q12 [facility] Last Admin: 10/30/18 09:40 Dose: Not Given Hydralazine HCl (Apresoline) 25 mg PO TID [facility] Last Admin: 10/30/18 14:15 Dose: Not Given Insulin Aspart (Novolog) 0 unit SC ACHS [facility] Last Admin: 10/30/18 11:38 Dose: Not Given Insulin Aspart (Novolog) 14 unit SC AC [facility] Last Admin: 10/30/18 11:38 Dose: Not Given Insulin Glargine (Lantus) 30 unit SC HS [facility] Last Admin: 10/29/18 21:45 Dose: Not Given Levetiracetam (Keppra) 500 mg PO DIAL [facility] Losartan Potassium (Cozaar) 50 mg PO DAILY [facility] Last Admin: 10/30/18 09:40 Dose: Not Given Montelukast Sodium (Singulair) 10 mg PO DAILY [facility] Last Admin: 10/30/18 09:41 Dose: Not Given Quetiapine Fumarate (Seroquel) 25 mg PO DAILY [facility] Last Admin: 10/28/18 10:44 Dose: 25 mg Rosuvastatin Calcium (Crestor) 5 mg PO HS [facility] Last Admin: 10/29/18 21:42 Dose: 5 mg Vitamin B Complex/Vit C/Folic Acid (Nephro-Marina) 1 tab PO 0800 [facility] Last Admin: 10/30/18 08:19 Dose: Not Given - Labs Labs: 10/30/18 08:00 10/30/18 08:00 PT 9.8 SECONDS (9.7-12.2) 10/30/18 08:00 INR 0.9 10/30/18 08:00 APTT 32 SECONDS (21-34) D 10/30/18 08:00 Assessment and Plan - Assessment and Plan (Free Text) Assessment: ESRD ON HD M W F .. GETTING HD TODAY CLOTTED AVF .. S/P PERM CATH UNCONTROLED DM MMP P : C/O CURRENT CARE C/O PRESENT MANAGEMENT C/O SAME MEDS
[2018-10-30] MEDS: (Lantus) Insulin Glargine, Recombinant SC SCH (21:36)
[2018-10-30] MEDS ORDERED: (Lantus) Insulin Glargine, Recombinant SC SCH (22:00)
--- NOTE | 2018-10-30 22:11 | CP.PCM.PN ---
Subjective - Date & Time of Evaluation Date of Evaluation: 10/30/18 Time of Evaluation: 19:05 - Subjective Subjective: patient resting comfortably following permacath insertion. Mrs. Prater had scheduled dialysis session today. Patient was evaluated today by nephrology. Continue supportive measures Objective - Vital Signs/Intake and Output Vital Signs (last 24 hours): Temp Pulse Resp BP Pulse Ox 97.4 F L 94 H 16 128/79 97 10/30/18 20:45 10/30/18 20:45 10/30/18 20:45 10/30/18 20:45 10/30/18 20:45 Intake and Output: 10/30/18 10/31/18 18:59 06:59 Intake Total 600 Balance 600 - Medications Medications: Current Medications Albuterol Sulfate (Albuterol 0.083% Inhal Luisa (2.5 Mg/3 Ml) Ud) 2.5 mg INH RQ6 PRN PRN Reason: Shortness of Breath Aspirin (Aspirin Chewable) 81 mg PO DAILY [facility] Last Admin: 10/30/18 09:40 Dose: Not Given Clopidogrel Bisulfate (Plavix) 75 mg PO DAILY [facility] Last Admin: 10/30/18 09:41 Dose: Not Given Dextrose (Dextrose 50% Inj) 0 ml IV STAT PRN; Protocol PRN Reason: Hypoglycemia Protocol Dextrose (Glutose 15) 0 gm PO ONCE PRN; Protocol PRN Reason: Hypoglycemia Protocol Enalapril Maleate (Vasotec) 10 mg PO DAILY [facility] Last Admin: 10/30/18 09:41 Dose: Not Given Famotidine (Pepcid) 20 mg IVP DAILY [facility] Last Admin: 10/30/18 10:19 Dose: 20 mg Glucagon (Glucagen Diagnostic Kit) 0 mg IM STAT PRN; Protocol PRN Reason: Hypoglycemia Protocol Hydralazine HCl (Apresoline) 25 mg PO TID [facility] Last Admin: 10/30/18 21:34 Dose: 25 mg Insulin Aspart (Novolog) 0 unit SC ACHS [facility] Last Admin: 10/30/18 21:38 Dose: 3 u Insulin Aspart (Novolog) 18 unit SC AC [facility] Insulin Glargine (Lantus) 36 unit SC HS [facility] Levetiracetam (Keppra) 500 mg PO DIAL [facility] Losartan Potassium (Cozaar) 50 mg PO DAILY [facility] Last Admin: 10/30/18 09:40 Dose: Not Given Montelukast Sodium (Singulair) 10 mg PO DAILY [facility] Last Admin: 10/30/18 09:41 Dose: Not Given Quetiapine Fumarate (Seroquel) 25 mg PO DAILY [facility] Last Admin: 10/28/18 10:44 Dose: 25 mg Rosuvastatin Calcium (Crestor) 5 mg PO HS [facility] Last Admin: 10/30/18 21:35 Dose: 5 mg Vitamin B Complex/Vit C/Folic Acid (Nephro-Marina) 1 tab PO 0800 [facility] Last Admin: 10/30/18 08:19 Dose: Not Given - Labs Labs: 10/30/18 08:00 10/30/18 08:00 PT 9.8 SECONDS (9.7-12.2) 10/30/18 08:00 INR 0.9 10/30/18 08:00 APTT 32 SECONDS (21-34) D 10/30/18 08:00 - Constitutional Appears: Chronically Ill - Head Exam Head Exam: NORMOCEPHALIC - Eye Exam Eye Exam: Normal appearance Pupil Exam: NORMAL ACCOMODATION - ENT Exam ENT Exam: Normal Exam - Neck Exam Neck Exam: Normal Inspection - Respiratory Exam Respiratory Exam: absent: Decreased Breath Sounds - Cardiovascular Exam Cardiovascular Exam: REGULAR RHYTHM - GI/Abdominal Exam GI & Abdominal Exam: Normal Bowel Sounds - Rectal Exam Rectal Exam: Deferred - Exam External exam: absent: NORMAL EXTERNAL EXAM - Extremities Exam Extremities Exam: absent: Tenderness - Back Exam Back Exam: absent: NORMAL INSPECTION - Neurological Exam Neurological Exam: absent: Awake - Psychiatric Exam Psychiatric exam: Depressed - Skin Skin Exam: Dry Assessment and Plan (1) ESRD (end stage renal disease) Status: Acute (2) Lactic acidosis Status: Acute (3) Altered mental status Status: Acute (4) Arthralgia Status: Acute (5) Uncontrolled diabetes mellitus Status: Acute
--- NOTE | 2018-10-31 01:00 | PN ---
DATE: 10/30/2018 ENDO FOLLOWUP NOTE LOCATION: Room 358. SUBJECTIVE: This is an 82-year-old female with recent uncontrolled type 2 insulin-requiring diabetes, now being followed closely for metabolic management. Her glycemic levels are fluctuating as noted overnight with glucose values ranging from 202 to 212 and 316 mg/dL. Her chemistry showed BUN of 63. Sodium 133, potassium 4.3, chloride 102, CO2 of 19, glucose 345, and creatinine 4.7. ASSESSMENT: This is an 82-year-old female with recent uncontrolled type 2 insulin-requiring diabetes, now being followed closely for metabolic management. She also has diabetic microvascular complications of retinopathy, polyneuropathy, and nephropathy with end-stage renal disease and dialysis dependence. She also has diabetic microvascular complications of coronary artery disease and peripheral arterial disease and vasculopathy. PLAN OF MANAGEMENT: We will modify once again her basal and bolus insulin regimen and increase basal insulin with Lantus to be given as 36 units subcu at bedtime daily to start tonight as ordered. We will also continue the low dose correction scale using NovoLog insulin as given. We will modify also her prandial insulin with Novolog to be given as 18 units subcu t.i.d. before meals to start at breakfast time tomorrow morning as ordered. We will obtain serial chemistries and supplement accordingly as needed. We will follow. Bella Gold MD
--- NOTE | 2018-10-31 03:10 | OP ---
PROCEDURE DATE: 10/30/2018 PREOPERATIVE DIAGNOSIS: Clotted right forearm fistula. POSTOPERATIVE DIAGNOSIS: Clotted right forearm fistula. PROCEDURE CARRIED OUT: Placement of PermCath to left jugular vein. SURGEON: Damion Mccormick Jr., MD ASSISTANTS: None. ANESTHESIOLOGIST: Serena Castillo CRNA INDICATION: The patient is an 83-year-old woman with dementia, presented with carotid access in her right arm. Additionally, we attempted to place the catheter on the right side. We have entered the jugular vein. We were unable to advance centrally because of previously placed stents crossing across this area. Because of this, we advanced on the right side. We went from left side and we were able to place the catheter successfully via the left jugular vein. DESCRIPTION OF PROCEDURE: The patient was given local anesthesia, where right side was punctured. The Guidewire was seen to be coiling about the previously placed stent. We then abandoned that and went to the other side, placed the catheter which was somewhat difficult. We had to place the catheter. We had to take a venogram. We had to use catheter to get this into inferior vena cava, which we eventually did and then placed the catheter over this. It was secured to the skin with silk sutures and tunneled under the skin. The operation carried out is PermCath to left jugular vein with C-arm fluoroscopy, ultrasound-guided puncture, and micropuncture technique. Ultrasound images of the neck showed that the vein was 14 mm in diameter with normal compressibility and no intraluminal thrombosis on the left side. Damion Mccormick Jr., MD
[2018-10-31] MEDS: (Novolog) Insulin Aspart, Recombinant 100 u/ml 10 ml vial SC SCH ×7 (07:56→21:52)
[2018-10-31] MEDS: Multivitamin Vitamin B Complex (Nephro-Vite) Tab PO SCH (08:01)
[2018-10-31 08:46] LABS: BASO % 0.4 % (0.0-2.0); EOS # 0.2 K/uL (0.0-0.7); EOS % 2.8 % (0.0-4.0); HEMOGLOBIN 11.8 g/dL (11.0-16.0); LYMPH # 1.1 K/uL (1.0-4.3); LYMPH % 16.7 % (20.0-40.0); MEAN CELL VOLUME 84.8 fL (81.0-99.0); MEAN CORPUSCULAR HEMOGLOBIN 27.1 pg (27.0-31.0); MEAN PLATELET VOLUME 10.5 fL (7.2-11.7); NEUT # 4.5 K/uL (1.8-7.0); NEUT % 66.1 % (50.0-75.0); RBC 4.35 Mil/uL (3.80-5.20); RED CELL DISTRIBUTION WIDTH 17.6 % (11.5-14.5); WHITE BLOOD COUNT 6.8 K/uL (4.8-10.8)
[2018-10-31 09:02] LABS: ALB/GLOB RATIO 1.4 (1.0-2.1); ALBUMIN 3.6 g/dL (3.5-5.0); CALCIUM 8.6 mg/dl (8.6-10.4)
--- NOTE | 2018-10-31 09:48 | CP.PCM.PN ---
Subjective - Date & Time of Evaluation Date of Evaluation: 10/31/18 Time of Evaluation: 07:00 - Subjective Subjective: Vascular Surgery. Pt seen and examined. Mild pain at insertion site, Had some bleed through dressings. No other complaints. Had HD without issue. Objective - Vital Signs/Intake and Output Vital Signs (last 24 hours): Temp Pulse Resp BP Pulse Ox 98.1 F 90 20 126/78 98 10/31/18 07:53 10/31/18 07:53 10/31/18 07:53 10/31/18 09:38 10/31/18 07:53 Intake and Output: 10/31/18 10/31/18 06:59 18:59 Intake Total 120 Balance 120 - Medications Medications: Current Medications Albuterol Sulfate (Albuterol 0.083% Inhal Luisa (2.5 Mg/3 Ml) Ud) 2.5 mg INH RQ6 PRN PRN Reason: Shortness of Breath Aspirin (Aspirin Chewable) 81 mg PO DAILY [facility] Last Admin: 10/31/18 09:38 Dose: 81 mg Clopidogrel Bisulfate (Plavix) 75 mg PO DAILY [facility] Last Admin: 10/31/18 09:38 Dose: 75 mg Dextrose (Dextrose 50% Inj) 0 ml IV STAT PRN; Protocol PRN Reason: Hypoglycemia Protocol Dextrose (Glutose 15) 0 gm PO ONCE PRN; Protocol PRN Reason: Hypoglycemia Protocol Enalapril Maleate (Vasotec) 10 mg PO DAILY [facility] Last Admin: 10/31/18 09:38 Dose: 10 mg Famotidine (Pepcid) 20 mg IVP DAILY [facility] Last Admin: 10/31/18 09:38 Dose: 20 mg Glucagon (Glucagen Diagnostic Kit) 0 mg IM STAT PRN; Protocol PRN Reason: Hypoglycemia Protocol Hydralazine HCl (Apresoline) 25 mg PO TID [facility] Last Admin: 10/31/18 09:38 Dose: 25 mg Insulin Aspart (Novolog) 0 unit SC ACHS [facility] Last Admin: 10/31/18 07:56 Dose: 3 units Insulin Aspart (Novolog) 18 unit SC AC [facility] Last Admin: 10/31/18 07:58 Dose: 18 units Insulin Glargine (Lantus) 36 unit SC HS [facility] Last Admin: 10/30/18 22:30 Dose: Not Given Levetiracetam (Keppra) 500 mg PO DIAL [facility] Losartan Potassium (Cozaar) 50 mg PO DAILY [facility] Last Admin: 10/31/18 09:39 Dose: 50 mg Montelukast Sodium (Singulair) 10 mg PO DAILY [facility] Last Admin: 10/31/18 09:38 Dose: 10 mg Quetiapine Fumarate (Seroquel) 25 mg PO DAILY [facility] Last Admin: 10/28/18 10:44 Dose: 25 mg Rosuvastatin Calcium (Crestor) 5 mg PO HS [facility] Last Admin: 10/30/18 21:35 Dose: 5 mg Vitamin B Complex/Vit C/Folic Acid (Nephro-Marina) 1 tab PO 0800 [facility] Last Admin: 10/31/18 08:01 Dose: 1 tab - Labs Labs: 10/31/18 08:39 10/31/18 08:39 PT 9.8 SECONDS (9.7-12.2) 10/30/18 08:00 INR 0.9 10/30/18 08:00 APTT 32 SECONDS (21-34) D 10/30/18 08:00 - Constitutional Appears: Non-toxic, No Acute Distress - Head Exam Head Exam: ATRAUMATIC, NORMOCEPHALIC - Eye Exam Eye Exam: EOMI. absent: Scleral icterus - Respiratory Exam Respiratory Exam: NORMAL BREATHING PATTERN. absent: Respiratory Distress Additional comments: Reinforced dressing with serosanguinous staining - GI/Abdominal Exam GI & Abdominal Exam: Soft. absent: Distended, Tenderness - Neurological Exam Neurological Exam: Alert, Awake, Oriented x3 - Skin Skin Exam: Dry, Warm Assessment and Plan - Assessment and Plan (Free Text) Assessment: 83F POD#1 s/p L IJ permacath insertion. Plan: Applied New dressing and Held pressure to decrease oozing. Will discuss further surgical options for AVF in the future. D/W Dr. Anny Mccord PGY4
--- NOTE | 2018-10-31 14:48 | CP.PCM.PN ---
Subjective - Date & Time of Evaluation Date of Evaluation: 10/31/18 Time of Evaluation: 14:47 - Subjective Subjective: Neuro Follow-Up Note: Mrs. Prater was evaluated this afternoon in HD. She admits to feeling generally well and offers no complaints today. She is POD#1 s/p L IJ permacath insertion. She denies h/a, dizziness, visual changes, chest pain, sob, abd pain, n/v/d. Objective - Vital Signs/Intake and Output Vital Signs (last 24 hours): Temp Pulse Resp BP Pulse Ox 98.1 F 90 20 126/78 98 10/31/18 07:53 10/31/18 07:53 10/31/18 07:53 10/31/18 09:38 10/31/18 07:53 Intake and Output: 10/31/18 10/31/18 06:59 18:59 Intake Total 120 300 Balance 120 300 - Medications Medications: Current Medications Albuterol Sulfate (Albuterol 0.083% Inhal Luisa (2.5 Mg/3 Ml) Ud) 2.5 mg INH RQ6 PRN PRN Reason: Shortness of Breath Aspirin (Aspirin Chewable) 81 mg PO DAILY [facility] Last Admin: 10/31/18 09:38 Dose: 81 mg Clopidogrel Bisulfate (Plavix) 75 mg PO DAILY [facility] Last Admin: 10/31/18 09:38 Dose: 75 mg Dextrose (Dextrose 50% Inj) 0 ml IV STAT PRN; Protocol PRN Reason: Hypoglycemia Protocol Dextrose (Glutose 15) 0 gm PO ONCE PRN; Protocol PRN Reason: Hypoglycemia Protocol Enalapril Maleate (Vasotec) 10 mg PO DAILY [facility] Last Admin: 10/31/18 09:38 Dose: 10 mg Famotidine (Pepcid) 20 mg IVP DAILY [facility] Last Admin: 10/31/18 09:38 Dose: 20 mg Glucagon (Glucagen Diagnostic Kit) 0 mg IM STAT PRN; Protocol PRN Reason: Hypoglycemia Protocol Hydralazine HCl (Apresoline) 25 mg PO TID [facility] Last Admin: 10/31/18 13:26 Dose: 25 mg Insulin Aspart (Novolog) 0 unit SC ACHS [facility] Last Admin: 10/31/18 11:58 Dose: Not Given Insulin Aspart (Novolog) 18 unit SC AC [facility] Last Admin: 10/31/18 12:00 Dose: Not Given Insulin Glargine (Lantus) 36 unit SC HS [facility] Last Admin: 10/30/18 22:30 Dose: Not Given Levetiracetam (Keppra) 500 mg PO DIAL [facility] Losartan Potassium (Cozaar) 50 mg PO DAILY [facility] Last Admin: 10/31/18 09:39 Dose: 50 mg Montelukast Sodium (Singulair) 10 mg PO DAILY [facility] Last Admin: 10/31/18 09:38 Dose: 10 mg Quetiapine Fumarate (Seroquel) 25 mg PO DAILY [facility] Last Admin: 10/28/18 10:44 Dose: 25 mg Rosuvastatin Calcium (Crestor) 5 mg PO HS [facility] Last Admin: 10/30/18 21:35 Dose: 5 mg Vitamin B Complex/Vit C/Folic Acid (Nephro-Marina) 1 tab PO 0800 [facility] Last Admin: 10/31/18 08:01 Dose: 1 tab - Labs Labs: 10/31/18 08:39 10/31/18 08:39 PT 9.8 SECONDS (9.7-12.2) 10/30/18 08:00 INR 0.9 10/30/18 08:00 APTT 32 SECONDS (21-34) D 10/30/18 08:00 - Constitutional Appears: Well, Non-toxic, No Acute Distress - Head Exam Head Exam: ATRAUMATIC, NORMAL INSPECTION, NORMOCEPHALIC - Eye Exam Eye Exam: EOMI, Normal appearance, PERRL Pupil Exam: NORMAL ACCOMODATION, PERRL - ENT Exam ENT Exam: Mucous Membranes Moist, Normal Exam - Neck Exam Neck Exam: Full ROM, Normal Inspection - Respiratory Exam Respiratory Exam: NORMAL BREATHING PATTERN - GI/Abdominal Exam GI & Abdominal Exam: Soft - Extremities Exam Extremities Exam: Full ROM. absent: Calf Tenderness, Pedal Edema - Neurological Exam Neurological Exam: Alert, Awake, CN II-XII Intact, Reflexes Normal Neuro motor strength exam: Left Upper Extremity: 5, Right Upper Extremity: 5, Left Lower Extremity: 5, Right Lower Extremity: 5 Additional comments: Speech clear, fluid Awake, alert; follows all commands Strength to BUE and BLE equal No sensory deficits No jerky movements to right arm noted today. - Psychiatric Exam Psychiatric exam: Normal Affect, Normal Mood - Skin Skin Exam: Normal Color Assessment and Plan (1) Seizure Assessment & Plan: Imaging reviewed: -EEG (10/28/18): This is an abnormal EEG record that demonstrate the presence of moderate non specific diffuse disturbance of cortical activity, this is keeping with a diffuse hammer matter dysfunction, these findings are not specific. No seizures. Patient is not in status epilepticus. -CT Head (10/27/18): No acute intracranial abnormality. Additional findings as above. -Continue PT as tolerated -Continue current treatment for other medical issues including nonfunctioning HD catheter and blood sugar control. -Continue Keppra 500 mg PO QHD (MWF) while in hospital and upon discharge. She has been tolerating it and the jerky movements to her right forearm have resolved. -Please have Erwin Prater f/u with Dr. Rajput in the office within 1 month. Case discussed with Dr. Rajput Status: Acute
--- NOTE | 2018-10-31 17:59 | RAD ---
Date of service: 10/30/2018 PROCEDURE: Fluoroscopy up to 1 hr. HISTORY: RENAL FAILURE COMPARISON: None TECHNIQUE: Standard protocol for this study/examination. FINDINGS: Total fluoroscopic time (continuous mode) utilized during the procedure 179.9 seconds. Total exam DLP: 41.72 (mGy). IMPRESSION: Two images submitted from PermCath placement.
--- NOTE | 2018-10-31 19:10 | CP.PCM.PN ---
Subjective - Date & Time of Evaluation Date of Evaluation: 10/31/18 Time of Evaluation: 15:00 - Subjective Subjective: SEEN ON RENAL F/U SEEN IN THE HD UNIT . GETTING HER HD VIA TUNNELLED HD CATH CATH IS WORKING WELL .. BUT STILL LITTLE OOZING PT FEELS MUCH BETTER DAUGHTER ON THE BED SIDE .. CASE D/W HER D/W DR HALEY ALSO .. THE PLAN IS TO FIX L ARM AVF Objective - Vital Signs/Intake and Output Vital Signs (last 24 hours): Temp Pulse Resp BP Pulse Ox 96 F L 85 16 83/59 L 99 10/31/18 16:27 10/31/18 16:27 10/31/18 16:27 10/31/18 17:10 10/31/18 14:10 Intake and Output: 10/31/18 11/01/18 18:59 06:59 Intake Total 300 Balance 300 - Medications Medications: Current Medications Albuterol Sulfate (Albuterol 0.083% Inhal Luisa (2.5 Mg/3 Ml) Ud) 2.5 mg INH RQ6 PRN PRN Reason: Shortness of Breath Aspirin (Aspirin Chewable) 81 mg PO DAILY [facility] Last Admin: 10/31/18 09:38 Dose: 81 mg Clopidogrel Bisulfate (Plavix) 75 mg PO DAILY [facility] Last Admin: 10/31/18 09:38 Dose: 75 mg Dextrose (Dextrose 50% Inj) 0 ml IV STAT PRN; Protocol PRN Reason: Hypoglycemia Protocol Dextrose (Glutose 15) 0 gm PO ONCE PRN; Protocol PRN Reason: Hypoglycemia Protocol Enalapril Maleate (Vasotec) 10 mg PO DAILY [facility] Last Admin: 10/31/18 09:38 Dose: 10 mg Famotidine (Pepcid) 20 mg IVP DAILY [facility] Last Admin: 10/31/18 09:38 Dose: 20 mg Glucagon (Glucagen Diagnostic Kit) 0 mg IM STAT PRN; Protocol PRN Reason: Hypoglycemia Protocol Hydralazine HCl (Apresoline) 25 mg PO TID [facility] Last Admin: 10/31/18 17:37 Dose: 25 mg Insulin Aspart (Novolog) 0 unit SC ACHS [facility] Last Admin: 10/31/18 16:30 Dose: Not Given Insulin Aspart (Novolog) 18 unit SC AC [facility] Last Admin: 10/31/18 16:30 Dose: 18 units Insulin Glargine (Lantus) 40 unit SC HS [facility] Levetiracetam (Keppra) 500 mg PO DIAL [facility] Losartan Potassium (Cozaar) 50 mg PO DAILY [facility] Last Admin: 10/31/18 09:39 Dose: 50 mg Montelukast Sodium (Singulair) 10 mg PO DAILY [facility] Last Admin: 10/31/18 09:38 Dose: 10 mg Quetiapine Fumarate (Seroquel) 25 mg PO DAILY [facility] Last Admin: 10/28/18 10:44 Dose: 25 mg Rosuvastatin Calcium (Crestor) 5 mg PO HS [facility] Last Admin: 10/30/18 21:35 Dose: 5 mg Vitamin B Complex/Vit C/Folic Acid (Nephro-Marina) 1 tab PO 0800 [facility] Last Admin: 10/31/18 08:01 Dose: 1 tab - Labs Labs: 10/31/18 08:39 10/31/18 08:39 PT 9.8 SECONDS (9.7-12.2) 10/30/18 08:00 INR 0.9 10/30/18 08:00 APTT 32 SECONDS (21-34) D 10/30/18 08:00 Assessment and Plan - Assessment and Plan (Free Text) Assessment: ESRD ON HD M W F .. RECIEVING HD NOW ANEMIA OF CKD .. H/H STABLE ELECTROLYTES ABN .. OK ON HD CLOTTED HD AVF .. S/O L TUNNELLED HD CATH MMP P : C/O CURRENT CARE C/O PRESENT MANAGEMENT FOR HD AVF REPAIR BY DR HALEY
--- NOTE | 2018-10-31 19:34 | PN ---
DATE: 10/31/2018 ENDOCRINOLOGY FOLLOWUP NOTE LOCATION: Room 357. SUBJECTIVE: This is an 82-year-old female with recent uncontrolled type 2 insulin-requiring diabetes, now being followed closely for metabolic management. Her glycemic levels were fluctuating as noted today and the glucose levels have ranged from 316 to 343 mg/dL. The latest glucose is 161 mg/dL. Her chemistry showed a BUN of 43, sodium 136, potassium 4.3, chloride 99, CO2 of 27, glucose 398, and creatinine 3.6. PLAN: So at this time, we will continue the same NovoLog given as 16 units t.i.d. before meals as ordered. We will continue the low-dose correction scale using NovoLog insulin as given with hypoglycemia. We will modify the basal insulin and increase the Lantus to 40 units subcu at bedtime daily to start tonight. We will obtain serial chemistries and supplement accordingly as needed. We will follow. Bella Gold MD
[2018-10-31] MEDS ORDERED: (Lantus) Insulin Glargine, Recombinant SC SCH (22:00)
--- NOTE | 2018-10-31 22:16 | CP.PCM.PN ---
Subjective - Date & Time of Evaluation Date of Evaluation: 10/31/18 Time of Evaluation: 13:20 - Subjective Subjective: patient is resting comfortably while undergoing dialysis. Patient had some bleeding earlie at the site of permacath insertion. residential solar consultant was asked to come and evaluate the patient. Patient denies any chest pain or head ache. Patient was seen by Dr. Gold. Patient's insulin dose was adjusted. Continue supportive measures. Objective - Vital Signs/Intake and Output Vital Signs (last 24 hours): Temp Pulse Resp BP Pulse Ox 96 F L 85 16 83/59 L 99 10/31/18 16:27 10/31/18 16:27 10/31/18 16:27 10/31/18 17:10 10/31/18 14:10 Intake and Output: 10/31/18 11/01/18 18:59 06:59 Intake Total 300 Balance 300 - Medications Medications: Current Medications Albuterol Sulfate (Albuterol 0.083% Inhal Luisa (2.5 Mg/3 Ml) Ud) 2.5 mg INH RQ6 PRN PRN Reason: Shortness of Breath Aspirin (Aspirin Chewable) 81 mg PO DAILY [facility] Last Admin: 10/31/18 09:38 Dose: 81 mg Clopidogrel Bisulfate (Plavix) 75 mg PO DAILY [facility] Last Admin: 10/31/18 09:38 Dose: 75 mg Dextrose (Dextrose 50% Inj) 0 ml IV STAT PRN; Protocol PRN Reason: Hypoglycemia Protocol Dextrose (Glutose 15) 0 gm PO ONCE PRN; Protocol PRN Reason: Hypoglycemia Protocol Enalapril Maleate (Vasotec) 10 mg PO DAILY [facility] Last Admin: 10/31/18 09:38 Dose: 10 mg Famotidine (Pepcid) 20 mg IVP DAILY [facility] Last Admin: 10/31/18 09:38 Dose: 20 mg Glucagon (Glucagen Diagnostic Kit) 0 mg IM STAT PRN; Protocol PRN Reason: Hypoglycemia Protocol Hydralazine HCl (Apresoline) 25 mg PO TID [facility] Last Admin: 10/31/18 17:37 Dose: 25 mg Insulin Aspart (Novolog) 0 unit SC ACHS [facility] Last Admin: 10/31/18 21:52 Dose: 3 units Insulin Aspart (Novolog) 18 unit SC AC [facility] Last Admin: 10/31/18 16:30 Dose: 18 units Insulin Glargine (Lantus) 40 unit SC HS [facility] Last Admin: 10/31/18 21:51 Dose: 40 units Levetiracetam (Keppra) 500 mg PO DIAL [facility] Losartan Potassium (Cozaar) 50 mg PO DAILY [facility] Last Admin: 10/31/18 09:39 Dose: 50 mg Montelukast Sodium (Singulair) 10 mg PO DAILY [facility] Last Admin: 10/31/18 09:38 Dose: 10 mg Quetiapine Fumarate (Seroquel) 25 mg PO DAILY [facility] Last Admin: 10/28/18 10:44 Dose: 25 mg Rosuvastatin Calcium (Crestor) 5 mg PO HS [facility] Last Admin: 10/31/18 21:50 Dose: 5 mg Vitamin B Complex/Vit C/Folic Acid (Nephro-Marina) 1 tab PO 0800 [facility] Last Admin: 10/31/18 08:01 Dose: 1 tab - Labs Labs: 10/31/18 08:39 10/31/18 08:39 PT 9.8 SECONDS (9.7-12.2) 10/30/18 08:00 INR 0.9 10/30/18 08:00 APTT 32 SECONDS (21-34) D 10/30/18 08:00 - Constitutional Appears: Chronically Ill - Head Exam Head Exam: NORMOCEPHALIC - Eye Exam Eye Exam: Normal appearance Pupil Exam: NORMAL ACCOMODATION - ENT Exam ENT Exam: Normal Exam - Neck Exam Neck Exam: Normal Inspection - Respiratory Exam Respiratory Exam: Decreased Breath Sounds - Cardiovascular Exam Cardiovascular Exam: REGULAR RHYTHM - GI/Abdominal Exam GI & Abdominal Exam: Normal Bowel Sounds - Rectal Exam Rectal Exam: Deferred - Exam External exam: NORMAL EXTERNAL EXAM - Extremities Exam Extremities Exam: Tenderness - Back Exam Back Exam: NORMAL INSPECTION - Neurological Exam Neurological Exam: Awake - Psychiatric Exam Psychiatric exam: Depressed - Skin Skin Exam: Dry Assessment and Plan (1) ESRD (end stage renal disease) Status: Acute (2) Lactic acidosis Status: Acute (3) Altered mental status Status: Acute (4) Arthralgia Status: Acute (5) Uncontrolled diabetes mellitus Status: Acute
[2018-11-01] MEDS: (Novolog) Insulin Aspart, Recombinant 100 u/ml 10 ml vial SC SCH ×7 (08:46→21:42)
[2018-11-01] MEDS: Multivitamin Vitamin B Complex (Nephro-Vite) Tab PO SCH (09:08)
--- NOTE | 2018-11-01 13:39 | PN ---
DATE: 11/01/2018 LOCATION: Room 357. SUBJECTIVE: The patient is an 82-year-old female with recent uncontrolled type 2 insulin-requiring diabetes, now being followed closely for metabolic management. Her glycemic levels are fluctuating as noted and the glucose values have ranged from 288 to 327 mg/dL. LABORATORY DATA: Her chemistries showed a BUN of 43, sodium 136, potassium 4.3, chloride 99, CO2 of 27, glucose 398, and creatinine 3.6. ASSESSMENT AND PLAN: So, at this time, we will modify once again her basal and bolus insulin regimen and increase NovoLog to 22 units t.i.d. before meals to start today as ordered. We will also increase the basal insulin with Lantus to be given as 44 units subcutaneously at bedtime daily to start tonight. We will continue the low-dose correction scale using NovoLog insulin as given. We will follow and advise accordingly. Bella Gold MD
--- NOTE | 2018-11-01 19:49 | CP.PCM.PN ---
Subjective - Date & Time of Evaluation Date of Evaluation: 11/01/18 Time of Evaluation: 16:25 - Subjective Subjective: patient somewhat lethargic today. She is complaining of pain over the Port-A-Cath site. Accu-Chek blood sugar value 325.coverage as per Dr. Gold's orders. we'll repeat all labs in a.m. continue supportive measures Objective - Vital Signs/Intake and Output Vital Signs (last 24 hours): Temp Pulse Resp BP Pulse Ox 97.8 F 75 20 92/61 L 100 11/01/18 15:00 11/01/18 15:00 11/01/18 15:00 11/01/18 15:00 11/01/18 15:00 Intake and Output: 11/01/18 11/02/18 18:59 06:59 Intake Total 360 Balance 360 - Medications Medications: Current Medications Acetaminophen (Tylenol 325mg Tab) 650 mg PO Q6 PRN PRN Reason: Pain, moderate (4-7) Last Admin: 11/01/18 12:38 Dose: 650 mg Aspirin (Aspirin Chewable) 81 mg PO DAILY [facility] Last Admin: 11/01/18 09:42 Dose: 81 mg Clopidogrel Bisulfate (Plavix) 75 mg PO DAILY [facility] Last Admin: 10/31/18 09:38 Dose: 75 mg Dextrose (Dextrose 50% Inj) 0 ml IV STAT PRN; Protocol PRN Reason: Hypoglycemia Protocol Last Admin: 11/01/18 16:43 Dose: 50 ml Dextrose (Glutose 15) 0 gm PO ONCE PRN; Protocol PRN Reason: Hypoglycemia Protocol Enalapril Maleate (Vasotec) 10 mg PO DAILY [facility] Last Admin: 11/01/18 09:42 Dose: 10 mg Famotidine (Pepcid) 20 mg IVP DAILY [facility] Last Admin: 11/01/18 10:44 Dose: 20 mg Glucagon (Glucagen Diagnostic Kit) 0 mg IM STAT PRN; Protocol PRN Reason: Hypoglycemia Protocol Hydralazine HCl (Apresoline) 25 mg PO TID [facility] Last Admin: 11/01/18 13:27 Dose: 25 mg Insulin Aspart (Novolog) 0 unit SC ACHS [facility] Last Admin: 11/01/18 17:01 Dose: Not Given Insulin Aspart (Novolog) 22 unit SC ACBD [facility] Insulin Glargine (Lantus) 44 unit SC HS [facility] Levetiracetam (Keppra) 500 mg PO DIAL [facility] Losartan Potassium (Cozaar) 50 mg PO DAILY [facility] Last Admin: 11/01/18 09:42 Dose: 50 mg Montelukast Sodium (Singulair) 10 mg PO DAILY [facility] Last Admin: 11/01/18 09:42 Dose: 10 mg Quetiapine Fumarate (Seroquel) 25 mg PO DAILY [facility] Last Admin: 10/28/18 10:44 Dose: 25 mg Rosuvastatin Calcium (Crestor) 5 mg PO HS [facility] Last Admin: 10/31/18 21:50 Dose: 5 mg Vitamin B Complex/Vit C/Folic Acid (Nephro-Marina) 1 tab PO 0800 [facility] Last Admin: 11/01/18 09:08 Dose: 1 tab - Labs Labs: 10/31/18 08:39 10/31/18 08:39 PT 9.8 SECONDS (9.7-12.2) 10/30/18 08:00 INR 0.9 10/30/18 08:00 APTT 32 SECONDS (21-34) D 10/30/18 08:00 - Constitutional Appears: Chronically Ill - Head Exam Head Exam: NORMOCEPHALIC - Eye Exam Eye Exam: Normal appearance Pupil Exam: NORMAL ACCOMODATION - ENT Exam ENT Exam: Normal Exam - Neck Exam Neck Exam: Normal Inspection - Respiratory Exam Respiratory Exam: Decreased Breath Sounds - Cardiovascular Exam Cardiovascular Exam: REGULAR RHYTHM - GI/Abdominal Exam GI & Abdominal Exam: Normal Bowel Sounds - Rectal Exam Rectal Exam: Deferred - Exam External exam: NORMAL EXTERNAL EXAM - Back Exam Back Exam: NORMAL INSPECTION - Neurological Exam Neurological Exam: Awake - Psychiatric Exam Psychiatric exam: Depressed - Skin Skin Exam: Dry Assessment and Plan (1) ESRD (end stage renal disease) Status: Acute (2) Lactic acidosis Status: Acute (3) Altered mental status Status: Acute (4) Arthralgia Status: Acute (5) Uncontrolled diabetes mellitus Status: Acute
--- NOTE | 2018-11-01 21:44 | CP.PCM.PN ---
Subjective - Date & Time of Evaluation Date of Evaluation: 11/01/18 Time of Evaluation: 16:00 - Subjective Subjective: Seen on renal f/u Feels improved .. local pain on tunnelled cath On HD M W F Objective - Vital Signs/Intake and Output Vital Signs (last 24 hours): Temp Pulse Resp BP Pulse Ox 97.8 F 75 20 92/61 L 100 11/01/18 15:00 11/01/18 15:00 11/01/18 15:00 11/01/18 15:00 11/01/18 15:00 Intake and Output: 11/01/18 11/02/18 18:59 06:59 Intake Total 360 Balance 360 - Medications Medications: Current Medications Acetaminophen (Tylenol 325mg Tab) 650 mg PO Q6 PRN PRN Reason: Pain, moderate (4-7) Last Admin: 11/01/18 12:38 Dose: 650 mg Aspirin (Aspirin Chewable) 81 mg PO DAILY [facility] Last Admin: 11/01/18 09:42 Dose: 81 mg Clopidogrel Bisulfate (Plavix) 75 mg PO DAILY [facility] Last Admin: 10/31/18 09:38 Dose: 75 mg Dextrose (Dextrose 50% Inj) 0 ml IV STAT PRN; Protocol PRN Reason: Hypoglycemia Protocol Last Admin: 11/01/18 16:43 Dose: 50 ml Dextrose (Glutose 15) 0 gm PO ONCE PRN; Protocol PRN Reason: Hypoglycemia Protocol Enalapril Maleate (Vasotec) 10 mg PO DAILY [facility] Last Admin: 11/01/18 09:42 Dose: 10 mg Famotidine (Pepcid) 20 mg IVP DAILY [facility] Last Admin: 11/01/18 10:44 Dose: 20 mg Glucagon (Glucagen Diagnostic Kit) 0 mg IM STAT PRN; Protocol PRN Reason: Hypoglycemia Protocol Hydralazine HCl (Apresoline) 25 mg PO TID [facility] Last Admin: 11/01/18 13:27 Dose: 25 mg Insulin Aspart (Novolog) 0 unit SC ACHS [facility] Last Admin: 11/01/18 17:01 Dose: Not Given Insulin Aspart (Novolog) 22 unit SC ACBD [facility] Insulin Glargine (Lantus) 44 unit SC HS [facility] Levetiracetam (Keppra) 500 mg PO DIAL [facility] Losartan Potassium (Cozaar) 50 mg PO DAILY [facility] Last Admin: 11/01/18 09:42 Dose: 50 mg Montelukast Sodium (Singulair) 10 mg PO DAILY [facility] Last Admin: 11/01/18 09:42 Dose: 10 mg Quetiapine Fumarate (Seroquel) 25 mg PO DAILY [facility] Last Admin: 10/28/18 10:44 Dose: 25 mg Rosuvastatin Calcium (Crestor) 5 mg PO HS [facility] Last Admin: 10/31/18 21:50 Dose: 5 mg Vitamin B Complex/Vit C/Folic Acid (Nephro-Marina) 1 tab PO 0800 [facility] Last Admin: 11/01/18 09:08 Dose: 1 tab - Labs Labs: 10/31/18 08:39 10/31/18 08:39 PT 9.8 SECONDS (9.7-12.2) 10/30/18 08:00 INR 0.9 10/30/18 08:00 APTT 32 SECONDS (21-34) D 10/30/18 08:00 Assessment and Plan - Assessment and Plan (Free Text) Assessment: ESRD ON HD M W F ANEMIA OF CKD .. H/H STABLE ELECTROLYTES ABN .. THEY R OK CLOTTED AVF .. S/P TUNNELLED CATH INSERTION FOR AVF REPAIRS BY DR HALEY C/O CURRENT CARE
[2018-11-01] MEDS: (Lantus) Insulin Glargine, Recombinant SC SCH (21:54)
[2018-11-02] MEDS: (Novolog) Insulin Aspart, Recombinant 100 u/ml 10 ml vial SC SCH ×6 (08:10→21:55)
[2018-11-02] MEDS: Multivitamin Vitamin B Complex (Nephro-Vite) Tab PO SCH (08:36)
--- NOTE | 2018-11-02 17:47 | CP.PCM.CON ---
History of Present Illness - History of Present Illness History of Present Illness: pain at catheter site denies fever Review of Systems - Review of Systems All systems: reviewed and no additional remarkable complaints except Past Patient History - Infectious Disease Hx of Infectious Diseases: None - Tetanus Immunizations Tetanus Immunization: Unknown, Up to Date - Past Medical History & Family History Past Medical History?: Yes - Past Social History Smoking Status: Never Smoked - CARDIAC Hx Congestive Heart Failure: Yes Hx Hypertension: Yes - PULMONARY Hx Asthma: Yes Hx Bronchitis: Yes Hx Chronic Obstructive Pulmonary Disease (COPD): Yes Hx Emphysema: Yes - NEUROLOGICAL Hx Dementia: Yes Hx Migraine: Yes Hx Transient Ischemic Attacks (TIA): Yes - HEENT Hx HEENT Problems: Yes Hx Blind: Yes (Left eye.) - RENAL Hx Chronic Kidney Disease: Yes - ENDOCRINE/METABOLIC Hx Endocrine Disorders: Yes Hx Diabetes Mellitus Type 2: Yes - HEMATOLOGICAL/ONCOLOGICAL Hx Blood Disorders: No - INTEGUMENTARY Hx Dermatological Problems: Yes Hx Cellulitis: Yes Hx Eczema: Yes - MUSCULOSKELETAL/RHEUMATOLOGICAL Hx Arthritis: Yes - GASTROINTESTINAL Hx Gastrointestinal Disorders: Yes Hx Gastroesophageal Reflux: Yes Hx Hemorrhoids: Yes - GENITOURINARY/GYNECOLOGICAL Hx Genitourinary Disorders: Yes Hx Urinary Tract Infection: Yes - PSYCHIATRIC Hx Anxiety: Yes Hx Depression: Yes Hx Substance Use: No - SURGICAL HISTORY Hx Surgeries: Yes Hx Arteriovenous Shunt: Yes (right arm) - ANESTHESIA Hx Anesthesia: Yes Hx Anesthesia Reactions: No Hx Malignant Hyperthermia: No Meds Allergies/Adverse Reactions: Allergies Allergy/AdvReac Type Severity Reaction Status Date / Time No Known Allergies Allergy Verified 10/27/18 08:11 - Medications Medications: Current Medications Acetaminophen (Tylenol 325mg Tab) 650 mg PO Q6 PRN PRN Reason: Pain, moderate (4-7) Last Admin: 11/01/18 22:49 Dose: 650 mg Aspirin (Aspirin Chewable) 81 mg PO DAILY [facility] Last Admin: 11/02/18 10:11 Dose: 81 mg Clopidogrel Bisulfate (Plavix) 75 mg PO DAILY [facility] Last Admin: 10/31/18 09:38 Dose: 75 mg Dextrose (Dextrose 50% Inj) 0 ml IV STAT PRN; Protocol PRN Reason: Hypoglycemia Protocol Last Admin: 11/01/18 16:43 Dose: 50 ml Dextrose (Glutose 15) 0 gm PO ONCE PRN; Protocol PRN Reason: Hypoglycemia Protocol Enalapril Maleate (Vasotec) 10 mg PO DAILY [facility] Last Admin: 11/02/18 10:11 Dose: 10 mg Famotidine (Pepcid) 20 mg IVP DAILY [facility] Last Admin: 11/02/18 10:16 Dose: 20 mg Glucagon (Glucagen Diagnostic Kit) 0 mg IM STAT PRN; Protocol PRN Reason: Hypoglycemia Protocol Hydralazine HCl (Apresoline) 25 mg PO TID [facility] Last Admin: 11/01/18 13:27 Dose: 25 mg Insulin Aspart (Novolog) 0 unit SC ACHS [facility] Last Admin: 11/02/18 12:18 Dose: 4 units Insulin Aspart (Novolog) 22 unit SC ACBD [facility] Last Admin: 11/02/18 08:11 Dose: Not Given Insulin Glargine (Lantus) 44 unit SC HS [facility] Last Admin: 11/01/18 21:54 Dose: 44 units Levetiracetam (Keppra) 500 mg PO DIAL [facility] Losartan Potassium (Cozaar) 50 mg PO DAILY [facility] Last Admin: 11/02/18 10:11 Dose: 50 mg Montelukast Sodium (Singulair) 10 mg PO DAILY [facility] Last Admin: 11/02/18 10:11 Dose: 10 mg Quetiapine Fumarate (Seroquel) 25 mg PO DAILY [facility] Last Admin: 10/28/18 10:44 Dose: 25 mg Rosuvastatin Calcium (Crestor) 5 mg PO HS [facility] Last Admin: 11/01/18 21:53 Dose: 5 mg Vitamin B Complex/Vit C/Folic Acid (Nephro-Marina) 1 tab PO 0800 [facility] Last Admin: 11/02/18 08:36 Dose: 1 tab Physical Exam - Constitutional Appears: No Acute Distress, Cachectic, Chronically Ill - Head Exam Head Exam: ATRAUMATIC, NORMOCEPHALIC - Eye Exam Eye Exam: absent: Scleral icterus - ENT Exam ENT Exam: Mucous Membranes Dry - Neck Exam Neck exam: Negative for: Lymphadenopathy - Respiratory Exam Respiratory Exam: Decreased Breath Sounds - Cardiovascular Exam Cardiovascular Exam: REGULAR RHYTHM - GI/Abdominal Exam GI & Abdominal Exam: Diminished Bowel Sounds, Soft. absent: Tenderness - Rectal Exam Rectal Exam: Deferred - Exam Exam: NORMAL INSPECTION - Extremities Exam Extremities exam: Negative for: pedal edema - Back Exam Back exam: absent: CVA tenderness (L), CVA tenderness (R) - Neurological Exam Neurological exam: Alert, CN II-XII Intact, Oriented x3, Reflexes Normal - Psychiatric Exam Psychiatric exam: Depressed - Skin Skin Exam: Dry - Additional Findings Additional findings: catheter site ok no pus no drainage Results - Vital Signs Recent Vital Signs: Last Vital Signs Temp 97.9 F 11/02/18 15:30 Pulse 75 11/02/18 15:30 Resp 20 11/02/18 15:30 BP 129/67 11/02/18 15:30 Pulse Ox 98 11/02/18 15:30 - Labs Result Diagrams: 11/04/18 08:13 11/04/18 08:13 Labs: Laboratory Results - last 24 hr 11/01/18 11/02/18 11/02/18 21:29 03:20 07:38 POC Glucose (mg/dL) 223 H 342 H 217 H 11/02/18 11/02/18 11:40 16:41 POC Glucose (mg/dL) 367 H 475 H* Assessment & Plan (1) ESRD (end stage renal disease) Status: Chronic - Assessment and Plan (Free Text) Assessment: catheter site pain no obvious infection will check cultures discussed with Dr Mccracken
--- NOTE | 2018-11-02 21:26 | CP.PCM.PN ---
Subjective - Date & Time of Evaluation Date of Evaluation: 11/02/18 Time of Evaluation: 16:55 - Subjective Subjective: patient still has left shoulder pain. Blood sugar was 425 this afternoon. patient does rule for dialysis in a.m. we will need to increase insulin dosage. patient evaluated by Dr. dawkins. Objective - Vital Signs/Intake and Output Vital Signs (last 24 hours): Temp Pulse Resp BP Pulse Ox 97.9 F 75 20 129/67 98 11/02/18 15:30 11/02/18 15:30 11/02/18 15:30 11/02/18 15:30 11/02/18 15:30 Intake and Output: 11/02/18 11/03/18 18:59 06:59 Intake Total 240 Balance 240 - Medications Medications: Current Medications Acetaminophen (Tylenol 325mg Tab) 650 mg PO Q6 PRN PRN Reason: Pain, moderate (4-7) Last Admin: 11/02/18 18:10 Dose: 650 mg Aspirin (Aspirin Chewable) 81 mg PO DAILY [facility] Last Admin: 11/02/18 10:11 Dose: 81 mg Clopidogrel Bisulfate (Plavix) 75 mg PO DAILY [facility] Last Admin: 10/31/18 09:38 Dose: 75 mg Dextrose (Dextrose 50% Inj) 0 ml IV STAT PRN; Protocol PRN Reason: Hypoglycemia Protocol Last Admin: 11/01/18 16:43 Dose: 50 ml Dextrose (Glutose 15) 0 gm PO ONCE PRN; Protocol PRN Reason: Hypoglycemia Protocol Enalapril Maleate (Vasotec) 10 mg PO DAILY [facility] Last Admin: 11/02/18 10:11 Dose: 10 mg Famotidine (Pepcid) 20 mg IVP DAILY [facility] Last Admin: 11/02/18 10:16 Dose: 20 mg Glucagon (Glucagen Diagnostic Kit) 0 mg IM STAT PRN; Protocol PRN Reason: Hypoglycemia Protocol Hydralazine HCl (Apresoline) 25 mg PO TID [facility] Last Admin: 11/01/18 13:27 Dose: 25 mg Insulin Aspart (Novolog) 0 unit SC ACHS [facility] Last Admin: 11/02/18 16:30 Dose: 5 units Insulin Aspart (Novolog) 22 unit SC ACBD [facility] Last Admin: 11/02/18 08:11 Dose: Not Given Insulin Glargine (Lantus) 44 unit SC HS [facility] Last Admin: 11/01/18 21:54 Dose: 44 units Levetiracetam (Keppra) 500 mg PO DIAL [facility] Losartan Potassium (Cozaar) 50 mg PO DAILY [facility] Last Admin: 11/02/18 10:11 Dose: 50 mg Montelukast Sodium (Singulair) 10 mg PO DAILY [facility] Last Admin: 11/02/18 10:11 Dose: 10 mg Quetiapine Fumarate (Seroquel) 25 mg PO DAILY [facility] Last Admin: 10/28/18 10:44 Dose: 25 mg Rosuvastatin Calcium (Crestor) 5 mg PO HS [facility] Last Admin: 11/01/18 21:53 Dose: 5 mg Vitamin B Complex/Vit C/Folic Acid (Nephro-Marina) 1 tab PO 0800 [facility] Last Admin: 11/02/18 08:36 Dose: 1 tab - Labs Labs: 10/31/18 08:39 10/31/18 08:39 PT 9.8 SECONDS (9.7-12.2) 10/30/18 08:00 INR 0.9 10/30/18 08:00 APTT 32 SECONDS (21-34) D 10/30/18 08:00 - Constitutional Appears: Chronically Ill - Head Exam Head Exam: NORMOCEPHALIC - Eye Exam Eye Exam: Normal appearance Pupil Exam: NORMAL ACCOMODATION - ENT Exam ENT Exam: Normal Exam - Neck Exam Neck Exam: Normal Inspection - Respiratory Exam Respiratory Exam: Decreased Breath Sounds - Cardiovascular Exam Cardiovascular Exam: REGULAR RHYTHM - GI/Abdominal Exam GI & Abdominal Exam: Normal Bowel Sounds - Rectal Exam Rectal Exam: Deferred - Exam External exam: NORMAL EXTERNAL EXAM - Extremities Exam Extremities Exam: Tenderness - Back Exam Back Exam: NORMAL INSPECTION - Neurological Exam Neurological Exam: Awake - Psychiatric Exam Psychiatric exam: Depressed - Skin Skin Exam: Dry Assessment and Plan (1) ESRD (end stage renal disease) Status: Acute (2) Lactic acidosis Status: Acute (3) Altered mental status Status: Acute (4) Arthralgia Status: Acute (5) Uncontrolled diabetes mellitus Status: Acute
[2018-11-02] MEDS: (Lantus) Insulin Glargine, Recombinant SC SCH (21:55)
--- NOTE | 2018-11-03 03:58 | PN ---
DATE: 11/02/2018 ENDO FOLLOWUP NOTE LOCATION: Room 358. SUBJECTIVE: This is an 82-year-old female with recent uncontrolled type 2 insulin-requiring diabetes, now being followed closely for metabolic management. Her glycemic levels are still fluctuating as noted they are and the glucose values have ranged from 217 to 362 and 475 mg/dL. Her chemistry showed a BUN of 43, sodium 136, potassium 4.3, chloride 99, CO2 27, glucose 398 and creatinine 3.6. So at this time, we will modify once again her basal and bolus insulin regimen and increase the Novolog to 24 units subcu t.i.d before meals to start today as ordered. We will also increase the basal insulin with Lantus to be given as 50 units subcu at bedtime daily as given. We will obtain serial chemistries and supplement accordingly as needed. We will follow with you. Bella Gold MD
[2018-11-03] MEDS: (Novolog) Insulin Aspart, Recombinant 100 u/ml 10 ml vial SC SCH ×7 (07:27→21:56)
[2018-11-03] MEDS: Multivitamin Vitamin B Complex (Nephro-Vite) Tab PO SCH (08:33)
[2018-11-03 15:25] LABS: ALB/GLOB RATIO 1.3 (1.0-2.1); ALBUMIN 3.2 g/dL (3.5-5.0); CALCIUM 8.8 mg/dl (8.6-10.4)
[2018-11-03] MEDS: levETIRAcetam 100 mg/ml (5ml) Oral Syringe PO SCH (17:41)
--- NOTE | 2018-11-03 21:25 | CP.PCM.PN ---
Subjective - Date & Time of Evaluation Date of Evaluation: 11/03/18 Time of Evaluation: 17:30 - Subjective Subjective: Vascular Surgery Progress note. Dr. Mccormick Pt seen and examined in the dialysis suite. Patient denies any complaints. HD nurse states that the RIJ permacath flow is somewhat diminished. Objective - Vital Signs/Intake and Output Vital Signs (last 24 hours): Temp Pulse Resp BP Pulse Ox 98.5 F 80 18 134/99 H 97 11/03/18 15:00 11/03/18 15:00 11/03/18 17:30 11/03/18 18:00 11/03/18 17:30 - Medications Medications: Current Medications Acetaminophen (Tylenol 325mg Tab) 650 mg PO Q6 PRN PRN Reason: Pain, moderate (4-7) Last Admin: 11/03/18 09:46 Dose: 650 mg Aspirin (Aspirin Chewable) 81 mg PO DAILY [facility] Last Admin: 11/03/18 09:48 Dose: 81 mg Clopidogrel Bisulfate (Plavix) 75 mg PO DAILY [facility] Last Admin: 10/31/18 09:38 Dose: 75 mg Dextrose (Dextrose 50% Inj) 0 ml IV STAT PRN; Protocol PRN Reason: Hypoglycemia Protocol Last Admin: 11/01/18 16:43 Dose: 50 ml Dextrose (Glutose 15) 0 gm PO ONCE PRN; Protocol PRN Reason: Hypoglycemia Protocol Enalapril Maleate (Vasotec) 10 mg PO DAILY [facility] Last Admin: 11/03/18 09:46 Dose: 10 mg Famotidine (Pepcid) 20 mg IVP DAILY [facility] Last Admin: 11/03/18 09:45 Dose: 20 mg Glucagon (Glucagen Diagnostic Kit) 0 mg IM STAT PRN; Protocol PRN Reason: Hypoglycemia Protocol Hydralazine HCl (Apresoline) 25 mg PO TID [facility] Last Admin: 11/01/18 13:27 Dose: 25 mg Insulin Aspart (Novolog) 0 unit SC ACHS [facility] Last Admin: 11/03/18 16:30 Dose: Not Given Insulin Aspart (Novolog) 24 unit SC AC [facility] Last Admin: 11/03/18 16:30 Dose: Not Given Insulin Glargine (Lantus) 50 unit SC HS [facility] Levetiracetam (Keppra) 500 mg PO DIAL [facility] Last Admin: 11/03/18 17:41 Dose: 500 mg Losartan Potassium (Cozaar) 50 mg PO DAILY [facility] Last Admin: 11/03/18 09:46 Dose: 50 mg Montelukast Sodium (Singulair) 10 mg PO DAILY [facility] Last Admin: 11/03/18 09:46 Dose: 10 mg Quetiapine Fumarate (Seroquel) 25 mg PO DAILY [facility] Last Admin: 10/28/18 10:44 Dose: 25 mg Rosuvastatin Calcium (Crestor) 5 mg PO HS [facility] Last Admin: 11/02/18 21:52 Dose: 5 mg Vitamin B Complex/Vit C/Folic Acid (Nephro-Marina) 1 tab PO 0800 [facility] Last Admin: 11/03/18 08:33 Dose: 1 tab - Labs Labs: 10/31/18 08:39 11/03/18 14:59 PT 9.8 SECONDS (9.7-12.2) 10/30/18 08:00 INR 0.9 10/30/18 08:00 APTT 32 SECONDS (21-34) D 10/30/18 08:00 - Constitutional Appears: Non-toxic, No Acute Distress - Head Exam Head Exam: ATRAUMATIC, NORMAL INSPECTION, NORMOCEPHALIC - Eye Exam Eye Exam: EOMI, Normal appearance. absent: Scleral icterus - ENT Exam ENT Exam: Mucous Membranes Moist - Respiratory Exam Respiratory Exam: NORMAL BREATHING PATTERN. absent: Accessory Muscle Use, Respiratory Distress - Cardiovascular Exam Cardiovascular Exam: RRR. absent: JVD - GI/Abdominal Exam GI & Abdominal Exam: Soft. absent: Firm, Guarding, Rigid, Tenderness, Rebound - Extremities Exam Extremities Exam: Normal Inspection. absent: Calf Tenderness Additional comments: Right Upper Extremity with prior non-functioning AVF scars noted. Permacath in place, getting HD currently. - Neurological Exam Neurological Exam: Awake Assessment and Plan - Assessment and Plan (Free Text) Assessment: 83yo F w ESRD on HD. s/p L IJ Permacath placement POD 4. Plan: - Will plan for OR tomorrow, 11/04/18 for AVF - Telephone consent obtained from daughter, Nova Archibald, and on chart - NPO past mn - HD via Permacath at this time. Further recs as per Dr. Anny Coyne PGY2 surgery
[2018-11-03] MEDS: (Lantus) Insulin Glargine, Recombinant SC SCH (21:54)
--- NOTE | 2018-11-03 22:52 | CP.PCM.PN ---
Subjective - Date & Time of Evaluation Date of Evaluation: 11/03/18 Time of Evaluation: 12:30 - Subjective Subjective: patient is receiving dialysis today. She continues to complaint of left shoulder pain. We'll ask Dr. Mccormick to check the permacath placement. Blood sugar value was elevated today. patient is somewhat lithargic. continue Accu- Chek insulin coverage. Objective - Vital Signs/Intake and Output Vital Signs (last 24 hours): Temp Pulse Resp BP Pulse Ox 98.5 F 80 18 134/99 H 97 11/03/18 15:00 11/03/18 15:00 11/03/18 17:30 11/03/18 18:00 11/03/18 17:30 - Medications Medications: Current Medications Acetaminophen (Tylenol 325mg Tab) 650 mg PO Q6 PRN PRN Reason: Pain, moderate (4-7) Last Admin: 11/03/18 09:46 Dose: 650 mg Aspirin (Aspirin Chewable) 81 mg PO DAILY [facility] Last Admin: 11/03/18 09:48 Dose: 81 mg Clopidogrel Bisulfate (Plavix) 75 mg PO DAILY [facility] Last Admin: 10/31/18 09:38 Dose: 75 mg Dextrose (Dextrose 50% Inj) 0 ml IV STAT PRN; Protocol PRN Reason: Hypoglycemia Protocol Last Admin: 11/01/18 16:43 Dose: 50 ml Dextrose (Glutose 15) 0 gm PO ONCE PRN; Protocol PRN Reason: Hypoglycemia Protocol Enalapril Maleate (Vasotec) 10 mg PO DAILY [facility] Last Admin: 11/03/18 09:46 Dose: 10 mg Famotidine (Pepcid) 20 mg IVP DAILY [facility] Last Admin: 11/03/18 09:45 Dose: 20 mg Glucagon (Glucagen Diagnostic Kit) 0 mg IM STAT PRN; Protocol PRN Reason: Hypoglycemia Protocol Hydralazine HCl (Apresoline) 25 mg PO TID [facility] Last Admin: 11/01/18 13:27 Dose: 25 mg Insulin Aspart (Novolog) 0 unit SC ACHS [facility] Last Admin: 11/03/18 21:56 Dose: 4 units Insulin Aspart (Novolog) 14 unit SC AC [facility] Insulin Glargine (Lantus) 50 unit SC HS [facility] Last Admin: 11/03/18 21:54 Dose: 50 units Levetiracetam (Keppra) 500 mg PO DIAL [facility] Last Admin: 11/03/18 17:41 Dose: 500 mg Losartan Potassium (Cozaar) 50 mg PO DAILY [facility] Last Admin: 11/03/18 09:46 Dose: 50 mg Montelukast Sodium (Singulair) 10 mg PO DAILY [facility] Last Admin: 11/03/18 09:46 Dose: 10 mg Quetiapine Fumarate (Seroquel) 25 mg PO DAILY [facility] Last Admin: 10/28/18 10:44 Dose: 25 mg Rosuvastatin Calcium (Crestor) 5 mg PO HS [facility] Last Admin: 11/03/18 21:54 Dose: 5 mg Vitamin B Complex/Vit C/Folic Acid (Nephro-Marina) 1 tab PO 0800 [facility] Last Admin: 11/03/18 08:33 Dose: 1 tab - Labs Labs: 10/31/18 08:39 11/03/18 14:59 PT 9.8 SECONDS (9.7-12.2) 10/30/18 08:00 INR 0.9 10/30/18 08:00 APTT 32 SECONDS (21-34) D 10/30/18 08:00 - Constitutional Appears: Chronically Ill - Head Exam Head Exam: NORMOCEPHALIC - Eye Exam Eye Exam: Periorbital swelling Pupil Exam: NORMAL ACCOMODATION - ENT Exam ENT Exam: Normal Exam - Neck Exam Neck Exam: Normal Inspection - Respiratory Exam Respiratory Exam: Decreased Breath Sounds - Cardiovascular Exam Cardiovascular Exam: REGULAR RHYTHM - GI/Abdominal Exam GI & Abdominal Exam: Normal Bowel Sounds - Rectal Exam Rectal Exam: Deferred - Exam External exam: NORMAL EXTERNAL EXAM - Extremities Exam Extremities Exam: Tenderness - Back Exam Back Exam: NORMAL INSPECTION - Neurological Exam Neurological Exam: Oriented x3 - Psychiatric Exam Psychiatric exam: Depressed - Skin Skin Exam: Dry Assessment and Plan (1) ESRD (end stage renal disease) Status: Acute (2) Lactic acidosis Status: Acute (3) Altered mental status Status: Acute (4) Arthralgia Status: Acute (5) Uncontrolled diabetes mellitus Status: Acute
--- NOTE | 2018-11-04 00:10 | CP.PCM.PN ---
Subjective - Date & Time of Evaluation Date of Evaluation: 11/03/18 Time of Evaluation: 17:00 - Subjective Subjective: SEEN ON RENAL F/U SEEN ON HD FOR AVF IN AM GETTING HD THROUGH TUNNELLED CATH Objective - Vital Signs/Intake and Output Vital Signs (last 24 hours): Temp Pulse Resp BP Pulse Ox 98.5 F 80 18 134/99 H 97 11/03/18 15:00 11/03/18 15:00 11/03/18 17:30 11/03/18 18:00 11/03/18 17:30 Intake and Output: 11/03/18 11/04/18 18:59 06:59 Intake Total 300 Balance 300 - Medications Medications: Current Medications Acetaminophen (Tylenol 325mg Tab) 650 mg PO Q6 PRN PRN Reason: Pain, moderate (4-7) Last Admin: 11/03/18 09:46 Dose: 650 mg Aspirin (Aspirin Chewable) 81 mg PO DAILY [facility] Last Admin: 11/03/18 09:48 Dose: 81 mg Clopidogrel Bisulfate (Plavix) 75 mg PO DAILY [facility] Last Admin: 10/31/18 09:38 Dose: 75 mg Dextrose (Dextrose 50% Inj) 0 ml IV STAT PRN; Protocol PRN Reason: Hypoglycemia Protocol Last Admin: 11/01/18 16:43 Dose: 50 ml Dextrose (Glutose 15) 0 gm PO ONCE PRN; Protocol PRN Reason: Hypoglycemia Protocol Enalapril Maleate (Vasotec) 10 mg PO DAILY [facility] Last Admin: 11/03/18 09:46 Dose: 10 mg Famotidine (Pepcid) 20 mg IVP DAILY [facility] Last Admin: 11/03/18 09:45 Dose: 20 mg Glucagon (Glucagen Diagnostic Kit) 0 mg IM STAT PRN; Protocol PRN Reason: Hypoglycemia Protocol Hydralazine HCl (Apresoline) 25 mg PO TID [facility] Last Admin: 11/01/18 13:27 Dose: 25 mg Insulin Aspart (Novolog) 0 unit SC ACHS [facility] Last Admin: 11/03/18 21:56 Dose: 4 units Insulin Aspart (Novolog) 14 unit SC AC [facility] Insulin Glargine (Lantus) 50 unit SC HS [facility] Last Admin: 11/03/18 21:54 Dose: 50 units Levetiracetam (Keppra) 500 mg PO DIAL [facility] Last Admin: 11/03/18 17:41 Dose: 500 mg Losartan Potassium (Cozaar) 50 mg PO DAILY [facility] Last Admin: 11/03/18 09:46 Dose: 50 mg Montelukast Sodium (Singulair) 10 mg PO DAILY [facility] Last Admin: 11/03/18 09:46 Dose: 10 mg Quetiapine Fumarate (Seroquel) 25 mg PO DAILY [facility] Last Admin: 10/28/18 10:44 Dose: 25 mg Rosuvastatin Calcium (Crestor) 5 mg PO HS [facility] Last Admin: 11/03/18 21:54 Dose: 5 mg Vitamin B Complex/Vit C/Folic Acid (Nephro-Marina) 1 tab PO 0800 [facility] Last Admin: 11/03/18 08:33 Dose: 1 tab - Labs Labs: 10/31/18 08:39 11/03/18 14:59 PT 9.8 SECONDS (9.7-12.2) 10/30/18 08:00 INR 0.9 10/30/18 08:00 APTT 32 SECONDS (21-34) D 10/30/18 08:00 Assessment and Plan - Assessment and Plan (Free Text) Assessment: ESRD ON HD M W F S/P TUNNELLED HD CATH AVF GOT CLOTED ANEMIA OF CKD .. H/H STABLE MMP P ; c/o hd on m w f for avf in am c/o current meds
--- NOTE | 2018-11-04 05:54 | PN ---
DATE: 11/04/2018 ENDO FOLLOWUP NOTE LOCATION: Room 358. SUBJECTIVE: This is an 82-year-old female with recent uncontrolled type 2 insulin-requiring diabetes, now being followed closely for metabolic management. Her glycemic levels are fluctuating but improved and the glucose values have ranged today from 65 to 70 and 355 mg/dL. She has been fixed over now from an n.p.o. status to full carb-consistent diet as noted tonight. Her chemistry showed a BUN of 81, sodium 133, potassium 3.9, chloride 98, CO2 of 24, glucose 90, and creatinine 6.3. PLAN OF MANAGEMENT: So at this time, we will modify once again her prandial insulin and lower the Novolog to 14 units t.i.d. before meals to start tomorrow morning as ordered. We will also continue the Lantus given as 50 units subcu at bedtime daily to start tonight. We will continue the low dose correction scale using Novolog insulin as given. We will follow. Bella Gold MD
--- NOTE | 2018-11-04 07:30 | PN ---
DATE: 11/03/2018 LOCATION: Room 358. SUBJECTIVE: This is an 82-year-old female with recent uncontrolled type 2 insulin-requiring diabetes, now being followed closely for metabolic management. Her glycemic levels are fluctuating but much improved at this time and the glucose levels have ranged from 217 to 367 mg/dL. Her chemistry showed a BUN of 43, sodium 136, potassium 4.3, chloride 99, CO2 of 398 and creatinine 3.6. So, at this time, we will modify once again her basal and bolus insulin regimen and titrate to NovoLog given as 24 units subcu t.i.d. before meals as ordered. We will also increase the basal insulin with Lantus to be given at a higher dose of 50 units subcu at bedtime daily to start tonight. We will continue the low-dose correction scale using NovoLog insulin as given. Titrate incremental as indicated to optimize metabolic control. We will follow. Bella Gold MD
[2018-11-04] MEDS: (Novolog) Insulin Aspart, Recombinant 100 u/ml 10 ml vial SC SCH ×8 (07:33→22:04)
[2018-11-04] MEDS: Multivitamin Vitamin B Complex (Nephro-Vite) Tab PO SCH (07:49)
[2018-11-04 08:18] LABS: HEMOGLOBIN 10.4 g/dL (11.0-16.0); MEAN CELL VOLUME 84.6 fL (81.0-99.0); MEAN CORPUSCULAR HEMOGLOBIN 27.3 pg (27.0-31.0); MEAN CORPUSCULAR HGB CONC 32.2 g/dL (33.0-37.0); MEAN PLATELET VOLUME 9.6 fL (7.2-11.7); RBC 3.81 Mil/uL (3.80-5.20); RED CELL DISTRIBUTION WIDTH 17.5 % (11.5-14.5)
[2018-11-04 08:39] LABS: CALCIUM 9.2 mg/dl (8.6-10.4)
--- NOTE | 2018-11-04 09:06 | CP.PCM.PCO ---
Assessment/Plan - Assessment and Plan (Free Text) Assessment: pt is a 83 yo f ho dm, htn, hyperlipidemia, chf, scheduled for avf (?revision). Pt was admitted with uncontrolled DM and changes on EKG. please document medical optimization prior to procedure.
[2018-11-04] MEDS ORDERED: ceFAZolin 1 gm in NS 1 GM/100 ML BAG IVPB ONE (11:07)
[2018-11-04] MEDS ORDERED: HEPARIN-NS 5,000 UNITS/500 ML 10,000 UNIT/1,000 ML BAG IV ONE (11:07)
[2018-11-04 12:02] LABS: TROPONIN I 0.078 ng/mL (0.00-0.120)
--- NOTE | 2018-11-04 12:05 | PCM.ANES ---
Assessment/Plan - Assessment and Plan (Free Text) Assessment: Discussed case with Dr. Mei. He is familiar with the patient and recommends no further cardiac testing. Pt is acceptable risk for surgery. Will proceed at this time.
[2018-11-04 12:19] LABS: TROPONIN I 0.075 ng/mL (0.00-0.120)
[2018-11-04] MEDS ORDERED: Midazolam 2 MG/2 ML VIAL ONE (12:38)
[2018-11-04] MEDS ORDERED: Propofol 10 mg/ml Inj (20 ML) ONE (12:38)
[2018-11-04] MEDS ORDERED: HYDROmorphone 0.5 mg/0.5 ml ISec IVP PRN (15:47)
[2018-11-04] MEDS ORDERED: Sodium Chloride 0.9% 1,000 ML IV ONE (16:07)
--- NOTE | 2018-11-04 16:08 | PCM.SURG1 ---
Surgeon's Initial Post Op Note - Surgeon's Notes Surgeon: Dr. Mccormick Rn Training: Dr. Sorto Type of Anesthesia: General LMA Pre-Operative Diagnosis: AVF and permacath malfunction Operative Findings: see operative dictation Post-Operative Diagnosis: same Operation Performed: Right arm AV fistula revision, Left IJ permacath exchange Specimen/Specimens Removed: none Estimated Blood Loss: EBL {In ML}: 100 Blood Products Given: N/A Drains Used: No Drains Post-Op Condition: Good Date of Surgery/Procedure: 11/04/18 Time of Surgery/Procedure: 16:08
[2018-11-04] MEDS ORDERED: (Novolin R) Insulin Human Regular 100 units/ml vial SC ONE (16:41)
--- NOTE | 2018-11-04 17:04 | RAD ---
Date of service: 11/04/2018 HISTORY: s/p permacath exchange COMPARISON: 10/30/2018 at 1646 hr FINDINGS: LUNGS: Shallow lung volumes similar. The nodular confluent prominence of the right hilum is as before. There is interval branching linear opacities over the right mid and lower lung zone continuing to this nodular like prominent right hilum-discoid atelectasis with or without some mucous plugging is a consideration.. As mentioned before concomitant underlying right hilar pathology cannot be excluded. Minimal air bronchograms left infrahilar location also projecting over the heart. Some of peribronchiolar inflammatory changes and/or trace surrounding minimal atelectatic changes here are possible in a single frontal view. PLEURA: No significant pleural effusion identified, a small left pleural effusion and/or left inferolateral pleural thickening is possible. Summation soft tissues can also simulate this appearance. No pneumothorax apparent. CARDIOVASCULAR: There is presence of aortic atherosclerotic calcification on x-ray. Mild cardiomegaly-similar. Mild pulmonary venous congestion-similar. The prior Perma catheter 1 tip appears to have been advanced further into the heart than it was before. Correlate clinically with this. Consider retraction-repositioning. Right subclavian vascular [id number] OSSEOUS STRUCTURES: Thoracic spondylosis-bilateral shoulder arthrosis. VISUALIZED UPPER ABDOMEN: Normal. OTHER FINDINGS: None. IMPRESSION: Interval change in positioning of the distal PermCath-distal ends projecting further distally into the right heart-longer catheter projecting apparently beyond the right atrium. Correlate clinically. Consider repositioning. This study was read at this time as [facility] in the [facility] called our outpatient facility here stating that the medical personnel taking care this patient wanted a stat reading.. Other findings as above.
[2018-11-04] MEDS: (Lantus) Insulin Glargine, Recombinant SC SCH (21:59)
--- NOTE | 2018-11-04 22:13 | CP.PCM.PN ---
Subjective - Date & Time of Evaluation Date of Evaluation: 11/04/18 Time of Evaluation: 13:25 - Subjective Subjective: patient denies any chest pain today. She is scheduled of her right forearm shunt. Blood sugar poorly controlled today continue Accu-Chek coverage. Patient has abnormal chest x-ray. Will request a CT scan of the chest Objective - Vital Signs/Intake and Output Vital Signs (last 24 hours): Temp Pulse Resp BP Pulse Ox 97.8 F 107 H 15 124/47 L 98 11/04/18 19:16 11/04/18 17:15 11/04/18 17:15 11/04/18 17:15 11/04/18 17:15 Intake and Output: 11/04/18 11/05/18 18:59 06:59 Intake Total 600 Balance 600 - Medications Medications: Current Medications Acetaminophen (Tylenol 325mg Tab) 650 mg PO Q6 PRN PRN Reason: Pain, Mild (1-3) Last Admin: 11/04/18 19:16 Dose: 650 mg Aspirin (Aspirin Chewable) 81 mg PO DAILY [facility] Last Admin: 11/04/18 09:34 Dose: 81 mg Clopidogrel Bisulfate (Plavix) 75 mg PO DAILY [facility] Last Admin: 10/31/18 09:38 Dose: 75 mg Dextrose (Dextrose 50% Inj) 0 ml IV STAT PRN; Protocol PRN Reason: Hypoglycemia Protocol Last Admin: 11/01/18 16:43 Dose: 50 ml Dextrose (Glutose 15) 0 gm PO ONCE PRN; Protocol PRN Reason: Hypoglycemia Protocol Enalapril Maleate (Vasotec) 10 mg PO DAILY [facility] Last Admin: 11/04/18 09:34 Dose: 10 mg Famotidine (Pepcid) 20 mg IVP DAILY [facility] Last Admin: 11/04/18 09:35 Dose: 20 mg Glucagon (Glucagen Diagnostic Kit) 0 mg IM STAT PRN; Protocol PRN Reason: Hypoglycemia Protocol Hydralazine HCl (Apresoline) 25 mg PO TID [facility] Last Admin: 11/01/18 13:27 Dose: 25 mg Insulin Aspart (Novolog) 0 unit SC ACHS [facility] Last Admin: 11/04/18 22:04 Dose: 5 units Insulin Aspart (Novolog) 14 unit SC AC [facility] Last Admin: 11/04/18 16:30 Dose: Not Given Insulin Glargine (Lantus) 50 unit SC HS [facility] Last Admin: 11/04/18 21:59 Dose: 50 units Levetiracetam (Keppra) 500 mg PO DIAL [facility] Last Admin: 11/03/18 17:41 Dose: 500 mg Losartan Potassium (Cozaar) 50 mg PO DAILY [facility] Last Admin: 11/04/18 09:34 Dose: 50 mg Montelukast Sodium (Singulair) 10 mg PO DAILY [facility] Last Admin: 11/04/18 09:34 Dose: 10 mg Oxycodone/Acetaminophen (Percocet 5/325 Mg Tab) 1 tab PO Q6H PRN PRN Reason: Pain, moderate (4-7) Stop: 11/07/18 16:11 Quetiapine Fumarate (Seroquel) 25 mg PO DAILY [facility] Last Admin: 10/28/18 10:44 Dose: 25 mg Rosuvastatin Calcium (Crestor) 5 mg PO HS [facility] Last Admin: 11/04/18 21:31 Dose: 5 mg Vitamin B Complex/Vit C/Folic Acid (Nephro-Marina) 1 tab PO 0800 [facility] Last Admin: 11/04/18 07:49 Dose: 1 tab - Labs Labs: 11/04/18 08:13 11/04/18 08:13 PT 11.0 SECONDS (9.7-12.2) 11/04/18 08:13 INR 1.0 11/04/18 08:13 APTT 36 SECONDS (21-34) H 11/04/18 08:13 - Constitutional Appears: Chronically Ill - Head Exam Head Exam: NORMOCEPHALIC - Eye Exam Eye Exam: Normal appearance Pupil Exam: NORMAL ACCOMODATION - ENT Exam ENT Exam: Normal Exam - Neck Exam Neck Exam: Normal Inspection - Respiratory Exam Respiratory Exam: Decreased Breath Sounds - Cardiovascular Exam Cardiovascular Exam: REGULAR RHYTHM - GI/Abdominal Exam GI & Abdominal Exam: Normal Bowel Sounds - Rectal Exam Rectal Exam: Deferred - Exam External exam: NORMAL EXTERNAL EXAM - Extremities Exam Extremities Exam: Tenderness - Back Exam Back Exam: NORMAL INSPECTION - Neurological Exam Neurological Exam: Awake - Psychiatric Exam Psychiatric exam: Depressed Assessment and Plan (1) ESRD (end stage renal disease) Status: Acute (2) Lactic acidosis Status: Acute (3) Altered mental status Status: Acute (4) Arthralgia Status: Acute (5) Uncontrolled diabetes mellitus Status: Acute
--- NOTE | 2018-11-04 23:49 | CP.PCM.PN ---
Subjective - Date & Time of Evaluation Date of Evaluation: 11/04/18 Time of Evaluation: 19:00 - Subjective Subjective: Patient permacath inserted and AV shunt revised today. Now complaining of pain at the surgical sites. Alert, oriented, in no respiratory distress. Objective - Vital Signs/Intake and Output Vital Signs (last 24 hours): Temp Pulse Resp BP Pulse Ox 97.8 F 107 H 15 124/47 L 98 11/04/18 19:16 11/04/18 17:15 11/04/18 17:15 11/04/18 17:15 11/04/18 17:15 Intake and Output: 11/04/18 11/05/18 18:59 06:59 Intake Total 600 Balance 600 - Medications Medications: Current Medications Acetaminophen (Tylenol 325mg Tab) 650 mg PO Q6 PRN PRN Reason: Pain, Mild (1-3) Last Admin: 11/04/18 19:16 Dose: 650 mg Aspirin (Aspirin Chewable) 81 mg PO DAILY [facility] Last Admin: 11/04/18 09:34 Dose: 81 mg Clopidogrel Bisulfate (Plavix) 75 mg PO DAILY [facility] Last Admin: 10/31/18 09:38 Dose: 75 mg Dextrose (Dextrose 50% Inj) 0 ml IV STAT PRN; Protocol PRN Reason: Hypoglycemia Protocol Last Admin: 11/01/18 16:43 Dose: 50 ml Dextrose (Glutose 15) 0 gm PO ONCE PRN; Protocol PRN Reason: Hypoglycemia Protocol Enalapril Maleate (Vasotec) 10 mg PO DAILY [facility] Last Admin: 11/04/18 09:34 Dose: 10 mg Famotidine (Pepcid) 20 mg IVP DAILY [facility] Last Admin: 11/04/18 09:35 Dose: 20 mg Glucagon (Glucagen Diagnostic Kit) 0 mg IM STAT PRN; Protocol PRN Reason: Hypoglycemia Protocol Hydralazine HCl (Apresoline) 25 mg PO TID [facility] Last Admin: 11/01/18 13:27 Dose: 25 mg Insulin Aspart (Novolog) 0 unit SC ACHS [facility] Last Admin: 11/04/18 22:04 Dose: 5 units Insulin Aspart (Novolog) 14 unit SC AC [facility] Last Admin: 11/04/18 16:30 Dose: Not Given Insulin Glargine (Lantus) 50 unit SC HS [facility] Last Admin: 11/04/18 21:59 Dose: 50 units Levetiracetam (Keppra) 500 mg PO DIAL [facility] Last Admin: 11/03/18 17:41 Dose: 500 mg Losartan Potassium (Cozaar) 50 mg PO DAILY [facility] Last Admin: 11/04/18 09:34 Dose: 50 mg Montelukast Sodium (Singulair) 10 mg PO DAILY [facility] Last Admin: 11/04/18 09:34 Dose: 10 mg Oxycodone/Acetaminophen (Percocet 5/325 Mg Tab) 1 tab PO Q6H PRN PRN Reason: Pain, moderate (4-7) Stop: 11/07/18 16:11 Quetiapine Fumarate (Seroquel) 25 mg PO DAILY [facility] Last Admin: 10/28/18 10:44 Dose: 25 mg Rosuvastatin Calcium (Crestor) 5 mg PO HS [facility] Last Admin: 11/04/18 21:31 Dose: 5 mg Vitamin B Complex/Vit C/Folic Acid (Nephro-Marina) 1 tab PO 0800 [facility] Last Admin: 11/04/18 07:49 Dose: 1 tab - Labs Labs: 11/04/18 08:13 11/04/18 08:13 PT 11.0 SECONDS (9.7-12.2) 11/04/18 08:13 INR 1.0 11/04/18 08:13 APTT 36 SECONDS (21-34) H 11/04/18 08:13 - Constitutional Appears: Well, Chronically Ill - Head Exam Head Exam: NORMAL INSPECTION - Eye Exam Eye Exam: Normal appearance - ENT Exam ENT Exam: Normal Exam - Neck Exam Neck Exam: Normal Inspection - Respiratory Exam Respiratory Exam: Clear to Ausculation Bilateral, NORMAL BREATHING PATTERN - Cardiovascular Exam Cardiovascular Exam: REGULAR RHYTHM - GI/Abdominal Exam GI & Abdominal Exam: Soft, Normal Bowel Sounds - Rectal Exam Rectal Exam: Deferred - Extremities Exam Extremities Exam: Normal Inspection - Back Exam Back Exam: NORMAL INSPECTION - Neurological Exam Neurological Exam: Alert, Awake, Oriented x3 - Psychiatric Exam Psychiatric exam: Anxious - Skin Skin Exam: Dry, Normal Color Assessment and Plan (1) Hyperosmolar non-ketotic state in patient with type 2 diabetes mellitus Status: Resolved (2) Seizure Status: Resolved (3) ESRD (end stage renal disease) Assessment & Plan: HD as per Nephrologists. Status: Chronic
--- NOTE | 2018-11-05 03:15 | OP ---
PROCEDURE DATE: 11/04/2018 PREOPERATIVE DIAGNOSIS: Renal failure. POSTOPERATIVE DIAGNOSIS: Renal failure. PROCEDURE: 1. Revision of arteriovenous fistula, right arm with creation of new arteriovenous fistula, right arm. 2. Insertion of Permacath left jugular vein. SURGEON: Damion Mccormick Jr., MD FRUIT GROWER: None. ANESTHESIOLOGIST: Serena Castillo CRNA INDICATIONS: The patient is an elderly woman with some dementia, previous fistula in the right arm. Had Permacath inserted last week, poor flow, and in addition now, she is in stable enough condition to have revision of her fistula. The forearm portion of the fistula was clotted. The upper portion of the arm had already matured veins. A [id number] fistula was created at the elbow. Using loupe magnification, heparin anticoagulation and vessel loop controlled the vessels. At the end of the procedure, there was excellent flow to the fistula. There was diminution of the pulse at the wrist, but there were excellent Doppler signals. We then turned our attention to the neck and replaced the catheter in the neck using an Arrow type catheter to go deep into the superior vena cava, right atrium, making well aware of the fact that when the patient is in an upright position, this will fall to a less deep position. The old catheter was retracted, a wire placed through, sheath dilator passed over this and then the Arrow catheter was positioned in appropriate location, brought out, draped down on the chest wall, went to the left jugular vein, originated on left chest wall and terminated in superior vena cava. Damion Mccormick Jr., MD
[2018-11-05] MEDS: (Novolog) Insulin Aspart, Recombinant 100 u/ml 10 ml vial SC SCH ×7 (08:01→22:01)
[2018-11-05] MEDS: Multivitamin Vitamin B Complex (Nephro-Vite) Tab PO SCH (08:02)
[2018-11-05] MEDS: Oxycodone/Acetaminophen 5/325 mg Tab PO PRN ×2 (09:56→15:51)
--- NOTE | 2018-11-05 11:04 | CP.PCM.PN ---
Subjective - Date & Time of Evaluation Date of Evaluation: 11/05/18 Time of Evaluation: 11:02 - Subjective Subjective: Surgery Progress Note for Dr. Mccormick 83F seen and evaluated at bedside this morning. No acute events overnight. No complaints this morning. Denies f/c, n/v/d, SOB, CP, or urinary symptoms. Objective - Vital Signs/Intake and Output Vital Signs (last 24 hours): Temp Pulse Resp BP Pulse Ox 98.1 F 90 20 136/63 97 11/05/18 07:00 11/05/18 07:00 11/05/18 07:00 11/05/18 07:00 11/05/18 07:00 Intake and Output: 11/05/18 11/05/18 06:59 18:59 Intake Total 120 Balance 120 - Medications Medications: Current Medications Acetaminophen (Tylenol 325mg Tab) 650 mg PO Q6 PRN PRN Reason: Pain, Mild (1-3) Last Admin: 11/04/18 19:16 Dose: 650 mg Aspirin (Aspirin Chewable) 81 mg PO DAILY [facility] Last Admin: 11/05/18 09:56 Dose: 81 mg Clopidogrel Bisulfate (Plavix) 75 mg PO DAILY [facility] Last Admin: 11/05/18 09:57 Dose: Not Given Dextrose (Dextrose 50% Inj) 0 ml IV STAT PRN; Protocol PRN Reason: Hypoglycemia Protocol Last Admin: 11/01/18 16:43 Dose: 50 ml Dextrose (Glutose 15) 0 gm PO ONCE PRN; Protocol PRN Reason: Hypoglycemia Protocol Enalapril Maleate (Vasotec) 10 mg PO DAILY [facility] Last Admin: 11/05/18 09:58 Dose: Not Given Famotidine (Pepcid) 20 mg IVP DAILY [facility] Last Admin: 11/05/18 09:56 Dose: 20 mg Glucagon (Glucagen Diagnostic Kit) 0 mg IM STAT PRN; Protocol PRN Reason: Hypoglycemia Protocol Hydralazine HCl (Apresoline) 25 mg PO TID [facility] Last Admin: 11/01/18 13:27 Dose: 25 mg Insulin Aspart (Novolog) 0 unit SC ACHS [facility] Last Admin: 11/05/18 08:01 Dose: 5 units Insulin Aspart (Novolog) 14 unit SC AC [facility] Last Admin: 11/05/18 08:02 Dose: 14 units Insulin Glargine (Lantus) 50 unit SC HS [facility] Last Admin: 11/04/18 21:59 Dose: 50 units Levetiracetam (Keppra) 500 mg PO DIAL [facility] Last Admin: 11/03/18 17:41 Dose: 500 mg Losartan Potassium (Cozaar) 50 mg PO DAILY [facility] Last Admin: 11/05/18 09:58 Dose: Not Given Montelukast Sodium (Singulair) 10 mg PO DAILY [facility] Last Admin: 11/05/18 09:56 Dose: 10 mg Oxycodone/Acetaminophen (Percocet 5/325 Mg Tab) 1 tab PO Q6H PRN PRN Reason: Pain, moderate (4-7) Stop: 11/07/18 16:11 Last Admin: 11/05/18 09:56 Dose: 1 tab Quetiapine Fumarate (Seroquel) 25 mg PO DAILY [facility] Last Admin: 10/28/18 10:44 Dose: 25 mg Rosuvastatin Calcium (Crestor) 5 mg PO [facility] Last Admin: 11/04/18 21:31 Dose: 5 mg Vitamin B Complex/Vit C/Folic Acid (Nephro-Marina) 1 tab PO 0800 [facility] Last Admin: 11/05/18 08:02 Dose: 1 tab - Labs Labs: 11/04/18 08:13 11/04/18 08:13 PT 11.0 SECONDS (9.7-12.2) 11/04/18 08:13 INR 1.0 11/04/18 08:13 APTT 36 SECONDS (21-34) H 11/04/18 08:13 - Constitutional Appears: Non-toxic, No Acute Distress - Head Exam Head Exam: ATRAUMATIC, NORMAL INSPECTION, NORMOCEPHALIC - Eye Exam Eye Exam: EOMI - ENT Exam ENT Exam: Mucous Membranes Moist - Respiratory Exam Respiratory Exam: NORMAL BREATHING PATTERN. absent: Respiratory Distress - Cardiovascular Exam Cardiovascular Exam: REGULAR RHYTHM. absent: Tachycardia - GI/Abdominal Exam GI & Abdominal Exam: Soft, Normal Bowel Sounds. absent: Tenderness - Extremities Exam Additional comments: right arm AVF revision site - dressing c/d/i, palpable thrill - Neurological Exam Neurological Exam: Alert, Awake - Skin Skin Exam: Dry, Intact, Normal Color, Warm Additional comments: Left IJ permacath exchange site c/d/i Assessment and Plan - Assessment and Plan (Free Text) Assessment: 83F s/p AVF revision and permacath exchange POD1 Plan: Permacath for dialysis - ok to use Monitor dressing site - dressing changes PRN No further surgical intervention at this time Please reconsult as needed Doug Sorto PGY1
--- NOTE | 2018-11-05 12:41 | RAD ---
Date of service: 11/04/2018 PROCEDURE: Intraoperative Fluoroscopy. HISTORY: DIALYSIS CATH EXCHANGE FINDINGS: Fluoroscopic assistance was provided for dialysis catheter exchange. Please refer to the operative report from JOSE LUIS Khalil.
--- NOTE | 2018-11-05 14:43 | CT ---
Date of service: 11/05/2018 PROCEDURE: CT Chest without contrast HISTORY: possible mass COMPARISON: 10/06/2015 TECHNIQUE: Contiguous axial images were obtained through the chest without intravenous contrast enhancement. Sagittal and coronal reconstructions were performed. Radiation dose (DLP): 448.51 mGy-cm. This CT exam was performed using one or more of the following dose reduction techniques: Automated exposure control, adjustment of the mA and/or kV according to patient size, and/or use of iterative reconstruction technique. FINDINGS: LUNGS: No infiltrate. Calcified granuloma in lingular segment left upper lobe, unchanged. No other pulmonary mass. MEDIASTINUM: Unremarkable thoracic aorta. No aneurysm. Mild cardiomegaly. Tunneled central venous dialysis catheter. There is atherosclerotic calcification of the thoracic aortic arch. There is no congestive change. The main pulmonary artery is normal in diameter. There is no mediastinal or hilar lymphadenopathy. Please note that evaluation of the jerry is limited in the absence of intravenous contrast administration. There is a right brachiocephalic venous stent. There is a confluent nodule in the right lobe of the thyroid measuring approximately 3.8 cm in greatest dimension, associated with nodular calcification at its superior extent. This is grossly unchanged compared to prior CT examination. Further evaluation with thyroid ultrasound examination is advised, however. PLEURA: No pleural fluid. No pneumothorax. BONES: No acute fracture. Multiple Schmorl's nodes, largest in the superior T11 vertebral endplate. These Schmorl's nodes are new since the prior CT examination. UPPER ABDOMEN: Bilateral nonobstructing small renal calculi. Right upper pole renal low-density mass, likely cyst. Unchanged from previous examination. This measures 14 mm in diameter and 13 Hounsfield units in attenuation. OTHER FINDINGS: None. IMPRESSION: No evidence of pulmonary malignancy. No evidence of hilar lymphadenopathy. Cardiomegaly. Right brachiocephalic venous stent. Tunneled central venous dialysis catheter. Calcified granuloma. Additional findings as above.
--- NOTE | 2018-11-05 21:57 | PN ---
DATE: 11/05/2018 LOCATION: Room 358. SUBJECTIVE: This is an 83-year-old female with recent uncontrolled type 2 insulin-requiring diabetes, now being followed closely for metabolic management. Her oral intake remains quite variable, and overnight, once again developed supervening hyperglycemic accelerations as noted thereof. Her glucose levels have ranged from 411 to 429 mg/dL last night, and today, was 401 to 349 mg/dL. LABORATORY DATA: Her chemistry showed a BUN of 48. Sodium 134, potassium 4.2, chloride 97, CO2 of 29, glucose 112, and creatinine 4.5. PLAN: So at this time, we will modify once again her basal and bolus insulin regimen and increase Novolog to 20 units subcu t.i.d. before meals to start today as ordered. We will also increase the basal insulin with Lantus to be given as 60 units subcu at bedtime daily to start tonight. We will titrate incremental as indicated to optimize metabolic control. We will continue also the low dose correction scale using NovoLog insulin as given. We will follow. Bella Gold MD
[2018-11-05] MEDS ORDERED: (Lantus) Insulin Glargine, Recombinant SC SCH (22:00)
--- NOTE | 2018-11-05 22:12 | CP.PCM.PN ---
Subjective - Date & Time of Evaluation Date of Evaluation: 11/05/18 Time of Evaluation: 13:40 - Subjective Subjective: patient complaining of right forearm pain over the site of shunt revision. Patient is mildly confused. blood sugar is not well controlled. Patient had a spike of 412 today. Will increase NovoLog dose. Objective - Vital Signs/Intake and Output Vital Signs (last 24 hours): Temp Pulse Resp BP Pulse Ox 98 F 93 H 16 136/58 L 100 11/05/18 20:15 11/05/18 20:15 11/05/18 20:15 11/05/18 20:15 11/05/18 20:15 - Medications Medications: Current Medications Acetaminophen (Tylenol 325mg Tab) 650 mg PO Q6 PRN PRN Reason: Pain, Mild (1-3) Last Admin: 11/04/18 19:16 Dose: 650 mg Aspirin (Aspirin Chewable) 81 mg PO DAILY [facility] Last Admin: 11/05/18 09:56 Dose: 81 mg Clopidogrel Bisulfate (Plavix) 75 mg PO DAILY [facility] Last Admin: 11/05/18 09:57 Dose: Not Given Dextrose (Dextrose 50% Inj) 0 ml IV STAT PRN; Protocol PRN Reason: Hypoglycemia Protocol Last Admin: 11/01/18 16:43 Dose: 50 ml Dextrose (Glutose 15) 0 gm PO ONCE PRN; Protocol PRN Reason: Hypoglycemia Protocol Enalapril Maleate (Vasotec) 10 mg PO DAILY [facility] Last Admin: 11/05/18 09:58 Dose: Not Given Famotidine (Pepcid) 20 mg IVP DAILY [facility] Last Admin: 11/05/18 09:56 Dose: 20 mg Glucagon (Glucagen Diagnostic Kit) 0 mg IM STAT PRN; Protocol PRN Reason: Hypoglycemia Protocol Heparin Sodium (Porcine) (Heparin) 4,600 units IVP MWF [facility] Last Admin: 11/05/18 20:15 Dose: 4,600 units Hydralazine HCl (Apresoline) 25 mg PO TID [facility] Last Admin: 11/01/18 13:27 Dose: 25 mg Insulin Aspart (Novolog) 0 unit SC ACHS [facility] Last Admin: 11/05/18 22:01 Dose: Not Given Insulin Aspart (Novolog) 20 unit SC AC [facility] Last Admin: 11/05/18 16:30 Dose: 20 units Insulin Glargine (Lantus) 60 unit SC HS [facility] Last Admin: 11/05/18 22:01 Dose: 60 units Levetiracetam (Keppra) 500 mg PO DIAL [facility] Last Admin: 11/03/18 17:41 Dose: 500 mg Losartan Potassium (Cozaar) 50 mg PO DAILY [facility] Last Admin: 11/05/18 09:58 Dose: Not Given Montelukast Sodium (Singulair) 10 mg PO DAILY [facility] Last Admin: 11/05/18 09:56 Dose: 10 mg Oxycodone/Acetaminophen (Percocet 5/325 Mg Tab) 1 tab PO Q6H PRN PRN Reason: Pain, moderate (4-7) Stop: 11/07/18 16:11 Last Admin: 11/05/18 15:51 Dose: 1 tab Quetiapine Fumarate (Seroquel) 25 mg PO DAILY [facility] Last Admin: 10/28/18 10:44 Dose: 25 mg Rosuvastatin Calcium (Crestor) 5 mg PO [facility] Last Admin: 11/05/18 21:38 Dose: 5 mg Vitamin B Complex/Vit C/Folic Acid (Nephro-Marina) 1 tab PO 0800 [facility] Last Admin: 11/05/18 08:02 Dose: 1 tab - Labs Labs: 11/04/18 08:13 11/04/18 08:13 PT 11.0 SECONDS (9.7-12.2) 11/04/18 08:13 INR 1.0 11/04/18 08:13 APTT 36 SECONDS (21-34) H 11/04/18 08:13 - Constitutional Appears: Chronically Ill - Head Exam Head Exam: NORMOCEPHALIC - Eye Exam Eye Exam: Normal appearance Pupil Exam: NORMAL ACCOMODATION - ENT Exam ENT Exam: Normal Exam - Neck Exam Neck Exam: Normal Inspection - Respiratory Exam Respiratory Exam: Decreased Breath Sounds - Cardiovascular Exam Cardiovascular Exam: REGULAR RHYTHM - GI/Abdominal Exam GI & Abdominal Exam: Normal Bowel Sounds - Rectal Exam Rectal Exam: Deferred - Extremities Exam Extremities Exam: Tenderness - Back Exam Back Exam: NORMAL INSPECTION - Neurological Exam Neurological Exam: Awake - Psychiatric Exam Psychiatric exam: Depressed - Skin Skin Exam: Dry Assessment and Plan (1) ESRD (end stage renal disease) Status: Chronic (2) Lactic acidosis Status: Acute (3) Altered mental status Status: Acute (4) Arthralgia Status: Acute (5) Uncontrolled diabetes mellitus Status: Acute
[2018-11-06 07:03] LABS: BASO # 0.1 K/uL (0.0-0.2); BASO % 0.7 % (0.0-2.0); EOS # 0.2 K/uL (0.0-0.7); EOS % 2.8 % (0.0-4.0); HEMOGLOBIN 8.6 g/dL (11.0-16.0); LYMPH # 1.6 K/uL (1.0-4.3); LYMPH % 18.1 % (20.0-40.0); MEAN CELL VOLUME 84.7 fL (81.0-99.0); MEAN CORPUSCULAR HEMOGLOBIN 27.5 pg (27.0-31.0); MEAN CORPUSCULAR HGB CONC 32.5 g/dL (33.0-37.0); MEAN PLATELET VOLUME 9.6 fL (7.2-11.7); MONO # 1.4 K/uL (0.0-0.8); MONO % 16.4 % (0.0-10.0); NEUT # 5.3 K/uL (1.8-7.0); RBC 3.14 Mil/uL (3.80-5.20); RED CELL DISTRIBUTION WIDTH 17.7 % (11.5-14.5); WHITE BLOOD COUNT 8.6 K/uL (4.8-10.8)
[2018-11-06] MEDS: (Novolog) Insulin Aspart, Recombinant 100 u/ml 10 ml vial SC SCH ×6 (08:14→16:30)
[2018-11-06] MEDS: Multivitamin Vitamin B Complex (Nephro-Vite) Tab PO SCH (08:18)
[2018-11-06] MEDS: Oxycodone/Acetaminophen 5/325 mg Tab PO PRN (15:38)
--- NOTE | 2018-11-06 18:43 | CP.PCM.PN ---
Subjective - Date & Time of Evaluation Date of Evaluation: 11/06/18 Time of Evaluation: 17:00 - Subjective Subjective: SEEN ON RENAL F/U RECIEVED HER HD TODAY S/P AVF REVISION FEELS IMPROVED .. PERIODS OF CONFUSION Objective - Vital Signs/Intake and Output Vital Signs (last 24 hours): Temp Pulse Resp BP Pulse Ox 98.1 F 88 20 128/64 98 11/06/18 15:58 11/06/18 15:58 11/06/18 15:58 11/06/18 15:58 11/06/18 15:58 Intake and Output: 11/06/18 11/06/18 06:59 18:59 Intake Total 240 Balance 240 - Medications Medications: Current Medications Acetaminophen (Tylenol 325mg Tab) 650 mg PO Q6 PRN PRN Reason: Pain, Mild (1-3) Last Admin: 11/06/18 09:51 Dose: 650 mg Aspirin (Aspirin Chewable) 81 mg PO DAILY [facility] Last Admin: 11/06/18 09:50 Dose: 81 mg Clopidogrel Bisulfate (Plavix) 75 mg PO DAILY [facility] Last Admin: 11/06/18 09:50 Dose: 75 mg Dextrose (Dextrose 50% Inj) 0 ml IV STAT PRN; Protocol PRN Reason: Hypoglycemia Protocol Last Admin: 11/01/18 16:43 Dose: 50 ml Dextrose (Glutose 15) 0 gm PO ONCE PRN; Protocol PRN Reason: Hypoglycemia Protocol Donepezil HCl (Aricept) 10 mg PO HS [facility] Enalapril Maleate (Vasotec) 10 mg PO DAILY [facility] Last Admin: 11/06/18 09:50 Dose: 10 mg Famotidine (Pepcid) 20 mg PO DAILY [facility] Last Admin: 11/06/18 09:50 Dose: 20 mg Glucagon (Glucagen Diagnostic Kit) 0 mg IM STAT PRN; Protocol PRN Reason: Hypoglycemia Protocol Heparin Sodium (Porcine) (Heparin) 4,600 units IVP MWF [facility] Last Admin: 11/05/18 20:15 Dose: 4,600 units Hydralazine HCl (Apresoline) 25 mg PO TID [facility] Last Admin: 11/01/18 13:27 Dose: 25 mg Insulin Aspart (Novolog) 0 unit SC ACHS [facility] Last Admin: 11/06/18 16:00 Dose: Not Given Insulin Aspart (Novolog) 14 unit SC AC [facility] Last Admin: 11/06/18 16:30 Dose: Not Given Insulin Glargine (Lantus) 50 unit SC HS [facility] Levetiracetam (Keppra) 500 mg PO DIAL [facility] Last Admin: 11/03/18 17:41 Dose: 500 mg Losartan Potassium (Cozaar) 50 mg PO DAILY [facility] Last Admin: 11/06/18 09:50 Dose: 50 mg Montelukast Sodium (Singulair) 10 mg PO DAILY [facility] Last Admin: 11/06/18 09:51 Dose: 10 mg Quetiapine Fumarate (Seroquel) 25 mg PO DAILY [facility] Last Admin: 10/28/18 10:44 Dose: 25 mg Rosuvastatin Calcium (Crestor) 5 mg PO HS [facility] Last Admin: 11/05/18 21:38 Dose: 5 mg Vitamin B Complex/Vit C/Folic Acid (Nephro-Marina) 1 tab PO 0800 [facility] Last Admin: 11/06/18 08:18 Dose: 1 tab - Labs Labs: 11/06/18 06:53 11/04/18 08:13 PT 11.0 SECONDS (9.7-12.2) 11/04/18 08:13 INR 1.0 11/04/18 08:13 APTT 36 SECONDS (21-34) H 11/04/18 08:13 Assessment and Plan - Assessment and Plan (Free Text) Assessment: ESRD ON HD M W F ANEMIA OF CKD .. H/H STABLE ELECTROLYTES ABN .. NOW OK CLOTTED AVF .. S/P REVISION TODAY HYPERGLYCEMIA .. NEEDS BETTER CONTROL MMP P: C/O HD C/O CURRENT MEDS C/O PRESENT CARE
--- NOTE | 2018-11-06 22:24 | CP.PCM.PN ---
Subjective - Date & Time of Evaluation Date of Evaluation: 11/06/18 Time of Evaluation: 13:20 - Subjective Subjective: patient somewhat lethargic and confused at times. blood sugar still fluctuating. Request reevaluation by neurology. Continue to monitor glucose levels with Accu-Chek coverage. Objective - Vital Signs/Intake and Output Vital Signs (last 24 hours): Temp Pulse Resp BP Pulse Ox 98.1 F 88 20 128/64 98 11/06/18 15:58 11/06/18 15:58 11/06/18 15:58 11/06/18 15:58 11/06/18 15:58 - Medications Medications: Current Medications Acetaminophen (Tylenol 325mg Tab) 650 mg PO Q6 PRN PRN Reason: Pain, Mild (1-3) Last Admin: 11/06/18 09:51 Dose: 650 mg Aspirin (Aspirin Chewable) 81 mg PO DAILY [facility] Last Admin: 11/06/18 09:50 Dose: 81 mg Clopidogrel Bisulfate (Plavix) 75 mg PO DAILY [facility] Last Admin: 11/06/18 09:50 Dose: 75 mg Dextrose (Dextrose 50% Inj) 0 ml IV STAT PRN; Protocol PRN Reason: Hypoglycemia Protocol Last Admin: 11/01/18 16:43 Dose: 50 ml Dextrose (Glutose 15) 0 gm PO ONCE PRN; Protocol PRN Reason: Hypoglycemia Protocol Donepezil HCl (Aricept) 10 mg PO HS [facility] Last Admin: 11/06/18 21:50 Dose: 10 mg Enalapril Maleate (Vasotec) 10 mg PO DAILY [facility] Last Admin: 11/06/18 09:50 Dose: 10 mg Famotidine (Pepcid) 20 mg PO DAILY [facility] Last Admin: 11/06/18 09:50 Dose: 20 mg Glucagon (Glucagen Diagnostic Kit) 0 mg IM STAT PRN; Protocol PRN Reason: Hypoglycemia Protocol Heparin Sodium (Porcine) (Heparin) 4,600 units IVP MWF [facility] Last Admin: 11/05/18 20:15 Dose: 4,600 units Hydralazine HCl (Apresoline) 25 mg PO TID [facility] Last Admin: 11/01/18 13:27 Dose: 25 mg Insulin Aspart (Novolog) 0 unit SC ACHS [facility] Last Admin: 11/06/18 16:00 Dose: Not Given Insulin Aspart (Novolog) 14 unit SC AC [facility] Last Admin: 11/06/18 16:30 Dose: Not Given Insulin Glargine (Lantus) 50 unit SC HS [facility] Levetiracetam (Keppra) 500 mg PO DIAL [facility] Last Admin: 11/03/18 17:41 Dose: 500 mg Losartan Potassium (Cozaar) 50 mg PO DAILY [facility] Last Admin: 11/06/18 09:50 Dose: 50 mg Montelukast Sodium (Singulair) 10 mg PO DAILY [facility] Last Admin: 11/06/18 09:51 Dose: 10 mg Quetiapine Fumarate (Seroquel) 25 mg PO DAILY [facility] Last Admin: 10/28/18 10:44 Dose: 25 mg Rosuvastatin Calcium (Crestor) 5 mg PO [facility] Last Admin: 11/06/18 21:50 Dose: 5 mg Vitamin B Complex/Vit C/Folic Acid (Nephro-Marina) 1 tab PO 0800 [facility] Last Admin: 11/06/18 08:18 Dose: 1 tab - Labs Labs: 11/06/18 06:53 11/04/18 08:13 PT 11.0 SECONDS (9.7-12.2) 11/04/18 08:13 INR 1.0 11/04/18 08:13 APTT 36 SECONDS (21-34) H 11/04/18 08:13 - Constitutional Appears: Chronically Ill - Head Exam Head Exam: NORMOCEPHALIC - Eye Exam Eye Exam: PERRL Pupil Exam: NORMAL ACCOMODATION - ENT Exam ENT Exam: Normal Exam - Neck Exam Neck Exam: Normal Inspection - Respiratory Exam Respiratory Exam: Decreased Breath Sounds - Cardiovascular Exam Cardiovascular Exam: REGULAR RHYTHM - GI/Abdominal Exam GI & Abdominal Exam: Normal Bowel Sounds - Rectal Exam Rectal Exam: Deferred - Extremities Exam Extremities Exam: Tenderness - Back Exam Back Exam: NORMAL INSPECTION - Neurological Exam Neurological Exam: Awake - Psychiatric Exam Psychiatric exam: Depressed - Skin Skin Exam: Dry Assessment and Plan (1) ESRD (end stage renal disease) Status: Chronic (2) Lactic acidosis Status: Acute (3) Altered mental status Status: Acute (4) Arthralgia Status: Acute (5) Uncontrolled diabetes mellitus Status: Acute
--- NOTE | 2018-11-07 00:35 | PN ---
DATE: 11/06/2018 ENDO FOLLOWUP NOTE ROOM: 358 SUBJECTIVE: This is an 82-year-old female with recent uncontrolled type 2 insulin-requiring diabetes, now being followed closely for metabolic management. Her glycemic levels are fluctuating with higher numbers overnight, clearly quite insulin resistant with extremes of glycemic fluctuations from hypoglycemia to hyperglycemic accelerations as noted today. Her glucose values have ranged from 411 to 429 mg/dL last night and it is 401 to 349 today as noted. LABORATORY DATA: Her latest chemistry showed a BUN of 48, sodium 134, potassium 4.2, chloride 97, CO2 of 29, glucose 112, and creatinine 4.5. PLAN: So, at this time, we will continue the same basal and bolus insulin regimen at a modified dose of NovoLog given as 14 units t.i.d. before meals to start today as ordered. We will continue the basal insulin given as Lantus at 50 units subcu at bedtime daily to start tonight. We will titrate incrementally as indicated to optimize metabolic control. We will follow. Bella Gold MD
[2018-11-07] MEDS: (Novolog) Insulin Aspart, Recombinant 100 u/ml 10 ml vial SC SCH ×7 (07:53→22:14)
[2018-11-07] MEDS: Multivitamin Vitamin B Complex (Nephro-Vite) Tab PO SCH (08:49)
[2018-11-07 10:04] LABS: BASO # 0.1 K/uL (0.0-0.2); BASO % 0.8 % (0.0-2.0); EOS # 0.2 K/uL (0.0-0.7); HEMOGLOBIN 8.8 g/dL (11.0-16.0); LYMPH % 13.9 % (20.0-40.0); MEAN CELL VOLUME 85.4 fL (81.0-99.0); MEAN CORPUSCULAR HEMOGLOBIN 27.4 pg (27.0-31.0); MEAN PLATELET VOLUME 8.7 fL (7.2-11.7); MONO # 0.7 K/uL (0.0-0.8); MONO % 8.8 % (0.0-10.0); NEUT # 5.5 K/uL (1.8-7.0); NEUT % 73.5 % (50.0-75.0); RBC 3.22 Mil/uL (3.80-5.20); RED CELL DISTRIBUTION WIDTH 17.4 % (11.5-14.5); WHITE BLOOD COUNT 7.4 K/uL (4.8-10.8)
[2018-11-07] MEDS ORDERED: Ferric Sodium Gluconat Complex 62.5 mg/5 ml Vial IVPB ONE (10:48)
[2018-11-07 10:49] LABS: HEPATITIS B SURFACE AG Negative (NEGATIVE)
[2018-11-07 10:54] LABS: HEPATITIS B CORE AB NEGATIVE (NEGATIVE)
[2018-11-07] MEDS: EPOETIN ALFA 4,000 UNIT/ML ML Dialysis IV SCH (11:14)
[2018-11-07] MEDS: levETIRAcetam 100 mg/ml (5ml) Oral Syringe PO SCH (13:35)
--- NOTE | 2018-11-07 15:12 | CP.PCM.PN ---
Subjective - Date & Time of Evaluation Date of Evaluation: 11/07/18 Time of Evaluation: 14:00 - Subjective Subjective: SEEN ON RENAL F/U SEEN ON HD .. CATH IS WORKING WELL S/P AVF REVISION Objective - Vital Signs/Intake and Output Vital Signs (last 24 hours): Temp Pulse Resp BP Pulse Ox 97.7 F 94 H 16 153/71 H 98 11/07/18 11:45 11/07/18 11:45 11/07/18 11:45 11/07/18 13:40 11/07/18 11:45 Intake and Output: 11/07/18 11/07/18 06:59 18:59 Intake Total 80 Balance 80 - Medications Medications: Current Medications Acetaminophen (Tylenol 325mg Tab) 650 mg PO Q6 PRN PRN Reason: Pain, Mild (1-3) Last Admin: 11/07/18 13:38 Dose: 650 mg Aspirin (Aspirin Chewable) 81 mg PO DAILY [facility] Last Admin: 11/07/18 09:28 Dose: 81 mg Clopidogrel Bisulfate (Plavix) 75 mg PO DAILY [facility] Last Admin: 11/07/18 09:28 Dose: 75 mg Dextrose (Dextrose 50% Inj) 0 ml IV STAT PRN; Protocol PRN Reason: Hypoglycemia Protocol Last Admin: 11/01/18 16:43 Dose: 50 ml Dextrose (Glutose 15) 0 gm PO ONCE PRN; Protocol PRN Reason: Hypoglycemia Protocol Donepezil HCl (Aricept) 10 mg PO HS [facility] Last Admin: 11/06/18 21:50 Dose: 10 mg Enalapril Maleate (Vasotec) 10 mg PO DAILY [facility] Last Admin: 11/07/18 13:40 Dose: 10 mg Epoetin Gerson ([facility]) [facility] Last Admin: 11/07/18 11:14 Dose: 4,000 unit Famotidine (Pepcid) 20 mg PO DAILY [facility] Last Admin: 11/07/18 09:28 Dose: 20 mg Glucagon (Glucagen Diagnostic Kit) 0 mg IM STAT PRN; Protocol PRN Reason: Hypoglycemia Protocol Heparin Sodium (Porcine) (Heparin) 4,600 units IVP MWF [facility] Last Admin: 11/07/18 11:42 Dose: 4,600 units Hydralazine HCl (Apresoline) 25 mg PO TID [facility] Last Admin: 11/01/18 13:27 Dose: 25 mg Insulin Aspart (Novolog) 0 unit SC ACHS [facility] Last Admin: 11/07/18 12:11 Dose: Not Given Insulin Aspart (Novolog) 14 unit SC AC [facility] Last Admin: 11/07/18 12:12 Dose: Not Given Insulin Glargine (Lantus) 50 unit SC HS [facility] Levetiracetam (Keppra) 500 mg PO DIAL [facility] Last Admin: 11/07/18 13:35 Dose: 500 mg Losartan Potassium (Cozaar) 50 mg PO DAILY [facility] Last Admin: 11/07/18 13:35 Dose: 50 mg Montelukast Sodium (Singulair) 10 mg PO DAILY [facility] Last Admin: 11/07/18 09:28 Dose: 10 mg Quetiapine Fumarate (Seroquel) 25 mg PO DAILY [facility] Last Admin: 10/28/18 10:44 Dose: 25 mg Rosuvastatin Calcium (Crestor) 5 mg PO HS [facility] Last Admin: 11/06/18 21:50 Dose: 5 mg Vitamin B Complex/Vit C/Folic Acid (Nephro-Marina) 1 tab PO 0800 [facility] Last Admin: 11/07/18 08:49 Dose: 1 tab - Labs Labs: 11/07/18 09:54 11/04/18 08:13 PT 11.0 SECONDS (9.7-12.2) 11/04/18 08:13 INR 1.0 11/04/18 08:13 APTT 36 SECONDS (21-34) H 11/04/18 08:13 Assessment and Plan - Assessment and Plan (Free Text) Assessment: ESRD ON HD M W F S/P PERMA CATH S/P REVIVION OF AVF MMP P: C/O CURRENT CARE C/O PRESENT MANAGEMENT
[2018-11-07] MEDS: (Lantus) Insulin Glargine, Recombinant SC SCH (22:13)
--- NOTE | 2018-11-07 22:18 | CP.PCM.PN ---
Subjective - Date & Time of Evaluation Date of Evaluation: 11/07/18 Time of Evaluation: 12:55 - Subjective Subjective: patient still seems very fatigued. Lab studies revea a normal white count, hemoglobin 8.8, BUN 45 and glucose 112. She doesn't is working well with no occlusion. Patient still has shoulder pain and stiffness. Objective - Vital Signs/Intake and Output Vital Signs (last 24 hours): Temp Pulse Resp BP Pulse Ox 98.1 F 102 H 20 131/66 99 11/07/18 16:56 11/07/18 16:56 11/07/18 16:56 11/07/18 16:56 11/07/18 16:56 - Medications Medications: Current Medications Acetaminophen (Tylenol 325mg Tab) 650 mg PO Q6 PRN PRN Reason: Pain, Mild (1-3) Last Admin: 11/07/18 13:38 Dose: 650 mg Aspirin (Aspirin Chewable) 81 mg PO DAILY [facility] Last Admin: 11/07/18 09:28 Dose: 81 mg Clopidogrel Bisulfate (Plavix) 75 mg PO DAILY [facility] Last Admin: 11/07/18 09:28 Dose: 75 mg Dextrose (Dextrose 50% Inj) 0 ml IV STAT PRN; Protocol PRN Reason: Hypoglycemia Protocol Last Admin: 11/01/18 16:43 Dose: 50 ml Dextrose (Glutose 15) 0 gm PO ONCE PRN; Protocol PRN Reason: Hypoglycemia Protocol Donepezil HCl (Aricept) 10 mg PO HS [facility] Last Admin: 11/07/18 22:00 Dose: 10 mg Enalapril Maleate (Vasotec) 10 mg PO DAILY [facility] Last Admin: 11/07/18 13:40 Dose: 10 mg Epoetin Gerson (Procrit) 4,000 unit IV [facility] Last Admin: 11/07/18 11:14 Dose: 4,000 unit Famotidine (Pepcid) 20 mg PO DAILY [facility] Last Admin: 11/07/18 09:28 Dose: 20 mg Glucagon (Glucagen Diagnostic Kit) 0 mg IM STAT PRN; Protocol PRN Reason: Hypoglycemia Protocol Heparin Sodium (Porcine) (Heparin) 4,600 units IVP MWF [facility] Last Admin: 11/07/18 11:42 Dose: 4,600 units Hydralazine HCl (Apresoline) 25 mg PO TID [facility] Last Admin: 11/01/18 13:27 Dose: 25 mg Insulin Aspart (Novolog) 0 unit SC ACHS [facility] Last Admin: 11/07/18 22:14 Dose: Not Given Insulin Aspart (Novolog) 14 unit SC AC [facility] Last Admin: 11/07/18 17:35 Dose: Not Given Insulin Glargine (Lantus) 50 unit SC HS [facility] Last Admin: 11/07/18 22:13 Dose: Not Given Levetiracetam (Keppra) 500 mg PO DIAL [facility] Last Admin: 11/07/18 13:35 Dose: 500 mg Losartan Potassium (Cozaar) 50 mg PO DAILY [facility] Last Admin: 11/07/18 13:35 Dose: 50 mg Montelukast Sodium (Singulair) 10 mg PO DAILY [facility] Last Admin: 11/07/18 09:28 Dose: 10 mg Quetiapine Fumarate (Seroquel) 25 mg PO DAILY [facility] Last Admin: 10/28/18 10:44 Dose: 25 mg Rosuvastatin Calcium (Crestor) 5 mg PO [facility] Last Admin: 11/07/18 22:00 Dose: 5 mg Vitamin B Complex/Vit C/Folic Acid (Nephro-Marina) 1 tab PO 0800 [facility] Last Admin: 11/07/18 08:49 Dose: 1 tab - Labs Labs: 11/07/18 09:54 11/04/18 08:13 PT 11.0 SECONDS (9.7-12.2) 11/04/18 08:13 INR 1.0 11/04/18 08:13 APTT 36 SECONDS (21-34) H 11/04/18 08:13 - Constitutional Appears: Chronically Ill - Head Exam Head Exam: NORMOCEPHALIC - Eye Exam Eye Exam: Normal appearance Pupil Exam: NORMAL ACCOMODATION - ENT Exam ENT Exam: Normal Exam - Neck Exam Neck Exam: Normal Inspection - Respiratory Exam Respiratory Exam: Decreased Breath Sounds - Cardiovascular Exam Cardiovascular Exam: REGULAR RHYTHM - GI/Abdominal Exam GI & Abdominal Exam: Normal Bowel Sounds - Rectal Exam Rectal Exam: Deferred - Exam External exam: NORMAL EXTERNAL EXAM - Extremities Exam Extremities Exam: Tenderness - Back Exam Back Exam: NORMAL INSPECTION - Neurological Exam Neurological Exam: Awake - Psychiatric Exam Psychiatric exam: Depressed - Skin Skin Exam: Dry Assessment and Plan (1) ESRD (end stage renal disease) Status: Chronic (2) Lactic acidosis Status: Acute (3) Altered mental status Status: Acute (4) Arthralgia Status: Acute (5) Uncontrolled diabetes mellitus Status: Acute
--- NOTE | 2018-11-08 03:07 | PN ---
DATE: 11/07/2018 ENDOCRINOLOGY FOLLOWUP NOTE LOCATION: Room 358. This is an 82-year-old female with recent uncontrolled type 2 insulin-requiring diabetes, now being followed closely for metabolic management. Her glycemic levels are fluctuating with variability of her oral intake as noted, and the glucose values today have ranged from 87 to 153 and 182 mg/dL. Her latest chemistry showed a BUN of 48, sodium 134, potassium 4.2, chloride 97, CO2 of 29, glucose 112, creatinine 4.5. So at this time, we will continue to modify basal and bolus insulin regimen to allow for dose equilibration and keep her on the Lantus given as 50 units subcu at bedtime daily as given. We will continue the NovoLog given as 14 units subcu t.i.d. before meals as ordered. We will titrate incrementally as indicated to optimize metabolic control. We will follow. Bella Gold MD
[2018-11-08] MEDS: (Novolog) Insulin Aspart, Recombinant 100 u/ml 10 ml vial SC SCH ×7 (08:17→21:37)
[2018-11-08] MEDS: Multivitamin Vitamin B Complex (Nephro-Vite) Tab PO SCH (08:18)
--- NOTE | 2018-11-08 19:05 | CP.PCM.PN ---
Subjective - Date & Time of Evaluation Date of Evaluation: 11/08/18 Time of Evaluation: 15:50 - Subjective Subjective: patient very fatigued and at times confuse. Fasting blood frey was 273 toda. Patient still comp of right forearm pain. Awaiting neurological reevaluation and better control o blood sugar. Objective - Vital Signs/Intake and Output Vital Signs (last 24 hours): Temp Pulse Resp BP Pulse Ox 98.2 F 92 H 20 118/60 98 11/08/18 08:35 11/08/18 08:35 11/08/18 08:35 11/08/18 09:39 11/08/18 08:35 Intake and Output: 11/08/18 11/09/18 18:59 06:59 Intake Total 340 Balance 340 - Medications Medications: Current Medications Acetaminophen (Tylenol 325mg Tab) 650 mg PO Q6 PRN PRN Reason: Pain, Mild (1-3) Last Admin: 11/08/18 10:37 Dose: 650 mg Aspirin (Aspirin Chewable) 81 mg PO DAILY [facility] Last Admin: 11/08/18 09:40 Dose: 81 mg Clopidogrel Bisulfate (Plavix) 75 mg PO DAILY [facility] Last Admin: 11/08/18 09:40 Dose: 75 mg Dextrose (Dextrose 50% Inj) 0 ml IV STAT PRN; Protocol PRN Reason: Hypoglycemia Protocol Last Admin: 11/01/18 16:43 Dose: 50 ml Dextrose (Glutose 15) 0 gm PO ONCE PRN; Protocol PRN Reason: Hypoglycemia Protocol Donepezil HCl (Aricept) 10 mg PO HS [facility] Last Admin: 11/07/18 22:00 Dose: 10 mg Enalapril Maleate (Vasotec) 10 mg PO DAILY [facility] Last Admin: 11/08/18 09:39 Dose: 10 mg Epoetin Gerson (Procrit) 4,000 unit IV MWF [facility] Last Admin: 11/07/18 11:14 Dose: 4,000 unit Famotidine (Pepcid) 20 mg PO DAILY [facility] Last Admin: 11/08/18 10:36 Dose: 20 mg Glucagon (Glucagen Diagnostic Kit) 0 mg IM STAT PRN; Protocol PRN Reason: Hypoglycemia Protocol Hydralazine HCl (Apresoline) 25 mg PO TID [facility] Last Admin: 11/01/18 13:27 Dose: 25 mg Insulin Aspart (Novolog) 0 unit SC ACHS [facility] Last Admin: 11/08/18 17:42 Dose: Not Given Insulin Aspart (Novolog) 14 unit SC AC [facility] Last Admin: 11/08/18 17:43 Dose: Not Given Insulin Glargine (Lantus) 50 unit SC HS [facility] Last Admin: 11/07/18 22:13 Dose: Not Given Levetiracetam (Keppra) 500 mg PO DIAL [facility] Last Admin: 11/07/18 13:35 Dose: 500 mg Losartan Potassium (Cozaar) 50 mg PO DAILY [facility] Last Admin: 11/08/18 09:40 Dose: Not Given Montelukast Sodium (Singulair) 10 mg PO DAILY [facility] Last Admin: 11/08/18 09:40 Dose: 10 mg Quetiapine Fumarate (Seroquel) 25 mg PO DAILY [facility] Last Admin: 10/28/18 10:44 Dose: 25 mg Rosuvastatin Calcium (Crestor) 5 mg PO [facility] Last Admin: 11/07/18 22:00 Dose: 5 mg Vitamin B Complex/Vit C/Folic Acid (Nephro-Marina) 1 tab PO 0800 [facility] Last Admin: 11/08/18 08:18 Dose: 1 tab - Labs Labs: 11/07/18 09:54 11/04/18 08:13 PT 11.0 SECONDS (9.7-12.2) 11/04/18 08:13 INR 1.0 11/04/18 08:13 APTT 36 SECONDS (21-34) H 11/04/18 08:13 - Constitutional Appears: Chronically Ill - Head Exam Head Exam: NORMOCEPHALIC - Eye Exam Eye Exam: Normal appearance Pupil Exam: NORMAL ACCOMODATION - ENT Exam ENT Exam: Normal Oropharynx - Neck Exam Neck Exam: Normal Inspection - Respiratory Exam Respiratory Exam: Decreased Breath Sounds - Cardiovascular Exam Cardiovascular Exam: REGULAR RHYTHM - GI/Abdominal Exam GI & Abdominal Exam: Normal Bowel Sounds - Rectal Exam Rectal Exam: Deferred - Exam External exam: NORMAL EXTERNAL EXAM - Extremities Exam Extremities Exam: Tenderness - Back Exam Back Exam: NORMAL INSPECTION - Neurological Exam Neurological Exam: Awake - Psychiatric Exam Psychiatric exam: Depressed - Skin Skin Exam: Dry Assessment and Plan (1) ESRD (end stage renal disease) Status: Chronic (2) Lactic acidosis Status: Acute (3) Altered mental status Status: Acute (4) Arthralgia Status: Acute (5) Uncontrolled diabetes mellitus Status: Acute
--- NOTE | 2018-11-08 19:14 | CP.PCM.PN ---
Subjective - Date & Time of Evaluation Date of Evaluation: 11/08/18 Time of Evaluation: 19:12 - Subjective Subjective: SEEN ON RENAL F/U had hd yesterdayCATH IS WORKING WELL S/P AVF REVISION some confusion Dr Asif bryson on case next hd mon stable for same cont rx and support. Objective - Vital Signs/Intake and Output Vital Signs (last 24 hours): Temp Pulse Resp BP Pulse Ox 98.2 F 92 H 20 118/60 98 11/08/18 08:35 11/08/18 08:35 11/08/18 08:35 11/08/18 09:39 11/08/18 08:35 Intake and Output: 11/08/18 11/09/18 18:59 06:59 Intake Total 340 Balance 340 - Medications Medications: Current Medications Acetaminophen (Tylenol 325mg Tab) 650 mg PO Q6 PRN PRN Reason: Pain, Mild (1-3) Last Admin: 11/08/18 10:37 Dose: 650 mg Aspirin (Aspirin Chewable) 81 mg PO DAILY [facility] Last Admin: 11/08/18 09:40 Dose: 81 mg Clopidogrel Bisulfate (Plavix) 75 mg PO DAILY [facility] Last Admin: 11/08/18 09:40 Dose: 75 mg Dextrose (Dextrose 50% Inj) 0 ml IV STAT PRN; Protocol PRN Reason: Hypoglycemia Protocol Last Admin: 11/01/18 16:43 Dose: 50 ml Dextrose (Glutose 15) 0 gm PO ONCE PRN; Protocol PRN Reason: Hypoglycemia Protocol Donepezil HCl (Aricept) 10 mg PO HS [facility] Last Admin: 11/07/18 22:00 Dose: 10 mg Enalapril Maleate (Vasotec) 10 mg PO DAILY [facility] Last Admin: 11/08/18 09:39 Dose: 10 mg Epoetin Gerson (Procrit) 4,000 unit IV MWF [facility] Last Admin: 11/07/18 11:14 Dose: 4,000 unit Famotidine (Pepcid) 20 mg PO DAILY [facility] Last Admin: 11/08/18 10:36 Dose: 20 mg Glucagon (Glucagen Diagnostic Kit) 0 mg IM STAT PRN; Protocol PRN Reason: Hypoglycemia Protocol Hydralazine HCl (Apresoline) 25 mg PO TID [facility] Last Admin: 11/01/18 13:27 Dose: 25 mg Insulin Aspart (Novolog) 0 unit SC ACHS [facility] Last Admin: 11/08/18 17:42 Dose: Not Given Insulin Aspart (Novolog) 14 unit SC AC [facility] Last Admin: 11/08/18 17:43 Dose: Not Given Insulin Glargine (Lantus) 50 unit SC HS [facility] Last Admin: 11/07/18 22:13 Dose: Not Given Levetiracetam (Keppra) 500 mg PO DIAL [facility] Last Admin: 11/07/18 13:35 Dose: 500 mg Losartan Potassium (Cozaar) 50 mg PO DAILY [facility] Last Admin: 11/08/18 09:40 Dose: Not Given Montelukast Sodium (Singulair) 10 mg PO DAILY [facility] Last Admin: 11/08/18 09:40 Dose: 10 mg Quetiapine Fumarate (Seroquel) 25 mg PO DAILY [facility] Last Admin: 10/28/18 10:44 Dose: 25 mg Rosuvastatin Calcium (Crestor) 5 mg PO [facility] Last Admin: 11/07/18 22:00 Dose: 5 mg Vitamin B Complex/Vit C/Folic Acid (Nephro-Marina) 1 tab PO 0800 [facility] Last Admin: 11/08/18 08:18 Dose: 1 tab - Labs Labs: 11/07/18 09:54 11/04/18 08:13 PT 11.0 SECONDS (9.7-12.2) 11/04/18 08:13 INR 1.0 11/04/18 08:13 APTT 36 SECONDS (21-34) H 11/04/18 08:13 - Constitutional Appears: Non-toxic, Confused - Head Exam Head Exam: NORMAL INSPECTION - Eye Exam Eye Exam: Normal appearance - ENT Exam ENT Exam: Mucous Membranes Moist - Neck Exam Neck Exam: Normal Inspection - Respiratory Exam Respiratory Exam: NORMAL BREATHING PATTERN - Cardiovascular Exam Cardiovascular Exam: REGULAR RHYTHM - GI/Abdominal Exam GI & Abdominal Exam: Soft - Extremities Exam Extremities Exam: Normal Inspection - Neurological Exam Neurological Exam: Awake - Psychiatric Exam Psychiatric exam: Anxious - Skin Skin Exam: Dry, Warm
[2018-11-08] MEDS: (Lantus) Insulin Glargine, Recombinant SC SCH (21:33)
--- NOTE | 2018-11-09 00:44 | PN ---
DATE: 11/08/2018 ENDOCRINOLOGY FOLLOWUP NOTE LOCATION: Room 358. SUBJECTIVE: This is an 82-year-old female with recent uncontrolled type 2 insulin-requiring diabetes now being followed closely for metabolic management. Her glycemic levels are fluctuating but improved as noted today with glucose values ranging from 123 to 229 and 270 mg/dL. It was 273 at bedtime last night. LABORATORY DATA: Her chemistry showed a BUN of 81, sodium 133, potassium 3.9, chloride 98, CO2 of 24, glucose 90, creatinine 6.3. PLAN: So, at this time, we will continue the same basal and bolus insulin regimen to allow for dose equilibration especially with the variability of her oral intake as noted. We will continue the NovoLog given as 14 units t.i.d. before meals as ordered. We will continue her basal insulin given as Lantus at 50 units subcutaneously at bedtime daily as given. We will titrate incrementally as indicated to optimize metabolic control. We will follow. Bella Gold MD
[2018-11-09] MEDS: (Novolog) Insulin Aspart, Recombinant 100 u/ml 10 ml vial SC SCH ×7 (07:39→21:33)
[2018-11-09] MEDS: Multivitamin Vitamin B Complex (Nephro-Vite) Tab PO SCH (07:48)
--- NOTE | 2018-11-09 13:36 | PN ---
DATE: 11/09/2018 LOCATION: 358. SUBJECTIVE: This is an 82-year-old female with recent uncontrolled type 2 insulin-requiring diabetes, now being followed closely for metabolic management. Her glycemic levels are fluctuating but improved and the glucose values have ranged from 251 to 293 mg/dL. However, overnight and early this morning, her glucose levels dropped to 32 mg/dL. No overt hyperadrenergic manifestations were noted otherwise. PLAN: So, for now, we will modify once again her basal insulin and lower the Lantus to 40 units subcu at bedtime daily as given. We will continue her prandial insulin with NovoLog given as 14 units t.i.d. before meals as ordered. We will obtain serial chemistries and supplement accordingly as needed. We will follow. Bella Gold MD
[2018-11-09] MEDS ORDERED: (Lantus) Insulin Glargine, Recombinant SC SCH (22:00)
[2018-11-10] MEDS: (Novolog) Insulin Aspart, Recombinant 100 u/ml 10 ml vial SC SCH ×9 (08:30→21:44)
[2018-11-10] MEDS: Multivitamin Vitamin B Complex (Nephro-Vite) Tab PO SCH (08:56)
[2018-11-10 10:44] LABS: CALCIUM 9.1 mg/dl (8.6-10.4)
[2018-11-10] MEDS: EPOETIN ALFA 4,000 UNIT/ML ML Dialysis IV SCH (11:28)
[2018-11-10] MEDS: levETIRAcetam 100 mg/ml (5ml) Oral Syringe PO SCH (13:47)
[2018-11-10 16:49] VITALS: RESP 20
[2018-11-10] MEDS ORDERED: (Lantus) Insulin Glargine, Recombinant SC SCH (22:00)
--- NOTE | 2018-11-10 22:26 | CP.PCM.PN ---
Subjective - Date & Time of Evaluation Date of Evaluation: 11/10/18 Time of Evaluation: 15:00 - Subjective Subjective: SEEN ON RENAL F/U SEEN ON HD C/O LOCAL PAIN ON R ARM CATH IS FUNCTIONING WELL ' Objective - Vital Signs/Intake and Output Vital Signs (last 24 hours): Temp Pulse Resp BP Pulse Ox 98.6 F 85 20 113/57 L 99 11/10/18 16:00 11/10/18 16:00 11/10/18 16:00 11/10/18 16:00 11/10/18 16:00 Intake and Output: 11/10/18 11/11/18 18:59 06:59 Intake Total 350 Balance 350 - Medications Medications: Current Medications Acetaminophen (Tylenol 325mg Tab) 650 mg PO Q6 PRN PRN Reason: Pain, Mild (1-3) Last Admin: 11/08/18 10:37 Dose: 650 mg Aspirin (Aspirin Chewable) 81 mg PO DAILY [facility] Last Admin: 11/10/18 09:10 Dose: 81 mg Clopidogrel Bisulfate (Plavix) 75 mg PO DAILY [facility] Last Admin: 11/10/18 09:10 Dose: 75 mg Dextrose (Dextrose 50% Inj) 0 ml IV STAT PRN; Protocol PRN Reason: Hypoglycemia Protocol Last Admin: 11/01/18 16:43 Dose: 50 ml Dextrose (Glutose 15) 0 gm PO ONCE PRN; Protocol PRN Reason: Hypoglycemia Protocol Donepezil HCl (Aricept) 10 mg PO HS [facility] Last Admin: 11/10/18 21:43 Dose: 10 mg Enalapril Maleate (Vasotec) 10 mg PO DAILY [facility] Last Admin: 11/10/18 10:35 Dose: Not Given Epoetin Gerson (Procrit) 4,000 unit IV MWF [facility] Last Admin: 11/10/18 11:28 Dose: 4,000 unit Famotidine (Pepcid) 20 mg PO DAILY [facility] Last Admin: 11/10/18 09:10 Dose: 20 mg Glucagon (Glucagen Diagnostic Kit) 0 mg IM STAT PRN; Protocol PRN Reason: Hypoglycemia Protocol Heparin Sodium (Porcine) (Heparin) 4,600 units IVP TTS [facility] Last Admin: 11/10/18 12:20 Dose: 4,600 units Hydralazine HCl (Apresoline) 25 mg PO TID [facility] Last Admin: 11/01/18 13:27 Dose: 25 mg Insulin Aspart (Novolog) 0 unit SC ACHS [facility] Last Admin: 11/10/18 21:44 Dose: Not Given Insulin Aspart (Novolog) 10 unit SC AC [facility] Last Admin: 11/10/18 17:57 Dose: 10 units Insulin Glargine (Lantus) 44 unit SC HS [facility] Last Admin: 11/10/18 21:44 Dose: Not Given Levetiracetam (Keppra) 500 mg PO DIAL [facility] Last Admin: 11/10/18 13:47 Dose: 500 mg Losartan Potassium (Cozaar) 50 mg PO DAILY [facility] Last Admin: 11/10/18 10:58 Dose: Not Given Montelukast Sodium (Singulair) 10 mg PO DAILY [facility] Last Admin: 11/10/18 09:09 Dose: 10 mg Quetiapine Fumarate (Seroquel) 25 mg PO DAILY [facility] Last Admin: 10/28/18 10:44 Dose: 25 mg Rosuvastatin Calcium (Crestor) 5 mg PO [facility] Last Admin: 11/10/18 21:43 Dose: 5 mg Vitamin B Complex/Vit C/Folic Acid (Nephro-Marina) 1 tab PO 0800 [facility] Last Admin: 11/10/18 08:56 Dose: 1 tab - Labs Labs: 11/07/18 09:54 11/10/18 10:17 PT 11.0 SECONDS (9.7-12.2) 11/04/18 08:13 INR 1.0 11/04/18 08:13 APTT 36 SECONDS (21-34) H 11/04/18 08:13 Assessment and Plan - Assessment and Plan (Free Text) Assessment: C/O PRESENT CARE C/O CURRENT MEDS
--- NOTE | 2018-11-10 23:21 | CP.PCM.PN ---
Subjective - Date & Time of Evaluation Date of Evaluation: 11/10/18 Time of Evaluation: 16:50 - Subjective Subjective: patient blood sugar still not under good control. She is still haviing periods of confusion. She complains of right forearm pain. Patient's daughter with the assistance creative services producer is attempting to arrange for dialysis [facility] in [place]. The plan is for the patient to live in [place] with her daughter. Objective - Vital Signs/Intake and Output Vital Signs (last 24 hours): Temp Pulse Resp BP Pulse Ox 98.6 F 85 20 113/57 L 99 11/10/18 16:00 11/10/18 16:00 11/10/18 16:00 11/10/18 16:00 11/10/18 16:00 Intake and Output: 11/10/18 11/11/18 18:59 06:59 Intake Total 350 Balance 350 - Medications Medications: Current Medications Acetaminophen (Tylenol 325mg Tab) 650 mg PO Q6 PRN PRN Reason: Pain, Mild (1-3) Last Admin: 11/08/18 10:37 Dose: 650 mg Aspirin (Aspirin Chewable) 81 mg PO DAILY [facility] Last Admin: 11/10/18 09:10 Dose: 81 mg Clopidogrel Bisulfate (Plavix) 75 mg PO DAILY [facility] Last Admin: 11/10/18 09:10 Dose: 75 mg Dextrose (Dextrose 50% Inj) 0 ml IV STAT PRN; Protocol PRN Reason: Hypoglycemia Protocol Last Admin: 11/01/18 16:43 Dose: 50 ml Dextrose (Glutose 15) 0 gm PO ONCE PRN; Protocol PRN Reason: Hypoglycemia Protocol Donepezil HCl (Aricept) 10 mg PO HS [facility] Last Admin: 11/10/18 21:43 Dose: 10 mg Enalapril Maleate (Vasotec) 10 mg PO DAILY [facility] Last Admin: 11/10/18 10:35 Dose: Not Given Epoetin Gerson (Procrit) 4,000 unit IV MWF [facility] Last Admin: 11/10/18 11:28 Dose: 4,000 unit Famotidine (Pepcid) 20 mg PO DAILY [facility] Last Admin: 11/10/18 09:10 Dose: 20 mg Glucagon (Glucagen Diagnostic Kit) 0 mg IM STAT PRN; Protocol PRN Reason: Hypoglycemia Protocol Heparin Sodium (Porcine) (Heparin) 4,600 units IVP TTS [facility] Last Admin: 11/10/18 12:20 Dose: 4,600 units Hydralazine HCl (Apresoline) 25 mg PO TID [facility] Last Admin: 11/01/18 13:27 Dose: 25 mg Insulin Aspart (Novolog) 0 unit SC ACHS [facility] Last Admin: 11/10/18 21:44 Dose: Not Given Insulin Aspart (Novolog) 10 unit SC AC [facility] Last Admin: 11/10/18 17:57 Dose: 10 units Insulin Glargine (Lantus) 44 unit SC HS [facility] Last Admin: 11/10/18 21:44 Dose: Not Given Levetiracetam (Keppra) 500 mg PO DIAL [facility] Last Admin: 11/10/18 13:47 Dose: 500 mg Losartan Potassium (Cozaar) 50 mg PO DAILY [facility] Last Admin: 11/10/18 10:58 Dose: Not Given Montelukast Sodium (Singulair) 10 mg PO DAILY [facility] Last Admin: 11/10/18 09:09 Dose: 10 mg Quetiapine Fumarate (Seroquel) 25 mg PO DAILY [facility] Last Admin: 10/28/18 10:44 Dose: 25 mg Rosuvastatin Calcium (Crestor) 5 mg PO HS [facility] Last Admin: 11/10/18 21:43 Dose: 5 mg Vitamin B Complex/Vit C/Folic Acid (Nephro-Marina) 1 tab PO 0800 [facility] Last Admin: 11/10/18 08:56 Dose: 1 tab - Labs Labs: 11/07/18 09:54 11/10/18 10:17 PT 11.0 SECONDS (9.7-12.2) 11/04/18 08:13 INR 1.0 11/04/18 08:13 APTT 36 SECONDS (21-34) H 11/04/18 08:13 - Constitutional Appears: Chronically Ill - Head Exam Head Exam: NORMOCEPHALIC - Eye Exam Eye Exam: Normal appearance Pupil Exam: NORMAL ACCOMODATION - ENT Exam ENT Exam: Normal Oropharynx - Neck Exam Neck Exam: Normal Inspection - Respiratory Exam Respiratory Exam: Decreased Breath Sounds - Cardiovascular Exam Cardiovascular Exam: REGULAR RHYTHM - GI/Abdominal Exam GI & Abdominal Exam: Normal Bowel Sounds - Rectal Exam Rectal Exam: Deferred - Exam Exam: NORMAL INSPECTION - Extremities Exam Extremities Exam: Tenderness - Back Exam Back Exam: NORMAL INSPECTION - Neurological Exam Neurological Exam: Altered - Psychiatric Exam Psychiatric exam: Depressed - Skin Skin Exam: Dry Assessment and Plan (1) ESRD (end stage renal disease) Status: Chronic (2) Lactic acidosis Status: Acute (3) Altered mental status Status: Acute (4) Arthralgia Status: Acute (5) Uncontrolled diabetes mellitus Status: Acute
--- NOTE | 2018-11-11 01:30 | PN ---
DATE: 11/10/2018 LOCATION: Room 364. SUBJECTIVE: This is an 82-year-old female with recent uncontrolled type 2 insulin-requiring diabetes, now being followed closely for metabolic management. Her glycemic levels are fluctuating, but improved as today's glucose values have ranged from 174 to 203 and 320 mg/dL. Her bedtime glucose was 244-301 mg/dL. Her chemistries showed BUN of 64, sodium 129, potassium 4.6, chloride 97, CO2 of 22, glucose 331 and creatinine 5.6. PLAN: So at this time, we will modify once again her basal and bolus insulin regimen and change to Novolog to 10 units t.i.d. before meals to start today as ordered. We will also modify her basal insulin with Lantus to be given as 44 units subcu at bedtime daily to start tonight. We will continue the low dose correction scale using Novolog insulin as given. We will obtain serial chemistries and supplement accordingly as needed. We will follow. Bella Gold MD
[2018-11-11 07:29] VITALS: TEMP 98.1
[2018-11-11] MEDS: (Novolog) Insulin Aspart, Recombinant 100 u/ml 10 ml vial SC SCH ×5 (08:16→18:06)
[2018-11-11] MEDS: Multivitamin Vitamin B Complex (Nephro-Vite) Tab PO SCH (08:16)
[2018-11-11 15:32] VITALS: BP 132/78; PULSE 68; O2SAT 98
--- NOTE | 2018-11-11 17:29 | CP.PCM.PN ---
Subjective - Date & Time of Evaluation Date of Evaluation: 11/11/18 Time of Evaluation: 15:00 - Subjective Subjective: SEEN ON RENAL F/U ON HD MW F Objective - Vital Signs/Intake and Output Vital Signs (last 24 hours): Temp Pulse Resp BP Pulse Ox 98.1 F 68 20 132/78 98 11/11/18 15:30 11/11/18 15:30 11/11/18 15:30 11/11/18 15:30 11/11/18 15:30 Intake and Output: 11/11/18 11/11/18 06:59 18:59 Intake Total 500 240 Balance 500 240 - Medications Medications: Current Medications Acetaminophen (Tylenol 325mg Tab) 650 mg PO Q6 PRN PRN Reason: Pain, Mild (1-3) Last Admin: 11/11/18 11:40 Dose: 650 mg Aspirin (Aspirin Chewable) 81 mg PO DAILY [facility] Last Admin: 11/11/18 10:00 Dose: 81 mg Clopidogrel Bisulfate (Plavix) 75 mg PO DAILY [facility] Last Admin: 11/11/18 10:00 Dose: 75 mg Dextrose (Dextrose 50% Inj) 0 ml IV STAT PRN; Protocol PRN Reason: Hypoglycemia Protocol Last Admin: 11/01/18 16:43 Dose: 50 ml Dextrose (Glutose 15) 0 gm PO ONCE PRN; Protocol PRN Reason: Hypoglycemia Protocol Donepezil HCl (Aricept) 10 mg PO HS [facility] Last Admin: 11/10/18 21:43 Dose: 10 mg Enalapril Maleate (Vasotec) 10 mg PO DAILY [facility] Last Admin: 11/11/18 09:59 Dose: 10 mg Epoetin Gerson (Procrit) 4,000 unit IV MWF [facility] Last Admin: 11/10/18 11:28 Dose: 4,000 unit Famotidine (Pepcid) 20 mg PO DAILY [facility] Last Admin: 11/11/18 10:00 Dose: 20 mg Glucagon (Glucagen Diagnostic Kit) 0 mg IM STAT PRN; Protocol PRN Reason: Hypoglycemia Protocol Heparin Sodium (Porcine) (Heparin) 4,600 units IVP TTS [facility] Last Admin: 11/11/18 10:03 Dose: Not Given Hydralazine HCl (Apresoline) 25 mg PO TID [facility] Last Admin: 11/01/18 13:27 Dose: 25 mg Insulin Aspart (Novolog) 0 unit SC ACHS [facility] Last Admin: 11/11/18 12:30 Dose: 3 units Insulin Aspart (Novolog) 10 unit SC AC [facility] Last Admin: 11/11/18 12:31 Dose: 10 units Insulin Glargine (Lantus) 44 unit SC HS [facility] Last Admin: 11/10/18 21:44 Dose: Not Given Levetiracetam (Keppra) 500 mg PO DIAL [facility] Last Admin: 11/10/18 13:47 Dose: 500 mg Losartan Potassium (Cozaar) 50 mg PO DAILY [facility] Last Admin: 11/11/18 10:00 Dose: 50 mg Montelukast Sodium (Singulair) 10 mg PO DAILY [facility] Last Admin: 11/11/18 10:00 Dose: 10 mg Quetiapine Fumarate (Seroquel) 25 mg PO DAILY [facility] Last Admin: 10/28/18 10:44 Dose: 25 mg Rosuvastatin Calcium (Crestor) 5 mg PO HS [facility] Last Admin: 11/10/18 21:43 Dose: 5 mg Vitamin B Complex/Vit C/Folic Acid (Nephro-Marina) 1 tab PO 0800 [facility] Last Admin: 11/11/18 08:16 Dose: 1 tab - Labs Labs: 11/07/18 09:54 11/10/18 10:17 PT 11.0 SECONDS (9.7-12.2) 11/04/18 08:13 INR 1.0 11/04/18 08:13 APTT 36 SECONDS (21-34) H 11/04/18 08:13 Assessment and Plan - Assessment and Plan (Free Text) Assessment: ESRD .. C/O CURRENT HD MMP P : C/O PRESENT CARE ENDO ON CASE FOR HYPERGLYCEMIA
--- NOTE | 2018-11-11 17:50 | CP.PCM.PN ---
Subjective - Date & Time of Evaluation Date of Evaluation: 11/11/18 Time of Evaluation: 11:00 - Subjective Subjective: alert, awake, no sob or chest pains, NAD. Objective - Vital Signs/Intake and Output Vital Signs (last 24 hours): Temp Pulse Resp BP Pulse Ox 98.1 F 68 20 132/78 98 11/11/18 15:30 11/11/18 15:30 11/11/18 15:30 11/11/18 15:30 11/11/18 15:30 Intake and Output: 11/11/18 11/11/18 06:59 18:59 Intake Total 500 240 Balance 500 240 - Medications Medications: Current Medications Acetaminophen (Tylenol 325mg Tab) 650 mg PO Q6 PRN PRN Reason: Pain, Mild (1-3) Last Admin: 11/11/18 11:40 Dose: 650 mg Aspirin (Aspirin Chewable) 81 mg PO DAILY [facility] Last Admin: 11/11/18 10:00 Dose: 81 mg Clopidogrel Bisulfate (Plavix) 75 mg PO DAILY [facility] Last Admin: 11/11/18 10:00 Dose: 75 mg Dextrose (Dextrose 50% Inj) 0 ml IV STAT PRN; Protocol PRN Reason: Hypoglycemia Protocol Last Admin: 11/01/18 16:43 Dose: 50 ml Dextrose (Glutose 15) 0 gm PO ONCE PRN; Protocol PRN Reason: Hypoglycemia Protocol Donepezil HCl (Aricept) 10 mg PO HS [facility] Last Admin: 11/10/18 21:43 Dose: 10 mg Enalapril Maleate (Vasotec) 10 mg PO DAILY [facility] Last Admin: 11/11/18 09:59 Dose: 10 mg Epoetin Gerson (Procrit) 4,000 unit IV MWF [facility] Last Admin: 11/10/18 11:28 Dose: 4,000 unit Famotidine (Pepcid) 20 mg PO DAILY [facility] Last Admin: 11/11/18 10:00 Dose: 20 mg Glucagon (Glucagen Diagnostic Kit) 0 mg IM STAT PRN; Protocol PRN Reason: Hypoglycemia Protocol Heparin Sodium (Porcine) (Heparin) 4,600 units IVP TTS [facility] Last Admin: 11/11/18 10:03 Dose: Not Given Hydralazine HCl (Apresoline) 25 mg PO TID [facility] Last Admin: 11/01/18 13:27 Dose: 25 mg Insulin Aspart (Novolog) 0 unit SC ACHS [facility] Last Admin: 11/11/18 12:30 Dose: 3 units Insulin Aspart (Novolog) 10 unit SC AC [facility] Last Admin: 11/11/18 12:31 Dose: 10 units Insulin Glargine (Lantus) 44 unit SC HS [facility] Last Admin: 11/10/18 21:44 Dose: Not Given Levetiracetam (Keppra) 500 mg PO DIAL [facility] Last Admin: 11/10/18 13:47 Dose: 500 mg Losartan Potassium (Cozaar) 50 mg PO DAILY [facility] Last Admin: 11/11/18 10:00 Dose: 50 mg Montelukast Sodium (Singulair) 10 mg PO DAILY [facility] Last Admin: 11/11/18 10:00 Dose: 10 mg Quetiapine Fumarate (Seroquel) 25 mg PO DAILY [facility] Last Admin: 10/28/18 10:44 Dose: 25 mg Rosuvastatin Calcium (Crestor) [address] [facility] Last Admin: 11/10/18 21:43 Dose: 5 mg Vitamin B Complex/Vit C/Folic Acid (Nephro-Marina) 1 tab PO 0800 [facility] Last Admin: 11/11/18 08:16 Dose: 1 tab - Labs Labs: 11/07/18 09:54 11/10/18 10:17 PT 11.0 SECONDS (9.7-12.2) 11/04/18 08:13 INR 1.0 11/04/18 08:13 APTT 36 SECONDS (21-34) H 11/04/18 08:13 Assessment and Plan - Assessment and Plan (Free Text) Assessment: +83 year old dialysis patient admitted with high blood sugar, awake alert, follows commands. No acute distress. Plan to discharge home today, family refuses rehab. All prescriptions given, advised to watch th blood sugar closely. Advised to follow up with PMD in 1 week. HD to continue MWF as scheduled.
--- NOTE | 2018-11-11 17:53 | PCM.HF ---
Heart Failure Core Measure - Heart Failure Ejection Fraction: 40 % or Greater (EF 70%) ADORE Inhibitor Prescribed: Yes Beta-Soraya Prescribed: None Contraindication/Reason for not providing: EF >40% Angiotensin II Receptor Soraya Prescribed: Yes AnticoagulationTherapy for Atrial Fibrillation/Atrialflutter: No Contraindication/Reason for not providing: no afib Aldosterone Antagonist Prescribed: No Contraindication/Reason for not providing: ESRD Hydralazine Nitrate Prescribed: Yes Implantable Cardioverter Defibrillator Therapy: No Contraindication/Reason for not providing: EF >40% Cardiac Resynchronization Therapy Prescribed: No Contraindication/Reason for not providing: not indicated - Follow up Will be discharged to: Home Follow Up Date (must be within 7 days from discharge): 11/17/18 Follow Up Time: 10:00
--- NOTE | 2018-11-11 23:12 | CP.PCM.DIS ---
Provider - Provider Date of Admission: 10/27/18 11:11 Attending physician: Valdez Mccracken MD Consults: 10/27/18 11:10 Physician Consult Stat Comment: Consulting Provider: Kanika Diaz Consulting Physician: Kankia Diaz Reason for Consult: esrd 10/27/18 18:54 Physician Consult Routine Comment: Consulting Provider: Efren Mei Consulting Physician: Efren Mei Reason for Consult: T wave invertion on Ek[employer] 10/28/18 08:00 Neurology Consult Routine Comment: seizure Consulting Provider: Rober Sanabria Consulting Physician: Rober Sanabria Reason for Consult: seizure 10/28/18 09:48 Physician Consult Routine Comment: Consulting Provider: Bella Gold Consulting Physician: Bella Gold Reason for Consult: uncontrolled diabetes 10/29/18 09:29 General Surgery Consult Routine Comment: Consulting Provider: Damion Mccormick Jr. Consulting Physician: Damion Mccormick Jr. Reason for Consult: nonfunctioning dialysis access 11/04/18 10:26 Physician Consult Routine Comment: Consulting Provider: Efren Mei Consulting Physician: Efren Mei Reason for Consult: surgical clearance Time Spent in preparation of Discharge (in minutes): 26 Diagnosis - Discharge Diagnosis (1) ESRD (end stage renal disease) Status: Chronic (2) Lactic acidosis Status: Acute (3) Altered mental status Status: Acute (4) Arthralgia Status: Acute (5) Uncontrolled diabetes mellitus Status: Acute Priority: Medium (6) AV fistula occlusion Status: Acute Hospital Course - Lab Results Lab Results: Micro Results 11/03/18 15:57 Blood-During Dialysis Blood Culture - Final NO GROWTH AFTER 5 DAYS 11/03/18 15:57 Blood-During Dialysis Gram Stain - Final TEST NOT PERFORMED 11/03/18 14:59 Blood-During Dialysis Blood Culture - Final NO GROWTH AFTER 5 DAYS 11/03/18 14:59 Blood-During Dialysis Gram Stain - Final TEST NOT PERFORMED 10/27/18 09:09 Blood Blood Culture - Final NO GROWTH AFTER 5 DAYS 10/27/18 09:09 Blood Gram Stain - Final TEST NOT PERFORMED 10/27/18 09:09 Blood Blood Culture - Final NO GROWTH AFTER 5 DAYS 10/27/18 09:09 Blood Gram Stain - Final TEST NOT PERFORMED 10/29/18 13:49 Naris MRSA Culture - Final MRSA NOT DETECTED 10/27/18 13:21 Naris MRSA Culture (Admit) - Final MRSA NOT DETECTED Most Recent Lab Values WBC 7.4 K/uL (4.8-10.8) 11/07/18 09:54 RBC 3.22 Mil/uL (3.80-5.20) L 11/07/18 09:54 Hgb 8.8 g/dL (11.0-16.0) L 11/07/18 09:54 Hct 27.5 % (34.0-47.0) L 11/07/18 09:54 MCV 85.4 fL (81.0-99.0) 11/07/18 09:54 MCH 27.4 pg (27.0-31.0) 11/07/18 09:54 MCHC 32.0 g/dL (33.0-37.0) L 11/07/18 09:54 RDW 17.4 % (11.5-14.5) H 11/07/18 09:54 Plt Count 304 K/uL (130-400) 11/07/18 09:54 MPV 8.7 fL (7.2-11.7) 11/07/18 09:54 Neut % (Auto) 73.5 % (50.0-75.0) 11/07/18 09:54 Lymph % (Auto) 13.9 % (20.0-40.0) L 11/07/18 09:54 [place] % (Auto) 8.8 % (0.0-10.0) 11/07/18 09:54 Eos % (Auto) 3.0 % (0.0-4.0) 11/07/18 09:54 Baso % (Auto) 0.8 % (0.0-2.0) 11/07/18 09:54 Neut # (Auto) 5.5 K/uL (1.8-7.0) 11/07/18 09:54 Lymph # (Auto) 1.0 K/uL (1.0-4.3) 11/07/18 09:54 [place] # (Auto) 0.7 K/uL (0.0-0.8) 11/07/18 09:54 Eos # (Auto) 0.2 K/uL (0.0-0.7) 11/07/18 09:54 Baso # (Auto) 0.1 K/uL (0.0-0.2) 11/07/18 09:54 Neutrophils % (Manual) 89 % (50-75) H 10/27/18 18:20 Lymphocytes % (Manual) 7 % (20-40) L 10/27/18 18:20 Monocytes % (Manual) 4 % (0-10) 10/27/18 18:20 Eosinophils % (Manual) TEST NOT PERFORMED 10/27/18 08:51 Platelet Estimate Normal (NORMAL) 10/27/18 18:20 Giant Platelets Present 10/27/18 18:20 Poikilocytosis (manual Slight 10/27/18 08:51 Anisocytosis (manual) Moderate 10/27/18 08:51 Target Cells Slight 10/27/18 08:51 Ovalocytes Slight 10/27/18 08:51 Syed Cells Slight 10/27/18 08:51 PT 11.0 SECONDS (9.7-12.2) 11/04/18 08:13 INR 1.0 11/04/18 08:13 APTT 36 SECONDS (21-34) H 11/04/18 08:13 pO2 92 mm/Hg (30-55) H 10/27/18 18:25 VBG pH 7.50 (7.32-7.43) H 10/27/18 18:25 VBG pCO2 26 mmHg (40-60) L 10/27/18 18:25 VBG HCO3 23.8 mmol/L 10/27/18 18:25 VBG Total CO2 21.1 mmol/L (22-28) L 10/27/18 18:25 VBG O2 Sat (Calc) 98.2 % (40-65) H 10/27/18 18:25 VBG Base Excess -1.4 mmol/L (0.0-2.0) L 10/27/18 18:25 VBG Potassium 2.7 mmol/L (3.6-5.2) L 10/27/18 18:25 Sodium 145.0 mmol/l (132-148) 10/27/18 18:25 Chloride 113.0 mmol/L (98-107) H 10/27/18 18:25 Glucose 198 mg/dl (65-105) H 10/27/18 18:25 Lactate 2.2 mmol/L (0.7-2.1) H 10/27/18 18:25 Crit Value Called To Dr ferreira 10/27/18 08:50 Crit Value Called By Lele hamilton reservationist 10/27/18 08:50 Crit Value Read Back Y 10/27/18 08:50 Blood Gas Notified Time 854 10/27/18 08:50 Sodium 129 mmol/L (132-148) L 11/10/18 10:17 Potassium 4.6 mmol/L (3.6-5.2) 11/10/18 10:17 Chloride 97 mmol/L (98-107) L 11/10/18 10:17 Carbon Dioxide 22 mmol/L (22-30) 11/10/18 10:17 Anion Gap 15 (10-20) 11/10/18 10:17 BUN 64 mg/dL (7-17) H 11/10/18 10:17 Creatinine 5.6 mg/dL (0.7-1.2) H 11/10/18 10:17 Est GFR ( Amer) 9 11/10/18 10:17 Est GFR (Non-Af Amer) 7 11/10/18 10:17 POC Glucose (mg/dL) 85 mg/dL (65-110) 11/11/18 16:12 Random Glucose 331 mg/dL (65-105) H D 11/10/18 10:17 Hemoglobin A1c 12.6 % (4.2-6.5) H 10/29/18 06:20 Serum Osmolality 310 mosm/kg (272-300) H 10/27/18 20:28 Lactic Acid 4.4 mmol/L (0.7-2.1) H* 10/27/18 12:20 Calcium 9.1 mg/dl (8.6-10.4) 11/10/18 10:17 Phosphorus 3.8 mg/dL (2.5-4.5) 11/03/18 14:59 Magnesium 2.5 mg/dL (1.6-2.3) H 11/03/18 14:59 Total Bilirubin 0.3 mg/dL (0.2-1.3) 11/03/18 14:59 AST 21 U/L (14-36) 11/03/18 14:59 ALT 17 U/L (9-52) 11/03/18 14:59 Alkaline Phosphatase 111 U/L (38-126) 11/03/18 14:59 Troponin I 0.0750 ng/mL (0.00-0.120) 11/04/18 11:35 C-Reactive Protein 47.20 mg/L (0.0-9.9) H 11/04/18 11:28 NT-Pro-B Natriuret Pep 1550 pg/mL (0-900) H 11/04/18 11:35 Total Protein 5.6 g/dL (6.3-8.3) L 11/03/18 14:59 Albumin 3.2 g/dL (3.5-5.0) L 11/03/18 14:59 Globulin 2.5 gm/dL (2.2-3.9) 11/03/18 14:59 Albumin/Globulin Ratio 1.3 (1.0-2.1) 11/03/18 14:59 Triglycerides 226 mg/dL (0-149) H D 10/29/18 06:20 Cholesterol 161 mg/dL (0-199) 10/29/18 06:20 LDL Cholesterol Direct 66 mg/dL (0-129) 10/29/18 06:20 HDL Cholesterol 75 mg/dL (30-70) H 10/29/18 06:20 TSH 3rd Generation 0.04 mIU/L (0.46-4.68) L 10/29/18 06:20 Venous Blood Potassium 2.7 mmol/L (3.6-5.2) L 10/27/18 18:25 Urine Color Yellow (YELLOW) 10/27/18 10:27 Urine Clarity Clear (Clear) 10/27/18 10:27 Urine pH 6.0 (5.0-8.0) 10/27/18 10:27 Ur Specific [place] 1.015 (1.003-1.030) 10/27/18 10:27 Urine Protein 3+ mg/dL (NEGATIVE) H 10/27/18 10:27 Urine Glucose (UA) 3+ mg/dL (Normal) H 10/27/18 10:27 Urine Ketones Trace mg/dL (NEGATIVE) 10/27/18 10:27 Urine Blood Trace (NEGATIVE) 10/27/18 10:27 Urine Nitrate Negative (NEGATIVE) 10/27/18 10:27 Urine Bilirubin Negative (NEGATIVE) 10/27/18 10:27 Urine Urobilinogen Normal mg/dL (0.2-1.0) 10/27/18 10:27 Ur Leukocyte Esterase Trace John/uL (Negative) 10/27/18 10:27 Urine WBC (Auto) 14 /hpf (0-5) H 10/27/18 10:27 Urine RBC (Auto) 10 /hpf (0-3) H 10/27/18 10:27 Ur Squamous Epith Cells < 1 /hpf (0-5) 10/27/18 10:27 B-Hydroxybutyrate 0.40 mM (0.02-0.27) H 10/27/18 10:00 Hep Bs Antigen Negative (NEGATIVE) 11/07/18 09:54 Hep B Core IgM Ab Negative (NEGATIVE) 11/07/18 09:54 Hepatitis C Antibody Negative (NEGATIVE) 11/07/18 09:54 Influenza Typ A,B (EIA) Negative for flu a/b (NEGATIVE) 10/27/18 08:49 Blood Type O POSITIVE 11/04/18 08:13 Antibody Screen Negative 11/04/18 08:13 Discharge Exam - Head Exam Head Exam: NORMOCEPHALIC - Eye Exam Eye Exam: Normal appearance Pupil Exam: NORMAL ACCOMODATION - ENT Exam ENT Exam: Normal Exam - Neck Exam Neck exam: Normal Inspection - Respiratory Exam Respiratory Exam: Decreased Breath Sounds - Cardiovascular Exam Cardiovascular Exam: REGULAR RHYTHM - GI/Abdominal Exam GI & Abdominal Exam: Normal Bowel Sounds - Rectal Exam Rectal Exam: Deferred - Exam External exam: NORMAL EXTERNAL EXAM - Extremities Exam Extremities exam: tenderness - Back Exam Back exam: NORMAL INSPECTION - Neurological Exam Neurological exam: Altered - Psychiatric Exam Psychiatric exam: Depressed - Skin Skin Exam: Dry Discharge Plan - Discharge Medications Prescriptions: hydrALAZINE [Apresoline] 25 mg PO TID #90 tab Donepezil [Aricept] 10 mg PO HS #30 tab Glucose Meter [Blood Glucose Monitoring System] 1 dev SQ BID #1 dev Losartan [Cozaar] 50 mg PO DAILY #30 tab Rosuvastatin Calcium [Crestor] 5 mg PO HS #30 tab levETIRAcetam [Keppra] 500 mg PO DIAL 30 Days syr Insulin Glargine, Recombina [Lantus] 44 unit SC HS 30 Days unit Vitamin B Complex/Vit C/Folic [Nephro-Marina] 1 tab PO 0800 #30 tab Famotidine [Pepcid] 20 mg PO DAILY #30 tab Clopidogrel [Plavix] 75 mg PO DAILY #30 tab QUEtiapine [Seroquel] 25 mg PO DAILY #30 tab Montelukast [Singulair] 10 mg PO DAILY #30 tab Enalapril Maleate [Vasotec] 10 mg PO DAILY #30 tab - Follow Up Plan Condition: STABLE Disposition: HOME/ ROUTINE Instructions: Diabetes Exchange Diet, Diabetic Meal Planning , Dialysis and Diet Additional Instructions: continue with HD, MWF as scheduled follow up with PMD in 1 week home care/ home PT for unsteady gait monitor blood sugar closely follow up with endocrinologyst in 1 week. Referrals: Valdez Mccracken MD [Staff Provider] -
--- NOTE | 2018-11-12 01:00 | PN ---
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 Her glycemic levels are fluctuating with supervening hyperglycemic accelerations as noted tonight. Her glucose levels have raised from 91-175 and 392 mg per dL. I am almost certain that the patient's basal insulin was held by the nursing staff once again last night when we are able to achieve near optimal metabolic goals or metabolic numbers as noted overnight. So at this time, we will hold off those adjustments of her insulin regimen to allow for dose equilibration and also hopefully for the nursing staff not to withhold the insulin regimen as recommended. We will continue the modified NovoLog given as 10 units t.i.d. before meals as ordered. We will also continue the basal insulin given as latus at 44 units subcu at bedtime daily as given. We will titrate incrementally as indicated to optimize metabolic control. We will follow. Bella Gold MD
== END 2018-11-11 18:34 | disposition home or self-care (01) | DRG 628 ==
LOC: C.ER 08:03 → C.5S 11:11 → C.9I 11:33 → C.3T 10-29 12:43
PROVIDERS: ADMIT Internal Medicine; ATTEND Internal Medicine
PROC: 5A1D70Z Performance of Urinary Filtration, Intermittent, Less than 6 Hours Per Day (ICD-10-PCS; 2018-10-27)
PROC: 0JH63XZ Insertion of Tunneled Vascular Access Device into Chest Subcutaneous Tissue and Fascia, Percutaneous Approach (ICD-10-PCS; 2018-10-30)
PROC: 06H033Z Insertion of Infusion Device into Inferior Vena Cava, Percutaneous Approach (ICD-10-PCS; 2018-10-30)
PROC: B519ZZA Fluoroscopy of Inferior Vena Cava, Guidance (ICD-10-PCS; 2018-10-30)
PROC: B544ZZA Ultrasonography of Left Jugular Veins, Guidance (ICD-10-PCS; 2018-10-30)
PROC: 5A1D70Z Performance of Urinary Filtration, Intermittent, Less than 6 Hours Per Day (ICD-10-PCS; 2018-10-30)
PROC: 5A1D70Z Performance of Urinary Filtration, Intermittent, Less than 6 Hours Per Day (ICD-10-PCS; 2018-10-31)
PROC: 5A1D70Z Performance of Urinary Filtration, Intermittent, Less than 6 Hours Per Day (ICD-10-PCS; 2018-11-03)
PROC: 06PY33Z Removal of Infusion Device from Lower Vein, Percutaneous Approach (ICD-10-PCS; 2018-11-04)
PROC: 02HV33Z Insertion of Infusion Device into Superior Vena Cava, Percutaneous Approach (ICD-10-PCS; 2018-11-04)
PROC: B518ZZA Fluoroscopy of Superior Vena Cava, Guidance (ICD-10-PCS; 2018-11-04)
PROC: 03170ZD Bypass Right Brachial Artery to Upper Arm Vein, Open Approach (ICD-10-PCS; principal; 2018-11-04 12:00)
PROC: 5A1D70Z Performance of Urinary Filtration, Intermittent, Less than 6 Hours Per Day (ICD-10-PCS; 2018-11-05)
PROC: 5A1D70Z Performance of Urinary Filtration, Intermittent, Less than 6 Hours Per Day (ICD-10-PCS; 2018-11-07)
PROC: 5A1D70Z Performance of Urinary Filtration, Intermittent, Less than 6 Hours Per Day (ICD-10-PCS; 2018-11-10)
DX: E11.00 Type 2 diabetes mellitus with hyperosmolarity without nonketotic hyperglycemic-hyperosmolar coma (NKHHC) (principal); N18.6 End stage renal disease; T82.868A Thrombosis due to vascular prosthetic devices, implants and grafts, initial encounter; E87.2 Acidosis; I13.2 Hypertensive heart and chronic kidney disease with heart failure and with stage 5 chronic kidney disease, or end stage renal disease; T82.41XA Breakdown (mechanical) of vascular dialysis catheter, initial encounter; T82.898A Other specified complication of vascular prosthetic devices, implants and grafts, initial encounter; E11.10 Type 2 diabetes mellitus with ketoacidosis without coma; E11.22 Type 2 diabetes mellitus with diabetic chronic kidney disease; E78.00 Pure hypercholesterolemia, unspecified; F03.90 Unspecified dementia, unspecified severity, without behavioral disturbance, psychotic disturbance, mood disturbance, and anxiety; I50.9 Heart failure, unspecified; J43.9 Emphysema, unspecified; D63.1 Anemia in chronic kidney disease; E11.21 Type 2 diabetes mellitus with diabetic nephropathy; E11.42 Type 2 diabetes mellitus with diabetic polyneuropathy; E11.51 Type 2 diabetes mellitus with diabetic peripheral angiopathy without gangrene; I25.10 Atherosclerotic heart disease of native coronary artery without angina pectoris; R56.9 Unspecified convulsions; K21.9 Gastro-esophageal reflux disease without esophagitis; M19.90 Unspecified osteoarthritis, unspecified site; F41.9 Anxiety disorder, unspecified; E11.649 Type 2 diabetes mellitus with hypoglycemia without coma; E11.319 Type 2 diabetes mellitus with unspecified diabetic retinopathy without macular edema; G25.3 Myoclonus; E78.5 Hyperlipidemia, unspecified; H54.62 Unqualified visual loss, left eye, normal vision right eye; Y83.2 Surgical operation with anastomosis, bypass or graft as the cause of abnormal reaction of the patient, or of later complication, without mention of misadventure at the time of the procedure; Z99.2 Dependence on renal dialysis; Z79.4 Long term (current) use of insulin; Z86.73 Personal history of transient ischemic attack (TIA), and cerebral infarction without residual deficits; Z87.440 Personal history of urinary (tract) infections; Z87.81 Personal history of (healed) traumatic fracture; Z83.3 Family history of diabetes mellitus

== ENCOUNTER 2018-12-07 08:42 | Observation (INO) | payer OTHER ==
[2018-12-07 08:42] VITALS: BMI 21.4
[2018-12-07] MEDS ORDERED: Morphine 4 MG/ML VIAL IV ONE (09:09)
--- NOTE | 2018-12-07 09:32 | C.PDOC ---
History Of Present Illness 83 years old female is a dialysis patient that presents to ED for complaints of dull and constant frontal headache that began yesterday. Patient's last dialysis was on Saturday. Denies vomiting or any other complaints. Time Seen by Provider: 12/07/18 08:48 Chief Complaint (Nursing): Shortness Of Breath History Per: Patient History/Exam Limitations: no limitations Onset/Duration Of Symptoms: Hrs Current Symptoms Are (Timing): Still Present Quality: Dull Current Respiratory Medications: See Home Med List Associated Symptoms: denies: Fever, Chills Recent travel outside of the [place]: No Past Medical History Reviewed: Historical Data, Nursing Documentation, Vital Signs Vital Signs: Last Vital Signs Temp 98.3 F 12/07/18 08:49 Pulse 118 H 12/07/18 08:49 Resp 42 H 12/07/18 08:49 BP 177/90 H 12/07/18 08:49 Pulse Ox 98 12/07/18 08:49 - Medical History PMH: Anxiety, Arthritis, Asthma, Bronchitis, Cardia Arrhythmia, CHF, COPD, Dementia, Depression, Diabetes (type 2), Emphysema, Fractures, HTN, Hypercholesterolemia, Migraine, End Stage Renal Disease (ESRD), Chronic Kidney Disease, TIA - [facility] Procedures (10/27/18) ASSISTANCE WITH RESPIRATORY VENTILATION, 24-96 HRS, CPAP (11/01/16) BYPASS RIGHT BRACHIAL ARTERY TO UP ARM VEIN, OPEN APPROACH (10/27/18) FLUOROSCOPY OF INFERIOR VENA CAVA, GUIDANCE (10/27/18) FLUOROSCOPY OF SUPERIOR VENA CAVA, GUIDANCE (10/27/18) INSERTION OF INFUSION DEV INTO INF VENA CAVA, PERC APPROACH (10/27/18) INSERTION OF INFUSION DEV INTO SUP VENA CAVA, PERC APPROACH (10/27/18) INSERTION OF VAD INTO CHEST SUBCU/FASCIA, PERC APPROACH (10/27/18) PERFORMANCE OF URINARY FILTRATION, MULTIPLE (12/24/16) PERFORMANCE OF URINARY FILTRATION, SINGLE (11/01/16) REMOVAL OF INFUSION DEVICE FROM LOWER VEIN, PERC APPROACH (10/27/18) ULTRASONOGRAPHY OF LEFT JUGULAR VEINS, GUIDANCE (10/27/18) Family History: States: Unknown Family Hx - Social History Hx Tobacco Use: No Hx Alcohol Use: No Hx Substance Use: No - Immunization History Hx Tetanus Toxoid Vaccination: Yes Hx Influenza Vaccination: Yes Hx Pneumococcal Vaccination: Yes Review Of Systems Except As Marked, All Systems Reviewed And Found Negative. Constitutional: Negative for: Fever, Chills Gastrointestinal: Negative for: Nausea, Vomiting, Diarrhea Skin: Negative for: Rash Neurological: Positive for: Headache (Frontal ). Negative for: Weakness, Numbness Physical Exam - Physical Exam Appears: Non-toxic, No Acute Distress, In Acute Distress (tachypnea) Skin: Warm, Dry, No Rash Head: Atraumatic, Normacephalic Eye(s): bilateral: Normal Inspection, PERRL, EOMI Nose: Normal Oral Mucosa: Moist Tongue: Normal Appearing Lips: Normal Appearing Throat: Normal Neck: Normal ROM, Supple Chest: Symmetrical, No Tenderness Cardiovascular: Rhythm Regular (Tachycardic ) Respiratory: No Rales, No Rhonchi, No Wheezing, Other (dyspnea, tachypnea) Gastrointestinal/Abdominal: Soft, No Tenderness Extremity: Normal ROM Extremity: Bilateral: Atraumatic, Normal Color And Temperature, Normal ROM Pulses: Left Radial: Normal, Right Radial: Normal Neurological/Psych: Oriented x3, Normal Speech, Other (No focal deficits ) Gait: Steady ED Course And Treatment - Laboratory Results Result Diagrams: 12/07/18 09:22 12/07/18 09:22 O2 Sat by Pulse Oximetry: 98 (RA) Pulse Ox Interpretation: Normal - CT Scan/US Head CT Other Rad Studies (CT/US): Read By Radiologist, Radiology Report Reviewed CT/US Interpretation: Date of service: 12/07/2018. PROCEDURE: CT HEAD WITHOUT CONTRAST. HISTORY: Headache. COMPARISON: Comparison made with prior CT scan of the brain 10/27/2018. TECHNIQUE: Axial computed tomography images were obtained through the head/brain without intravenous contrast. Radiation dose: Total exam DLP = 1126.1 mGy-cm. This CT exam was performed using one or more of the following dose reduction techniques: Automated exposure control, adjustment of the mA and/or kV according to patient size, and/or use of iterative reconstruction technique. FINDINGS: HEMORRHAGE: No acute parenchymal, subarachnoid nor extra-axial hemorrhage. BRAIN: Mild diffuse and confluent chronic periventricular white matter ischemic changes seen extending peripheral ly into the deep white matter both cerebral hemispheres. Moderate central volume loss. Moderate vascular calcifications both carotid siphons and vertebral arteries. No obvious parenchymal nor extra-axial masses or collections seen on this noncontrast study. VENTRICLES: Unremarkable. No hydrocephalus. CALVARIUM: Unremarkable. PARANASAL SINUSES: Unremarkable as visualized. No significant inflammatory changes. MASTOID AIR CELLS: There appears to be partial opacification both mastoid air complexes more so on the right. OTHER FINDINGS: Changes of bilateral cataract surgery. IMPRESSION: No acute intracranial hemorrhage. Mild diffuse and confluent chronic periventricular white matter ischemic changes. Moderate central volume loss. Partial opacification both mastoid air complexes Medical Decision Making Medical Decision Making: Plan: * Morphine * Zofran * CXR * Blood work * CT Head * EKG * Urinalysis O2 via nasal cannula CXR: * Vascular congestion * Cardiomegaly * Pulmonary edema Discussed case with . Agreed to admit patient under Tele. Consulted with Dr. Crews and Dr. Mei (director of business continuity). Disposition - Disposition Disposition: HOSPITALIZED Disposition Time: 14:00 Condition: STABLE - Clinical Impression Clinical Impression: Pulmonary edema, ESRD (end stage renal disease) - Scribe Statement The provider has reviewed the documentation as recorded by the Scribdre Price All medical record entries made by the Floweribdre were at my direction and personally dictated by me. I have reviewed the chart and agree that the record accurately reflects my personal performance of the history, physical exam, medical decision making, and the department course for this patient. I have also personally directed, reviewed, and agree with the discharge instructions and disposition.
[2018-12-07 09:34] LABS: BASO # 0.1 K/uL (0.0-0.2); BASO % 0.6 % (0.0-2.0); EOS % 0.1 % (0.0-4.0); HEMOGLOBIN 9.2 g/dL (11.0-16.0); LYMPH # 0.9 K/uL (1.0-4.3); LYMPH % 9.1 % (20.0-40.0); MEAN CELL VOLUME 85.6 fL (81.0-99.0); MEAN CORPUSCULAR HEMOGLOBIN 26.9 pg (27.0-31.0); MEAN CORPUSCULAR HGB CONC 31.4 g/dL (33.0-37.0); MONO % 10.6 % (0.0-10.0); NEUT # 7.7 K/uL (1.8-7.0); NEUT % 79.6 % (50.0-75.0); NRBC % 0.1 % (0.0-2.0); PLATELET COUNT 281 K/uL (130-400); RBC 3.41 Mil/uL (3.80-5.20); RED CELL DISTRIBUTION WIDTH 18.5 % (11.5-14.5); WHITE BLOOD COUNT 9.7 K/uL (4.8-10.8)
[2018-12-07 09:58] LABS: LYMPHOCYTE 10 % (20-40); TOTAL CELLS COUNTED 100
[2018-12-07 09:59] LABS: ANISOCYTOSIS SLIGHT; MONOCYTE 9 % (0-10); NEUTROPHIL 81 % (50-75); PLATELET ESTIMATE NORMAL (NORMAL)
[2018-12-07 10:00] LABS: HYPOCHROMIC SLIGHT; MICROCYTOSIS SLIGHT; POIKILOCYTOSIS SLIGHT; POLYCHROMIC SLIGHT
[2018-12-07 10:01] LABS: OVALOCYTES SLIGHT; TEARDROP CELLS SLIGHT
[2018-12-07 10:05] LABS: ALB/GLOB RATIO 1.5 (1.0-2.1); ALBUMIN 4.4 g/dL (3.5-5.0)
[2018-12-07 10:22] LABS: INR 1.1
--- NOTE | 2018-12-07 10:47 | CT ---
Date of service: 12/07/2018 PROCEDURE: CT HEAD WITHOUT CONTRAST. HISTORY: Headache COMPARISON: Comparison made with prior CT scan of the brain 10/27/2018. TECHNIQUE: Axial computed tomography images were obtained through the head/brain without intravenous contrast. Radiation dose: Total exam DLP = 1126.1 mGy-cm. This CT exam was performed using one or more of the following dose reduction techniques: Automated exposure control, adjustment of the mA and/or kV according to patient size, and/or use of iterative reconstruction technique. FINDINGS: HEMORRHAGE: No acute parenchymal, subarachnoid nor extra-axial hemorrhage. BRAIN: Mild diffuse and confluent chronic periventricular white matter ischemic changes seen extending peripherally into the deep white matter both cerebral hemispheres. Moderate central volume loss. Moderate vascular calcifications both carotid siphons and vertebral arteries. No obvious parenchymal nor extra-axial masses or collections seen on this noncontrast study. VENTRICLES: Unremarkable. No hydrocephalus. CALVARIUM: Unremarkable. PARANASAL SINUSES: Unremarkable as visualized. No significant inflammatory changes. MASTOID AIR CELLS: There appears to be partial opacification both mastoid air complexes more so on the right OTHER FINDINGS: Changes of bilateral cataract surgery. IMPRESSION: No acute intracranial hemorrhage. Mild diffuse and confluent chronic periventricular white matter ischemic changes. Moderate central volume loss. Partial opacification both mastoid air complexes
[2018-12-07 11:01] LABS: TROPONIN I 0.297 ng/mL (0.00-0.120)
--- NOTE | 2018-12-07 16:10 | RAD ---
Date of service: 12/07/2018 HISTORY: SOB COMPARISON: Comparison chest dated 11/04/2018 FINDINGS: Redemonstrated is a left IJ dialysis catheter with tips in the SVC/RA junction. Also again noted is a endovascular stent graft overlying the medial right lung apex. LUNGS: Mild pulmonary venous congestive changes with bilateral lower lobe alveolar-type infiltrates and bilateral effusions PLEURA: As above. No pneumothorax apparent. CARDIOVASCULAR: No aortic atherosclerotic calcification present. Heart is mildly enlarged. OSSEOUS STRUCTURES: No significant abnormalities. VISUALIZED UPPER ABDOMEN: Normal. OTHER FINDINGS: None. IMPRESSION: Mild pulmonary venous congestive changes with bilateral lower lobe alveolar-type infiltrates and bilateral effusions
[2018-12-07] MEDS: (Novolog) Insulin Aspart, Recombinant 100 u/ml 10 ml vial SC SCH ×2 (17:16→21:17)
[2018-12-07] MEDS: (Lantus) Insulin Glargine, Recombinant SC SCH (18:03)
[2018-12-07] MEDS: Albuterol 0.042% Inhal Sol (1.25 mg/3 mL) UD INH SCH ×2 (18:15→19:15)
[2018-12-07 21:58] LABS: CK-MB 1.62 ng/mL (0.0-3.38); TROPONIN I 0.259 ng/mL (0.00-0.120)
--- NOTE | 2018-12-07 22:24 | CP.PCM.HP ---
History of Present Illness - History of Present Illness History of Present Illness: 83-year-old female with end-stage renal disease and diabetes mellitus comes to the [facility] emergency room complaining of chest pain, shortness of breath and frontal headache for the past 2 days. patient was evaluated in the ER and found to have a pro BNT of 36,000 and elevated troponin level. Patient was advised admission for treatment. Arrangements were immediately made for a dialysis treatment. patient has had numerous admissions for uncontrolled diabetes mellitus, coronary insufficiency, shoulder dislocat ion, and seizure disorder. Present on Admission - Present on Admission Any Indicators Present on Admission: No History of DVT/PE: No History of Uncontrolled Diabetes: No Urinary Catheter: No Decubitus Ulcer Present: No History Surgical Site Infection Following: None Review of Systems - Review of Systems Systems not reviewed;Unavailable: Other (chest pain) - Constitutional Constitutional: Fatigue, Headache - Cardiovascular Cardiovascular: Chest Pain - Respiratory Respiratory: Dyspnea - Gastrointestinal Gastrointestinal: Heartburn - Reproductive: Female Reproductive:Female: Post Menopausal - Musculoskeletal Musculoskeletal: Arthralgias - Integumentary Integumentary: Dry Skin - Neurological Neurological: Numbness - Psychiatric Psychiatric: Depression Past Patient History - Infectious Disease Hx of Infectious Diseases: None - Tetanus Immunizations Tetanus Immunization: Unknown, Up to Date - Past Medical History & Family History Past Medical History?: Yes - Past Social History Smoking Status: Never Smoked Chewing Tobacco Use: No Cigar Use: No Alcohol: None Drugs: Denies Home Situation {Lives}: Alone - CARDIAC Hx Cardia Arrhythmia: Yes Hx Congestive Heart Failure: Yes Hx Hypercholesterolemia: Yes Hx Hypertension: Yes - PULMONARY Hx Asthma: Yes Hx Bronchitis: Yes Hx Chronic Obstructive Pulmonary Disease (COPD): Yes Hx Emphysema: Yes - NEUROLOGICAL Hx Dementia: Yes Hx Migraine: Yes Hx Transient Ischemic Attacks (TIA): Yes - HEENT Hx HEENT Problems: Yes Hx Blind: Yes (Left eye.) - RENAL Hx Chronic Kidney Disease: Yes - ENDOCRINE/METABOLIC Hx Endocrine Disorders: Yes Hx Diabetes Mellitus Type 2: Yes - INTEGUMENTARY Hx Dermatological Problems: Yes Hx Cellulitis: Yes Hx Eczema: Yes - MUSCULOSKELETAL/RHEUMATOLOGICAL Hx Arthritis: Yes Hx Fractures: Yes - GASTROINTESTINAL Hx Gastrointestinal Disorders: Yes Hx Gastroesophageal Reflux: Yes Hx Hemorrhoids: Yes - GENITOURINARY/GYNECOLOGICAL Hx Genitourinary Disorders: Yes Hx Urinary Tract Infection: Yes - PSYCHIATRIC Hx Anxiety: Yes Hx Depression: Yes Hx Substance Use: No - SURGICAL HISTORY Hx Surgeries: Yes Hx Arteriovenous Shunt: Yes (right arm) - ANESTHESIA Hx Anesthesia: Yes Hx Anesthesia Reactions: No Hx Malignant Hyperthermia: No Meds Allergies/Adverse Reactions: Allergies Allergy/AdvReac Type Severity Reaction Status Date / Time No Known Allergies Allergy Verified 12/07/18 08:59 Physical Exam - Constitutional Appears: Chronically Ill - Head Exam Head Exam: NORMOCEPHALIC - Eye Exam Eye Exam: Normal appearance Pupil Exam: NORMAL ACCOMODATION - ENT Exam ENT Exam: Normal Exam - Neck Exam Neck exam: Positive for: Normal Inspection - Respiratory Exam Respiratory Exam: Decreased Breath Sounds - Cardiovascular Exam Cardiovascular Exam: REGULAR RHYTHM - GI/Abdominal Exam GI & Abdominal Exam: Normal Bowel Sounds - Rectal Exam Rectal Exam: Deferred - Extremities Exam Extremities exam: Positive for: tenderness - Back Exam Back exam: NORMAL INSPECTION - Neurological Exam Neurological exam: Oriented x3 - Psychiatric Exam Psychiatric exam: Depressed - Skin Skin Exam: Dry Results - Vital Signs Recent Vital Signs: Last Vital Signs Temp 97.8 F 12/07/18 16:10 Pulse 100 H 12/07/18 19:16 Resp 24 12/07/18 16:10 BP 147/74 12/07/18 16:10 Pulse Ox 97 12/07/18 16:43 - Labs Result Diagrams: 12/07/18 09:22 12/07/18 09:22 Labs: Laboratory Results - last 24 hr 12/07/18 12/07/18 12/07/18 09:22 09:22 09:45 WBC 9.7 RBC 3.41 L Hgb 9.2 L Hct 29.2 L MCV 85.6 MCH 26.9 L MCHC 31.4 L RDW 18.5 H Plt Count 281 MPV 9.0 Neut % (Auto) 79.6 H Lymph % (Auto) 9.1 L Treasure % (Auto) 10.6 H Eos % (Auto) 0.1 Baso % (Auto) 0.6 Neut # (Auto) 7.7 H Lymph # (Auto) 0.9 L Treasure # (Auto) 1.0 H Eos # (Auto) 0.0 Baso # (Auto) 0.1 Neutrophils % (Manual) 81 H Lymphocytes % (Manual) 10 L Monocytes % (Manual) 9 Platelet Estimate Normal Polychromasia Slight Hypochromasia (manual) Slight Poikilocytosis (manual Slight Anisocytosis (manual) Slight Microcytosis (manual) Slight Macrocytosis (manual) Slight Tear Drop Cells Slight Ovalocytes Slight PT 12.0 INR 1.1 APTT 36 H Sodium 136 Potassium 5.7 H Chloride 100 Carbon Dioxide 24 Anion Gap 18 BUN 40 H Creatinine 3.7 H Est GFR ( Amer) 14 Est GFR (Non-Af Amer) 12 POC Glucose (mg/dL) Random Glucose 45 L D Lactic Acid Calcium 10.0 Total Bilirubin 1.0 AST 47 H D ALT 16 Alkaline Phosphatase 144 H D Total Creatine Kinase CK-MB (Mass) Troponin I 0.2970 H* NT-Pro-B Natriuret Pep 33211 H Total Protein 7.3 Albumin 4.4 Globulin 2.9 Albumin/Globulin Ratio 1.5 12/07/18 12/07/18 12/07/18 15:20 15:39 16:00 WBC RBC Hgb Hct MCV MCH MCHC RDW Plt Count MPV Neut % (Auto) Lymph % (Auto) Treasure % (Auto) Eos % (Auto) Baso % (Auto) Neut # (Auto) Lymph # (Auto) Treasure # (Auto) Eos # (Auto) Baso # (Auto) Neutrophils % (Manual) Lymphocytes % (Manual) Monocytes % (Manual) Platelet Estimate Polychromasia Hypochromasia (manual) Poikilocytosis (manual Anisocytosis (manual) Microcytosis (manual) Macrocytosis (manual) Tear Drop Cells Ovalocytes PT INR APTT Sodium Potassium Chloride Carbon Dioxide Anion Gap BUN Creatinine Est GFR ( Amer) Est GFR (Non-Af Amer) POC Glucose (mg/dL) 125 H Random Glucose Lactic Acid 0.7 Calcium Total Bilirubin AST ALT Alkaline Phosphatase Total Creatine Kinase CK-MB (Mass) Troponin I 0.3090 H* NT-Pro-B Natriuret Pep Total Protein Albumin Globulin Albumin/Globulin Ratio 12/07/18 12/07/18 12/07/18 17:08 20:59 21:19 WBC RBC Hgb Hct MCV MCH MCHC RDW Plt Count MPV Neut % (Auto) Lymph % (Auto) Treasure % (Auto) Eos % (Auto) Baso % (Auto) Neut # (Auto) Lymph # (Auto) Treasure # (Auto) Eos # (Auto) Baso # (Auto) Neutrophils % (Manual) Lymphocytes % (Manual) Monocytes % (Manual) Platelet Estimate Polychromasia Hypochromasia (manual) Poikilocytosis (manual Anisocytosis (manual) Microcytosis (manual) Macrocytosis (manual) Tear Drop Cells Ovalocytes PT INR APTT Sodium Potassium Chloride Carbon Dioxide Anion Gap BUN Creatinine Est GFR ( Amer) Est GFR (Non-Af Amer) POC Glucose (mg/dL) 182 H 251 H Random Glucose Lactic Acid Calcium Total Bilirubin AST ALT Alkaline Phosphatase Total Creatine Kinase 66 CK-MB (Mass) 1.62 Troponin I 0.2590 H* NT-Pro-B Natriuret Pep Total Protein Albumin Globulin Albumin/Globulin Ratio Assessment & Plan (1) Chronic congestive heart failure Status: Acute (2) ESRD on hemodialysis Status: Acute (3) Elevated troponin I level Status: Acute (4) Hypertension Status: Acute Priority: Medium (5) Type 2 diabetes mellitus with diabetic nephropathy Status: Acute
[2018-12-07 23:05] LABS: SQUAMOUS EPITHIAL 7 /hpf (0-5); URINE BACTERIA RARE (<OCC); URINE BILIRUBIN NEGATIVE (NEGATIVE); URINE BLOOD NEGATIVE (NEGATIVE); URINE CLARITY Hazy (Clear); URINE COLOR Yellow (YELLOW); URINE GLUCOSE (UA) 1+ mg/dL (Normal); URINE HYALINE CAST 0-2 /lpf (0-2); URINE LEUKOCYTE ESTERASE 1+ Leu/uL (Negative); URINE PROTEIN 3+ mg/dL (NEGATIVE); URINE UROBILINOGEN NORMAL mg/dL (0.2-1.0)
[2018-12-08] MEDS: Albuterol 0.042% Inhal Sol (1.25 mg/3 mL) UD INH SCH ×4 (02:22→21:17)
[2018-12-08] MEDS: (Novolog) Insulin Aspart, Recombinant 100 u/ml 10 ml vial SC SCH ×6 (07:32→21:10)
[2018-12-08] MEDS: Multivitamin Vitamin B Complex (Nephro-Vite) Tab PO SCH (09:22)
[2018-12-08 09:29] LABS: BASO % 0.6 % (0.0-2.0); EOS # 0.1 K/uL (0.0-0.7); EOS % 1.9 % (0.0-4.0); HEMOGLOBIN 9.6 g/dL (11.0-16.0); LYMPH # 1.1 K/uL (1.0-4.3); LYMPH % 15.9 % (20.0-40.0); MEAN CELL VOLUME 86.8 fL (81.0-99.0); MEAN CORPUSCULAR HEMOGLOBIN 27.1 pg (27.0-31.0); MEAN CORPUSCULAR HGB CONC 31.2 g/dL (33.0-37.0); MEAN PLATELET VOLUME 9.1 fL (7.2-11.7); MONO # 0.8 K/uL (0.0-0.8); MONO % 11.1 % (0.0-10.0); NEUT # 4.9 K/uL (1.8-7.0); NEUT % 70.5 % (50.0-75.0); NRBC % 0.1 % (0.0-2.0); RBC 3.54 Mil/uL (3.80-5.20); RED CELL DISTRIBUTION WIDTH 18.8 % (11.5-14.5)
[2018-12-08 09:44] LABS: ALB/GLOB RATIO 1.5 (1.0-2.1); ALBUMIN 4.3 g/dL (3.5-5.0); CALCIUM 9.4 mg/dl (8.6-10.4)
[2018-12-08 10:17] LABS: TROPONIN I 0.178 ng/mL (0.00-0.120)
--- NOTE | 2018-12-08 18:31 | CP.PCM.CON ---
History of Present Illness - History of Present Illness History of Present Illness: CONSULTATION DICTATED HEADACHE R/O VASCULITIS DISEQUILIBRIUM SYNDROME CORRECT ELECTROLYTES CONTINUE HD Past Patient History - Infectious Disease Hx of Infectious Diseases: None - Tetanus Immunizations Tetanus Immunization: Unknown, Up to Date - Past Medical History & Family History Past Medical History?: Yes - Past Social History Smoking Status: Never Smoked Chewing Tobacco Use: No Cigar Use: No Alcohol: None Drugs: Denies Home Situation {Lives}: Alone - CARDIAC Hx Cardia Arrhythmia: Yes Hx Congestive Heart Failure: Yes Hx Hypercholesterolemia: Yes Hx Hypertension: Yes - PULMONARY Hx Asthma: Yes Hx Bronchitis: Yes Hx Chronic Obstructive Pulmonary Disease (COPD): Yes Hx Emphysema: Yes - NEUROLOGICAL Hx Dementia: Yes Hx Migraine: Yes Hx Transient Ischemic Attacks (TIA): Yes - HEENT Hx HEENT Problems: Yes Hx Blind: Yes (Left eye.) - RENAL Hx Chronic Kidney Disease: Yes - ENDOCRINE/METABOLIC Hx Endocrine Disorders: Yes Hx Diabetes Mellitus Type 2: Yes - INTEGUMENTARY Hx Dermatological Problems: Yes Hx Cellulitis: Yes Hx Eczema: Yes - MUSCULOSKELETAL/RHEUMATOLOGICAL Hx Arthritis: Yes Hx Fractures: Yes - GASTROINTESTINAL Hx Gastrointestinal Disorders: Yes Hx Gastroesophageal Reflux: Yes Hx Hemorrhoids: Yes - GENITOURINARY/GYNECOLOGICAL Hx Genitourinary Disorders: Yes Hx Urinary Tract Infection: Yes - PSYCHIATRIC Hx Anxiety: Yes Hx Depression: Yes Hx Substance Use: No - SURGICAL HISTORY Hx Surgeries: Yes Hx Arteriovenous Shunt: Yes (right arm) - ANESTHESIA Hx Anesthesia: Yes Hx Anesthesia Reactions: No Hx Malignant Hyperthermia: No Meds Allergies/Adverse Reactions: Allergies Allergy/AdvReac Type Severity Reaction Status Date / Time No Known Allergies Allergy Verified 12/07/18 08:59 - Medications Medications: Current Medications Albuterol Sulfate (Albuterol 0.042% Inhal Luisa (1.25mg/3ml) Ud) 1.25 mg INH RQ6 [facility] Last Admin: 12/08/18 13:35 Dose: 1.25 mg Aspirin (Aspirin Chewable) 81 mg PO DAILY [facility] Last Admin: 12/08/18 09:21 Dose: 81 mg Clopidogrel Bisulfate (Plavix) 75 mg PO DAILY [facility] Last Admin: 12/08/18 09:21 Dose: 75 mg Donepezil HCl (Aricept) 10 mg PO HS [facility] Last Admin: 12/07/18 21:48 Dose: 10 mg Enalapril Maleate (Vasotec) 10 mg PO DAILY [facility] Last Admin: 12/08/18 14:05 Dose: Not Given Famotidine (Pepcid) 20 mg PO DAILY [facility] Last Admin: 12/08/18 09:21 Dose: 20 mg Heparin Sodium (Porcine) (Heparin) 5,000 units SC Q12H [facility] Hydralazine HCl (Apresoline) 25 mg PO TID [facility] Last Admin: 12/08/18 14:04 Dose: Not Given Insulin Aspart (Novolog) 0 unit SC ACHS [facility]; Protocol Last Admin: 12/08/18 14:34 Dose: 3 units Insulin Aspart (Novolog) 14 unit SC BIDAC [facility] Last Admin: 12/08/18 07:32 Dose: Not Given Insulin Glargine (Lantus) 20 unit SC 1800 [facility] Last Admin: 12/07/18 18:03 Dose: 20 unit Levetiracetam (Keppra) 500 mg PO BID [facility] Last Admin: 12/08/18 09:21 Dose: 500 mg Montelukast Sodium (Singulair) 10 mg PO DAILY [facility] Last Admin: 12/08/18 09:21 Dose: 10 mg Quetiapine Fumarate (Seroquel) 25 mg PO DAILY [facility] Last Admin: 12/08/18 09:21 Dose: 25 mg Rosuvastatin Calcium (Crestor) 5 mg PO HS [facility] Last Admin: 12/07/18 21:48 Dose: 5 mg Sevelamer Carbonate (Renvela) 800 mg PO TIDCC [facility] Last Admin: 12/08/18 14:34 Dose: 800 mg Vitamin B Complex/Vit C/Folic Acid (Nephro-Marina) 1 tab PO DAILY [facility] Last Admin: 12/08/18 09:22 Dose: 1 tab Results - Vital Signs Recent Vital Signs: Last Vital Signs Temp 97.6 F 12/08/18 16:09 Pulse 104 H 12/08/18 16:09 Resp 20 12/08/18 16:09 BP 113/65 12/08/18 16:09 Pulse Ox 96 12/08/18 16:09 - Labs Result Diagrams: 12/08/18 09:20 12/08/18 09:20 Labs: Laboratory Results - last 24 hr 12/07/18 12/07/18 12/07/18 20:59 21:19 22:58 WBC RBC Hgb Hct MCV MCH MCHC RDW Plt Count MPV Neut % (Auto) Lymph % (Auto) Harmon % (Auto) Eos % (Auto) Baso % (Auto) Neut # (Auto) Lymph # (Auto) Harmon # (Auto) Eos # (Auto) Baso # (Auto) ESR Sodium Potassium Chloride Carbon Dioxide Anion Gap BUN Creatinine Est GFR ( Amer) Est GFR (Non-Af Amer) POC Glucose (mg/dL) 251 H Random Glucose Hemoglobin A1c Calcium Total Bilirubin AST ALT Alkaline Phosphatase Ammonia Total Creatine Kinase 66 CK-MB (Mass) 1.62 Troponin I 0.2590 H* C-React Prot High Sens NT-Pro-B Natriuret Pep Total Protein Albumin Globulin Albumin/Globulin Ratio Free T4 TSH 3rd Generation Urine Color Yellow Urine Clarity Hazy Urine pH 6.0 Ur Specific [place] 1.013 Urine Protein 3+ H Urine Glucose (UA) 1+ Urine Ketones Negative Urine Blood Negative Urine Nitrate Negative Urine Bilirubin Negative Urine Urobilinogen Normal Ur Leukocyte Esterase 1+ H Urine WBC (Auto) 7 H Urine RBC (Auto) 1 Ur Squamous Epith Cells 7 H Urine Bacteria Rare Hyaline Casts 0-2 12/08/18 12/08/18 12/08/18 06:49 06:50 07:20 WBC RBC Hgb Hct MCV MCH MCHC RDW Plt Count MPV Neut % (Auto) Lymph % (Auto) Harmon % (Auto) Eos % (Auto) Baso % (Auto) Neut # (Auto) Lymph # (Auto) Harmon # (Auto) Eos # (Auto) Baso # (Auto) ESR Sodium Potassium Chloride Carbon Dioxide Anion Gap BUN Creatinine Est GFR ( Amer) Est GFR (Non-Af Amer) POC Glucose (mg/dL) 47 L 46 L 101 Random Glucose Hemoglobin A1c Calcium Total Bilirubin AST ALT Alkaline Phosphatase Ammonia Total Creatine Kinase CK-MB (Mass) Troponin I C-React Prot High Sens NT-Pro-B Natriuret Pep Total Protein Albumin Globulin Albumin/Globulin Ratio Free T4 TSH 3rd Generation Urine Color Urine Clarity Urine pH Ur Specific [place] Urine Protein Urine Glucose (UA) Urine Ketones Urine Blood Urine Nitrate Urine Bilirubin Urine Urobilinogen Ur Leukocyte Esterase Urine WBC (Auto) Urine RBC (Auto) Ur Squamous Epith Cells Urine Bacteria Hyaline Casts 12/08/18 12/08/18 12/08/18 09:20 09:20 09:20 WBC 7.0 RBC 3.54 L Hgb 9.6 L Hct 30.7 L MCV 86.8 MCH 27.1 MCHC 31.2 L RDW 18.8 H Plt Count 281 MPV 9.1 Neut % (Auto) 70.5 Lymph % (Auto) 15.9 L Harmon % (Auto) 11.1 H Eos % (Auto) 1.9 Baso % (Auto) 0.6 Neut # (Auto) 4.9 Lymph # (Auto) 1.1 Harmon # (Auto) 0.8 Eos # (Auto) 0.1 Baso # (Auto) 0.0 ESR Sodium 136 Potassium 4.6 Chloride 97 L Carbon Dioxide 25 Anion Gap 19 BUN 45 H Creatinine 4.1 H Est GFR ( Amer) 13 Est GFR (Non-Af Amer) 10 POC Glucose (mg/dL) Random Glucose 192 H D Hemoglobin A1c Calcium 9.4 Total Bilirubin 0.7 AST 34 ALT 16 Alkaline Phosphatase 148 H Ammonia Total Creatine Kinase 65 CK-MB (Mass) Troponin I 0.1780 H* C-React Prot High Sens > 15.00 H NT-Pro-B Natriuret Pep 52704 H Total Protein 7.1 Albumin 4.3 Globulin 2.8 Albumin/Globulin Ratio 1.5 Free T4 1.40 TSH 3rd Generation < 0.02 L Urine Color Urine Clarity Urine pH Ur Specific [place] Urine Protein Urine Glucose (UA) Urine Ketones Urine Blood Urine Nitrate Urine Bilirubin Urine Urobilinogen Ur Leukocyte Esterase Urine WBC (Auto) Urine RBC (Auto) Ur Squamous Epith Cells Urine Bacteria Hyaline Casts 12/08/18 12/08/18 12/08/18 09:20 09:20 09:20 WBC RBC Hgb Hct MCV MCH MCHC RDW Plt Count MPV Neut % (Auto) Lymph % (Auto) Harmon % (Auto) Eos % (Auto) Baso % (Auto) Neut # (Auto) Lymph # (Auto) Harmon # (Auto) Eos # (Auto) Baso # (Auto) ESR 60 H Sodium Potassium Chloride Carbon Dioxide Anion Gap BUN Creatinine Est GFR ( Amer) Est GFR (Non-Af Amer) POC Glucose (mg/dL) Random Glucose Hemoglobin A1c 8.6 H D Calcium Total Bilirubin AST ALT Alkaline Phosphatase Ammonia 14 Total Creatine Kinase CK-MB (Mass) Troponin I C-React Prot High Sens NT-Pro-B Natriuret Pep Total Protein Albumin Globulin Albumin/Globulin Ratio Free T4 TSH 3rd Generation Urine Color Urine Clarity Urine pH Ur Specific [place] Urine Protein Urine Glucose (UA) Urine Ketones Urine Blood Urine Nitrate Urine Bilirubin Urine Urobilinogen Ur Leukocyte Esterase Urine WBC (Auto) Urine RBC (Auto) Ur Squamous Epith Cells Urine Bacteria Hyaline Casts 12/08/18 12/08/18 11:27 15:49 WBC RBC Hgb Hct MCV MCH MCHC RDW Plt Count MPV Neut % (Auto) Lymph % (Auto) Harmon % (Auto) Eos % (Auto) Baso % (Auto) Neut # (Auto) Lymph # (Auto) Harmon # (Auto) Eos # (Auto) Baso # (Auto) ESR Sodium Potassium Chloride Carbon Dioxide Anion Gap BUN Creatinine Est GFR ( Amer) Est GFR (Non-Af Amer) POC Glucose (mg/dL) 260 H 292 H Random Glucose Hemoglobin A1c Calcium Total Bilirubin AST ALT Alkaline Phosphatase Ammonia Total Creatine Kinase CK-MB (Mass) Troponin I C-React Prot High Sens NT-Pro-B Natriuret Pep Total Protein Albumin Globulin Albumin/Globulin Ratio Free T4 TSH 3rd Generation Urine Color Urine Clarity Urine pH Ur Specific [place] Urine Protein Urine Glucose (UA) Urine Ketones Urine Blood Urine Nitrate Urine Bilirubin Urine Urobilinogen Ur Leukocyte Esterase Urine WBC (Auto) Urine RBC (Auto) Ur Squamous Epith Cells Urine Bacteria Hyaline Casts
[2018-12-08] MEDS: (Lantus) Insulin Glargine, Recombinant SC SCH (20:09)
--- NOTE | 2018-12-08 22:30 | CP.PCM.PN ---
Subjective - Date & Time of Evaluation Date of Evaluation: 12/08/18 Time of Evaluation: 13:25 - Subjective Subjective: patient presently undergoing dialysis treatment. Objective - Vital Signs/Intake and Output Vital Signs (last 24 hours): Temp Pulse Resp BP Pulse Ox 97.6 F 104 H 20 113/65 96 12/08/18 16:09 12/08/18 16:09 12/08/18 16:09 12/08/18 16:09 12/08/18 20:00 - Medications Medications: Current Medications Albuterol Sulfate (Albuterol 0.042% Inhal Luisa (1.25mg/3ml) Ud) 1.25 mg INH RQ6 [facility] Last Admin: 12/08/18 21:17 Dose: 1.25 mg Aspirin (Aspirin Chewable) 81 mg PO DAILY [facility] Last Admin: 12/08/18 09:21 Dose: 81 mg Clopidogrel Bisulfate (Plavix) 75 mg PO DAILY [facility] Last Admin: 12/08/18 09:21 Dose: 75 mg Donepezil HCl (Aricept) 10 mg PO HS [facility] Last Admin: 12/08/18 21:28 Dose: 10 mg Enalapril Maleate (Vasotec) 10 mg PO DAILY [facility] Last Admin: 12/08/18 14:05 Dose: Not Given Famotidine (Pepcid) 20 mg PO DAILY [facility] Last Admin: 12/08/18 09:21 Dose: 20 mg Heparin Sodium (Porcine) (Heparin) 5,000 units SC Q12H [facility] Last Admin: 12/08/18 20:06 Dose: 5,000 units Hydralazine HCl (Apresoline) 25 mg PO TID [facility] Last Admin: 12/08/18 20:07 Dose: 25 mg Insulin Aspart (Novolog) 0 unit SC ACHS [facility]; Protocol Last Admin: 12/08/18 21:10 Dose: Not Given Insulin Aspart (Novolog) 14 unit SC BIDAC [facility] Last Admin: 12/08/18 20:08 Dose: 14 units Insulin Glargine (Lantus) 20 unit SC 1800 [facility] Last Admin: 12/08/18 20:09 Dose: 20 unit Levetiracetam (Keppra) 500 mg PO BID [facility] Last Admin: 12/08/18 20:09 Dose: 500 mg Montelukast Sodium (Singulair) 10 mg PO DAILY [facility] Last Admin: 12/08/18 09:21 Dose: 10 mg Quetiapine Fumarate (Seroquel) 25 mg PO DAILY [facility] Last Admin: 12/08/18 09:21 Dose: 25 mg Rosuvastatin Calcium (Crestor) 5 mg PO HS [facility] Last Admin: 12/08/18 21:28 Dose: 5 mg Sevelamer Carbonate (Renvela) 800 mg PO TIDCC [facility] Last Admin: 12/08/18 20:09 Dose: 800 mg Vitamin B Complex/Vit C/Folic Acid (Nephro-Marina) 1 tab PO DAILY [facility] Last Admin: 12/08/18 09:22 Dose: 1 tab - Labs Labs: 12/08/18 09:20 12/08/18 09:20 PT 12.0 SECONDS (9.7-12.2) 12/07/18 09:45 INR 1.1 12/07/18 09:45 APTT 36 SECONDS (21-34) H 12/07/18 09:45 Assessment and Plan (1) Chronic congestive heart failure Status: Acute (2) ESRD on hemodialysis Status: Acute (3) Elevated troponin I level Status: Acute (4) Hypertension Status: Acute (5) Type 2 diabetes mellitus with diabetic nephropathy Status: Acute
--- NOTE | 2018-12-08 22:31 | CARD ---
APPROVED REPORT Date of service: 12/07/2018 EKG Measurement Heart [id number] <Conclusion> Sinus tachycardia Possible Left atrial enlargement Left anterior fascicular block Left ventricular hypertrophy Cannot rule out Septal infarct, age undetermined Abnormal ECG
--- NOTE | 2018-12-08 23:05 | CP.PCM.CON ---
History of Present Illness - History of Present Illness History of Present Illness: REASONS FOR CONSULT : ESRD ON HD M W F ANEMIA OF CKD PT WAS SEEN AND EXAMINED IN THE HD UNIT PT WITH KERA AND TRACY DINERO .. CAME IN WITH CHEST PAIN AND SOB 83-year-old female with end-stage renal disease and diabetes mellitus comes to the [facility] emergency room complaining of chest pain, shortness of breath and frontal headache for the past 2 days. patient was delfin luated in the ER and found to have a pro BNT of 36,000 and elevated troponin level. Patient was advised admission for treatment. Arrangements were immediately made for a dialysis treatment. patient has had numerous admissions for uncontrolled diabetes mellitus, coronary insufficiency, shoulder dis location, and seizure disorder. Past Patient History - Infectious Disease Hx of Infectious Diseases: None - Tetanus Immunizations Tetanus Immunization: Unknown, Up to Date - Past Medical History & Family History Past Medical History?: Yes - Past Social History Smoking Status: Never Smoked Chewing Tobacco Use: No Cigar Use: No Alcohol: None Drugs: Denies Home Situation {Lives}: Alone - CARDIAC Hx Cardia Arrhythmia: Yes Hx Congestive Heart Failure: Yes Hx Hypercholesterolemia: Yes Hx Hypertension: Yes - PULMONARY Hx Asthma: Yes Hx Bronchitis: Yes Hx Chronic Obstructive Pulmonary Disease (COPD): Yes Hx Emphysema: Yes - NEUROLOGICAL Hx Dementia: Yes Hx Migraine: Yes Hx Transient Ischemic Attacks (TIA): Yes - HEENT Hx HEENT Problems: Yes Hx Blind: Yes (Left eye.) - RENAL Hx Chronic Kidney Disease: Yes - ENDOCRINE/METABOLIC Hx Endocrine Disorders: Yes Hx Diabetes Mellitus Type 2: Yes - INTEGUMENTARY Hx Dermatological Problems: Yes Hx Cellulitis: Yes Hx Eczema: Yes - MUSCULOSKELETAL/RHEUMATOLOGICAL Hx Arthritis: Yes Hx Fractures: Yes - GASTROINTESTINAL Hx Gastrointestinal Disorders: Yes Hx Gastroesophageal Reflux: Yes Hx Hemorrhoids: Yes - GENITOURINARY/GYNECOLOGICAL Hx Genitourinary Disorders: Yes Hx Urinary Tract Infection: Yes - PSYCHIATRIC Hx Anxiety: Yes Hx Depression: Yes Hx Substance Use: No - SURGICAL HISTORY Hx Surgeries: Yes Hx Arteriovenous Shunt: Yes (right arm) - ANESTHESIA Hx Anesthesia: Yes Hx Anesthesia Reactions: No Hx Malignant Hyperthermia: No Meds Allergies/Adverse Reactions: Allergies Allergy/AdvReac Type Severity Reaction Status Date / Time No Known Allergies Allergy Verified 12/07/18 08:59 - Medications Medications: Current Medications Albuterol Sulfate (Albuterol 0.042% Inhal Luisa (1.25mg/3ml) Ud) 1.25 mg INH RQ6 [facility] Last Admin: 12/08/18 21:17 Dose: 1.25 mg Aspirin (Aspirin Chewable) 81 mg PO DAILY [facility] Last Admin: 12/08/18 09:21 Dose: 81 mg Clopidogrel Bisulfate (Plavix) 75 mg PO DAILY [facility] Last Admin: 12/08/18 09:21 Dose: 75 mg Donepezil HCl (Aricept) 10 mg PO HS [facility] Last Admin: 12/08/18 21:28 Dose: 10 mg Enalapril Maleate (Vasotec) 10 mg PO DAILY [facility] Last Admin: 12/08/18 14:05 Dose: Not Given Famotidine (Pepcid) 20 mg PO DAILY [facility] Last Admin: 12/08/18 09:21 Dose: 20 mg Heparin Sodium (Porcine) (Heparin) 5,000 units SC Q12H [facility] Last Admin: 12/08/18 20:06 Dose: 5,000 units Hydralazine HCl (Apresoline) 25 mg PO TID [facility] Last Admin: 12/08/18 20:07 Dose: 25 mg Insulin Aspart (Novolog) 0 unit SC ACHS [facility]; Protocol Last Admin: 12/08/18 21:10 Dose: Not Given Insulin Aspart (Novolog) 14 unit SC BIDAC [facility] Last Admin: 12/08/18 20:08 Dose: 14 units Insulin Glargine (Lantus) 20 unit SC 1800 [facility] Last Admin: 12/08/18 20:09 Dose: 20 unit Levetiracetam (Keppra) 500 mg PO BID [facility] Last Admin: 12/08/18 20:09 Dose: 500 mg Montelukast Sodium (Singulair) 10 mg PO DAILY [facility] Last Admin: 12/08/18 09:21 Dose: 10 mg Quetiapine Fumarate (Seroquel) 25 mg PO DAILY [facility] Last Admin: 12/08/18 09:21 Dose: 25 mg Rosuvastatin Calcium (Crestor) 5 mg PO HS [facility] Last Admin: 12/08/18 21:28 Dose: 5 mg Sevelamer Carbonate (Renvela) 800 mg PO TIDCC [facility] Last Admin: 12/08/18 20:09 Dose: 800 mg Vitamin B Complex/Vit C/Folic Acid (Nephro-Marina) 1 tab PO DAILY [facility] Last Admin: 12/08/18 09:22 Dose: 1 tab Results - Vital Signs Recent Vital Signs: Last Vital Signs Temp 97.6 F 12/08/18 16:09 Pulse 104 H 12/08/18 16:09 Resp 20 12/08/18 16:09 BP 113/65 12/08/18 16:09 Pulse Ox 96 12/08/18 20:00 - Labs Result Diagrams: 12/08/18 09:20 12/08/18 09:20 Labs: Laboratory Results - last 24 hr 12/07/18 12/08/18 12/08/18 22:58 06:49 06:50 WBC RBC Hgb Hct MCV MCH MCHC RDW Plt Count MPV Neut % (Auto) Lymph % (Auto) Stewart % (Auto) Eos % (Auto) Baso % (Auto) Neut # (Auto) Lymph # (Auto) Stewart # (Auto) Eos # (Auto) Baso # (Auto) ESR Sodium Potassium Chloride Carbon Dioxide Anion Gap BUN Creatinine Est GFR ( Amer) Est GFR (Non-Af Amer) POC Glucose (mg/dL) 47 L 46 L Random Glucose Hemoglobin A1c Calcium Total Bilirubin AST ALT Alkaline Phosphatase Ammonia Total Creatine Kinase Troponin I C-React Prot High Sens NT-Pro-B Natriuret Pep Total Protein Albumin Globulin Albumin/Globulin Ratio Free T4 TSH 3rd Generation Urine Color Yellow Urine Clarity Hazy Urine pH 6.0 Ur Specific Riva 1.013 Urine Protein 3+ H Urine Glucose (UA) 1+ Urine Ketones Negative Urine Blood Negative Urine Nitrate Negative Urine Bilirubin Negative Urine Urobilinogen Normal Ur Leukocyte Esterase 1+ H Urine WBC (Auto) 7 H Urine RBC (Auto) 1 Ur Squamous Epith Cells 7 H Urine Bacteria Rare Hyaline Casts 0-2 12/08/18 12/08/18 12/08/18 07:20 09:20 09:20 WBC 7.0 RBC 3.54 L Hgb 9.6 L Hct 30.7 L MCV 86.8 MCH 27.1 MCHC 31.2 L RDW 18.8 H Plt Count 281 MPV 9.1 Neut % (Auto) 70.5 Lymph % (Auto) 15.9 L Stewart % (Auto) 11.1 H Eos % (Auto) 1.9 Baso % (Auto) 0.6 Neut # (Auto) 4.9 Lymph # (Auto) 1.1 Stewart # (Auto) 0.8 Eos # (Auto) 0.1 Baso # (Auto) 0.0 ESR Sodium 136 Potassium 4.6 Chloride 97 L Carbon Dioxide 25 Anion Gap 19 BUN 45 H Creatinine 4.1 H Est GFR ( Amer) 13 Est GFR (Non-Af Amer) 10 POC Glucose (mg/dL) 101 Random Glucose 192 H D Hemoglobin A1c Calcium 9.4 Total Bilirubin 0.7 AST 34 ALT 16 Alkaline Phosphatase 148 H Ammonia Total Creatine Kinase 65 Troponin I 0.1780 H* C-React Prot High Sens NT-Pro-B Natriuret Pep 49009 H Total Protein 7.1 Albumin 4.3 Globulin 2.8 Albumin/Globulin Ratio 1.5 Free T4 TSH 3rd Generation Urine Color Urine Clarity Urine pH Ur Specific Riva Urine Protein Urine Glucose (UA) Urine Ketones Urine Blood Urine Nitrate Urine Bilirubin Urine Urobilinogen Ur Leukocyte Esterase Urine WBC (Auto) Urine RBC (Auto) Ur Squamous Epith Cells Urine Bacteria Hyaline Casts 12/08/18 12/08/18 12/08/18 09:20 09:20 09:20 WBC RBC Hgb Hct MCV MCH MCHC RDW Plt Count MPV Neut % (Auto) Lymph % (Auto) Stewart % (Auto) Eos % (Auto) Baso % (Auto) Neut # (Auto) Lymph # (Auto) Stewart # (Auto) Eos # (Auto) Baso # (Auto) ESR 60 H Sodium Potassium Chloride Carbon Dioxide Anion Gap BUN Creatinine Est GFR ( Amer) Est GFR (Non-Af Amer) POC Glucose (mg/dL) Random Glucose Hemoglobin A1c Calcium Total Bilirubin AST ALT Alkaline Phosphatase Ammonia 14 Total Creatine Kinase Troponin I C-React Prot High Sens > 15.00 H NT-Pro-B Natriuret Pep Total Protein Albumin Globulin Albumin/Globulin Ratio Free T4 1.40 TSH 3rd Generation < 0.02 L Urine Color Urine Clarity Urine pH Ur Specific Riva Urine Protein Urine Glucose (UA) Urine Ketones Urine Blood Urine Nitrate Urine Bilirubin Urine Urobilinogen Ur Leukocyte Esterase Urine WBC (Auto) Urine RBC (Auto) Ur Squamous Epith Cells Urine Bacteria Hyaline Casts 12/08/18 12/08/18 12/08/18 09:20 11:27 15:49 WBC RBC Hgb Hct MCV MCH MCHC RDW Plt Count MPV Neut % (Auto) Lymph % (Auto) Stewart % (Auto) Eos % (Auto) Baso % (Auto) Neut # (Auto) Lymph # (Auto) Stewart # (Auto) Eos # (Auto) Baso # (Auto) ESR Sodium Potassium Chloride Carbon Dioxide Anion Gap BUN Creatinine Est GFR ( Amer) Est GFR (Non-Af Amer) POC Glucose (mg/dL) 260 H 292 H Random Glucose Hemoglobin A1c 8.6 H D Calcium Total Bilirubin AST ALT Alkaline Phosphatase Ammonia Total Creatine Kinase Troponin I C-React Prot High Sens NT-Pro-B Natriuret Pep Total Protein Albumin Globulin Albumin/Globulin Ratio Free T4 TSH 3rd Generation Urine Color Urine Clarity Urine pH Ur Specific Riva Urine Protein Urine Glucose (UA) Urine Ketones Urine Blood Urine Nitrate Urine Bilirubin Urine Urobilinogen Ur Leukocyte Esterase Urine WBC (Auto) Urine RBC (Auto) Ur Squamous Epith Cells Urine Bacteria Hyaline Casts 12/08/18 20:58 WBC RBC Hgb Hct MCV MCH MCHC RDW Plt Count MPV Neut % (Auto) Lymph % (Auto) Stewart % (Auto) Eos % (Auto) Baso % (Auto) Neut # (Auto) Lymph # (Auto) Stewart # (Auto) Eos # (Auto) Baso # (Auto) ESR Sodium Potassium Chloride Carbon Dioxide Anion Gap BUN Creatinine Est GFR ( Amer) Est GFR (Non-Af Amer) POC Glucose (mg/dL) 198 H Random Glucose Hemoglobin A1c Calcium Total Bilirubin AST ALT Alkaline Phosphatase Ammonia Total Creatine Kinase Troponin I C-React Prot High Sens NT-Pro-B Natriuret Pep Total Protein Albumin Globulin Albumin/Globulin Ratio Free T4 TSH 3rd Generation Urine Color Urine Clarity Urine pH Ur Specific Riva Urine Protein Urine Glucose (UA) Urine Ketones Urine Blood Urine Nitrate Urine Bilirubin Urine Urobilinogen Ur Leukocyte Esterase Urine WBC (Auto) Urine RBC (Auto) Ur Squamous Epith Cells Urine Bacteria Hyaline Casts Assessment & Plan - Assessment and Plan (Free Text) Assessment: ESRD ON HD M W F .. SEEN ON HER HD ANEMIA OF CKD .. GIVEN EPO ON HD + VENOFER DM HTN C/P R/O NSTEMI MMP P : HD TODAY AND M W F C/O CURRENT CARE C/O PRESENT MANAGEMENT - Date & Time Date: 12/08/18 Time: 15:00
--- NOTE | 2018-12-08 23:39 | CP.PCM.CON ---
History of Present Illness - History of Present Illness History of Present Illness: 83 years old female was brought to the ED at [facility] complaining of shortness of breath, headache for the past 2 days. She is known to have an IDDM, a hypertension, an ESRD on HD, a senile dementia. She denies any nausea, vomiting, chest pain. In the ED, a CXR revealed mild venous congestion with pleural effusion. A CT scan of the head showed no hemorrhage, no acute stroke. Serum Pro-BNP= 34,700. Serum TNI: 0.259 , 0.175 ECG: sinus tachycardia, with LVH and poor R wave progression in leads V1, V2, V3, unchanged from previous ECG's. A recent echo revealed a normal systolic LV function with diastolic dysfunction. She underwent HD with improvement of SOB and headache. Review of Systems - Constitutional Constitutional: Headache - Cardiovascular Cardiovascular: Dyspnea - Respiratory Respiratory: Dyspnea - Neurological Neurological: Headaches Past Patient History - Infectious Disease Hx of Infectious Diseases: None - Tetanus Immunizations Tetanus Immunization: Unknown, Up to Date - Past Medical History & Family History Past Medical History?: Yes - Past Social History Smoking Status: Never Smoked Chewing Tobacco Use: No Cigar Use: No Alcohol: None Drugs: Denies Home Situation {Lives}: Alone - CARDIAC Hx Cardia Arrhythmia: Yes Hx Congestive Heart Failure: Yes Hx Hypercholesterolemia: Yes Hx Hypertension: Yes - PULMONARY Hx Asthma: Yes Hx Bronchitis: Yes Hx Chronic Obstructive Pulmonary Disease (COPD): Yes Hx Emphysema: Yes - NEUROLOGICAL Hx Dementia: Yes Hx Migraine: Yes Hx Transient Ischemic Attacks (TIA): Yes - HEENT Hx HEENT Problems: Yes Hx Blind: Yes (Left eye.) - RENAL Hx Chronic Kidney Disease: Yes - ENDOCRINE/METABOLIC Hx Endocrine Disorders: Yes Hx Diabetes Mellitus Type 2: Yes - INTEGUMENTARY Hx Dermatological Problems: Yes Hx Cellulitis: Yes Hx Eczema: Yes - MUSCULOSKELETAL/RHEUMATOLOGICAL Hx Arthritis: Yes Hx Fractures: Yes - GASTROINTESTINAL Hx Gastrointestinal Disorders: Yes Hx Gastroesophageal Reflux: Yes Hx Hemorrhoids: Yes - GENITOURINARY/GYNECOLOGICAL Hx Genitourinary Disorders: Yes Hx Urinary Tract Infection: Yes - PSYCHIATRIC Hx Anxiety: Yes Hx Depression: Yes Hx Substance Use: No - SURGICAL HISTORY Hx Surgeries: Yes Hx Arteriovenous Shunt: Yes (right arm) - ANESTHESIA Hx Anesthesia: Yes Hx Anesthesia Reactions: No Hx Malignant Hyperthermia: No Meds Allergies/Adverse Reactions: Allergies Allergy/AdvReac Type Severity Reaction Status Date / Time No Known Allergies Allergy Verified 12/07/18 08:59 - Medications Medications: Current Medications Albuterol Sulfate (Albuterol 0.042% Inhal Luisa (1.25mg/3ml) Ud) 1.25 mg INH RQ6 [facility] Last Admin: 12/08/18 21:17 Dose: 1.25 mg Aspirin (Aspirin Chewable) 81 mg PO DAILY [facility] Last Admin: 12/08/18 09:21 Dose: 81 mg Clopidogrel Bisulfate (Plavix) 75 mg PO DAILY [facility] Last Admin: 12/08/18 09:21 Dose: 75 mg Donepezil HCl (Aricept) 10 mg PO HS [facility] Last Admin: 12/08/18 21:28 Dose: 10 mg Enalapril Maleate (Vasotec) 10 mg PO DAILY [facility] Last Admin: 12/08/18 14:05 Dose: Not Given Famotidine (Pepcid) 20 mg PO DAILY [facility] Last Admin: 12/08/18 09:21 Dose: 20 mg Heparin Sodium (Porcine) (Heparin) 5,000 units SC Q12H [facility] Last Admin: 12/08/18 20:06 Dose: 5,000 units Hydralazine HCl (Apresoline) 25 mg PO TID [facility] Last Admin: 12/08/18 20:07 Dose: 25 mg Insulin Aspart (Novolog) 0 unit SC ACHS [facility]; Protocol Last Admin: 12/08/18 21:10 Dose: Not Given Insulin Aspart (Novolog) 14 unit SC BIDAC [facility] Last Admin: 12/08/18 20:08 Dose: 14 units Insulin Glargine (Lantus) 20 unit SC 1800 [facility] Last Admin: 12/08/18 20:09 Dose: 20 unit Levetiracetam (Keppra) 500 mg PO BID [facility] Last Admin: 12/08/18 20:09 Dose: 500 mg Montelukast Sodium (Singulair) 10 mg PO DAILY [facility] Last Admin: 12/08/18 09:21 Dose: 10 mg Quetiapine Fumarate (Seroquel) 25 mg PO DAILY [facility] Last Admin: 12/08/18 09:21 Dose: 25 mg Rosuvastatin Calcium (Crestor) 5 mg PO HS [facility] Last Admin: 12/08/18 21:28 Dose: 5 mg Sevelamer Carbonate (Renvela) 800 mg PO TIDCC [facility] Last Admin: 12/08/18 20:09 Dose: 800 mg Vitamin B Complex/Vit C/Folic Acid (Nephro-Marina) 1 tab PO DAILY [facility] Last Admin: 12/08/18 09:22 Dose: 1 tab Physical Exam - Constitutional Appears: No Acute Distress, Chronically Ill - Head Exam Head Exam: NORMOCEPHALIC - Eye Exam Eye Exam: Normal appearance - ENT Exam ENT Exam: Normal Exam - Neck Exam Neck exam: Positive for: Normal Inspection - Respiratory Exam Respiratory Exam: Clear to Auscultation Bilateral, NORMAL BREATHING PATTERN - Cardiovascular Exam Cardiovascular Exam: REGULAR RHYTHM - GI/Abdominal Exam GI & Abdominal Exam: Normal Bowel Sounds, Soft - Rectal Exam Rectal Exam: Deferred - Extremities Exam Extremities exam: Positive for: normal inspection - Back Exam Back exam: NORMAL INSPECTION - Neurological Exam Neurological exam: Alert, Oriented x3 - Psychiatric Exam Psychiatric exam: Anxious - Skin Skin Exam: Dry, Intact, Normal Color, Warm Results - Vital Signs Recent Vital Signs: Last Vital Signs Temp 97.6 F 12/08/18 16:09 Pulse 104 H 12/08/18 16:09 Resp 20 12/08/18 16:09 BP 113/65 12/08/18 16:09 Pulse Ox 96 12/08/18 20:00 - Labs Result Diagrams: 12/08/18 09:20 12/08/18 09:20 Labs: Laboratory Results - last 24 hr 12/08/18 12/08/18 12/08/18 06:49 06:50 07:20 WBC RBC Hgb Hct MCV MCH MCHC RDW Plt Count MPV Neut % (Auto) Lymph % (Auto) Stephenson % (Auto) Eos % (Auto) Baso % (Auto) Neut # (Auto) Lymph # (Auto) Stephenson # (Auto) Eos # (Auto) Baso # (Auto) ESR Sodium Potassium Chloride Carbon Dioxide Anion Gap BUN Creatinine Est GFR ( Amer) Est GFR (Non-Af Amer) POC Glucose (mg/dL) 47 L 46 L 101 Random Glucose Hemoglobin A1c Calcium Total Bilirubin AST ALT Alkaline Phosphatase Ammonia Total Creatine Kinase Troponin I C-React Prot High Sens NT-Pro-B Natriuret Pep Total Protein Albumin Globulin Albumin/Globulin Ratio Free T4 TSH 3rd Generation 12/08/18 12/08/18 12/08/18 09:20 09:20 09:20 WBC 7.0 RBC 3.54 L Hgb 9.6 L Hct 30.7 L MCV 86.8 MCH 27.1 MCHC 31.2 L RDW 18.8 H Plt Count 281 MPV 9.1 Neut % (Auto) 70.5 Lymph % (Auto) 15.9 L Stephenson % (Auto) 11.1 H Eos % (Auto) 1.9 Baso % (Auto) 0.6 Neut # (Auto) 4.9 Lymph # (Auto) 1.1 Stephenson # (Auto) 0.8 Eos # (Auto) 0.1 Baso # (Auto) 0.0 ESR Sodium 136 Potassium 4.6 Chloride 97 L Carbon Dioxide 25 Anion Gap 19 BUN 45 H Creatinine 4.1 H Est GFR ( Amer) 13 Est GFR (Non-Af Amer) 10 POC Glucose (mg/dL) Random Glucose 192 H D Hemoglobin A1c Calcium 9.4 Total Bilirubin 0.7 AST 34 ALT 16 Alkaline Phosphatase 148 H Ammonia Total Creatine Kinase 65 Troponin I 0.1780 H* C-React Prot High Sens > 15.00 H NT-Pro-B Natriuret Pep 75740 H Total Protein 7.1 Albumin 4.3 Globulin 2.8 Albumin/Globulin Ratio 1.5 Free T4 1.40 TSH 3rd Generation < 0.02 L 12/08/18 12/08/18 12/08/18 09:20 09:20 09:20 WBC RBC Hgb Hct MCV MCH MCHC RDW Plt Count MPV Neut % (Auto) Lymph % (Auto) Stephenson % (Auto) Eos % (Auto) Baso % (Auto) Neut # (Auto) Lymph # (Auto) Stephenson # (Auto) Eos # (Auto) Baso # (Auto) ESR 60 H Sodium Potassium Chloride Carbon Dioxide Anion Gap BUN Creatinine Est GFR ( Amer) Est GFR (Non-Af Amer) POC Glucose (mg/dL) Random Glucose Hemoglobin A1c 8.6 H D Calcium Total Bilirubin AST ALT Alkaline Phosphatase Ammonia 14 Total Creatine Kinase Troponin I C-React Prot High Sens NT-Pro-B Natriuret Pep Total Protein Albumin Globulin Albumin/Globulin Ratio Free T4 TSH 3rd Generation 12/08/18 12/08/18 12/08/18 11:27 15:49 20:58 WBC RBC Hgb Hct MCV MCH MCHC RDW Plt Count MPV Neut % (Auto) Lymph % (Auto) Stephenson % (Auto) Eos % (Auto) Baso % (Auto) Neut # (Auto) Lymph # (Auto) Stephenson # (Auto) Eos # (Auto) Baso # (Auto) ESR Sodium Potassium Chloride Carbon Dioxide Anion Gap BUN Creatinine Est GFR ( Amer) Est GFR (Non-Af Amer) POC Glucose (mg/dL) 260 H 292 H 198 H Random Glucose Hemoglobin A1c Calcium Total Bilirubin AST ALT Alkaline Phosphatase Ammonia Total Creatine Kinase Troponin I C-React Prot High Sens NT-Pro-B Natriuret Pep Total Protein Albumin Globulin Albumin/Globulin Ratio Free T4 TSH 3rd Generation Assessment & Plan (1) Acute on chronic heart failure Assessment and Plan: Due to fluid overload. Needs HD as per Nephrologists. Status: Acute (2) Elevated troponin I level Assessment and Plan: Probably secondary to ESRD, since there is no chest pain, no change in ECG. Status: Acute (3) Uncontrolled insulin dependent diabetes mellitus Status: Acute (4) Hypertension Status: Acute
[2018-12-09] MEDS: Albuterol 0.042% Inhal Sol (1.25 mg/3 mL) UD INH SCH ×4 (01:41→19:30)
--- NOTE | 2018-12-09 05:13 | CON ---
DATE: 12/08/2018 LOCATION: Room 556, bed B. ATTENDING PHYSICIAN: Valdez Mccracken MD REASON FOR CONSULTATION: Headache. CHIEF COMPLAINT: The patient was brought into [facility] with a history of headache following dialysis. From neurological point of view, I was called in to evaluate her for further management. HISTORY OF PRESENT ILLNESS: Ms. Yeni Prater is an 83-year-old moderately built, right handed, Citizen Of [place] speaking female presenting with headache following dialysis. This headache is diffuse in nature. However, she does not have a headache at present. The headache not associating with visual or bulbar dysfunction. No history of fever. No history of jaw claudication. PAST MEDICAL HISTORY: Anxiety; arthritis; asthma; bronchitis; cardiac arrhythmia; CHF; COPD; dementia; depression; type 2 diabetes; emphysema; fracture; hypertension; dyslipidemia; migraine; end-stage renal disease, on dialysis. REVIEW OF SYSTEMS: A 12-point system being reviewed. From neuro, headache. MEDICATIONS: Hydralazine, albuterol, Aricept, aspirin, Crestor, heparin, Keppra, Lantus insulin, NovoLog, Pepcid, Renvela, Vasotec. PHYSICAL EXAMINATION: VITAL SIGNS: Blood pressure 113/65, mean artery pressure 81, respiratory rate 18, temperature afebrile. NECK: Supple. No carotid bruits. HEART: Sounds regular. CHEST: Bilateral air entry. EXTREMITIES: Trace edema. NEUROLOGIC EXAMINATION: Mental status examination; she is awake, alert and oriented to person, place and time. Speech is clear. Naming, repetition, fluency, comprehension all within normal. Cranial nerve examination, visual field intact. Pupils reactive. Extraocular movement normal. No nystagmus. No facial sensory deficit. No facial asymmetry. Hearing is normal. Tongue is midline. Good gag. Motor examination, mild sensory tremor noted on outstretched hand with eyes closed. Deep tendon reflexes are absent throughout. Plantars are downgoing. Sensory examination, distal sensory motor neuropathy. Gait, broad based gait. Examination of the temporal artery is dilated temporal artery without any tenderness or appearance on palpation. CONCLUSION: On reviewing her medical history from her as well as from the medical records and my neurological examination, it shows headache which is not lateralizing any focality at present. Considering her age and the clinical history, this is probably dysequilibrium syndrome or fluid imbalance. However, vasculitis workup to be done. Her lab, blood workup, WBC 7, hemoglobin 9.6, hematocrit 30.7, platelet 281. Sodium 136, potassium 4.6, chloride 97, bicarbonate 45, glucose 292, 3+ proteinuria, 1+ esterase and few epithelial cells. CT of the head being reviewed, no acute pathology is noted. RECOMMENDATIONS: Blood workup as per the order symptomatically for her headache. Continue hemodialysis. The patient will be followed closely with you. Nnamdi Choudhary MD
[2018-12-09 07:38] LABS: BASO # 0.1 K/uL (0.0-0.2); BASO % 0.9 % (0.0-2.0); EOS # 0.3 K/uL (0.0-0.7); EOS % 5.3 % (0.0-4.0); HEMOGLOBIN 9.5 g/dL (11.0-16.0); LYMPH # 1.7 K/uL (1.0-4.3); MEAN CELL VOLUME 86.2 fL (81.0-99.0); MEAN CORPUSCULAR HEMOGLOBIN 27.1 pg (27.0-31.0); MEAN CORPUSCULAR HGB CONC 31.4 g/dL (33.0-37.0); MEAN PLATELET VOLUME 9.1 fL (7.2-11.7); NEUT # 2.9 K/uL (1.8-7.0); NEUT % 48.8 % (50.0-75.0); NRBC % 0.3 % (0.0-2.0); RBC 3.51 Mil/uL (3.80-5.20); RED CELL DISTRIBUTION WIDTH 18.8 % (11.5-14.5)
[2018-12-09 08:23] LABS: ALB/GLOB RATIO 1.3 (1.0-2.1); ALBUMIN 3.7 g/dL (3.5-5.0); CALCIUM 9.3 mg/dl (8.6-10.4)
[2018-12-09] MEDS: (Novolog) Insulin Aspart, Recombinant 100 u/ml 10 ml vial SC SCH ×6 (08:25→21:26)
[2018-12-09 08:44] LABS: TROPONIN I 0.114 ng/mL (0.00-0.120)
[2018-12-09] MEDS: Multivitamin Vitamin B Complex (Nephro-Vite) Tab PO SCH (09:35)
--- NOTE | 2018-12-09 14:06 | RAD ---
Date of service: 12/08/2018 HISTORY: SOB COMPARISON: 12/07/2018 TECHNIQUE: Chest PA and lateral FINDINGS: LUNGS: Lung volumes lower limits of normal. Prior pulmonary venous congestion appears less now than before. PLEURA: No significant pleural effusion identified. No pneumothorax apparent. CARDIOVASCULAR: There is faint presence of aortic atherosclerotic calcification on x-ray. Cardiomegaly-similar prior pulmonary venous congestion appears less now than before. Right brachiocephalic venous stent re-noted. Central dialysis catheter appearance a position similar. OSSEOUS STRUCTURES: Thoracic spondylosis. Bilateral shoulder arthrosis. VISUALIZED UPPER ABDOMEN: Normal. OTHER FINDINGS: None. IMPRESSION: Interval improvement in prior pulmonary venous congestion. Mild residual pulmonary venous congestion still present Other findings as above.
--- NOTE | 2018-12-09 17:25 | CARD ---
APPROVED REPORT Date of service: 12/08/2018 EKG Measurement Heart [id number] <Conclusion> Sinus tachycardia with premature atrial complexes Possible Left atrial enlargement Left anterior fascicular block Left ventricular hypertrophy Cannot rule out Septal infarct, age undetermined T wave abnormality, consider lateral ischemia Abnormal ECG
--- NOTE | 2018-12-09 19:16 | CP.PCM.PN ---
Subjective - Date & Time of Evaluation Date of Evaluation: 12/09/18 Time of Evaluation: 15:00 - Subjective Subjective: SEEN ON RENAL F/U FEELS MUCH BETTER ON HD M W F Objective - Vital Signs/Intake and Output Vital Signs (last 24 hours): Temp Pulse Resp BP Pulse Ox 97.8 F 83 20 125/66 99 12/09/18 16:00 12/09/18 16:00 12/09/18 16:00 12/09/18 16:00 12/09/18 16:00 Intake and Output: 12/09/18 12/10/18 18:59 06:59 Intake Total 800 Balance 800 - Medications Medications: Current Medications Albuterol Sulfate (Albuterol 0.042% Inhal Luisa (1.25mg/3ml) Ud) 1.25 mg INH RQ6 [facility] Last Admin: 12/09/18 15:40 Dose: Not Given Aspirin (Aspirin Chewable) 81 mg PO DAILY [facility] Last Admin: 12/09/18 09:35 Dose: 81 mg Clopidogrel Bisulfate (Plavix) 75 mg PO DAILY [facility] Last Admin: 12/09/18 09:35 Dose: 75 mg Donepezil HCl (Aricept) 10 mg PO HS [facility] Last Admin: 12/08/18 21:28 Dose: 10 mg Enalapril Maleate (Vasotec) 10 mg PO DAILY [facility] Last Admin: 12/09/18 09:34 Dose: 10 mg Famotidine (Pepcid) 20 mg PO DAILY [facility] Last Admin: 12/09/18 09:34 Dose: 20 mg Heparin Sodium (Porcine) (Heparin) 5,000 units SC Q12H [facility] Last Admin: 12/09/18 17:46 Dose: 5,000 units Hydralazine HCl (Apresoline) 25 mg PO TID [facility] Last Admin: 12/09/18 17:45 Dose: 25 mg Insulin Aspart (Novolog) 0 unit SC ACHS [facility]; Protocol Last Admin: 12/09/18 16:19 Dose: Not Given Insulin Aspart (Novolog) 14 unit SC BIDAC [facility] Last Admin: 12/09/18 17:46 Dose: 14 units Insulin Glargine (Lantus) 20 unit SC HS [facility] Levetiracetam (Keppra) 500 mg PO BID [facility] Last Admin: 12/09/18 17:45 Dose: 500 mg Montelukast Sodium (Singulair) 10 mg PO DAILY [facility] Last Admin: 12/09/18 09:35 Dose: 10 mg Quetiapine Fumarate (Seroquel) 25 mg PO DAILY [facility] Last Admin: 12/09/18 09:35 Dose: 25 mg Rosuvastatin Calcium (Crestor) 5 mg PO HS [facility] Last Admin: 12/08/18 21:28 Dose: 5 mg Sevelamer Carbonate (Renvela) 800 mg PO TIDCC [facility] Last Admin: 12/09/18 17:45 Dose: 800 mg Vitamin B Complex/Vit C/Folic Acid (Nephro-Marina) 1 tab PO DAILY [facility] Last Admin: 12/09/18 09:35 Dose: 1 tab - Labs Labs: 12/09/18 07:20 12/09/18 07:20 PT 12.0 SECONDS (9.7-12.2) 12/07/18 09:45 INR 1.1 12/07/18 09:45 APTT 36 SECONDS (21-34) H 12/07/18 09:45
[2018-12-09] MEDS ORDERED: (Lantus) Insulin Glargine, Recombinant SC SCH (22:00)
--- NOTE | 2018-12-09 22:53 | CP.PCM.PN ---
Subjective - Date & Time of Evaluation Date of Evaluation: 12/09/18 Time of Evaluation: 13:20 - Subjective Subjective: patient feels much better. She is more alert and has less shortness of breath. Repeat chest x-ray reveals diminished pulmonary congestion. Glucose is under better control today. Patient is scheduled for dialysis in a.m. Objective - Vital Signs/Intake and Output Vital Signs (last 24 hours): Temp Pulse Resp BP Pulse Ox 97.8 F 83 20 125/66 99 12/09/18 16:00 12/09/18 16:00 12/09/18 16:00 12/09/18 16:00 12/09/18 16:00 Intake and Output: 12/09/18 12/10/18 18:59 06:59 Intake Total 800 Balance 800 - Medications Medications: Current Medications Albuterol Sulfate (Albuterol 0.042% Inhal Luisa (1.25mg/3ml) Ud) 1.25 mg INH RQ6 [facility] Last Admin: 12/09/18 19:30 Dose: 1.25 mg Aspirin (Aspirin Chewable) 81 mg PO DAILY [facility] Last Admin: 12/09/18 09:35 Dose: 81 mg Clopidogrel Bisulfate (Plavix) 75 mg PO DAILY [facility] Last Admin: 12/09/18 09:35 Dose: 75 mg Donepezil HCl (Aricept) 10 mg PO HS [facility] Last Admin: 12/09/18 21:38 Dose: 10 mg Enalapril Maleate (Vasotec) 10 mg PO DAILY [facility] Last Admin: 12/09/18 09:34 Dose: 10 mg Famotidine (Pepcid) 20 mg PO DAILY [facility] Last Admin: 12/09/18 09:34 Dose: 20 mg Heparin Sodium (Porcine) (Heparin) 5,000 units SC Q12H [facility] Last Admin: 12/09/18 17:46 Dose: 5,000 units Hydralazine HCl (Apresoline) 25 mg PO TID [facility] Last Admin: 12/09/18 17:45 Dose: 25 mg Insulin Aspart (Novolog) 0 unit SC ACHS [facility]; Protocol Last Admin: 12/09/18 21:26 Dose: Not Given Insulin Aspart (Novolog) 14 unit SC BIDAC [facility] Last Admin: 12/09/18 17:46 Dose: 14 units Insulin Glargine (Lantus) 20 unit SC HS [facility] Last Admin: 12/09/18 21:38 Dose: 20 unit Levetiracetam (Keppra) 500 mg PO BID [facility] Last Admin: 12/09/18 17:45 Dose: 500 mg Montelukast Sodium (Singulair) 10 mg PO DAILY [facility] Last Admin: 12/09/18 09:35 Dose: 10 mg Quetiapine Fumarate (Seroquel) 25 mg PO DAILY [facility] Last Admin: 12/09/18 09:35 Dose: 25 mg Rosuvastatin Calcium (Crestor) 5 mg PO HS [facility] Last Admin: 12/09/18 21:38 Dose: 5 mg Sevelamer Carbonate (Renvela) 800 mg PO TIDCC [facility] Last Admin: 12/09/18 17:45 Dose: 800 mg Vitamin B Complex/Vit C/Folic Acid (Nephro-Marina) 1 tab PO DAILY [facility] Last Admin: 12/09/18 09:35 Dose: 1 tab - Labs Labs: 12/09/18 07:20 12/09/18 07:20 PT 12.0 SECONDS (9.7-12.2) 12/07/18 09:45 INR 1.1 12/07/18 09:45 APTT 36 SECONDS (21-34) H 12/07/18 09:45 - Constitutional Appears: Chronically Ill - Head Exam Head Exam: NORMOCEPHALIC - Eye Exam Eye Exam: Normal appearance Pupil Exam: NORMAL ACCOMODATION - ENT Exam ENT Exam: Normal Exam - Neck Exam Neck Exam: Normal Inspection - Respiratory Exam Respiratory Exam: Decreased Breath Sounds - Cardiovascular Exam Cardiovascular Exam: REGULAR RHYTHM - GI/Abdominal Exam GI & Abdominal Exam: Diminished Bowel Sounds - Rectal Exam Rectal Exam: Deferred - Exam External exam: NORMAL EXTERNAL EXAM - Extremities Exam Extremities Exam: Tenderness - Back Exam Back Exam: NORMAL INSPECTION - Neurological Exam Neurological Exam: Oriented x3 - Psychiatric Exam Psychiatric exam: Depressed - Skin Skin Exam: Dry Assessment and Plan (1) Chronic congestive heart failure Status: Acute (2) ESRD on hemodialysis Status: Acute (3) Elevated troponin I level Status: Acute (4) Hypertension Status: Acute (5) Type 2 diabetes mellitus with diabetic nephropathy Status: Acute
--- NOTE | 2018-12-09 23:05 | CP.PCM.PN ---
Subjective - Date & Time of Evaluation Date of Evaluation: 12/09/18 Time of Evaluation: 16:00 - Subjective Subjective: Patient has no SOB, no chest pain. CXR: less congestion. Serum TNI: normal. Telemetry: RSR. Objective - Vital Signs/Intake and Output Vital Signs (last 24 hours): Temp Pulse Resp BP Pulse Ox 97.8 F 83 20 125/66 99 12/09/18 16:00 12/09/18 16:00 12/09/18 16:00 12/09/18 16:00 12/09/18 16:00 Intake and Output: 12/09/18 12/10/18 18:59 06:59 Intake Total 800 Balance 800 - Medications Medications: Current Medications Albuterol Sulfate (Albuterol 0.042% Inhal Luisa (1.25mg/3ml) Ud) 1.25 mg INH RQ6 [facility] Last Admin: 12/09/18 19:30 Dose: 1.25 mg Aspirin (Aspirin Chewable) 81 mg PO DAILY [facility] Last Admin: 12/09/18 09:35 Dose: 81 mg Clopidogrel Bisulfate (Plavix) 75 mg PO DAILY [facility] Last Admin: 12/09/18 09:35 Dose: 75 mg Donepezil HCl (Aricept) 10 mg PO HS [facility] Last Admin: 12/09/18 21:38 Dose: 10 mg Enalapril Maleate (Vasotec) 10 mg PO DAILY [facility] Last Admin: 12/09/18 09:34 Dose: 10 mg Famotidine (Pepcid) 20 mg PO DAILY [facility] Last Admin: 12/09/18 09:34 Dose: 20 mg Heparin Sodium (Porcine) (Heparin) 5,000 units SC Q12H [facility] Last Admin: 12/09/18 17:46 Dose: 5,000 units Hydralazine HCl (Apresoline) 25 mg PO TID [facility] Last Admin: 12/09/18 17:45 Dose: 25 mg Insulin Aspart (Novolog) 0 unit SC ACHS [facility]; Protocol Last Admin: 12/09/18 21:26 Dose: Not Given Insulin Aspart (Novolog) 14 unit SC BIDAC [facility] Last Admin: 12/09/18 17:46 Dose: 14 units Insulin Glargine (Lantus) 20 unit SC HS [facility] Last Admin: 12/09/18 21:38 Dose: 20 unit Levetiracetam (Keppra) 500 mg PO BID [facility] Last Admin: 12/09/18 17:45 Dose: 500 mg Montelukast Sodium (Singulair) 10 mg PO DAILY [facility] Last Admin: 12/09/18 09:35 Dose: 10 mg Quetiapine Fumarate (Seroquel) 25 mg PO DAILY [facility] Last Admin: 12/09/18 09:35 Dose: 25 mg Rosuvastatin Calcium (Crestor) 5 mg PO HS [facility] Last Admin: 12/09/18 21:38 Dose: 5 mg Sevelamer Carbonate (Renvela) 800 mg PO TIDCC [facility] Last Admin: 12/09/18 17:45 Dose: 800 mg Vitamin B Complex/Vit C/Folic Acid (Nephro-Marina) 1 tab PO DAILY [facility] Last Admin: 12/09/18 09:35 Dose: 1 tab - Labs Labs: 12/09/18 07:20 12/09/18 07:20 PT 12.0 SECONDS (9.7-12.2) 12/07/18 09:45 INR 1.1 12/07/18 09:45 APTT 36 SECONDS (21-34) H 12/07/18 09:45 - Constitutional Appears: No Acute Distress, Chronically Ill - Head Exam Head Exam: NORMAL INSPECTION - Eye Exam Eye Exam: Normal appearance - ENT Exam ENT Exam: Normal Exam - Neck Exam Neck Exam: Normal Inspection - Respiratory Exam Respiratory Exam: Clear to Ausculation Bilateral, NORMAL BREATHING PATTERN - Cardiovascular Exam Cardiovascular Exam: REGULAR RHYTHM - GI/Abdominal Exam GI & Abdominal Exam: Soft, Normal Bowel Sounds - Rectal Exam Rectal Exam: Deferred - Extremities Exam Additional comments: Edema of the right forearm. - Back Exam Back Exam: NORMAL INSPECTION - Neurological Exam Neurological Exam: Alert, Awake, Oriented x3 - Psychiatric Exam Psychiatric exam: Anxious - Skin Skin Exam: Intact Assessment and Plan (1) Acute on chronic heart failure Assessment & Plan: To continue HD as per Nephrologists. Status: Acute (2) Elevated troponin I level Status: Resolved (3) Uncontrolled insulin dependent diabetes mellitus Status: Acute (4) Hypertension Status: Chronic
[2018-12-10] MEDS: Albuterol 0.042% Inhal Sol (1.25 mg/3 mL) UD INH SCH ×3 (01:44→13:35)
--- NOTE | 2018-12-10 07:54 | CON ---
DATE: 12/09/2018 HISTORY OF PRESENT ILLNESS: This is a 55-year-old male with obesity and past history of diabetes mellitus, hypertension, hypertensive cardiovascular disease, cardiac arrhythmias, asthma, emphysema, arthritis; end-stage renal disease, on dialysis regimen; on anticoagulants and vasodilators, now admitted with shortness of breath with no chest pain but she had frontal headache and has had dialysis a day before. He had chest discomfort with raised cardiac enzymes and was seen by the community outreach worker. Because of frontal headache, he was seen by neurologist. There has been no hematemesis, no hemoptysis, no fever, no chills, no seizures, no diarrhea. FAMILY HISTORY: There was no significant family history. SOCIAL HISTORY: She is a nonsmoker. No substance use. ALLERGIES: NO ALLERGIES REPORTED. REVIEW OF SYSTEMS: Systemic interview reveals symptoms as stated above under neurological, cardiorespiratory, GI, and skeletal system. She was reported to have dazed at the time of admission, nausea with no falls, and she complained of shortness of breath and chest discomfort. PHYSICAL EXAMINATION: GENERAL: She is afebrile and is comfortable with no acute distress. VITAL SIGNS: Heart rate 96 per minute, blood pressure 156/64, respirations 20, hemoglobin oxygen saturation 99% on room air. HEENT: Unremarkable. NECK: There is no lymphadenopathy. No thyromegaly. HEART: Regular with variable rate with no gallop rhythm. LUNGS: Diminished breath sounds. Rhonchi present. ABDOMEN: Soft. EXTREMITIES: Legs, bilateral leg edema present. Deep tendon reflexes fair and osteoarthritic changes in the joints . Motor power shows general weakness. LABORATORY DATA: White count of 6000, hemoglobin 9.5, platelet count 276,000, neutrophil of 49, lymphocytes 29, eosinophils only showed 1.9% and subsequent tests showed it to be high at 5.3%. It will be repeated 0.3. Serum sodium 137, potassium 4.1, chloride 101, BUN 46, creatinine 4.1 on admission and now 3.7. Glucose is 214, alkaline phosphatase 144, C-reactive protein 0.178 initially and now 0.114, proBNP is 34,700. Creatine-reactive protein high sensitivity over 15. TSH is baseline at 0.02. showed congestive changes consistent with mild CHF, and catheters placed in the jugular system are seen. IMPRESSION: Respiratory insufficiency, emphysema, chronic obstructive pulmonary disease, history of asthma, arthritis, diabetes mellitus, congestive heart failure, hypertension, cardiac arrhythmias, end-stage renal disease. The patient is on dialysis regimen and history of transient ischemic attack. The patient was seen by neurologist, community outreach worker, and renal specialist. They suggest continue with current medications including bronchodilators, vasodilators, anticoagulants, antidiabetic therapy, and continuous positive airway pressure therapy at night. Francisco Javier Guaman MD
[2018-12-10] MEDS: (Novolog) Insulin Aspart, Recombinant 100 u/ml 10 ml vial SC SCH ×3 (08:35→11:44)
[2018-12-10] MEDS: Multivitamin Vitamin B Complex (Nephro-Vite) Tab PO SCH ×2 (10:41→13:50)
--- NOTE | 2018-12-10 11:14 | PN ---
DATE: 12/10/2018 TIME OF EVALUATION: 06:45 a.m. NEUROLOGICAL PROBLEM: Headache. The patient denies any new complaints. The patient is comfortably sitting in the chair and talking to her roommate. The patient denies any new complaints. No dizziness, ambulates herself without any complaints. Her workup, no suggestion of vasculitis. Her headache is probably related to disequilibrium syndrome. The patient continues her hemodialysis; blood pressure control. The patient definitely need EMG and nerve conduction study that can be done as outpatient to assess her existing neuropathy. The patient will be signed off her neurological followup unless she has any change in neuro status. Please do not hesitate to call me back for neurological followup. Nnamdi Choudhary MD
--- NOTE | 2018-12-10 13:39 | CP.PCM.PN ---
Subjective - Date & Time of Evaluation Date of Evaluation: 12/10/18 Time of Evaluation: 13:39 - Subjective Subjective: PATIENT SEEN AND EXAMINED AT THE BEDSIDE Objective - Vital Signs/Intake and Output Vital Signs (last 24 hours): Temp Pulse Resp BP Pulse Ox 97.7 F 84 16 78/49 L 96 12/10/18 12:20 12/10/18 12:20 12/10/18 12:20 12/10/18 12:20 12/10/18 09:15 - Medications Medications: Current Medications Albuterol Sulfate (Albuterol 0.042% Inhal Luisa (1.25mg/3ml) Ud) 1.25 mg INH RQ6 [facility] Last Admin: 12/10/18 08:30 Dose: Not Given Aspirin (Aspirin Chewable) 81 mg PO DAILY [facility] Last Admin: 12/10/18 10:41 Dose: Not Given Clopidogrel Bisulfate (Plavix) 75 mg PO DAILY [facility] Last Admin: 12/10/18 10:41 Dose: Not Given Donepezil HCl (Aricept) 10 mg PO HS [facility] Last Admin: 12/09/18 21:38 Dose: 10 mg Enalapril Maleate (Vasotec) 10 mg PO DAILY [facility] Last Admin: 12/10/18 10:42 Dose: Not Given Famotidine (Pepcid) 20 mg PO DAILY [facility] Last Admin: 12/10/18 10:41 Dose: Not Given Heparin Sodium (Porcine) (Heparin) 5,000 units SC Q12H [facility] Last Admin: 12/10/18 05:40 Dose: 5,000 units Heparin Sodium (Porcine) (Heparin (For Dialysis)) 4,600 units IVP MWF [facility] Last Admin: 12/10/18 11:34 Dose: 4,600 units Hydralazine HCl (Apresoline) 25 mg PO TID [facility] Last Admin: 12/10/18 10:41 Dose: Not Given Insulin Aspart (Novolog) 0 unit SC ACHS [facility]; Protocol Last Admin: 12/10/18 11:44 Dose: Not Given Insulin Aspart (Novolog) 14 unit SC BIDAC [facility] Last Admin: 12/10/18 08:35 Dose: Not Given Insulin Glargine (Lantus) 20 unit SC HS [facility] Last Admin: 12/09/18 21:38 Dose: 20 unit Levetiracetam (Keppra) 500 mg PO BID [facility] Last Admin: 12/10/18 10:41 Dose: Not Given Montelukast Sodium (Singulair) 10 mg PO DAILY [facility] Last Admin: 12/10/18 10:42 Dose: Not Given Quetiapine Fumarate (Seroquel) 25 mg PO DAILY [facility] Last Admin: 12/10/18 10:42 Dose: Not Given Rosuvastatin Calcium (Crestor) 5 mg PO HS [facility] Last Admin: 12/09/18 21:38 Dose: 5 mg Sevelamer Carbonate (Renvela) 800 mg PO TIDCC [facility] Last Admin: 12/10/18 12:02 Dose: Not Given Vitamin B Complex/Vit C/Folic Acid (Nephro-Marina) 1 tab PO DAILY [facility] Last Admin: 12/10/18 10:41 Dose: Not Given - Labs Labs: 12/09/18 07:20 12/09/18 07:20 PT 12.0 SECONDS (9.7-12.2) 12/07/18 09:45 INR 1.1 12/07/18 09:45 APTT 36 SECONDS (21-34) H 12/07/18 09:45 Assessment and Plan - Assessment and Plan (Free Text) Assessment: FOLLOW UP WITH DR. ARANDA IN HIS OFFICE -----CALL FOR APPOINTMENT CONTINUE HOME MEDICATION ACTIVITY TOLERATED AND HOME W/ SERVICE PER PHYSICAL THERAPY RECOMMENDATION CALL DR ARANDA OR GO TO THE EMERGENCY ROOM IF SYMPTOM RETURN OR WORSENING SEGUIR CON EL DR. ARANDA EN CASAS OFICINA ----- CONVOCATORIA DE NOMBRAMIENTO CONTINUAR MEDICAMENTOS PARA EL HOGAR ACTIVIDAD LEXI TOLERADO Y HOGAR / SERVICIO POR RECOMENDACIN DE TERAPIA FSICA LLAME AL DR. ARANDA O VAYA A LA AKASH DE EMERGENCIA SI EL SNTOMA DEVUELVE O CONSIDERA
[2018-12-10 16:14] VITALS: BP 142/66; PULSE 90; RESP 20; TEMP 97.3; O2SAT 97
--- NOTE | 2018-12-11 22:36 | CP.PCM.DIS ---
Provider - Provider Date of Admission: 12/07/18 11:39 Attending physician: Valdez Aranda MD Consults: 12/07/18 11:36 Nephrology Consult Routine Comment: Consulting Provider: Kanika Diaz Consulting Physician: Kanika Diaz Reason for Consult: dialisys 12/07/18 11:37 Cardiology Consult Routine Comment: Consulting Provider: Efren Mei Consulting Physician: Efren Mei Reason for Consult: CHF 12/07/18 12:49 Physician Consult Routine Comment: Consulting Provider: Nnamdi Choudhary Consulting Physician: Nnamdi Choudhary Reason for Consult: persistant headaches 12/07/18 12:50 Physician Consult Routine Comment: Consulting Provider: Francisco Javier Guaman Consulting Physician: Francisco Javier Guaman Reason for Consult: shortness of breath Time Spent in preparation of Discharge (in minutes): 24 Diagnosis - Discharge Diagnosis (1) Chronic congestive heart failure Status: Acute (2) ESRD on hemodialysis Status: Acute (3) Hypertension Status: Acute Priority: Medium (4) Type 2 diabetes mellitus with diabetic nephropathy Status: Acute Hospital Course - Lab Results Lab Results: Micro Results 12/07/18 10:22 Blood Blood Culture - Preliminary NO GROWTH AFTER 4 DAYS 12/07/18 10:03 Blood Blood Culture - Preliminary NO GROWTH AFTER 4 DAYS 12/07/18 09:06 Urine Random Urine Culture - Final 10-50,000 CFU/ML. MULTIPLE SPECIES. PROBABLE CONTAMINATION. Most Recent Lab Values WBC 6.0 K/uL (4.8-10.8) 12/09/18 07:20 RBC 3.51 Mil/uL (3.80-5.20) L 12/09/18 07:20 Hgb 9.5 g/dL (11.0-16.0) L 12/09/18 07:20 Hct 30.3 % (34.0-47.0) L 12/09/18 07:20 MCV 86.2 fL (81.0-99.0) 12/09/18 07:20 MCH 27.1 pg (27.0-31.0) 12/09/18 07:20 MCHC 31.4 g/dL (33.0-37.0) L 12/09/18 07:20 RDW 18.8 % (11.5-14.5) H 12/09/18 07:20 Plt Count 276 K/uL (130-400) 12/09/18 07:20 MPV 9.1 fL (7.2-11.7) 12/09/18 07:20 Neut % (Auto) 48.8 % (50.0-75.0) L 12/09/18 07:20 Lymph % (Auto) 29.0 % (20.0-40.0) 12/09/18 07:20 [place] % (Auto) 16.0 % (0.0-10.0) H 12/09/18 07:20 Eos % (Auto) 5.3 % (0.0-4.0) H 12/09/18 07:20 Baso % (Auto) 0.9 % (0.0-2.0) 12/09/18 07:20 Neut # (Auto) 2.9 K/uL (1.8-7.0) 12/09/18 07:20 Lymph # (Auto) 1.7 K/uL (1.0-4.3) 12/09/18 07:20 [place] # (Auto) 1.0 K/uL (0.0-0.8) H 12/09/18 07:20 Eos # (Auto) 0.3 K/uL (0.0-0.7) 12/09/18 07:20 Baso # (Auto) 0.1 K/uL (0.0-0.2) 12/09/18 07:20 Neutrophils % (Manual) 81 % (50-75) H 12/07/18 09:22 Lymphocytes % (Manual) 10 % (20-40) L 12/07/18 09:22 Monocytes % (Manual) 9 % (0-10) 12/07/18 09:22 Platelet Estimate Normal (NORMAL) 12/07/18 09:22 Polychromasia Slight 12/07/18 09:22 Hypochromasia (manual) Slight 12/07/18 09:22 Poikilocytosis (manual Slight 12/07/18 09:22 Anisocytosis (manual) Slight 12/07/18 09:22 Microcytosis (manual) Slight 12/07/18 09:22 Macrocytosis (manual) Slight 12/07/18 09:22 Tear Drop Cells Slight 12/07/18 09:22 Ovalocytes Slight 12/07/18 09:22 ESR 60 mm/hr (0-20) H 12/08/18 09:20 PT 12.0 SECONDS (9.7-12.2) 12/07/18 09:45 INR 1.1 12/07/18 09:45 APTT 36 SECONDS (21-34) H 12/07/18 09:45 Sodium 137 mmol/L (132-148) 12/09/18 07:20 Potassium 4.1 mmol/L (3.6-5.2) 12/09/18 07:20 Chloride 101 mmol/L (98-107) 12/09/18 07:20 Carbon Dioxide 26 mmol/L (22-30) 12/09/18 07:20 Anion Gap 15 (10-20) 12/09/18 07:20 BUN 46 mg/dL (7-17) H 12/09/18 07:20 Creatinine 3.7 mg/dL (0.7-1.2) H 12/09/18 07:20 Est GFR ( Amer) 14 12/09/18 07:20 Est GFR (Non-Af Amer) 12 12/09/18 07:20 POC Glucose (mg/dL) 156 mg/dL (65-110) H 12/10/18 11:32 Random Glucose 171 mg/dL (65-105) H 12/09/18 07:20 Hemoglobin A1c 8.6 % (4.2-6.5) H D 12/08/18 09:20 Lactic Acid 0.7 mmol/L (0.7-2.1) 12/07/18 16:00 Calcium 9.3 mg/dl (8.6-10.4) 12/09/18 07:20 Total Bilirubin 0.4 mg/dL (0.2-1.3) 12/09/18 07:20 AST 29 U/L (14-36) 12/09/18 07:20 ALT 19 U/L (9-52) 12/09/18 07:20 Alkaline Phosphatase 144 U/L (38-126) H 12/09/18 07:20 Ammonia 14 umol/L (9-33) 12/08/18 09:20 Total Creatine Kinase 65 U/L (30-135) 12/08/18 09:20 CK-MB (Mass) 1.62 ng/mL (0.0-3.38) 12/07/18 21:19 Troponin I 0.1140 ng/mL (0.00-0.120) 12/09/18 07:20 C-React Prot High Sens > 15.00 mg/L (1.00-3.00) H 12/08/18 09:20 NT-Pro-B Natriuret Pep 72708 pg/mL (0-900) H 12/08/18 09:20 Total Protein 6.5 g/dL (6.3-8.3) 12/09/18 07:20 Albumin 3.7 g/dL (3.5-5.0) 12/09/18 07:20 Globulin 2.8 gm/dL (2.2-3.9) 12/09/18 07:20 Albumin/Globulin Ratio 1.3 (1.0-2.1) 12/09/18 07:20 Free T4 1.40 ng/dL (0.78-2.19) 12/08/18 09:20 TSH 3rd Generation < 0.02 mIU/L (0.46-4.68) L 12/08/18 09:20 Urine Color Yellow (YELLOW) 12/07/18 22:58 Urine Clarity Hazy (Clear) 12/07/18 22:58 Urine pH 6.0 (5.0-8.0) 12/07/18 22:58 Ur Specific [place] 1.013 (1.003-1.030) 12/07/18 22:58 Urine Protein 3+ mg/dL (NEGATIVE) H 12/07/18 22:58 Urine Glucose (UA) 1+ mg/dL (Normal) 12/07/18 22:58 Urine Ketones Negative mg/dL (NEGATIVE) 12/07/18 22:58 Urine Blood Negative (NEGATIVE) 12/07/18 22:58 Urine Nitrate Negative (NEGATIVE) 12/07/18 22:58 Urine Bilirubin Negative (NEGATIVE) 12/07/18 22:58 Urine Urobilinogen Normal mg/dL (0.2-1.0) 12/07/18 22:58 Ur Leukocyte Esterase 1+ John/uL (Negative) H 12/07/18 22:58 Urine WBC (Auto) 7 /hpf (0-5) H 12/07/18 22:58 Urine RBC (Auto) 1 /hpf (0-3) 12/07/18 22:58 Ur Squamous Epith Cells 7 /hpf (0-5) H 12/07/18 22:58 Urine Bacteria Rare (<OCC) 12/07/18 22:58 Hyaline Casts 0-2 /lpf (0-2) 12/07/18 22:58 Serum Immunofixation Not detected (Not Detected) 12/08/18 09:20 Discharge Exam - Head Exam Head Exam: NORMAL INSPECTION - Eye Exam Eye Exam: Normal appearance Pupil Exam: NORMAL ACCOMODATION - ENT Exam ENT Exam: Normal Exam - Neck Exam Neck exam: Normal Inspection - Respiratory Exam Respiratory Exam: Decreased Breath Sounds - Cardiovascular Exam Cardiovascular Exam: REGULAR RHYTHM - GI/Abdominal Exam GI & Abdominal Exam: Normal Bowel Sounds - Rectal Exam Rectal Exam: Deferred - Extremities Exam Extremities exam: tenderness - Back Exam Back exam: paraspinal tenderness - Neurological Exam Neurological exam: Oriented x3 - Psychiatric Exam Psychiatric exam: Depressed - Skin Skin Exam: Dry Discharge Plan - Follow Up Plan Condition: STABLE Disposition: HOME/ ROUTINE Instructions: Heart Failure, Adult (DC), High Blood Pressure (DC), Chronic Kidney Disease (DC), Dialysis and Diet Additional Instructions: FOLLOW UP WITH DR. ARANDA IN HIS OFFICE -----CALL FOR APPOINTMENT CONTINUE HOME MEDICATION ACTIVITY TOLERATED AND HOME W/ SERVICE PER PHYSICAL THERAPY RECOMMENDATION CALL DR ARANDA OR GO TO THE EMERGENCY ROOM IF SYMPTOM RETURN OR WORSENING SEGUIR CON EL DR. ARANDA EN CASAS OFICINA ----- CONVOCATORIA DE NOMBRAMIENTO CONTINUAR MEDICAMENTOS PARA EL HOGAR ACTIVIDAD LEXI TOLERADO Y HOGAR / SERVICIO POR RECOMENDACIN DE TERAPIA FSICA LLAME AL DR. ARANDA O VAYA A LA AKASH DE EMERGENCIA SI EL SNTOMA DEVUELVE O CONSIDERA Referrals: Kanika Diaz MD [Staff Provider] - Nnamdi Choudhary MD [Staff Provider] - Efren Mei MD [Staff Provider] - Francisco Javier Guaman MD [Staff Provider] -
== END 2018-12-10 16:26 | disposition home or self-care (01) ==
LOC: C.ER 08:42 → C.9E 11:39 → C.5S 13:22
PROVIDERS: ADMIT Internal Medicine; ATTEND Internal Medicine
DX: I13.2 Hypertensive heart and chronic kidney disease with heart failure and with stage 5 chronic kidney disease, or end stage renal disease (principal); I50.9 Heart failure, unspecified; D63.1 Anemia in chronic kidney disease; E11.21 Type 2 diabetes mellitus with diabetic nephropathy; E11.22 Type 2 diabetes mellitus with diabetic chronic kidney disease; E78.00 Pure hypercholesterolemia, unspecified; E11.65 Type 2 diabetes mellitus with hyperglycemia; E66.9 Obesity, unspecified; F03.90 Unspecified dementia, unspecified severity, without behavioral disturbance, psychotic disturbance, mood disturbance, and anxiety; J43.9 Emphysema, unspecified; N18.6 End stage renal disease; Z86.73 Personal history of transient ischemic attack (TIA), and cerebral infarction without residual deficits; Z99.2 Dependence on renal dialysis; R51 Headache; G40.909 Epilepsy, unspecified, not intractable, without status epilepticus
CPT/HCPCS: 36415; 70450; 71045; 71046; 80051; 80053; 81001; 82140; 82550; 82948; 83036; 83605; 83880; 84439; 84443; 84484; 85025; 85610; 85651; 85730; 86140; 86334; 87040; 87086; 90970; 93005; 94640; 97116; 97162; 99285; G0257; G0378; G8978; G8979; J1644

== ENCOUNTER 2018-12-20 20:04 | Inpatient (IN) | payer OTHER ==
[2018-12-20 20:04] VITALS: BMI 21.4
[2018-12-20] MEDS ORDERED: Albuterol-Ipratrop 3 mg / 0.5 (3 ml) UD INH STA ×2 (20:10→20:30)
[2018-12-20] MEDS ORDERED: Albuterol-Ipratrop 3 mg / 0.5 (3 ml) UD ONE (20:13)
[2018-12-20] MEDS ORDERED: Piperacillin/Tazobact 3.375 gm 100 ML IVPB STA (20:24)
[2018-12-20] MEDS ORDERED: Vancomycin 1 gm/NS 200 ml 1 GM/200 ML BAG IVPB STA (20:25)
--- NOTE | 2018-12-20 20:30 | C.PDOC ---
History Of Present Illness 83 year old female with Hx of ESRD with M/W/F dialysis, CHF with diastolic dysfunction, diabetes, recent admission, presents for evaluation of epigastric abdominal pain associated with SOB. Last dialysis was yesterday. Patient noted to be febrile on arrival, she is a poor historian, no reported fever at home. Denies other complaints at this time. Time Seen by Provider: 12/20/18 20:06 Chief Complaint (Nursing): Abdominal Pain History Per: Patient History/Exam Limitations: no limitations Onset/Duration Of Symptoms: Hrs Current Symptoms Are (Timing): Still Present Location Of Pain/Discomfort: Epigastric Associated Symptoms: Fever, Other (SOB) Exacerbating Factors: None Alleviating Factors: None Recent travel outside of the [place]: No Abnormal Vaginal Bleeding: No Past Medical History Reviewed: Historical Data, Nursing Documentation, Vital Signs Vital Signs: Last Vital Signs Temp 100.5 F H 12/20/18 20:10 Pulse 90 12/20/18 20:10 Resp 30 H 12/20/18 20:10 BP 188/91 H 12/20/18 20:10 Pulse Ox 91 L 12/20/18 20:10 - Medical History PMH: Anxiety, Arthritis, Asthma, Bronchitis, Cardia Arrhythmia, CHF, COPD, Dementia, Depression, Diabetes (type 2), Emphysema, Fractures, HTN, Hypercholesterolemia, Migraine, End Stage Renal Disease (ESRD), Chronic Kidney Disease, TIA - [facility] Procedures (10/27/18) ASSISTANCE WITH RESPIRATORY VENTILATION, 24-96 HRS, CPAP (11/01/16) BYPASS RIGHT BRACHIAL ARTERY TO UP ARM VEIN, OPEN APPROACH (10/27/18) FLUOROSCOPY OF INFERIOR VENA CAVA, GUIDANCE (10/27/18) FLUOROSCOPY OF SUPERIOR VENA CAVA, GUIDANCE (10/27/18) INSERTION OF INFUSION DEV INTO INF VENA CAVA, PERC APPROACH (10/27/18) INSERTION OF INFUSION DEV INTO SUP VENA CAVA, PERC APPROACH (10/27/18) INSERTION OF VAD INTO CHEST SUBCU/FASCIA, PERC APPROACH (10/27/18) PERFORMANCE OF URINARY FILTRATION, MULTIPLE (12/24/16) PERFORMANCE OF URINARY FILTRATION, SINGLE (11/01/16) REMOVAL OF INFUSION DEVICE FROM LOWER VEIN, PERC APPROACH (10/27/18) ULTRASONOGRAPHY OF LEFT JUGULAR VEINS, GUIDANCE (10/27/18) Family History: States: Unknown Family Hx - Social History Hx Tobacco Use: No Hx Alcohol Use: No Hx Substance Use: No - Immunization History Hx Tetanus Toxoid Vaccination: Yes Hx Influenza Vaccination: Yes Hx Pneumococcal Vaccination: Yes Review Of Systems Constitutional: Positive for: Fever Cardiovascular: Negative for: Chest Pain, Palpitations Respiratory: Positive for: Shortness of Breath Gastrointestinal: Positive for: Abdominal Pain. Negative for: Nausea, Vomiting Genitourinary: Negative for: Dysuria, Hematuria Musculoskeletal: Negative for: Back Pain Neurological: Negative for: Weakness, Numbness Physical Exam - Physical Exam Appears: Non-toxic Skin: Normal Color, Warm, Dry Head: Atraumatic, Normacephalic Eye(s): bilateral: Normal Inspection Oral Mucosa: Moist Neck: Normal, Supple Chest: Other (Left sided dialysis catheter) Cardiovascular: Rhythm Regular Respiratory: Rales (Bilateral), No Rhonchi, No Wheezing Gastrointestinal/Abdominal: Soft, Tenderness (Epigastric), No Guarding, No Rebound Neurological/Psych: Oriented x3, Normal Speech ED Course And Treatment - Laboratory Results Result Diagrams: 12/20/18 20:56 12/20/18 20:56 ECG: Interpreted By Me, Viewed By Mo ECG Rhythm: Sinus Rhythm ECG Interpretation: Normal Interpretation Of ECG: Nonspecific ST/T wave changes Rate From EC O2 Sat by Pulse Oximetry: 91 (Room air) Pulse Ox Interpretation: Abnormal - CT Scan/US CT abd/pel Other Rad Studies (CT/US): Read By Radiologist, Radiology Report Reviewed CT/US Interpretation: EXAM: CT Abdomen and Pelvis with IV contrast. CLINICAL HISTORY: Upper abd pain/ fever PT on dialysis. TECHNIQUE: Axial computed tomography images of the abdomen and pelvis with intravenous contrast. 0.00 mGy-cm. CONTRAST: With; 100MLS VISI 320. COMPARISON: None provided. FINDINGS: LUNG BASES: There are small, right greater than left pleural effusions. The heart is moderately enlarged. There is mild atelectasis near the bases, right greater than left. LIVER: There is diffuse fatty infiltration of liver. GALLBLADDER AND BILE DUCTS: Gallbladder is decompressed. PANCREAS: Pancreas is somewhat atrophic. SPLEEN: Unremarkable. ADRENAL GLANDS: Unremarkable. KIDNEYS, URETERS, AND BLADDER: There is a punctate nonobstructing right mid pole renal calculus. 2.6 cm left lower pole renal cyst. There is some striations and hypodensity of the left nephrogram. Unclear if this represents artifact as there are some other artifactual changes on the CT images nearby. However, if a true finding, this could relate to pyelonephritis. Please correlate clinically and if indicated followup can be obtained. Subcentimeter hypodensity at the midpole of the right kidney is too small to adequately characterize. STOMACH AND BOWEL: There is moderate diverticulosis without convincing evidence for acute diverticulitis. There is constipation the colon. No bowel obstruction. APPENDIX: Normal appendix is present. PERITONEUM: No free fluid. No free air. LYMPH NODES: No l ymphadenopathy is evident. REPRODUCTIVE: Unremarkable as visualized. VASCULATURE: Mild to moderate atherosclerotic calcification is present in the abdominal aorta and branches. BONES: Moderate to severe multilevel degenerative spine changes. Sclerosis and erosions of the vertebral bodies hilaria tible with renal osteodystrophy. Make it more. MISCELLANEOUS: The study is somewhat limited by motion artifact. IMPRESSION: 1. There are small, right greater than left pleural effusions. 2. The heart is moderately enlarged. 4. There is diffuse fatty infiltration of liver. 5. There is some striations and hypodensity of the left nephrogram. Unclear if this represents artifact as there are some other artifactual changes on the CT images nearby. However, if a true finding, this could relate to pyelonephritis. Please correlate clinically and if indicated followup can be obtained. 6. The study is somewhat limited by motion artifact. 7. There is moderate diverticulosis without convincing evidence for acute diverticulitis. 8. There is constipation the colon. 9. Moderate to severe multilevel degenerative spine changes. Sclerosis and erosions of the vertebral bodies compatible with renal osteodystrophy. Make it more. 10. Additional incidental and nonemergent findings as described above. Medical Decision Making Medical Decision Making: ro chf/pna/sepsis, acute abd pathology Plan: * Blood work * EKG * CXR * UA * Zosyn * Vanco * Tylenol pt febrile on arrival, empiric antibiotcs given. no la no leukocytosis. case discussed wtih dr medina. ok to give iv contrast will hd tommorow. cxr pulm vasc congestion. pt sleeping innad abd soft no ttp. ct no acute findigns. kayexalate given. accepted by dr rodriguez. IMPRESSION: 1. There are small, right greater than left pleural effusions. 2. The heart is moderately enlarged. 4. There is diffuse fatty infiltration of liver. 5. There is some striations and hypodensity of the left nephrogram. Unclear if this represents artifact as there are some other artifactual changes on the CT images nearby. However, if a true finding, this could relate to pyelonephritis. Please correlate clinically and if indicated followup can be obtained. 6. The study is somewhat limited by motion artifact. 7. There is moderate diverticulosis without convincing evidence for acute diverticulitis. 8. There is constipation the colon. 9. Moderate to severe multilevel degenerative spine changes. Sclerosis and erosions of the vertebral bodies compatible with renal osteodystrophy. Make it more 10. Additional incidental and nonemergent findings as described above. Disposition - Disposition Disposition: HOSPITALIZED Disposition Time: 17:20 Condition: STABLE - Clinical Impression Clinical Impression: CHF (congestive heart failure), ESRD (end stage renal disease) on dialysis, Abdominal pain - Scribe Statement The provider has reviewed the documentation as recorded by the Scribdre Diaz All medical record entries made by the Scribe were at my direction and personally dictated by me. I have reviewed the chart and agree that the record accurately reflects my personal performance of the history, physical exam, medical decision making, and the department course for this patient. I have also personally directed, reviewed, and agree with the discharge instructions and disposition. Decision To Admit - Pt Status Changed To: Hospital Disposition Of: Inpatient - Admit Certification Admit to Inpatient:: After my assessment, the patient will require hospitalization for at least two midnights. This is because of the severity of symptoms shown, intensity of services needed, and/or the medical risk in this patient being treated as an outpatient. - InPatient: Physician Admission Certification:: needs hd - . Bed Request Type: Telemetry Admitting Physician: Valdez Rodriguez Patient Diagnosis: CHF (congestive heart failure), ESRD (end stage renal disease) on dialysis, Abdominal pain
[2018-12-20 20:54] LABS: VENOUS BLOOD GAS BASE EXCESS 1.1 mmol/L (0.0-2.0); VENOUS BLOOD GAS PCO2 37 mmHg (40-60); VENOUS BLOOD GAS PO2 50 mm/Hg (30-55); VENOUS BLOOD PH 7.44 (7.32-7.43)
[2018-12-20 21:00] LABS: BASO % 0.6 % (0.0-2.0); EOS % 0.4 % (0.0-4.0); HEMOGLOBIN 10.7 g/dL (11.0-16.0); LYMPH % 12.4 % (20.0-40.0); MEAN CORPUSCULAR HEMOGLOBIN 26.5 pg (27.0-31.0); MEAN CORPUSCULAR HGB CONC 30.8 g/dL (33.0-37.0); MEAN PLATELET VOLUME 9.7 fL (7.2-11.7); MONO % 12.2 % (0.0-10.0); NEUT % 74.4 % (50.0-75.0); NRBC % 0.1 % (0.0-2.0); RBC 4.06 Mil/uL (3.80-5.20); RED CELL DISTRIBUTION WIDTH 19.4 % (11.5-14.5)
[2018-12-20] MEDS ORDERED: Piperacillin/Tazobact 3.375 gm 100 ML IVPB ONE (21:05)
[2018-12-20] MEDS ORDERED: Vancomycin 1 GM 1 GM/250 ML BAG IVPB ONE (21:05)
[2018-12-20 21:08] LABS: INR 1.1; PROTHROMBIN TIME 11.6 SECONDS (9.7-12.2)
[2018-12-20 21:23] LABS: TROPONIN I 0.097 ng/mL (0.00-0.120)
[2018-12-20 21:24] LABS: ALB/GLOB RATIO 1.4 (1.0-2.1); ALBUMIN 4.1 g/dL (3.5-5.0); BILIRUBIN,DIRECT 0.4 mg/dL (0.0-0.4); CALCIUM 9.9 mg/dl (8.6-10.4)
[2018-12-20] MEDS ORDERED: Iodixanol 320 MG/ML 100 ML BOTTLE IV ONE (22:08)
[2018-12-20] MEDS ORDERED: Sod Polystyrene Sulf 15 gm/60 ml Susp ONE (22:22)
[2018-12-21] MEDS ORDERED: Albuterol-Ipratrop 3 mg / 0.5 (3 ml) UD INH STA ×3 (03:44→10:01)
--- NOTE | 2018-12-21 06:55 | RAD ---
Chest x-ray single frontal view History: Chest pain. Comparison: 12/08/2018 Findings: Moderate venous congestion. Diffuse increased interstitial lung markings. Consolidative opacification in the right infrahilar region and left lung base. Small left pleural effusion. Enlarged ectatic aorta. Cardiomegaly. Lines, tubes, and stents are in stable position. Degenerative changes in the spine and shoulders. Impression: Moderate venous congestion. Diffuse increased interstitial lung markings. Consolidative opacification in the right infrahilar region and left lung base. Small left pleural effusion. Enlarged ectatic aorta. Cardiomegaly. Lines, tubes, and stents are in stable position.
[2018-12-21 09:46] LABS: ABG ALLEN TEST POS; ARTERIAL BLOOD GAS HCO3 24.2 mmol/L (21-28); ARTERIAL BLOOD GAS HEMOGLOBIN 10.6 g/dL (11.7-17.4); ARTERIAL BLOOD GAS O2 SAT 96.4 % (95-98); ARTERIAL BLOOD GAS PCO2 36 mm/Hg (35-45); ARTERIAL BLOOD GAS PH 7.42 (7.35-7.45); ARTERIAL BLOOD GAS PO2 66 mm/Hg (80-100); ARTERIAL BLOOD GAS TCO2 24.5 mmol/L (22-28)
[2018-12-21] MEDS: levETIRAcetam 100 mg/ml (5ml) Oral Syringe PO SCH ×2 (10:11→18:14)
[2018-12-21] MEDS: Enoxaparin 30 mg Syringe SC SCH (10:13)
--- NOTE | 2018-12-21 10:35 | CT ---
CT abdomen and pelvis HISTORY: Abdominal pain. Fever. COMPARISON: 06/13/2014 TECHNIQUE: Multiple contiguous axial images were performed through the abdomen and pelvis with the use of intravenous contrast. Subsequently, sagittal and coronal reformatted images were obtained. This CT exam was performed using one or more of the following dose reduction techniques: Automated exposure control, adjustment of the mA and/or kV according to patient size, and/or use of iterative reconstruction technique. Findings: Small bilateral pleural effusions. No pericardial effusion. Dense focal nodular consolidation seen within the right middle lobe of the lung with additional focal areas of prominent consolidation seen within the right lower lobe posteriorly. Scattered areas of consolidation at the left lung base with a more focal area of nodular consolidation measuring 1.3 centimeters at the left lower lateral aspect. Prominent liver. Fatty infiltration of the liver. Gallbladder is preserved. Spleen is preserved. Nodular thickening of the adrenal glands. Pancreas is preserved. Small hiatal hernia. Gastric wall thickening which may represent a gastritis. Few mildly distended loops of small bowel seen within the upper mid abdomen. Right kidney: Few peripheral patchy areas of low attenuation seen within the upper and midpole of the right kidney. This is nonspecific and underlying acute pyelonephritis cannot be excluded. Clinical correlation. Additional scattered subcentimeter hypodensities in the right kidney, too small to adequately characterize for example in the upper pole a 7 millimeter hypodensity demonstrates a Hounsfield unit attenuation of 36, indeterminate. Additional scattered hypodensities are seen throughout the right kidney. Left Kidney: Few striated peripheral foci are noted within the upper and midpole of the left kidney, nonspecific. Underlying pyelonephritis cannot be excluded at this level. Clinical correlation. Few scattered low-attenuation lesions seen within the right kidney measuring 1.1 centimeters in the midpole and 2.6 centimeters in the lower pole demonstrating Hounsfield unit attenuations of 4 and 25, indeterminate. Correlation with multiphasic contrast enhanced CT or MR may be helpful for further evaluation if clinically indicated. Urinary bladder is preserved. Bulky heterogeneous and partially calcified uterus with a suggestion of some possible fibroid lesions. Left adnexal calcification measuring up to 6 millimeters. Colonic diverticulosis. Fecal retention in the colon. Mild thickening of the sigmoid colon, nonspecific. Appendix is within normal limits. Few shotty para-aortic and inguinal lymph nodes. Few shotty mesenteric lymph nodes. Atherosclerotic calcification and plaque in the aorta. Degenerative changes in the spine and hips. Scattered lucencies noted throughout the vertebral bodies of the thoracic and lumbar spine, nonspecific. Correlation with bone scan may be helpful if clinically indicated. Impression: 1. Some peripheral scattered areas of low attenuation in both kidneys which may represent underlying acute pyelonephritis. This is nonspecific. Clinical correlation. 2. Bilateral pleural effusions. 3. Moderately enlarged heart. 4. Scattered areas of consolidation within the lung reed as described above. 5. Gastric wall thickening which may represent a gastritis. 6. Few mildly distended loops of small bowel seen within the upper mid abdomen. 7. Bilateral renal low-attenuation lesions. Correlation with multiphasic CT or MR may be helpful for further evaluation if clinically indicated. 8. Bulky heterogeneous and partially calcified uterus with a suggestion of some possible fibroid lesions. Left adnexal calcification measuring up to 6 millimeters. 9. Colonic diverticulosis. Fecal retention in the colon. Mild thickening of the sigmoid colon, nonspecific. 10. Scattered lucencies noted throughout the vertebral bodies of the thoracic and lumbar spine, nonspecific. Correlation with bone scan may be helpful if clinically indicated. Additional findings as above. A preliminary report was generated at 11:32 p.m. on 12/20/[address] Efren Poon from [facility].
[2018-12-21] MEDS: (Novolog) Insulin Aspart, Recombinant 100 u/ml 10 ml vial SC SCH ×4 (12:21→21:46)
--- NOTE | 2018-12-21 13:13 | CP.PCM.HP ---
History of Present Illness - History of Present Illness History of Present Illness: 83-year-old female comes to the [facility] emergency room complaining of severe abdominal pain and fever for the past 24 hours. Patient developed pain following her dialysis treatment. Patient was discharged 2 weeks ago following treatment for chest pain, uncontrolled diabetes mellitus,end-stage renal disease and congestive heart failure. patient has numerous past admissions for uncontrolled diabetes mellitus, degenerative disc disease, hypertension, congestive heart failure, impacted right shoulder fracture, cerebrovascular accident, and peripheral neuropathy. Patient was evaluated by the ER physician. She was found to have an elevated proBNP of 38,000. A CT scan of the abdomen and pelvis demonstrated bilateral pleural effusions, diverticulosis, fatty liver, enlarged heart, degenerative disc disease, calcified uterus and constipation. based on these findiings admission was advised for treatment. Present on Admission - Present on Admission Any Indicators Present on Admission: No History of DVT/PE: No History of Uncontrolled Diabetes: Yes Urinary Catheter: No Decubitus Ulcer Present: No History Surgical Site Infection Following: None Review of Systems - Constitutional Constitutional: Fatigue, Malaise - EENT Nose/Mouth/Throat: Dry Mouth - Cardiovascular Cardiovascular: Dyspnea on Exertion, Palpitations - Gastrointestinal Gastrointestinal: Heartburn - Reproductive: Female Reproductive:Female: Post Menopausal - Musculoskeletal Musculoskeletal: Arthralgias - Integumentary Integumentary: Dry Skin - Neurological Neurological: Numbness, Weakness - Psychiatric Psychiatric: Depression Past Patient History - Infectious Disease Hx of Infectious Diseases: None - Tetanus Immunizations Tetanus Immunization: Unknown, Up to Date - Past Medical History & Family History Past Medical History?: Yes - Past Social History Smoking Status: Never Smoked Chewing Tobacco Use: No Cigar Use: No Alcohol: None Drugs: Denies Home Situation {Lives}: Alone - CARDIAC Hx Cardiac Disorders: Yes Hx Cardia Arrhythmia: Yes Hx Congestive Heart Failure: Yes Hx Hypercholesterolemia: Yes Hx Hypertension: Yes - PULMONARY Hx Respiratory Disorders: Yes Hx Asthma: Yes Hx Bronchitis: Yes Hx Chronic Obstructive Pulmonary Disease (COPD): Yes Hx Emphysema: Yes - NEUROLOGICAL Hx Neurological Disorder: Yes Hx Dementia: Yes Hx Migraine: Yes Hx Transient Ischemic Attacks (TIA): Yes - HEENT Hx HEENT Problems: Yes Hx Blind: Yes (Left eye.) - RENAL Hx Chronic Kidney Disease: Yes Hx Dialysis: Yes Type of Dialysis Access: Rt arm AV shunt Date of Last Dialysis Treatment: 03/16/19 Hx Renal Failure: Yes - ENDOCRINE/METABOLIC Hx Endocrine Disorders: Yes Hx Diabetes Mellitus Type 2: Yes - HEMATOLOGICAL/ONCOLOGICAL Hx Blood Disorders: No - INTEGUMENTARY Hx Dermatological Problems: Yes Hx Cellulitis: Yes Hx Eczema: Yes - MUSCULOSKELETAL/RHEUMATOLOGICAL Hx Musculoskeletal Disorders: Yes Hx Falls: Yes - GASTROINTESTINAL Hx Gastrointestinal Disorders: Yes Hx Gastroesophageal Reflux: Yes Hx Hemorrhoids: Yes - GENITOURINARY/GYNECOLOGICAL Hx Genitourinary Disorders: Yes Hx Urinary Tract Infection: Yes - PSYCHIATRIC Hx Psychophysiologic Disorder: Yes Hx Anxiety: Yes Hx Depression: Yes Hx Substance Use: No - SURGICAL HISTORY Hx Surgeries: Yes Hx Arteriovenous Shunt: Yes (right arm) - ANESTHESIA Hx Anesthesia: Yes Hx Anesthesia Reactions: No Hx Malignant Hyperthermia: No Meds Allergies/Adverse Reactions: Allergies Allergy/AdvReac Type Severity Reaction Status Date / Time No Known Allergies Allergy Verified 12/20/18 20:18 Physical Exam - Constitutional Appears: Chronically Ill - Head Exam Head Exam: NORMOCEPHALIC - Eye Exam Eye Exam: Normal appearance - ENT Exam ENT Exam: Normal Exam - Neck Exam Neck exam: Positive for: Normal Inspection - Respiratory Exam Respiratory Exam: Decreased Breath Sounds - Cardiovascular Exam Cardiovascular Exam: REGULAR RHYTHM - GI/Abdominal Exam GI & Abdominal Exam: Soft - Rectal Exam Rectal Exam: Deferred - Extremities Exam Extremities exam: Positive for: tenderness - Neurological Exam Neurological exam: Oriented x3 - Psychiatric Exam Psychiatric exam: Depressed - Skin Skin Exam: Dry Results - Vital Signs Recent Vital Signs: Last Vital Signs Temp 97.6 F 12/21/18 08:32 Pulse 99 H 12/21/18 08:32 Resp 20 12/21/18 08:32 BP 172/88 H 12/21/18 10:12 Pulse Ox 97 12/21/18 08:32 - Labs Result Diagrams: 12/20/18 20:56 12/20/18 20:56 Labs: Laboratory Results - last 24 hr 12/20/18 12/20/18 12/20/18 20:51 20:56 20:56 WBC 8.0 RBC 4.06 Hgb 10.7 L Hct 34.9 MCV 86.0 MCH 26.5 L MCHC 30.8 L RDW 19.4 H Plt Count 225 MPV 9.7 Neut % (Auto) 74.4 Lymph % (Auto) 12.4 L [place] % (Auto) 12.2 H Eos % (Auto) 0.4 Baso % (Auto) 0.6 Neut # (Auto) 6.0 Lymph # (Auto) 1.0 [place] # (Auto) 1.0 H Eos # (Auto) 0.0 Baso # (Auto) 0.0 PT INR APTT Puncture Site pCO2 pO2 50 HCO3 ABG pH ABG Total CO2 ABG O2 Saturation ABG Base Excess ABG Hemoglobin ABG Carboxyhemoglobin POC ABG HHb (Measured) ABG Methemoglobin Mohinder Test VBG pH 7.44 H VBG pCO2 37 L VBG HCO3 25.5 VBG Total CO2 26.2 VBG O2 Sat (Calc) 87.6 H VBG Base Excess 1.1 VBG Potassium 5.3 H A-a O2 Difference Respiratory Index Hgb O2 Saturation Sodium 137.0 135 Chloride 106.0 100 Glucose 346 H Lactate 1.6 Liter Flow FiO2 Potassium 5.8 H Carbon Dioxide 22 Anion Gap 18 BUN 60 H Creatinine 3.9 H Est GFR ( Amer) 13 Est GFR (Non-Af Amer) 11 POC Glucose (mg/dL) Random Glucose 344 H D Calcium 9.9 Total Bilirubin 0.9 Direct Bilirubin 0.4 AST 49 H D ALT 21 Alkaline Phosphatase 128 H Troponin I 0.0970 NT-Pro-B Natriuret Pep 23920 H Total Protein 7.0 Albumin 4.1 Globulin 2.9 Albumin/Globulin Ratio 1.4 Lipase 61 Venous Blood Potassium 5.3 H Influenza Typ A,B (EIA) 12/20/18 12/20/18 12/21/18 20:56 23:35 02:06 WBC RBC Hgb Hct MCV MCH MCHC RDW Plt Count MPV Neut % (Auto) Lymph % (Auto) [place] % (Auto) Eos % (Auto) Baso % (Auto) Neut # (Auto) Lymph # (Auto) [place] # (Auto) Eos # (Auto) Baso # (Auto) PT 11.6 INR 1.1 APTT 35 H Puncture Site pCO2 pO2 HCO3 ABG pH ABG Total CO2 ABG O2 Saturation ABG Base Excess ABG Hemoglobin ABG Carboxyhemoglobin POC ABG HHb (Measured) ABG Methemoglobin Mohinder Test VBG pH VBG pCO2 VBG HCO3 VBG Total CO2 VBG O2 Sat (Calc) VBG Base Excess VBG Potassium A-a O2 Difference Respiratory Index Hgb O2 Saturation Sodium Chloride Glucose Lactate Liter Flow FiO2 Potassium Carbon Dioxide Anion Gap BUN Creatinine Est GFR ( Amer) Est GFR (Non-Af Amer) POC Glucose (mg/dL) 314 H Random Glucose Calcium Total Bilirubin Direct Bilirubin AST ALT Alkaline Phosphatase Troponin I NT-Pro-B Natriuret Pep Total Protein Albumin Globulin Albumin/Globulin Ratio Lipase Venous Blood Potassium Influenza Typ A,B (EIA) Negative for flu a/b 12/21/18 12/21/18 12/21/18 06:49 09:40 11:10 WBC RBC Hgb Hct MCV MCH MCHC RDW Plt Count MPV Neut % (Auto) Lymph % (Auto) [place] % (Auto) Eos % (Auto) Baso % (Auto) Neut # (Auto) Lymph # (Auto) [place] # (Auto) Eos # (Auto) Baso # (Auto) PT INR APTT Puncture Site Lr pCO2 36 pO2 66 L HCO3 24.2 ABG pH 7.42 ABG Total CO2 24.5 ABG O2 Saturation 96.4 ABG Base Excess -0.8 ABG Hemoglobin 10.6 L ABG Carboxyhemoglobin 2.8 H POC ABG HHb (Measured) 3.5 ABG Methemoglobin 1.2 Mohinder Test Pos VBG pH VBG pCO2 VBG HCO3 VBG Total CO2 VBG O2 Sat (Calc) VBG Base Excess VBG Potassium A-a O2 Difference 117.0 Respiratory Index 1.8 Hgb O2 Saturation 92.5 L Sodium Chloride Glucose Lactate Liter Flow 3.0 FiO2 32.0 Potassium Carbon Dioxide Anion Gap BUN Creatinine Est GFR ( Amer) Est GFR (Non-Af Amer) POC Glucose (mg/dL) 352 H 356 H Random Glucose Calcium Total Bilirubin Direct Bilirubin AST ALT Alkaline Phosphatase Troponin I NT-Pro-B Natriuret Pep Total Protein Albumin Globulin Albumin/Globulin Ratio Lipase Venous Blood Potassium Influenza Typ A,B (EIA) Assessment & Plan (1) Pleural effusion Status: Acute (2) Abdominal pain Status: Acute (3) ESRD (end stage renal disease) on dialysis Status: Chronic Priority: Medium (4) Diabetes mellitus type 2 in nonobese Status: Chronic (5) ESRD (end stage renal disease) Status: Chronic (6) Hypertension Status: Chronic (7) Acute on chronic diastolic CHF (congestive heart failure) Status: Resolved (8) Chest pain Status: Resolved (9) Diverticulosis Status: Acute
[2018-12-21] MEDS ORDERED: Albuterol-Ipratrop 3 mg / 0.5 (3 ml) UD INH SCH (14:00)
[2018-12-21] MEDS ORDERED: Albuterol 0.083% Inhal Sol (2.5 mg/3 mL) UD INH SCH (14:00)
--- NOTE | 2018-12-21 16:54 | US ---
Abdominal ultrasound HISTORY: Renal densities. COMPARISON: CT dated 12/20/2018 TECHNIQUE: Real-time sonography was performed through the abdomen. FINDINGS: Liver: 16.8 centimeters in length. Normal echogenicity. Gallbladder: 2 x 2 x 2 millimeter echogenic foci at the wall of the gallbladder suggestive for a possible polyp/calcified polyp. No gross calculi. Normal wall thickness of 2.7 millimeters. No gross wall edema. Negative sonographic Hansen's sign. Common bile duct measures 4 millimeters, within normal limits. Limited visualization of the pancreas. Spleen measures 7.9 centimeters in length, within normal limits. Visualized aorta and IVC are preserved. Right kidney: 9.9 x 3.6 x 3.7 centimeters. No calculi or hydronephrosis. Midpole hypoechoic cyst measuring 8 x 6 x 8 millimeters. Upper pole hypoechoic cyst measuring 1.1 x 1.0 x 1.1 centimeters. Left Kidney: 9.4 x 4.3 x 4.3 centimeters. No calculi or hydronephrosis. Lower pole hypoechoic cyst with internal septation measuring 2.1 x 2.3 x 2.8 centimeters. Additional midpole hypoechoic cyst measuring 1.6 x 1.3 x 1.5 centimeters. Spleen measures 7.9 centimeters in length, within normal limits. Impression: Bilateral renal cysts as described above. 2 millimeter echogenic foci at the wall of the gallbladder suggestive for possible polyp/calcified polyp versus additional etiology. Normal wall thickness of 2.7 millimeters. No gross calculi. Negative sonographic Hansen's sign. If there is persistent concern for acute pyelonephritis, consider repeat contrast-enhanced CT scan through the abdomen and pelvis. Clinical correlation.
--- NOTE | 2018-12-21 17:44 | CP.PCM.CON ---
History of Present Illness - History of Present Illness History of Present Illness: REASONS FOR CONSULT : ESRD ON HD M W F ELECTROLYTES ABN K 5.6 ] ANEMIA OF CKD ALL EMR REVIEWED .. PT WAS SEEN AND EXAMINED PT IS WELL KNOWN TO ME FROM OFFICE WELL FROM [facility] PT HAS HAD MULTIPLE ADMISSIONS TO FOR HER MMP 83-year-old female comes to the [facility] emergency room complaining of severe abdominal pain and fever for the past 24 hours. Patient developed pain following her dialysis treatment. Patient was discharged 2 weeks ago following treatment for chest pain, uncontrolled diabetes mellitus,end-stage renal disease and congestive heart failure. patient has numerous past admissions for uncontrolled diabetes mellitus, degenerative disc disease, hypertension, congestive heart failure, impacted right shoulder fracture, cerebrovascular accident, and peripheral neuropathy. Patient was evaluated by the ER physician. She was found to have an elevated proBNP of 38,000. A CT scan of the abdomen and pelvis demonstrated bilateral pleural effusions, diverticulosis, fatty liver, enlarged heart, degenerative disc disease, calcified uterus and constipation. based on these findiings admission was advised for treatment. Past Patient History - Infectious Disease Hx of Infectious Diseases: None - Tetanus Immunizations Tetanus Immunization: Unknown, Up to Date - Past Medical History & Family History Past Medical History?: Yes - Past Social History Smoking Status: Never Smoked Chewing Tobacco Use: No Cigar Use: No Alcohol: None Drugs: Denies Home Situation {Lives}: Alone - CARDIAC Hx Cardiac Disorders: Yes Hx Cardia Arrhythmia: Yes Hx Congestive Heart Failure: Yes Hx Hypercholesterolemia: Yes Hx Hypertension: Yes - PULMONARY Hx Respiratory Disorders: Yes Hx Asthma: Yes Hx Bronchitis: Yes Hx Chronic Obstructive Pulmonary Disease (COPD): Yes Hx Emphysema: Yes - NEUROLOGICAL Hx Neurological Disorder: Yes Hx Dementia: Yes Hx Migraine: Yes Hx Transient Ischemic Attacks (TIA): Yes - HEENT Hx HEENT Problems: Yes Hx Blind: Yes (Left eye.) - RENAL Hx Chronic Kidney Disease: Yes Hx Dialysis: Yes Type of Dialysis Access: Rt arm AV shunt Date of Last Dialysis Treatment: 12/20/18 Hx Renal Failure: Yes - ENDOCRINE/METABOLIC Hx Endocrine Disorders: Yes Hx Diabetes Mellitus Type 2: Yes - HEMATOLOGICAL/ONCOLOGICAL Hx Blood Disorders: No - INTEGUMENTARY Hx Dermatological Problems: Yes Hx Cellulitis: Yes Hx Eczema: Yes - MUSCULOSKELETAL/RHEUMATOLOGICAL Hx Musculoskeletal Disorders: Yes Hx Falls: Yes - GASTROINTESTINAL Hx Gastrointestinal Disorders: Yes Hx Gastroesophageal Reflux: Yes Hx Hemorrhoids: Yes - GENITOURINARY/GYNECOLOGICAL Hx Genitourinary Disorders: Yes Hx Urinary Tract Infection: Yes - PSYCHIATRIC Hx Psychophysiologic Disorder: Yes Hx Anxiety: Yes Hx Depression: Yes Hx Substance Use: No - SURGICAL HISTORY Hx Surgeries: Yes Hx Arteriovenous Shunt: Yes (right arm) - ANESTHESIA Hx Anesthesia: Yes Hx Anesthesia Reactions: No Hx Malignant Hyperthermia: No Meds Allergies/Adverse Reactions: Allergies Allergy/AdvReac Type Severity Reaction Status Date / Time No Known Allergies Allergy Verified 12/20/18 20:18 - Medications Medications: Current Medications Albuterol Sulfate (Albuterol 0.042% Inhal Luisa (1.25mg/3ml) Ud) 1.25 mg INH RQ6 PRN PRN Reason: Shortness of Breath Aspirin (Aspirin Chewable) 81 mg PO DAILY [facility] Last Admin: 12/21/18 10:13 Dose: 81 mg Clopidogrel Bisulfate (Plavix) 75 mg PO DAILY [facility] Last Admin: 12/21/18 10:12 Dose: 75 mg Donepezil HCl (Aricept) 10 mg PO [facility] Enalapril Maleate (Vasotec) 10 mg PO DAILY [facility] Last Admin: 12/21/18 10:12 Dose: 10 mg Enoxaparin Sodium (Lovenox) 30 mg SC DAILY [facility] Last Admin: 12/21/18 10:13 Dose: 30 mg Famotidine (Pepcid) 20 mg PO DAILY [facility] Last Admin: 12/21/18 10:12 Dose: 20 mg Home Med (Solifenacin Succinate [Vesicare]) 5 mg PO DAILY [facility] Hydralazine HCl (Apresoline) 25 mg PO TID [facility] Last Admin: 12/21/18 15:08 Dose: 25 mg Insulin Aspart (Novolog) 14 unit SC BIDAC [facility] Insulin Aspart (Novolog) 0 unit SC ACHS [facility]; Protocol Last Admin: 12/21/18 12:21 Dose: 5 units Levetiracetam (Keppra) 500 mg PO BID [facility] Last Admin: 12/21/18 10:11 Dose: 500 mg Losartan Potassium (Cozaar) 50 mg PO DAILY [facility] Last Admin: 12/21/18 10:12 Dose: 50 mg Montelukast Sodium (Singulair) 10 mg PO DAILY [facility] Last Admin: 12/21/18 10:12 Dose: 10 mg Quetiapine Fumarate (Seroquel) 25 mg PO DAILY [facility] Last Admin: 12/21/18 10:12 Dose: 25 mg Rosuvastatin Calcium (Crestor) 5 mg PO HS [facility] Sevelamer Carbonate (Renvela) 800 mg PO TIDCC [facility] Last Admin: 12/21/18 12:27 Dose: 800 mg Vitamin B Complex/Vit C/Folic Acid (Nephro-Marina) 1 tab PO 0800 [facility] Results - Vital Signs Recent Vital Signs: Last Vital Signs Temp 98.0 F 12/21/18 16:00 Pulse 80 12/21/18 17:23 Resp 20 12/21/18 16:00 BP 160/81 H 12/21/18 16:00 Pulse Ox 97 12/21/18 16:00 - Labs Result Diagrams: 12/20/18 20:56 12/20/18 20:56 Labs: Laboratory Results - last 24 hr 12/20/18 12/20/18 12/20/18 20:51 20:56 20:56 WBC 8.0 RBC 4.06 Hgb 10.7 L Hct 34.9 MCV 86.0 MCH 26.5 L MCHC 30.8 L RDW 19.4 H Plt Count 225 MPV 9.7 Neut % (Auto) 74.4 Lymph % (Auto) 12.4 L [place] % (Auto) 12.2 H Eos % (Auto) 0.4 Baso % (Auto) 0.6 Neut # (Auto) 6.0 Lymph # (Auto) 1.0 [place] # (Auto) 1.0 H Eos # (Auto) 0.0 Baso # (Auto) 0.0 PT INR APTT Puncture Site pCO2 pO2 50 HCO3 ABG pH ABG Total CO2 ABG O2 Saturation ABG Base Excess ABG Hemoglobin ABG Carboxyhemoglobin POC ABG HHb (Measured) ABG Methemoglobin Mohinder Test VBG pH 7.44 H VBG pCO2 37 L VBG HCO3 25.5 VBG Total CO2 26.2 VBG O2 Sat (Calc) 87.6 H VBG Base Excess 1.1 VBG Potassium 5.3 H A-a O2 Difference Respiratory Index Hgb O2 Saturation Sodium 137.0 135 Chloride 106.0 100 Glucose 346 H Lactate 1.6 Liter Flow FiO2 Potassium 5.8 H Carbon Dioxide 22 Anion Gap 18 BUN 60 H Creatinine 3.9 H Est GFR ( Amer) 13 Est GFR (Non-Af Amer) 11 POC Glucose (mg/dL) Random Glucose 344 H D Calcium 9.9 Total Bilirubin 0.9 Direct Bilirubin 0.4 AST 49 H D ALT 21 Alkaline Phosphatase 128 H Troponin I 0.0970 NT-Pro-B Natriuret Pep 66850 H Total Protein 7.0 Albumin 4.1 Globulin 2.9 Albumin/Globulin Ratio 1.4 Lipase 61 Venous Blood Potassium 5.3 H Influenza Typ A,B (EIA) 12/20/18 12/20/18 12/21/18 20:56 23:35 02:06 WBC RBC Hgb Hct MCV MCH MCHC RDW Plt Count MPV Neut % (Auto) Lymph % (Auto) [place] % (Auto) Eos % (Auto) Baso % (Auto) Neut # (Auto) Lymph # (Auto) [place] # (Auto) Eos # (Auto) Baso # (Auto) PT 11.6 INR 1.1 APTT 35 H Puncture Site pCO2 pO2 HCO3 ABG pH ABG Total CO2 ABG O2 Saturation ABG Base Excess ABG Hemoglobin ABG Carboxyhemoglobin POC ABG HHb (Measured) ABG Methemoglobin Mohinder Test VBG pH VBG pCO2 VBG HCO3 VBG Total CO2 VBG O2 Sat (Calc) VBG Base Excess VBG Potassium A-a O2 Difference Respiratory Index Hgb O2 Saturation Sodium Chloride Glucose Lactate Liter Flow FiO2 Potassium Carbon Dioxide Anion Gap BUN Creatinine Est GFR ( Amer) Est GFR (Non-Af Amer) POC Glucose (mg/dL) 314 H Random Glucose Calcium Total Bilirubin Direct Bilirubin AST ALT Alkaline Phosphatase Troponin I NT-Pro-B Natriuret Pep Total Protein Albumin Globulin Albumin/Globulin Ratio Lipase Venous Blood Potassium Influenza Typ A,B (EIA) Negative for flu a/b 12/21/18 12/21/18 12/21/18 06:49 09:40 11:10 WBC RBC Hgb Hct MCV MCH MCHC RDW Plt Count MPV Neut % (Auto) Lymph % (Auto) [place] % (Auto) Eos % (Auto) Baso % (Auto) Neut # (Auto) Lymph # (Auto) [place] # (Auto) Eos # (Auto) Baso # (Auto) PT INR APTT Puncture Site Lr pCO2 36 pO2 66 L HCO3 24.2 ABG pH 7.42 ABG Total CO2 24.5 ABG O2 Saturation 96.4 ABG Base Excess -0.8 ABG Hemoglobin 10.6 L ABG Carboxyhemoglobin 2.8 H POC ABG HHb (Measured) 3.5 ABG Methemoglobin 1.2 Mohinder Test Pos VBG pH VBG pCO2 VBG HCO3 VBG Total CO2 VBG O2 Sat (Calc) VBG Base Excess VBG Potassium A-a O2 Difference 117.0 Respiratory Index 1.8 Hgb O2 Saturation 92.5 L Sodium Chloride Glucose Lactate Liter Flow 3.0 FiO2 32.0 Potassium Carbon Dioxide Anion Gap BUN Creatinine Est GFR ( Amer) Est GFR (Non-Af Amer) POC Glucose (mg/dL) 352 H 356 H Random Glucose Calcium Total Bilirubin Direct Bilirubin AST ALT Alkaline Phosphatase Troponin I NT-Pro-B Natriuret Pep Total Protein Albumin Globulin Albumin/Globulin Ratio Lipase Venous Blood Potassium Influenza Typ A,B (EIA) Assessment & Plan - Assessment and Plan (Free Text) Assessment: ESRD ON HS M W F TO BE C/O .. HD IN AM ANEMIA OF CKD .. H/H STABLE ELECTROLYTES ABN .. K 5.8 .. FOR HD IN AM ABDO PAIN AND FEVER .. ON IVAB MMP P : HD IN AM C/O CURRENT CARE C/O PRESENT MANAGEMENT - Date & Time Date: 12/21/18 Time: 15:00
--- NOTE | 2018-12-21 19:06 | CP.PCM.PN ---
Subjective - Date & Time of Evaluation Date of Evaluation: 12/21/18 Time of Evaluation: 16:20 - Subjective Subjective: patient has less abdominal pain. She denies nausea or vomiting. She denies chest pain but has joint pain. Repeat troponin level elevated. EKG possible septal infarct. Cardiology consult requested. Will repeat troponin le zina. Patient schedule for dialysis in a.m. Objective - Vital Signs/Intake and Output Vital Signs (last 24 hours): Temp Pulse Resp BP Pulse Ox 98.0 F 80 20 160/81 H 97 12/21/18 16:00 12/21/18 17:23 12/21/18 16:00 12/21/18 16:00 12/21/18 16:00 - Medications Medications: Current Medications Albuterol Sulfate (Albuterol 0.042% Inhal Luisa (1.25mg/3ml) Ud) 1.25 mg INH RQ6 PRN PRN Reason: Shortness of Breath Aspirin (Aspirin Chewable) 81 mg PO DAILY [facility] Last Admin: 12/21/18 10:13 Dose: 81 mg Clopidogrel Bisulfate (Plavix) 75 mg PO DAILY [facility] Last Admin: 12/21/18 10:12 Dose: 75 mg Donepezil HCl (Aricept) 10 mg PO HS [facility] Enalapril Maleate (Vasotec) 10 mg PO DAILY [facility] Last Admin: 12/21/18 10:12 Dose: 10 mg Enoxaparin Sodium (Lovenox) 30 mg SC DAILY [facility] Last Admin: 12/21/18 10:13 Dose: 30 mg Famotidine (Pepcid) 20 mg PO DAILY [facility] Last Admin: 12/21/18 10:12 Dose: 20 mg Home Med (Solifenacin Succinate [Vesicare]) 5 mg PO DAILY [facility] Hydralazine HCl (Apresoline) 25 mg PO TID [facility] Last Admin: 12/21/18 18:13 Dose: 25 mg Insulin Aspart (Novolog) 14 unit SC BIDAC [facility] Last Admin: 12/21/18 17:00 Dose: 14 u Insulin Aspart (Novolog) 0 unit SC ACHS [facility]; Protocol Last Admin: 12/21/18 16:15 Dose: 3 units Levetiracetam (Keppra) 500 mg PO BID [facility] Last Admin: 12/21/18 18:14 Dose: 500 mg Losartan Potassium (Cozaar) 50 mg PO DAILY [facility] Last Admin: 12/21/18 10:12 Dose: 50 mg Montelukast Sodium (Singulair) 10 mg PO DAILY [facility] Last Admin: 12/21/18 10:12 Dose: 10 mg Quetiapine Fumarate (Seroquel) 25 mg PO DAILY [facility] Last Admin: 12/21/18 10:12 Dose: 25 mg Rosuvastatin Calcium (Crestor) 5 mg PO HS [facility] Sevelamer Carbonate (Renvela) 800 mg PO TIDCC [facility] Last Admin: 12/21/18 17:30 Dose: 800 mg Vitamin B Complex/Vit C/Folic Acid (Nephro-Marina) 1 tab PO 0800 [facility] - Labs Labs: 12/20/18 20:56 12/20/18 20:56 PT 11.6 SECONDS (9.7-12.2) 12/20/18 20:56 INR 1.1 12/20/18 20:56 APTT 35 SECONDS (21-34) H 12/20/18 20:56 - Constitutional Appears: Chronically Ill - Head Exam Head Exam: NORMOCEPHALIC - Eye Exam Eye Exam: Normal appearance Pupil Exam: NORMAL ACCOMODATION - ENT Exam ENT Exam: Normal Exam - Neck Exam Neck Exam: Normal Inspection - Respiratory Exam Respiratory Exam: Decreased Breath Sounds - Cardiovascular Exam Cardiovascular Exam: REGULAR RHYTHM - GI/Abdominal Exam GI & Abdominal Exam: Normal Bowel Sounds - Extremities Exam Extremities Exam: Tenderness - Back Exam Back Exam: NORMAL INSPECTION - Neurological Exam Neurological Exam: Oriented x3 - Psychiatric Exam Psychiatric exam: Flat Affect - Skin Skin Exam: Dry Assessment and Plan (1) Pleural effusion Status: Acute (2) Abdominal pain Status: Acute (3) ESRD (end stage renal disease) on dialysis Status: Chronic (4) Diabetes mellitus type 2 in nonobese Status: Chronic (5) ESRD (end stage renal disease) Status: Chronic (6) Hypertension Status: Chronic (7) Diverticulosis Status: Acute (8) Elevated troponin level Status: Acute
[2018-12-22] MEDS: Albuterol 0.042% Inhal Sol (1.25 mg/3 mL) UD INH PRN (07:50)
[2018-12-22] MEDS: (Novolog) Insulin Aspart, Recombinant 100 u/ml 10 ml vial SC SCH ×6 (07:50→21:52)
[2018-12-22 09:05] LABS: CK-MB 1.35 ng/mL (0.0-3.38); TROPONIN I 0.197 ng/mL (0.00-0.120)
[2018-12-22] MEDS: Multivitamin Vitamin B Complex (Nephro-Vite) Tab PO SCH (09:12)
[2018-12-22] MEDS: Enoxaparin 30 mg Syringe SC SCH (10:31)
[2018-12-22] MEDS: levETIRAcetam 100 mg/ml (5ml) Oral Syringe PO SCH ×2 (10:31→19:23)
--- NOTE | 2018-12-22 17:17 | CARD ---
APPROVED REPORT Date of service: 12/20/2018 EKG Measurement Heart [id number] <Conclusion> Normal sinus rhythm Possible Left atrial enlargement Left axis deviation Septal infarct, age undetermined Abnormal ECG
[2018-12-22 19:08] LABS: BASO % 0.8 % (0.0-2.0); EOS # 0.1 K/uL (0.0-0.7); EOS % 1.6 % (0.0-4.0); HEMOGLOBIN 10.8 g/dL (11.0-16.0); LYMPH % 16.3 % (20.0-40.0); MEAN CORPUSCULAR HEMOGLOBIN 26.7 pg (27.0-31.0); MEAN CORPUSCULAR HGB CONC 31.4 g/dL (33.0-37.0); MEAN PLATELET VOLUME 9.6 fL (7.2-11.7); MONO # 0.8 K/uL (0.0-0.8); MONO % 13.1 % (0.0-10.0); NEUT # 4.2 K/uL (1.8-7.0); NEUT % 68.2 % (50.0-75.0); RBC 4.03 Mil/uL (3.80-5.20); RED CELL DISTRIBUTION WIDTH 19.3 % (11.5-14.5); WHITE BLOOD COUNT 6.2 K/uL (4.8-10.8)
[2018-12-22 20:06] LABS: ALB/GLOB RATIO 1.4 (1.0-2.1); ALBUMIN 4.2 g/dL (3.5-5.0); CALCIUM 9.5 mg/dl (8.6-10.4)
--- NOTE | 2018-12-22 21:33 | CP.PCM.PN ---
Subjective - Date & Time of Evaluation Date of Evaluation: 12/22/18 Time of Evaluation: 15:00 - Subjective Subjective: seen on renal f/u no change Objective - Vital Signs/Intake and Output Vital Signs (last 24 hours): Temp Pulse Resp BP Pulse Ox 99.2 F 92 H 20 171/69 H 95 12/22/18 15:28 12/22/18 15:28 12/22/18 15:28 12/22/18 15:28 12/22/18 15:28 Intake and Output: 12/22/18 12/23/18 18:59 06:59 Intake Total 800 Output Total 3000 Balance -2200 - Medications Medications: Current Medications Albuterol Sulfate (Albuterol 0.042% Inhal Luisa (1.25mg/3ml) Ud) 1.25 mg INH RQ6 PRN PRN Reason: Shortness of Breath Last Admin: 12/22/18 07:50 Dose: 1.25 mg Aspirin (Aspirin Chewable) 81 mg PO DAILY [facility] Last Admin: 12/22/18 10:30 Dose: Not Given Clopidogrel Bisulfate (Plavix) 75 mg PO DAILY [facility] Last Admin: 12/22/18 10:31 Dose: Not Given Donepezil HCl (Aricept) 10 mg PO HS [facility] Last Admin: 12/21/18 21:19 Dose: Not Given Enalapril Maleate (Vasotec) 10 mg PO DAILY [facility] Last Admin: 12/22/18 10:32 Dose: Not Given Enoxaparin Sodium (Lovenox) 30 mg SC DAILY [facility] Last Admin: 12/22/18 10:31 Dose: Not Given Famotidine (Pepcid) 20 mg PO DAILY [facility] Last Admin: 12/22/18 10:31 Dose: Not Given Heparin Sodium (Porcine) (Heparin (For Dialysis)) 4,600 units IVP MWF [facility] Last Admin: 12/22/18 11:48 Dose: 4,600 units Hydralazine HCl (Apresoline) 25 mg PO TID [facility] Last Admin: 12/22/18 19:23 Dose: Not Given Insulin Aspart (Novolog) 14 unit SC BIDAC [facility] Last Admin: 12/22/18 19:28 Dose: Not Given Insulin Aspart (Novolog) 0 unit SC ACHS [facility]; Protocol Last Admin: 12/22/18 19:28 Dose: Not Given Levetiracetam (Keppra) 500 mg PO BID [facility] Last Admin: 12/22/18 19:23 Dose: Not Given Losartan Potassium (Cozaar) 50 mg PO DAILY [facility] Last Admin: 12/22/18 10:31 Dose: Not Given Montelukast Sodium (Singulair) 10 mg PO DAILY [facility] Last Admin: 12/22/18 10:32 Dose: Not Given Quetiapine Fumarate (Seroquel) 25 mg PO DAILY [facility] Last Admin: 12/22/18 10:31 Dose: Not Given Rosuvastatin Calcium (Crestor) 5 mg PO HS [facility] Last Admin: 12/21/18 21:19 Dose: Not Given Sevelamer Carbonate (Renvela) 800 mg PO TIDCC [facility] Last Admin: 12/22/18 19:28 Dose: Not Given Tolterodine Tartrate (Detrol La) 4 mg PO DAILY [facility] Vitamin B Complex/Vit C/Folic Acid (Nephro-Marina) 1 tab PO 0800 [facility] Last Admin: 12/22/18 09:12 Dose: Not Given - Labs Labs: 12/22/18 19:04 12/22/18 19:04 PT 11.6 SECONDS (9.7-12.2) 12/20/18 20:56 INR 1.1 12/20/18 20:56 APTT 35 SECONDS (21-34) H 12/20/18 20:56 Assessment and Plan - Assessment and Plan (Free Text) Plan: c/o current care
--- NOTE | 2018-12-22 22:04 | CP.PCM.PN ---
Subjective - Date & Time of Evaluation Date of Evaluation: 12/22/18 Time of Evaluation: 12:30 - Subjective Subjective: patient in dialysis for routine treatmen. Denies abdominal pain. Alert and responsive. Troponin level still elevated. Cardiology consult pending. We'll continue to monitor troponin level. Objective - Vital Signs/Intake and Output Vital Signs (last 24 hours): Temp Pulse Resp BP Pulse Ox 99.2 F 92 H 20 171/69 H 95 12/22/18 15:28 12/22/18 15:28 12/22/18 15:28 12/22/18 15:28 12/22/18 15:28 Intake and Output: 12/22/18 12/23/18 18:59 06:59 Intake Total 800 Output Total 3000 Balance -2200 - Medications Medications: Current Medications Albuterol Sulfate (Albuterol 0.042% Inhal Luisa (1.25mg/3ml) Ud) 1.25 mg INH RQ6 PRN PRN Reason: Shortness of Breath Last Admin: 12/22/18 07:50 Dose: 1.25 mg Aspirin (Aspirin Chewable) 81 mg PO DAILY [facility] Last Admin: 12/22/18 10:30 Dose: Not Given Clopidogrel Bisulfate (Plavix) 75 mg PO DAILY [facility] Last Admin: 12/22/18 10:31 Dose: Not Given Donepezil HCl (Aricept) 10 mg PO HS [facility] Last Admin: 12/22/18 21:43 Dose: 10 mg Enalapril Maleate (Vasotec) 10 mg PO DAILY [facility] Last Admin: 12/22/18 10:32 Dose: Not Given Enoxaparin Sodium (Lovenox) 30 mg SC DAILY [facility] Last Admin: 12/22/18 10:31 Dose: Not Given Famotidine (Pepcid) 20 mg PO DAILY [facility] Last Admin: 12/22/18 10:31 Dose: Not Given Heparin Sodium (Porcine) (Heparin (For Dialysis)) 4,600 units IVP MWF [facility] Last Admin: 12/22/18 11:48 Dose: 4,600 units Hydralazine HCl (Apresoline) 25 mg PO TID [facility] Last Admin: 12/22/18 19:23 Dose: Not Given Insulin Aspart (Novolog) 14 unit SC BIDAC [facility] Last Admin: 12/22/18 19:28 Dose: Not Given Insulin Aspart (Novolog) 0 unit SC ACHS [facility]; Protocol Last Admin: 12/22/18 21:52 Dose: Not Given Levetiracetam (Keppra) 500 mg PO BID [facility] Last Admin: 12/22/18 19:23 Dose: Not Given Losartan Potassium (Cozaar) 50 mg PO DAILY [facility] Last Admin: 12/22/18 10:31 Dose: Not Given Montelukast Sodium (Singulair) 10 mg PO DAILY [facility] Last Admin: 12/22/18 10:32 Dose: Not Given Quetiapine Fumarate (Seroquel) 25 mg PO DAILY [facility] Last Admin: 12/22/18 10:31 Dose: Not Given Rosuvastatin Calcium (Crestor) 5 mg PO HS [facility] Last Admin: 12/22/18 21:43 Dose: 5 mg Sevelamer Carbonate (Renvela) 800 mg PO TIDCC [facility] Last Admin: 12/22/18 19:28 Dose: Not Given Tolterodine Tartrate (Detrol La) 4 mg PO DAILY [facility] Vitamin B Complex/Vit C/Folic Acid (Nephro-Marina) 1 tab PO 0800 [facility] Last Admin: 12/22/18 09:12 Dose: Not Given - Labs Labs: 12/22/18 19:04 12/22/18 19:04 PT 11.6 SECONDS (9.7-12.2) 12/20/18 20:56 INR 1.1 12/20/18 20:56 APTT 35 SECONDS (21-34) H 12/20/18 20:56 - Constitutional Appears: No Acute Distress - Head Exam Head Exam: NORMOCEPHALIC - Eye Exam Eye Exam: Normal appearance Pupil Exam: NORMAL ACCOMODATION - ENT Exam ENT Exam: Normal Exam - Neck Exam Neck Exam: Normal Inspection - Respiratory Exam Respiratory Exam: Decreased Breath Sounds - Cardiovascular Exam Cardiovascular Exam: REGULAR RHYTHM - GI/Abdominal Exam GI & Abdominal Exam: Normal Bowel Sounds - Extremities Exam Extremities Exam: Tenderness - Back Exam Back Exam: NORMAL INSPECTION - Neurological Exam Neurological Exam: Oriented x3 - Skin Skin Exam: Dry Assessment and Plan (1) Pleural effusion Status: Acute (2) Abdominal pain Status: Acute (3) ESRD (end stage renal disease) on dialysis Status: Chronic (4) Diabetes mellitus type 2 in nonobese Status: Chronic (5) ESRD (end stage renal disease) Status: Chronic (6) Hypertension Status: Chronic (7) Diverticulosis Status: Acute (8) Elevated troponin level Status: Acute
[2018-12-23] MEDS: (Novolog) Insulin Aspart, Recombinant 100 u/ml 10 ml vial SC SCH ×7 (03:35→21:11)
--- NOTE | 2018-12-23 06:26 | CON ---
DATE: 12/22/2018 HISTORY OF PRESENT ILLNESS: This 83-year-old lady with a history of end stage renal disease, hypertension, diabetes on dialysis regimen, history of hypertensive cardiovascular disease and CHF, and dyspepsia, was now admitted with history of complaining of shortness of breath, chest discomfort, and abdominal discomfort and pain. There has been no travel outside or night stays recently. She does not have chills, but has had headaches and general body ache. There were no vomiting, no hemoptysis, but she has slight cough with shortness of breath with no phlegm. There were no seizures. PAST MEDICAL HISTORY: She has past history of diabetes mellitus, arthritis, end stage renal disease on dialysis regimen, CHF, COPD. FAMILY HISTORY: Unremarkable. REVIEW OF SYSTEMS: Systemic review as reported above. There was no seizures. No dysuria. No vomiting, no hemoptysis. She had abdominal pain. PHYSICAL EXAMINATION: GENERAL: The patient is alert and oriented. VITAL SIGNS: Had fever low grade around 99.6 to 100.5 initially on admission but it subsequently subsided. Blood pressure 150/70, pulse 96, respirations 20. HEENT: Unremarkable. No cephalic abnormality. NECK: Supple. Lymph nodes unremarkable. HEART: Regular. LUNGS: Diminished breath sounds over the lung bases, rhonchi decreased. ABDOMEN: Soft. EXTREMITIES: Legs, no edema, except for minimal swelling. Motor power, general weakness. Deep tendon reflexes unremarkable. LABORATORY DATA: ABGs on 32% FiO2 shows pH of 7.42, PCO2 36, PO2 66 and hemoglobin oxygen saturation of 96%. Blood glucose is 120. Troponin 0.15 and they are reported high. DIAGNOSTIC DATA: Chest x-ray shows overall less lordotic fill with soft, mild interstitial infiltrates bilaterally consistent with pulmonary congestion. IMPRESSION: Respiratory insufficiency, hypertensive cardiovascular disease, diabetes mellitus, bronchitis, chronic obstructive pulmonary disease, end-stage renal disease, arthritis. The patient is on dialysis regimen. PLAN: To continue with current medications, including the consultants' opinion. The patient is seen by youth development professional, neurologist, and division field inspector. Continue with prophylactic SVT cover with DVT prophylactic anticoagulants as managed by youth development professional and renal. Francisco Javier Guaman MD
[2018-12-23] MEDS: Multivitamin Vitamin B Complex (Nephro-Vite) Tab PO SCH (08:39)
[2018-12-23] MEDS: levETIRAcetam 100 mg/ml (5ml) Oral Syringe PO SCH ×2 (10:56→17:34)
[2018-12-23] MEDS: Tolterodine 4 mg ER Cap PO SCH (10:57)
[2018-12-23] MEDS: Enoxaparin 30 mg Syringe SC SCH (10:57)
--- NOTE | 2018-12-23 11:17 | CP.PCM.CON ---
History of Present Illness - History of Present Illness History of Present Illness: Palliative consult requested by Doctor Mccracken for goals of care discussion Patient is a 83 yo admitted from home with epigastric pain associated with SOB X 1 day. These happened after the HD. Patient was treated at the hospital just 2 weeks ago for the same symptoms. Information about wetter or not pain was worse with food or with exertion were not available from admission. 911 called and patient brought to ED. CXR was suggestive of moderate venous congestion and CT confirmed B/L pleural effusion. US abdomen suspicious for acute pyelonephritis. ESR 35, TRPI elevated X 2. Patient is being treated symptomatically and HD was continued. BCs results are pending. Patient become more confused since admission and is now in safety watch room. Renal, cardiac and pulmonary consults were called. Patient is still open for few more diagnostic studies. PMH: CVA, ESRD, CHF, DM Soc. Hx: single, lives at home with daughter Fam. Hx; Non significant. Review of Systems - Constitutional Constitutional: Fatigue - EENT Eyes: absent: As Per HPI, Blind Spots, Blurred Vision, Change in Vision, Decreased Night Vision, Diplopia, Discharge, Dry Eye, Exophthalmos, Floaters, Irritation, Itchy Eyes, Loss of Peripheral Vision, Pain, Photophobia, Requires Corrective Lenses, Sees Flashes, Spots in Vision, Tunnel Vision, Other Visual Disturbances, Loss of Vision, Other Ears: absent: As Per HPI, Decreased Hearing, Ear Discharge, Ear Pain, Tinnitus, Abnormal Hearing, Disequilibrium, Dizziness, Other Nose/Mouth/Throat: absent: As Per HPI, Epistaxis, Nasal Congestion, Nasal Discharge, Nasal Obstruction, Nasal Trauma, Nose Pain, Post Nasal Drip, Sinus Pain, Sinus Pressure, Bleeding Gums, Change in Voice, Dental Pain, Dry Mouth, Dysphagia, Halitosis, Hoarsness, Lip Swelling, Mouth Lesions, Mouth Pain, Odynophagia, Sore Throat, Throat Swelling, Tongue Swelling, Facial Pain, Neck Pain, Neck Mass, Other - Breasts Breasts: absent: As Per HPI, Change in Shape, Mass, Pain, Nipple Discharge, Nipple Inversion, Skin Changes, Swelling, Other - Cardiovascular Cardiovascular: absent: As Per HPI, Acrocyanosis, Chest Pain, Chest Pain at Rest, Chest Pain with Activity, Claudication, Diaphoresis, Dyspnea, Dyspnea on Exertion, Edema, Irregular Heart Rhythm, Pain Radiating to Arm/Neck/Jaw, Leg Edema, Leg Ulcers, Lightheadedness, Orthopnea, Palpitations, Paroxysmal Nocturnal Dyspnea, Pedal Edema, Radiating Pain, Rapid Heart Rate, Slow Heart Rate, Syncope, Other - Respiratory Respiratory: Cough - Gastrointestinal Gastrointestinal: absent: As Per HPI, Abdominal Pain, Belching, Bloating, Change in Bowel Habits, Change in Stool Character, Coffee Ground Emesis, Constipation, Cramping, Diarrhea, Dyspepsia, Dysphagia, Early Satiety, Excessive Flatus, Fecal Incontinence, Heartburn, Hematemesis, Hematochezia, Loose Stools, Melena, Nausea, Odynophagia, Temesmus, Vomiting, Other - Genitourinary Additional comments: On HD - Reproductive: Female Reproductive:Female: Post Menopausal - Menstruation Menstruation: Post Menopausal - Musculoskeletal Musculoskeletal: Limited Range of Motion - Integumentary Integumentary: Dry Skin - Neurological Neurological: Weakness - Psychiatric Psychiatric: Confusion - Endocrine Endocrine: Fatigue - Hematologic/Lymphatic Hematologic: absent: As Per HPI, Easy Bleeding, Easy Bruising, Lymphadenopathy, Other Past Patient History - Infectious Disease Hx of Infectious Diseases: None - Tetanus Immunizations Tetanus Immunization: Unknown, Up to Date - Past Medical History & Family History Past Medical History?: Yes - Past Social History Smoking Status: Never Smoked Chewing Tobacco Use: No Cigar Use: No Alcohol: None Drugs: Denies Home Situation {Lives}: Alone - CARDIAC Hx Cardia Arrhythmia: Yes Hx Congestive Heart Failure: Yes Hx Hypercholesterolemia: Yes Hx Hypertension: Yes - PULMONARY Hx Asthma: Yes Hx Bronchitis: Yes Hx Chronic Obstructive Pulmonary Disease (COPD): Yes Hx Emphysema: Yes - NEUROLOGICAL Hx Dementia: Yes Hx Migraine: Yes Hx Transient Ischemic Attacks (TIA): Yes - HEENT Hx HEENT Problems: Yes Hx Blind: Yes (Left eye.) - RENAL Hx Chronic Kidney Disease: Yes - ENDOCRINE/METABOLIC Hx Endocrine Disorders: Yes Hx Diabetes Mellitus Type 2: Yes - INTEGUMENTARY Hx Dermatological Problems: Yes Hx Cellulitis: Yes Hx Eczema: Yes - MUSCULOSKELETAL/RHEUMATOLOGICAL Hx Arthritis: Yes Hx Fractures: Yes - GASTROINTESTINAL Hx Gastrointestinal Disorders: Yes Hx Gastroesophageal Reflux: Yes Hx Hemorrhoids: Yes - GENITOURINARY/GYNECOLOGICAL Hx Genitourinary Disorders: Yes Hx Urinary Tract Infection: Yes - PSYCHIATRIC Hx Anxiety: Yes Hx Depression: Yes Hx Substance Use: No - SURGICAL HISTORY Hx Surgeries: Yes Hx Arteriovenous Shunt: Yes (right arm) - ANESTHESIA Hx Anesthesia: Yes Hx Anesthesia Reactions: No Hx Malignant Hyperthermia: No Meds Allergies/Adverse Reactions: Allergies Allergy/AdvReac Type Severity Reaction Status Date / Time No Known Allergies Allergy Verified 12/20/18 20:18 - Medications Medications: Current Medications Albuterol Sulfate (Albuterol 0.042% Inhal Luisa (1.25mg/3ml) Ud) 1.25 mg INH RQ6 PRN PRN Reason: Shortness of Breath Last Admin: 12/22/18 07:50 Dose: 1.25 mg Aspirin (Aspirin Chewable) 81 mg PO DAILY [facility] Last Admin: 12/22/18 10:30 Dose: Not Given Clopidogrel Bisulfate (Plavix) 75 mg PO DAILY [facility] Last Admin: 12/22/18 10:31 Dose: Not Given Donepezil HCl (Aricept) 10 mg PO HS [facility] Last Admin: 12/22/18 21:43 Dose: 10 mg Enalapril Maleate (Vasotec) 10 mg PO DAILY [facility] Last Admin: 12/22/18 10:32 Dose: Not Given Famotidine (Pepcid) 20 mg PO DAILY [facility] Last Admin: 12/22/18 10:31 Dose: Not Given Heparin Sodium (Porcine) (Heparin (For Dialysis)) 4,600 units IVP MWF [facility] Last Admin: 12/22/18 11:48 Dose: 4,600 units Heparin Sodium (Porcine) (Heparin) 5,000 units SC Q12 [facility] Hydralazine HCl (Apresoline) 25 mg PO TID [facility] Last Admin: 12/22/18 21:30 Dose: 25 mg Insulin Aspart (Novolog) 14 unit SC BIDAC [facility] Last Admin: 12/23/18 08:33 Dose: 14 u Insulin Aspart (Novolog) 0 unit SC ACHS [facility]; Protocol Last Admin: 12/23/18 03:35 Dose: 3 units Levetiracetam (Keppra) 500 mg PO BID [facility] Last Admin: 12/22/18 19:23 Dose: Not Given Losartan Potassium (Cozaar) 50 mg PO DAILY [facility] Last Admin: 12/22/18 10:31 Dose: Not Given Montelukast Sodium (Singulair) 10 mg PO DAILY [facility] Last Admin: 12/22/18 10:32 Dose: Not Given Quetiapine Fumarate (Seroquel) 25 mg PO DAILY [facility] Last Admin: 12/22/18 10:31 Dose: Not Given Rosuvastatin Calcium (Crestor) 5 mg PO HS [facility] Last Admin: 12/22/18 21:43 Dose: 5 mg Sevelamer Carbonate (Renvela) 800 mg PO TIDCC [facility] Last Admin: 12/23/18 08:39 Dose: 800 mg Tolterodine Tartrate (Detrol La) 4 mg PO DAILY [facility] Vitamin B Complex/Vit C/Folic Acid (Nephro-Marina) 1 tab PO 0800 [facility] Last Admin: 12/23/18 08:39 Dose: 1 tab Physical Exam - Constitutional Appears: No Acute Distress, Chronically Ill - Head Exam Head Exam: ATRAUMATIC, NORMAL INSPECTION, NORMOCEPHALIC - Eye Exam Eye Exam: EOMI, Normal appearance, PERRL Pupil Exam: NORMAL ACCOMODATION, PERRL - ENT Exam ENT Exam: Mucous Membranes Moist, Normal Exam - Neck Exam Neck exam: Positive for: Normal Inspection - Respiratory Exam Respiratory Exam: Decreased Breath Sounds, Rhonchi, NORMAL BREATHING PATTERN - Cardiovascular Exam Cardiovascular Exam: Tachycardia, Irregular Rhythm - GI/Abdominal Exam GI & Abdominal Exam: Normal Bowel Sounds, Soft - Rectal Exam Rectal Exam: Deferred - Exam Additional comments: On HD - Extremities Exam Extremities exam: Positive for: normal capillary refill, normal inspection, pedal pulses present - Back Exam Back exam: NORMAL INSPECTION - Neurological Exam Neurological exam: Alert, Altered - Psychiatric Exam Psychiatric exam: Flat Affect - Skin Skin Exam: Dry, Intact, Normal Color, Warm Results - Vital Signs Recent Vital Signs: Last Vital Signs Temp 97.7 F 12/23/18 08:00 Pulse 87 12/23/18 08:00 Resp 20 12/23/18 08:00 BP 180/73 H 12/23/18 08:00 Pulse Ox 97 12/23/18 08:00 - Labs Result Diagrams: 12/22/18 19:04 12/22/18 19:04 Labs: Laboratory Results - last 24 hr 12/22/18 12/22/18 12/22/18 11:50 17:03 19:04 WBC 6.2 RBC 4.03 Hgb 10.8 L Hct 34.3 MCV 85.0 MCH 26.7 L MCHC 31.4 L RDW 19.3 H Plt Count 265 MPV 9.6 Neut % (Auto) 68.2 Lymph % (Auto) 16.3 L [place] % (Auto) 13.1 H Eos % (Auto) 1.6 Baso % (Auto) 0.8 Neut # (Auto) 4.2 Lymph # (Auto) 1.0 [place] # (Auto) 0.8 Eos # (Auto) 0.1 Baso # (Auto) 0.0 Sodium Potassium Chloride Carbon Dioxide Anion Gap BUN Creatinine Est GFR ( Amer) Est GFR (Non-Af Amer) POC Glucose (mg/dL) 126 H 324 H Random Glucose Calcium Total Bilirubin AST ALT Alkaline Phosphatase Total Protein Albumin Globulin Albumin/Globulin Ratio 12/22/18 12/22/18 12/23/18 19:04 21:49 03:27 WBC RBC Hgb Hct MCV MCH MCHC RDW Plt Count MPV Neut % (Auto) Lymph % (Auto) [place] % (Auto) Eos % (Auto) Baso % (Auto) Neut # (Auto) Lymph # (Auto) [place] # (Auto) Eos # (Auto) Baso # (Auto) Sodium 134 Potassium 4.5 Chloride 96 L Carbon Dioxide 27 Anion Gap 15 BUN 40 H Creatinine 3.9 H Est GFR ( Amer) 13 Est GFR (Non-Af Amer) 11 POC Glucose (mg/dL) 320 H 441 H* Random Glucose 323 H Calcium 9.5 Total Bilirubin 1.0 AST 33 ALT 22 Alkaline Phosphatase 147 H Total Protein 7.2 Albumin 4.2 Globulin 3.0 Albumin/Globulin Ratio 1.4 12/23/18 06:39 WBC RBC Hgb Hct MCV MCH MCHC RDW Plt Count MPV Neut % (Auto) Lymph % (Auto) [place] % (Auto) Eos % (Auto) Baso % (Auto) Neut # (Auto) Lymph # (Auto) [place] # (Auto) Eos # (Auto) Baso # (Auto) Sodium Potassium Chloride Carbon Dioxide Anion Gap BUN Creatinine Est GFR ( Amer) Est GFR (Non-Af Amer) POC Glucose (mg/dL) 489 H* Random Glucose Calcium Total Bilirubin AST ALT Alkaline Phosphatase Total Protein Albumin Globulin Albumin/Globulin Ratio Assessment & Plan - Assessment and Plan (Free Text) Assessment: Palliative consult Full Code, there is no Advance directive on chart, PPS 30% I reviewed all medical records, diagnostic studies, examined and interviewed patient in the bed. Patient is alert, tired and sleeps most of the time. I saw patient yesterday right after HD when she was tired to talk to me. This morning I went to see patient again, and she was equally tired and sleepy as yesterday. Patient is repeatedly asking to go home. Skin is dry and intact, poor skin turgor. Breathing is regular, diminished breath sounds, moist productive cough, sputum white. O2Sat 97% 2 L O2, denies SOB HR 79, irregular, denies chest [pain/epigastric pain. Abdomen soft, denies abdominal pain, appetite fair, denies constipation. Hansen sign negative. Patient able to urinate on her own, 300 cc a day documented, denies burning upon urination. Moves all 4 extremities, pedal and radial pulses present. BP 165/74, HR 79, afebrile, ESR 35, Blood sugar 489, patient is on Novolog sliding scale. Goals of care discussed with patient's daughter over the phone as she was not able to come in. I reviewed patient's clinical presentation and elicited daughter's understanding. The daughter stated being worried about her mother being hospitalized so often for the same chronic symptoms. She wishes those symptoms were managed at home rather than at the hospital. I suggested the program for managing CHF patients at home and daughter was happy to hear it. I emailed Jany TOLBERT with patient's data and contact number for the daughter. Doctor Fish made aware as well. Daughter was also worried about her mother's high blood sugar level. She said that her mother is unusually confused yesterday and today and that happens only if there is UTI or high blood sugar. I reassured her those possibilities were going to be looked into it. Code status discussed. Daughter said she had Living Will at home and will bring copy in. As of now she wants all reasonable measures to be applied to support her mother's life. If condition deteriorates than we will further discuss goals of care. Impression * Chronically ill lady with acute SOB relieved on this admission by Neb Tx and HD * Confusion which is new , could be due to UTI * Moist cough * Prolonged hours of sleep * Feeling tired * Hyperglycemia Suggestion * Continue Neb Tx * Continue O2 support * Aspiration precautions * promote deep breathing and cough exercises * Would do urine C&S * Patient would benefice from long acting glucemic control as opposed to Novolog sliding scale. Blood sugar level should be well established before discharge home. Consider Lantus Q HS * Patient needs education on blood sugar control before discharge. If patient unable to return information, please consider some help at home post discharge * Full Code ( daughter will bring in copy of Living Will ) * Consider KATHRINE discharge Palliative care will fallow up with this patient until discharge. Advance care planing 55 min.
--- NOTE | 2018-12-23 14:33 | CT ---
Date of service: 12/23/2018 PROCEDURE: CT HEAD WITHOUT CONTRAST. HISTORY: AMS COMPARISON: Comparison made with prior CT scan of the brain dated 12/07/2018. TECHNIQUE: Axial computed tomography images were obtained through the head/brain without intravenous contrast. Radiation dose: Total exam DLP = 2047.73 mGy-cm. This CT exam was performed using one or more of the following dose reduction techniques: Automated exposure control, adjustment of the mA and/or kV according to patient size, and/or use of iterative reconstruction technique. FINDINGS: Slightly limited motion degraded study. HEMORRHAGE: No acute parenchymal, subarachnoid nor extra-axial hemorrhage. BRAIN: Mild chronic periventricular white matter ischemic changes are again seen. Note that the possibility of a small hyperacute infarct cannot be excluded on this exam. Moderate central volume loss. Vascular calcifications both carotid VENTRICLES: No obstructive hydrocephalus. CALVARIUM: Calvarium intact PARANASAL SINUSES: Unremarkable as visualized. No significant inflammatory changes. MASTOID AIR CELLS: Suspect partial opacification multiple bilateral inferior mastoid air cells. OTHER FINDINGS: Changes of bilateral cataract surgery again noted. IMPRESSION: Slightly limited motion degraded study. No acute intracranial hemorrhage or large acute infarct. Mild chronic white matter ischemic changes. Note the possibility of a small hyperacute infarct not excluded on this study. Moderate central volume loss.
--- NOTE | 2018-12-23 18:43 | CON ---
DATE: 12/23/2018 HISTORY OF PRESENT ILLNESS: This is an 83-year-old female with a past medical history of diabetes, hypertension, degenerative disk disease, congestive heart failure, impacted right shoulder fracture, cerebral vascular accident, and peripheral neuropathy who came to the emergency room complaining of severe abdominal pain and fever for 24 hours. The patient had pain following dialysis treatment. The patient was discharged two weeks ago following treatment of chest pain, uncontrolled diabetes, endstage renal disease, and congestive heart failure. She had numerous admissions in the past for uncontrolled diabetes and also found to have altered mental status. I was called to evaluate the patient. PAST MEDICAL HISTORY: As above. SOCIAL HISTORY: Does not smoke. Does not drink. REVIEW OF SYSTEMS: Negative. PHYSICAL EXAMINATION: HEENT: Normocephalic, atraumatic. NECK: Supple. NEUROLOGICAL: Awake and oriented to self; confused. Following simple commands. Cranial nerves II to XII were tested. Pupils reactive. EOMs intact. Visual reed full. No facial asymmetry. Tongue midline. Motor examination: Spontaneous movements of all extremities noted. Deep tendon reflexes 1+. Plantars downgoing. Sensory appears intact. Cerebellar, gait deferred. LABORATORY DATA: WBC 8, hemoglobin 10.7, hematocrit 34.9, platelets 225. Sodium 135, potassium 5.8, chloride 100, CO2 of 22, glucose 344, BUN 60, creatinine 3.9. IMPRESSION: Encephalopathy, possibly toxic metabolic. Altered mental status possibly secondary to metabolic state, high blood sugar with multiple medical problems, high blood pressure, diabetes, and endstage renal disease, on hemodialysis. Lab workup in progress. Continue present management. Will follow up. Chan Weir MD
--- NOTE | 2018-12-23 22:31 | CP.PCM.PN ---
Subjective - Date & Time of Evaluation Date of Evaluation: 12/23/18 Time of Evaluation: 13:15 - Subjective Subjective: patient is alert and responsive at this time. Patient was disoriented and confused last evening. She was evaluated by Dr Thompson she has a metabolic encephalopathy. Blood glucose level under better control at 188. Troponin levels have gone back to normal values. Patient scheduled for dialysis in a.m. Will repeat chest x-ray tomorrow. Objective - Vital Signs/Intake and Output Vital Signs (last 24 hours): Temp Pulse Resp BP Pulse Ox 97.8 F 81 20 124/69 97 12/23/18 15:30 12/23/18 16:00 12/23/18 15:30 12/23/18 15:30 12/23/18 15:30 Intake and Output: 12/23/18 12/24/18 18:59 06:59 Intake Total 480 Balance 480 - Medications Medications: Current Medications Albuterol Sulfate (Albuterol 0.042% Inhal Luisa (1.25mg/3ml) Ud) 1.25 mg INH RQ6 PRN PRN Reason: Shortness of Breath Last Admin: 12/22/18 07:50 Dose: 1.25 mg Aspirin (Aspirin Chewable) 81 mg PO DAILY [facility] Last Admin: 12/23/18 10:56 Dose: 81 mg Clopidogrel Bisulfate (Plavix) 75 mg PO DAILY [facility] Last Admin: 12/23/18 10:56 Dose: 75 mg Donepezil HCl (Aricept) 10 mg PO HS [facility] Last Admin: 12/23/18 21:10 Dose: 10 mg Enalapril Maleate (Vasotec) 10 mg PO DAILY [facility] Last Admin: 12/23/18 10:56 Dose: 10 mg Famotidine (Pepcid) 20 mg PO DAILY [facility] Last Admin: 12/23/18 10:56 Dose: 20 mg Heparin Sodium (Porcine) (Heparin (For Dialysis)) 4,600 units IVP MWF [facility] Last Admin: 12/22/18 11:48 Dose: 4,600 units Heparin Sodium (Porcine) (Heparin) 5,000 units SC Q12 [facility] Hydralazine HCl (Apresoline) 25 mg PO TID [facility] Last Admin: 12/23/18 17:34 Dose: 25 mg Insulin Aspart (Novolog) 14 unit SC BIDAC [facility] Last Admin: 12/23/18 17:00 Dose: Not Given Insulin Aspart (Novolog) 0 unit SC ACHS [facility]; Protocol Last Admin: 12/23/18 21:11 Dose: Not Given Levetiracetam (Keppra) 500 mg PO BID [facility] Last Admin: 12/23/18 17:34 Dose: 500 mg Losartan Potassium (Cozaar) 50 mg PO DAILY [facility] Last Admin: 12/23/18 10:56 Dose: 50 mg Montelukast Sodium (Singulair) 10 mg PO DAILY [facility] Last Admin: 12/23/18 10:56 Dose: 10 mg Quetiapine Fumarate (Seroquel) 25 mg PO DAILY [facility] Last Admin: 12/23/18 10:57 Dose: 25 mg Rosuvastatin Calcium (Crestor) 5 mg PO HS [facility] Last Admin: 12/23/18 21:10 Dose: 5 mg Sevelamer Carbonate (Renvela) 800 mg PO TIDCC [facility] Last Admin: 12/23/18 17:34 Dose: 800 mg Tolterodine Tartrate (Detrol La) 4 mg PO DAILY [facility] Last Admin: 12/23/18 10:57 Dose: 4 mg Vitamin B Complex/Vit C/Folic Acid (Nephro-Marina) 1 tab PO 0800 [facility] Last Admin: 12/23/18 08:39 Dose: 1 tab - Labs Labs: 12/22/18 19:04 12/22/18 19:04 PT 11.6 SECONDS (9.7-12.2) 12/20/18 20:56 INR 1.1 12/20/18 20:56 APTT 35 SECONDS (21-34) H 12/20/18 20:56 - Constitutional Appears: Chronically Ill - Head Exam Head Exam: NORMOCEPHALIC - Eye Exam Eye Exam: Normal appearance Pupil Exam: NORMAL ACCOMODATION - ENT Exam ENT Exam: Normal Exam - Neck Exam Neck Exam: Normal Inspection - Respiratory Exam Respiratory Exam: Decreased Breath Sounds - Cardiovascular Exam Cardiovascular Exam: REGULAR RHYTHM - GI/Abdominal Exam GI & Abdominal Exam: Normal Bowel Sounds - Extremities Exam Extremities Exam: Tenderness - Back Exam Back Exam: NORMAL INSPECTION - Neurological Exam Neurological Exam: Oriented x3 - Psychiatric Exam Psychiatric exam: Depressed - Skin Skin Exam: Dry Assessment and Plan (1) Pleural effusion Status: Acute (2) Abdominal pain Status: Acute (3) ESRD (end stage renal disease) on dialysis Status: Chronic (4) Diabetes mellitus type 2 in nonobese Status: Chronic (5) ESRD (end stage renal disease) Status: Chronic (6) Hypertension Status: Chronic (7) Diverticulosis Status: Acute (8) Elevated troponin level Status: Resolved (9) Metabolic encephalopathy Status: Acute
--- NOTE | 2018-12-24 07:55 | PN ---
DATE: 12/23/2018 SUBJECTIVE: The patient is afebrile. PHYSICAL EXAMINATION: VITAL SIGNS: Blood pressure is . CARDIOPULMONARY: Heart is regular. There is no gallop rhythm. LUNGS: Diminished breath sounds . ABDOMEN: Soft. EXTREMITIES: Legs, no edema. LABORATORY DATA: White count , hemoglobin 10.8, platelet count 265,000 . BUN 40 and creatinine . Blood sugar . ASSESSMENT AND PLAN: . Francisco Javier Guaman MD
[2018-12-24] MEDS: Multivitamin Vitamin B Complex (Nephro-Vite) Tab PO SCH (08:19)
[2018-12-24] MEDS: (Novolog) Insulin Aspart, Recombinant 100 u/ml 10 ml vial SC SCH ×6 (08:19→21:31)
[2018-12-24] MEDS: levETIRAcetam 100 mg/ml (5ml) Oral Syringe PO SCH ×2 (09:33→17:28)
[2018-12-24] MEDS: Tolterodine 4 mg ER Cap PO SCH (09:33)
--- NOTE | 2018-12-24 16:59 | CP.PCM.CON ---
History of Present Illness - History of Present Illness History of Present Illness: 83 yo female hospitalized because of abdominal pain after hemodialysis. A CT scan of the abdomen revealed bilateral pleural effusion. She is known to have a hypertension, an IDDM, a diastolic heart failure, an ESRD on HD, and a senile dementia. In the ED she was found to have elevated Pro-BNP and slightly elevated serum TNI's. Patient denies any chest pain, and ECG's did not reveal any acute change. Review of Systems - Review of Systems Systems not reviewed;Unavailable: Altered Mental Status - Cardiovascular Cardiovascular: Dyspnea - Respiratory Respiratory: Dyspnea - Gastrointestinal Gastrointestinal: Abdominal Pain - Musculoskeletal Musculoskeletal: Muscle Weakness - Neurological Neurological: Confusion - Psychiatric Psychiatric: Confusion Past Patient History - Infectious Disease Hx of Infectious Diseases: None - Tetanus Immunizations Tetanus Immunization: Unknown, Up to Date - Past Medical History & Family History Past Medical History?: Yes - Past Social History Smoking Status: Never Smoked Chewing Tobacco Use: No Cigar Use: No Alcohol: None Drugs: Denies Home Situation {Lives}: Alone - CARDIAC Hx Cardia Arrhythmia: Yes Hx Congestive Heart Failure: Yes Hx Hypercholesterolemia: Yes Hx Hypertension: Yes - PULMONARY Hx Asthma: Yes Hx Bronchitis: Yes Hx Chronic Obstructive Pulmonary Disease (COPD): Yes Hx Emphysema: Yes - NEUROLOGICAL Hx Dementia: Yes Hx Migraine: Yes Hx Transient Ischemic Attacks (TIA): Yes - HEENT Hx HEENT Problems: Yes Hx Blind: Yes (Left eye.) - RENAL Hx Chronic Kidney Disease: Yes - ENDOCRINE/METABOLIC Hx Endocrine Disorders: Yes Hx Diabetes Mellitus Type 2: Yes - INTEGUMENTARY Hx Dermatological Problems: Yes Hx Cellulitis: Yes Hx Eczema: Yes - MUSCULOSKELETAL/RHEUMATOLOGICAL Hx Arthritis: Yes Hx Fractures: Yes - GASTROINTESTINAL Hx Gastrointestinal Disorders: Yes Hx Gastroesophageal Reflux: Yes Hx Hemorrhoids: Yes - GENITOURINARY/GYNECOLOGICAL Hx Genitourinary Disorders: Yes Hx Urinary Tract Infection: Yes - PSYCHIATRIC Hx Anxiety: Yes Hx Depression: Yes Hx Substance Use: No - SURGICAL HISTORY Hx Surgeries: Yes Hx Arteriovenous Shunt: Yes (right arm) - ANESTHESIA Hx Anesthesia: Yes Hx Anesthesia Reactions: No Hx Malignant Hyperthermia: No Meds Allergies/Adverse Reactions: Allergies Allergy/AdvReac Type Severity Reaction Status Date / Time No Known Allergies Allergy Verified 12/20/18 20:18 - Medications Medications: Current Medications Albuterol Sulfate (Albuterol 0.042% Inhal Luisa (1.25mg/3ml) Ud) 1.25 mg INH RQ6 PRN PRN Reason: Shortness of Breath Last Admin: 12/22/18 07:50 Dose: 1.25 mg Aspirin (Aspirin Chewable) 81 mg PO DAILY [facility] Last Admin: 12/24/18 09:33 Dose: Not Given Clopidogrel Bisulfate (Plavix) 75 mg PO DAILY [facility] Last Admin: 12/24/18 09:34 Dose: Not Given Donepezil HCl (Aricept) 10 mg PO HS [facility] Last Admin: 12/23/18 21:10 Dose: 10 mg Enalapril Maleate (Vasotec) 10 mg PO DAILY [facility] Last Admin: 12/24/18 09:34 Dose: Not Given Famotidine (Pepcid) 20 mg PO DAILY [facility] Last Admin: 12/24/18 09:33 Dose: Not Given Heparin Sodium (Porcine) (Heparin (For Dialysis)) 4,600 units IVP MWF [facility] Last Admin: 12/24/18 13:15 Dose: 4,600 units Heparin Sodium (Porcine) (Heparin) 5,000 units SC Q12 [facility] Last Admin: 12/24/18 09:33 Dose: Not Given Hydralazine HCl (Apresoline) 25 mg PO TID [facility] Last Admin: 12/24/18 13:59 Dose: 25 mg Insulin Aspart (Novolog) 14 unit SC BIDAC [facility] Last Admin: 12/24/18 08:19 Dose: 14 u Insulin Aspart (Novolog) 0 unit SC ACHS [facility]; Protocol Last Admin: 12/24/18 11:37 Dose: Not Given Levetiracetam (Keppra) 500 mg PO BID [facility] Last Admin: 12/24/18 09:33 Dose: Not Given Losartan Potassium (Cozaar) 50 mg PO DAILY [facility] Last Admin: 12/24/18 09:33 Dose: Not Given Montelukast Sodium (Singulair) 10 mg PO HS [facility] Quetiapine Fumarate (Seroquel) 25 mg PO DAILY [facility] Last Admin: 12/24/18 09:34 Dose: Not Given Rosuvastatin Calcium (Crestor) 5 mg PO HS [facility] Last Admin: 12/23/18 21:10 Dose: 5 mg Sevelamer Carbonate (Renvela) 800 mg PO TIDCC [facility] Last Admin: 12/24/18 11:37 Dose: Not Given Tolterodine Tartrate (Detrol La) 4 mg PO DAILY [facility] Last Admin: 12/24/18 09:33 Dose: Not Given Vitamin B Complex/Vit C/Folic Acid (Nephro-Marina) 1 tab PO 0800 [facility] Last Admin: 12/24/18 08:19 Dose: 1 tab Physical Exam - Constitutional Appears: No Acute Distress, Confused, Chronically Ill - Head Exam Head Exam: NORMAL INSPECTION - Eye Exam Eye Exam: Normal appearance - ENT Exam ENT Exam: Normal Exam - Neck Exam Neck exam: Positive for: Normal Inspection - Respiratory Exam Respiratory Exam: Rhonchi - Cardiovascular Exam Cardiovascular Exam: REGULAR RHYTHM, Systolic Murmur - GI/Abdominal Exam GI & Abdominal Exam: Hyperactive Bowel Sounds, Soft - Rectal Exam Rectal Exam: Deferred - Exam Exam: NORMAL INSPECTION - Back Exam Back exam: NORMAL INSPECTION - Neurological Exam Neurological exam: Alert - Psychiatric Exam Psychiatric exam: Anxious - Skin Skin Exam: Dry, Intact, Normal Color, Warm Results - Vital Signs Recent Vital Signs: Last Vital Signs Temp 98.4 F 12/24/18 16:00 Pulse 76 12/24/18 16:00 Resp 18 12/24/18 16:00 BP 126/64 12/24/18 16:00 Pulse Ox 99 12/24/18 16:00 - Labs Result Diagrams: 12/22/18 19:04 12/22/18 19:04 Labs: Laboratory Results - last 24 hr 12/23/18 12/24/18 12/24/18 21:10 06:44 11:43 POC Glucose (mg/dL) 188 H 304 H 125 H 12/24/18 16:24 POC Glucose (mg/dL) 262 H Assessment & Plan (1) Abdominal pain Status: Acute (2) Metabolic encephalopathy Assessment and Plan: To control blod glucose and continue HD as per Nephrologists. Status: Acute (3) ESRD (end stage renal disease) on dialysis Status: Chronic Priority: Medium (4) Elevated troponin level Assessment and Plan: Probably secondary to ESRD. Status: Resolved (5) Pleural effusion Assessment and Plan: To continue HD as per Manufacturing Executive Status: Acute
--- NOTE | 2018-12-24 22:28 | CP.PCM.PN ---
Subjective - Date & Time of Evaluation Date of Evaluation: 12/24/18 Time of Evaluation: 13:25 - Subjective Subjective: Patient presently undergoing dialysis. Patient is responsive and cooperative. Patient was evaluated by Dr. Ji. Chest x-ray and labs requested. Troponin level has returned to normal levels. Objective - Vital Signs/Intake and Output Vital Signs (last 24 hours): Temp Pulse Resp BP Pulse Ox 98.4 F 80 18 126/64 99 12/24/18 16:00 12/24/18 18:00 12/24/18 16:00 12/24/18 16:00 12/24/18 16:00 - Medications Medications: Current Medications Albuterol Sulfate (Albuterol 0.042% Inhal Luisa (1.25mg/3ml) Ud) 1.25 mg INH RQ6 PRN PRN Reason: Shortness of Breath Last Admin: 12/22/18 07:50 Dose: 1.25 mg Aspirin (Aspirin Chewable) 81 mg PO DAILY [facility] Last Admin: 12/24/18 09:33 Dose: Not Given Clopidogrel Bisulfate (Plavix) 75 mg PO DAILY [facility] Last Admin: 12/24/18 09:34 Dose: Not Given Donepezil HCl (Aricept) 10 mg PO HS [facility] Last Admin: 12/24/18 21:42 Dose: 10 mg Enalapril Maleate (Vasotec) 10 mg PO DAILY [facility] Last Admin: 12/24/18 09:34 Dose: Not Given Famotidine (Pepcid) 20 mg PO DAILY [facility] Last Admin: 12/24/18 09:33 Dose: Not Given Heparin Sodium (Porcine) (Heparin (For Dialysis)) 4,600 units IVP MWF [facility] Last Admin: 12/24/18 13:15 Dose: 4,600 units Heparin Sodium (Porcine) (Heparin) 5,000 units SC Q12 [facility] Last Admin: 12/24/18 21:41 Dose: 5,000 units Hydralazine HCl (Apresoline) 25 mg PO TID [facility] Last Admin: 12/24/18 17:28 Dose: 25 mg Insulin Aspart (Novolog) 14 unit SC BIDAC [facility] Last Admin: 12/24/18 17:28 Dose: 14 u Insulin Aspart (Novolog) 0 unit SC ACHS [facility]; Protocol Last Admin: 12/24/18 21:31 Dose: Not Given Levetiracetam (Keppra) 500 mg PO BID [facility] Last Admin: 12/24/18 17:28 Dose: 500 mg Losartan Potassium (Cozaar) 50 mg PO DAILY [facility] Last Admin: 12/24/18 09:33 Dose: Not Given Montelukast Sodium (Singulair) 10 mg PO [facility] Last Admin: 12/24/18 21:42 Dose: 10 mg Quetiapine Fumarate (Seroquel) 25 mg PO DAILY [facility] Last Admin: 12/24/18 09:34 Dose: Not Given Rosuvastatin Calcium (Crestor) 5 mg PO [facility] Last Admin: 12/24/18 21:42 Dose: 5 mg Sevelamer Carbonate (Renvela) 800 mg PO TIDCC [facility] Last Admin: 12/24/18 17:28 Dose: 800 mg Tolterodine Tartrate (Detrol La) 4 mg PO DAILY [facility] Last Admin: 12/24/18 09:33 Dose: Not Given Vitamin B Complex/Vit C/Folic Acid (Nephro-Marina) 1 tab PO 0800 [facility] Last Admin: 12/24/18 08:19 Dose: 1 tab - Labs Labs: 12/22/18 19:04 12/22/18 19:04 PT 11.6 SECONDS (9.7-12.2) 12/20/18 20:56 INR 1.1 12/20/18 20:56 APTT 35 SECONDS (21-34) H 12/20/18 20:56 - Constitutional Appears: Chronically Ill - Head Exam Head Exam: NORMOCEPHALIC - Eye Exam Eye Exam: Normal appearance Pupil Exam: NORMAL ACCOMODATION - ENT Exam ENT Exam: Normal Exam - Neck Exam Neck Exam: Normal Inspection - Respiratory Exam Respiratory Exam: Decreased Breath Sounds - Cardiovascular Exam Cardiovascular Exam: REGULAR RHYTHM - GI/Abdominal Exam GI & Abdominal Exam: Normal Bowel Sounds - Extremities Exam Extremities Exam: Tenderness - Back Exam Back Exam: NORMAL INSPECTION - Neurological Exam Neurological Exam: Oriented x3 - Psychiatric Exam Psychiatric exam: Depressed - Skin Skin Exam: Dry Assessment and Plan (1) Pleural effusion Status: Acute (2) Abdominal pain Status: Acute (3) ESRD (end stage renal disease) on dialysis Status: Chronic (4) Diabetes mellitus type 2 in nonobese Status: Chronic (5) ESRD (end stage renal disease) Status: Chronic (6) Hypertension Status: Chronic (7) Diverticulosis Status: Acute (8) Elevated troponin level Status: Resolved (9) Metabolic encephalopathy Status: Acute
--- NOTE | 2018-12-25 05:13 | CP.PCM.PN ---
Subjective - Date & Time of Evaluation Date of Evaluation: 12/24/18 Time of Evaluation: 15:00 - Subjective Subjective: SEEN ON RENAL F/U RECIEVED HER HD ..TOLERATED WELL FEELS IMPROVED SEEN ON HD CARDIO WORK APPRECIATED Objective - Vital Signs/Intake and Output Vital Signs (last 24 hours): Temp Pulse Resp BP Pulse Ox 98.1 F 89 20 151/70 H 96 12/25/18 00:00 12/25/18 00:00 12/25/18 00:00 12/25/18 00:00 12/25/18 00:00 - Medications Medications: Current Medications Albuterol Sulfate (Albuterol 0.042% Inhal Luisa (1.25mg/3ml) Ud) 1.25 mg INH RQ6 PRN PRN Reason: Shortness of Breath Last Admin: 12/22/18 07:50 Dose: 1.25 mg Aspirin (Aspirin Chewable) 81 mg PO DAILY [facility] Last Admin: 12/24/18 09:33 Dose: Not Given Clopidogrel Bisulfate (Plavix) 75 mg PO DAILY [facility] Last Admin: 12/24/18 09:34 Dose: Not Given Donepezil HCl (Aricept) 10 mg PO HS [facility] Last Admin: 12/24/18 21:42 Dose: 10 mg Enalapril Maleate (Vasotec) 10 mg PO DAILY [facility] Last Admin: 12/24/18 09:34 Dose: Not Given Famotidine (Pepcid) 20 mg PO DAILY [facility] Last Admin: 12/24/18 09:33 Dose: Not Given Heparin Sodium (Porcine) (Heparin (For Dialysis)) 4,600 units IVP MWF [facility] Last Admin: 12/24/18 13:15 Dose: 4,600 units Heparin Sodium (Porcine) (Heparin) 5,000 units SC Q12 [facility] Last Admin: 12/24/18 21:41 Dose: 5,000 units Hydralazine HCl (Apresoline) 25 mg PO TID [facility] Last Admin: 12/24/18 17:28 Dose: 25 mg Insulin Aspart (Novolog) 14 unit SC BIDAC [facility] Last Admin: 12/24/18 17:28 Dose: 14 u Insulin Aspart (Novolog) 0 unit SC ACHS [facility]; Protocol Last Admin: 12/24/18 21:31 Dose: Not Given Levetiracetam (Keppra) 500 mg PO BID [facility] Last Admin: 12/24/18 17:28 Dose: 500 mg Losartan Potassium (Cozaar) 50 mg PO DAILY [facility] Last Admin: 12/24/18 09:33 Dose: Not Given Montelukast Sodium (Singulair) 10 mg PO HS [facility] Last Admin: 12/24/18 21:42 Dose: 10 mg Quetiapine Fumarate (Seroquel) 25 mg PO DAILY [facility] Last Admin: 12/24/18 09:34 Dose: Not Given Rosuvastatin Calcium (Crestor) 5 mg PO HS [facility] Last Admin: 12/24/18 21:42 Dose: 5 mg Sevelamer Carbonate (Renvela) 800 mg PO TIDCC [facility] Last Admin: 12/24/18 17:28 Dose: 800 mg Tolterodine Tartrate (Detrol La) 4 mg PO DAILY [facility] Last Admin: 12/24/18 09:33 Dose: Not Given Vitamin B Complex/Vit C/Folic Acid (Nephro-Marina) 1 tab PO 0800 [facility] Last Admin: 12/24/18 08:19 Dose: 1 tab - Labs Labs: 12/22/18 19:04 12/22/18 19:04 PT 11.6 SECONDS (9.7-12.2) 12/20/18 20:56 INR 1.1 12/20/18 20:56 APTT 35 SECONDS (21-34) H 12/20/18 20:56 Assessment and Plan - Assessment and Plan (Free Text) Assessment: ESRD ON HD M W F ANEMIA OF CKD ..H/H STABLE ELECTROLYTES ABN ..OK MMP P : C/O WITH HD C/O SAME MEDS C/O PRESENT MANAGEMENT
--- NOTE | 2018-12-25 06:41 | PN ---
DATE: 12/24/2018 SUBJECTIVE: The patient is alert and oriented. She is now in dialysis unit having dialysis. She is not in distress, no acute dyspnea and no acute pain. She is scheduled to have at least 2.5 L of fluid out in the dialysis unit. PHYSICAL EXAMINATION: VITAL SIGNS: She is afebrile with blood pressure of 100/50. CARDIOPULMONARY: Her heart is regular. There is no gallop rhythm. LUNGS: Diminished breath sounds over the lung bases, rhonchi decreased. ABDOMEN: Soft. EXTREMITIES: Legs, edema decreased. IMPRESSION: Respiratory insufficiency, hypertensive cardiovascular disease, end-stage renal failure, diabetes mellitus, arthritis, exacerbation of chronic obstructive pulmonary disease. PLAN: To continue with the current medications including dialysis on scheduled basis and continue followup with specialist's opinion. We will do chest x-ray repeat film in the morning. Francisco Javier Guaman MD
[2018-12-25 07:18] LABS: BASO # 0.1 K/uL (0.0-0.2); BASO % 0.8 % (0.0-2.0); EOS # 0.2 K/uL (0.0-0.7); EOS % 3.3 % (0.0-4.0); HEMOGLOBIN 10.8 g/dL (11.0-16.0); LYMPH # 1.9 K/uL (1.0-4.3); LYMPH % 29.3 % (20.0-40.0); MEAN CELL VOLUME 84.8 fL (81.0-99.0); MEAN CORPUSCULAR HEMOGLOBIN 26.9 pg (27.0-31.0); MEAN CORPUSCULAR HGB CONC 31.7 g/dL (33.0-37.0); MEAN PLATELET VOLUME 9.7 fL (7.2-11.7); MONO # 1.1 K/uL (0.0-0.8); NEUT # 3.4 K/uL (1.8-7.0); NEUT % 50.6 % (50.0-75.0); NRBC % 0.2 % (0.0-2.0); RBC 4.01 Mil/uL (3.80-5.20); RED CELL DISTRIBUTION WIDTH 18.5 % (11.5-14.5); WHITE BLOOD COUNT 6.6 K/uL (4.8-10.8)
[2018-12-25] MEDS: Multivitamin Vitamin B Complex (Nephro-Vite) Tab PO SCH (08:27)
[2018-12-25] MEDS: (Novolog) Insulin Aspart, Recombinant 100 u/ml 10 ml vial SC SCH ×7 (08:27→21:49)
--- NOTE | 2018-12-25 09:38 | CP.PCM.PCO ---
Physician Communication Note - Physician Communication Note Physician Communication Note: Family meeting at 10 am this morning
[2018-12-25] MEDS: levETIRAcetam 100 mg/ml (5ml) Oral Syringe PO SCH ×2 (09:57→17:24)
[2018-12-25] MEDS: Tolterodine 4 mg ER Cap PO SCH (09:58)
--- NOTE | 2018-12-25 10:59 | RAD ---
Date of service: 12/25/2018 HISTORY: CHF COMPARISON: 12/20/2018 TECHNIQUE: Chest PA and lateral FINDINGS: LUNGS: No active pulmonary disease. PLEURA: No significant pleural effusion identified. No pneumothorax apparent. CARDIOVASCULAR: No aortic atherosclerotic calcification present. Normal cardiac size. No congestive change. Left tunneled central venous dialysis catheter. Right brachiocephalic venous stent. OSSEOUS STRUCTURES: No significant abnormalities. VISUALIZED UPPER ABDOMEN: Normal. OTHER FINDINGS: None. IMPRESSION: No active disease.
[2018-12-25] MEDS ORDERED: (Novolog) Insulin Aspart, Recombinant 100 u/ml 10 ml vial SC SCH (12:04)
--- NOTE | 2018-12-25 14:30 | CP.PCM.PN ---
Subjective - Date & Time of Evaluation Date of Evaluation: 12/25/18 Time of Evaluation: 11:00 - Subjective Subjective: Patient examined in bed, alert to person and place but no to time, mildly confused , in no distress. There is no cough or SOB. O2Sat 97 % RA. Denies epigastric pain.BS remains high, between 400 -500. Patient is receiving Insulin as per sliding scale. Patient is asking about going home again. Patient's daughter present for the family meeting. Objective - Vital Signs/Intake and Output Vital Signs (last 24 hours): Temp Pulse Resp BP Pulse Ox 98.2 F 83 20 142/73 97 12/25/18 08:26 12/25/18 08:26 12/25/18 08:26 12/25/18 10:01 12/25/18 08:26 - Medications Medications: Current Medications Albuterol Sulfate (Albuterol 0.042% Inhal Luisa (1.25mg/3ml) Ud) 1.25 mg INH RQ6 PRN PRN Reason: Shortness of Breath Last Admin: 12/22/18 07:50 Dose: 1.25 mg Aspirin (Aspirin Chewable) 81 mg PO DAILY [facility] Last Admin: 12/25/18 09:59 Dose: 81 mg Clopidogrel Bisulfate (Plavix) 75 mg PO DAILY [facility] Last Admin: 12/25/18 09:59 Dose: 75 mg Donepezil HCl (Aricept) 10 mg PO HS [facility] Last Admin: 12/24/18 21:42 Dose: 10 mg Enalapril Maleate (Vasotec) 10 mg PO DAILY [facility] Last Admin: 12/25/18 10:01 Dose: 10 mg Famotidine (Pepcid) 20 mg PO DAILY [facility] Last Admin: 12/25/18 10:00 Dose: 20 mg Heparin Sodium (Porcine) (Heparin (For Dialysis)) 4,600 units IVP MWF [facility] Last Admin: 12/24/18 13:15 Dose: 4,600 units Heparin Sodium (Porcine) (Heparin) 5,000 units SC Q12 [facility] Last Admin: 12/25/18 09:58 Dose: 5,000 units Hydralazine HCl (Apresoline) 25 mg PO TID [facility] Last Admin: 12/25/18 13:08 Dose: 25 mg Insulin Aspart (Novolog) 14 unit SC BIDAC [facility] Last Admin: 12/25/18 10:01 Dose: 14 u Insulin Aspart (Novolog) 0 unit SC [facility]; Protocol Last Admin: 12/25/18 12:19 Dose: 10 units Insulin Glargine (Lantus) 26 unit SC [facility] Levetiracetam (Keppra) 500 mg PO BID [facility] Last Admin: 12/25/18 09:57 Dose: 500 mg Losartan Potassium (Cozaar) 50 mg PO DAILY [facility] Last Admin: 12/25/18 09:59 Dose: 50 mg Montelukast Sodium (Singulair) 10 mg PO [facility] Last Admin: 12/24/18 21:42 Dose: 10 mg Quetiapine Fumarate (Seroquel) 25 mg PO DAILY [facility] Last Admin: 12/25/18 09:57 Dose: 25 mg Rosuvastatin Calcium (Crestor) 5 mg PO [facility] Last Admin: 12/24/18 21:42 Dose: 5 mg Sevelamer Carbonate (Renvela) 800 mg PO TIDCC [facility] Last Admin: 12/25/18 12:20 Dose: 800 mg Tolterodine Tartrate (Detrol La) 4 mg PO DAILY [facility] Last Admin: 12/25/18 09:58 Dose: 4 mg Vitamin B Complex/Vit C/Folic Acid (Nephro-Marina) 1 tab PO 0800 [facility] Last Admin: 12/25/18 08:27 Dose: 1 tab - Labs Labs: 12/25/18 06:48 12/25/18 06:48 PT 11.6 SECONDS (9.7-12.2) 12/20/18 20:56 INR 1.1 12/20/18 20:56 APTT 35 SECONDS (21-34) H 12/20/18 20:56 - Constitutional Appears: No Acute Distress, Chronically Ill - Head Exam Head Exam: ATRAUMATIC, NORMAL INSPECTION, NORMOCEPHALIC - Eye Exam Eye Exam: EOMI, Normal appearance, PERRL Pupil Exam: NORMAL ACCOMODATION, PERRL - ENT Exam ENT Exam: Mucous Membranes Moist, Normal Exam - Neck Exam Neck Exam: Full ROM, Normal Inspection - Respiratory Exam Respiratory Exam: Decreased Breath Sounds, NORMAL BREATHING PATTERN - Cardiovascular Exam Cardiovascular Exam: Tachycardia, Irregular Rhythm - GI/Abdominal Exam GI & Abdominal Exam: Soft, Normal Bowel Sounds - Rectal Exam Rectal Exam: Deferred - Extremities Exam Extremities Exam: Full ROM, Normal Capillary Refill, Normal Inspection - Back Exam Back Exam: NORMAL INSPECTION - Neurological Exam Neurological Exam: Alert, Altered Neuro motor strength exam: Left Upper Extremity: 2/, Right Upper Extremity: 2/, Left Lower Extremity: 2/, Right Lower Extremity: 2/ - Psychiatric Exam Psychiatric exam: Flat Affect - Skin Skin Exam: Dry, Intact, Normal Color, Warm Assessment and Plan - Assessment and Plan (Free Text) Assessment: Family meeting attended by patient's daughter. Goals of care discussed. At first informed daughter that patient was not candidate for HRRP program due to her health insurance . We preceded with goals of care discussion. I reviewed patient's current condition and I elicited daughter's understanding of it. She said, that her mother has been forgetful in the past but lately seems even more so. Daughter also wishes her mother was more at home than at the hospital what was patient's desire as well. I discussed measures of controlling the CHF at home by limiting Na intake, taking diuretics as prescribed, using nebulizer and going for HD. 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 I offered my concern about patient's safety at home once PROCUREMENT SERVICES MANAGER leaves. Daughter stated she has family and friends attending to a patient in after care hours. Code status discussed. I explained the need to plan for end of life care ahead of time especially in elderly people with chronic diagnosis. The daughter admitted feeling nervous about it but acknowledge the need for it and said was going to think about it and decide in the future time. We discussed possibility of KATHRINE and strengthening exercises to get patient more on her feet. Patient and daughter asked for discharge home instead. Impression * S/P CHF exacerbation * Increased confusion, possibly due to combination of Dementia and change of the environment * High risk for fall after being on bed rest for while * Patient is clinically stable for discharge * Patient and family prefers home discharge * Patient is high risk for being alone at home due to confusion * Daughter asking for Full Code as of now Suggestion * Continue safety watch * Home discharge planing with VNS * Consider PT at home * Reinforce teaching about CHF control at home * Full Code Palliative care will sign of at this time. Advance care planing 55 min.
[2018-12-25] MEDS ORDERED: (Lantus) Insulin Glargine, Recombinant SC SCH (22:00)
--- NOTE | 2018-12-25 23:14 | CP.PCM.PN ---
Subjective - Date & Time of Evaluation Date of Evaluation: 12/25/18 Time of Evaluation: 19:15 - Subjective Subjective: patient more responsive and less confused today. Pro BNT down to 25,000. Chest x-ray shows improvement. Patient anxious to be discharged patient scheduled for dialysis in a.m. Objective - Vital Signs/Intake and Output Vital Signs (last 24 hours): Temp Pulse Resp BP Pulse Ox 98.1 F 83 18 122/62 96 12/25/18 16:27 12/25/18 16:27 12/25/18 16:27 12/25/18 16:27 12/25/18 16:27 - Medications Medications: Current Medications Albuterol Sulfate (Albuterol 0.042% Inhal Luisa (1.25mg/3ml) Ud) 1.25 mg INH RQ6 PRN PRN Reason: Shortness of Breath Last Admin: 12/22/18 07:50 Dose: 1.25 mg Aspirin (Aspirin Chewable) 81 mg PO DAILY [facility] Last Admin: 12/25/18 09:59 Dose: 81 mg Clopidogrel Bisulfate (Plavix) 75 mg PO DAILY [facility] Last Admin: 12/25/18 09:59 Dose: 75 mg Donepezil HCl (Aricept) 10 mg PO HS [facility] Last Admin: 12/25/18 21:46 Dose: 10 mg Enalapril Maleate (Vasotec) 10 mg PO DAILY [facility] Last Admin: 12/25/18 10:01 Dose: 10 mg Famotidine (Pepcid) 20 mg PO DAILY [facility] Last Admin: 12/25/18 10:00 Dose: 20 mg Heparin Sodium (Porcine) (Heparin (For Dialysis)) 4,600 units IVP MWF [facility] Last Admin: 12/24/18 13:15 Dose: 4,600 units Heparin Sodium (Porcine) (Heparin) 5,000 units SC Q12 [facility] Last Admin: 12/25/18 21:46 Dose: 5,000 units Hydralazine HCl (Apresoline) 25 mg PO TID [facility] Last Admin: 12/25/18 17:24 Dose: 25 mg Insulin Aspart (Novolog) 14 unit SC BIDAC [facility] Last Admin: 12/25/18 17:13 Dose: Not Given Insulin Aspart (Novolog) 0 unit SC ACHS [facility]; Protocol Last Admin: 12/25/18 21:49 Dose: Not Given Insulin Glargine (Lantus) 26 unit SC [facility] Last Admin: 12/25/18 21:52 Dose: 26 unit Levetiracetam (Keppra) 500 mg PO BID [facility] Last Admin: 12/25/18 17:24 Dose: 500 mg Losartan Potassium (Cozaar) 50 mg PO DAILY [facility] Last Admin: 12/25/18 09:59 Dose: 50 mg Montelukast Sodium (Singulair) 10 mg PO [facility] Last Admin: 12/25/18 21:46 Dose: 10 mg Quetiapine Fumarate (Seroquel) 25 mg PO DAILY [facility] Last Admin: 12/25/18 09:57 Dose: 25 mg Rosuvastatin Calcium (Crestor) 5 mg PO [facility] Last Admin: 12/24/18 21:42 Dose: 5 mg Sevelamer Carbonate (Renvela) 800 mg PO TIDCC [facility] Last Admin: 12/25/18 17:24 Dose: 800 mg Tolterodine Tartrate (Detrol La) 4 mg PO DAILY [facility] Last Admin: 12/25/18 09:58 Dose: 4 mg Vitamin B Complex/Vit C/Folic Acid (Nephro-Marina) 1 tab PO 0800 [facility] Last Admin: 12/25/18 08:27 Dose: 1 tab - Labs Labs: 12/25/18 06:48 12/25/18 06:48 PT 11.6 SECONDS (9.7-12.2) 12/20/18 20:56 INR 1.1 12/20/18 20:56 APTT 35 SECONDS (21-34) H 12/20/18 20:56 - Constitutional Appears: Chronically Ill - Head Exam Head Exam: NORMOCEPHALIC - Eye Exam Eye Exam: Normal appearance Pupil Exam: NORMAL ACCOMODATION - ENT Exam ENT Exam: Normal Exam - Neck Exam Neck Exam: Normal Inspection - Respiratory Exam Respiratory Exam: Decreased Breath Sounds - Cardiovascular Exam Cardiovascular Exam: REGULAR RHYTHM - GI/Abdominal Exam GI & Abdominal Exam: Normal Bowel Sounds - Exam External exam: NORMAL EXTERNAL EXAM - Extremities Exam Extremities Exam: Tenderness - Back Exam Back Exam: NORMAL INSPECTION - Neurological Exam Neurological Exam: Oriented x3 - Psychiatric Exam Psychiatric exam: Depressed - Skin Skin Exam: Dry Assessment and Plan (1) Pleural effusion Status: Acute (2) Abdominal pain Status: Acute (3) ESRD (end stage renal disease) on dialysis Status: Chronic (4) Diabetes mellitus type 2 in nonobese Status: Chronic (5) ESRD (end stage renal disease) Status: Chronic (6) Hypertension Status: Chronic (7) Diverticulosis Status: Acute (8) Elevated troponin level Status: Resolved (9) Metabolic encephalopathy Status: Acute
[2018-12-26] MEDS: Multivitamin Vitamin B Complex (Nephro-Vite) Tab PO SCH (08:40)
[2018-12-26] MEDS: (Novolog) Insulin Aspart, Recombinant 100 u/ml 10 ml vial SC SCH ×3 (08:41→11:40)
[2018-12-26] MEDS: levETIRAcetam 100 mg/ml (5ml) Oral Syringe PO SCH (11:40)
[2018-12-26] MEDS: Albuterol 0.042% Inhal Sol (1.25 mg/3 mL) UD INH PRN (13:30)
[2018-12-26 13:31] VITALS: PULSE 71; RESP 20; TEMP 97.5; O2SAT 99
[2018-12-26] MEDS: Tolterodine 4 mg ER Cap PO SCH (14:15)
[2018-12-26 14:16] VITALS: BP 158/74
--- NOTE | 2018-12-26 15:01 | CP.PCM.PN ---
Subjective - Date & Time of Evaluation Date of Evaluation: 12/26/18 Time of Evaluation: 15:01 - Subjective Subjective: PATIENT SEEN AND EXAMINED AT THE BEDSIDE Objective - Vital Signs/Intake and Output Vital Signs (last 24 hours): Temp Pulse Resp BP Pulse Ox 97.5 F L 71 20 158/74 H 99 12/26/18 13:05 12/26/18 13:05 12/26/18 13:05 12/26/18 14:14 12/26/18 13:05 - Medications Medications: Current Medications Albuterol Sulfate (Albuterol 0.042% Inhal Luisa (1.25mg/3ml) Ud) 1.25 mg INH RQ6 PRN PRN Reason: Shortness of Breath Last Admin: 12/26/18 13:30 Dose: 1.25 mg Aspirin (Aspirin Chewable) 81 mg PO DAILY [facility] Last Admin: 12/26/18 14:13 Dose: 81 mg Clopidogrel Bisulfate (Plavix) 75 mg PO DAILY [facility] Last Admin: 12/26/18 14:14 Dose: 75 mg Donepezil HCl (Aricept) 10 mg PO HS [facility] Last Admin: 12/25/18 21:46 Dose: 10 mg Enalapril Maleate (Vasotec) 10 mg PO DAILY [facility] Last Admin: 12/26/18 14:14 Dose: 10 mg Famotidine (Pepcid) 20 mg PO DAILY [facility] Last Admin: 12/26/18 14:13 Dose: 20 mg Heparin Sodium (Porcine) (Heparin (For Dialysis)) 4,600 units IVP MWF [facility] Last Admin: 12/24/18 13:15 Dose: 4,600 units Heparin Sodium (Porcine) (Heparin) 5,000 units SC Q12 [facility] Last Admin: 12/26/18 11:39 Dose: Not Given Hydralazine HCl (Apresoline) 25 mg PO TID [facility] Last Admin: 12/26/18 14:12 Dose: 25 mg Insulin Aspart (Novolog) 14 unit SC BIDAC [facility] Last Admin: 12/26/18 08:41 Dose: 14 u Insulin Aspart (Novolog) 0 unit SC ACHS [facility]; Protocol Last Admin: 12/26/18 11:40 Dose: Not Given Insulin Glargine (Lantus) 26 unit SC HS [facility] Last Admin: 12/25/18 21:52 Dose: 26 unit Levetiracetam (Keppra) 500 mg PO BID [facility] Last Admin: 12/26/18 11:40 Dose: Not Given Losartan Potassium (Cozaar) 50 mg PO DAILY [facility] Last Admin: 12/26/18 14:13 Dose: 50 mg Montelukast Sodium (Singulair) 10 mg PO HS [facility] Last Admin: 12/25/18 21:46 Dose: 10 mg Quetiapine Fumarate (Seroquel) 25 mg PO DAILY [facility] Last Admin: 12/26/18 14:18 Dose: 25 mg Rosuvastatin Calcium (Crestor) 5 mg PO [facility] Last Admin: 12/24/18 21:42 Dose: 5 mg Sevelamer Carbonate (Renvela) 800 mg PO TIDCC [facility] Last Admin: 12/26/18 14:15 Dose: Not Given Tolterodine Tartrate (Detrol La) 4 mg PO DAILY [facility] Last Admin: 12/26/18 14:15 Dose: 4 mg Vitamin B Complex/Vit C/Folic Acid (Nephro-Marina) 1 tab PO 0800 [facility] Last Admin: 12/26/18 08:40 Dose: 1 tab - Labs Labs: 12/25/18 06:48 12/25/18 06:48 PT 11.6 SECONDS (9.7-12.2) 12/20/18 20:56 INR 1.1 12/20/18 20:56 APTT 35 SECONDS (21-34) H 12/20/18 20:56 Assessment and Plan - Assessment and Plan (Free Text) Assessment: FOLLOW UP WITH PMD IN HIS OFFICE CONTINUE HOME MEDICATION ACTIVITY TOLERATED CALL DR ARANDA OR GO TO THE EMERGENCY ROOM IF SYMPTOM RETURN OR WORSENING
--- NOTE | 2018-12-26 15:57 | PN ---
DATE: 12/26/2018 SUBJECTIVE: The patient is in bed. She is alert, oriented. PHYSICAL EXAMINATION: VITAL SIGNS: Afebrile with blood pressure 122/58, pulse 70, respirations 20, hemoglobin oxygen saturation 99% on room air. HEART: Regular. No gallop rhythm. LUNGS: Diminished breath sounds over the lung bases. Rhonchi decreased. ABDOMEN: Soft. EXTREMITIES: Legs, edema subsided. The patient has had dialysis. LABORATORY DATA: Chest x-ray shows improvement and is clearer with no obvious infiltrate. Film shows hyperinflation. IMPRESSION: Respiratory insufficiency, diabetes mellitus, exacerbation of chronic obstructive pulmonary disease, emphysema, arthritis, end-stage renal disease. The patient on dialysis regimen. PLAN: To continue with the current medications and management and general medical care. Francisco Javier Guaman MD
--- NOTE | 2018-12-26 22:28 | CP.PCM.DIS ---
Provider - Provider Date of Admission: 12/20/18 23:40 Attending physician: Valdez Aranda MD Consults: 12/20/18 21:51 Nephrology Consult Routine Comment: Consulting Provider: Kanika Diaz Consulting Physician: Kanika Diaz Reason for Consult: esrd Pulmonology Consult Routine Comment: Consulting Provider: Francisco Javier Guaman Consulting Physician: Francisco Javier Guaman Reason for Consult: sob 12/21/18 12:51 Physician Consult Routine Comment: Consulting Provider: Efren Mei Consulting Physician: Efren Mei Reason for Consult: abnormal ekg 12/21/18 13:34 Palliative Care Consult Routine Comment: Consulting Provider: Tasha Urrutia Physician Instructions: Reason For Exam: depression 12/22/18 20:14 Neurology Consult Routine Comment: Consulting Provider: Marcio Weir Consulting Physician: Marcio Weir Reason for Consult: AMS Time Spent in preparation of Discharge (in minutes): 25 Diagnosis - Discharge Diagnosis (1) Pleural effusion Status: Acute (2) Abdominal pain Status: Acute (3) ESRD (end stage renal disease) on dialysis Status: Chronic Priority: Medium (4) Diabetes mellitus type 2 in nonobese Status: Chronic (5) ESRD (end stage renal disease) Status: Chronic (6) Hypertension Status: Chronic (7) Diverticulosis Status: Acute (8) Metabolic encephalopathy Status: Acute Hospital Course - Lab Results Lab Results: Micro Results 12/20/18 22:18 Blood Blood Culture - Final NO GROWTH AFTER 5 DAYS 12/20/18 22:18 Blood Gram Stain - Final TEST NOT PERFORMED 12/20/18 20:56 Blood Blood Culture - Final NO GROWTH AFTER 5 DAYS 12/20/18 20:56 Blood Gram Stain - Final TEST NOT PERFORMED Most Recent Lab Values WBC 6.6 K/uL (4.8-10.8) 12/25/18 06:48 RBC 4.01 Mil/uL (3.80-5.20) 12/25/18 06:48 Hgb 10.8 g/dL (11.0-16.0) L 12/25/18 06:48 Hct 34.0 % (34.0-47.0) 12/25/18 06:48 MCV 84.8 fL (81.0-99.0) 12/25/18 06:48 MCH 26.9 pg (27.0-31.0) L 12/25/18 06:48 MCHC 31.7 g/dL (33.0-37.0) L 12/25/18 06:48 RDW 18.5 % (11.5-14.5) H 12/25/18 06:48 Plt Count 271 K/uL (130-400) 12/25/18 06:48 MPV 9.7 fL (7.2-11.7) 12/25/18 06:48 Neut % (Auto) 50.6 % (50.0-75.0) 12/25/18 06:48 Lymph % (Auto) 29.3 % (20.0-40.0) 12/25/18 06:48 [place] % (Auto) 16.0 % (0.0-10.0) H 12/25/18 06:48 Eos % (Auto) 3.3 % (0.0-4.0) 12/25/18 06:48 Baso % (Auto) 0.8 % (0.0-2.0) 12/25/18 06:48 Neut # (Auto) 3.4 K/uL (1.8-7.0) 12/25/18 06:48 Lymph # (Auto) 1.9 K/uL (1.0-4.3) 12/25/18 06:48 [place] # (Auto) 1.1 K/uL (0.0-0.8) H 12/25/18 06:48 Eos # (Auto) 0.2 K/uL (0.0-0.7) 12/25/18 06:48 Baso # (Auto) 0.1 K/uL (0.0-0.2) 12/25/18 06:48 ESR 35 mm/hr (0-20) H 12/21/18 17:08 PT 11.6 SECONDS (9.7-12.2) 12/20/18 20:56 INR 1.1 12/20/18 20:56 APTT 35 SECONDS (21-34) H 12/20/18 20:56 Puncture Site Lr 12/21/18 09:40 pCO2 36 mm/Hg (35-45) 12/21/18 09:40 pO2 66 mm/Hg (80-100) L 12/21/18 09:40 HCO3 24.2 mmol/L (21-28) 12/21/18 09:40 ABG pH 7.42 (7.35-7.45) 12/21/18 09:40 ABG Total CO2 24.5 mmol/L (22-28) 12/21/18 09:40 ABG O2 Saturation 96.4 % (95-98) 12/21/18 09:40 ABG Base Excess -0.8 mmol/L (-2.0-3.0) 12/21/18 09:40 ABG Hemoglobin 10.6 g/dL (11.7-17.4) L 12/21/18 09:40 ABG Carboxyhemoglobin 2.8 % (0.5-1.5) H 12/21/18 09:40 POC ABG HHb (Measured) 3.5 % (0.0-5.0) 12/21/18 09:40 ABG Methemoglobin 1.2 % (0.0-3.0) 12/21/18 09:40 Mohinder Test Pos 12/21/18 09:40 VBG pH 7.44 (7.32-7.43) H 12/20/18 20:51 VBG pCO2 37 mmHg (40-60) L 12/20/18 20:51 VBG HCO3 25.5 mmol/L 12/20/18 20:51 VBG Total CO2 26.2 mmol/L (22-28) 12/20/18 20:51 VBG O2 Sat (Calc) 87.6 % (40-65) H 12/20/18 20:51 VBG Base Excess 1.1 mmol/L (0.0-2.0) 12/20/18 20:51 VBG Potassium 5.3 mmol/L (3.6-5.2) H 12/20/18 20:51 A-a O2 Difference 117.0 mm/Hg 12/21/18 09:40 Respiratory Index 1.8 12/21/18 09:40 Hgb O2 Saturation 92.5 % (95.0-98.0) L 12/21/18 09:40 Sodium 137.0 mmol/l (132-148) 12/20/18 20:51 Chloride 106.0 mmol/L (98-107) 12/20/18 20:51 Glucose 346 mg/dl (65-105) H 12/20/18 20:51 Lactate 1.6 mmol/L (0.7-2.1) 12/20/18 20:51 Liter Flow 3.0 12/21/18 09:40 FiO2 32.0 % 12/21/18 09:40 Sodium 131 mmol/L (132-148) L 12/25/18 06:48 Potassium 4.7 mmol/L (3.6-5.2) 12/25/18 06:48 Chloride 95 mmol/L (98-107) L 12/25/18 06:48 Carbon Dioxide 27 mmol/L (22-30) 12/25/18 06:48 Anion Gap 15 (10-20) 12/22/18 19:04 BUN 47 mg/dL (7-17) H 12/25/18 06:48 Creatinine 3.9 mg/dL (0.7-1.2) H 12/22/18 19:04 Est GFR ( Amer) 13 12/22/18 19:04 Est GFR (Non-Af Amer) 11 12/22/18 19:04 POC Glucose (mg/dL) 129 mg/dL (65-110) H 12/26/18 11:00 Random Glucose 323 mg/dL (65-105) H 12/22/18 19:04 Calcium 9.5 mg/dl (8.6-10.4) 12/22/18 19:04 Total Bilirubin 1.0 mg/dL (0.2-1.3) 12/22/18 19:04 Direct Bilirubin 0.4 mg/dL (0.0-0.4) 12/20/18 20:56 AST 33 U/L (14-36) 12/22/18 19:04 ALT 22 U/L (9-52) 12/22/18 19:04 Alkaline Phosphatase 147 U/L (38-126) H 12/22/18 19:04 Total Creatine Kinase 46 U/L (30-135) 12/22/18 08:14 CK-MB (Mass) 1.35 ng/mL (0.0-3.38) 12/22/18 08:14 Troponin I 0.0780 ng/mL (0.00-0.120) 12/23/18 13:51 NT-Pro-B Natriuret Pep 19662 pg/mL (0-900) H 12/25/18 06:48 Total Protein 7.2 g/dL (6.3-8.3) 12/22/18 19:04 Albumin 4.2 g/dL (3.5-5.0) 12/22/18 19:04 Globulin 3.0 gm/dL (2.2-3.9) 12/22/18 19:04 Albumin/Globulin Ratio 1.4 (1.0-2.1) 12/22/18 19:04 Lipase 61 U/L (23-300) 12/20/18 20:56 Venous Blood Potassium 5.3 mmol/L (3.6-5.2) H 12/20/18 20:51 Influenza Typ A,B (EIA) Negative for flu a/b (NEGATIVE) 12/20/18 23:35 Discharge Exam - Head Exam Head Exam: NORMOCEPHALIC - Eye Exam Eye Exam: Normal appearance Pupil Exam: NORMAL ACCOMODATION - ENT Exam ENT Exam: Normal Exam - Neck Exam Neck exam: Normal Inspection - Respiratory Exam Respiratory Exam: Decreased Breath Sounds - Cardiovascular Exam Cardiovascular Exam: REGULAR RHYTHM - GI/Abdominal Exam GI & Abdominal Exam: Normal Bowel Sounds - Extremities Exam Extremities exam: tenderness - Back Exam Back exam: vertebral tenderness - Psychiatric Exam Psychiatric exam: Depressed - Skin Skin Exam: Dry Discharge Plan - Follow Up Plan Condition: STABLE Disposition: HOME/ ROUTINE Instructions: Heart Failure, Adult (DC), Diverticulosis (DC), Pleural Effusion (DC), Dialysis and Diet Additional Instructions: FOLLOW UP WITH PRIMARY MEDICAL DOCTOR IN HIS OFFICE CONTINUE HOME MEDICATION ACTIVITY TOLERATED CALL DR ARANDA OR GO TO THE EMERGENCY ROOM IF SYMPTOM RETURN OR WORSENING SEGUIRSE CON EL MDICO PRIMARIO EN CASAS OFICINA CONTINUAR MEDICAMENTOS PARA EL HOGAR LA ACTIVIDAD LEXI TOLERADA LLAME AL DR. ARANDA O VAYA A LA AKASH DE EMERGENCIA SI EL SNTOMA DEVUELVE O CONSIDERA Referrals: Valdez Aranda MD [Staff Provider] - Kanika Diaz MD [Staff Provider] - Efren Mei MD [Staff Provider] - Francisco Javier Guaman MD [Staff Provider] -
--- NOTE | 2018-12-28 10:03 | CARD ---
APPROVED REPORT Date of service: 12/21/2018 EKG Measurement Heart [id number] <Conclusion> Normal sinus rhythm Possible Left atrial enlargement Left anterior fascicular block Septal infarct, age undetermined Abnormal ECG
== END 2018-12-26 16:48 | disposition home or self-care (01) | DRG 291 ==
LOC: C.ER 20:04 → C.9E 23:40 → C.5S 23:58
PROVIDERS: ADMIT Internal Medicine; ATTEND Internal Medicine
PROC: 5A1D70Z Performance of Urinary Filtration, Intermittent, Less than 6 Hours Per Day (ICD-10-PCS; principal; 2018-12-22)
DX: I13.2 Hypertensive heart and chronic kidney disease with heart failure and with stage 5 chronic kidney disease, or end stage renal disease (principal); I50.33 Acute on chronic diastolic (congestive) heart failure; N18.6 End stage renal disease; G92 Toxic encephalopathy; J44.1 Chronic obstructive pulmonary disease with (acute) exacerbation; N10 Acute pyelonephritis; K57.90 Diverticulosis of intestine, part unspecified, without perforation or abscess without bleeding; K59.00 Constipation, unspecified; Z51.5 Encounter for palliative care; Z99.2 Dependence on renal dialysis; K76.0 Fatty (change of) liver, not elsewhere classified; Z86.73 Personal history of transient ischemic attack (TIA), and cerebral infarction without residual deficits; D63.1 Anemia in chronic kidney disease; E11.22 Type 2 diabetes mellitus with diabetic chronic kidney disease; E78.00 Pure hypercholesterolemia, unspecified; E11.65 Type 2 diabetes mellitus with hyperglycemia; E11.42 Type 2 diabetes mellitus with diabetic polyneuropathy; K21.9 Gastro-esophageal reflux disease without esophagitis; F03.90 Unspecified dementia, unspecified severity, without behavioral disturbance, psychotic disturbance, mood disturbance, and anxiety; Z79.4 Long term (current) use of insulin; H54.62 Unqualified visual loss, left eye, normal vision right eye; M19.90 Unspecified osteoarthritis, unspecified site; F32.9 Major depressive disorder, single episode, unspecified; F41.9 Anxiety disorder, unspecified

== ENCOUNTER 2019-01-28 07:16 | Inpatient (IN) | payer OTHER ==
[2019-01-28 07:16] VITALS: BMI 21.4
[2019-01-28 08:01] LABS: BASO % 0.5 % (0.0-2.0); EOS % 0.8 % (0.0-4.0); HEMOGLOBIN 11.3 g/dL (11.0-16.0); LYMPH # 0.6 K/uL (1.0-4.3); LYMPH % 10.4 % (20.0-40.0); MEAN CORPUSCULAR HGB CONC 31.5 g/dL (33.0-37.0); MEAN PLATELET VOLUME 10.2 fL (7.2-11.7); MONO # 0.6 K/uL (0.0-0.8); MONO % 10.8 % (0.0-10.0); NEUT # 4.3 K/uL (1.8-7.0); NEUT % 77.5 % (50.0-75.0); RBC 4.35 Mil/uL (3.80-5.20); RED CELL DISTRIBUTION WIDTH 19.7 % (11.5-14.5); WHITE BLOOD COUNT 5.6 K/uL (4.8-10.8)
[2019-01-28 08:06] LABS: MEAN CELL VOLUME 82.5 fL (81.0-99.0)
[2019-01-28 08:28] LABS: ALB/GLOB RATIO 1.5 (1.0-2.1); ALBUMIN 3.8 g/dL (3.5-5.0); CALCIUM 9.8 mg/dl (8.6-10.4)
[2019-01-28 08:41] LABS: VENOUS BLOOD GAS BASE EXCESS -3.8 mmol/L (0.0-2.0); VENOUS BLOOD GAS PCO2 39 mmHg (40-60); VENOUS BLOOD GAS PO2 81 mm/Hg (30-55); VENOUS BLOOD PH 7.35 (7.32-7.43)
--- NOTE | 2019-01-28 08:53 | C.PDOC ---
History Of Present Illness 83 y/o female,w/PMhx of ESRD (on hemodialysis), brought to ER by ambulance from dialysis center complaining of chest pain and shortness of breath which began in the morning. Patient states that she has associated cough. Patient states that she has dialysis on Mondays, Wednesdays, and Fridays. She notes that she went to dialysis in the morning and the staff thought she was pale. The staff called EMS and patient was brought to ER. She states that she was not able to undergo dialysis. Currently, patient denies having chest pain, fever,chills, nausea, vomiting, and leg swelling. Time Seen by Provider: 01/28/19 07:19 Chief Complaint (Nursing): Chest Pain History Per: Patient History/Exam Limitations: no limitations Onset/Duration Of Symptoms: Hrs Current Symptoms Are (Timing): Still Present Severity: Moderate Past Medical History Reviewed: Historical Data, Nursing Documentation, Vital Signs Vital Signs: Last Vital Signs Temp 98.3 F 01/28/19 07:37 Pulse 100 H 01/28/19 07:37 Resp 22 01/28/19 07:37 BP 191/76 H 01/28/19 07:37 Pulse Ox 95 01/28/19 07:37 - Medical History PMH: Anxiety, Arthritis, Asthma, Bronchitis, Cardia Arrhythmia, CHF, COPD, Dementia, Depression, Diabetes (type 2), Emphysema, Fractures, HTN, Hypercholesterolemia, Migraine, End Stage Renal Disease (ESRD), Chronic Kidney Disease, TIA Other Surgeries: Hx of surgeries - [facility] Procedures (12/20/18) ASSISTANCE WITH RESPIRATORY VENTILATION, 24-96 HRS, CPAP (11/01/16) BYPASS RIGHT BRACHIAL ARTERY TO UP ARM VEIN, OPEN APPROACH (10/27/18) FLUOROSCOPY OF INFERIOR VENA CAVA, GUIDANCE (10/27/18) FLUOROSCOPY OF SUPERIOR VENA CAVA, GUIDANCE (10/27/18) INSERTION OF INFUSION DEV INTO INF VENA CAVA, PERC APPROACH (10/27/18) INSERTION OF INFUSION DEV INTO SUP VENA CAVA, PERC APPROACH (10/27/18) INSERTION OF VAD INTO CHEST SUBCU/FASCIA, PERC APPROACH (10/27/18) PERFORMANCE OF URINARY FILTRATION, MULTIPLE (12/24/16) PERFORMANCE OF URINARY FILTRATION, SINGLE (11/01/16) REMOVAL OF INFUSION DEVICE FROM LOWER VEIN, PERC APPROACH (10/27/18) ULTRASONOGRAPHY OF LEFT JUGULAR VEINS, GUIDANCE (10/27/18) Family History: States: No Known Family Hx - Social History Hx Tobacco Use: No Hx Alcohol Use: No Hx Substance Use: No - Immunization History Hx Tetanus Toxoid Vaccination: Yes Hx Influenza Vaccination: Yes Hx Pneumococcal Vaccination: Yes Review Of Systems Constitutional: Negative for: Fever, Chills Cardiovascular: Positive for: Chest Pain (currently resolved) Respiratory: Positive for: Cough, Shortness of Breath Gastrointestinal: Negative for: Nausea, Vomiting, Abdominal Pain Physical Exam - Physical Exam Appears: Non-toxic, No Acute Distress Skin: Normal Color, Warm, Dry Head: Atraumatic, Normacephalic Eye(s): bilateral: Normal Inspection Ear(s): Bilateral: Normal Nose: Normal Oral Mucosa: Moist Throat: Normal, No Erythema, No Exudate Neck: Supple Chest: Symmetrical, Other (dialysis catheter to left chest) Cardiovascular: Rhythm Regular Respiratory: No Rhonchi, No Wheezing, Other (some faint crackles to left base) Gastrointestinal/Abdominal: Normal Exam, Soft, No Tenderness, No Guarding, No Rebound Extremity: Normal ROM Neurological/Psych: Oriented x3, Normal Speech ED Course And Treatment - Laboratory Results Result Diagrams: 01/28/19 07:57 01/28/19 07:57 Lab Results: pO2 81 mm/Hg (30-55) H 01/28/19 08:36 VBG pH 7.35 (7.32-7.43) 01/28/19 08:36 VBG pCO2 39 mmHg (40-60) L 01/28/19 08:36 VBG HCO3 21.9 mmol/L 01/28/19 08:36 VBG Total CO2 22.7 mmol/L (22-28) 01/28/19 08:36 VBG O2 Sat (Calc) 96.5 % (40-65) H 01/28/19 08:36 VBG Base Excess -3.8 mmol/L (0.0-2.0) L 01/28/19 08:36 VBG Potassium 4.6 mmol/L (3.6-5.2) 01/28/19 08:36 Sodium 136.0 mmol/l (132-148) 01/28/19 08:36 Chloride 103.0 mmol/L (98-107) 01/28/19 08:36 Glucose 454 mg/dl (65-105) H* D 01/28/19 08:36 Lactate 1.2 mmol/L (0.7-2.1) 01/28/19 08:36 Crit Value Called To Dr padgett 01/28/19 08:36 Crit Value Called By Oskar oneil crt 01/28/19 08:36 Crit Value Read Back Y 01/28/19 08:36 Blood Gas Notified Time 841 01/28/19 08:36 Total Bilirubin 0.8 mg/dL (0.2-1.3) 01/28/19 07:57 AST 41 U/L (14-36) H D 01/28/19 07:57 ALT 50 U/L (9-52) 01/28/19 07:57 Alkaline Phosphatase 138 U/L (38-126) H 01/28/19 07:57 Total Protein 6.3 g/dL (6.3-8.3) 01/28/19 07:57 Albumin 3.8 g/dL (3.5-5.0) 01/28/19 07:57 Globulin 2.6 gm/dL (2.2-3.9) 01/28/19 07:57 Albumin/Globulin Ratio 1.5 (1.0-2.1) 01/28/19 07:57 ECG: Interpreted By Me, Viewed By Me Interpretation Of ECG: NSR wirh left axis deviation, no ST elevation, and T wave inversions in. Leads I and AVL Rate From EC (7:32 AM) O2 Sat by Pulse Oximetry: 95 (RA) Pulse Ox Interpretation: Normal - Other Rad CXR X-Ray: Viewed By Me, Read By Radiologist Interpretation: Date of service: 01/28/2019. HISTORY: chest pain. COMPARISON: Chest radiographs 12/25/2018. TECHNIQUE: 1 view obtained. FINDINGS: LUNGS: Left permanent dialysis catheter not changed in position significantly. Wall stent again seen at the region of the proximal right subclavian vein/innominate vein. Positioning is that of a reversed apical lordotic poor definition of the hemidiaphragms demonstrated. Lateral basilar atelectasis or infiltrates are not excluded at the left greater than right bases. PLEURA: No effusions not felt to be present but difficult to exclude bilaterally. No pneumothorax bilaterally. CARDIOVASCULAR: No aortic atherosclerotic calcification present. Stable cardiac size. No pulmonary vascular congestion. OSSEOUS STRUCTURES: No significant abnormalities. VISUALIZED UPPER ABDOMEN: Normal. OTHER FINDINGS: None. IMPRESSION: Reversed apical lordotic capture limits evaluation of the bases in particular with bilateral basilar airspace disease not excluded and minimal pleural effusions though effusions are not felt to be present. Examination otherwise stable in the interval. Medical Decision Making Medical Decision Making: Plan: --Labs --ECG --CXR Results reviewed and discussed with patient and family. Will admit. Case discussed with PMD Dr. Mccracken, accepts patient for admission to his service. Disposition - Disposition Disposition: HOSPITALIZED Disposition Time: 09:48 Condition: STABLE - Clinical Impression Clinical Impression: Chest pain, CHF (congestive heart failure) - Scribe Statement The provider has reviewed the documentation as recorded by the [place]lower[place] Alie Tam Provider Attestation: All medical record entries made by the Scribe were at my direction and personally dictated by me. I have reviewed the chart and agree that the record accurately reflects my personal performance of the history, physical exam, medical decision making, and the department course for this patient. I have also personally directed, reviewed, and agree with the discharge instructions and disposition.
[2019-01-28 08:57] LABS: TROPONIN I 0.158 ng/mL (0.00-0.120)
--- NOTE | 2019-01-28 09:18 | RAD ---
Date of service: 01/28/2019 HISTORY: chest pain COMPARISON: Chest radiographs 12/25/2018. TECHNIQUE: 1 view obtained. FINDINGS: LUNGS: Left permanent dialysis catheter not changed in position significantly. Wall stent again seen at the region of the proximal right subclavian vein/innominate vein. Positioning is that of a reversed apical lordotic poor definition of the hemidiaphragms demonstrated. Lateral basilar atelectasis or infiltrates are not excluded at the left greater than right bases. PLEURA: No effusions not felt to be present but difficult to exclude bilaterally. No pneumothorax bilaterally. CARDIOVASCULAR: No aortic atherosclerotic calcification present. Stable cardiac size. No pulmonary vascular congestion. OSSEOUS STRUCTURES: No significant abnormalities. VISUALIZED UPPER ABDOMEN: Normal. OTHER FINDINGS: None. IMPRESSION: Reversed apical lordotic capture limits evaluation of the bases in particular with bilateral basilar airspace disease not excluded and minimal pleural effusions though effusions are not felt to be present. Examination otherwise stable in the interval.
[2019-01-28] MEDS ORDERED: (Novolin R) Insulin Human Regular 100 units/ml vial IVP ONE (10:18)
[2019-01-28] MEDS: (Novolog) Insulin Aspart, Recombinant 100 u/ml 10 ml vial SC SCH (18:32)
--- NOTE | 2019-01-28 22:46 | CP.PCM.HP ---
History of Present Illness - History of Present Illness History of Present Illness: 83-year-old female who developed chest pain at a dialysis center was transported to the [facility] emergency room for evaluation. Lab studies in the ER reveal elevated troponin levels and elevated glucose level. EKG demonstrates a left axis deviation. Chest pain subsided in the emergency room however patient was in the of further observation and a dialysis treatment. past history includes numerous admissions for uncontrolled diabetes, end-stage renal disease and transient cerebral ischemia. Consultation was requested with Dr. Diaz the patient's master in chancery Present on Admission - Present on Admission Any Indicators Present on Admission: No History of DVT/PE: No History of Uncontrolled Diabetes: Yes Urinary Catheter: No Decubitus Ulcer Present: No History Surgical Site Infection Following: None Review of Systems - Review of Systems Systems not reviewed;Unavailable: Unstable Vital Signs, Dementia - EENT Eyes: Blurred Vision Nose/Mouth/Throat: Dry Mouth - Cardiovascular Cardiovascular: Chest Pain - Respiratory Respiratory: Dyspnea - Gastrointestinal Gastrointestinal: Heartburn - Reproductive: Female Reproductive:Female: Post Menopausal - Integumentary Integumentary: Dry Skin - Neurological Neurological: Numbness - Psychiatric Psychiatric: Depression Past Patient History - Infectious Disease Hx of Infectious Diseases: None - Tetanus Immunizations Tetanus Immunization: Unknown, Up to Date - Past Medical History & Family History Past Medical History?: Yes - Past Social History Smoking Status: Never Smoked Chewing Tobacco Use: No Cigar Use: No Alcohol: None Drugs: Denies Home Situation {Lives}: Alone - CARDIAC Hx Cardia Arrhythmia: Yes Hx Congestive Heart Failure: Yes Hx Hypercholesterolemia: Yes Hx Hypertension: Yes - PULMONARY Hx Asthma: Yes Hx Bronchitis: Yes Hx Chronic Obstructive Pulmonary Disease (COPD): Yes Hx Emphysema: Yes - NEUROLOGICAL Hx Dementia: Yes Hx Migraine: Yes Hx Transient Ischemic Attacks (TIA): Yes - HEENT Hx HEENT Problems: Yes Hx Blind: Yes (Left eye.) - RENAL Hx Chronic Kidney Disease: Yes - ENDOCRINE/METABOLIC Hx Endocrine Disorders: Yes Hx Diabetes Mellitus Type 2: Yes - INTEGUMENTARY Hx Dermatological Problems: Yes Hx Cellulitis: Yes Hx Eczema: Yes - MUSCULOSKELETAL/RHEUMATOLOGICAL Hx Arthritis: Yes Hx Fractures: Yes - GASTROINTESTINAL Hx Gastrointestinal Disorders: Yes Hx Gastroesophageal Reflux: Yes Hx Hemorrhoids: Yes - GENITOURINARY/GYNECOLOGICAL Hx Genitourinary Disorders: Yes Hx Urinary Tract Infection: Yes Other/Comment: Rt. AVF - PSYCHIATRIC Hx Anxiety: Yes Hx Depression: Yes Hx Substance Use: No - SURGICAL HISTORY Hx Surgeries: Yes Hx Arteriovenous Shunt: Yes (right arm) - ANESTHESIA Hx Anesthesia: Yes Hx Anesthesia Reactions: No Hx Malignant Hyperthermia: No Meds Allergies/Adverse Reactions: Allergies Allergy/AdvReac Type Severity Reaction Status Date / Time No Known Allergies Allergy Verified 01/28/19 07:42 Physical Exam - Constitutional Appears: Chronically Ill - Head Exam Head Exam: NORMOCEPHALIC - Eye Exam Eye Exam: Normal appearance Pupil Exam: NORMAL ACCOMODATION - ENT Exam ENT Exam: Normal Exam - Neck Exam Neck exam: Positive for: Normal Inspection - Respiratory Exam Respiratory Exam: Decreased Breath Sounds - Cardiovascular Exam Cardiovascular Exam: REGULAR RHYTHM - GI/Abdominal Exam GI & Abdominal Exam: Normal Bowel Sounds - Rectal Exam Rectal Exam: Deferred - Extremities Exam Extremities exam: Positive for: tenderness - Neurological Exam Neurological exam: Altered - Psychiatric Exam Psychiatric exam: Depressed - Skin Skin Exam: Dry Results - Vital Signs Recent Vital Signs: Last Vital Signs Temp 97.5 F L 01/28/19 18:29 Pulse 94 H 01/28/19 18:29 Resp 18 01/28/19 18:29 BP 125/69 01/28/19 18:29 Pulse Ox 95 01/28/19 18:43 - Labs Result Diagrams: 01/28/19 07:57 01/28/19 07:57 Labs: Laboratory Results - last 24 hr 01/28/19 01/28/19 01/28/19 07:49 07:57 07:57 WBC 5.6 RBC 4.35 Hgb 11.3 Hct 35.9 MCV 82.5 D MCH 26.0 L MCHC 31.5 L RDW 19.7 H Plt Count 188 MPV 10.2 Neut % (Auto) 77.5 H Lymph % (Auto) 10.4 L [place] % (Auto) 10.8 H Eos % (Auto) 0.8 Baso % (Auto) 0.5 Neut # (Auto) 4.3 Lymph # (Auto) 0.6 L [place] # (Auto) 0.6 Eos # (Auto) 0.0 Baso # (Auto) 0.0 pO2 VBG pH VBG pCO2 VBG HCO3 VBG Total CO2 VBG O2 Sat (Calc) VBG Base Excess VBG Potassium Glucose Lactate Crit Value Called To Crit Value Called By Crit Value Read Back Blood Gas Notified Time Sodium 135 Potassium 5.0 Chloride 102 Carbon Dioxide 22 Anion Gap 15 BUN 64 H Creatinine 5.9 H Est GFR ( Amer) 8 Est GFR (Non-Af Amer) 7 POC Glucose (mg/dL) 478 H* Random Glucose 465 H* D Calcium 9.8 Total Bilirubin 0.8 AST 41 H D ALT 50 Alkaline Phosphatase 138 H Troponin I 0.1580 H* NT-Pro-B Natriuret Pep 97847 H Total Protein 6.3 Albumin 3.8 Globulin 2.6 Albumin/Globulin Ratio 1.5 Venous Blood Potassium B-Hydroxybutyrate 1.14 H 01/28/19 01/28/19 01/28/19 08:36 10:13 12:13 WBC RBC Hgb Hct MCV MCH MCHC RDW Plt Count MPV Neut % (Auto) Lymph % (Auto) [place] % (Auto) Eos % (Auto) Baso % (Auto) Neut # (Auto) Lymph # (Auto) [place] # (Auto) Eos # (Auto) Baso # (Auto) pO2 81 H VBG pH 7.35 VBG pCO2 39 L VBG HCO3 21.9 VBG Total CO2 22.7 VBG O2 Sat (Calc) 96.5 H VBG Base Excess -3.8 L VBG Potassium 4.6 Glucose 454 H* D Lactate 1.2 Crit Value Called To Dr padgett Crit Value Called By Oskar oneil technology administrator Crit Value Read Back Y Blood Gas Notified Time 841 Sodium 136.0 Potassium Chloride 103.0 Carbon Dioxide Anion Gap BUN Creatinine Est GFR ( Amer) Est GFR (Non-Af Amer) POC Glucose (mg/dL) 443 H* 199 H Random Glucose Calcium Total Bilirubin AST ALT Alkaline Phosphatase Troponin I NT-Pro-B Natriuret Pep Total Protein Albumin Globulin Albumin/Globulin Ratio Venous Blood Potassium 4.6 B-Hydroxybutyrate 01/28/19 14:44 WBC RBC Hgb Hct MCV MCH MCHC RDW Plt Count MPV Neut % (Auto) Lymph % (Auto) [place] % (Auto) Eos % (Auto) Baso % (Auto) Neut # (Auto) Lymph # (Auto) [place] # (Auto) Eos # (Auto) Baso # (Auto) pO2 VBG pH VBG pCO2 VBG HCO3 VBG Total CO2 VBG O2 Sat (Calc) VBG Base Excess VBG Potassium Glucose Lactate Crit Value Called To Crit Value Called By Crit Value Read Back Blood Gas Notified Time Sodium Potassium Chloride Carbon Dioxide Anion Gap BUN Creatinine Est GFR ( Amer) Est GFR (Non-Af Amer) POC Glucose (mg/dL) 240 H Random Glucose Calcium Total Bilirubin AST ALT Alkaline Phosphatase Troponin I NT-Pro-B Natriuret Pep Total Protein Albumin Globulin Albumin/Globulin Ratio Venous Blood Potassium B-Hydroxybutyrate Assessment & Plan (1) Chest pain Status: Acute (2) Acute on chronic heart failure Status: Acute (3) Altered mental status Status: Acute (4) Arthralgia Status: Acute (5) Diabetes mellitus Status: Acute Priority: Medium (6) Elevated troponin Status: Acute (7) Pleural effusion Status: Acute (8) ESRD (end stage renal disease) on dialysis Status: Chronic Priority: Medium
--- NOTE | 2019-01-29 02:49 | CON ---
DATE: 01/28/2019 HISTORY OF PRESENT ILLNESS: This is an 83-year-old lady with a past history of hypertension, diabetes, end-stage renal disease, arthritis, pneumonitis, CHF, on dialysis regime, now admitted with a history of increasing shortness of breath, weakness, dyspnea, chest discomfort, poor mobility. There has been no vomiting, no seizures, no hemoptysis. ALLERGIES: SHE HAS NO HISTORY OF KNOWN ALLERGIES. PAST MEDICAL HISTORY: As stated above includes hypertension, chronic renal failure, diabetes mellitus, arthritis, dialysis treatment. FAMILY HISTORY: No significant family history reported. REVIEW OF SYSTEMS: As reported above with no seizures. No hemoptysis. No vomiting. Has general weakness, motor weakness, general debility. She is on dialysis regularly and on medication to control the diseases including diabetes mellitus. PHYSICAL EXAMINATION: GENERAL: She is in bed. She is drowsy, on dialysis, afebrile. VITAL SIGNS: Blood pressure 169/105, temperature 97.7, pulse 94, respirations 22, hemoglobin oxygen saturation on room air 98%. NECK: Supple. No lymphadenopathy or thyroid abnormality detected on clinical examination. HEART: Regular. No gallop rhythm. LUNGS: Diminished breath sounds throughout lung bases, occasional crackle. ABDOMEN: Soft. EXTREMITIES: Legs, no edema. LABORATORY DATA: Her white count is 5600, hemoglobin 11.3, platelet count 188,000. Sodium 135, potassium 5, chloride 102, anion gap 15, BUN 64, creatinine 5.9, glucose 478 on admission and now it is 199, troponin is 0.1580, proBNP is 47,100. Venous blood potassium is 4.6. Chest x-ray shows dialysis catheter in place with bilateral basal congestion consistent with CHF. ABG's reported to show pH of 7.35, pCO2 of 39, pO2 of 81. Chest x-ray shows congestive changes. The patient's hemoglobin oxygen saturation on room air on admission is 98%. The patient is now on dialysis. IMPRESSION: Respiratory insufficiency, congestive heart failure, history of asthma and bronchitis, hypertensive cardiovascular disease, end-stage renal failure, the patient on dialysis, arthritis. PLAN: The patient is started on diabetic therapy including insulin therapy and is on treatment for hypertension, and she has been started on dialysis with a view to remove about 3 liters of fluid as permissible by her blood pressure level and her clinical status. Check cardiac enzymes and further tests as necessary and consultants opinion as needed. Francisco Javier Guaman MD
[2019-01-29] MEDS: Albuterol 0.042% Inhal Sol (1.25 mg/3 mL) UD INH SCH ×3 (07:10→19:18)
[2019-01-29] MEDS: (Novolog) Insulin Aspart, Recombinant 100 u/ml 10 ml vial SC SCH ×2 (08:06→17:13)
[2019-01-29 08:08] LABS: BASO % 0.6 % (0.0-2.0); EOS # 0.2 K/uL (0.0-0.7); HEMOGLOBIN 11.7 g/dL (11.0-16.0); LYMPH # 1.4 K/uL (1.0-4.3); LYMPH % 27.4 % (20.0-40.0); MEAN CORPUSCULAR HEMOGLOBIN 26.1 pg (27.0-31.0); MEAN CORPUSCULAR HGB CONC 31.5 g/dL (33.0-37.0); MEAN PLATELET VOLUME 10.5 fL (7.2-11.7); MONO # 0.7 K/uL (0.0-0.8); MONO % 14.5 % (0.0-10.0); NEUT # 2.6 K/uL (1.8-7.0); NEUT % 52.5 % (50.0-75.0); NRBC % 0.1 % (0.0-2.0); RBC 4.5 Mil/uL (3.80-5.20); RED CELL DISTRIBUTION WIDTH 19.4 % (11.5-14.5); WHITE BLOOD COUNT 4.9 K/uL (4.8-10.8)
[2019-01-29 08:49] LABS: B-TYPE NATRIURETIC PEPTIDE > 35000 pg/mL (0-900)
--- NOTE | 2019-01-29 09:19 | CP.PCM.CON ---
History of Present Illness - History of Present Illness History of Present Illness: Palliative consult requested by Doctor Mccracken for goals of care discussion Patient is a 83 yo lady admitted from HD where she was noted to be pale by the staff. Patient complained of some chest discomfort since morning and some cough. Patient BIBA. CXR showed CHF. Renal consult called. Removal of about 3 L was advised if permitted by BP. In ED BS 454. Patient started on Novolin . Today, BS is WNL. PMH: ESRD with HD, CHF, COPD, DM, TIA Soc. Hx: lives alone, denies tobacco use, denies alcohol use Fam. Hx: denied Review of Systems - Constitutional Constitutional: Weakness - EENT Eyes: absent: As Per HPI, Blind Spots, Blurred Vision, Change in Vision, Decreased Night Vision, Diplopia, Discharge, Dry Eye, Exophthalmos, Floaters, Irritation, Itchy Eyes, Loss of Peripheral Vision, Pain, Photophobia, Requires Corrective Lenses, Sees Flashes, Spots in Vision, Tunnel Vision, Other Visual Disturbances, Loss of Vision, Other Ears: absent: As Per HPI, Decreased Hearing, Ear Discharge, Ear Pain, Tinnitus, Abnormal Hearing, Disequilibrium, Dizziness, Other Nose/Mouth/Throat: absent: As Per HPI, Epistaxis, Nasal Congestion, Nasal Discharge, Nasal Obstruction, Nasal Trauma, Nose Pain, Post Nasal Drip, Sinus Pain, Sinus Pressure, Bleeding Gums, Change in Voice, Dental Pain, Dry Mouth, Dysphagia, Halitosis, Hoarsness, Lip Swelling, Mouth Lesions, Mouth Pain, Odynophagia, Sore Throat, Throat Swelling, Tongue Swelling, Facial Pain, Neck Pain, Neck Mass, Other - Breasts Breasts: absent: As Per HPI, Change in Shape, Mass, Pain, Nipple Discharge, Nipple Inversion, Skin Changes, Swelling, Other - Cardiovascular Cardiovascular: Lightheadedness - Respiratory Respiratory: Dyspnea on Exertion - Gastrointestinal Gastrointestinal: absent: As Per HPI, Abdominal Pain, Belching, Bloating, Change in Bowel Habits, Change in Stool Character, Coffee Ground Emesis, Constipation, Cramping, Diarrhea, Dyspepsia, Dysphagia, Early Satiety, Excessive Flatus, Fecal Incontinence, Heartburn, Hematemesis, Hematochezia, Loose Stools, Melena, Nausea, Odynophagia, Temesmus, Vomiting, Other - Genitourinary Genitourinary: Other Additional comments: On HD - Reproductive: Female Reproductive:Female: Post Menopausal - Menstruation Menstruation: Post Menopausal - Musculoskeletal Musculoskeletal: Limited Range of Motion - Integumentary Additional comments: right arm edema, redness - Neurological Neurological: absent: As Per HPI, Abnormal Gait, Abnormal Hearing, Abnormal Movements, Abnormal Speech, Behavioral Changes, Burning Sensations, Confusion, Convulsions, Disequilibrium, Dizziness, Numbness, Focal Weakness, Frequent Falls, Headaches, Lack of Coordination, Loss of Vision, Memory Loss, Paresthesias, Radicular Pain, Restless Legs, Sensory Deficit, Syncope, Tingling, Tremor, Vertigo, Weakness, Other Visual Disturbances, Other - Psychiatric Psychiatric: absent: As Per HPI, Abnormal Sleep Pattern, Anhedonia, Anxiety, Aud itory Hallucinations, Behavioral Changes, Change in Appetite, Change in Libido, Confusion, Depression, Difficulty Concentrating, Hallucinations, Homicidal Ideation, Hopelessness, Irritability, Memory Loss, Mood Swings, Panic Attacks, Paranoia, Suicidal Ideation, Visual Hallucinations, Tactile Hallucinations, Other - Endocrine Endocrine: absent: As Per HPI, Change in Body Appearance, Change in Libido, Cold Intolorance, Deepening of Voice, Excessive Sweating, Fatigue, Flushing, Heat Intolorance, Increase in Ring/Shoe/Hat Size, Palpitations, Polydipsia, Poly phagia, Polyuria, Other - Hematologic/Lymphatic Hematologic: absent: As Per HPI, Easy Bleeding, Easy Bruising, Lymphadenopathy, Other Past Patient History - Infectious Disease Hx of Infectious Diseases: None - Tetanus Immunizations Tetanus Immunization: Unknown, Up to Date - Past Medical History & Family History Past Medical History?: Yes - Past Social History Smoking Status: Never Smoked Chewing Tobacco Use: No Cigar Use: No Alcohol: None Drugs: Denies Home Situation {Lives}: Alone - CARDIAC Hx Cardia Arrhythmia: Yes Hx Congestive Heart Failure: Yes Hx Hypercholesterolemia: Yes Hx Hypertension: Yes - PULMONARY Hx Asthma: Yes Hx Bronchitis: Yes Hx Chronic Obstructive Pulmonary Disease (COPD): Yes Hx Emphysema: Yes - NEUROLOGICAL Hx Dementia: Yes Hx Migraine: Yes Hx Transient Ischemic Attacks (TIA): Yes - HEENT Hx HEENT Problems: Yes Hx Blind: Yes (Left eye.) - RENAL Hx Chronic Kidney Disease: Yes - ENDOCRINE/METABOLIC Hx Endocrine Disorders: Yes Hx Diabetes Mellitus Type 2: Yes - INTEGUMENTARY Hx Dermatological Problems: Yes Hx Cellulitis: Yes Hx Eczema: Yes - MUSCULOSKELETAL/RHEUMATOLOGICAL Hx Arthritis: Yes Hx Fractures: Yes - GASTROINTESTINAL Hx Gastrointestinal Disorders: Yes Hx Gastroesophageal Reflux: Yes Hx Hemorrhoids: Yes - GENITOURINARY/GYNECOLOGICAL Hx Genitourinary Disorders: Yes Hx Urinary Tract Infection: Yes Other/Comment: Rt. AVF - PSYCHIATRIC Hx Anxiety: Yes Hx Depression: Yes Hx Substance Use: No - SURGICAL HISTORY Hx Surgeries: Yes Hx Arteriovenous Shunt: Yes (right arm) - ANESTHESIA Hx Anesthesia: Yes Hx Anesthesia Reactions: No Hx Malignant Hyperthermia: No Meds Allergies/Adverse Reactions: Allergies Allergy/AdvReac Type Severity Reaction Status Date / Time No Known Allergies Allergy Verified 01/28/19 07:42 - Medications Medications: Current Medications Albuterol Sulfate (Albuterol 0.042% Inhal Luisa (1.25mg/3ml) Ud) 1.25 mg INH RTID [facility] Aspirin (Aspirin Chewable) 81 mg PO DAILY [facility] Atenolol (Tenormin) 50 mg PO DAILY [facility] Clopidogrel Bisulfate (Plavix) 75 mg PO DAILY [facility] Donepezil HCl (Aricept) 10 mg PO HS [facility] Last Admin: 01/28/19 21:36 Dose: 10 mg Famotidine (Pepcid) 20 mg PO DAILY [facility] Gabapentin (Neurontin) 300 mg PO DAILY [facility] Hydralazine HCl (Apresoline) 25 mg PO TID [facility] Last Admin: 01/28/19 18:33 Dose: 25 mg Ceftriaxone Sodium 1 gm/ (Sodium Chloride) 100 mls @ 100 mls/hr IVPB Q24H [facility]; Protocol Last Admin: 01/29/19 00:02 Dose: 100 mls/hr Insulin Aspart (Novolog) 14 unit SC BIDAC [facility] Last Admin: 01/29/19 08:06 Dose: 14 unit Losartan Potassium (Cozaar) 50 mg PO DAILY [facility] Montelukast Sodium (Singulair) 10 mg PO DAILY [facility] Quetiapine Fumarate (Seroquel) 25 mg PO DAILY [facility] Rosuvastatin Calcium (Crestor) 5 mg PO HS [facility] Last Admin: 01/28/19 21:36 Dose: 5 mg Sevelamer Carbonate (Renvela) 800 mg PO TIDCC [facility] Last Admin: 01/29/19 08:05 Dose: 800 mg Physical Exam - Constitutional Appears: No Acute Distress, Chronically Ill - Head Exam Head Exam: ATRAUMATIC, NORMAL INSPECTION, NORMOCEPHALIC - Eye Exam Eye Exam: EOMI - ENT Exam ENT Exam: Mucous Membranes Moist, Normal Exam - Neck Exam Neck exam: Positive for: Normal Inspection - Respiratory Exam Respiratory Exam: Decreased Breath Sounds, NORMAL BREATHING PATTERN - Cardiovascular Exam Cardiovascular Exam: Tachycardia, Irregular Rhythm, +S1, +S2 - GI/Abdominal Exam GI & Abdominal Exam: Normal Bowel Sounds, Soft - Rectal Exam Rectal Exam: Deferred - Extremities Exam Additional comments: right arm edema, AV fistula, + thrill and bruit - Back Exam Back exam: NORMAL INSPECTION - Neurological Exam Neurological exam: Alert, Normal Gait, Oriented x3 - Psychiatric Exam Psychiatric exam: Normal Affect, Normal Mood - Skin Skin Exam: Dry, Normal Color, Warm Results - Vital Signs Recent Vital Signs: Last Vital Signs Temp 97.7 F 01/29/19 07:00 Pulse 87 01/29/19 07:00 Resp 20 01/29/19 07:00 BP 170/77 H 01/29/19 07:00 Pulse Ox 98 01/29/19 07:00 - Labs Result Diagrams: 01/29/19 07:57 01/29/19 07:57 Labs: Laboratory Results - last 24 hr 01/28/19 01/28/19 01/28/19 10:13 12:13 14:44 WBC RBC Hgb Hct MCV MCH MCHC RDW Plt Count MPV Neut % (Auto) Lymph % (Auto) [place] % (Auto) Eos % (Auto) Baso % (Auto) Neut # (Auto) Lymph # (Auto) [place] # (Auto) Eos # (Auto) Baso # (Auto) Sodium Potassium Chloride Carbon Dioxide POC Glucose (mg/dL) 443 H* 199 H 240 H Troponin I NT-Pro-B Natriuret Pep 01/28/19 01/29/19 01/29/19 21:11 06:10 07:57 WBC 4.9 RBC 4.50 Hgb 11.7 Hct 37.3 MCV 83.0 MCH 26.1 L MCHC 31.5 L RDW 19.4 H Plt Count 196 MPV 10.5 Neut % (Auto) 52.5 Lymph % (Auto) 27.4 [place] % (Auto) 14.5 H Eos % (Auto) 5.0 H Baso % (Auto) 0.6 Neut # (Auto) 2.6 Lymph # (Auto) 1.4 [place] # (Auto) 0.7 Eos # (Auto) 0.2 Baso # (Auto) 0.0 Sodium Potassium Chloride Carbon Dioxide POC Glucose (mg/dL) 92 190 H Troponin I NT-Pro-B Natriuret Pep 01/29/19 07:57 WBC RBC Hgb Hct MCV MCH MCHC RDW Plt Count MPV Neut % (Auto) Lymph % (Auto) [place] % (Auto) Eos % (Auto) Baso % (Auto) Neut # (Auto) Lymph # (Auto) [place] # (Auto) Eos # (Auto) Baso # (Auto) Sodium 137 Potassium 4.3 Chloride 105 Carbon Dioxide 23 POC Glucose (mg/dL) Troponin I 0.1530 H* NT-Pro-B Natriuret Pep > 41638 H Assessment & Plan - Assessment and Plan (Free Text) Assessment: Palliative consult Full Code, there is no Advance Directive on chart, PPS 40% I reviewed medical records, all diagnostic studies, examined and interviewed p atient in the bed. NEURO:Patient is alert, oriented X 3, with speech that is clear and affect appr opriate. Patient looks puffy face, daughter at bed side feels the same. RESP: Breath sounds diminished to bases, no cough, no SOB, O2Sat 97 % RA. HEART:BP 170/77, HR 87, denies chest discomfort/tightness. GI: Abdomen soft, denies constipation, appetite great. : Urinates small amount, last HD yesterday after admission to [facility]. EXTREM:Right arm and hand swollen. Old AV fistula repositioned higher up from where it was before, 1 month ago. + thrill and bruit. Per daughter, fistula was checked and patient instructed to keep her arm elevated. Whole arm is warm to touch and swollen. Patient favors right arm, complains of mild pain. Able to move all fingers, able to use right hand to write. PAIN: Mild pain of 4/10 to right arm. Tylenol PO on board. Goals of care discussed with patient and her daughter at bed side. Patient recalls the events prompting to this admission. She recalls feeling dizzy. Patient states feeling dizzy upon rising from bed, most of the days. Patient educated on slow rising from bed and sitting at the edge of the bed before standing up. Patient is concerned with her right arm and right hand swelling. She reports limited ability to use right arm due to mild pain. The condition has been going for about a month, since AV fistula was repositioned. Patient reports that in AM her right arm is much more swollen. Patient did not request pain meds for this condition. We discussed referral to vascular surgeon and patient and daughter agreed. I spoke to Doctor Nawaf and he agreed with Vascular surgeon consult. I put consult in for Doctor Mccormick. Code status discussed. Daughter admitted having no previous Documents signed by her mother. I offered more information on Code status and Advance Directive. Patient stated that if she loses capacity to make decisions she would want her daughter Nova, present at bed side, to be her surrogate decision maker. Advance Directive completed. Copy given to daughter. Patient chose to be Full Code at present. Impression * Orthostatic hypotension * Dizziness * Risk for fall * Right arm swelling with redness * Right arm AV nonfunctional * Right arm mild pain * Patient requests Full Code at present * Advance Directive completed Suggestion * Educate patient on slow rising from the bed. Instruct solderer electronic chavez use. * Promote safety * Vascular consult with Doctor Mccormick for right arm AV fistula ; * Elevate Right arm on 2 pillows when in bed * Full Code * Advance Directive copy on chart * Home discharge planing. Palliative care will remain on board as needed to assist in care of this patient. Advance Care planing 55 min.
--- NOTE | 2019-01-29 13:54 | RAD ---
Chest x-ray single frontal view HISTORY: Congestive heart failure. FINDINGS: Left permanent dialysis catheter not changed in position. Wall stent again seen at the region of the proximal right subclavian vein/innominate vein. Improved now mild venous congestion. Patchy increased markings at the left lung base with trace left pleural effusion. Bilateral hilar prominence. Enlarged ectatic aorta. Cardiomegaly. Degenerative changes in the spine. Impression: Improved now mild venous congestion. Patchy increased markings at the left lung base with trace left pleural effusion. Bilateral hilar prominence. Enlarged ectatic aorta. Cardiomegaly.
--- NOTE | 2019-01-29 18:54 | CP.PCM.CON ---
History of Present Illness - History of Present Illness History of Present Illness: Vascular Surgery: Anny Patient is a 83 yr old female with extensive PMH including HTN, HLD, DM, ESRD, COPD, Arrythmia, CHF, TIA, GERD who was admitted to [facility] with CHest pain and elevated troponins. Vascular surgery was consulted after patient endorses edema and intermittent discomfort in right arm with AVF. Patient denies motor weakness or difficulty using hand, temperature chages in hand, discoloration and sensory deficits to hand. 12 point FRANCISCO otherwise netgative PMH: HTN, HLD, DM, ESRD, COPD, arrythmia, TIA, GERD, CHF PSH: right arm AVF Meds: MAR reviewed All: NKDA Social: denies ETOH, tobacco and drug use Review of Systems - Review of Systems All systems: reviewed and no additional remarkable complaints except (as per HPI) Past Patient History - Infectious Disease Hx of Infectious Diseases: None - Tetanus Immunizations Tetanus Immunization: Unknown, Up to Date - Past Medical History & Family History Past Medical History?: Yes - Past Social History Smoking Status: Never Smoked Chewing Tobacco Use: No Cigar Use: No Alcohol: None Drugs: Denies Home Situation {Lives}: Alone - CARDIAC Hx Cardia Arrhythmia: Yes Hx Congestive Heart Failure: Yes Hx Hypercholesterolemia: Yes Hx Hypertension: Yes - PULMONARY Hx Asthma: Yes Hx Bronchitis: Yes Hx Chronic Obstructive Pulmonary Disease (COPD): Yes Hx Emphysema: Yes - NEUROLOGICAL Hx Dementia: Yes Hx Migraine: Yes Hx Transient Ischemic Attacks (TIA): Yes - HEENT Hx HEENT Problems: Yes Hx Blind: Yes (Left eye.) - RENAL Hx Chronic Kidney Disease: Yes - ENDOCRINE/METABOLIC Hx Endocrine Disorders: Yes Hx Diabetes Mellitus Type 2: Yes - INTEGUMENTARY Hx Dermatological Problems: Yes Hx Cellulitis: Yes Hx Eczema: Yes - MUSCULOSKELETAL/RHEUMATOLOGICAL Hx Arthritis: Yes Hx Fractures: Yes - GASTROINTESTINAL Hx Gastrointestinal Disorders: Yes Hx Gastroesophageal Reflux: Yes Hx Hemorrhoids: Yes - GENITOURINARY/GYNECOLOGICAL Hx Genitourinary Disorders: Yes Hx Urinary Tract Infection: Yes Other/Comment: Rt. AVF - PSYCHIATRIC Hx Anxiety: Yes Hx Depression: Yes Hx Substance Use: No - SURGICAL HISTORY Hx Surgeries: Yes Hx Arteriovenous Shunt: Yes (right arm) - ANESTHESIA Hx Anesthesia: Yes Hx Anesthesia Reactions: No Hx Malignant Hyperthermia: No Meds Allergies/Adverse Reactions: Allergies Allergy/AdvReac Type Severity Reaction Status Date / Time No Known Allergies Allergy Verified 01/28/19 07:42 - Medications Medications: Current Medications Albuterol Sulfate (Albuterol 0.042% Inhal Luisa (1.25mg/3ml) Ud) 1.25 mg INH RTID [facility] Last Admin: 01/29/19 13:08 Dose: 1.25 mg Aspirin (Aspirin Chewable) 81 mg PO DAILY [facility] Last Admin: 01/29/19 10:47 Dose: 81 mg Atenolol (Tenormin) 50 mg PO DAILY [facility] Last Admin: 01/29/19 10:47 Dose: 50 mg Clopidogrel Bisulfate (Plavix) 75 mg PO DAILY [facility] Last Admin: 01/29/19 10:46 Dose: 75 mg Donepezil HCl (Aricept) 10 mg PO HS [facility] Last Admin: 01/28/19 21:36 Dose: 10 mg Famotidine (Pepcid) 20 mg PO DAILY [facility] Last Admin: 01/29/19 10:47 Dose: 20 mg Gabapentin (Neurontin) 300 mg PO DAILY [facility] Last Admin: 01/29/19 10:47 Dose: 300 mg Heparin Sodium (Porcine) (Heparin) 5,000 units SC Q12 [facility] Last Admin: 01/29/19 10:54 Dose: 5,000 units Hydralazine HCl (Apresoline) 25 mg PO TID [facility] Last Admin: 01/29/19 17:13 Dose: 25 mg Ceftriaxone Sodium 1 gm/ (Sodium Chloride) 100 mls @ 100 mls/hr IVPB Q24H [facility]; Protocol Last Admin: 01/29/19 00:02 Dose: 100 mls/hr Insulin Aspart (Novolog) 14 unit SC BIDAC [facility] Last Admin: 01/29/19 17:13 Dose: 14 unit Losartan Potassium (Cozaar) 50 mg PO DAILY [facility] Last Admin: 01/29/19 10:48 Dose: 50 mg Montelukast Sodium (Singulair) 10 mg PO DAILY [facility] Last Admin: 01/29/19 12:09 Dose: 10 mg Quetiapine Fumarate (Seroquel) 25 mg PO DAILY [facility] Last Admin: 01/29/19 10:47 Dose: 25 mg Rosuvastatin Calcium (Crestor) 5 mg PO HS [facility] Last Admin: 01/28/19 21:36 Dose: 5 mg Sevelamer Carbonate (Renvela) 800 mg PO TIDCC [facility] Last Admin: 01/29/19 17:13 Dose: 800 mg Physical Exam - Constitutional Appears: Well, Non-toxic, No Acute Distress - Head Exam Head Exam: ATRAUMATIC, NORMOCEPHALIC - Eye Exam Eye Exam: EOMI - ENT Exam ENT Exam: Mucous Membranes Moist - Respiratory Exam Respiratory Exam: NORMAL BREATHING PATTERN - Cardiovascular Exam Cardiovascular Exam: REGULAR RHYTHM - GI/Abdominal Exam GI & Abdominal Exam: Soft. absent: Tenderness - Extremities Exam Extremities exam: Positive for: normal capillary refill, pedal pulses present. Negative for: calf tenderness, pedal edema Additional comments: right AVF with palpable thrill, no induration, edema or erythema of the arm - Neurological Exam Neurological exam: Alert, Oriented x3 - Psychiatric Exam Psychiatric exam: Normal Affect, Normal Mood - Skin Skin Exam: Dry, Intact, Normal Color, Warm Results - Vital Signs Recent Vital Signs: Last Vital Signs Temp 98.0 F 01/29/19 17:10 Pulse 61 01/29/19 17:10 Resp 18 01/29/19 17:10 BP 109/54 L 01/29/19 17:10 Pulse Ox 95 01/29/19 17:10 - Labs Result Diagrams: 01/29/19 07:57 01/29/19 07:57 Labs: Laboratory Results - last 24 hr 01/28/19 01/29/19 01/29/19 21:11 06:10 07:57 WBC 4.9 RBC 4.50 Hgb 11.7 Hct 37.3 MCV 83.0 MCH 26.1 L MCHC 31.5 L RDW 19.4 H Plt Count 196 MPV 10.5 Neut % (Auto) 52.5 Lymph % (Auto) 27.4 [place] % (Auto) 14.5 H Eos % (Auto) 5.0 H Baso % (Auto) 0.6 Neut # (Auto) 2.6 Lymph # (Auto) 1.4 [place] # (Auto) 0.7 Eos # (Auto) 0.2 Baso # (Auto) 0.0 Sodium Potassium Chloride Carbon Dioxide POC Glucose (mg/dL) 92 190 H Troponin I NT-Pro-B Natriuret Pep 01/29/19 01/29/19 07:57 11:36 WBC RBC Hgb Hct MCV MCH MCHC RDW Plt Count MPV Neut % (Auto) Lymph % (Auto) [place] % (Auto) Eos % (Auto) Baso % (Auto) Neut # (Auto) Lymph # (Auto) [place] # (Auto) Eos # (Auto) Baso # (Auto) Sodium 137 Potassium 4.3 Chloride 105 Carbon Dioxide 23 POC Glucose (mg/dL) 383 H Troponin I 0.1530 H* NT-Pro-B Natriuret Pep > 73819 H Assessment & Plan - Assessment and Plan (Free Text) Assessment: 83 F with PMH ESRD with right AV fistula Plan: - no sign of infection, pt may use AVF for dialysis - pt has permacath access if needed - no surgical intervention at this time - discussed with Dr. Mccormick, further recs per him Lise Anderson, PGY 1 - Date & Time Date: 01/29/19 Time: 10:55
--- NOTE | 2019-01-29 19:05 | CP.PCM.CON ---
History of Present Illness - History of Present Illness History of Present Illness: RREASONS FOR CONSULT : ESRD ON HD M W F ANEMIA OF CKD .. H/H STABLE ELECTOLYTES ABN PT WAS SEEN AND EXAMINED .. ALL EMR REVIEWED PT WAS GIVEN HD YESTARDAY SHE DID NOT GET HER HD AN OUT PT PT PRESENTED TO HER HD CENTER EARLY YESTERDAY PER HER SCHEDULED AND WAS FOUND TO BE CONFUSED WITH VERY HIGH BLOOD SUGAR AND CHEST PAIN HD RN CALLED ME AND PT WAS SENT TO ER FOR EVELUATION AND TREATMENT 83-year-old female who developed chest pain at a dialysis center was transported to the [facility] emergency room for evaluation. Lab studies in the ER reveal elevated troponin levels and elevated glucose level. EKG demonstrates a left axis deviation. Chest pain subsided in the emergency room however patient was in the of further observation and a dialysis treatment. past history includes numerous admissions for uncontrolled diabetes, end-stage renal disease and transient cerebral ischemia. Consultation was requested with Dr. Diaz the patient's biztalk developer Present on Admission Past Patient History - Infectious Disease Hx of Infectious Diseases: None - Tetanus Immunizations Tetanus Immunization: Unknown, Up to Date - Past Medical History & Family History Past Medical History?: Yes - Past Social History Smoking Status: Never Smoked Chewing Tobacco Use: No Cigar Use: No Alcohol: None Drugs: Denies Home Situation {Lives}: Alone - CARDIAC Hx Cardia Arrhythmia: Yes Hx Congestive Heart Failure: Yes Hx Hypercholesterolemia: Yes Hx Hypertension: Yes - PULMONARY Hx Asthma: Yes Hx Bronchitis: Yes Hx Chronic Obstructive Pulmonary Disease (COPD): Yes Hx Emphysema: Yes - NEUROLOGICAL Hx Dementia: Yes Hx Migraine: Yes Hx Transient Ischemic Attacks (TIA): Yes - HEENT Hx HEENT Problems: Yes Hx Blind: Yes (Left eye.) - RENAL Hx Chronic Kidney Disease: Yes - ENDOCRINE/METABOLIC Hx Endocrine Disorders: Yes Hx Diabetes Mellitus Type 2: Yes - INTEGUMENTARY Hx Dermatological Problems: Yes Hx Cellulitis: Yes Hx Eczema: Yes - MUSCULOSKELETAL/RHEUMATOLOGICAL Hx Arthritis: Yes Hx Fractures: Yes - GASTROINTESTINAL Hx Gastrointestinal Disorders: Yes Hx Gastroesophageal Reflux: Yes Hx Hemorrhoids: Yes - GENITOURINARY/GYNECOLOGICAL Hx Genitourinary Disorders: Yes Hx Urinary Tract Infection: Yes Other/Comment: Rt. AVF - PSYCHIATRIC Hx Anxiety: Yes Hx Depression: Yes Hx Substance Use: No - SURGICAL HISTORY Hx Surgeries: Yes Hx Arteriovenous Shunt: Yes (right arm) - ANESTHESIA Hx Anesthesia: Yes Hx Anesthesia Reactions: No Hx Malignant Hyperthermia: No Meds Allergies/Adverse Reactions: Allergies Allergy/AdvReac Type Severity Reaction Status Date / Time No Known Allergies Allergy Verified 01/28/19 07:42 - Medications Medications: Current Medications Albuterol Sulfate (Albuterol 0.042% Inhal Luisa (1.25mg/3ml) Ud) 1.25 mg INH RTID [facility] Last Admin: 01/29/19 13:08 Dose: 1.25 mg Aspirin (Aspirin Chewable) 81 mg PO DAILY [facility] Last Admin: 01/29/19 10:47 Dose: 81 mg Atenolol (Tenormin) 50 mg PO DAILY [facility] Last Admin: 01/29/19 10:47 Dose: 50 mg Clopidogrel Bisulfate (Plavix) 75 mg PO DAILY [facility] Last Admin: 01/29/19 10:46 Dose: 75 mg Donepezil HCl (Aricept) 10 mg PO HS [facility] Last Admin: 01/28/19 21:36 Dose: 10 mg Famotidine (Pepcid) 20 mg PO DAILY [facility] Last Admin: 01/29/19 10:47 Dose: 20 mg Gabapentin (Neurontin) 300 mg PO DAILY [facility] Last Admin: 01/29/19 10:47 Dose: 300 mg Heparin Sodium (Porcine) (Heparin) 5,000 units SC Q12 [facility] Last Admin: 01/29/19 10:54 Dose: 5,000 units Hydralazine HCl (Apresoline) 25 mg PO TID [facility] Last Admin: 01/29/19 17:13 Dose: 25 mg Ceftriaxone Sodium 1 gm/ (Sodium Chloride) 100 mls @ 100 mls/hr IVPB Q24H [facility]; Protocol Last Admin: 01/29/19 00:02 Dose: 100 mls/hr Insulin Aspart (Novolog) 14 unit SC BIDAC [facility] Last Admin: 01/29/19 17:13 Dose: 14 unit Losartan Potassium (Cozaar) 50 mg PO DAILY [facility] Last Admin: 01/29/19 10:48 Dose: 50 mg Montelukast Sodium (Singulair) 10 mg PO DAILY [facility] Last Admin: 01/29/19 12:09 Dose: 10 mg Quetiapine Fumarate (Seroquel) 25 mg PO DAILY [facility] Last Admin: 01/29/19 10:47 Dose: 25 mg Rosuvastatin Calcium (Crestor) 5 mg PO HS [facility] Last Admin: 01/28/19 21:36 Dose: 5 mg Sevelamer Carbonate (Renvela) 800 mg PO TIDCC [facility] Last Admin: 01/29/19 17:13 Dose: 800 mg Results - Vital Signs Recent Vital Signs: Last Vital Signs Temp 98.0 F 01/29/19 17:10 Pulse 61 01/29/19 17:10 Resp 18 01/29/19 17:10 BP 109/54 L 01/29/19 17:10 Pulse Ox 95 01/29/19 17:10 - Labs Result Diagrams: 01/29/19 07:57 01/29/19 07:57 Labs: Laboratory Results - last 24 hr 01/28/19 01/29/19 01/29/19 21:11 06:10 07:57 WBC 4.9 RBC 4.50 Hgb 11.7 Hct 37.3 MCV 83.0 MCH 26.1 L MCHC 31.5 L RDW 19.4 H Plt Count 196 MPV 10.5 Neut % (Auto) 52.5 Lymph % (Auto) 27.4 [place] % (Auto) 14.5 H Eos % (Auto) 5.0 H Baso % (Auto) 0.6 Neut # (Auto) 2.6 Lymph # (Auto) 1.4 [place] # (Auto) 0.7 Eos # (Auto) 0.2 Baso # (Auto) 0.0 Sodium Potassium Chloride Carbon Dioxide POC Glucose (mg/dL) 92 190 H Troponin I NT-Pro-B Natriuret Pep 01/29/19 01/29/19 07:57 11:36 WBC RBC Hgb Hct MCV MCH MCHC RDW Plt Count MPV Neut % (Auto) Lymph % (Auto) [place] % (Auto) Eos % (Auto) Baso % (Auto) Neut # (Auto) Lymph # (Auto) [place] # (Auto) Eos # (Auto) Baso # (Auto) Sodium 137 Potassium 4.3 Chloride 105 Carbon Dioxide 23 POC Glucose (mg/dL) 383 H Troponin I 0.1530 H* NT-Pro-B Natriuret Pep > 14163 H Assessment & Plan - Assessment and Plan (Free Text) Plan: ESRD ON HD M W [facility]ta .. RECIEVED HER HD YESTERDAY ANEMIA OF CKD .. H/H STABLE C/P WWITH ELEVATED TROPONIN MMP P : C/O CURRENT CARE C/O PRESENT MANAGEMENT C/O SAME MEDS HD ON M W F WILL KEEP CLOSED EYE ON PT - Date & Time Date: 01/29/19 Time: 15:00
--- NOTE | 2019-01-29 19:34 | CARD ---
APPROVED REPORT Date of service: 01/28/2019 EKG Measurement Heart [id number] <Conclusion> Normal sinus rhythm Possible Left atrial enlargement Left anterior fascicular block T wave abnormality, consider anterolateral ischemia Prolonged QT Abnormal ECG
--- NOTE | 2019-01-29 19:51 | CARD ---
APPROVED REPORT Date of service: 01/28/2019 EKG Measurement Heart [id number] <Conclusion> Normal sinus rhythm Left axis deviation Anteroseptal infarct, age undetermined Abnormal ECG
--- NOTE | 2019-01-29 21:38 | PN ---
DATE: 01/29/2019 SUBJECTIVE: The patient is alert today. She is oriented with complaints of right hand swelling. Vascular interior design consultant Dr. Mccormick is going to see her right arm AV fistula. She has catheter for dialysis treatment. She does not complain of chest pain today and dyspnea , but she feels weak in general. There is no vomiting, no hemoptysis, and no dizziness. PHYSICAL EXAMINATION: HEART: Regular. No gallop rhythm. LUNGS: Diminished breath sounds over the lung bases. Rhonchi decreased. ABDOMEN: Soft. EXTREMITIES: Legs; no edema. Right arm is swollen and she complains of pain and discomfort and hand swelling. LABORATORY DATA: Her white count is 4900, hemoglobin 11.7, and platelet count 196. Sodium is 137, potassium is 4.3, chloride 105, carbon dioxide of 23, BUN 64, creatinine of 5.9, and blood sugar 190. Troponin is 0.153. ProBNP is over 35,000. IMPRESSION: Respiratory insufficiency, chronic obstructive pulmonary disease, congestive heart failure, hypertensive cardiovascular disease, diabetes mellitus, status post transient ischemic attack, and arthritis. PLAN: To continue antibiotics and bronchodilators and dialysis therapy, and vascular and renal consultation and oxygen therapy and gentle management. Repeat x-ray ordered yesterday is not yet available. We will check it further and order venous Doppler of right arm. Francisco Javier Guaman MD
--- NOTE | 2019-01-29 22:49 | CP.PCM.PN ---
Subjective - Date & Time of Evaluation Date of Evaluation: 01/29/19 Time of Evaluation: 19:20 - Subjective Subjective: patient still mildly confused. She was evaluated by her research associate professor Dr. Diaz. Renal access intact and functional. No signs of infection. Consult appreciated. Patient was also evaluated by Dr. Mccormick's resident. Renal melissa lysis access intact. troponin levels still elevated and blood sugar levels not under control. EKG reveals left axis deviation. Troponin levels elevated. Dr. Mei patient's print room worker to evaluate. Objective - Vital Signs/Intake and Output Vital Signs (last 24 hours): Temp Pulse Resp BP Pulse Ox 98.0 F 61 18 109/54 L 95 01/29/19 17:10 01/29/19 17:10 01/29/19 17:10 01/29/19 17:10 01/29/19 17:10 - Medications Medications: Current Medications Albuterol Sulfate (Albuterol 0.042% Inhal Luisa (1.25mg/3ml) Ud) 1.25 mg INH RTID [facility] Last Admin: 01/29/19 19:18 Dose: 1.25 mg Aspirin (Aspirin Chewable) 81 mg PO DAILY [facility] Last Admin: 01/29/19 10:47 Dose: 81 mg Atenolol (Tenormin) 50 mg PO DAILY [facility] Last Admin: 01/29/19 10:47 Dose: 50 mg Clopidogrel Bisulfate (Plavix) 75 mg PO DAILY [facility] Last Admin: 01/29/19 10:46 Dose: 75 mg Donepezil HCl (Aricept) 10 mg PO HS [facility] Last Admin: 01/29/19 21:26 Dose: 10 mg Famotidine (Pepcid) 20 mg PO DAILY [facility] Last Admin: 01/29/19 10:47 Dose: 20 mg Gabapentin (Neurontin) 300 mg PO DAILY [facility] Last Admin: 01/29/19 10:47 Dose: 300 mg Heparin Sodium (Porcine) (Heparin) 5,000 units SC Q12 [facility] Last Admin: 01/29/19 21:26 Dose: 5,000 units Hydralazine HCl (Apresoline) 25 mg PO TID [facility] Last Admin: 01/29/19 17:13 Dose: 25 mg Ceftriaxone Sodium 1 gm/ (Sodium Chloride) 100 mls @ 100 mls/hr IVPB Q24H [facility]; Protocol Last Admin: 01/29/19 00:02 Dose: 100 mls/hr Insulin Aspart (Novolog) 14 unit SC BIDAC [facility] Last Admin: 01/29/19 17:13 Dose: 14 unit Losartan Potassium (Cozaar) 50 mg PO DAILY [facility] Last Admin: 01/29/19 10:48 Dose: 50 mg Montelukast Sodium (Singulair) 10 mg PO DAILY [facility] Last Admin: 01/29/19 12:09 Dose: 10 mg Quetiapine Fumarate (Seroquel) 25 mg PO DAILY [facility] Last Admin: 01/29/19 10:47 Dose: 25 mg Rosuvastatin Calcium (Crestor) 5 mg PO HS [facility] Last Admin: 01/29/19 21:25 Dose: 5 mg Sevelamer Carbonate (Renvela) 800 mg PO TIDCC [facility] Last Admin: 01/29/19 17:13 Dose: 800 mg - Labs Labs: 01/29/19 07:57 01/29/19 07:57 - Constitutional Appears: Chronically Ill - Head Exam Head Exam: NORMOCEPHALIC - Eye Exam Eye Exam: Normal appearance Pupil Exam: NORMAL ACCOMODATION - ENT Exam ENT Exam: Normal Exam - Neck Exam Neck Exam: Normal Inspection - Respiratory Exam Respiratory Exam: Decreased Breath Sounds - Cardiovascular Exam Cardiovascular Exam: REGULAR RHYTHM - GI/Abdominal Exam GI & Abdominal Exam: Normal Bowel Sounds - Rectal Exam Rectal Exam: Deferred - Extremities Exam Extremities Exam: Normal Inspection - Back Exam Back Exam: NORMAL INSPECTION - Neurological Exam Neurological Exam: Alert - Psychiatric Exam Psychiatric exam: Depressed - Skin Skin Exam: Dry Assessment and Plan (1) Chest pain Status: Acute (2) Acute on chronic heart failure Status: Acute (3) Altered mental status Status: Acute (4) Arthralgia Status: Acute (5) Diabetes mellitus Status: Acute (6) Elevated troponin Status: Acute (7) Pleural effusion Status: Acute (8) ESRD (end stage renal disease) on dialysis Status: Chronic
[2019-01-30] MEDS: Albuterol 0.042% Inhal Sol (1.25 mg/3 mL) UD INH SCH ×2 (08:14→19:17)
[2019-01-30] MEDS: (Novolog) Insulin Aspart, Recombinant 100 u/ml 10 ml vial SC SCH ×2 (08:30→17:05)
[2019-01-30 08:52] LABS: TROPONIN I 0.094 ng/mL (0.00-0.120)
--- NOTE | 2019-01-30 11:09 | VASCLAB ---
Date of service: 01/29/2019 PROCEDURE: Right Upper Extremity Venous Duplex Exam HISTORY: dvt PRIORS: None. TECHNIQUE: Right upper extremity, internal jugular, subclavian, axillary, brachial, ulnar, radial, basilic and upper cephalic veins were evaluated. Flow was assessed with color Doppler, compressibility, assessment of phasic flow and augmentation response. Report prepared by ARIANA Patterson FINDINGS: RIGHT: 1. Internal Jugular: 1.1. Compressibility - Fully compressible: Thrombus - None : Flow - Phasic: Augmentation -Normal: Reflux - None. 2. Subclavian: 2.1. Compressibility - Fully compressible: Thrombus - None : Flow - Phasic: Augmentation -Normal: Reflux - None. 3. Axillary: 3.1. Compressibility - Fully compressible: Thrombus - None : Flow - Phasic: Augmentation -Normal: Reflux - None. 4. Brachial: 4.1. Compressibility - Fully compressible: Thrombus - None: Flow - Phasic: Augmentation -Normal: Reflux - None. 5. Ulnar: 5.1. Compressibility - Fully compressible: Thrombus - None: Flow - Phasic: Augmentation -Normal: Reflux - None. 6. Radial: 6.1. Compressibility - Fully compressible: Thrombus - None: Flow - Phasic: Augmentation - Normal: Reflux - None. 7. Cephalic: 7.1. Compressibility - Fully compressible: Thrombus - None: Flow - Phasic: Augmentation -Normal: Reflux - None. 8. Basilic: 8.1. Compressibility - Fully compressible: Thrombus - None: Flow - Phasic: Augmentation -Normal: Reflux - None. OTHER FINDINGS: Incidental Finding: Clotted fistula in the right forearm. IMPRESSION: Right: No evidence of vein thrombosis of the right upper extremity with excellent venous flow. Normal valve function noted of the right side.
--- NOTE | 2019-01-30 22:17 | CP.PCM.PN ---
Subjective - Date & Time of Evaluation Date of Evaluation: 01/30/19 Time of Evaluation: 19:00 - Subjective Subjective: patient still mildly confused. She denies any chest pain or discomfort. Today's BUN was 55 and a troponin level has returned to normal. Patient continues her dialysis schedule. Blood sugar is under better control. Objective - Vital Signs/Intake and Output Vital Signs (last 24 hours): Temp Pulse Resp BP Pulse Ox 99.4 F 81 2 L 119/58 L 95 01/30/19 15:00 01/30/19 15:00 01/30/19 15:00 01/30/19 15:00 01/30/19 15:00 Intake and Output: 01/30/19 01/31/19 18:59 06:59 Intake Total 600 Balance 600 - Medications Medications: Current Medications Albuterol Sulfate (Albuterol 0.042% Inhal Luisa (1.25mg/3ml) Ud) 1.25 mg INH RTID [facility] Last Admin: 01/30/19 19:17 Dose: 1.25 mg Aspirin (Aspirin Chewable) 81 mg PO DAILY [facility] Last Admin: 01/30/19 13:11 Dose: 81 mg Atenolol (Tenormin) 50 mg PO DAILY [facility] Last Admin: 01/30/19 13:11 Dose: 50 mg Clopidogrel Bisulfate (Plavix) 75 mg PO DAILY [facility] Last Admin: 01/30/19 13:10 Dose: 75 mg Donepezil HCl (Aricept) 10 mg PO HS [facility] Last Admin: 01/30/19 20:59 Dose: 10 mg Famotidine (Pepcid) 20 mg PO DAILY [facility] Last Admin: 01/30/19 13:10 Dose: 20 mg Gabapentin (Neurontin) 300 mg PO DAILY [facility] Last Admin: 01/30/19 13:10 Dose: 300 mg Heparin Sodium (Porcine) (Heparin) 5,000 units SC Q12 [facility] Last Admin: 01/30/19 21:00 Dose: 5,000 units Hydralazine HCl (Apresoline) 25 mg PO TID [facility] Last Admin: 01/30/19 17:05 Dose: 25 mg Ceftriaxone Sodium 1 gm/ (Sodium Chloride) 100 mls @ 100 mls/hr IVPB Q24H [facility]; Protocol Last Admin: 01/29/19 23:51 Dose: 100 mls/hr Insulin Aspart (Novolog) 14 unit SC BIDAC [facility] Last Admin: 01/30/19 17:05 Dose: 14 unit Losartan Potassium (Cozaar) 50 mg PO DAILY [facility] Last Admin: 01/30/19 13:09 Dose: 50 mg Montelukast Sodium (Singulair) 10 mg PO DAILY [facility] Last Admin: 01/30/19 13:10 Dose: 10 mg Quetiapine Fumarate (Seroquel) 25 mg PO DAILY [facility] Last Admin: 01/30/19 13:10 Dose: 25 mg Rosuvastatin Calcium (Crestor) 5 mg PO HS [facility] Last Admin: 01/30/19 21:00 Dose: 5 mg Sevelamer Carbonate (Renvela) 800 mg PO TIDCC [facility] Last Admin: 01/30/19 17:05 Dose: 800 mg - Labs Labs: 01/29/19 07:57 01/30/19 08:08 - Constitutional Appears: Chronically Ill - Head Exam Head Exam: NORMOCEPHALIC - Eye Exam Eye Exam: Normal appearance Pupil Exam: NORMAL ACCOMODATION - ENT Exam ENT Exam: Normal Exam - Neck Exam Neck Exam: Normal Inspection - Respiratory Exam Respiratory Exam: Decreased Breath Sounds - Cardiovascular Exam Cardiovascular Exam: REGULAR RHYTHM - GI/Abdominal Exam GI & Abdominal Exam: Normal Bowel Sounds - Rectal Exam Rectal Exam: Deferred - Extremities Exam Extremities Exam: Tenderness - Back Exam Back Exam: NORMAL INSPECTION - Neurological Exam Neurological Exam: Oriented x3 - Psychiatric Exam Psychiatric exam: Depressed - Skin Skin Exam: Dry Assessment and Plan (1) Chest pain Status: Acute (2) Acute on chronic heart failure Status: Acute (3) Altered mental status Status: Acute (4) Arthralgia Status: Acute (5) Diabetes mellitus Status: Acute (6) Elevated troponin Status: Acute (7) Pleural effusion Status: Acute (8) ESRD (end stage renal disease) on dialysis Status: Chronic
--- NOTE | 2019-01-30 23:17 | CP.PCM.CON ---
History of Present Illness - History of Present Illness History of Present Illness: 83 yo female was brought by ambulance to the ED at [facility] complaining of SOB and chest pain. Patient is known to have an IDDM, hypertension, senile dementia, ESRD on HD. On admission, her serum TNI were slightly elevated. ECG revealed new T wves inversion in the precordial leads. At the time of this examination, the patient has no complaint of SOB, chest pain. Telemetry showed RSR. Review of Systems - Cardiovascular Cardiovascular: Chest Pain, Dyspnea - Respiratory Respiratory: Dyspnea Past Patient History - Infectious Disease Hx of Infectious Diseases: None - Tetanus Immunizations Tetanus Immunization: Unknown, Up to Date - Past Medical History & Family History Past Medical History?: Yes - Past Social History Smoking Status: Never Smoked Chewing Tobacco Use: No Cigar Use: No Alcohol: None Drugs: Denies Home Situation {Lives}: Alone - CARDIAC Hx Cardia Arrhythmia: Yes Hx Congestive Heart Failure: Yes Hx Hypercholesterolemia: Yes Hx Hypertension: Yes - PULMONARY Hx Asthma: Yes Hx Bronchitis: Yes Hx Chronic Obstructive Pulmonary Disease (COPD): Yes Hx Emphysema: Yes - NEUROLOGICAL Hx Dementia: Yes Hx Migraine: Yes Hx Transient Ischemic Attacks (TIA): Yes - HEENT Hx HEENT Problems: Yes Hx Blind: Yes (Left eye.) - RENAL Hx Chronic Kidney Disease: Yes - ENDOCRINE/METABOLIC Hx Endocrine Disorders: Yes Hx Diabetes Mellitus Type 2: Yes - INTEGUMENTARY Hx Dermatological Problems: Yes Hx Cellulitis: Yes Hx Eczema: Yes - MUSCULOSKELETAL/RHEUMATOLOGICAL Hx Arthritis: Yes Hx Fractures: Yes - GASTROINTESTINAL Hx Gastrointestinal Disorders: Yes Hx Gastroesophageal Reflux: Yes Hx Hemorrhoids: Yes - GENITOURINARY/GYNECOLOGICAL Hx Genitourinary Disorders: Yes Hx Urinary Tract Infection: Yes Other/Comment: Rt. AVF - PSYCHIATRIC Hx Anxiety: Yes Hx Depression: Yes Hx Substance Use: No - SURGICAL HISTORY Hx Surgeries: Yes Hx Arteriovenous Shunt: Yes (right arm) - ANESTHESIA Hx Anesthesia: Yes Hx Anesthesia Reactions: No Hx Malignant Hyperthermia: No Meds Allergies/Adverse Reactions: Allergies Allergy/AdvReac Type Severity Reaction Status Date / Time No Known Allergies Allergy Verified 01/28/19 07:42 - Medications Medications: Current Medications Albuterol Sulfate (Albuterol 0.042% Inhal Luisa (1.25mg/3ml) Ud) 1.25 mg INH RTID [facility] Last Admin: 01/30/19 19:17 Dose: 1.25 mg Aspirin (Aspirin Chewable) 81 mg PO DAILY [facility] Last Admin: 01/30/19 13:11 Dose: 81 mg Atenolol (Tenormin) 50 mg PO DAILY [facility] Last Admin: 01/30/19 13:11 Dose: 50 mg Clopidogrel Bisulfate (Plavix) 75 mg PO DAILY [facility] Last Admin: 01/30/19 13:10 Dose: 75 mg Donepezil HCl (Aricept) 10 mg PO HS [facility] Last Admin: 01/30/19 20:59 Dose: 10 mg Famotidine (Pepcid) 20 mg PO DAILY [facility] Last Admin: 01/30/19 13:10 Dose: 20 mg Gabapentin (Neurontin) 300 mg PO DAILY [facility] Last Admin: 01/30/19 13:10 Dose: 300 mg Heparin Sodium (Porcine) (Heparin) 5,000 units SC Q12 [facility] Last Admin: 01/30/19 21:00 Dose: 5,000 units Hydralazine HCl (Apresoline) 25 mg PO TID [facility] Last Admin: 01/30/19 17:05 Dose: 25 mg Ceftriaxone Sodium 1 gm/ (Sodium Chloride) 100 mls @ 100 mls/hr IVPB Q24H [facility]; Protocol Last Admin: 01/29/19 23:51 Dose: 100 mls/hr Insulin Aspart (Novolog) 14 unit SC BIDAC [facility] Last Admin: 01/30/19 17:05 Dose: 14 unit Losartan Potassium (Cozaar) 50 mg PO DAILY [facility] Last Admin: 01/30/19 13:09 Dose: 50 mg Montelukast Sodium (Singulair) 10 mg PO DAILY [facility] Last Admin: 01/30/19 13:10 Dose: 10 mg Quetiapine Fumarate (Seroquel) 25 mg PO DAILY [facility] Last Admin: 01/30/19 13:10 Dose: 25 mg Rosuvastatin Calcium (Crestor) 5 mg PO HS [facility] Last Admin: 01/30/19 21:00 Dose: 5 mg Sevelamer Carbonate (Renvela) 800 mg PO TIDCC [facility] Last Admin: 01/30/19 17:05 Dose: 800 mg Physical Exam - Constitutional Appears: Well, No Acute Distress, Chronically Ill - Head Exam Head Exam: NORMAL INSPECTION - Eye Exam Eye Exam: Normal appearance Pupil Exam: NORMAL ACCOMODATION - ENT Exam ENT Exam: Normal Exam - Neck Exam Neck exam: Positive for: Normal Inspection - Respiratory Exam Respiratory Exam: Clear to Auscultation Bilateral - Cardiovascular Exam Cardiovascular Exam: REGULAR RHYTHM - GI/Abdominal Exam GI & Abdominal Exam: Normal Bowel Sounds, Soft - Rectal Exam Rectal Exam: Deferred - Exam Exam: NORMAL INSPECTION - Extremities Exam Extremities exam: Positive for: normal inspection - Back Exam Back exam: NORMAL INSPECTION - Neurological Exam Neurological exam: Alert, Oriented x3 - Psychiatric Exam Psychiatric exam: Anxious - Skin Skin Exam: Dry, Intact, Warm Results - Vital Signs Recent Vital Signs: Last Vital Signs Temp 99.4 F 01/30/19 15:00 Pulse 81 01/30/19 15:00 Resp 2 L 01/30/19 15:00 BP 119/58 L 01/30/19 15:00 Pulse Ox 95 01/30/19 15:00 - Labs Result Diagrams: 01/29/19 07:57 01/30/19 08:08 Labs: Laboratory Results - last 24 hr 01/30/19 01/30/19 08:08 11:27 Sodium 133 Potassium 5.1 Chloride 101 Carbon Dioxide 22 BUN 55 H POC Glucose (mg/dL) 175 H Troponin I 0.0940 Assessment & Plan (1) Chest pain Assessment and Plan: With new T waves inversion in leads V1, V2, V3, V4, V5, I, aVL.. Will repeat ECG, serum TNI's and echocardiogram to assess LV wall motion. Status: Acute (2) DM (diabetes mellitus) type I uncontrolled with renal manifestation Status: Acute (3) ESRD on hemodialysis Assessment and Plan: HD as per Nephrologists. Status: Acute
--- NOTE | 2019-01-30 23:38 | CP.PCM.PN ---
Subjective - Date & Time of Evaluation Date of Evaluation: 01/30/19 Time of Evaluation: 15:00 - Subjective Subjective: SEEN ON RENAL F/U SEEN ON HD VSS ALL PREVIOUS EMR REVIEWED Objective - Vital Signs/Intake and Output Vital Signs (last 24 hours): Temp Pulse Resp BP Pulse Ox 99.4 F 81 2 L 119/58 L 95 01/30/19 15:00 01/30/19 15:00 01/30/19 15:00 01/30/19 15:00 01/30/19 15:00 Intake and Output: 01/30/19 01/31/19 18:59 06:59 Intake Total 600 Balance 600 - Medications Medications: Current Medications Albuterol Sulfate (Albuterol 0.042% Inhal Luisa (1.25mg/3ml) Ud) 1.25 mg INH RTID [facility] Last Admin: 01/30/19 19:17 Dose: 1.25 mg Aspirin (Aspirin Chewable) 81 mg PO DAILY [facility] Last Admin: 01/30/19 13:11 Dose: 81 mg Atenolol (Tenormin) 50 mg PO DAILY [facility] Last Admin: 01/30/19 13:11 Dose: 50 mg Clopidogrel Bisulfate (Plavix) 75 mg PO DAILY [facility] Last Admin: 01/30/19 13:10 Dose: 75 mg Donepezil HCl (Aricept) 10 mg PO HS [facility] Last Admin: 01/30/19 20:59 Dose: 10 mg Famotidine (Pepcid) 20 mg PO DAILY [facility] Last Admin: 01/30/19 13:10 Dose: 20 mg Gabapentin (Neurontin) 300 mg PO DAILY [facility] Last Admin: 01/30/19 13:10 Dose: 300 mg Heparin Sodium (Porcine) (Heparin) 5,000 units SC Q12 [facility] Last Admin: 01/30/19 21:00 Dose: 5,000 units Hydralazine HCl (Apresoline) 25 mg PO TID [facility] Last Admin: 01/30/19 17:05 Dose: 25 mg Ceftriaxone Sodium 1 gm/ (Sodium Chloride) 100 mls @ 100 mls/hr IVPB Q24H [facility]; Protocol Last Admin: 01/29/19 23:51 Dose: 100 mls/hr Insulin Aspart (Novolog) 14 unit SC BIDAC [facility] Last Admin: 01/30/19 17:05 Dose: 14 unit Losartan Potassium (Cozaar) 50 mg PO DAILY [facility] Last Admin: 01/30/19 13:09 Dose: 50 mg Montelukast Sodium (Singulair) 10 mg PO DAILY [facility] Last Admin: 01/30/19 13:10 Dose: 10 mg Quetiapine Fumarate (Seroquel) 25 mg PO DAILY [facility] Last Admin: 01/30/19 13:10 Dose: 25 mg Rosuvastatin Calcium (Crestor) 5 mg PO HS [facility] Last Admin: 01/30/19 21:00 Dose: 5 mg Sevelamer Carbonate (Renvela) 800 mg PO TIDCC [facility] Last Admin: 01/30/19 17:05 Dose: 800 mg - Labs Labs: 01/29/19 07:57 01/30/19 08:08 Assessment and Plan - Assessment and Plan (Free Text) Assessment: ESRD ON HD M W F .. RECIEVED HER HD TODAY ANEMIA OF CKD .. H/H STABLE ELECTROLYTES ARE OK NOW CHF .. P EDEMA .. F OVERLOAD .. RECIEVED HER HD WITH UF 3 L CAD UNCONTROLED DM MMP P : C/O WITH HD C/O CURRENT MEDS CARDIO WORK APRECIATED CASE D/W PT AND DAUGHTER
[2019-01-31] MEDS: Albuterol 0.042% Inhal Sol (1.25 mg/3 mL) UD INH SCH ×3 (08:04→20:35)
[2019-01-31 08:12] LABS: TROPONIN I 0.076 ng/mL (0.00-0.120)
[2019-01-31] MEDS: (Novolog) Insulin Aspart, Recombinant 100 u/ml 10 ml vial SC SCH ×2 (08:37→16:34)
--- NOTE | 2019-01-31 15:19 | CP.PCM.PN ---
Subjective - Date & Time of Evaluation Date of Evaluation: 01/31/19 Time of Evaluation: 15:16 - Subjective Subjective: Patient has no complaint of chest pain, sob. ECG: RSR, NS ST-T wave change. TNI: normal. Echo: LVH with normal systolic wall motion and a grade II diastolic dysfunction 1+ MR, PI, TR and mild pulmonary hypertension. Objective - Vital Signs/Intake and Output Vital Signs (last 24 hours): Temp Pulse Resp BP Pulse Ox 99.7 F H 79 20 121/50 L 98 01/30/19 23:20 01/30/19 23:20 01/30/19 23:20 01/30/19 23:20 01/30/19 23:20 - Medications Medications: Current Medications Albuterol Sulfate (Albuterol 0.042% Inhal Luisa (1.25mg/3ml) Ud) 1.25 mg INH RTID [facility] Last Admin: 01/31/19 13:03 Dose: Not Given Aspirin (Aspirin Chewable) 81 mg PO DAILY [facility] Last Admin: 01/31/19 10:24 Dose: 81 mg Atenolol (Tenormin) 50 mg PO DAILY [facility] Last Admin: 01/31/19 10:24 Dose: 50 mg Clopidogrel Bisulfate (Plavix) 75 mg PO DAILY [facility] Last Admin: 01/31/19 10:24 Dose: 75 mg Donepezil HCl (Aricept) 10 mg PO HS [facility] Last Admin: 01/30/19 20:59 Dose: 10 mg Famotidine (Pepcid) 20 mg PO DAILY [facility] Last Admin: 01/31/19 10:24 Dose: 20 mg Gabapentin (Neurontin) 300 mg PO DAILY [facility] Last Admin: 01/31/19 10:24 Dose: 300 mg Heparin Sodium (Porcine) (Heparin) 5,000 units SC Q12 [facility] Last Admin: 01/31/19 10:24 Dose: 5,000 units Hydralazine HCl (Apresoline) 25 mg PO TID [facility] Last Admin: 01/31/19 13:21 Dose: 25 mg Ceftriaxone Sodium 1 gm/ (Sodium Chloride) 100 mls @ 100 mls/hr IVPB Q24H [facility]; Protocol Last Admin: 01/31/19 00:51 Dose: 100 mls/hr Insulin Aspart (Novolog) 14 unit SC BIDAC [facility] Last Admin: 01/31/19 08:37 Dose: 14 unit Losartan Potassium (Cozaar) 50 mg PO DAILY [facility] Last Admin: 01/31/19 10:24 Dose: 50 mg Montelukast Sodium (Singulair) 10 mg PO DAILY [facility] Last Admin: 01/31/19 10:24 Dose: 10 mg Quetiapine Fumarate (Seroquel) 25 mg PO DAILY [facility] Last Admin: 01/31/19 10:23 Dose: 25 mg Rosuvastatin Calcium (Crestor) 5 mg PO HS [facility] Last Admin: 01/30/19 21:00 Dose: 5 mg Sevelamer Carbonate (Renvela) 800 mg PO TIDCC [facility] Last Admin: 01/31/19 13:21 Dose: 800 mg - Labs Labs: 01/29/19 07:57 01/30/19 08:08 - Constitutional Appears: Non-toxic, No Acute Distress, Chronically Ill - Head Exam Head Exam: NORMAL INSPECTION - Eye Exam Eye Exam: Normal appearance - ENT Exam ENT Exam: Normal Exam - Respiratory Exam Respiratory Exam: Clear to Ausculation Bilateral, NORMAL BREATHING PATTERN - Cardiovascular Exam Cardiovascular Exam: REGULAR RHYTHM - GI/Abdominal Exam GI & Abdominal Exam: Soft, Normal Bowel Sounds - Rectal Exam Rectal Exam: Deferred - Extremities Exam Extremities Exam: Normal Inspection - Back Exam Back Exam: NORMAL INSPECTION - Neurological Exam Neurological Exam: Alert, Awake - Psychiatric Exam Psychiatric exam: Anxious - Skin Skin Exam: Dry, Intact, Normal Color, Warm Assessment and Plan (1) Chest pain Assessment & Plan: To continue Atenolol, ASA, plavix. Status: Resolved (2) DM (diabetes mellitus) type I uncontrolled with renal manifestation Status: Chronic (3) ESRD on hemodialysis Status: Chronic
--- NOTE | 2019-01-31 17:38 | CP.PCM.PN ---
Subjective - Date & Time of Evaluation Date of Evaluation: 01/31/19 Time of Evaluation: 15:00 - Subjective Subjective: feels improved cardiology note appreciated on hd m w f .. had her hd yesterday bp is ok .. has bradycardia .. d/c b lyndsay Objective - Vital Signs/Intake and Output Vital Signs (last 24 hours): Temp Pulse Resp BP Pulse Ox 98.2 F 62 20 119/65 100 01/31/19 17:03 01/31/19 17:03 01/31/19 17:03 01/31/19 17:03 01/31/19 17:03 - Medications Medications: Current Medications Albuterol Sulfate (Albuterol 0.042% Inhal Luisa (1.25mg/3ml) Ud) 1.25 mg INH RTID [facility] Last Admin: 01/31/19 13:03 Dose: Not Given Aspirin (Aspirin Chewable) 81 mg PO DAILY [facility] Last Admin: 01/31/19 10:24 Dose: 81 mg Clopidogrel Bisulfate (Plavix) 75 mg PO DAILY [facility] Last Admin: 01/31/19 10:24 Dose: 75 mg Donepezil HCl (Aricept) 10 mg PO HS [facility] Last Admin: 01/30/19 20:59 Dose: 10 mg Famotidine (Pepcid) 20 mg PO DAILY [facility] Last Admin: 01/31/19 10:24 Dose: 20 mg Gabapentin (Neurontin) 300 mg PO DAILY [facility] Last Admin: 01/31/19 10:24 Dose: 300 mg Heparin Sodium (Porcine) (Heparin) 5,000 units SC Q12 [facility] Last Admin: 01/31/19 10:24 Dose: 5,000 units Hydralazine HCl (Apresoline) 25 mg PO TID [facility] Last Admin: 01/31/19 13:21 Dose: 25 mg Ceftriaxone Sodium 1 gm/ (Sodium Chloride) 100 mls @ 100 mls/hr IVPB Q24H [facility]; Protocol Last Admin: 01/31/19 00:51 Dose: 100 mls/hr Insulin Aspart (Novolog) 14 unit SC BIDAC [facility] Last Admin: 01/31/19 08:37 Dose: 14 unit Losartan Potassium (Cozaar) 50 mg PO DAILY [facility] Last Admin: 01/31/19 10:24 Dose: 50 mg Montelukast Sodium (Singulair) 10 mg PO DAILY [facility] Last Admin: 01/31/19 10:24 Dose: 10 mg Quetiapine Fumarate (Seroquel) 25 mg PO DAILY [facility] Last Admin: 01/31/19 10:23 Dose: 25 mg Rosuvastatin Calcium (Crestor) 5 mg PO HS [facility] Last Admin: 01/30/19 21:00 Dose: 5 mg Sevelamer Carbonate (Renvela) 800 mg PO TIDCC [facility] Last Admin: 01/31/19 13:21 Dose: 800 mg Vitamin B Complex/Vit C/Folic Acid (Nephro-Marina) 1 tab PO 0800 [facility] - Labs Labs: 01/29/19 07:57 01/30/19 08:08 Assessment and Plan - Assessment and Plan (Free Text) Assessment: ESRD ON HD M W F .. TO BE C/O ANEMAI OF CKD .. H/H STABLE ELECTROLYTES OK BP IS WELL CONTROLED .. KIRK CARDIA .. TO D/C ATENOLOL MMP P : ADD RENAL CAP ADD VIT D D/C ATENOLOL C/O PRESENT CARE
[2019-01-31] MEDS ORDERED: Ergocalciferol 50,000 Intl Units Cap PO SCH (17:45)
--- NOTE | 2019-01-31 23:09 | CP.PCM.PN ---
Subjective - Date & Time of Evaluation Date of Evaluation: 01/31/19 Time of Evaluation: 16:05 - Subjective Subjective: patient denies chest pain today. She is still mildly confused. patient was evaluate by cardiology. Echocardiogram dem diastolic dysfuncti and mild pulmonary hypertension. Patient was also evaluated by nephrology. dialysi s access site is not obstructed or infected. Patient was found to be bradycardic. Atenolol was D/c. We will repeat EKG in a.m. Objective - Vital Signs/Intake and Output Vital Signs (last 24 hours): Temp Pulse Resp BP Pulse Ox 98.2 F 62 20 119/65 100 01/31/19 17:03 01/31/19 17:03 01/31/19 17:03 01/31/19 17:03 01/31/19 17:03 - Medications Medications: Current Medications Albuterol Sulfate (Albuterol 0.042% Inhal Luisa (1.25mg/3ml) Ud) 1.25 mg INH RTID [facility] Last Admin: 01/31/19 20:35 Dose: 1.25 mg Aspirin (Aspirin Chewable) 81 mg PO DAILY [facility] Last Admin: 01/31/19 10:24 Dose: 81 mg Clopidogrel Bisulfate (Plavix) 75 mg PO DAILY [facility] Last Admin: 01/31/19 10:24 Dose: 75 mg Donepezil HCl (Aricept) 10 mg PO HS [facility] Last Admin: 01/31/19 21:31 Dose: 10 mg Ergocalciferol (Drisdol 50,000 Intl Units Cap) 1 cap PO Q7D [facility] Last Admin: 01/31/19 18:41 Dose: 1 cap Famotidine (Pepcid) 20 mg PO DAILY [facility] Last Admin: 01/31/19 10:24 Dose: 20 mg Gabapentin (Neurontin) 300 mg PO DAILY [facility] Last Admin: 01/31/19 10:24 Dose: 300 mg Heparin Sodium (Porcine) (Heparin) 5,000 units SC Q12 [facility] Last Admin: 01/31/19 21:32 Dose: 5,000 units Hydralazine HCl (Apresoline) 25 mg PO TID [facility] Last Admin: 01/31/19 18:33 Dose: 25 mg Ceftriaxone Sodium 1 gm/ (Sodium Chloride) 100 mls @ 100 mls/hr IVPB Q24H [facility]; Protocol Last Admin: 01/31/19 00:51 Dose: 100 mls/hr Insulin Aspart (Novolog) 14 unit SC BIDAC [facility] Last Admin: 01/31/19 16:34 Dose: 14 unit Losartan Potassium (Cozaar) 50 mg PO DAILY [facility] Last Admin: 01/31/19 10:24 Dose: 50 mg Montelukast Sodium (Singulair) 10 mg PO DAILY [facility] Last Admin: 01/31/19 10:24 Dose: 10 mg Quetiapine Fumarate (Seroquel) 25 mg PO DAILY [facility] Last Admin: 01/31/19 10:23 Dose: 25 mg Rosuvastatin Calcium (Crestor) 5 mg PO HS [facility] Last Admin: 01/31/19 21:31 Dose: 5 mg Sevelamer Carbonate (Renvela) 800 mg PO TIDCC [facility] Last Admin: 01/31/19 17:33 Dose: 800 mg Vitamin B Complex/Vit C/Folic Acid (Nephro-Marina) 1 tab PO 0800 [facility] - Labs Labs: 01/29/19 07:57 01/30/19 08:08 - Constitutional Appears: Chronically Ill - Head Exam Head Exam: NORMOCEPHALIC - Eye Exam Eye Exam: Normal appearance Pupil Exam: NORMAL ACCOMODATION - ENT Exam ENT Exam: Normal Exam - Neck Exam Neck Exam: Normal Inspection - Respiratory Exam Respiratory Exam: Decreased Breath Sounds - Cardiovascular Exam Cardiovascular Exam: REGULAR RHYTHM - GI/Abdominal Exam GI & Abdominal Exam: Normal Bowel Sounds - Rectal Exam Rectal Exam: Deferred - Extremities Exam Extremities Exam: Normal Inspection - Neurological Exam Neurological Exam: Oriented x3 - Skin Skin Exam: Dry Assessment and Plan (1) Chest pain Status: Resolved (2) Acute on chronic heart failure Status: Acute (3) Altered mental status Status: Acute (4) Arthralgia Status: Acute (5) Diabetes mellitus Status: Acute (6) Elevated troponin Status: Acute (7) Pleural effusion Status: Acute (8) ESRD (end stage renal disease) on dialysis Status: Chronic
[2019-02-01] MEDS: Albuterol 0.042% Inhal Sol (1.25 mg/3 mL) UD INH SCH ×3 (07:21→19:38)
[2019-02-01] MEDS: Multivitamin Vitamin B Complex (Nephro-Vite) Tab PO SCH (08:39)
[2019-02-01] MEDS: (Novolog) Insulin Aspart, Recombinant 100 u/ml 10 ml vial SC SCH ×2 (08:39→16:28)
--- NOTE | 2019-02-01 18:27 | CARD ---
APPROVED REPORT Date of service: 01/31/2019 EXAM: Two-dimensional and M-mode echocardiogram with Doppler and color Doppler. Other Information Quality : GoodRhythm : INDICATION Dyspnea Congestive Heart Failure FEVER RISK FACTORS Hypertension Hyperlipidemia Diabetes 2D DIMENSIONS IVSd1.5 (0.7-1.1cm)LVDd4.0 (3.9-5.9cm) LVOT Diameter1.6 (1.8-2.4cm)PWd1.5 (0.7-1.1cm) LA [id number] (18-58mL)LVDs3.0 (2.5-4.0cm) FS (%) 24.6 %LVEF (%)49.3 (>50%) LVEF (Chris's)65.07 % M-Mode DIMENSIONS Left Atrium (MM)5.00 (2.5-4.0cm)Aortic Root2.67 (2.2-3.7cm) Aortic Cusp Exc.1.35 (1.5-2.0cm) Mitral Valve MV E Cnvkgtpx193.9cm/sMV A Dwztborj74.1cm/sE/A ratio1.3 TDI Lateral E' Peak V4.87cm/sMedial E' Peak V3.71cm/sE/Lateral E'25.0 E/Medial E'32.9 Pulmonary Valve PV Peak Qqlasavw22.1cm/sPV Peak Grad.2mmHg Tricuspid Valve TR Peak [id number]/sTR Peak [id number] LEFT VENTRICLE The left ventricle is normal size. There is normal left ventricular wall thickness. The left ventricular function is normal. The left ventricular ejection fraction is within the normal range. There is normal LV segmental wall motion. Transmitral Doppler flow pattern is abnormal. RIGHT VENTRICLE The right ventricle is normal size. ATRIA The left atrium size is normal. The right atrium size is normal. AORTIC VALVE There is mild aortic regurgitation. MITRAL VALVE Mitral regurgitation is mild. TRICUSPID VALVE There is moderate tricuspid regurgitation. <Conclusion> Normal LV systolic function. Diated LA. Mild MR. Moderate TR. Mild AR.
--- NOTE | 2019-02-01 23:48 | CP.PCM.PN ---
Subjective - Date & Time of Evaluation Date of Evaluation: 02/01/19 Time of Evaluation: 16:35 - Subjective Subjective: patient seems very fatigued. Denies any chest pain however blood sugar level under poor control. latest EKG demonstrates left anterior fascicular block with T-wave inversion. No sign of sepsis. Dialysis access functioning well. Continue supportive measures patient has CHF and more fluid is been removed during dialysis. Pro BNT was 35,000. Dr. Mei is evaluating the patient Objective - Vital Signs/Intake and Output Vital Signs (last 24 hours): Temp Pulse Resp BP Pulse Ox 97.9 F 70 20 107/41 L 94 L 02/01/19 16:00 02/01/19 16:00 02/01/19 16:00 02/01/19 16:00 02/01/19 16:00 Intake and Output: 02/01/19 02/02/19 18:59 06:59 Intake Total 400 Output Total 0 Balance 400 - Medications Medications: Current Medications Albuterol Sulfate (Albuterol 0.042% Inhal Luisa (1.25mg/3ml) Ud) 1.25 mg INH RTID [facility] Last Admin: 02/01/19 19:38 Dose: 1.25 mg Aspirin (Aspirin Chewable) 81 mg PO DAILY [facility] Last Admin: 02/01/19 09:23 Dose: 81 mg Clopidogrel Bisulfate (Plavix) 75 mg PO DAILY [facility] Last Admin: 02/01/19 09:23 Dose: 75 mg Donepezil HCl (Aricept) 10 mg PO HS [facility] Last Admin: 02/01/19 21:53 Dose: 10 mg Ergocalciferol (Drisdol 50,000 Intl Units Cap) 1 cap PO Q7D [facility] Last Admin: 01/31/19 18:41 Dose: 1 cap Famotidine (Pepcid) 20 mg PO DAILY [facility] Last Admin: 02/01/19 09:23 Dose: 20 mg Gabapentin (Neurontin) 300 mg PO DAILY [facility] Last Admin: 02/01/19 09:23 Dose: 300 mg Hydralazine HCl (Apresoline) 25 mg PO TID [facility] Last Admin: 02/01/19 18:28 Dose: 25 mg Ceftriaxone Sodium 1 gm/ (Sodium Chloride) 100 mls @ 100 mls/hr IVPB Q24H [facility]; Protocol Last Admin: 01/31/19 00:51 Dose: 100 mls/hr Insulin Aspart (Novolog) 14 unit SC BIDAC [facility] Last Admin: 02/01/19 16:28 Dose: 14 unit Losartan Potassium (Cozaar) 50 mg PO DAILY [facility] Last Admin: 02/01/19 09:23 Dose: 50 mg Montelukast Sodium (Singulair) 10 mg PO HS [facility] Quetiapine Fumarate (Seroquel) 25 mg PO DAILY [facility] Last Admin: 02/01/19 09:23 Dose: 25 mg Rosuvastatin Calcium (Crestor) 5 mg PO HS [facility] Last Admin: 02/01/19 21:53 Dose: 5 mg Sevelamer Carbonate (Renvela) 800 mg PO TIDCC [facility] Last Admin: 02/01/19 17:28 Dose: 800 mg Vitamin B Complex/Vit C/Folic Acid (Nephro-Marina) 1 tab PO 0800 [facility] Last Admin: 02/01/19 08:39 Dose: 1 tab - Labs Labs: 01/29/19 07:57 01/30/19 08:08 - Constitutional Appears: Chronically Ill - Head Exam Head Exam: NORMOCEPHALIC - Eye Exam Eye Exam: Normal appearance Pupil Exam: NORMAL ACCOMODATION - ENT Exam ENT Exam: Normal Exam - Neck Exam Neck Exam: Normal Inspection - Respiratory Exam Respiratory Exam: Decreased Breath Sounds - Cardiovascular Exam Cardiovascular Exam: REGULAR RHYTHM - GI/Abdominal Exam GI & Abdominal Exam: Normal Bowel Sounds - Rectal Exam Rectal Exam: Deferred - Extremities Exam Extremities Exam: Tenderness - Neurological Exam Neurological Exam: Altered - Psychiatric Exam Psychiatric exam: Depressed - Skin Skin Exam: Dry Assessment and Plan (1) Chest pain Status: Resolved (2) Acute on chronic heart failure Status: Acute (3) Altered mental status Status: Acute (4) Arthralgia Status: Acute (5) Diabetes mellitus Status: Acute (6) Elevated troponin Status: Acute (7) Pleural effusion Status: Acute (8) ESRD (end stage renal disease) on dialysis Status: Chronic
[2019-02-02] MEDS: Albuterol 0.042% Inhal Sol (1.25 mg/3 mL) UD INH SCH ×3 (07:40→20:44)
[2019-02-02] MEDS: Multivitamin Vitamin B Complex (Nephro-Vite) Tab PO SCH (08:05)
[2019-02-02] MEDS: (Novolog) Insulin Aspart, Recombinant 100 u/ml 10 ml vial SC SCH ×2 (08:06→17:24)
--- NOTE | 2019-02-02 12:17 | CARD ---
APPROVED REPORT Date of service: 02/01/2019 EKG Measurement Heart [id number] <Conclusion> Normal sinus rhythm Possible Left atrial enlargement Left anterior fascicular block Left ventricular hypertrophy T wave abnormality, consider lateral ischemia Abnormal ECG
--- NOTE | 2019-02-02 22:51 | CP.PCM.PN ---
Subjective - Date & Time of Evaluation Date of Evaluation: 02/02/19 Time of Evaluation: 19:10 - Subjective Subjective: patient underwent dialysis today. She is more oriented and responsive. Patient denies any chest pain. She does describe stiffness in both shoulders. Patient denies constipation. She continues to complain of tenderness over the dialysis access site. Objective - Vital Signs/Intake and Output Vital Signs (last 24 hours): Temp Pulse Resp BP Pulse Ox 98.2 F 61 20 129/72 99 02/02/19 15:00 02/02/19 16:00 02/02/19 15:00 02/02/19 15:00 02/02/19 15:00 Intake and Output: 02/02/19 02/03/19 18:59 06:59 Intake Total 300 Balance 300 - Medications Medications: Current Medications Aspirin (Aspirin Chewable) 81 mg PO DAILY [facility] Last Admin: 02/02/19 13:30 Dose: 81 mg Clopidogrel Bisulfate (Plavix) 75 mg PO DAILY [facility] Last Admin: 02/02/19 13:30 Dose: 75 mg Donepezil HCl (Aricept) 10 mg PO HS [facility] Last Admin: 02/02/19 21:04 Dose: 10 mg Ergocalciferol (Drisdol 50,000 Intl Units Cap) 1 cap PO Q7D [facility] Last Admin: 01/31/19 18:41 Dose: 1 cap Famotidine (Pepcid) 20 mg PO DAILY [facility] Last Admin: 02/02/19 13:31 Dose: 20 mg Gabapentin (Neurontin) 300 mg PO DAILY [facility] Last Admin: 02/02/19 13:29 Dose: 300 mg Hydralazine HCl (Apresoline) 25 mg PO TID [facility] Last Admin: 02/02/19 17:23 Dose: 25 mg Ceftriaxone Sodium 1 gm/ (Sodium Chloride) 100 mls @ 100 mls/hr IVPB Q24H [facility]; Protocol Last Admin: 02/02/19 00:52 Dose: 100 mls/hr Insulin Aspart (Novolog) 14 unit SC BIDAC [facility] Last Admin: 02/02/19 17:24 Dose: 14 unit Losartan Potassium (Cozaar) 50 mg PO DAILY [facility] Last Admin: 02/02/19 13:30 Dose: 50 mg Montelukast Sodium (Singulair) 10 mg PO HS [facility] Last Admin: 02/02/19 21:04 Dose: 10 mg Quetiapine Fumarate (Seroquel) 25 mg PO DAILY [facility] Last Admin: 02/02/19 13:30 Dose: 25 mg Rosuvastatin Calcium (Crestor) 5 mg PO HS [facility] Last Admin: 02/02/19 21:05 Dose: 5 mg Sevelamer Carbonate (Renvela) 800 mg PO TIDCC [facility] Last Admin: 02/02/19 17:24 Dose: 800 mg Vitamin B Complex/Vit C/Folic Acid (Nephro-Marina) 1 tab PO 0800 [facility] Last Admin: 02/02/19 08:05 Dose: 1 tab - Labs Labs: 01/29/19 07:57 01/30/19 08:08 - Constitutional Appears: Chronically Ill - Head Exam Head Exam: NORMOCEPHALIC - Eye Exam Eye Exam: Normal appearance Pupil Exam: NORMAL ACCOMODATION - ENT Exam ENT Exam: Normal Exam - Neck Exam Neck Exam: Normal Inspection - Respiratory Exam Respiratory Exam: Decreased Breath Sounds - Cardiovascular Exam Cardiovascular Exam: REGULAR RHYTHM - GI/Abdominal Exam GI & Abdominal Exam: Normal Bowel Sounds - Rectal Exam Rectal Exam: Deferred - Extremities Exam Extremities Exam: Normal Inspection - Back Exam Back Exam: NORMAL INSPECTION - Neurological Exam Neurological Exam: Oriented x3 - Psychiatric Exam Psychiatric exam: Depressed Assessment and Plan (1) Chest pain Status: Resolved (2) Acute on chronic heart failure Status: Acute (3) Altered mental status Status: Acute (4) Arthralgia Status: Acute (5) Diabetes mellitus Status: Acute (6) Elevated troponin Status: Acute (7) Pleural effusion Status: Acute (8) ESRD (end stage renal disease) on dialysis Status: Chronic
[2019-02-03] MEDS: (Novolog) Insulin Aspart, Recombinant 100 u/ml 10 ml vial SC SCH ×5 (08:38→23:07)
[2019-02-03] MEDS: Multivitamin Vitamin B Complex (Nephro-Vite) Tab PO SCH (11:13)
[2019-02-03] MEDS ORDERED: (Lantus) Insulin Glargine, Recombinant SC ONE (12:15)
--- NOTE | 2019-02-03 12:57 | CARD ---
APPROVED REPORT Date of service: 01/31/2019 EKG Measurement Heart [id number] <Conclusion> Sinus bradycardia Left anterior fascicular block LVH with repolarization abnormality. T wave abnormality due to LVH or ischemia Abnormal ECG
[2019-02-03] MEDS ORDERED: (Novolog) Insulin Aspart, Recombinant 100 u/ml 10 ml vial SC SCH (16:30)
--- NOTE | 2019-02-03 19:43 | CARD ---
APPROVED REPORT Date of service: 01/30/2019 EKG Measurement Heart [id number] <Conclusion> Normal sinus rhythm Left anterior fascicular block Moderate voltage criteria for LVH, may be normal variant Cannot rule out Septal infarct, age undetermined T wave abnormality, consider lateral ischemia Abnormal ECG
--- NOTE | 2019-02-03 22:08 | CP.PCM.PN ---
Subjective - Date & Time of Evaluation Date of Evaluation: 02/03/19 Time of Evaluation: 12:35 - Subjective Subjective: patient is confused. She is been attempting to get out of bed and walking with confusion and disorientation. Patient placed on one-to-one observation. Lab studies requested. Unable to discharge patient to t[facility] confused mental state. Social service informs about the changes and orientation. student services dean is attempting to contact patient's family. Objective - Vital Signs/Intake and Output Vital Signs (last 24 hours): Temp Pulse Resp BP Pulse Ox 98.5 F 71 20 105/59 L 98 02/03/19 15:30 02/03/19 15:30 02/03/19 15:30 02/03/19 15:30 02/03/19 15:30 - Medications Medications: Current Medications Aspirin (Aspirin Chewable) 81 mg PO DAILY [facility] Last Admin: 02/03/19 11:04 Dose: 81 mg Clopidogrel Bisulfate (Plavix) 75 mg PO DAILY [facility] Last Admin: 02/03/19 11:05 Dose: 75 mg Donepezil HCl (Aricept) 10 mg PO HS [facility] Last Admin: 02/02/19 21:04 Dose: 10 mg Ergocalciferol (Drisdol 50,000 Intl Units Cap) 1 cap PO Q7D [facility] Last Admin: 01/31/19 18:41 Dose: 1 cap Famotidine (Pepcid) 20 mg PO DAILY [facility] Last Admin: 02/03/19 11:02 Dose: 20 mg Gabapentin (Neurontin) 100 mg PO DAILY [facility] Last Admin: 02/03/19 11:01 Dose: 100 mg Hydralazine HCl (Apresoline) 25 mg PO TID [facility] Last Admin: 02/03/19 18:54 Dose: Not Given Insulin Aspart (Novolog) 14 unit SC BIDAC [facility] Last Admin: 02/03/19 18:00 Dose: 14 unit Insulin Aspart (Novolog) 0 unit SC ACHS [facility]; Protocol Last Admin: 02/03/19 18:00 Dose: 2 units Insulin Glargine (Lantus) 10 unit SC [facility] Losartan Potassium (Cozaar) 50 mg PO DAILY [facility] Last Admin: 02/03/19 11:04 Dose: 50 mg Montelukast Sodium (Singulair) 10 mg PO HS [facility] Last Admin: 02/02/19 21:04 Dose: 10 mg Quetiapine Fumarate (Seroquel) 25 mg PO DAILY [facility] Last Admin: 02/03/19 11:06 Dose: 25 mg Rosuvastatin Calcium (Crestor) 5 mg PO HS [facility] Last Admin: 02/02/19 21:05 Dose: 5 mg Sevelamer Carbonate (Renvela) 800 mg PO TIDCC [facility] Last Admin: 02/03/19 18:00 Dose: 800 mg Vitamin B Complex/Vit C/Folic Acid (Nephro-Marina) 1 tab PO 0800 [facility] Last Admin: 02/03/19 11:13 Dose: 1 tab - Labs Labs: 01/29/19 07:57 01/30/19 08:08 - Constitutional Appears: Chronically Ill - Head Exam Head Exam: NORMOCEPHALIC - Eye Exam Pupil Exam: NORMAL ACCOMODATION - ENT Exam ENT Exam: Normal Exam - Neck Exam Neck Exam: Normal Inspection - Respiratory Exam Respiratory Exam: Decreased Breath Sounds - Cardiovascular Exam Cardiovascular Exam: REGULAR RHYTHM - GI/Abdominal Exam GI & Abdominal Exam: Normal Bowel Sounds - Rectal Exam Rectal Exam: Deferred - Extremities Exam Extremities Exam: Normal Inspection - Back Exam Back Exam: NORMAL INSPECTION - Neurological Exam Neurological Exam: Altered - Psychiatric Exam Psychiatric exam: Depressed Assessment and Plan (1) Chest pain Status: Resolved (2) Acute on chronic heart failure Status: Acute (3) Altered mental status Status: Acute (4) Arthralgia Status: Acute (5) Diabetes mellitus Status: Acute (6) Elevated troponin Status: Acute (7) Pleural effusion Status: Acute (8) ESRD (end stage renal disease) on dialysis Status: Chronic
[2019-02-03] MEDS: (Lantus) Insulin Glargine, Recombinant SC SCH (23:06)
--- NOTE | 2019-02-04 07:29 | CP.PCM.CON ---
History of Present Illness - History of Present Illness History of Present Illness: CONSULTATION DICATATED METABOLIC ENCEPHALOPATHY HEPATORENAL SYNDROME ? EPILEPSIA PARTIALIS CONTINUA CHECK AMMONIA EEG MRI BRAIN AVOID TOXIC MEDS WHICH IS NOT NECESSARY WILL FOLLOW THANKS Past Patient History - Infectious Disease Hx of Infectious Diseases: None - Tetanus Immunizations Tetanus Immunization: Unknown, Up to Date - Past Medical History & Family History Past Medical History?: Yes - Past Social History Smoking Status: Never Smoked Chewing Tobacco Use: No Cigar Use: No Alcohol: None Drugs: Denies Home Situation {Lives}: Alone - CARDIAC Hx Congestive Heart Failure: Yes Hx Hypercholesterolemia: Yes Hx Hypertension: Yes - PULMONARY Hx Chronic Obstructive Pulmonary Disease (COPD): Yes - NEUROLOGICAL Hx Dementia: Yes Hx Migraine: Yes Hx Transient Ischemic Attacks (TIA): Yes - HEENT Hx HEENT Problems: Yes Hx Blind: Yes (Left eye.) - RENAL Hx Chronic Kidney Disease: Yes - ENDOCRINE/METABOLIC Hx Diabetes Mellitus Type 2: Yes - INTEGUMENTARY Hx Dermatological Problems: Yes Hx Cellulitis: Yes Hx Eczema: Yes - MUSCULOSKELETAL/RHEUMATOLOGICAL Hx Arthritis: Yes - GASTROINTESTINAL Hx Gastrointestinal Disorders: Yes Hx Gastroesophageal Reflux: Yes Hx Hemorrhoids: Yes - GENITOURINARY/GYNECOLOGICAL Hx Genitourinary Disorders: Yes Hx Urinary Tract Infection: Yes Other/Comment: Rt. AVF - PSYCHIATRIC Hx Anxiety: Yes Hx Depression: Yes Hx Substance Use: No - SURGICAL HISTORY Hx Surgeries: Yes Hx Arteriovenous Shunt: Yes (right arm) - ANESTHESIA Hx Anesthesia: Yes Hx Anesthesia Reactions: No Hx Malignant Hyperthermia: No Meds Allergies/Adverse Reactions: Allergies Allergy/AdvReac Type Severity Reaction Status Date / Time No Known Allergies Allergy Verified 01/28/19 07:42 - Medications Medications: Current Medications Aspirin (Aspirin Chewable) 81 mg PO DAILY [facility] Last Admin: 02/03/19 11:04 Dose: 81 mg Clopidogrel Bisulfate (Plavix) 75 mg PO DAILY [facility] Last Admin: 02/03/19 11:05 Dose: 75 mg Donepezil HCl (Aricept) 10 mg PO HS [facility] Last Admin: 02/03/19 23:06 Dose: 10 mg Ergocalciferol (Drisdol 50,000 Intl Units Cap) 1 cap PO Q7D [facility] Last Admin: 01/31/19 18:41 Dose: 1 cap Famotidine (Pepcid) 20 mg PO DAILY [facility] Last Admin: 02/03/19 11:02 Dose: 20 mg Gabapentin (Neurontin) 100 mg PO DAILY [facility] Last Admin: 02/03/19 11:01 Dose: 100 mg Hydralazine HCl (Apresoline) 25 mg PO TID [facility] Last Admin: 02/03/19 18:54 Dose: Not Given Insulin Aspart (Novolog) 14 unit SC BIDAC [facility] Last Admin: 02/03/19 18:00 Dose: 14 unit Insulin Aspart (Novolog) 0 unit SC ACHS [facility]; Protocol Last Admin: 02/03/19 23:07 Dose: Not Given Insulin Glargine (Lantus) 10 unit SC [facility] Last Admin: 02/03/19 23:06 Dose: Not Given Losartan Potassium (Cozaar) 50 mg PO DAILY [facility] Last Admin: 02/03/19 11:04 Dose: 50 mg Montelukast Sodium (Singulair) 10 mg PO [facility] Last Admin: 02/03/19 23:06 Dose: 10 mg Quetiapine Fumarate (Seroquel) 25 mg PO DAILY [facility] Last Admin: 02/03/19 11:06 Dose: 25 mg Rosuvastatin Calcium (Crestor) 5 mg PO HS [facility] Last Admin: 02/03/19 23:06 Dose: 5 mg Sevelamer Carbonate (Renvela) 800 mg PO TIDCC [facility] Last Admin: 02/03/19 18:00 Dose: 800 mg Vitamin B Complex/Vit C/Folic Acid (Nephro-Marina) 1 tab PO 0800 [facility] Last Admin: 02/03/19 11:13 Dose: 1 tab Results - Vital Signs Recent Vital Signs: Last Vital Signs Temp 97.4 F L 02/04/19 04:31 Pulse 64 02/04/19 04:31 Resp 20 02/04/19 04:31 BP 136/68 02/04/19 04:31 Pulse Ox 97 02/04/19 04:31 - Labs Result Diagrams: 01/29/19 07:57 01/30/19 08:08 Labs: Laboratory Results - last 24 hr 02/03/19 02/03/19 02/03/19 06:28 11:26 16:22 POC Glucose (mg/dL) 355 H 413 H* 174 H 02/03/19 02/03/19 02/03/19 19:22 21:18 21:20 POC Glucose (mg/dL) 145 H 55 L 54 L 02/03/19 22:07 POC Glucose (mg/dL) 140 H
[2019-02-04 07:34] LABS: BASO % 0.9 % (0.0-2.0); EOS # 0.3 K/uL (0.0-0.7); EOS % 4.9 % (0.0-4.0); HEMOGLOBIN 10.8 g/dL (11.0-16.0); LYMPH # 1.4 K/uL (1.0-4.3); LYMPH % 26.9 % (20.0-40.0); MEAN CELL VOLUME 82.2 fL (81.0-99.0); MEAN CORPUSCULAR HEMOGLOBIN 26.4 pg (27.0-31.0); MEAN CORPUSCULAR HGB CONC 32.1 g/dL (33.0-37.0); MEAN PLATELET VOLUME 10.1 fL (7.2-11.7); MONO % 18.1 % (0.0-10.0); NEUT # 2.6 K/uL (1.8-7.0); NEUT % 49.2 % (50.0-75.0); RBC 4.08 Mil/uL (3.80-5.20); RED CELL DISTRIBUTION WIDTH 19.3 % (11.5-14.5); WHITE BLOOD COUNT 5.3 K/uL (4.8-10.8)
[2019-02-04 08:11] LABS: BLOOD UREA NITROGEN 93 mg/dL (7-17); CALCIUM 9.2 mg/dl (8.6-10.4); GFR NON-AFRICAN AMERICAN 5
[2019-02-04] MEDS: (Novolog) Insulin Aspart, Recombinant 100 u/ml 10 ml vial SC SCH ×5 (08:48→21:27)
[2019-02-04] MEDS: Multivitamin Vitamin B Complex (Nephro-Vite) Tab PO SCH (08:49)
[2019-02-04 09:23] LABS: PROLACTIN 17.1 ng/mL (3.0-18.9)
--- NOTE | 2019-02-04 09:35 | CON ---
DATE: 02/04/2019 LOCATION: Room number 656, bed A. ATTENDING PHYSICIAN: Valdez Mccracken MD REASON FOR CONSULTATION: Dementia. CHIEF COMPLAINT: The patient was brought into [facility] on 01/28/2019 with a history of chest pain. During the hospitalization, the patient found to have change in mental status and I was called in to evaluate her dementia. HISTORY OF PRESENT ILLNESS: Ms. Yeni Prater is an 83-year-old moderately obese right-handed female presenting with change in mental status with baseline of dementia while she is in the hospital. No history of fall. No history of trauma. No history of bowel and bladder incontinence. The patient does have a baseline dementia, been on medication for her dementia. PAST MEDICAL HISTORY: Anxiety, arthritis, asthma, bronchitis, cardiac arrhythmia, CHF, COPD, dementia, depression, noninsulin-dependent diabetes mellitus, emphysema, hypertension, dyslipidemia, end-stage renal disease, on dialysis. History of a TIA as well. PERSONAL HISTORY: Denies smoking or alcohol use. ALLERGIES: NO KNOWN ALLERGIES. REVIEW OF SYSTEMS: A 12-point system being reviewed. From neuro, change in mental status. MEDICATION: Hydralazine, Aricept, aspirin, Cozaar, Crestor, Drisdol, Lantus insulin, Neurontin, Pepcid, Plavix, Seroquel. PHYSICAL EXAMINATION: VITAL SIGNS: Blood pressure 136/68, mean artery pressure of 90, respiratory rate 18, temperature 97.4 with a pulse rate 64, regular. NECK: Supple. No carotid bruits. HEART: Sounds are regular with ejection systolic murmur at left sternal border. EXTREMITIES: No edema in legs. NEUROLOGIC: The patient is awake, poorly communicable, Chinese. She could able to follow one-step command, significant right and left confusion. Speech spontaneous, one-word answer. Cranial nerve examination: Pupils reactive to light. Respond to visual threat on either side. Rolling conjugate gaze noted. No facial sensory deficit. No facial asymmetry. Tongue is moist, midline. Motor examination: She moves all four extremities spontaneously. Deep tendon reflexes absent. Plantars are upgoing on both sides. The patient does have significant sustained partial tremor superimposed with asterixis. This is seen more on left than her right side. Sensory examination: No cortical sensory losses, respond to pain symmetrically on both sides. Coordination: She could not able to do and follow the command. CONCLUSION: 1. 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 2. Possible epilepsia partialis continue, however metabolic workup should be done prior to this diagnosis is made. 3. 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 WORKUP: WBC 4.9, hemoglobin 11.7, hematocrit 37.3, platelet 196. Sodium 137, potassium 4.3, chloride 105, bicarbonate 23, glucose 190, BNP 35,000. RECOMMENDATIONS: 1. MRI of the brain to rule out any structural cause to explain her asterixis, particularly thalamic region. 2. Electroencephalogram to rule out hepatic encephalopathy. 3. Blood workup as per the order, requested ammonia level to be checked stat. 4. The patient should be kept fall precaution. 5. DVT prophylaxis. 6. Continue hemodialysis as she has been getting it. 7. The patient will be followed closely with you. Nnamdi Choudhary MD
[2019-02-04 10:11] LABS: FOLATE > 20.0 ng/mL
[2019-02-04 10:36] LABS: FREE T4 1.54 ng/dL (0.78-2.19)
--- NOTE | 2019-02-04 18:03 | MRI ---
Date of service: 02/04/2019 PROCEDURE: MRI BRAIN WITHOUT CONTRAST HISTORY: new ischemic process /degeneration COMPARISON: CT head without contrast from 12/23/2018 TECHNIQUE: Multiplanar, multisequence MR images of the brain were obtained without intravenous contrast enhancement. FINDINGS: HEMORRHAGE: None DWI: No evidence of an acute or early subacute infarction. BRAIN PARENCHYMA: There are moderate chronic microangiopathic changes. There is no mass, mass effect or abnormal extra-axial fluid collection. There is no territorial infarction. The midline sagittal structures are normal. VENTRICLES: There is moderate age-related global parenchymal volume loss and proportionate enlargement of the ventricles and cortical sulci. CRANIUM: There is normal bone marrow signal pattern. ORBITS: Grossly unremarkable. PARANASAL SINUSES/MASTOIDS: The paranasal sinuses are predominantly clear. There are small mastoid effusions VASCULAR SYSTEM: There are normal signal voids in the larger intracranial arteries. OTHER FINDINGS: None. IMPRESSION: No acute intracranial abnormality. Moderate chronic microangiopathic changes and moderate age-related global parenchymal volume loss.
[2019-02-04] MEDS: (Lantus) Insulin Glargine, Recombinant SC SCH (21:31)
--- NOTE | 2019-02-04 22:27 | PQF ---
PROVIDER RESPONSE TEXT: Acute on chronic Diastolic CHF REVIEWER QUERY TEXT: CHF Acuity and Type Physician?s Documentation Request This Form is Not a Permanent Document in the Medical Record Pt Name: TRICIA CHEATHAM MR #: [id number] Payor: MEDICARE HMO Unit/Bed: C.[id number]-C656-A Adm Date: 01/28/2019 9:48:00 AM Reviewer: Hamida Hagen Ext. Query Date: 01/29/2019 12:27:00 PM CHF Acuity and Type [id number] By submitting this query, we are merely seeking further clarification of documentation to accurately reflect all conditions that you are monitoring, evaluating, treating or that extend the hospitalizati on or utilize additional resources of care. Please utilize your independent clinical judgment when ad dressing the question(s) below. Dear Doctor Valdez Mccracken, The patient?s Clinical Indicators include: History Of Present Illness : "83 y/o female,w/PMhx of ESRD (on hemodialysis), brought to ER by ambulance from dialysis center comp laining of chest pain and shortness of breath.Patient states that she has associated cough.Patient st ates that she has dialysis on Mondays, Wednesdays, and Fridays.She notes that she went to dialysis in the morning and the staff thought she was pale.The staff called EMS and patient was brought to ER. S he states that she was not able to undergo dialysis". PMH: Anxiety, Arthritis, Asthma, Bronchitis, Cardia Arrhythmia, CHF, COPD, Dementia, Depression, Diabetes (type 2), Emphysema, Fractures, HTN, Hypercholesterolemia, Migraine, End Stage Renal Dis ease (ESRD), Chronic Kidney Disease, TIA Dx: Chest pain, CHF (congestive heart failure) Acute on Chronic 08/13/18 echo: > 70%, Left ventricle systolic function normal PBNP- [id number] Tx: Hemodialysis, Lab monitoring, I and O monitoring. Congestive Heart Failure is documented in the Medical Record. Please document the type and acuity (in cludes probable or suspected) Such as: Type: -- Systolic -- Diastolic -- Combined -- Other, please specify Also please document the underlying cause of the CHF (includes probable or suspected) PLEASE DOCUMENT ANY ADDITIONAL DIAGNOSES AND/OR SPECIFICITY IN THE PROGRESS NOTES AND/OR DISCHARGE CASAS MMARY. Clinically unable to determine/unknown Disagree with the above request Need to discuss Query created by: Hamida Hagen on 01/29/2019 12:27 PM Electronically signed by: Valdez Mccracken MD 02/04/2019 10:24 PM
--- NOTE | 2019-02-04 22:41 | CP.PCM.PN ---
Subjective - Date & Time of Evaluation Date of Evaluation: 02/04/19 Time of Evaluation: 12:45 - Subjective Subjective: patient still mildly confused and disoriented. Patient underwent dialysis treatment today. She was also evaluated by Dr. Delgadillo who suggests MRI of the brain, EEG and ammonia levels. Objective - Vital Signs/Intake and Output Vital Signs (last 24 hours): Temp Pulse Resp BP Pulse Ox 98 F 76 20 154/73 H 98 02/04/19 15:30 02/04/19 15:30 02/04/19 15:30 02/04/19 15:30 02/04/19 15:30 - Medications Medications: Current Medications Acetaminophen (Tylenol 325mg Tab) 650 mg PO Q6 PRN PRN Reason: Headache Last Admin: 02/04/19 16:24 Dose: 650 mg Aspirin (Aspirin Chewable) 81 mg PO DAILY [facility] Last Admin: 02/04/19 10:00 Dose: Not Given Clopidogrel Bisulfate (Plavix) 75 mg PO DAILY [facility] Last Admin: 02/04/19 10:00 Dose: Not Given Donepezil HCl (Aricept) 10 mg PO HS [facility] Last Admin: 02/04/19 21:31 Dose: 10 mg Ergocalciferol (Drisdol 50,000 Intl Units Cap) 1 cap PO Q7D [facility] Last Admin: 01/31/19 18:41 Dose: 1 cap Famotidine (Pepcid) 20 mg PO DAILY [facility] Last Admin: 02/04/19 10:00 Dose: Not Given Gabapentin (Neurontin) 100 mg PO DAILY [facility] Last Admin: 02/04/19 10:00 Dose: Not Given Hydralazine HCl (Apresoline) 25 mg PO TID [facility] Last Admin: 02/04/19 17:54 Dose: 25 mg Insulin Aspart (Novolog) 0 unit SC ACHS [facility]; Protocol Last Admin: 02/04/19 21:27 Dose: Not Given Insulin Aspart (Novolog) 7 unit SC BIDAC [facility] Last Admin: 02/04/19 17:54 Dose: 7 unit Insulin Glargine (Lantus) 10 unit SC HS [facility] Last Admin: 02/04/19 21:31 Dose: 10 unit Losartan Potassium (Cozaar) 50 mg PO DAILY [facility] Last Admin: 02/04/19 10:00 Dose: Not Given Montelukast Sodium (Singulair) 10 mg PO [facility] Last Admin: 02/04/19 21:31 Dose: 10 mg Quetiapine Fumarate (Seroquel) 25 mg PO DAILY [facility] Last Admin: 02/04/19 10:00 Dose: Not Given Rosuvastatin Calcium (Crestor) 5 mg PO [facility] Last Admin: 02/04/19 21:31 Dose: 5 mg Sevelamer Carbonate (Renvela) 800 mg PO TIDCC [facility] Last Admin: 02/04/19 17:54 Dose: 800 mg Vitamin B Complex/Vit C/Folic Acid (Nephro-Marina) 1 tab PO 0800 [facility] Last Admin: 02/04/19 08:49 Dose: 1 tab - Labs Labs: 02/04/19 07:17 02/04/19 07:17 - Constitutional Appears: Chronically Ill - Head Exam Head Exam: NORMOCEPHALIC - Eye Exam Eye Exam: Normal appearance Pupil Exam: NORMAL ACCOMODATION - ENT Exam ENT Exam: Normal Exam - Neck Exam Neck Exam: Normal Inspection - Respiratory Exam Respiratory Exam: NORMAL BREATHING PATTERN - Cardiovascular Exam Cardiovascular Exam: REGULAR RHYTHM - GI/Abdominal Exam GI & Abdominal Exam: Normal Bowel Sounds - Rectal Exam Rectal Exam: Deferred - Extremities Exam Extremities Exam: Tenderness - Back Exam Back Exam: NORMAL INSPECTION - Neurological Exam Neurological Exam: Altered - Psychiatric Exam Psychiatric exam: Depressed - Skin Skin Exam: Dry Assessment and Plan (1) Chest pain Status: Resolved (2) Acute on chronic heart failure Status: Acute (3) Altered mental status Status: Acute (4) Arthralgia Status: Acute (5) Diabetes mellitus Status: Acute (6) Elevated troponin Status: Acute (7) Pleural effusion Status: Acute (8) ESRD (end stage renal disease) on dialysis Status: Chronic (9) Metabolic encephalopathy Status: Acute
[2019-02-05] MEDS: (Novolog) Insulin Aspart, Recombinant 100 u/ml 10 ml vial SC SCH ×6 (08:00→22:35)
--- NOTE | 2019-02-05 08:08 | PN ---
DATE: 02/05/2019 NEUROLOGICAL PROBLEM: Toxic versus metabolic encephalopathy superimposed with her baseline dementia. PHYSICAL EXAMINATION: VITAL SIGNS: Blood pressure 156/75, mean artery pressure 102, respiratory 18, pulse rate 76 and regular, temperature 98.6. The patient is more awake, alert and oriented to person, place. She would like to go home after clearing from her primary doctor. She follows one-to-two step command, communicable well in Monegasque. The previously noted asterixis and the tremor is not present at this time. MRI of the brain being reviewed, significant perivascular ischemic changes with atrophy. RECOMMENDATIONS: Continue the present management. Continue hemodialysis as per the schedule. Electroencephalogram should be done and should be reviewed by me as well. If medically stable, the patient can be discharged and the workup can be followed as outpatient. Nnamdi Choudhary MD
[2019-02-05] MEDS: Multivitamin Vitamin B Complex (Nephro-Vite) Tab PO SCH (09:40)
--- NOTE | 2019-02-05 12:58 | CP.PCM.PN ---
Subjective - Date & Time of Evaluation Date of Evaluation: 02/05/19 Time of Evaluation: 12:50 - Subjective Subjective: patient seen today with Dr. rodriguez, asleep arousable, oriented to person, periods of confusion noted vss taken - stable BS fluctuating to up 400 and low to 50s pt had HD yesterday Objective - Vital Signs/Intake and Output Vital Signs (last 24 hours): Temp Pulse Resp BP Pulse Ox 98.8 F 72 18 162/68 H 100 02/05/19 07:30 02/05/19 07:54 02/05/19 07:30 02/05/19 07:30 02/05/19 07:30 - Medications Medications: Current Medications Acetaminophen (Tylenol 325mg Tab) 650 mg PO Q6 PRN PRN Reason: Headache Last Admin: 02/05/19 07:58 Dose: 650 mg Aspirin (Aspirin Chewable) 81 mg PO DAILY [facility] Last Admin: 02/05/19 09:41 Dose: 81 mg Clopidogrel Bisulfate (Plavix) 75 mg PO DAILY [facility] Last Admin: 02/05/19 09:40 Dose: 75 mg Donepezil HCl (Aricept) 10 mg PO HS [facility] Last Admin: 02/04/19 21:31 Dose: 10 mg Ergocalciferol (Drisdol 50,000 Intl Units Cap) 1 cap PO Q7D [facility] Last Admin: 01/31/19 18:41 Dose: 1 cap Famotidine (Pepcid) 20 mg PO DAILY [facility] Last Admin: 02/05/19 09:41 Dose: 20 mg Gabapentin (Neurontin) 100 mg PO DAILY [facility] Last Admin: 02/05/19 09:40 Dose: 100 mg Hydralazine HCl (Apresoline) 25 mg PO TID [facility] Last Admin: 02/05/19 11:00 Dose: Not Given Insulin Aspart (Novolog) 0 unit SC ACHS [facility]; Protocol Last Admin: 02/05/19 12:18 Dose: 4 units Insulin Aspart (Novolog) 7 unit SC BIDAC [facility] Last Admin: 02/05/19 08:00 Dose: 7 unit Insulin Glargine (Lantus) 10 unit SC HS [facility] Last Admin: 02/04/19 21:31 Dose: 10 unit Losartan Potassium (Cozaar) 50 mg PO DAILY [facility] Last Admin: 02/05/19 09:39 Dose: 50 mg Montelukast Sodium (Singulair) 10 mg PO HS [facility] Last Admin: 02/04/19 21:31 Dose: 10 mg Quetiapine Fumarate (Seroquel) 25 mg PO DAILY [facility] Last Admin: 02/05/19 09:41 Dose: 25 mg Rosuvastatin Calcium (Crestor) 5 mg PO HS [facility] Last Admin: 02/04/19 21:31 Dose: 5 mg Sevelamer Carbonate (Renvela) 800 mg PO TIDCC [facility] Last Admin: 02/05/19 09:40 Dose: 800 mg Vitamin B Complex/Vit C/Folic Acid (Nephro-Marina) 1 tab PO 0800 [facility] Last Admin: 02/05/19 09:40 Dose: 1 tab - Labs Labs: 02/04/19 07:17 02/04/19 07:17 Assessment and Plan - Assessment and Plan (Free Text) Assessment: A/P 83 Anxiety, Arthritis, Asthma, Bronchitis, Cardia Arrhythmia, CHF, COPD, Dementia, Depression, Diabetes (type 2), Emphysema, Fractures, HTN, on HD - MWF went to dialysis in the morning and the staff thought she was pale. The staff called EMS and patient was brought to ER for evaluation Patient had emergent HD during hospital stay patient developed confusion and placed on safety observation Dr. Choudhary consulted for Mental status changes and work up in progress Patient lives alone at home and as per SW patient family refuses [facility] placement D/w Dr. Rodriguez made aware of family decision , as per Dr. Rodriguez , due to metabolic encephalopathy and BS uncontrolled and HD , Patient unsafe for discharge home and Dr. Rodriguez requested CM, SW , assistance for safe discharge plan .
--- NOTE | 2019-02-05 17:51 | PCM.IRP ---
Chief Complaint: SEEN ON RENAL F/U. FEELS IMPROVED. PERIODS OF CONFUSION. FLUCTUATING SUGAR LEVELS. HAD HD YESTERDAY Objective - Vital Signs/Intake and Output Vital Signs (last 24 hours): Vital Signs - 24 hr 02/04/19 02/05/19 02/05/19 23:25 01:00 04:16 Temperature 98.6 F Pulse Rate 83 76 Respiratory 20 Rate Blood Pressure 185/62 H 156/75 H O2 Sat by Pulse 98 Oximetry 02/05/19 02/05/19 02/05/19 07:30 07:44 07:54 Temperature 98.8 F Pulse Rate 72 77 72 Respiratory 18 Rate Blood Pressure 162/68 H O2 Sat by Pulse 100 Oximetry 02/05/19 15:20 Temperature 98.2 F Pulse Rate 81 Respiratory 20 Rate Blood Pressure 172/69 H O2 Sat by Pulse 98 Oximetry Intake and Output (last 12 hours): Intake & Output 02/04/19 02/05/19 02/05/19 18:59 06:59 18:59 Intake Total 300 Balance 300 Intake: Oral 300 Other: # Voids Urine, Voided 2 # Bowel Movements 0 - Medications Medications: Current Medications Acetaminophen (Tylenol 325mg Tab) 650 mg PO Q6 PRN PRN Reason: Headache Last Admin: 02/05/19 07:58 Dose: 650 mg Aspirin (Aspirin Chewable) 81 mg PO DAILY [facility] Last Admin: 02/05/19 09:41 Dose: 81 mg Clopidogrel Bisulfate (Plavix) 75 mg PO DAILY [facility] Last Admin: 02/05/19 09:40 Dose: 75 mg Donepezil HCl (Aricept) 10 mg PO HS [facility] Last Admin: 02/04/19 21:31 Dose: 10 mg Ergocalciferol (Drisdol 50,000 Intl Units Cap) 1 cap PO Q7D [facility] Last Admin: 01/31/19 18:41 Dose: 1 cap Famotidine (Pepcid) 20 mg PO DAILY [facility] Last Admin: 02/05/19 09:41 Dose: 20 mg Gabapentin (Neurontin) 100 mg PO DAILY [facility] Last Admin: 02/05/19 09:40 Dose: 100 mg Hydralazine HCl (Apresoline) 25 mg PO TID [facility] Last Admin: 02/05/19 13:12 Dose: 25 mg Insulin Aspart (Novolog) 0 unit SC [facility]; Protocol Last Admin: 02/05/19 12:18 Dose: 4 units Insulin Aspart (Novolog) 7 unit SC BIDAC [facility] Last Admin: 02/05/19 08:00 Dose: 7 unit Insulin Glargine (Lantus) 10 unit SC HS [facility] Last Admin: 02/04/19 21:31 Dose: 10 unit Losartan Potassium (Cozaar) 50 mg PO DAILY [facility] Last Admin: 02/05/19 09:39 Dose: 50 mg Montelukast Sodium (Singulair) 10 mg PO HS [facility] Last Admin: 02/04/19 21:31 Dose: 10 mg Quetiapine Fumarate (Seroquel) 25 mg PO DAILY [facility] Last Admin: 02/05/19 09:41 Dose: 25 mg Rosuvastatin Calcium (Crestor) 5 mg PO HS [facility] Last Admin: 02/04/19 21:31 Dose: 5 mg Sevelamer Carbonate (Renvela) 800 mg PO TIDCC [facility] Last Admin: 02/05/19 13:12 Dose: 800 mg Vitamin B Complex/Vit C/Folic Acid (Nephro-Marina) 1 tab PO 0800 [facility] Last Admin: 02/05/19 09:40 Dose: 1 tab - Labs Labs (last 24 hours): Laboratory Results - last 24 hr 02/04/19 02/05/19 02/05/19 21:05 06:10 07:55 POC Glucose (mg/dL) 125 H 271 H Ammonia < 9 L 02/05/19 11:22 POC Glucose (mg/dL) 294 H Ammonia Assessment/Plan - Assessment and Plan (Free Text) Plan: ESRD ON HD M W F .. ANEMIA OF CKD .. H/H STABLE MMP P : C/O HD ON M W F C/O PRESENT CARE C/O CURRENT MEDS - Date & Time Date: 02/05/19 Time: 15:00
[2019-02-05] MEDS: (Lantus) Insulin Glargine, Recombinant SC SCH (22:34)
--- NOTE | 2019-02-05 22:50 | CP.PCM.PN ---
Subjective - Date & Time of Evaluation Date of Evaluation: 02/05/19 Time of Evaluation: 12:40 - Subjective Subjective: patient had dialysis yesterday. She is still having periods of confusion. Blood glucose is not under good control. Patient was evaluated in the presence of nurse practitioner Veronica. I have been informing [employer] social and human services assistant and utilization assisted sales representative about Mrs. Prater having periods of confusion and disorientation. Patient was evaluated by neurologist Dr. Choudhary. He feels patient has metabolic encephalopathy. MRI of the brain and EEG have been requested. I have spoken directly with Dr. Whitten studio coordinator about the mental status of this patient. The family refuses to send the patient to a rehabilitation Center. This patient is unable to live alone. 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 Patient has 9 grown children. They are all [place] residents. no family member lives in [place]. Her daughter Nova has been informed numerous times about the patient's periodic disorientation and confusion. Mrs. Prater has had numerous admissions to [facility] during the past year. She has been admitted on the average of every 3 weeks. There have been previous discussions about Mrs. Prater medical status with the title i director. We are in need of administrative assistance in implementing a plan to maintain the patient's safety. Objective - Vital Signs/Intake and Output Vital Signs (last 24 hours): Temp Pulse Resp BP Pulse Ox 98.2 F 81 20 172/69 H 98 02/05/19 15:20 02/05/19 15:20 02/05/19 15:20 02/05/19 15:20 02/05/19 15:20 Intake and Output: 02/05/19 02/06/19 18:59 06:59 Intake Total 300 Balance 300 - Medications Medications: Current Medications Acetaminophen (Tylenol 325mg Tab) 650 mg PO Q6 PRN PRN Reason: Headache Last Admin: 02/05/19 07:58 Dose: 650 mg Aspirin (Aspirin Chewable) 81 mg PO DAILY [facility] Last Admin: 02/05/19 09:41 Dose: 81 mg Clopidogrel Bisulfate (Plavix) 75 mg PO DAILY [facility] Last Admin: 02/05/19 09:40 Dose: 75 mg Donepezil HCl (Aricept) 10 mg PO HS [facility] Last Admin: 02/04/19 21:31 Dose: 10 mg Ergocalciferol (Drisdol 50,000 Intl Units Cap) 1 cap PO Q7D [facility] Last Admin: 01/31/19 18:41 Dose: 1 cap Famotidine (Pepcid) 20 mg PO DAILY [facility] Last Admin: 02/05/19 09:41 Dose: 20 mg Gabapentin (Neurontin) 100 mg PO DAILY [facility] Last Admin: 02/05/19 09:40 Dose: 100 mg Hydralazine HCl (Apresoline) 25 mg PO TID [facility] Last Admin: 02/05/19 18:43 Dose: 25 mg Insulin Aspart (Novolog) 0 unit SC ACHS [facility]; Protocol Last Admin: 02/05/19 17:30 Dose: 2 units Insulin Aspart (Novolog) 7 unit SC BIDAC [facility] Last Admin: 02/05/19 17:30 Dose: 7 unit Insulin Glargine (Lantus) 10 unit SC [facility] Last Admin: 02/04/19 21:31 Dose: 10 unit Losartan Potassium (Cozaar) 50 mg PO DAILY [facility] Last Admin: 02/05/19 09:39 Dose: 50 mg Montelukast Sodium (Singulair) 10 mg PO [facility] Last Admin: 02/04/19 21:31 Dose: 10 mg Quetiapine Fumarate (Seroquel) 25 mg PO DAILY [facility] Last Admin: 02/05/19 09:41 Dose: 25 mg Rosuvastatin Calcium (Crestor) 5 mg PO [facility] Last Admin: 02/04/19 21:31 Dose: 5 mg Sevelamer Carbonate (Renvela) 800 mg PO TIDCC [facility] Last Admin: 02/05/19 18:00 Dose: 800 mg Vitamin B Complex/Vit C/Folic Acid (Nephro-Marina) 1 tab PO 0800 [facility] Last Admin: 02/05/19 09:40 Dose: 1 tab - Labs Labs: 02/04/19 07:17 02/04/19 07:17 - Constitutional Appears: Chronically Ill - Head Exam Head Exam: NORMOCEPHALIC - Eye Exam Eye Exam: Normal appearance Pupil Exam: NORMAL ACCOMODATION - ENT Exam ENT Exam: Normal Exam - Neck Exam Neck Exam: Normal Inspection - Respiratory Exam Respiratory Exam: Decreased Breath Sounds - Cardiovascular Exam Cardiovascular Exam: REGULAR RHYTHM - GI/Abdominal Exam GI & Abdominal Exam: Normal Bowel Sounds - Extremities Exam Extremities Exam: Normal Inspection - Back Exam Back Exam: NORMAL INSPECTION - Neurological Exam Neurological Exam: Altered - Psychiatric Exam Psychiatric exam: Depressed - Skin Skin Exam: Dry Assessment and Plan (1) Chest pain Status: Resolved (2) Acute on chronic heart failure Status: Acute (3) Altered mental status Status: Acute (4) Arthralgia Status: Acute (5) Diabetes mellitus Status: Acute (6) Elevated troponin Status: Acute (7) Pleural effusion Status: Acute (8) ESRD (end stage renal disease) on dialysis Status: Chronic (9) Metabolic encephalopathy Status: Acute
--- NOTE | 2019-02-06 05:26 | EEG ---
DATE: 02/05/2019 This is a 16-channel electroencephalogram of an awake and confused adult. During the study, photic stimulation was performed. Hyperventilation was not performed. The resting electroencephalogram consists of 20 to 30 microvolt diffuse to 6 to 7 Hz high theta activities noted in parietal and occipital leads. Anteriorly fast activity superimposed with 2 to 3 Hz delta activity seen. This is followed with diffuse high-amplitude 2 to 3 Hz delta activity seen, which is consistent with early drowsiness. The photic stimulation did not evoke driving response noted at 2 to 20 Hz. IMPRESSION: This is an abnormal electroencephalogram because of the persistent slowing throughout the record suggestive of bilateral cerebral dysfunction. This is probably secondary to metabolic, vascular, or degenerative process. During the study, neither electroencephalographic paroxysmal activities nor focal slowing noted. Nnamdi Choudhary MD
[2019-02-06] MEDS: Multivitamin Vitamin B Complex (Nephro-Vite) Tab PO SCH (08:30)
[2019-02-06] MEDS: (Novolog) Insulin Aspart, Recombinant 100 u/ml 10 ml vial SC SCH ×6 (08:30→21:25)
--- NOTE | 2019-02-06 09:48 | PN ---
DATE: 02/06/2019 TIME EVALUATION: 06:55 a.m. NEUROLOGICAL PROBLEM: Metabolic encephalopathy, superimposed with her underlying senile dementia. PHYSICAL EXAMINATION: GENERAL: The patient is easily arousable. She knows she is in the hospital, communicable only in Occitan. She moves all four extremities. No asterixis. No partial tremor noted. VITAL SIGNS: Blood pressure 163/65, mean artery pressure of 97, respiratory rate 18, pulse rate 94, temperature 98.2. Rest of the examinations are unchanged compared with my previous examination. DIAGNOSTIC DATA: Her electroencephalogram been reviewed suggestive of bilateral cerebral dysfunction without any paroxysmal activity or focal slowing. RECOMMENDATIONS: 1. Stroke prophylaxis. She has been getting medication. 2. Continue hemodialysis. 3. If medically stable, the patient can be discharged and should have a followup visit with neurologist to adjust her medication for her memory. I do not want to increase her medication while she is not medically stable. Nnamdi Choudhary MD
--- NOTE | 2019-02-06 13:06 | CP.PCM.PN ---
Subjective - Date & Time of Evaluation Date of Evaluation: 02/06/19 Time of Evaluation: 13:00 - Subjective Subjective: SEEN ON RENAL F/U GETTING HER HD TODAY FEELS BETTER PERIODS OF CONFUSION Objective - Vital Signs/Intake and Output Vital Signs (last 24 hours): Temp Pulse Resp BP Pulse Ox 97.3 F L 68 22 127/58 L 98 02/06/19 09:00 02/06/19 09:00 02/06/19 08:55 02/06/19 12:00 02/06/19 09:00 Intake and Output: 02/06/19 02/06/19 06:59 18:59 Intake Total 360 Balance 360 - Medications Medications: Current Medications Acetaminophen (Tylenol 325mg Tab) 650 mg PO Q6 PRN PRN Reason: Headache Last Admin: 02/05/19 07:58 Dose: 650 mg Aspirin (Aspirin Chewable) 81 mg PO DAILY [facility] Last Admin: 02/06/19 10:00 Dose: Not Given Clopidogrel Bisulfate (Plavix) 75 mg PO DAILY [facility] Last Admin: 02/06/19 10:00 Dose: Not Given Donepezil HCl (Aricept) 10 mg PO HS [facility] Last Admin: 02/05/19 22:33 Dose: 10 mg Ergocalciferol (Drisdol 50,000 Intl Units Cap) 1 cap PO Q7D [facility] Last Admin: 01/31/19 18:41 Dose: 1 cap Famotidine (Pepcid) 20 mg PO DAILY [facility] Last Admin: 02/06/19 12:18 Dose: Not Given Gabapentin (Neurontin) 100 mg PO DAILY [facility] Last Admin: 02/06/19 10:00 Dose: Not Given Hydralazine HCl (Apresoline) 25 mg PO TID [facility] Last Admin: 02/06/19 10:00 Dose: Not Given Insulin Aspart (Novolog) 0 unit SC ACHS [facility]; Protocol Last Admin: 02/06/19 12:18 Dose: Not Given Insulin Aspart (Novolog) 7 unit SC BIDAC [facility] Last Admin: 02/06/19 08:32 Dose: 7 unit Insulin Glargine (Lantus) 10 unit SC HS [facility] Last Admin: 02/05/19 22:34 Dose: 10 unit Losartan Potassium (Cozaar) 50 mg PO DAILY [facility] Last Admin: 02/06/19 10:00 Dose: Not Given Montelukast Sodium (Singulair) 10 mg PO [facility] Last Admin: 02/05/19 22:33 Dose: 10 mg Quetiapine Fumarate (Seroquel) 25 mg PO DAILY [facility] Last Admin: 02/06/19 10:19 Dose: Not Given Rosuvastatin Calcium (Crestor) 5 mg PO HS [facility] Last Admin: 02/05/19 22:33 Dose: 5 mg Sevelamer Carbonate (Renvela) 800 mg PO TIDCC [facility] Last Admin: 02/06/19 12:00 Dose: Not Given Vitamin B Complex/Vit C/Folic Acid (Nephro-Marina) 1 tab PO 0800 [facility] Last Admin: 02/06/19 08:30 Dose: 1 tab - Labs Labs: 02/04/19 07:17 02/04/19 07:17 Assessment and Plan - Assessment and Plan (Free Text) Assessment: ESRD ON HD M W F ANEMIA OF CKD .. H/H STABLE ELECTROLYTES R OK MMP P : C/O CURRENT CARE C/O PRESENT MANAGEMENT NHP ??
[2019-02-06 16:33] VITALS: RESP 20; O2SAT 97
[2019-02-06] MEDS: (Lantus) Insulin Glargine, Recombinant SC SCH (21:32)
--- NOTE | 2019-02-06 22:16 | CP.PCM.PN ---
Subjective - Date & Time of Evaluation Date of Evaluation: 02/06/19 Time of Evaluation: 12:35 - Subjective Subjective: patient scheduled for dialysis today. She is still having episodes of confusion and disorientation. Blood sugar is still fluctuating. Awaiting the plan for patient to be supervised by a family member once discharged Objective - Vital Signs/Intake and Output Vital Signs (last 24 hours): Temp Pulse Resp BP Pulse Ox 98.6 F 75 20 163/71 H 97 02/06/19 15:32 02/06/19 15:32 02/06/19 15:32 02/06/19 15:32 02/06/19 15:32 - Medications Medications: Current Medications Acetaminophen (Tylenol 325mg Tab) 650 mg PO Q6 PRN PRN Reason: Headache Last Admin: 02/06/19 21:37 Dose: 650 mg Aspirin (Aspirin Chewable) 81 mg PO DAILY [facility] Last Admin: 02/06/19 10:00 Dose: Not Given Clopidogrel Bisulfate (Plavix) 75 mg PO DAILY [facility] Last Admin: 02/06/19 10:00 Dose: Not Given Donepezil HCl (Aricept) 10 mg PO HS [facility] Last Admin: 02/06/19 21:32 Dose: 10 mg Ergocalciferol (Drisdol 50,000 Intl Units Cap) 1 cap PO Q7D [facility] Last Admin: 01/31/19 18:41 Dose: 1 cap Famotidine (Pepcid) 20 mg PO DAILY [facility] Last Admin: 02/06/19 12:18 Dose: Not Given Gabapentin (Neurontin) 100 mg PO DAILY [facility] Last Admin: 02/06/19 10:00 Dose: Not Given Hydralazine HCl (Apresoline) 25 mg PO TID [facility] Last Admin: 02/06/19 17:27 Dose: 25 mg Insulin Aspart (Novolog) 0 unit SC ACHS [facility]; Protocol Last Admin: 02/06/19 21:25 Dose: Not Given Insulin Aspart (Novolog) 7 unit SC BIDAC [facility] Last Admin: 02/06/19 17:28 Dose: 7 unit Insulin Glargine (Lantus) 10 unit SC HS [facility] Last Admin: 02/06/19 21:32 Dose: 10 unit Losartan Potassium (Cozaar) 50 mg PO DAILY [facility] Last Admin: 02/06/19 10:00 Dose: Not Given Montelukast Sodium (Singulair) 10 mg PO HS [facility] Last Admin: 02/06/19 21:32 Dose: 10 mg Quetiapine Fumarate (Seroquel) 25 mg PO DAILY [facility] Last Admin: 02/06/19 10:19 Dose: Not Given Rosuvastatin Calcium (Crestor) 5 mg PO HS [facility] Last Admin: 02/06/19 21:32 Dose: 5 mg Sevelamer Carbonate (Renvela) 800 mg PO TIDCC [facility] Last Admin: 02/06/19 17:27 Dose: 800 mg Vitamin B Complex/Vit C/Folic Acid (Nephro-Marina) 1 tab PO 0800 [facility] Last Admin: 02/06/19 08:30 Dose: 1 tab - Labs Labs: 02/04/19 07:17 02/04/19 07:17 - Constitutional Appears: Chronically Ill - Head Exam Head Exam: NORMOCEPHALIC - Eye Exam Eye Exam: Normal appearance Pupil Exam: NORMAL ACCOMODATION - ENT Exam ENT Exam: Normal Oropharynx - Neck Exam Neck Exam: Normal Inspection - Respiratory Exam Respiratory Exam: Decreased Breath Sounds - Cardiovascular Exam Cardiovascular Exam: REGULAR RHYTHM - GI/Abdominal Exam GI & Abdominal Exam: Normal Bowel Sounds - Back Exam Back Exam: NORMAL INSPECTION - Neurological Exam Neurological Exam: Altered - Psychiatric Exam Psychiatric exam: Depressed - Skin Skin Exam: Dry Assessment and Plan (1) Chest pain Status: Resolved (2) Acute on chronic heart failure Status: Acute (3) Altered mental status Status: Acute (4) Arthralgia Status: Acute (5) Diabetes mellitus Status: Acute (6) Elevated troponin Status: Acute (7) Pleural effusion Status: Acute (8) ESRD (end stage renal disease) on dialysis Status: Chronic (9) Metabolic encephalopathy Status: Acute
[2019-02-07 08:16] VITALS: BP 144/65; PULSE 66; TEMP 98.3
[2019-02-07] MEDS: (Novolog) Insulin Aspart, Recombinant 100 u/ml 10 ml vial SC SCH ×3 (09:06→11:35)
[2019-02-07] MEDS: Multivitamin Vitamin B Complex (Nephro-Vite) Tab PO SCH (09:21)
--- NOTE | 2019-02-07 10:32 | CP.PCM.PN ---
Subjective - Date & Time of Evaluation Date of Evaluation: 02/07/19 Time of Evaluation: 10:24 - Subjective Subjective: LOTTIE GARCIA note for AMA Nursing paged @ 10:10 am. Nurse Antwan was on the phone with pt PMD, DR. MCCRACKEN. Nursing reported no additional instructions from Dr. Mccracken at time of discharge. Patient was made aware of risks of signing AMA (see AMA form in chart). She was reminded to go for dialysis on Saturday. Pt alert, oriented x 3 at time of exam. Daughter in room. Long discussion about importance of dialysis. Denied needing refills of any medication NAD, AAOx3 Lungs CTA b/l S1/S2, RR Julian Murch PGY3 Objective - Vital Signs/Intake and Output Vital Signs (last 24 hours): Temp Pulse Resp BP Pulse Ox 98.3 F 66 20 144/65 97 02/07/19 07:00 02/07/19 07:00 02/07/19 07:00 02/07/19 07:00 02/07/19 07:00 Intake and Output: 02/07/19 02/07/19 06:59 18:59 Intake Total 350 Balance 350 - Medications Medications: Current Medications Acetaminophen (Tylenol 325mg Tab) 650 mg PO Q6 PRN PRN Reason: Headache Last Admin: 02/06/19 21:37 Dose: 650 mg Aspirin (Aspirin Chewable) 81 mg PO DAILY [facility] Last Admin: 02/07/19 09:21 Dose: 81 mg Clopidogrel Bisulfate (Plavix) 75 mg PO DAILY [facility] Last Admin: 02/07/19 09:21 Dose: 75 mg Donepezil HCl (Aricept) 10 mg PO HS [facility] Last Admin: 02/06/19 21:32 Dose: 10 mg Ergocalciferol (Drisdol 50,000 Intl Units Cap) 1 cap PO Q7D [facility] Last Admin: 01/31/19 18:41 Dose: 1 cap Famotidine (Pepcid) 20 mg PO DAILY [facility] Last Admin: 02/07/19 09:22 Dose: 20 mg Gabapentin (Neurontin) 100 mg PO DAILY [facility] Last Admin: 02/07/19 09:21 Dose: 100 mg Hydralazine HCl (Apresoline) 25 mg PO TID [facility] Last Admin: 02/07/19 09:22 Dose: 25 mg Insulin Aspart (Novolog) 0 unit SC ACHS [facility]; Protocol Last Admin: 02/07/19 09:06 Dose: Not Given Insulin Aspart (Novolog) 7 unit SC BIDAC [facility] Last Admin: 02/07/19 09:20 Dose: 7 unit Insulin Glargine (Lantus) 10 unit SC HS [facility] Last Admin: 02/06/19 21:32 Dose: 10 unit Losartan Potassium (Cozaar) 50 mg PO DAILY [facility] Last Admin: 02/07/19 09:21 Dose: 50 mg Montelukast Sodium (Singulair) 10 mg PO [facility] Last Admin: 02/06/19 21:32 Dose: 10 mg Quetiapine Fumarate (Seroquel) 25 mg PO DAILY [facility] Last Admin: 02/07/19 09:22 Dose: 25 mg Rosuvastatin Calcium (Crestor) 5 mg PO [facility] Last Admin: 02/06/19 21:32 Dose: 5 mg Sevelamer Carbonate (Renvela) 800 mg PO TIDCC [facility] Last Admin: 02/07/19 09:22 Dose: 800 mg Vitamin B Complex/Vit C/Folic Acid (Nephro-Marina) 1 tab PO 0800 [facility] Last Admin: 02/07/19 09:21 Dose: 1 tab - Labs Labs: 02/04/19 07:17 02/04/19 07:17
--- NOTE | 2019-02-07 20:30 | CP.PCM.DIS ---
Provider - Provider Date of Admission: 01/28/19 09:48 Attending physician: Valdez Mccracken MD Primary care physician: with the assistance of nurse Antwan of [facility] [address] I had a discussion with Mrs. Yeni Prater daughter. I explained to Nova Prater was having periods of confusion and disorientation. I explained that the patient had been evaluated by neurologist Dr. Choudhary who diagnosis the patient with metabolic encephalopathy. He felt the condition was due to her age, many years of uncontrolled diabetes mellitus and the years she has been on renal dialysis. I informed Nova once discharged, mother would need continuous observation at [facility]. Nova explained that she had a homemaker who was with her mother for part of the day. I explained that was insufficient. I explained that Mrs. Prater needed 24 hour observation or a rehabilitation center. Nova she would sign a medical release AGAINST MEDICAL ADVICE AND TAKE HER MOTHER HOME. She insisted on leaving the hospital. Consults: 01/28/19 09:49 Nephrology Consult Routine Comment: Consulting Provider: Kanika Diaz Consulting Physician: Kanika Diaz Reason for Consult: ESRD on dialysis 01/28/19 10:16 Physician Consult Routine Comment: Consulting Provider: Francisco Javier Guaman Consulting Physician: Francisco Javier Guaman Reason for Consult: shortness of breath 01/28/19 11:58 Social Work Referral Routine Comment: Needs assistance at home Physician Instructions: Reason For Exam: Roshni score 15 01/28/19 22:21 Palliative Care Consult Routine Comment: Consulting Provider: Tasha Urrutia Physician Instructions: Reason For Exam: end stage renal disease 01/28/19 22:37 Physician Consult Routine Comment: Consulting Provider: Efren Mei Consulting Physician: Efren Mei Reason for Consult: Chest pain 01/29/19 10:41 Vascular Surgery Routine Comment: Consulting Provider: Damion Mccormick Jr. Physician Instructions: Reason For Exam: Righr arm AV fistula non functioning, redness, swe 02/03/19 22:09 Physician Consult Routine Comment: Consulting Provider: Nnamdi Choudhary Consulting Physician: Nnamdi Choudhary Reason for Consult: dementia Time Spent in preparation of Discharge (in minutes): 28 Diagnosis - Discharge Diagnosis (1) Chest pain Status: Resolved (2) Acute on chronic heart failure Status: Acute (3) Altered mental status Status: Acute (4) Arthralgia Status: Acute (5) Diabetes mellitus Status: Acute Priority: Medium (6) Elevated troponin Status: Acute (7) Pleural effusion Status: Acute (8) ESRD (end stage renal disease) on dialysis Status: Chronic Priority: Medium (9) Metabolic encephalopathy Status: Acute Hospital Course - Lab Results Lab Results: Micro Results 01/28/19 20:10 Blood Blood Culture - Final NO GROWTH AFTER 5 DAYS 01/28/19 20:10 Blood Gram Stain - Final TEST NOT PERFORMED 01/28/19 20:07 Blood Blood Culture - Final NO GROWTH AFTER 5 DAYS 01/28/19 20:07 Blood Gram Stain - Final TEST NOT PERFORMED Most Recent Lab Values WBC 5.3 K/uL (4.8-10.8) 02/04/19 07:17 RBC 4.08 Mil/uL (3.80-5.20) 02/04/19 07:17 Hgb 10.8 g/dL (11.0-16.0) L 02/04/19 07:17 Hct 33.5 % (34.0-47.0) L 02/04/19 07:17 MCV 82.2 fL (81.0-99.0) 02/04/19 07:17 MCH 26.4 pg (27.0-31.0) L 02/04/19 07:17 MCHC 32.1 g/dL (33.0-37.0) L 02/04/19 07:17 RDW 19.3 % (11.5-14.5) H 02/04/19 07:17 Plt Count 183 K/uL (130-400) 02/04/19 07:17 MPV 10.1 fL (7.2-11.7) 02/04/19 07:17 Neut % (Auto) 49.2 % (50.0-75.0) L 02/04/19 07:17 Lymph % (Auto) 26.9 % (20.0-40.0) 02/04/19 07:17 [place] % (Auto) 18.1 % (0.0-10.0) H 02/04/19 07:17 Eos % (Auto) 4.9 % (0.0-4.0) H 02/04/19 07:17 Baso % (Auto) 0.9 % (0.0-2.0) 02/04/19 07:17 Neut # (Auto) 2.6 K/uL (1.8-7.0) 02/04/19 07:17 Lymph # (Auto) 1.4 K/uL (1.0-4.3) 02/04/19 07:17 [place] # (Auto) 1.0 K/uL (0.0-0.8) H 02/04/19 07:17 Eos # (Auto) 0.3 K/uL (0.0-0.7) 02/04/19 07:17 Baso # (Auto) 0.0 K/uL (0.0-0.2) 02/04/19 07:17 pO2 81 mm/Hg (30-55) H 01/28/19 08:36 VBG pH 7.35 (7.32-7.43) 01/28/19 08:36 VBG pCO2 39 mmHg (40-60) L 01/28/19 08:36 VBG HCO3 21.9 mmol/L 01/28/19 08:36 VBG Total CO2 22.7 mmol/L (22-28) 01/28/19 08:36 VBG O2 Sat (Calc) 96.5 % (40-65) H 01/28/19 08:36 VBG Base Excess -3.8 mmol/L (0.0-2.0) L 01/28/19 08:36 VBG Potassium 4.6 mmol/L (3.6-5.2) 01/28/19 08:36 Sodium 136.0 mmol/l (132-148) 01/28/19 08:36 Chloride 103.0 mmol/L (98-107) 01/28/19 08:36 Glucose 454 mg/dl (65-105) H* D 01/28/19 08:36 Lactate 1.2 mmol/L (0.7-2.1) 01/28/19 08:36 Crit Value Called To Dr padgett 01/28/19 08:36 Crit Value Called By Oskar oneil crt 01/28/19 08:36 Crit Value Read Back Y 01/28/19 08:36 Blood Gas Notified Time 841 01/28/19 08:36 Sodium 136 mmol/L (132-148) 02/04/19 07:17 Potassium 5.3 mmol/L (3.6-5.2) H 02/04/19 07:17 Chloride 99 mmol/L (98-107) 02/04/19 07:17 Carbon Dioxide 21 mmol/L (22-30) L 02/04/19 07:17 Anion Gap 21 (10-20) H 02/04/19 07:17 BUN 93 mg/dL (7-17) H 02/04/19 07:17 Creatinine 8.2 mg/dL (0.7-1.2) H* D 02/04/19 07:17 Est GFR ( Amer) 6 02/04/19 07:17 Est GFR (Non-Af Amer) 5 02/04/19 07:17 POC Glucose (mg/dL) 248 mg/dL (65-110) H 02/07/19 11:15 Random Glucose 192 mg/dL (65-105) H D 02/04/19 07:17 Hemoglobin A1c 11.0 % (4.2-6.5) H D 02/04/19 08:58 Calcium 9.2 mg/dl (8.6-10.4) 02/04/19 07:17 Total Bilirubin 0.8 mg/dL (0.2-1.3) 01/28/19 07:57 AST 41 U/L (14-36) H D 01/28/19 07:57 ALT 50 U/L (9-52) 01/28/19 07:57 Alkaline Phosphatase 138 U/L (38-126) H 01/28/19 07:57 Ammonia < 9 umol/L (9-33) L 02/05/19 07:55 Troponin I 0.0760 ng/mL (0.00-0.120) 01/31/19 07:16 NT-Pro-B Natriuret Pep > 52565 pg/mL (0-900) H 01/29/19 07:57 Total Protein 6.3 g/dL (6.3-8.3) 01/28/19 07:57 Albumin 3.8 g/dL (3.5-5.0) 01/28/19 07:57 Globulin 2.6 gm/dL (2.2-3.9) 01/28/19 07:57 Albumin/Globulin Ratio 1.5 (1.0-2.1) 01/28/19 07:57 Triglycerides 189 mg/dL (0-149) H 01/31/19 07:16 Cholesterol 120 mg/dL (0-199) 01/31/19 07:16 LDL Cholesterol Direct 47 mg/dL (0-129) 01/31/19 07:16 HDL Cholesterol 56 mg/dL (30-70) 01/31/19 07:16 Vitamin B12 648 pg/mL (239-931) 02/04/19 07:17 Folate > 20.0 ng/mL 02/04/19 07:17 Free T4 1.54 ng/dL (0.78-2.19) 02/04/19 09:57 TSH 3rd Generation < 0.02 mIU/L (0.46-4.68) L 02/04/19 09:57 Prolactin 17.1 ng/mL (3.0-18.9) 02/04/19 07:17 Venous Blood Potassium 4.6 mmol/L (3.6-5.2) 01/28/19 08:36 B-Hydroxybutyrate 1.14 mM (0.02-0.27) H 01/28/19 07:57 Serum Immunofixation Detected (Not Detected) H 02/04/19 09:57 Discharge Exam - Head Exam Head Exam: NORMOCEPHALIC - Eye Exam Eye Exam: Normal appearance Pupil Exam: NORMAL ACCOMODATION - ENT Exam ENT Exam: Normal Exam - Neck Exam Neck exam: Normal Inspection - Respiratory Exam Respiratory Exam: Decreased Breath Sounds - Cardiovascular Exam Cardiovascular Exam: REGULAR RHYTHM - GI/Abdominal Exam GI & Abdominal Exam: Normal Bowel Sounds - Exam External exam: NORMAL EXTERNAL EXAM - Extremities Exam Extremities exam: normal inspection - Back Exam Back exam: NORMAL INSPECTION Discharge Plan - Follow Up Plan Condition: STABLE Disposition: AGAINST MEDICAL ADVICE
== END 2019-02-07 11:45 | disposition left against medical advice (07) | DRG 291 ==
LOC: C.ER 07:16 → C.6T 09:48
PROVIDERS: ADMIT Internal Medicine; ATTEND Internal Medicine
PROC: 5A1D70Z Performance of Urinary Filtration, Intermittent, Less than 6 Hours Per Day (ICD-10-PCS; principal; 2019-02-02)
PROC: 5A1D70Z Performance of Urinary Filtration, Intermittent, Less than 6 Hours Per Day (ICD-10-PCS; 2019-02-04)
PROC: 5A1D70Z Performance of Urinary Filtration, Intermittent, Less than 6 Hours Per Day (ICD-10-PCS; 2019-02-06)
DX: I13.2 Hypertensive heart and chronic kidney disease with heart failure and with stage 5 chronic kidney disease, or end stage renal disease (principal); N18.6 End stage renal disease; I50.33 Acute on chronic diastolic (congestive) heart failure; G93.41 Metabolic encephalopathy; K76.7 Hepatorenal syndrome; G40.109 Localization-related (focal) (partial) symptomatic epilepsy and epileptic syndromes with simple partial seizures, not intractable, without status epilepticus; T82.868A Thrombosis due to vascular prosthetic devices, implants and grafts, initial encounter; J43.9 Emphysema, unspecified; I95.1 Orthostatic hypotension; E11.65 Type 2 diabetes mellitus with hyperglycemia; F03.90 Unspecified dementia, unspecified severity, without behavioral disturbance, psychotic disturbance, mood disturbance, and anxiety; E11.22 Type 2 diabetes mellitus with diabetic chronic kidney disease; R06.89 Other abnormalities of breathing; D63.1 Anemia in chronic kidney disease; E11.42 Type 2 diabetes mellitus with diabetic polyneuropathy; I25.10 Atherosclerotic heart disease of native coronary artery without angina pectoris; I27.20 Pulmonary hypertension, unspecified; I44.4 Left anterior fascicular block; E78.5 Hyperlipidemia, unspecified; K21.9 Gastro-esophageal reflux disease without esophagitis; F41.9 Anxiety disorder, unspecified; Y83.2 Surgical operation with anastomosis, bypass or graft as the cause of abnormal reaction of the patient, or of later complication, without mention of misadventure at the time of the procedure; E78.00 Pure hypercholesterolemia, unspecified; M19.90 Unspecified osteoarthritis, unspecified site; F32.9 Major depressive disorder, single episode, unspecified; E66.9 Obesity, unspecified; H54.62 Unqualified visual loss, left eye, normal vision right eye; Z99.2 Dependence on renal dialysis; Z79.4 Long term (current) use of insulin; Z91.81 History of falling; Z87.440 Personal history of urinary (tract) infections; Z86.73 Personal history of transient ischemic attack (TIA), and cerebral infarction without residual deficits

== ENCOUNTER 2019-02-16 04:40 | Inpatient (IN) | payer OTHER ==
[2019-02-16 04:40] VITALS: BMI 21.4
[2019-02-16] MEDS ORDERED: Albuterol-Ipratrop 3 mg / 0.5 (3 ml) UD ONE (04:48)
--- NOTE | 2019-02-16 04:50 | C.PDOC ---
History Of Present Illness 83 yr old female w/ hx of CHF, COPD, Dementia, DM2, HTN, HLD, ESRD on HD MWF p/w abdominal pain. Pt notes abdominal pain began today, throbbing, LLQ. First time occurence. No constiaption or diarrhea. No dark or bloody stool. No fall or trauma. No n/v. No urinary complaints. No rash. She did not take any medicine for the pain. PT is a noted poor historian. She also notes mild shortness of breath without any chest pain. No fever, chills or night sweats. No leg swelling. No other complaints. Time Seen by Provider: 02/16/19 04:45 Past Medical History - Medical History PMH: Anxiety, Arthritis, Asthma, Bronchitis, Cardia Arrhythmia, CHF, COPD, Dementia, Depression, Diabetes (type 2), Emphysema, Fractures, HTN, Hypercholesterolemia, Migraine, End Stage Renal Disease (ESRD), Chronic Kidney Disease, TIA - [facility] Procedures (01/28/19) ASSISTANCE WITH RESPIRATORY VENTILATION, 24-96 HRS, CPAP (11/01/16) BYPASS RIGHT BRACHIAL ARTERY TO UP ARM VEIN, OPEN APPROACH (10/27/18) FLUOROSCOPY OF INFERIOR VENA CAVA, GUIDANCE (10/27/18) FLUOROSCOPY OF SUPERIOR VENA CAVA, GUIDANCE (10/27/18) INSERTION OF INFUSION DEV INTO INF VENA CAVA, PERC APPROACH (10/27/18) INSERTION OF INFUSION DEV INTO SUP VENA CAVA, PERC APPROACH (10/27/18) INSERTION OF VAD INTO CHEST SUBCU/FASCIA, PERC APPROACH (10/27/18) PERFORMANCE OF URINARY FILTRATION, MULTIPLE (12/24/16) PERFORMANCE OF URINARY FILTRATION, SINGLE (11/01/16) REMOVAL OF INFUSION DEVICE FROM LOWER VEIN, PERC APPROACH (10/27/18) ULTRASONOGRAPHY OF LEFT JUGULAR VEINS, GUIDANCE (10/27/18) Family History: States: Unknown Family Hx - Social History Hx Tobacco Use: No Hx Alcohol Use: No Hx Substance Use: No - Immunization History Hx Tetanus Toxoid Vaccination: Yes Hx Influenza Vaccination: Yes Hx Pneumococcal Vaccination: Yes Review Of Systems Constitutional: Negative for: Fever, Weakness Eyes: Negative for: Pain ENT: Negative for: Ear Pain, Nose Congestion Cardiovascular: Negative for: Chest Pain Respiratory: Positive for: Shortness of Breath. Negative for: Cough, Hemoptysis Gastrointestinal: Positive for: Abdominal Pain. Negative for: Nausea, Vomiting, Diarrhea, Constipation, Melena, Hematochezia, Hematemesis Genitourinary: Negative for: Dysuria, Frequency Musculoskeletal: Negative for: Neck Pain, Back Pain Neurological: Negative for: Weakness, Headache Physical Exam - Physical Exam Appears: No Acute Distress Skin: Normal Color, Warm, Dry Head: Atraumatic, Normacephalic Eye(s): bilateral: Normal Inspection, PERRL, EOMI Nose: Normal Oral Mucosa: Moist Tongue: Normal Appearing Lips: Normal Appearing Throat: Normal, No Erythema, No Exudate, No Drooling, No Mass Neck: Normal, Supple, Other (no meningeal signs) Lymphatic: No Adenopathy Chest: Other (Left Upper chest dialysis cathether) Cardiovascular: Other (tachycardic) Respiratory: No Accessory Muscle Use, No Rales, No Rhonchi, Wheezing (mild wheezes at bases b/l) Gastrointestinal/Abdominal: Normal Exam, Soft, Tenderness (llq), No Mass, No Distention Back: Normal Inspection, No CVA Tenderness, No Vertebral Tenderness Extremity: Normal ROM Neurological/Psych: Oriented x3, Normal Speech, Normal Cognition ED Course And Treatment - Laboratory Results Result Diagrams: 02/17/19 06:38 02/17/19 06:38 Medical Decision Making Medical Decision Makin yr old female w/ hx of CHF, COPD, Dementia, DM2, HTN, HLD, ESRD on HD MWF p/w abdominal pain and shortness of breath. Lungs with mild wheezes at the bases b/l. Pt is due for dialysis today. LLQ pain on exam. No constipation / diarrhea or dark or bloody stool. NO trauma or fall. Will likely require imaging and further evaluation inpatient for dialysis. Pending imaging, labs EK, sinus tachy, no stemi 1814 labs reviewed troponin likely 2/2 elevated Cr: pt has baseline elevated troponins Glucose elevated, HyperK without EKG changes: Albuterol 5.0 mg given and Insulin given Pending XR and CT Appreciate consult w/ DR. Mccracken (PMD): to admit to his service, will follow remaining labs and imaging Placed an order per Dr. Mccracken for consult w/ Dr. Diaz Pt in NAD Disposition - Disposition Disposition: HOSPITALIZED Disposition Time: 06:20 Condition: STABLE - Clinical Impression Clinical Impression: CHF (congestive heart failure), COPD (chronic obstructive pulmonary disease), Hyperkalemia
[2019-02-16] MEDS ORDERED: Albuterol-Ipratrop 3 mg / 0.5 (3 ml) UD INH STA (05:22)
[2019-02-16 05:24] LABS: BASO % 0.4 % (0.0-2.0); EOS % 0.2 % (0.0-4.0); HEMOGLOBIN 10.5 g/dL (11.0-16.0); LYMPH # 0.4 K/uL (1.0-4.3); LYMPH % 6.2 % (20.0-40.0); MEAN CELL VOLUME 82.5 fL (81.0-99.0); MEAN CORPUSCULAR HEMOGLOBIN 25.6 pg (27.0-31.0); MEAN PLATELET VOLUME 10.1 fL (7.2-11.7); MONO # 0.8 K/uL (0.0-0.8); MONO % 11.5 % (0.0-10.0); NEUT # 5.8 K/uL (1.8-7.0); NEUT % 81.7 % (50.0-75.0); NRBC % 0.1 % (0.0-2.0); PLATELET COUNT 191 K/uL (130-400); RBC 4.12 Mil/uL (3.80-5.20); RED CELL DISTRIBUTION WIDTH 20.4 % (11.5-14.5); WHITE BLOOD COUNT 7.1 K/uL (4.8-10.8)
[2019-02-16 05:29] LABS: INR 1.2; PARTIAL THROMBOPLASTIN TIME 36.4 SECONDS (21-34); PROTHROMBIN TIME 12.6 SECONDS (9.7-12.2)
[2019-02-16 05:31] LABS: VENOUS BLOOD GAS BASE EXCESS -2.2 mmol/L (0.0-2.0); VENOUS BLOOD GAS PCO2 41 mmHg (40-60); VENOUS BLOOD GAS PO2 31 mm/Hg (30-55); VENOUS BLOOD PH 7.36 (7.32-7.43)
[2019-02-16 05:45] LABS: ALB/GLOB RATIO 1.3 (1.0-2.1); ALBUMIN 4.1 g/dL (3.5-5.0); CALCIUM 10.2 mg/dl (8.6-10.4)
[2019-02-16] MEDS ORDERED: (Novolin R) Insulin Human Regular 100 units/ml vial IVP ONE (05:49)
[2019-02-16] MEDS ORDERED: (Novolin R) Insulin Human Regular 100 units/ml vial ONE (05:58)
[2019-02-16 06:12] LABS: TROPONIN I 0.221 ng/mL (0.00-0.120)
[2019-02-16 06:47] LABS: LYMPHOCYTE 5 % (20-40); MONOCYTE 5 % (0-10); NEUTROPHIL 90 % (50-75); PLATELET ESTIMATE NORMAL (NORMAL); TOTAL CELLS COUNTED 100
[2019-02-16] MEDS: (Novolog) Insulin Aspart, Recombinant 100 u/ml 10 ml vial SC SCH ×2 (09:17→17:22)
--- NOTE | 2019-02-16 09:59 | RAD ---
Date of service: 02/16/2019 HISTORY: sob COMPARISON: 01/29/2019 TECHNIQUE: Chest PA and lateral views FINDINGS: LUNGS: Opacity at medial right base, not clearly evident in the lateral projection. Possibly artifactual. Follow-up advised. No other abnormal opacity elsewhere. PLEURA: Small bilateral pleural effusion. No pneumothorax. CARDIOVASCULAR: No aortic atherosclerotic calcification present. Normal cardiac size. Right brachiocephalic vascular stent. Tunneled central venous dialysis catheter. OSSEOUS STRUCTURES: Right glenohumeral osteoarthritis VISUALIZED UPPER ABDOMEN: Normal. OTHER FINDINGS: None. IMPRESSION: Small bilateral pleural effusion. Questionable infiltrate medial right base. Follow-up advised.
--- NOTE | 2019-02-16 10:39 | CT ---
PROCEDURE: CT Abdomen and Pelvis without Oral or IV contrast. HISTORY: llq pain COMPARISON: CT abdomen and pelvis with IV contrast performed 12/20/18, abdominal ultrasound performed 12/21/18 TECHNIQUE: Contiguous axial images of the abdomen and pelvis. No oral or IV contrast administered. Coronal and Sagittal reformats generated and reviewed. Radiation dose: Total exam DLP = 730.72 mGy-cm. This CT exam was performed using one or more of the following dose reduction techniques: Automated exposure control, adjustment of the mA and/or kV according to patient size, and/or use of iterative reconstruction technique. FINDINGS: Examination limited by motion and streak artifact. There is limited evaluation of the solid organs without the administration of IV contrast. LOWER THORAX: Small right pleural effusion. Bibasilar atelectasis/infiltrates. No visible pneumothorax. Partially imaged cardiomegaly. Small pericardial effusion. Distal esophageal wall thickening/hiatal hernia. LIVER: Unremarkable unenhanced appearance. GALLBLADDER AND BILE DUCTS: Marked gallbladder wall thickening/pericholecystic edema. PANCREAS: Unremarkable unenhanced appearance. SPLEEN: Unremarkable unenhanced appearance. ADRENALS: Bilateral nodular (left greater than right) adrenal gland hypertrophy. KIDNEYS AND URETERS: No hydronephrosis or obstructing renal calculus. Nonobstructing bilateral renal calculi. Right lower pole renal hypodensity measures approximately 14 HU, likely cyst. Additional too small to characterize renal hypodensities, statistically likely cysts. BLADDER: The urinary bladder appears unremarkable. REPRODUCTIVE: Uterus is present. APPENDIX: Limited visualized portions of the presumed appendix appears within normal limits of caliber. No secondary signs of acute appendicitis. BOWEL: Gastric wall thickening; correlate clinically for possibility of gastritis. The stomach is nondistended. Lack of oral contrast limits evaluation for bowel pathology. The bowel loops appear within normal limits of caliber without evidence of intestinal obstruction. Inflammatory changes are noted in the left upper quadrant. Small bowel wall thickening within the left abdomen. Extensive diverticulosis with questionable wall thickening involving the left colon. PERITONEUM: No significant free fluid. No definite free air. LYMPH NODES: Nonspecific sub cm mesenteric lymph nodes. Mild mesenteric inflammatory stranding. VASCULATURE: Atherosclerotic calcifications of the aorta and branches. No aortic aneurysm. BONES: Degenerative changes. Osseous demineralization. Patchy lucencies re-identified throughout the vertebral bodies of the thoracic and lumbar spine, nonspecific. Probable Schmorl's nodes most prominent at the superior endplates of T11 and L4. OTHER FINDINGS: None. IMPRESSION: Inflammatory changes are noted in the left upper quadrant. Small bowel wall thickening within the left abdomen. Extensive diverticulosis with questionable wall thickening involving the left colon. Appearance may reflect colitis and/or enteritis. Correlate clinically. Marked gallbladder wall thickening/pericholecystic edema. Right upper quadrant ultrasound suggested if indicated. Nonobstructing bilateral renal calculi. Right lower pole renal hypodensity measures approximately 14 HU, likely cyst. Additional too small to characterize renal hypodensities, statistically likely cysts. Bilateral nodular (left greater than right) adrenal gland hypertrophy. Nonspecific sub cm mesenteric lymph nodes. Mild mesenteric inflammatory stranding. Small right pleural effusion. Bibasilar atelectasis/infiltrates. Partially imaged cardiomegaly. Small pericardial effusion. Distal esophageal wall thickening/hiatal hernia. Patchy lucencies re-identified throughout the vertebral bodies of the thoracic and lumbar spine, nonspecific. Correlation with nuclear medicine bone scan may be helpful. Additional findings as above.
[2019-02-16 11:51] LABS: FREE T4 1.74 ng/dL (0.78-2.19)
[2019-02-16] MEDS: (Novolin R) Insulin Human Regular 100 units/ml vial SC SCH ×3 (13:01→21:53)
[2019-02-16 15:09] LABS: ABG ALLEN TEST YES; ARTERIAL BLOOD GAS HCO3 22.5 mmol/L (21-28); ARTERIAL BLOOD GAS HEMOGLOBIN 9.2 g/dL (11.7-17.4); ARTERIAL BLOOD GAS O2 SAT 99.4 % (95-98); ARTERIAL BLOOD GAS PCO2 31 mm/Hg (35-45); ARTERIAL BLOOD GAS PH 7.43 (7.35-7.45); ARTERIAL BLOOD GAS PO2 124 mm/Hg (80-100); ARTERIAL BLOOD GAS TCO2 21.6 mmol/L (22-28)
[2019-02-16] MEDS: Albuterol-Ipratrop 3 mg / 0.5 (3 ml) UD INH SCH (15:48)
--- NOTE | 2019-02-16 21:36 | CP.PCM.CON ---
History of Present Illness - History of Present Illness History of Present Illness: REASONS FOR CONSULT : ESRD ON HD M W F ELECTROLYTES ABNORMALITIES .. HYPERKALEMIA K 5.7 ANEMIA OF CKD .. H/H STABLE PT IS WELL KNOWN TO ME WITH MULTIPLE MEDICAL PROBLEMS AND FREQEUNT ADDMISION 83 yr old female w/ hx of CHF, COPD, Dementia, DM2, HTN, HLD, ESRD on HD MWF p/w abdominal pain. Pt notes abdominal pain began today, throbbing, LLQ. First time occurence. No constiaption or diarrhea. No dark or bloody stool. No fall or trauma. No n/v. No urinary complaints. No rash. She did not take any medicine for the pain. PT is a noted poor historian. She also notes mild shortness of breath without any chest pain. No fever, chills or night sweats. No leg swelling. No other complaints. Time Seen by Provider: 02/16/19 04:45 Past Medical History - Medical History PMH: Anxiety, Arthritis, Asthma, Bronchitis, Cardia Arrhythmia, CHF, COPD, Dementia, Depression, Diabetes (type 2), Emphysema, Fractures, HTN, Hypercholesterolemia, Migraine, End Stage Renal Disease (ESRD), Chronic Kidney Disease, TIA Past Patient History - Infectious Disease Hx of Infectious Diseases: None - Tetanus Immunizations Tetanus Immunization: Unknown, Up to Date - Past Medical History & Family History Past Medical History?: Yes - Past Social History Smoking Status: Never Smoked - CARDIAC Hx Cardiac Disorders: Yes Hx Cardia Arrhythmia: Yes Hx Congestive Heart Failure: Yes Hx Hypercholesterolemia: Yes Hx Hypertension: Yes - PULMONARY Hx Asthma: Yes Hx Bronchitis: Yes Hx Chronic Obstructive Pulmonary Disease (COPD): Yes Hx Emphysema: Yes - NEUROLOGICAL Hx Neurological Disorder: Yes Hx Dementia: Yes Hx Migraine: Yes Hx Transient Ischemic Attacks (TIA): Yes - HEENT Hx HEENT Problems: Yes Hx Blind: Yes (Left eye.) - RENAL Hx Chronic Kidney Disease: Yes - ENDOCRINE/METABOLIC Hx Diabetes Mellitus Type 2: Yes - HEMATOLOGICAL/ONCOLOGICAL Hx Blood Disorders: No - INTEGUMENTARY Hx Dermatological Problems: Yes Hx Cellulitis: Yes Hx Eczema: Yes - MUSCULOSKELETAL/RHEUMATOLOGICAL Hx Musculoskeletal Disorders: Yes Hx Arthritis: Yes Hx Falls: Yes Hx Fractures: Yes - GASTROINTESTINAL Hx Gastrointestinal Disorders: Yes Hx Gastroesophageal Reflux: Yes Hx Hemorrhoids: Yes - GENITOURINARY/GYNECOLOGICAL Hx Genitourinary Disorders: Yes Hx Urinary Tract Infection: Yes Other/Comment: Rt. AVF - PSYCHIATRIC Hx Psychophysiologic Disorder: Yes Hx Anxiety: Yes Hx Depression: Yes Hx Substance Use: No - SURGICAL HISTORY Hx Surgeries: Yes Hx Arteriovenous Shunt: Yes (right arm) - ANESTHESIA Hx Anesthesia: Yes Hx Anesthesia Reactions: No Hx Malignant Hyperthermia: No Has any member of the family had a problem w/ anesthesia?: No Meds Allergies/Adverse Reactions: Allergies Allergy/AdvReac Type Severity Reaction Status Date / Time No Known Allergies Allergy Verified 02/16/19 04:52 - Medications Medications: Current Medications Albuterol/Ipratropium (Duoneb 3 Mg/0.5 Mg (3 Ml) Ud) 3 ml INH RQ8 [facility] Last Admin: 02/16/19 15:48 Dose: 3 ml Aspirin (Aspirin Chewable) 81 mg PO DAILY [facility] Last Admin: 02/16/19 11:00 Dose: 81 mg Atenolol (Tenormin) 50 mg PO DAILY [facility] Last Admin: 02/16/19 11:00 Dose: 50 mg Clopidogrel Bisulfate (Plavix) 75 mg PO DAILY [facility] Last Admin: 02/16/19 11:00 Dose: 75 mg Donepezil HCl (Aricept) 10 mg PO [facility] Enalapril Maleate (Vasotec) 10 mg PO DAILY [facility] Last Admin: 02/16/19 11:00 Dose: 10 mg Famotidine (Pepcid) 20 mg PO DAILY [facility] Last Admin: 02/16/19 11:00 Dose: 20 mg Gabapentin (Neurontin) 100 mg PO DAILY [facility] Heparin Sodium (Porcine) (Heparin) 5,000 units SC Q12 [facility] Last Admin: 02/16/19 11:00 Dose: 5,000 units Hydralazine HCl (Apresoline) 25 mg PO TID [facility] Last Admin: 02/16/19 14:04 Dose: 25 mg Insulin Aspart (Novolog) 14 unit SC BIDAC [facility] Last Admin: 02/16/19 17:22 Dose: Not Given Insulin Human Regular (Novolin R) 0 unit SC ACHS [facility]; Protocol Last Admin: 02/16/19 17:22 Dose: Not Given Montelukast Sodium (Singulair) 10 mg PO DAILY [facility] Last Admin: 02/16/19 11:01 Dose: 10 mg Oxybutynin Chloride (Ditropan Xl) 5 mg PO DAILY [facility] Quetiapine Fumarate (Seroquel) 25 mg PO DAILY [facility] Last Admin: 02/16/19 11:01 Dose: Not Given Rosuvastatin Calcium (Crestor) 5 mg PO HS [facility] Sevelamer Carbonate (Renvela) 800 mg PO TIDCC [facility] Last Admin: 02/16/19 17:22 Dose: Not Given Sitagliptin Phosphate (Januvia) 25 mg PO DAILY [facility] Last Admin: 02/16/19 11:00 Dose: 25 mg Results - Vital Signs Recent Vital Signs: Last Vital Signs Temp 97.1 F L 02/16/19 18:32 Pulse 66 02/16/19 18:32 Resp 18 02/16/19 18:32 BP 130/70 02/16/19 21:00 Pulse Ox 100 02/16/19 18:32 - Labs Result Diagrams: 02/16/19 05:18 02/16/19 05:18 Labs: Laboratory Results - last 24 hr 02/16/19 02/16/19 02/16/19 05:11 05:14 05:18 WBC 7.1 RBC 4.12 Hgb 10.5 L Hct 34.0 MCV 82.5 MCH 25.6 L MCHC 31.0 L RDW 20.4 H Plt Count 191 MPV 10.1 Neut % (Auto) 81.7 H Lymph % (Auto) 6.2 L Bergen % (Auto) 11.5 H Eos % (Auto) 0.2 Baso % (Auto) 0.4 Neut # (Auto) 5.8 Lymph # (Auto) 0.4 L Berg[place] # (Auto) 0.8 Eos # (Auto) 0.0 Baso # (Auto) 0.0 Neutrophils % (Manual) 90 H Lymphocytes % (Manual) 5 L Monocytes % (Manual) 5 Platelet Estimate Normal PT INR APTT Puncture Site pCO2 pO2 HCO3 ABG pH ABG Total CO2 ABG O2 Saturation ABG Base Excess ABG Hemoglobin ABG Carboxyhemoglobin POC ABG HHb (Measured) ABG Methemoglobin Mohinder Test VBG pH VBG pCO2 VBG HCO3 VBG Total CO2 VBG O2 Sat (Calc) VBG Base Excess VBG Potassium Hgb O2 Saturation Glucose Lactate Liter Flow Blood Gas Comments Crit Value Called To Crit Value Called By Crit Value Read Back Blood Gas Notified Time Sodium Potassium Chloride Carbon Dioxide Anion Gap BUN Creatinine Est GFR ( Amer) Est GFR (Non-Af Amer) POC Glucose (mg/dL) > 500 H* > 500 H* Random Glucose Calcium Total Bilirubin AST ALT Alkaline Phosphatase Troponin I NT-Pro-B Natriuret Pep Total Protein Albumin Globulin Albumin/Globulin Ratio Lipase Free T4 TSH 3rd Generation Venous Blood Potassium 02/16/19 02/16/19 02/16/19 05:18 05:18 05:20 WBC RBC Hgb Hct MCV MCH MCHC RDW Plt Count MPV Neut % (Auto) Lymph % (Auto) Bergen % (Auto) Eos % (Auto) Baso % (Auto) Neut # (Auto) Lymph # (Auto) Bergen # (Auto) Eos # (Auto) Baso # (Auto) Neutrophils % (Manual) Lymphocytes % (Manual) Monocytes % (Manual) Platelet Estimate PT 12.6 H INR 1.2 APTT 36.4 H Puncture Site pCO2 pO2 31 HCO3 ABG pH ABG Total CO2 ABG O2 Saturation ABG Base Excess ABG Hemoglobin ABG Carboxyhemoglobin POC ABG HHb (Measured) ABG Methemoglobin Mohinder Test VBG pH 7.36 VBG pCO2 41 VBG HCO3 22.1 VBG Total CO2 24.5 VBG O2 Sat (Calc) 59.9 VBG Base Excess -2.2 L VBG Potassium 5.3 H Hgb O2 Saturation Glucose 572 H* D Lactate 2.2 H Liter Flow Blood Gas Comments Glu 572 Crit Value Called To Crit Value Called By Nicolas cervantes Crit Value Read Back Y Blood Gas Notified Time 530 Sodium 133 132.0 Potassium 5.7 H Chloride 94 L 96.0 L Carbon Dioxide 23 Anion Gap 22 H BUN 67 H Creatinine 5.9 H Est GFR ( Amer) 8 Est GFR (Non-Af Amer) 7 POC Glucose (mg/dL) Random Glucose 672 H* D Calcium 10.2 Total Bilirubin 0.9 AST 44 H ALT 50 Alkaline Phosphatase 169 H D Troponin I 0.2210 H* NT-Pro-B Natriuret Pep 17235 H Total Protein 7.3 Albumin 4.1 Globulin 3.2 Albumin/Globulin Ratio 1.3 Lipase 120 Free T4 TSH 3rd Generation Venous Blood Potassium 5.3 H 02/16/19 02/16/19 02/16/19 06:55 10:52 11:16 WBC RBC Hgb Hct MCV MCH MCHC RDW Plt Count MPV Neut % (Auto) Lymph % (Auto) Bergen % (Auto) Eos % (Auto) Baso % (Auto) Neut # (Auto) Lymph # (Auto) Bergen # (Auto) Eos # (Auto) Baso # (Auto) Neutrophils % (Manual) Lymphocytes % (Manual) Monocytes % (Manual) Platelet Estimate PT INR APTT Puncture Site pCO2 pO2 HCO3 ABG pH ABG Total CO2 ABG O2 Saturation ABG Base Excess ABG Hemoglobin ABG Carboxyhemoglobin POC ABG HHb (Measured) ABG Methemoglobin Mohinder Test VBG pH VBG pCO2 VBG HCO3 VBG Total CO2 VBG O2 Sat (Calc) VBG Base Excess VBG Potassium Hgb O2 Saturation Glucose Lactate Liter Flow Blood Gas Comments Crit Value Called To Crit Value Called By Crit Value Read Back Blood Gas Notified Time Sodium Potassium Chloride Carbon Dioxide Anion Gap BUN Creatinine Est GFR ( Amer) Est GFR (Non-Af Amer) POC Glucose (mg/dL) 374 H 232 H Random Glucose Calcium Total Bilirubin AST ALT Alkaline Phosphatase Troponin I 0.2500 H* NT-Pro-B Natriuret Pep Total Protein Albumin Globulin Albumin/Globulin Ratio Lipase Free T4 TSH 3rd Generation Venous Blood Potassium 02/16/19 02/16/19 02/16/19 11:16 14:48 16:30 WBC RBC Hgb Hct MCV MCH MCHC RDW Plt Count MPV Neut % (Auto) Lymph % (Auto) Bergen % (Auto) Eos % (Auto) Baso % (Auto) Neut # (Auto) Lymph # (Auto) Berg[place] # (Auto) Eos # (Auto) Baso # (Auto) Neutrophils % (Manual) Lymphocytes % (Manual) Monocytes % (Manual) Platelet Estimate PT INR APTT Puncture Site Lra pCO2 31 L pO2 124 H HCO3 22.5 ABG pH 7.43 ABG Total CO2 21.6 L ABG O2 Saturation 99.4 H ABG Base Excess -3.1 L ABG Hemoglobin 9.2 L ABG Carboxyhemoglobin 1.3 POC ABG HHb (Measured) 0.6 ABG Methemoglobin 0.7 Mohinder Test Yes VBG pH VBG pCO2 VBG HCO3 VBG Total CO2 VBG O2 Sat (Calc) VBG Base Excess VBG Potassium Hgb O2 Saturation 97.3 Glucose Lactate Liter Flow 2.0 Blood Gas Comments Crit Value Called To Crit Value Called By Crit Value Read Back Blood Gas Notified Time Sodium Potassium Chloride Carbon Dioxide Anion Gap BUN Creatinine Est GFR ( Amer) Est GFR (Non-Af Amer) POC Glucose (mg/dL) 84 Random Glucose Calcium Total Bilirubin AST ALT Alkaline Phosphatase Troponin I NT-Pro-B Natriuret Pep Total Protein Albumin Globulin Albumin/Globulin Ratio Lipase Free T4 1.74 TSH 3rd Generation < 0.02 L Venous Blood Potassium 02/16/19 21:11 WBC RBC Hgb Hct MCV MCH MCHC RDW Plt Count MPV Neut % (Auto) Lymph % (Auto) Berg[place] % (Auto) Eos % (Auto) Baso % (Auto) Neut # (Auto) Lymph # (Auto) [place] # (Auto) Eos # (Auto) Baso # (Auto) Neutrophils % (Manual) Lymphocytes % (Manual) Monocytes % (Manual) Platelet Estimate PT INR APTT Puncture Site pCO2 pO2 HCO3 ABG pH ABG Total CO2 ABG O2 Saturation ABG Base Excess ABG Hemoglobin ABG Carboxyhemoglobin POC ABG HHb (Measured) ABG Methemoglobin Mohinder Test VBG pH VBG pCO2 VBG HCO3 VBG Total CO2 VBG O2 Sat (Calc) VBG Base Excess VBG Potassium Hgb O2 Saturation Glucose Lactate Liter Flow Blood Gas Comments Crit Value Called To Crit Value Called By Crit Value Read Back Blood Gas Notified Time Sodium Potassium Chloride Carbon Dioxide Anion Gap BUN Creatinine Est GFR ( Amer) Est GFR (Non-Af Amer) POC Glucose (mg/dL) 147 H Random Glucose Calcium Total Bilirubin AST ALT Alkaline Phosphatase Troponin I NT-Pro-B Natriuret Pep Total Protein Albumin Globulin Albumin/Globulin Ratio Lipase Free T4 TSH 3rd Generation Venous Blood Potassium Assessment & Plan - Assessment and Plan (Free Text) Assessment: ESRD ON HD [facility] .. RECIEVED HER HD TODAY ANEMIA OF CKD .. H/H STABLE HYPERKALEMIA .. RECIEVED HD TODAY LOWER GI BLEED MMP P : HD WAS DONE TODAY C/O CURRENT CARE C/O PRESENT MEDS WILL F/U CLOSELY - Date & Time Date: 02/16/19 Time: 15:00
--- NOTE | 2019-02-16 22:20 | CP.PCM.PN ---
Subjective - Date & Time of Evaluation Date of Evaluation: 02/16/19 Time of Evaluation: 15:45 - Subjective Subjective: 83 years old female was brought by ambulance to the ED at [facility] because of a LLQ abdominal pain. She denies any nausea, vomiting, diarrhea, constipation, fever, chest pain, shortness of breath. She was recently hospitalized for chest pain. She is known to have an IDDM, a HPTN, an ESRD on HD, a senile dementia, a CAD. A CTscan of the abdomen and pelvis reveals questionable enteritis. CXR reveals small bilateral effusions. ECG: sisnus tachycardia, with T wave inversion in leads I, avL. Serum TNI: 0,2 Serum glucos e: 600 Objective - Vital Signs/Intake and Output Vital Signs (last 24 hours): Temp Pulse Resp BP Pulse Ox 98.9 F 73 20 132/74 95 02/16/19 21:45 02/16/19 21:45 02/16/19 21:45 02/16/19 21:45 02/16/19 21:45 - Medications Medications: Current Medications Albuterol/Ipratropium (Duoneb 3 Mg/0.5 Mg (3 Ml) Ud) 3 ml INH RQ8 [facility] Last Admin: 02/16/19 15:48 Dose: 3 ml Aspirin (Aspirin Chewable) 81 mg PO DAILY [facility] Last Admin: 02/16/19 11:00 Dose: 81 mg Atenolol (Tenormin) 50 mg PO DAILY [facility] Last Admin: 02/16/19 11:00 Dose: 50 mg Clopidogrel Bisulfate (Plavix) 75 mg PO DAILY [facility] Last Admin: 02/16/19 11:00 Dose: 75 mg Donepezil HCl (Aricept) 10 mg PO HS [facility] Last Admin: 02/16/19 22:11 Dose: 10 mg Enalapril Maleate (Vasotec) 10 mg PO DAILY [facility] Last Admin: 02/16/19 11:00 Dose: 10 mg Famotidine (Pepcid) 20 mg PO DAILY [facility] Last Admin: 02/16/19 11:00 Dose: 20 mg Gabapentin (Neurontin) 100 mg PO DAILY [facility] Heparin Sodium (Porcine) (Heparin) 5,000 units SC Q12 [facility] Last Admin: 02/16/19 22:11 Dose: 5,000 units Hydralazine HCl (Apresoline) 25 mg PO TID [facility] Last Admin: 02/16/19 18:00 Dose: Not Given Insulin Aspart (Novolog) 14 unit SC BIDAC [facility] Last Admin: 02/16/19 17:22 Dose: Not Given Insulin Human Regular (Novolin R) 0 unit SC ACHS [facility]; Protocol Last Admin: 02/16/19 21:53 Dose: Not Given Montelukast Sodium (Singulair) 10 mg PO DAILY [facility] Last Admin: 02/16/19 11:01 Dose: 10 mg Oxybutynin Chloride (Ditropan Xl) 5 mg PO DAILY [facility] Quetiapine Fumarate (Seroquel) 25 mg PO DAILY [facility] Last Admin: 02/16/19 11:01 Dose: Not Given Rosuvastatin Calcium (Crestor) 5 mg PO HS [facility] Last Admin: 02/16/19 22:11 Dose: 5 mg Sevelamer Carbonate (Renvela) 800 mg PO TIDCC [facility] Last Admin: 02/16/19 17:22 Dose: Not Given Sitagliptin Phosphate (Januvia) 25 mg PO DAILY [facility] Last Admin: 02/16/19 11:00 Dose: 25 mg - Labs Labs: 02/16/19 05:18 02/16/19 05:18 PT 12.6 SECONDS (9.7-12.2) H 02/16/19 05:18 INR 1.2 02/16/19 05:18 APTT 36.4 SECONDS (21-34) H 02/16/19 05:18 - Constitutional Appears: No Acute Distress, Chronically Ill - Head Exam Head Exam: NORMOCEPHALIC - Eye Exam Eye Exam: Normal appearance - ENT Exam ENT Exam: Normal Exam - Neck Exam Neck Exam: Normal Inspection - Respiratory Exam Respiratory Exam: Rhonchi - Cardiovascular Exam Cardiovascular Exam: REGULAR RHYTHM - GI/Abdominal Exam GI & Abdominal Exam: Soft, Normal Bowel Sounds Additional comments: Mild LLQ tanderness. - Rectal Exam Rectal Exam: Deferred - Extremities Exam Extremities Exam: Normal Inspection - Back Exam Back Exam: NORMAL INSPECTION - Neurological Exam Neurological Exam: Alert, Awake Additional comments: Slightly confused. - Psychiatric Exam Psychiatric exam: Anxious - Skin Skin Exam: Dry, Intact, Normal Color Assessment and Plan (1) Elevated troponin Assessment & Plan: Probably secondary to ESRD. To order serial ECG's and TNI's to r/o myocardial ischemia. Status: Acute (2) Uncontrolled diabetes mellitus Status: Acute (3) ESRD (end stage renal disease) on dialysis Assessment & Plan: Hemodialysis as per Nephrologists. Status: Chronic
[2019-02-17] MEDS: Albuterol-Ipratrop 3 mg / 0.5 (3 ml) UD INH SCH ×3 (00:52→23:48)
[2019-02-17 06:46] LABS: BASO % 0.5 % (0.0-2.0); EOS # 0.3 K/uL (0.0-0.7); EOS % 4.2 % (0.0-4.0); HEMOGLOBIN 10.7 g/dL (11.0-16.0); LYMPH % 13.5 % (20.0-40.0); MEAN CELL VOLUME 79.8 fL (81.0-99.0); MEAN CORPUSCULAR HEMOGLOBIN 26.1 pg (27.0-31.0); MEAN CORPUSCULAR HGB CONC 32.7 g/dL (33.0-37.0); MEAN PLATELET VOLUME 9.6 fL (7.2-11.7); MONO # 0.9 K/uL (0.0-0.8); MONO % 12.3 % (0.0-10.0); NEUT # 4.9 K/uL (1.8-7.0); NEUT % 69.5 % (50.0-75.0); NRBC % 0.1 % (0.0-2.0); RBC 4.11 Mil/uL (3.80-5.20); RED CELL DISTRIBUTION WIDTH 20.3 % (11.5-14.5); WHITE BLOOD COUNT 7.1 K/uL (4.8-10.8)
--- NOTE | 2019-02-17 07:24 | CON ---
DATE: 02/16/2019 HISTORY OF PRESENT ILLNESS: This 83-year-old lady was admitted via the ER with left lower abdominal pain. There was no vomiting, no constipation or dark stools. She also complained of mild shortness of breath with occasional cough. There was no chest pain. No history of fever, sweating, or headache. No hemoptysis and no hematemesis. PAST MEDICAL HISTORY: Includes arthritis, COPD, cardiac arrhythmias, CHF, depression, diabetes mellitus, emphysema, hypertension, hypertensive cardiovascular disease, coronary artery disease, end-stage renal failure, chronic renal disease and the patient has been on regular scheduled dialysis. SOCIAL HISTORY: There is no reported history of smoking, alcohol consumption, or substance use. FAMILY HISTORY: Reported as unremarkable. REVIEW OF SYSTEMS: Systemic review shows no seizures and central nervous system reviewed. Review of the other systems as reported above with a history of arthritis, COPD, coronary artery disease, hypertension, diabetes mellitus, and renal failure. PHYSICAL EXAMINATION: GENERAL: She is alert and oriented. VITAL SIGNS: Afebrile with blood pressure 156/80, pulse 104, respirations 22 with hemoglobin oxygen saturation of 98%. LABORATORY DATA: White count is 7,100, hemoglobin 10.5, and platelets 191,000. INR 1.2. ABG showed pH 7.36, PCO2 of 41, PO2 of 31, that is on the blood from venous blood gases. Glucose is 572, lactate 2.2, that was on venous blood in the ABG report. Serum sodium is 133, potassium 5.7, chloride 194, BUN 67, creatinine 5.9, blood glucose 232, alkaline phosphatase 169, troponin 0.22, proBNP is 80,800. Chest x-ray shows large heart and right lower lobe infiltrates and basal congestion. IMPRESSION: Respiratory insufficiency, chronic obstructive pulmonary disease, arthritis, diabetes mellitus, hypertension, hypertensive cardiovascular disease, congestive heart failure, chronic renal disease, and end-stage renal failure. The patient is on dialysis therapy. right brachiocephalic vascular stent, internal dialysis catheter on chest x-ray. PLAN: To continue with current medications including bronchodilators and vasodilators, vascular followup and renal followup, and treatment for diabetes and congestive heart failure and arthritis and DVT prophylaxis as well as BiPAP therapy at night. We will do stat arterial ABGs now. Francisco Javier MD [facility]
[2019-02-17] MEDS: (Novolin R) Insulin Human Regular 100 units/ml vial SC SCH ×4 (08:23→21:20)
[2019-02-17] MEDS: (Novolog) Insulin Aspart, Recombinant 100 u/ml 10 ml vial SC SCH ×2 (08:23→16:26)
--- NOTE | 2019-02-17 12:14 | RAD ---
Date of service: 02/17/2019 HISTORY: chf COMPARISON: 02/16/2019 TECHNIQUE: 1 view obtained. FINDINGS: LUNGS: Opacity again noted at medial right lung base. Uncertain significance. Slightly improved compared to prior examination though this may be partially due to radiographic technique. No other abnormal opacity elsewhere. PLEURA: No significant pleural effusion identified, no pneumothorax apparent. CARDIOVASCULAR: No aortic atherosclerotic calcification present. Normal cardiac size. Tunneled central venous dialysis catheter. No congestive change. Right brachiocephalic stent noted. OSSEOUS STRUCTURES: No significant abnormalities. VISUALIZED UPPER ABDOMEN: Normal. OTHER FINDINGS: None. IMPRESSION: Opacity at medial right lung base of uncertain significance. No other significant acute abnormality.
--- NOTE | 2019-02-17 18:45 | CP.PCM.PN ---
Subjective - Date & Time of Evaluation Date of Evaluation: 02/17/19 Time of Evaluation: 16:00 - Subjective Subjective: SEEN ON RENAL F/U FEELS BETTER ALL PREVIOUS EMR REVIEWED LABS REVIEWD 83 years old female was brought by ambulance to the ED at [facility] because of a LLQ abdominal pain. She denies any nausea, vomiting, diarrhea, constipation, fever, chest pain, shortness of breath. She was recently hospitalized for chest pain. She is known to have an IDDM, a HPTN, an ESRD on HD, a senile dementia, a CAD. A CTscan of the abdomen and pelvis reveals questionable enteritis. CXR reveals small bilateral effusions. ECG: sisnus tachycardia, with T wave inversion in leads I, avL. Serum TNI: 0,2 Serum gluc ose: 600 Objective - Vital Signs/Intake and Output Vital Signs (last 24 hours): Temp Pulse Resp BP Pulse Ox 97.8 F 66 20 117/70 100 02/17/19 16:09 02/17/19 16:09 02/17/19 16:09 02/17/19 16:09 02/17/19 16:09 - Medications Medications: Current Medications Albuterol/Ipratropium (Duoneb 3 Mg/0.5 Mg (3 Ml) Ud) 3 ml INH RQ8 [facility] Last Admin: 02/17/19 07:55 Dose: 3 ml Aspirin (Aspirin Chewable) 81 mg PO DAILY [facility] Last Admin: 02/17/19 09:19 Dose: 81 mg Atenolol (Tenormin) 50 mg PO DAILY [facility] Last Admin: 02/17/19 09:19 Dose: 50 mg Clopidogrel Bisulfate (Plavix) 75 mg PO DAILY [facility] Last Admin: 02/17/19 09:19 Dose: 75 mg Donepezil HCl (Aricept) 10 mg PO HS [facility] Last Admin: 02/16/19 22:11 Dose: 10 mg Enalapril Maleate (Vasotec) 10 mg PO DAILY [facility] Last Admin: 02/17/19 09:19 Dose: 10 mg Famotidine (Pepcid) 20 mg PO DAILY [facility] Last Admin: 02/17/19 09:19 Dose: 20 mg Gabapentin (Neurontin) 100 mg PO DAILY [facility] Last Admin: 02/17/19 09:19 Dose: 100 mg Heparin Sodium (Porcine) (Heparin) 5,000 units SC Q12 [facility] Last Admin: 02/16/19 22:11 Dose: 5,000 units Hydralazine HCl (Apresoline) 25 mg PO TID [facility] Last Admin: 02/17/19 17:03 Dose: 25 mg Insulin Aspart (Novolog) 14 unit SC BIDAC [facility] Last Admin: 02/17/19 16:26 Dose: Not Given Insulin Human Regular (Novolin R) 0 unit SC ACHS [facility]; Protocol Last Admin: 02/17/19 16:26 Dose: Not Given Montelukast Sodium (Singulair) 10 mg PO DAILY [facility] Last Admin: 02/17/19 09:19 Dose: 10 mg Oxybutynin Chloride (Ditropan Xl) 5 mg PO DAILY [facility] Last Admin: 02/17/19 09:19 Dose: 5 mg Quetiapine Fumarate (Seroquel) 25 mg PO DAILY [facility] Last Admin: 02/17/19 09:18 Dose: 25 mg Rosuvastatin Calcium (Crestor) 5 mg PO HS [facility] Last Admin: 02/16/19 22:11 Dose: 5 mg Sevelamer Carbonate (Renvela) 800 mg PO TIDCC [facility] Last Admin: 02/17/19 17:02 Dose: 800 mg Sitagliptin Phosphate (Januvia) 25 mg PO DAILY [facility] Last Admin: 02/17/19 09:19 Dose: 25 mg - Labs Labs: 02/17/19 06:38 02/17/19 06:38 PT 12.6 SECONDS (9.7-12.2) H 02/16/19 05:18 INR 1.2 02/16/19 05:18 APTT 36.4 SECONDS (21-34) H 02/16/19 05:18 Assessment and Plan - Assessment and Plan (Free Text) Assessment: ESRD ON HD M W F ANEMIA OF CKD .. H/H OK ELECTROLYTES OK MMP P : C/O CURRENT CARE C/O SAME MEDS
[2019-02-17] MEDS: Ergocalciferol 50,000 Intl Units Cap PO SCH (19:53)
--- NOTE | 2019-02-17 21:57 | CP.PCM.PN ---
Subjective - Date & Time of Evaluation Date of Evaluation: 02/17/19 Time of Evaluation: 13:30 - Subjective Subjective: Patient has no complaint today. Serum TNI: 0.2. Blood glucose much better. ECG unchanged. Objective - Vital Signs/Intake and Output Vital Signs (last 24 hours): Temp Pulse Resp BP Pulse Ox 97.8 F 66 20 117/70 100 02/17/19 16:09 02/17/19 16:09 02/17/19 16:09 02/17/19 16:09 02/17/19 16:09 - Medications Medications: Current Medications Albuterol/Ipratropium (Duoneb 3 Mg/0.5 Mg (3 Ml) Ud) 3 ml INH RQ8 [facility] Last Admin: 02/17/19 07:55 Dose: 3 ml Aspirin (Aspirin Chewable) 81 mg PO DAILY [facility] Last Admin: 02/17/19 09:19 Dose: 81 mg Atenolol (Tenormin) 50 mg PO DAILY [facility] Last Admin: 02/17/19 09:19 Dose: 50 mg Clopidogrel Bisulfate (Plavix) 75 mg PO DAILY [facility] Last Admin: 02/17/19 09:19 Dose: 75 mg Donepezil HCl (Aricept) 10 mg PO HS [facility] Last Admin: 02/17/19 21:30 Dose: 10 mg Enalapril Maleate (Vasotec) 10 mg PO DAILY [facility] Last Admin: 02/17/19 09:19 Dose: 10 mg Ergocalciferol (Drisdol 50,000 Intl Units Cap) 1 cap PO Q7D [facility] Last Admin: 02/17/19 19:53 Dose: 1 cap Famotidine (Pepcid) 20 mg PO DAILY [facility] Last Admin: 02/17/19 09:19 Dose: 20 mg Gabapentin (Neurontin) 100 mg PO DAILY [facility] Last Admin: 02/17/19 09:19 Dose: 100 mg Heparin Sodium (Porcine) (Heparin) 5,000 units SC Q12 [facility] Last Admin: 02/17/19 21:30 Dose: 5,000 units Hydralazine HCl (Apresoline) 25 mg PO TID [facility] Last Admin: 02/17/19 17:03 Dose: 25 mg Insulin Aspart (Novolog) 14 unit SC BIDAC [facility] Last Admin: 02/17/19 16:26 Dose: Not Given Insulin Human Regular (Novolin R) 0 unit SC ACHS [facility]; Protocol Last Admin: 02/17/19 21:20 Dose: Not Given Montelukast Sodium (Singulair) 10 mg PO DAILY [facility] Last Admin: 02/17/19 09:19 Dose: 10 mg Oxybutynin Chloride (Ditropan Xl) 5 mg PO DAILY [facility] Last Admin: 02/17/19 09:19 Dose: 5 mg Quetiapine Fumarate (Seroquel) 25 mg PO DAILY [facility] Last Admin: 02/17/19 09:18 Dose: 25 mg Rosuvastatin Calcium (Crestor) 5 mg PO HS [facility] Last Admin: 02/17/19 21:30 Dose: 5 mg Sevelamer Carbonate (Renvela) 800 mg PO TIDCC [facility] Last Admin: 02/17/19 17:02 Dose: 800 mg Sitagliptin Phosphate (Januvia) 25 mg PO DAILY [facility] Last Admin: 02/17/19 09:19 Dose: 25 mg Vitamin B Complex/Vit C/Folic Acid (Nephro-Marina) 1 tab PO 0800 [facility] Vitamin B Complex/Vit C/Folic Acid (Nephro-Marina) 1 tab PO DAILY [facility] - Labs Labs: 02/17/19 06:38 02/17/19 06:38 PT 12.6 SECONDS (9.7-12.2) H 02/16/19 05:18 INR 1.2 02/16/19 05:18 APTT 36.4 SECONDS (21-34) H 02/16/19 05:18 - Constitutional Appears: No Acute Distress, Confused, Chronically Ill - Head Exam Head Exam: NORMAL INSPECTION - Eye Exam Eye Exam: Normal appearance - ENT Exam ENT Exam: Normal Exam - Neck Exam Neck Exam: Normal Inspection - Respiratory Exam Respiratory Exam: Clear to Ausculation Bilateral - Cardiovascular Exam Cardiovascular Exam: REGULAR RHYTHM - GI/Abdominal Exam GI & Abdominal Exam: Soft, Normal Bowel Sounds - Rectal Exam Rectal Exam: Deferred - Exam Exam: NORMAL INSPECTION - Extremities Exam Extremities Exam: Normal Inspection - Back Exam Back Exam: NORMAL INSPECTION - Neurological Exam Neurological Exam: Alert, Awake Additional comments: Slightly confused. - Psychiatric Exam Psychiatric exam: Anxious - Skin Skin Exam: Dry, Intact, Normal Color, Warm Assessment and Plan (1) Elevated troponin Status: Acute (2) Uncontrolled diabetes mellitus Status: Acute (3) ESRD (end stage renal disease) on dialysis Status: Chronic
--- NOTE | 2019-02-17 23:08 | CP.PCM.PN ---
Subjective - Date & Time of Evaluation Date of Evaluation: 02/17/19 Time of Evaluation: 19:05 - Subjective Subjective: patient resting comfortably. She denies any chest pain. troponin levels still elevated. Patient was evaluated by Dr Mei. CT scan of the abdomen and pelvis revealed nonspecific swollen lymph nodes. patient has extensive diver ticulosis. Abnormal opacity seen in the right lung on chest x-ray. chest CT and bone scan requested. Objective - Vital Signs/Intake and Output Vital Signs (last 24 hours): Temp Pulse Resp BP Pulse Ox 97.8 F 66 20 117/70 100 02/17/19 16:09 02/17/19 16:09 02/17/19 16:09 02/17/19 16:09 02/17/19 16:09 - Medications Medications: Current Medications Albuterol/Ipratropium (Duoneb 3 Mg/0.5 Mg (3 Ml) Ud) 3 ml INH RQ8 [facility] Last Admin: 02/17/19 07:55 Dose: 3 ml Aspirin (Aspirin Chewable) 81 mg PO DAILY [facility] Last Admin: 02/17/19 09:19 Dose: 81 mg Atenolol (Tenormin) 50 mg PO DAILY [facility] Last Admin: 02/17/19 09:19 Dose: 50 mg Clopidogrel Bisulfate (Plavix) 75 mg PO DAILY [facility] Last Admin: 02/17/19 09:19 Dose: 75 mg Donepezil HCl (Aricept) 10 mg PO HS [facility] Last Admin: 02/17/19 21:30 Dose: 10 mg Enalapril Maleate (Vasotec) 10 mg PO DAILY [facility] Last Admin: 02/17/19 09:19 Dose: 10 mg Ergocalciferol (Drisdol 50,000 Intl Units Cap) 1 cap PO Q7D [facility] Last Admin: 02/17/19 19:53 Dose: 1 cap Famotidine (Pepcid) 20 mg PO DAILY [facility] Last Admin: 02/17/19 09:19 Dose: 20 mg Gabapentin (Neurontin) 100 mg PO DAILY [facility] Last Admin: 02/17/19 09:19 Dose: 100 mg Heparin Sodium (Porcine) (Heparin) 5,000 units SC Q12 [facility] Last Admin: 02/17/19 21:30 Dose: 5,000 units Hydralazine HCl (Apresoline) 25 mg PO TID [facility] Last Admin: 02/17/19 17:03 Dose: 25 mg Insulin Aspart (Novolog) 14 unit SC BIDAC [facility] Last Admin: 02/17/19 16:26 Dose: Not Given Insulin Human Regular (Novolin R) 0 unit SC ACHS [facility]; Protocol Last Admin: 02/17/19 21:20 Dose: Not Given Montelukast Sodium (Singulair) 10 mg PO DAILY [facility] Last Admin: 02/17/19 09:19 Dose: 10 mg Oxybutynin Chloride (Ditropan Xl) 5 mg PO DAILY [facility] Last Admin: 02/17/19 09:19 Dose: 5 mg Quetiapine Fumarate (Seroquel) 25 mg PO DAILY [facility] Last Admin: 02/17/19 09:18 Dose: 25 mg Rosuvastatin Calcium (Crestor) 5 mg PO HS [facility] Last Admin: 02/17/19 21:30 Dose: 5 mg Sevelamer Carbonate (Renvela) 800 mg PO TIDCC [facility] Last Admin: 02/17/19 17:02 Dose: 800 mg Sitagliptin Phosphate (Januvia) 25 mg PO DAILY [facility] Last Admin: 02/17/19 09:19 Dose: 25 mg Vitamin B Complex/Vit C/Folic Acid (Nephro-Marina) 1 tab PO 0800 [facility] Vitamin B Complex/Vit C/Folic Acid (Nephro-Marina) 1 tab PO DAILY [facility] - Labs Labs: 02/17/19 06:38 02/17/19 06:38 PT 12.6 SECONDS (9.7-12.2) H 02/16/19 05:18 INR 1.2 02/16/19 05:18 APTT 36.4 SECONDS (21-34) H 02/16/19 05:18 - Constitutional Appears: In Acute Distress - Head Exam Head Exam: NORMOCEPHALIC - Eye Exam Eye Exam: Normal appearance Pupil Exam: NORMAL ACCOMODATION - ENT Exam ENT Exam: Normal Exam - Neck Exam Neck Exam: Normal Inspection - Respiratory Exam Respiratory Exam: Decreased Breath Sounds - Cardiovascular Exam Cardiovascular Exam: REGULAR RHYTHM - GI/Abdominal Exam GI & Abdominal Exam: Normal Bowel Sounds - Rectal Exam Rectal Exam: Deferred - Extremities Exam Extremities Exam: Normal Inspection - Back Exam Back Exam: NORMAL INSPECTION - Neurological Exam Neurological Exam: Awake - Psychiatric Exam Psychiatric exam: Depressed - Skin Skin Exam: Dry Assessment and Plan (1) Diverticulosis Status: Acute (2) Elevated troponin Status: Acute (3) Hyperglycemia Status: Acute (4) Chronic kidney disease with end stage renal failure on dialysis Status: Chronic
[2019-02-18] MEDS: Albuterol-Ipratrop 3 mg / 0.5 (3 ml) UD INH SCH ×2 (07:40→15:38)
[2019-02-18] MEDS: (Novolin R) Insulin Human Regular 100 units/ml vial SC SCH ×4 (08:05→21:49)
[2019-02-18] MEDS: Multivitamin Vitamin B Complex (Nephro-Vite) Tab PO SCH ×2 (08:06→09:40)
[2019-02-18] MEDS: (Novolog) Insulin Aspart, Recombinant 100 u/ml 10 ml vial SC SCH ×2 (08:06→16:42)
--- NOTE | 2019-02-18 10:53 | CT ---
Date of service: 02/18/2019 PROCEDURE: CT Chest without contrast HISTORY: opacity COMPARISON: February 17, 2019. Single-view chest. Summary of findings on the comparison examination: Opacity at medial right lung base of uncertain significance. 11/05/2018. CT thorax. Summary of findings on the comparison examination: 02/16/2019. CT abdomen and pelvis including lower lung reed. Summary of findings on the comparison examination: Small right pleural effusion. Bibasilar atelectasis/infiltrates. TECHNIQUE: Contiguous axial images were obtained through the chest without intravenous contrast enhancement. Sagittal and coronal reconstructions were performed. Radiation dose: Total exam DLP = 426.17 mGy-cm. This CT exam was performed using one or more of the following dose reduction techniques: Automated exposure control, adjustment of the mA and/or kV according to patient size, and/or use of iterative reconstruction technique. FINDINGS: LUNGS: Improved aeration of the right lower lobe. MEDIASTINUM: Unremarkable thoracic aorta. No aneurysm. Cardiomegaly. No evidence of acute, significant cardiovascular disease. Main pulmonary artery unremarkable. No vascular congestion. No hilar mediastinal lymphadenopathy. 1.3 cm right axillary lymph node. Venous access catheter in stable, satisfactory position. Redemonstration of right subclavian and SVC stent. Decrease in right pleural effusion with commensurate re-expansion of the right lower lobe. PLEURA: No pleural fluid. No pneumothorax. BONES: No fracture. No destructive lesion. Multiple small nodes again identified unchanged. UPPER ABDOMEN: Grossly unremarkable. OTHER FINDINGS: Markedly enlarged thyroid gland. Similar findings identified on prior CT of the thorax. A prior thyroid ultrasound 06/08/2015 is available for review and comparison is inconclusive. Elective follow-up thyroid ultrasound recommended IMPRESSION: Decrease right pleural effusion. Improved aeration right lower lobe. No suspicious pulmonary nodules, masses or infiltrates. Additional benign and/or incidental findings described above.
--- NOTE | 2019-02-18 11:50 | CARD ---
APPROVED REPORT Date of service: 02/16/2019 EKG Measurement Heart [id number] <Conclusion> Normal sinus rhythm Possible Left atrial enlargement Left anterior fascicular block T wave abnormality, consider anterolateral ischemia Prolonged QT Abnormal ECG
--- NOTE | 2019-02-18 13:39 | CARD ---
APPROVED REPORT Date of service: 02/16/2019 EKG Measurement Heart [id number] <Conclusion> Sinus tachycardia with fusion complexes Possible Left atrial enlargement Left anterior fascicular block Septal infarct, age undetermined cannot be excluded. T wave abnormality, consider lateral ischemia Abnormal ECG
--- NOTE | 2019-02-18 17:20 | NM ---
Date of service: 02/18/2019 PROCEDURE: Whole Body Bone Scan HISTORY: non specific lymph nodes COMPARISON: None available. TECHNIQUE: Following administration of 23.6 miCu of Tc MDP multiplanar whole body images were obtained. FINDINGS: Evidence for bony metastatic disease: None. Degenerative uptake: Bilateral knees, right shoulder. Thoracolumbar scoliosis, secondary degenerative change lower thoracic spine. Physiologic uptake: Normal physiologic activity in the kidneys. Other findings: None. IMPRESSION: No evidence of bony metastatic disease. Degenerative changes in the axial and appendicular skeleton as described above.
--- NOTE | 2019-02-18 22:23 | CP.PCM.PN ---
Subjective - Date & Time of Evaluation Date of Evaluation: 02/18/19 Time of Evaluation: 19:05 - Subjective Subjective: patient undergoing dialysis. Denies any chest pain. CT scan of the chest reveals enlarged thyroid gland. bone scan reveals no evidence of metastatic disease. Thyroid ultrasound requested. Objective - Vital Signs/Intake and Output Vital Signs (last 24 hours): Temp Pulse Resp BP Pulse Ox 97.4 F L 68 18 147/71 96 02/18/19 19:15 02/18/19 19:15 02/18/19 19:15 02/18/19 21:00 02/18/19 19:15 - Medications Medications: Current Medications Albuterol/Ipratropium (Duoneb 3 Mg/0.5 Mg (3 Ml) Ud) 3 ml INH RQ8 [facility] Last Admin: 02/18/19 15:38 Dose: Not Given Aspirin (Aspirin Chewable) 81 mg PO DAILY [facility] Last Admin: 02/18/19 09:35 Dose: 81 mg Atenolol (Tenormin) 50 mg PO DAILY [facility] Last Admin: 02/17/19 09:19 Dose: 50 mg Clopidogrel Bisulfate (Plavix) 75 mg PO DAILY [facility] Last Admin: 02/18/19 09:35 Dose: 75 mg Donepezil HCl (Aricept) 10 mg PO HS [facility] Last Admin: 02/17/19 21:30 Dose: 10 mg Enalapril Maleate (Vasotec) 10 mg PO DAILY [facility] Last Admin: 02/17/19 09:19 Dose: 10 mg Ergocalciferol (Drisdol 50,000 Intl Units Cap) 1 cap PO Q7D [facility] Last Admin: 02/17/19 19:53 Dose: 1 cap Famotidine (Pepcid) 20 mg PO DAILY [facility] Last Admin: 02/18/19 09:35 Dose: 20 mg Gabapentin (Neurontin) 100 mg PO DAILY [facility] Last Admin: 02/18/19 09:35 Dose: 100 mg Heparin Sodium (Porcine) (Heparin) 5,000 units SC Q12 [facility] Last Admin: 02/18/19 09:35 Dose: 5,000 units Hydralazine HCl (Apresoline) 25 mg PO TID [facility] Last Admin: 02/18/19 17:11 Dose: 25 mg Insulin Aspart (Novolog) 14 unit SC BIDAC [facility] Last Admin: 02/18/19 16:42 Dose: Not Given Insulin Human Regular (Novolin R) 0 unit SC [facility]; Protocol Last Admin: 02/18/19 21:49 Dose: Not Given Montelukast Sodium (Singulair) 10 mg PO DAILY [facility] Last Admin: 02/18/19 09:35 Dose: 10 mg Oxybutynin Chloride (Ditropan Xl) 5 mg PO DAILY [facility] Last Admin: 02/18/19 09:35 Dose: 5 mg Quetiapine Fumarate (Seroquel) 25 mg PO DAILY [facility] Last Admin: 02/18/19 09:35 Dose: 25 mg Rosuvastatin Calcium (Crestor) 5 mg PO HS [facility] Last Admin: 02/17/19 21:30 Dose: 5 mg Sevelamer Carbonate (Renvela) 800 mg PO TIDCC [facility] Last Admin: 02/18/19 17:11 Dose: 800 mg Sitagliptin Phosphate (Januvia) 25 mg PO DAILY [facility] Last Admin: 02/18/19 09:35 Dose: 25 mg Vitamin B Complex/Vit C/Folic Acid (Nephro-Marina) 1 tab PO 0800 [facility] Last Admin: 02/18/19 08:06 Dose: 1 tab Vitamin B Complex/Vit C/Folic Acid (Nephro-Marina) 1 tab PO DAILY [facility] Last Admin: 02/18/19 09:40 Dose: Not Given - Labs Labs: 02/17/19 06:38 02/17/19 06:38 PT 12.6 SECONDS (9.7-12.2) H 02/16/19 05:18 INR 1.2 02/16/19 05:18 APTT 36.4 SECONDS (21-34) H 02/16/19 05:18 - Constitutional Appears: Chronically Ill - Head Exam Head Exam: NORMOCEPHALIC - Eye Exam Eye Exam: Normal appearance Pupil Exam: NORMAL ACCOMODATION - ENT Exam ENT Exam: Normal Exam - Neck Exam Neck Exam: Normal Inspection - Respiratory Exam Respiratory Exam: Decreased Breath Sounds - Cardiovascular Exam Cardiovascular Exam: REGULAR RHYTHM - GI/Abdominal Exam GI & Abdominal Exam: Normal Bowel Sounds - Rectal Exam Rectal Exam: Deferred - Extremities Exam Extremities Exam: Tenderness - Back Exam Back Exam: NORMAL INSPECTION - Neurological Exam Neurological Exam: Awake - Psychiatric Exam Psychiatric exam: Depressed - Skin Skin Exam: Dry Assessment and Plan (1) Diverticulosis Status: Acute (2) Elevated troponin Status: Acute (3) Hyperglycemia Status: Acute (4) Chronic kidney disease with end stage renal failure on dialysis Status: Chronic
--- NOTE | 2019-02-19 00:04 | CP.PCM.PN ---
Subjective - Date & Time of Evaluation Date of Evaluation: 02/19/19 Time of Evaluation: 20:00 - Subjective Subjective: Patient has no complaint of chest pain or SOB. Serum TNI normal today. Blood glucose much better. Objective - Vital Signs/Intake and Output Vital Signs (last 24 hours): Temp Pulse Resp BP Pulse Ox 98.2 F 78 20 142/64 96 02/18/19 22:22 02/18/19 23:00 02/18/19 22:22 02/18/19 22:22 02/18/19 22:22 - Medications Medications: Current Medications Albuterol/Ipratropium (Duoneb 3 Mg/0.5 Mg (3 Ml) Ud) 3 ml INH RQ8 [facility] Last Admin: 02/18/19 15:38 Dose: Not Given Aspirin (Aspirin Chewable) 81 mg PO DAILY [facility] Last Admin: 02/18/19 09:35 Dose: 81 mg Atenolol (Tenormin) 50 mg PO DAILY [facility] Last Admin: 02/17/19 09:19 Dose: 50 mg Clopidogrel Bisulfate (Plavix) 75 mg PO DAILY [facility] Last Admin: 02/18/19 09:35 Dose: 75 mg Donepezil HCl (Aricept) 10 mg PO HS [facility] Last Admin: 02/18/19 22:23 Dose: 10 mg Enalapril Maleate (Vasotec) 10 mg PO DAILY [facility] Last Admin: 02/17/19 09:19 Dose: 10 mg Ergocalciferol (Drisdol 50,000 Intl Units Cap) 1 cap PO Q7D [facility] Last Admin: 02/17/19 19:53 Dose: 1 cap Famotidine (Pepcid) 20 mg PO DAILY [facility] Last Admin: 02/18/19 09:35 Dose: 20 mg Gabapentin (Neurontin) 100 mg PO DAILY [facility] Last Admin: 02/18/19 09:35 Dose: 100 mg Heparin Sodium (Porcine) (Heparin) 5,000 units SC Q12 [facility] Last Admin: 02/18/19 22:23 Dose: 5,000 units Hydralazine HCl (Apresoline) 25 mg PO TID [facility] Last Admin: 02/18/19 17:11 Dose: 25 mg Insulin Aspart (Novolog) 14 unit SC BIDAC [facility] Last Admin: 02/18/19 16:42 Dose: Not Given Insulin Human Regular (Novolin R) 0 unit SC ACHS [facility]; Protocol Last Admin: 02/18/19 21:49 Dose: Not Given Montelukast Sodium (Singulair) 10 mg PO DAILY [facility] Last Admin: 02/18/19 09:35 Dose: 10 mg Oxybutynin Chloride (Ditropan Xl) 5 mg PO DAILY [facility] Last Admin: 02/18/19 09:35 Dose: 5 mg Quetiapine Fumarate (Seroquel) 25 mg PO DAILY [facility] Last Admin: 02/18/19 09:35 Dose: 25 mg Rosuvastatin Calcium (Crestor) 5 mg PO HS [facility] Last Admin: 02/18/19 22:23 Dose: 5 mg Sevelamer Carbonate (Renvela) 800 mg PO TIDCC [facility] Last Admin: 02/18/19 17:11 Dose: 800 mg Sitagliptin Phosphate (Januvia) 25 mg PO DAILY [facility] Last Admin: 02/18/19 09:35 Dose: 25 mg Vitamin B Complex/Vit C/Folic Acid (Nephro-Marina) 1 tab PO 0800 [facility] Last Admin: 02/18/19 08:06 Dose: 1 tab Vitamin B Complex/Vit C/Folic Acid (Nephro-Marina) 1 tab PO DAILY [facility] Last Admin: 02/18/19 09:40 Dose: Not Given - Labs Labs: 02/17/19 06:38 02/17/19 06:38 PT 12.6 SECONDS (9.7-12.2) H 02/16/19 05:18 INR 1.2 02/16/19 05:18 APTT 36.4 SECONDS (21-34) H 02/16/19 05:18 - Constitutional Appears: No Acute Distress, Chronically Ill - Head Exam Head Exam: NORMAL INSPECTION - Eye Exam Eye Exam: Normal appearance - ENT Exam ENT Exam: Normal Exam - Neck Exam Neck Exam: Normal Inspection - Respiratory Exam Additional comments: Few rhonchi right base. - Cardiovascular Exam Cardiovascular Exam: REGULAR RHYTHM - GI/Abdominal Exam GI & Abdominal Exam: Soft, Normal Bowel Sounds - Rectal Exam Rectal Exam: Deferred - Extremities Exam Extremities Exam: Normal Inspection - Back Exam Back Exam: NORMAL INSPECTION - Neurological Exam Neurological Exam: Alert, Awake Additional comments: Slightly confused. - Psychiatric Exam Psychiatric exam: Anxious - Skin Skin Exam: Dry, Intact, Warm Assessment and Plan (1) Elevated troponin Status: Acute (2) Uncontrolled diabetes mellitus Status: Acute (3) ESRD (end stage renal disease) on dialysis Status: Chronic
[2019-02-19] MEDS: Albuterol-Ipratrop 3 mg / 0.5 (3 ml) UD INH SCH ×3 (00:16→16:38)
--- NOTE | 2019-02-19 06:57 | CP.PCM.PN ---
Subjective - Date & Time of Evaluation Date of Evaluation: 02/19/19 Time of Evaluation: 07:00 - Subjective Subjective: SEEN ON RENAL F/U FEELS BETTER ON HD M W F RECIEVED HD YESTERDAY .. TOLERATED WEL Objective - Vital Signs/Intake and Output Vital Signs (last 24 hours): Temp Pulse Resp BP Pulse Ox 99.1 F 80 20 119/69 97 02/18/19 23:30 02/18/19 23:30 02/18/19 23:30 02/18/19 23:30 02/18/19 23:30 - Medications Medications: Current Medications Albuterol/Ipratropium (Duoneb 3 Mg/0.5 Mg (3 Ml) Ud) 3 ml INH RQ8 [facility] Last Admin: 02/19/19 00:16 Dose: Not Given Aspirin (Aspirin Chewable) 81 mg PO DAILY [facility] Last Admin: 02/18/19 09:35 Dose: 81 mg Atenolol (Tenormin) 50 mg PO DAILY [facility] Last Admin: 02/17/19 09:19 Dose: 50 mg Clopidogrel Bisulfate (Plavix) 75 mg PO DAILY [facility] Last Admin: 02/18/19 09:35 Dose: 75 mg Donepezil HCl (Aricept) 10 mg PO HS [facility] Last Admin: 02/18/19 22:23 Dose: 10 mg Enalapril Maleate (Vasotec) 10 mg PO DAILY [facility] Last Admin: 02/17/19 09:19 Dose: 10 mg Ergocalciferol (Drisdol 50,000 Intl Units Cap) 1 cap PO Q7D [facility] Last Admin: 02/17/19 19:53 Dose: 1 cap Famotidine (Pepcid) 20 mg PO DAILY [facility] Last Admin: 02/18/19 09:35 Dose: 20 mg Gabapentin (Neurontin) 100 mg PO DAILY [facility] Last Admin: 02/18/19 09:35 Dose: 100 mg Heparin Sodium (Porcine) (Heparin) 5,000 units SC Q12 [facility] Last Admin: 02/18/19 22:23 Dose: 5,000 units Hydralazine HCl (Apresoline) 25 mg PO TID [facility] Last Admin: 02/18/19 17:11 Dose: 25 mg Insulin Aspart (Novolog) 14 unit SC BIDAC [facility] Last Admin: 02/18/19 16:42 Dose: Not Given Insulin Human Regular (Novolin R) 0 unit SC ACHS [facility]; Protocol Last Admin: 02/18/19 21:49 Dose: Not Given Montelukast Sodium (Singulair) 10 mg PO DAILY [facility] Last Admin: 02/18/19 09:35 Dose: 10 mg Oxybutynin Chloride (Ditropan Xl) 5 mg PO DAILY [facility] Last Admin: 02/18/19 09:35 Dose: 5 mg Quetiapine Fumarate (Seroquel) 25 mg PO DAILY [facility] Last Admin: 02/18/19 09:35 Dose: 25 mg Rosuvastatin Calcium (Crestor) 5 mg PO HS [facility] Last Admin: 02/18/19 22:23 Dose: 5 mg Sevelamer Carbonate (Renvela) 800 mg PO TIDCC [facility] Last Admin: 02/18/19 17:11 Dose: 800 mg Sitagliptin Phosphate (Januvia) 25 mg PO DAILY [facility] Last Admin: 02/18/19 09:35 Dose: 25 mg Vitamin B Complex/Vit C/Folic Acid (Nephro-Marina) 1 tab PO 0800 [facility] Last Admin: 02/18/19 08:06 Dose: 1 tab Vitamin B Complex/Vit C/Folic Acid (Nephro-Marina) 1 tab PO DAILY [facility] Last Admin: 02/18/19 09:40 Dose: Not Given - Labs Labs: 02/17/19 06:38 02/17/19 06:38 PT 12.6 SECONDS (9.7-12.2) H 02/16/19 05:18 INR 1.2 02/16/19 05:18 APTT 36.4 SECONDS (21-34) H 02/16/19 05:18 Assessment and Plan - Assessment and Plan (Free Text) Assessment: ESRD ON HD M W F .. TO BE C/O ANEMIA OF CKD .. H/H STABLE ELECTROLYTES ARE OK MMP P : C/O CURRENT CARE C/O PRESENT MANAGEMENT C/O SAME MEDS
[2019-02-19] MEDS: (Novolin R) Insulin Human Regular 100 units/ml vial SC SCH ×4 (08:55→21:01)
[2019-02-19] MEDS: (Novolog) Insulin Aspart, Recombinant 100 u/ml 10 ml vial SC SCH ×2 (08:55→16:12)
[2019-02-19] MEDS: Multivitamin Vitamin B Complex (Nephro-Vite) Tab PO SCH ×2 (08:55→10:45)
--- NOTE | 2019-02-19 10:17 | PN ---
DATE: 02/18/2019 SUBJECTIVE: The patient is alert, oriented. PHYSICAL EXAMINATION: GENERAL: Her dyspnea is here. There is no chest pain. She is not in acute distress. VITAL SIGNS: Afebrile with blood pressure 132/64, pulse 71, respirations 18. HEART: Regular. There is no gallop rhythm. LUNGS: Diminished breath sounds over the lung bases, rhonchi improving. ABDOMEN: Soft. EXTREMITIES: Legs, no edema. LABORATORY DATA: Blood sugar is 289. Her chest x-ray, repeat film is a supine lordotic film with basal congestion. Upper zones are shown to be clear. There are bilateral costophrenic angle haziness. She would need a PA and chest film when she is able to have one. We will continue to follow. ASSESSMENT: Respiratory insufficiency, chronic obstructive pulmonary disease exacerbation, emphysema, end-stage renal failure. The patient is on dialysis regimen. PLAN: To continue with the current medications including dialysis, bronchodilators and vasodilators, and renal followup. Francisco Javier Guaman MD
--- NOTE | 2019-02-19 10:40 | CP.PCM.CON ---
History of Present Illness - History of Present Illness History of Present Illness: Surgery Consult Note for Dr. Mccormick Consult: Permacath replacement HPI: 83 year old female, past medical history significant for ESRD, CHF, and DM, consulted for nonfunctioning permacatheter. Patient had AV fistula revision on 11/04/18. Permacath was also exchanged at that time and functional. Staff states that current AV fistula has poor flow. Patient gets dialysis MWF. Denies f/c, n/v/d, SOB, CP, urinary symptoms, numbness/tingling, extremity pain. PMH: See above + COPD, HTN, HLD, TIA PSH: AV Fistula, permacath FH: Noncontributory SH: Denies tobacco, alcohol, or drug use ALL: NKDA Meds: See MAR Review of Systems - Constitutional Constitutional: absent: Chills, Fever, Weight Loss - EENT Eyes: absent: Blurred Vision, Change in Vision Nose/Mouth/Throat: absent: Nasal Congestion, Nasal Discharge - Cardiovascular Cardiovascular: absent: Chest Pain, Dyspnea - Respiratory Respiratory: absent: Cough, Dyspnea - Gastrointestinal Gastrointestinal: absent: Abdominal Pain, Nausea, Vomiting - Genitourinary Genitourinary: absent: Difficulty Urinating, Dysuria - Musculoskeletal Musculoskeletal: absent: Back Pain, Neck Pain - Integumentary Integumentary: absent: Changing Lesions, New Lesions - Neurological Neurological: absent: Confusion, Numbness - Psychiatric Psychiatric: absent: Anxiety, Depression Past Patient History - Infectious Disease Hx of Infectious Diseases: None - Tetanus Immunizations Tetanus Immunization: Unknown, Up to Date - Past Medical History & Family History Past Medical History?: Yes - Past Social History Smoking Status: Never Smoked Chewing Tobacco Use: No Cigar Use: No Alcohol: None Drugs: Denies - CARDIAC Hx Cardia Arrhythmia: Yes Hx Congestive Heart Failure: Yes Hx Hypercholesterolemia: Yes Hx Hypertension: Yes - PULMONARY Hx Asthma: Yes Hx Bronchitis: Yes Hx Chronic Obstructive Pulmonary Disease (COPD): Yes Hx Emphysema: Yes - NEUROLOGICAL Hx Dementia: Yes Hx Migraine: Yes Hx Transient Ischemic Attacks (TIA): Yes - HEENT Hx HEENT Problems: Yes Hx Blind: Yes (Left eye.) - RENAL Hx Chronic Kidney Disease: Yes - ENDOCRINE/METABOLIC Hx Diabetes Mellitus Type 2: Yes - INTEGUMENTARY Hx Dermatological Problems: Yes Hx Cellulitis: Yes Hx Eczema: Yes - MUSCULOSKELETAL/RHEUMATOLOGICAL Hx Arthritis: Yes Hx Fractures: Yes - GASTROINTESTINAL Hx Gastrointestinal Disorders: Yes Hx Gastroesophageal Reflux: Yes Hx Hemorrhoids: Yes - GENITOURINARY/GYNECOLOGICAL Hx Genitourinary Disorders: Yes Hx Urinary Tract Infection: Yes Other/Comment: Rt. AVF - PSYCHIATRIC Hx Anxiety: Yes Hx Depression: Yes Hx Substance Use: No - SURGICAL HISTORY Hx Surgeries: Yes Hx Arteriovenous Shunt: Yes (right arm) - ANESTHESIA Hx Anesthesia: Yes Hx Anesthesia Reactions: No Hx Malignant Hyperthermia: No Has any member of the family had a problem w/ anesthesia?: No Meds Allergies/Adverse Reactions: Allergies Allergy/AdvReac Type Severity Reaction Status Date / Time No Known Allergies Allergy Verified 02/16/19 04:52 - Medications Medications: Current Medications Albuterol/Ipratropium (Duoneb 3 Mg/0.5 Mg (3 Ml) Ud) 3 ml INH RQ8 [facility] Last Admin: 02/19/19 07:54 Dose: 3 ml Aspirin (Aspirin Chewable) 81 mg PO DAILY [facility] Last Admin: 02/18/19 09:35 Dose: 81 mg Atenolol (Tenormin) 50 mg PO DAILY [facility] Last Admin: 02/17/19 09:19 Dose: 50 mg Clopidogrel Bisulfate (Plavix) 75 mg PO DAILY [facility] Last Admin: 02/18/19 09:35 Dose: 75 mg Donepezil HCl (Aricept) 10 mg PO HS [facility] Last Admin: 02/18/19 22:23 Dose: 10 mg Enalapril Maleate (Vasotec) 10 mg PO DAILY [facility] Last Admin: 02/17/19 09:19 Dose: 10 mg Ergocalciferol (Drisdol 50,000 Intl Units Cap) 1 cap PO Q7D [facility] Last Admin: 02/17/19 19:53 Dose: 1 cap Famotidine (Pepcid) 20 mg PO DAILY [facility] Last Admin: 02/18/19 09:35 Dose: 20 mg Gabapentin (Neurontin) 100 mg PO DAILY [facility] Last Admin: 02/18/19 09:35 Dose: 100 mg Heparin Sodium (Porcine) (Heparin) 5,000 units SC Q12 [facility] Last Admin: 02/18/19 22:23 Dose: 5,000 units Hydralazine HCl (Apresoline) 25 mg PO TID [facility] Last Admin: 02/18/19 17:11 Dose: 25 mg Insulin Aspart (Novolog) 14 unit SC BIDAC [facility] Last Admin: 02/18/19 16:42 Dose: Not Given Insulin Human Regular (Novolin R) 0 unit SC ACHS [facility]; Protocol Last Admin: 02/18/19 21:49 Dose: Not Given Montelukast Sodium (Singulair) 10 mg PO DAILY [facility] Last Admin: 02/18/19 09:35 Dose: 10 mg Oxybutynin Chloride (Ditropan Xl) 5 mg PO DAILY [facility] Last Admin: 02/18/19 09:35 Dose: 5 mg Quetiapine Fumarate (Seroquel) 25 mg PO DAILY [facility] Last Admin: 02/18/19 09:35 Dose: 25 mg Rosuvastatin Calcium (Crestor) 5 mg PO HS [facility] Last Admin: 02/18/19 22:23 Dose: 5 mg Sevelamer Carbonate (Renvela) 800 mg PO TIDCC [facility] Last Admin: 02/18/19 17:11 Dose: 800 mg Sitagliptin Phosphate (Januvia) 25 mg PO DAILY [facility] Last Admin: 02/18/19 09:35 Dose: 25 mg Vitamin B Complex/Vit C/Folic Acid (Nephro-Marina) 1 tab PO 0800 [facility] Last Admin: 02/18/19 08:06 Dose: 1 tab Vitamin B Complex/Vit C/Folic Acid (Nephro-Marina) 1 tab PO DAILY [facility] Last Admin: 02/18/19 09:40 Dose: Not Given Physical Exam - Constitutional Appears: Well, Non-toxic, No Acute Distress - Head Exam Head Exam: ATRAUMATIC, NORMAL INSPECTION, NORMOCEPHALIC - Eye Exam Eye Exam: EOMI Pupil Exam: PERRL - ENT Exam ENT Exam: Mucous Membranes Moist - Respiratory Exam Respiratory Exam: NORMAL BREATHING PATTERN. absent: Wheezes, Respiratory Distress - Cardiovascular Exam Cardiovascular Exam: REGULAR RHYTHM - GI/Abdominal Exam GI & Abdominal Exam: Normal Bowel Sounds, Soft. absent: Tenderness - Extremities Exam Additional comments: right arm AV fistula - palpapble thrill, audible bruit examined on ultrasound - serpiginous but fully patent and appears well matured - Neurological Exam Neurological exam: Alert, Oriented x3 - Psychiatric Exam Psychiatric exam: Normal Affect, Normal Mood - Skin Skin Exam: Dry, Intact, Normal Color, Warm Results - Vital Signs Recent Vital Signs: Last Vital Signs Temp 98.4 F 02/19/19 07:00 Pulse 79 02/19/19 08:22 Resp 20 02/19/19 07:00 BP 158/74 H 02/19/19 07:00 Pulse Ox 96 02/19/19 07:00 - Labs Result Diagrams: 02/17/19 06:38 02/17/19 06:38 Labs: Laboratory Results - last 24 hr 02/18/19 02/18/19 02/18/19 11:06 16:15 21:28 POC Glucose (mg/dL) 289 H 83 154 H 02/19/19 06:21 POC Glucose (mg/dL) 346 H Assessment & Plan - Assessment and Plan (Free Text) Assessment: 83F w/ nonfunctioning permacatheter and AVF w/ poor flow Plan: Will reevaluate current AVF with US - AVF appears patent Patient arm marked where AVF tracks to aid with dialysis for 02/20 If unable to get access, will exchange permacath in [place] 02/20 D/w Dr. Anny Sorto PGY1
--- NOTE | 2019-02-19 20:45 | PN ---
DATE: 02/20/2019 SUBJECTIVE: The patient is alert and oriented, is comfortable, in bed, in no acute distress. PHYSICAL EXAMINATION: GENERAL: She is not in acute distress. VITAL SIGNS: Afebrile. Her blood pressure is 149/82, pulse 79, respirations 20, hemoglobin-oxygen saturation is 96% on room air. HEART: Regular. There is no gallop rhythm. LUNGS: Diminished breath sounds over the lung bases. Rhonchi decreased. ABDOMEN: Soft. EXTREMITIES: Legs, no edema. LABORATORY DATA: Blood sugar 346. IMPRESSION: Respiratory insufficiency, chronic obstructive pulmonary disease exacerbation, hypertensive cardiovascular disease, coronary artery disease, congestive heart failure, arthritis, end-stage renal failure. PLAN: To continue the current medications including bronchodilators and vasodilators along with dialysis and renal followup. Francisco Javier Guaman MD
--- NOTE | 2019-02-19 22:21 | CP.PCM.PN ---
Subjective - Date & Time of Evaluation Date of Evaluation: 02/19/19 Time of Evaluation: 19:05 - Subjective Subjective: patient is alert and responsive. She denies any chest pain or discomfort. Patient has enlarged thyroid gland. We will request thyroid ultrasound. Patient has poor flow in dialysis access site. EKG requested in order to provide surgical clearance. Objective - Vital Signs/Intake and Output Vital Signs (last 24 hours): Temp Pulse Resp BP Pulse Ox 98.3 F 70 20 130/64 97 02/19/19 15:00 02/19/19 15:00 02/19/19 15:00 02/19/19 15:00 02/19/19 15:00 - Medications Medications: Current Medications Albuterol/Ipratropium (Duoneb 3 Mg/0.5 Mg (3 Ml) Ud) 3 ml INH RQ8 [facility] Last Admin: 02/19/19 16:38 Dose: 3 ml Aspirin (Aspirin Chewable) 81 mg PO DAILY [facility] Last Admin: 02/19/19 10:45 Dose: 81 mg Atenolol (Tenormin) 50 mg PO DAILY [facility] Last Admin: 02/19/19 10:46 Dose: 50 mg Clopidogrel Bisulfate (Plavix) 75 mg PO DAILY [facility] Last Admin: 02/19/19 10:45 Dose: 75 mg Donepezil HCl (Aricept) 10 mg PO HS [facility] Last Admin: 02/19/19 21:04 Dose: 10 mg Enalapril Maleate (Vasotec) 10 mg PO DAILY [facility] Last Admin: 02/19/19 10:46 Dose: 10 mg Ergocalciferol (Drisdol 50,000 Intl Units Cap) 1 cap PO Q7D [facility] Last Admin: 02/17/19 19:53 Dose: 1 cap Famotidine (Pepcid) 20 mg PO DAILY [facility] Last Admin: 02/19/19 10:46 Dose: 20 mg Gabapentin (Neurontin) 100 mg PO DAILY [facility] Last Admin: 02/18/19 09:35 Dose: 100 mg Heparin Sodium (Porcine) (Heparin) 5,000 units SC Q12 [facility] Last Admin: 02/19/19 21:04 Dose: 5,000 units Hydralazine HCl (Apresoline) 25 mg PO TID [facility] Last Admin: 02/19/19 17:02 Dose: 25 mg Insulin Aspart (Novolog) 14 unit SC BIDAC [facility] Last Admin: 02/19/19 16:12 Dose: Not Given Insulin Human Regular (Novolin R) 0 unit SC ACHS [facility]; Protocol Last Admin: 02/19/19 21:01 Dose: Not Given Montelukast Sodium (Singulair) 10 mg PO DAILY [facility] Last Admin: 02/19/19 10:45 Dose: 10 mg Oxybutynin Chloride (Ditropan Xl) 5 mg PO DAILY [facility] Last Admin: 02/19/19 10:46 Dose: 5 mg Quetiapine Fumarate (Seroquel) 25 mg PO DAILY [facility] Last Admin: 02/19/19 10:46 Dose: 25 mg Rosuvastatin Calcium (Crestor) 5 mg PO HS [facility] Last Admin: 02/19/19 21:04 Dose: 5 mg Sevelamer Carbonate (Renvela) 800 mg PO TIDCC [facility] Last Admin: 02/19/19 17:02 Dose: 800 mg Sitagliptin Phosphate (Januvia) 25 mg PO DAILY [facility] Last Admin: 02/19/19 10:45 Dose: 25 mg Vitamin B Complex/Vit C/Folic Acid (Nephro-Marina) 1 tab PO 0800 [facility] Last Admin: 02/19/19 08:55 Dose: 1 tab Vitamin B Complex/Vit C/Folic Acid (Nephro-Marina) 1 tab PO DAILY [facility] Last Admin: 02/19/19 10:45 Dose: Not Given - Labs Labs: 02/17/19 06:38 02/17/19 06:38 PT 12.6 SECONDS (9.7-12.2) H 02/16/19 05:18 INR 1.2 02/16/19 05:18 APTT 36.4 SECONDS (21-34) H 02/16/19 05:18 - Constitutional Appears: Chronically Ill - Head Exam Head Exam: NORMOCEPHALIC - Eye Exam Eye Exam: Normal appearance Pupil Exam: NORMAL ACCOMODATION - ENT Exam ENT Exam: Normal Exam - Neck Exam Neck Exam: Normal Inspection - Respiratory Exam Respiratory Exam: Decreased Breath Sounds - Cardiovascular Exam Cardiovascular Exam: REGULAR RHYTHM - GI/Abdominal Exam GI & Abdominal Exam: Normal Bowel Sounds - Extremities Exam Extremities Exam: Normal Inspection - Back Exam Back Exam: NORMAL INSPECTION - Neurological Exam Neurological Exam: Oriented x3 - Psychiatric Exam Psychiatric exam: Depressed - Skin Skin Exam: Dry Assessment and Plan (1) Diverticulosis Status: Acute (2) Elevated troponin Status: Acute (3) Hyperglycemia Status: Acute (4) Chronic kidney disease with end stage renal failure on dialysis Status: Chronic
[2019-02-20] MEDS: Albuterol-Ipratrop 3 mg / 0.5 (3 ml) UD INH SCH ×3 (01:58→20:50)
[2019-02-20] MEDS: (Novolog) Insulin Aspart, Recombinant 100 u/ml 10 ml vial SC SCH ×2 (07:30→20:33)
[2019-02-20] MEDS: (Novolin R) Insulin Human Regular 100 units/ml vial SC SCH ×4 (07:30→22:19)
[2019-02-20 09:32] LABS: BASO # 0.1 K/uL (0.0-0.2); BASO % 0.8 % (0.0-2.0); EOS # 0.2 K/uL (0.0-0.7); EOS % 3.3 % (0.0-4.0); HEMOGLOBIN 10.2 g/dL (11.0-16.0); LYMPH # 1.4 K/uL (1.0-4.3); LYMPH % 20.2 % (20.0-40.0); MEAN CELL VOLUME 80.7 fL (81.0-99.0); MEAN CORPUSCULAR HEMOGLOBIN 25.6 pg (27.0-31.0); MEAN CORPUSCULAR HGB CONC 31.8 g/dL (33.0-37.0); MEAN PLATELET VOLUME 9.5 fL (7.2-11.7); MONO # 1.1 K/uL (0.0-0.8); MONO % 16.1 % (0.0-10.0); NEUT % 59.6 % (50.0-75.0); NRBC % 0.1 % (0.0-2.0); RBC 3.98 Mil/uL (3.80-5.20); RED CELL DISTRIBUTION WIDTH 20.5 % (11.5-14.5); WHITE BLOOD COUNT 6.7 K/uL (4.8-10.8)
[2019-02-20 09:40] LABS: PARTIAL THROMBOPLASTIN TIME 34.9 SECONDS (21-34); PROTHROMBIN TIME 10.9 SECONDS (9.7-12.2)
[2019-02-20 09:51] LABS: ALB/GLOB RATIO 1.3 (1.0-2.1); ALBUMIN 3.7 g/dL (3.5-5.0); CALCIUM 9.7 mg/dl (8.6-10.4)
[2019-02-20] MEDS: Multivitamin Vitamin B Complex (Nephro-Vite) Tab PO SCH ×3 (10:41→12:44)
--- NOTE | 2019-02-20 13:12 | CP.PCM.PN ---
Subjective - Date & Time of Evaluation Date of Evaluation: 02/20/19 Time of Evaluation: 13:11 - Subjective Subjective: RIGHT ARM FISTULA MARKED ON SKIN YESTERDAY AND USED SUCCESSFULLY FOR hd WILL REMOVE PERMACATH IF NO FURTHER ISSUES WITH USE OF AVF Objective - Vital Signs/Intake and Output Vital Signs (last 24 hours): Temp Pulse Resp BP Pulse Ox 97.3 F L 70 17 168/64 H 97 02/20/19 09:00 02/20/19 09:00 02/20/19 09:00 02/20/19 12:45 02/20/19 09:00 - Medications Medications: Current Medications Albuterol/Ipratropium (Duoneb 3 Mg/0.5 Mg (3 Ml) Ud) 3 ml INH RQ8 [facility] Last Admin: 02/20/19 07:49 Dose: 3 ml Aspirin (Aspirin Chewable) 81 mg PO DAILY [facility] Last Admin: 02/20/19 10:40 Dose: Not Given Atenolol (Tenormin) 50 mg PO DAILY [facility] Last Admin: 02/20/19 12:43 Dose: 50 mg Clopidogrel Bisulfate (Plavix) 75 mg PO DAILY [facility] Last Admin: 02/20/19 12:43 Dose: 75 mg Donepezil HCl (Aricept) 10 mg PO HS [facility] Last Admin: 02/19/19 21:04 Dose: 10 mg Enalapril Maleate (Vasotec) 10 mg PO DAILY [facility] Last Admin: 02/20/19 12:45 Dose: 10 mg Ergocalciferol (Drisdol 50,000 Intl Units Cap) 1 cap PO Q7D [facility] Last Admin: 02/17/19 19:53 Dose: 1 cap Famotidine (Pepcid) 20 mg PO DAILY [facility] Last Admin: 02/20/19 12:44 Dose: 20 mg Gabapentin (Neurontin) 100 mg PO DAILY [facility] Last Admin: 02/20/19 12:44 Dose: 100 mg Heparin Sodium (Porcine) (Heparin) 5,000 units SC Q12 [facility] Last Admin: 02/19/19 21:04 Dose: 5,000 units Hydralazine HCl (Apresoline) 25 mg PO TID [facility] Last Admin: 02/20/19 10:40 Dose: Not Given Insulin Aspart (Novolog) 14 unit SC BIDAC [facility] Last Admin: 02/20/19 07:30 Dose: Not Given Insulin Human Regular (Novolin R) 0 unit SC ACHS [facility]; Protocol Last Admin: 02/20/19 12:25 Dose: 1 unit Montelukast Sodium (Singulair) 10 mg PO DAILY [facility] Last Admin: 02/20/19 12:45 Dose: 10 mg Oxybutynin Chloride (Ditropan Xl) 5 mg PO DAILY [facility] Last Admin: 02/20/19 10:40 Dose: Not Given Quetiapine Fumarate (Seroquel) 25 mg PO DAILY [facility] Last Admin: 02/20/19 12:43 Dose: 25 mg Rosuvastatin Calcium (Crestor) 5 mg PO HS [facility] Last Admin: 02/19/19 21:04 Dose: 5 mg Sevelamer Carbonate (Renvela) 800 mg PO TIDCC [facility] Last Admin: 02/20/19 12:44 Dose: 800 mg Sitagliptin Phosphate (Januvia) 25 mg PO DAILY [facility] Last Admin: 02/20/19 12:44 Dose: 25 mg Vitamin B Complex/Vit C/Folic Acid (Nephro-Marina) 1 tab PO 0800 [facility] Last Admin: 02/20/19 10:41 Dose: Not Given Vitamin B Complex/Vit C/Folic Acid (Nephro-Marina) 1 tab PO DAILY [facility] Last Admin: 02/20/19 12:44 Dose: 1 tab - Labs Labs: 02/20/19 09:29 02/20/19 09:29 PT 10.9 SECONDS (9.7-12.2) 02/20/19 09:29 INR 1.0 02/20/19 09:29 APTT 34.9 SECONDS (21-34) H 02/20/19 09:29
--- NOTE | 2019-02-20 17:59 | PN ---
DATE: 02/20/2019 SUBJECTIVE: The patient is alert, oriented. PHYSICAL EXAMINATION: GENERAL: She is not in acute distress. VITAL SIGNS: Afebrile, blood pressure 160/64. HEART: Regular. There is no gallop rhythm. LUNGS: Diminished breath sounds. Rhonchi improved. ABDOMEN: Soft. EXTREMITIES: Legs, no edema. She had hemodialysis this morning. LABORATORY DATA: White count 6700, hemoglobin 10.2, platelet count 181,000. BUN is 54, creatinine 5.8. Blood glucose 182. Magnesium 2.2. Chest x-ray shows patchy area in the right lower lobe area. No significant pleural disease. No pneumothorax. IMPRESSION: Respiratory insufficiency, congestive heart failure, hypertensive cardiovascular disease, coronary artery disease, arthritis, chronic renal disease, end-stage renal disease; the patient is on dialysis regimen. PLAN: To continue with current medications including bronchodilators and vasodilators and occasional dose of Lasix to relieve the basal congestion from hypertensive cardiovascular disease and x-ray showing congestive changes. Francisco Javier Guaman MD
--- NOTE | 2019-02-20 18:33 | US ---
Date of service: 02/20/2019 HISTORY: enlarged thyroid TECHNIQUE: Sonographic evaluation of the thyroid gland. COMPARISON: 06/08/2015. Thyroid ultrasound FINDINGS: RIGHT LOBE: Measures 3 x 3.1 x 5.7 cm. Heterogeneous echo characteristics. Nodules: 1. Complex primarily solid nodule upper pole with small cystic areas 1.9 x 2.5 x 2.5 cm. This nodule has increased in size/complex [place] compared to the prior study. 2. Solid isoechoic nodule with calcified rim upper pole 6 x 6 x 6 mm. 3. Partially cystic nodule upper pole 5 x 8 x 9 mm. 4. Solid well-circumscribed hypoechoic nodule mid-lower pole 1.8 x 3.2 x 3.3 cm. Stable compared to the prior study. LEFT LOBE: Measures 2.2 x 1.7 x 5 cm. Heterogenous echotexture, normal vascularity Nodules: 1. Solid nodule upper pole 8 x 10 x 11 mm. 2. Cystic nodule midpole 8 x 7 x 10 mm. 3. Complex primarily cystic nodule with echogenic foci/colloid 6 x 8 x 8 mm. ISTHMUS: Measures 3.5 mm. Normal echotexture and flow. Nodules: None OTHER FINDINGS: None . IMPRESSION: 1. Enlarged heterogeneous and hypervascular gland bilaterally. 2. Multiple (7) bilateral thyroid nodules. 3. Increase in size/complexity of the upper pole nodule in the right lobe. Recommendations for follow-up: 1. Radionuclide Scan to assess Thyroid function and to evaluate the thyroid for the presence of hot or cold nodules. 2. Fine needle aspiration (FNA) should also be considered as an invasive diagnostic tool in the assessment of findings described above.
--- NOTE | 2019-02-20 22:22 | CP.PCM.PN ---
Subjective - Date & Time of Evaluation Date of Evaluation: 02/20/19 Time of Evaluation: 19:10 - Subjective Subjective: patient is sleeping. She was evaluated by Dr. Mccormick and underwent dialysis without any difficulties. no severe spikes in blood sugar level. Patient denies any chest pain or discomfort Objective - Vital Signs/Intake and Output Vital Signs (last 24 hours): Temp Pulse Resp BP Pulse Ox 99.3 F 75 20 126/54 L 95 02/20/19 15:00 02/20/19 15:00 02/20/19 15:00 02/20/19 15:00 02/20/19 15:00 - Medications Medications: Current Medications Albuterol/Ipratropium (Duoneb 3 Mg/0.5 Mg (3 Ml) Ud) 3 ml INH RQ8 [facility] Last Admin: 02/20/19 20:50 Dose: 3 ml Aspirin (Aspirin Chewable) 81 mg PO DAILY [facility] Last Admin: 02/20/19 13:18 Dose: 81 mg Atenolol (Tenormin) 50 mg PO DAILY [facility] Last Admin: 02/20/19 12:43 Dose: 50 mg Clopidogrel Bisulfate (Plavix) 75 mg PO DAILY [facility] Last Admin: 02/20/19 12:43 Dose: 75 mg Donepezil HCl (Aricept) 10 mg PO HS [facility] Last Admin: 02/20/19 22:16 Dose: 10 mg Enalapril Maleate (Vasotec) 10 mg PO DAILY [facility] Last Admin: 02/20/19 12:45 Dose: 10 mg Ergocalciferol (Drisdol 50,000 Intl Units Cap) 1 cap PO Q7D [facility] Last Admin: 02/17/19 19:53 Dose: 1 cap Famotidine (Pepcid) 20 mg PO DAILY [facility] Last Admin: 02/20/19 12:44 Dose: 20 mg Gabapentin (Neurontin) 100 mg PO DAILY [facility] Last Admin: 02/20/19 12:44 Dose: 100 mg Heparin Sodium (Porcine) (Heparin) 5,000 units SC Q12 [facility] Last Admin: 02/19/19 21:04 Dose: 5,000 units Hydralazine HCl (Apresoline) 25 mg PO TID [facility] Last Admin: 02/20/19 13:17 Dose: 25 mg Insulin Aspart (Novolog) 14 unit SC BIDAC [facility] Last Admin: 02/20/19 20:33 Dose: 14 u Insulin Human Regular (Novolin R) 0 unit SC [facility]; Protocol Last Admin: 02/20/19 20:32 Dose: 6 unit Montelukast Sodium (Singulair) 10 mg PO DAILY [facility] Last Admin: 02/20/19 12:45 Dose: 10 mg Oxybutynin Chloride (Ditropan Xl) 5 mg PO DAILY [facility] Last Admin: 02/20/19 10:40 Dose: Not Given Quetiapine Fumarate (Seroquel) 25 mg PO DAILY [facility] Last Admin: 02/20/19 12:43 Dose: 25 mg Rosuvastatin Calcium (Crestor) 5 mg PO HS [facility] Last Admin: 02/20/19 22:16 Dose: 5 mg Sevelamer Carbonate (Renvela) 800 mg PO TIDCC [facility] Last Admin: 02/20/19 12:44 Dose: 800 mg Sitagliptin Phosphate (Januvia) 25 mg PO DAILY [facility] Last Admin: 02/20/19 12:44 Dose: 25 mg Vitamin B Complex/Vit C/Folic Acid (Nephro-Marina) 1 tab PO DAILY [facility] Last Admin: 02/20/19 12:44 Dose: 1 tab - Labs Labs: 02/20/19 09:29 02/20/19 09:29 PT 10.9 SECONDS (9.7-12.2) 02/20/19 09:29 INR 1.0 02/20/19 09:29 APTT 34.9 SECONDS (21-34) H 02/20/19 09:29 - Constitutional Appears: Chronically Ill - Head Exam Head Exam: NORMOCEPHALIC - Eye Exam Eye Exam: Normal appearance Pupil Exam: NORMAL ACCOMODATION - ENT Exam ENT Exam: Normal Exam - Neck Exam Neck Exam: Normal Inspection - Respiratory Exam Respiratory Exam: NORMAL BREATHING PATTERN - Cardiovascular Exam Cardiovascular Exam: REGULAR RHYTHM - GI/Abdominal Exam GI & Abdominal Exam: Normal Bowel Sounds - Extremities Exam Extremities Exam: Tenderness - Back Exam Back Exam: NORMAL INSPECTION - Neurological Exam Neurological Exam: Reflexes Normal - Psychiatric Exam Psychiatric exam: Depressed - Skin Skin Exam: Dry Assessment and Plan (1) Diverticulosis Status: Acute (2) Elevated troponin Status: Acute (3) Hyperglycemia Status: Acute (4) Chronic kidney disease with end stage renal failure on dialysis Status: Chronic (5) ASHD (arteriosclerotic heart disease) Status: Acute (6) Diabetes mellitus Status: Acute
[2019-02-21] MEDS: Albuterol-Ipratrop 3 mg / 0.5 (3 ml) UD INH SCH ×2 (01:52→09:08)
[2019-02-21] MEDS ORDERED: Dextrose 50% SYRINGE Inj (50 ml) IV STA ×2 (02:07→21:39)
[2019-02-21] MEDS: (Novolin R) Insulin Human Regular 100 units/ml vial SC SCH ×3 (08:00→17:39)
[2019-02-21] MEDS: (Novolog) Insulin Aspart, Recombinant 100 u/ml 10 ml vial SC SCH ×3 (08:46→21:34)
[2019-02-21] MEDS ORDERED: (Novolog) Insulin Aspart, Recombinant 100 u/ml 10 ml vial SC ONE (09:00)
[2019-02-21] MEDS: Multivitamin Vitamin B Complex (Nephro-Vite) Tab PO SCH (09:01)
[2019-02-21] MEDS ORDERED: Dextrose 50% SYRINGE Inj (50 ml) IV PRN (21:39)
[2019-02-21] MEDS ORDERED: Glucagon Recombinant 1 mg Inj IM PRN (21:39)
[2019-02-21] MEDS ORDERED: (Lantus) Insulin Glargine, Recombinant SC SCH (22:00)
--- NOTE | 2019-02-22 05:03 | CON ---
DATE: 02/21/2019 ENDOCRINOLOGY CONSULT LOCATION: Room 562. HISTORY OF PRESENT ILLNESS: This is an 83-year-old female with known history of type 2 insulin-requiring diabetes, presenting here with sudden onset of diffuse upper abdominal pain with progressive shortness of breath and generalized body weakness and is now being referred for diabetic evaluation because of extremes of glycemic fluctuations with glucose levels ranging from 35 to over 300 mg/dL. PAST MEDICAL HISTORY: As mentioned above, history of type 2 insulin requiring diabetes on a combination of Tradjenta given as 5 mg daily with NovoLog given as 14 units twice a day and p.r.n. use of Lantus therapy as noted. History of hypertension and dyslipidemia, history of diabetic retinopathy with impaired visual activity and diabetic polyneuropathy with diabetic nephropathy and end-stage renal disease and dialysis dependence, history of previous TIA with no residual weakness and also known history of coronary artery disease with previous admissions for congestive heart failure, history of peripheral arterial disease, and vasculopathy. History of generalized anxiety and depression, on anxiolytic medications. History of early senile dementia with lapses of progressiveness and cognitive changes. FAMILY HISTORY: Positive for diabetes, hypertension. REVIEW OF SYSTEMS: Admits to generalized body weakness with episodic bouts of dizziness and lightheadedness, worse on the day of admission. Also admits to right frontal headaches with visual blurriness noted. No chest pains but admits to progressive shortness of breath, initially on exertion and then at rest. Her oral intake has been variable with nausea, dyspepsia, and sudden onset of upper abdominal pain with habitual constipation. PHYSICAL EXAMINATION: GENERAL: This is an average-built female in no apparent distress. VITAL SIGNS: Blood pressure of 150/90, pulse of 100 beats per minute and regular, temperature 98, respirations 20. Height is 5 feet 3 inches. Weight is 130 pounds. HEENT: Head; normocephalic. Eyes; anicteric with pink conjunctivae. Funduscopy not possible at this time. Ears, nose, and throat, otherwise, normal. NECK: Supple. Thyroid gland is normal size. No carotid bruits or cervical adenopathy. CARDIOPULMONARY: Some adynamic precordium. S1 and S2. Rapid and regular. LUNGS: Clear to auscultation. ABDOMEN: Flat, soft with positive bowel sounds. EXTREMITIES: No pitting edema, pulses are +2 bilaterally. LABORATORY DATA: Her glucose values have ranged from 35 to 204 and 323 mg/dL today. Her latest chemistries BUN of 54, sodium 133, potassium 4.3, chloride 98, CO2 of 23, glucose 282, and creatinine 5.8. Her initial glucose actually was 672 on admission as noted with a pro-BNP of 800. ASSESSMENT: This is an 83-year-old female with uncontrolled and decompensated type 2 insulin-requiring diabetes with extremes of glycemic fluctuations related to subtherapeutic insulin regimen with concomitant variable oral intake and suboptimal meal portions as noted thereof. She also has diabetic microvascular complications of retinopathy, polyneuropathy, and nephropathy with end-stage renal disease and dialysis dependence. Moreover, she also has macrovascular complications of cerebrovascular disease with a prior transient ischemia events and known history of coronary artery disease with peripheral arterial disease and vasculopathy. PLAN OF MANAGEMENT: We will modify her current insulin regimen to help optimize her metabolic control and because of the extremes of glycemic fluctuations and variability of her oral intake, we will start her on much lower dosing regimen as ordered. We will start with NovoLog given as 4 units t.i.d. before meals to start tomorrow morning as ordered. We will add basal insulin given as Lantus at 10 units subcutaneous at bedtime daily to start tonight. We will modify, however, her correction scale using a very low-dose algorithm with NovoLog insulin as ordered to obviate hypoglycemia. Her hemoglobin A1c will be done to confirm her prior glycemic control and baseline thyroid function studies and lipid panel will be ordered. We will obtain serial chemistries and supplement accordingly as needed. We will follow. Bella Gold MD
[2019-02-22] MEDS: (Novolog) Insulin Aspart, Recombinant 100 u/ml 10 ml vial SC SCH ×6 (07:27→22:00)
[2019-02-22] MEDS ORDERED: (Novolog) Insulin Aspart, Recombinant 100 u/ml 10 ml vial SC SCH (07:30)
[2019-02-22 07:33] LABS: HEMOGLOBIN 10.1 g/dL (11.0-16.0); MEAN CORPUSCULAR HEMOGLOBIN 26.5 pg (27.0-31.0); MEAN CORPUSCULAR HGB CONC 32.7 g/dL (33.0-37.0); MEAN PLATELET VOLUME 9.4 fL (7.2-11.7); RBC 3.82 Mil/uL (3.80-5.20); WHITE BLOOD COUNT 6.6 K/uL (4.8-10.8)
[2019-02-22 07:59] LABS: ALB/GLOB RATIO 1.3 (1.0-2.1); ALBUMIN 3.3 g/dL (3.5-5.0); ALT/SGPT 37 U/L (9-52); AST/SGOT 27 U/L (14-36); BLOOD UREA NITROGEN 62 mg/dL (7-17); CALCIUM 9.2 mg/dl (8.6-10.4); GFR NON-AFRICAN AMERICAN 6; HDL CHOLESTEROL 61 mg/dL (30-70)
[2019-02-22 08:06] LABS: LDL CHOLESTEROL 36 mg/dL (0-129)
[2019-02-22] MEDS: Multivitamin Vitamin B Complex (Nephro-Vite) Tab PO SCH (09:49)
--- NOTE | 2019-02-22 14:56 | PN ---
DATE: 02/22/2019 LOCATION: Room 559. SUBJECTIVE: This is an 83-year-old female with recent uncontrolled type 2 insulin-requiring diabetes with marked hyperglycemic accelerations and even extremes of glycemic fluctuations related to the variability of her oral intake and is now being followed closely for metabolic management. Her glycemic levels are fluctuating as noted overnight and the glucose values range from 211 to 220 mg/dL. LABORATORY DATA: Her chemistry showed a BUN of 62, sodium 133, potassium 4.1, chloride 96, CO2 of 25, glucose 211, and creatinine 7. Hemoglobin A1c is 11.3% which is quite elevated and indicative of suboptimal metabolic control with dietary condition even prior to this admission. TSH is less than 0.02 as noted. ASSESSMENT: This is an 83-year-old female with recent uncontrolled type 2 insulin-requiring diabetes presenting here with marked hyperglycemic accelerations and supervening symptomatic hypoglycemia related to the variability of her oral intact and also the subtherapeutic insulin regimen as given. She also has diabetic microvascular complications of retinopathy, polyneuropathy and nephropathy with end-stage renal disease on dialysis dependence. She also has diabetic macrovascular complications of coronary artery disease, peripheral arterial disease and vasculopathy and a previous transient ischemic event with underlying cerebrovascular disease as noted. PLAN OF MANAGEMENT: We will modify her current basal and bolus insulin regimen on the very prudent and slow bases to optimize metabolic control and also to prevent extremes of glycemic fluctuance thereof. We will increase her Novolog to 6 units t.i.d. before meals to start today as ordered. We will also increase her basal insulin with Lantus to 14 units subcu at bedtime daily as given. We will obtain serial chemistries and supplement accordingly as needed. We will also continue the dual oral hypoglycemic drug therapy as ordered with Januvia at 25 mg daily and Prandin at 2 mg t.i.d. before meals as ordered. We will obtain serial chemistries accordingly. Bella Gold MD
--- NOTE | 2019-02-22 19:41 | CP.PCM.PN ---
Subjective - Date & Time of Evaluation Date of Evaluation: 02/21/19 Time of Evaluation: 17:15 - Subjective Subjective: patient has a revised access site. Patient had a hypoglycemic episode. She was only given half of her regular insulin dose. patient is mildly letharg but responsive. Repeat labs ordered for a.m. Objective - Vital Signs/Intake and Output Vital Signs (last 24 hours): Temp Pulse Resp BP Pulse Ox 98.4 F 63 20 110/60 96 02/22/19 16:57 02/22/19 16:57 02/22/19 16:57 02/22/19 18:03 02/22/19 16:57 Intake and Output: 02/22/19 02/23/19 18:59 06:59 Intake Total 640 Balance 640 - Medications Medications: Current Medications Aspirin (Aspirin Chewable) 81 mg PO DAILY [facility] Last Admin: 02/22/19 09:50 Dose: 81 mg Atenolol (Tenormin) 50 mg PO DAILY [facility] Last Admin: 02/22/19 09:51 Dose: 50 mg Clopidogrel Bisulfate (Plavix) 75 mg PO DAILY [facility] Last Admin: 02/22/19 09:50 Dose: 75 mg Dextrose (Dextrose 50% Inj) 0 ml IV STAT PRN; Protocol PRN Reason: Hypoglycemia Protocol Dextrose (Glutose 15) 0 gm PO ONCE PRN; Protocol PRN Reason: Hypoglycemia Protocol Donepezil HCl (Aricept) 10 mg PO HS [facility] Last Admin: 02/21/19 21:41 Dose: 10 mg Enalapril Maleate (Vasotec) 10 mg PO DAILY [facility] Last Admin: 02/22/19 14:00 Dose: Not Given Ergocalciferol (Drisdol 50,000 Intl Units Cap) 1 cap PO Q7D [facility] Last Admin: 02/17/19 19:53 Dose: 1 cap Famotidine (Pepcid) 20 mg PO DAILY [facility] Last Admin: 02/22/19 09:50 Dose: 20 mg Glucagon (Glucagen Diagnostic Kit) 0 mg IM STAT PRN; Protocol PRN Reason: Hypoglycemia Protocol Heparin Sodium (Porcine) (Heparin) 5,000 units SC Q12 [facility] Last Admin: 02/19/19 21:04 Dose: 5,000 units Hydralazine HCl (Apresoline) 25 mg PO TID [facility] Last Admin: 02/22/19 18:03 Dose: 25 mg Dextrose (Dextrose 5% In Water 1000 Ml) 1,000 mls @ 0 mls/hr IV .Q0M PRN; Protocol PRN Reason: Hypoglycemia Protocol Insulin Aspart (Novolog) 0 unit SC ACHS [facility] Last Admin: 02/22/19 16:11 Dose: Not Given Insulin Aspart (Novolog) 6 unit SC AC [facility] Last Admin: 02/22/19 16:33 Dose: 6 u Insulin Glargine (Lantus) 14 unit SC [facility] Montelukast Sodium (Singulair) 10 mg PO DAILY [facility] Last Admin: 02/22/19 09:50 Dose: 10 mg Oxybutynin Chloride (Ditropan Xl) 5 mg PO DAILY [facility] Last Admin: 02/22/19 09:51 Dose: 5 mg Quetiapine Fumarate (Seroquel) 25 mg PO DAILY [facility] Last Admin: 02/22/19 09:50 Dose: 25 mg Repaglinide (Prandin) 2 mg PO ACTID [facility] Last Admin: 02/22/19 16:34 Dose: 2 mg Rosuvastatin Calcium (Crestor) 5 mg PO HS [facility] Last Admin: 02/21/19 21:41 Dose: 5 mg Sevelamer Carbonate (Renvela) 800 mg PO TIDCC [facility] Last Admin: 02/22/19 16:34 Dose: 800 mg Sitagliptin Phosphate (Januvia) 25 mg PO DAILY [facility] Last Admin: 02/22/19 09:49 Dose: 25 mg Tramadol HCl (Ultram) 50 mg PO Q6H PRN PRN Reason: Pain, moderate (4-7) Last Admin: 02/22/19 12:26 Dose: 50 mg Vitamin B Complex/Vit C/Folic Acid (Nephro-Marina) 1 tab PO DAILY [facility] Last Admin: 02/22/19 09:49 Dose: 1 tab - Labs Labs: 02/22/19 07:20 02/22/19 07:20 PT 10.9 SECONDS (9.7-12.2) 02/20/19 09:29 INR 1.0 02/20/19 09:29 APTT 34.9 SECONDS (21-34) H 02/20/19 09:29 - Constitutional Appears: Chronically Ill - Head Exam Head Exam: NORMOCEPHALIC - Eye Exam Pupil Exam: NORMAL ACCOMODATION - ENT Exam ENT Exam: Normal Exam - Neck Exam Neck Exam: Normal Inspection - Respiratory Exam Respiratory Exam: Decreased Breath Sounds - GI/Abdominal Exam GI & Abdominal Exam: Normal Bowel Sounds - Extremities Exam Extremities Exam: Tenderness - Back Exam Back Exam: NORMAL INSPECTION - Neurological Exam Neurological Exam: Awake - Psychiatric Exam Psychiatric exam: Depressed - Skin Skin Exam: Dry Assessment and Plan (1) Diverticulosis Status: Acute (2) Elevated troponin Status: Acute (3) Hyperglycemia Status: Acute (4) Chronic kidney disease with end stage renal failure on dialysis Status: Chronic (5) ASHD (arteriosclerotic heart disease) Status: Acute (6) Diabetes mellitus Status: Acute
--- NOTE | 2019-02-22 19:46 | CP.PCM.PN ---
Subjective - Date & Time of Evaluation Date of Evaluation: 02/22/19 Time of Evaluation: 16:45 - Subjective Subjective: patient complaining about pain at the new dialysis access site. It is warm to the touch. Patient's blood sugar h erratic and she had a hypoglycemic episode yesterday. Consultation with Dr. Gold roof fixer requeste. We'll a sk Dr. Mccormick to evaluate new venous access site Objective - Vital Signs/Intake and Output Vital Signs (last 24 hours): Temp Pulse Resp BP Pulse Ox 98.4 F 63 20 110/60 96 02/22/19 16:57 02/22/19 16:57 02/22/19 16:57 02/22/19 18:03 02/22/19 16:57 Intake and Output: 02/22/19 02/23/19 18:59 06:59 Intake Total 640 Balance 640 - Medications Medications: Current Medications Aspirin (Aspirin Chewable) 81 mg PO DAILY [facility] Last Admin: 02/22/19 09:50 Dose: 81 mg Atenolol (Tenormin) 50 mg PO DAILY [facility] Last Admin: 02/22/19 09:51 Dose: 50 mg Clopidogrel Bisulfate (Plavix) 75 mg PO DAILY [facility] Last Admin: 02/22/19 09:50 Dose: 75 mg Dextrose (Dextrose 50% Inj) 0 ml IV STAT PRN; Protocol PRN Reason: Hypoglycemia Protocol Dextrose (Glutose 15) 0 gm PO ONCE PRN; Protocol PRN Reason: Hypoglycemia Protocol Donepezil HCl (Aricept) 10 mg PO HS [facility] Last Admin: 02/21/19 21:41 Dose: 10 mg Enalapril Maleate (Vasotec) 10 mg PO DAILY [facility] Last Admin: 02/22/19 14:00 Dose: Not Given Ergocalciferol (Drisdol 50,000 Intl Units Cap) 1 cap PO Q7D [facility] Last Admin: 02/17/19 19:53 Dose: 1 cap Famotidine (Pepcid) 20 mg PO DAILY [facility] Last Admin: 02/22/19 09:50 Dose: 20 mg Glucagon (Glucagen Diagnostic Kit) 0 mg IM STAT PRN; Protocol PRN Reason: Hypoglycemia Protocol Heparin Sodium (Porcine) (Heparin) 5,000 units SC Q12 [facility] Last Admin: 02/19/19 21:04 Dose: 5,000 units Hydralazine HCl (Apresoline) 25 mg PO TID [facility] Last Admin: 02/22/19 18:03 Dose: 25 mg Dextrose (Dextrose 5% In Water 1000 Ml) 1,000 mls @ 0 mls/hr IV .Q0M PRN; Protocol PRN Reason: Hypoglycemia Protocol Insulin Aspart (Novolog) 0 unit SC ACHS [facility] Last Admin: 02/22/19 16:11 Dose: Not Given Insulin Aspart (Novolog) 6 unit SC AC [facility] Last Admin: 02/22/19 16:33 Dose: 6 u Insulin Glargine (Lantus) 14 unit SC HS [facility] Montelukast Sodium (Singulair) 10 mg PO DAILY [facility] Last Admin: 02/22/19 09:50 Dose: 10 mg Oxybutynin Chloride (Ditropan Xl) 5 mg PO DAILY [facility] Last Admin: 02/22/19 09:51 Dose: 5 mg Quetiapine Fumarate (Seroquel) 25 mg PO DAILY [facility] Last Admin: 02/22/19 09:50 Dose: 25 mg Repaglinide (Prandin) 2 mg PO ACTID [facility] Last Admin: 02/22/19 16:34 Dose: 2 mg Rosuvastatin Calcium (Crestor) 5 mg PO HS [facility] Last Admin: 02/21/19 21:41 Dose: 5 mg Sevelamer Carbonate (Renvela) 800 mg PO TIDCC [facility] Last Admin: 02/22/19 16:34 Dose: 800 mg Sitagliptin Phosphate (Januvia) 25 mg PO DAILY [facility] Last Admin: 02/22/19 09:49 Dose: 25 mg Tramadol HCl (Ultram) 50 mg PO Q6H PRN PRN Reason: Pain, moderate (4-7) Last Admin: 02/22/19 12:26 Dose: 50 mg Vitamin B Complex/Vit C/Folic Acid (Nephro-Marina) 1 tab PO DAILY [facility] Last Admin: 02/22/19 09:49 Dose: 1 tab - Labs Labs: 02/22/19 07:20 02/22/19 07:20 PT 10.9 SECONDS (9.7-12.2) 02/20/19 09:29 INR 1.0 02/20/19 09:29 APTT 34.9 SECONDS (21-34) H 02/20/19 09:29 - Constitutional Appears: Chronically Ill - Head Exam Head Exam: NORMOCEPHALIC - Eye Exam Pupil Exam: NORMAL ACCOMODATION - ENT Exam ENT Exam: Normal Exam - Neck Exam Neck Exam: Normal Inspection - Respiratory Exam Respiratory Exam: Decreased Breath Sounds - Cardiovascular Exam Cardiovascular Exam: REGULAR RHYTHM - GI/Abdominal Exam GI & Abdominal Exam: Normal Bowel Sounds - Extremities Exam Extremities Exam: Tenderness - Back Exam Back Exam: NORMAL INSPECTION - Neurological Exam Neurological Exam: Awake - Psychiatric Exam Psychiatric exam: Depressed - Skin Skin Exam: Dry Assessment and Plan (1) Diverticulosis Status: Acute (2) Elevated troponin Status: Acute (3) Hyperglycemia Status: Acute (4) Chronic kidney disease with end stage renal failure on dialysis Status: Chronic (5) ASHD (arteriosclerotic heart disease) Status: Acute (6) Diabetes mellitus Status: Acute
[2019-02-22] MEDS: (Lantus) Insulin Glargine, Recombinant SC SCH (21:59)
[2019-02-23] MEDS: (Novolog) Insulin Aspart, Recombinant 100 u/ml 10 ml vial SC SCH ×8 (07:10→23:44)
[2019-02-23] MEDS: Multivitamin Vitamin B Complex (Nephro-Vite) Tab PO SCH (09:17)
--- NOTE | 2019-02-23 15:51 | PN ---
DATE: 02/23/2019 SUBJECTIVE: The patient is alert, oriented. PHYSICAL EXAMINATION: GENERAL: The patient is not in distress. Her dyspnea has decreased. VITAL SIGNS: Afebrile with blood pressure 134/62, pulse 62 per minute, respirations 18 per minute, hemoglobin-oxygen saturation of 96%. HEART: Regular. No gallop rhythm. LUNGS: Diminished breath sounds. Rhonchi improved. ABDOMEN: Soft. EXTREMITIES: Legs, no edema. LABORATORY DATA: Her blood sugar is 159. IMPRESSION: Respiratory insufficiency, coronary artery disease, hypertensive cardiovascular disease, chronic obstructive pulmonary disease exacerbation, congestive heart failure, arthritis, chronic renal failure, end-stage renal disease. The patient on dialysis regimen. PLAN: To continue with the current medications including bronchodilators, vasodilators and renal care. Francisco Javier Guaman MD
--- NOTE | 2019-02-23 16:45 | CP.PCM.PN ---
Subjective - Date & Time of Evaluation Date of Evaluation: 02/23/19 Time of Evaluation: 16:45 - Subjective Subjective: ALERT, AWAKE, NO SOB OR CHEST PAINS, TOLERATED HD WELL. Objective - Vital Signs/Intake and Output Vital Signs (last 24 hours): Temp Pulse Resp BP Pulse Ox 98.2 F 57 L 18 134/71 95 02/23/19 15:26 02/23/19 15:26 02/23/19 15:26 02/23/19 15:26 02/23/19 15:26 - Medications Medications: Current Medications Aspirin (Aspirin Chewable) 81 mg PO DAILY [facility] Last Admin: 02/23/19 09:16 Dose: Not Given Atenolol (Tenormin) 50 mg PO DAILY [facility] Last Admin: 02/23/19 09:17 Dose: Not Given Clopidogrel Bisulfate (Plavix) 75 mg PO DAILY [facility] Last Admin: 02/23/19 09:17 Dose: Not Given Dextrose (Dextrose 50% Inj) 0 ml IV STAT PRN; Protocol PRN Reason: Hypoglycemia Protocol Dextrose (Glutose 15) 0 gm PO ONCE PRN; Protocol PRN Reason: Hypoglycemia Protocol Donepezil HCl (Aricept) 10 mg PO HS [facility] Last Admin: 02/22/19 21:57 Dose: 10 mg Enalapril Maleate (Vasotec) 10 mg PO DAILY [facility] Last Admin: 02/23/19 09:17 Dose: Not Given Ergocalciferol (Drisdol 50,000 Intl Units Cap) 1 cap PO Q7D [facility] Last Admin: 02/17/19 19:53 Dose: 1 cap Famotidine (Pepcid) 20 mg PO DAILY [facility] Last Admin: 02/23/19 09:17 Dose: Not Given Glucagon (Glucagen Diagnostic Kit) 0 mg IM STAT PRN; Protocol PRN Reason: Hypoglycemia Protocol Heparin Sodium (Porcine) (Heparin) 5,000 units SC Q12 [facility] Last Admin: 02/19/19 21:04 Dose: 5,000 units Hydralazine HCl (Apresoline) 25 mg PO TID [facility] Last Admin: 02/23/19 13:44 Dose: Not Given Dextrose (Dextrose 5% In Water 1000 Ml) 1,000 mls @ 0 mls/hr IV .Q0M PRN; Protocol PRN Reason: Hypoglycemia Protocol Insulin Aspart (Novolog) 0 unit SC ACHS [facility] Last Admin: 02/23/19 12:41 Dose: Not Given Insulin Aspart (Novolog) 6 unit SC AC [facility] Last Admin: 02/23/19 13:46 Dose: 6 u Insulin Glargine (Lantus) 14 unit SC HS [facility] Last Admin: 02/22/19 21:59 Dose: Not Given Montelukast Sodium (Singulair) 10 mg PO DAILY [facility] Last Admin: 02/23/19 09:17 Dose: Not Given Oxybutynin Chloride (Ditropan Xl) 5 mg PO DAILY [facility] Last Admin: 02/23/19 09:17 Dose: Not Given Quetiapine Fumarate (Seroquel) 25 mg PO DAILY [facility] Last Admin: 02/23/19 09:17 Dose: Not Given Repaglinide (Prandin) 2 mg PO ACTID [facility] Last Admin: 02/23/19 12:41 Dose: Not Given Rosuvastatin Calcium (Crestor) 5 mg PO HS [facility] Last Admin: 02/22/19 21:57 Dose: 5 mg Sevelamer Carbonate (Renvela) 800 mg PO TIDCC [facility] Last Admin: 02/23/19 12:42 Dose: Not Given Sitagliptin Phosphate (Januvia) 25 mg PO DAILY [facility] Last Admin: 02/23/19 09:17 Dose: Not Given Tramadol HCl (Ultram) 50 mg PO Q6H PRN PRN Reason: Pain, moderate (4-7) Last Admin: 02/22/19 12:26 Dose: 50 mg Vitamin B Complex/Vit C/Folic Acid (Nephro-Marina) 1 tab PO DAILY [facility] Last Admin: 02/23/19 09:17 Dose: Not Given - Labs Labs: 02/22/19 07:20 02/22/19 07:20 PT 10.9 SECONDS (9.7-12.2) 02/20/19 09:29 INR 1.0 02/20/19 09:29 APTT 34.9 SECONDS (21-34) H 02/20/19 09:29 Assessment and Plan - Assessment and Plan (Free Text) Assessment: 83 year old female admitted with abdominal pain, COPD, seen and examined after HD today. Alert and oriented, ambulatory, NAD. Cleared by surgery, discussed with DR Mccracken, plan to discharge home today. Advised to follow up with PMD in 1 week, continue with HD , MWF.
--- NOTE | 2019-02-23 17:48 | PCM.HF ---
Heart Failure Core Measure - Heart Failure Ejection Fraction: 40 % or Greater (EF 65 %) ADORE Inhibitor Prescribed: Yes Beta-Soraya Prescribed: None Contraindication/Reason for not providing: on atenelol Angiotensin II Receptor Soraya Prescribed: No Contraindication/Reason for not providing: on ADORE AnticoagulationTherapy for Atrial Fibrillation/Atrialflutter: No Contraindication/Reason for not providing: no afib Aldosterone Antagonist Prescribed: No Contraindication/Reason for not providing: ESRD Hydralazine Nitrate Prescribed: Yes Implantable Cardioverter Defibrillator Therapy: No Contraindication/Reason for not providing: EF >40% Cardiac Resynchronization Therapy Prescribed: No Contraindication/Reason for not providing: not indicated - Follow up Will be discharged to: Home Follow Up Date (must be within 7 days from discharge): 03/02/19
--- NOTE | 2019-02-23 18:41 | PN ---
DATE: 02/23/2019 ENDOCRINOLOGY FOLLOWUP NOTE LOCATION: Room 559. SUBJECTIVE: This is an 83-year-old female with recent uncontrolled type 2 insulin-requiring diabetes, now being followed closely for metabolic management. Her glycemic levels are fluctuating, but improved as noted overnight and the glucose levels have ranged from 141 to 159 and 225 mg/dL. It was 62 at bedtime last night. LABORATORY DATA: Her chemistry showed a BUN of 62, sodium 133, potassium 4.1, chloride 96, CO2 of 25, glucose 211 and creatinine 7. Hemoglobin A1c is 11.3%, which is quite elevated and indicative of suboptimal metabolic control of her diabetic condition. Moreover, her TSH is less than 0.02, which could be indicative of either subclinical hyperthyroidism versus acute sick euthyroid syndrome as noted. ASSESSMENT: This is an 83-year-old female with uncontrolled and decompensated type 2 insulin-requiring diabetes presenting here with marked hyperglycemic accelerations and is now being followed closely for metabolic management. She also has diabetic microvascular complications of retinopathy, polyneuropathy and nephropathy with end-stage renal disease and dialysis dependence. Moreover, she also has diabetic macrovascular complications of cerebrovascular disease with a previous transient ischemic event and coronary artery disease and also peripheral arterial disease and vasculopathy. PLAN OF MANAGEMENT: We will continue the modified basal and bolus insulin regimen as ordered with Novolog given as 6 units t.i.d. before meals to start today as given. We will also continue the Lantus given at a higher dose of 14 units subcutaneous at bedtime daily to start tonight. We will obtain serial chemistries and supplement accordingly as needed. We will also continue the same low dose correction scale using Novolog insulin as ordered. We will also repeat the thyroid studies for a full comprehensive testing to fully exclude the possibility of subclinical hyperthyroidism thereof. We will follow. Bella Gold MD
[2019-02-23] MEDS: (Lantus) Insulin Glargine, Recombinant SC SCH (21:27)
--- NOTE | 2019-02-23 22:44 | CP.PCM.PN ---
Subjective - Date & Time of Evaluation Date of Evaluation: 02/23/19 Time of Evaluation: 19:10 - Subjective Subjective: thyroid ultrasound examination reveals multiple cysts. I have requested a nuclear medicine study of the thyroid gland. It is necessary to ascertain if patient has cold or hot nodules. Objective - Vital Signs/Intake and Output Vital Signs (last 24 hours): Temp Pulse Resp BP Pulse Ox 98.2 F 57 L 18 134/71 95 02/23/19 15:26 02/23/19 15:26 02/23/19 15:26 02/23/19 15:26 02/23/19 15:26 - Medications Medications: Current Medications Aspirin (Aspirin Chewable) 81 mg PO DAILY [facility] Last Admin: 02/23/19 09:16 Dose: Not Given Atenolol (Tenormin) 50 mg PO DAILY [facility] Last Admin: 02/23/19 09:17 Dose: Not Given Clopidogrel Bisulfate (Plavix) 75 mg PO DAILY [facility] Last Admin: 02/23/19 09:17 Dose: Not Given Dextrose (Dextrose 50% Inj) 0 ml IV STAT PRN; Protocol PRN Reason: Hypoglycemia Protocol Dextrose (Glutose 15) 0 gm PO ONCE PRN; Protocol PRN Reason: Hypoglycemia Protocol Donepezil HCl (Aricept) 10 mg PO HS [facility] Last Admin: 02/23/19 21:27 Dose: 10 mg Enalapril Maleate (Vasotec) 10 mg PO DAILY [facility] Last Admin: 02/23/19 09:17 Dose: Not Given Ergocalciferol (Drisdol 50,000 Intl Units Cap) 1 cap PO Q7D [facility] Last Admin: 02/17/19 19:53 Dose: 1 cap Famotidine (Pepcid) 20 mg PO DAILY [facility] Last Admin: 02/23/19 09:17 Dose: Not Given Glucagon (Glucagen Diagnostic Kit) 0 mg IM STAT PRN; Protocol PRN Reason: Hypoglycemia Protocol Heparin Sodium (Porcine) (Heparin) 5,000 units SC Q12 [facility] Last Admin: 02/19/19 21:04 Dose: 5,000 units Hydralazine HCl (Apresoline) 25 mg PO TID [facility] Last Admin: 02/23/19 17:38 Dose: 25 mg Dextrose (Dextrose 5% In Water 1000 Ml) 1,000 mls @ 0 mls/hr IV .Q0M PRN; Protocol PRN Reason: Hypoglycemia Protocol Insulin Aspart (Novolog) 0 unit SC ACHS [facility] Last Admin: 02/23/19 17:14 Dose: Not Given Insulin Aspart (Novolog) 6 unit SC AC [facility] Last Admin: 02/23/19 17:15 Dose: Not Given Insulin Glargine (Lantus) 14 unit SC HS [facility] Last Admin: 02/23/19 21:27 Dose: 14 unit Montelukast Sodium (Singulair) 10 mg PO DAILY [facility] Last Admin: 02/23/19 21:27 Dose: 10 mg Oxybutynin Chloride (Ditropan Xl) 5 mg PO DAILY [facility] Last Admin: 02/23/19 09:17 Dose: Not Given Quetiapine Fumarate (Seroquel) 25 mg PO DAILY [facility] Last Admin: 02/23/19 09:17 Dose: Not Given Repaglinide (Prandin) 2 mg PO ACTID [facility] Last Admin: 02/23/19 17:15 Dose: Not Given Rosuvastatin Calcium (Crestor) 5 mg PO HS [facility] Last Admin: 02/23/19 21:27 Dose: 5 mg Sevelamer Carbonate (Renvela) 800 mg PO TIDCC [facility] Last Admin: 02/23/19 17:38 Dose: 800 mg Sitagliptin Phosphate (Januvia) 25 mg PO DAILY [facility] Last Admin: 02/23/19 09:17 Dose: Not Given Tramadol HCl (Ultram) 50 mg PO Q6H PRN PRN Reason: Pain, moderate (4-7) Last Admin: 02/22/19 12:26 Dose: 50 mg Vitamin B Complex/Vit C/Folic Acid (Nephro-Marina) 1 tab PO DAILY [facility] Last Admin: 02/23/19 09:17 Dose: Not Given - Labs Labs: 02/22/19 07:20 02/22/19 07:20 PT 10.9 SECONDS (9.7-12.2) 02/20/19 09:29 INR 1.0 02/20/19 09:29 APTT 34.9 SECONDS (21-34) H 02/20/19 09:29 - Constitutional Appears: Chronically Ill - Head Exam Head Exam: NORMOCEPHALIC - Eye Exam Eye Exam: Normal appearance Pupil Exam: NORMAL ACCOMODATION - Neck Exam Neck Exam: Normal Inspection - Respiratory Exam Respiratory Exam: Decreased Breath Sounds - Cardiovascular Exam Cardiovascular Exam: REGULAR RHYTHM - GI/Abdominal Exam GI & Abdominal Exam: Normal Bowel Sounds - Extremities Exam Extremities Exam: Tenderness - Back Exam Back Exam: NORMAL INSPECTION - Neurological Exam Neurological Exam: Awake - Psychiatric Exam Psychiatric exam: Depressed - Skin Skin Exam: Dry Assessment and Plan (1) Diverticulosis Status: Acute (2) Elevated troponin Status: Acute (3) Hyperglycemia Status: Acute (4) Chronic kidney disease with end stage renal failure on dialysis Status: Chronic (5) ASHD (arteriosclerotic heart disease) Status: Acute (6) Diabetes mellitus Status: Acute
[2019-02-24] MEDS: (Novolog) Insulin Aspart, Recombinant 100 u/ml 10 ml vial SC SCH ×7 (08:29→21:32)
[2019-02-24] MEDS: Multivitamin Vitamin B Complex (Nephro-Vite) Tab PO SCH (10:06)
[2019-02-24 11:54] LABS: ALB/GLOB RATIO 1.5 (1.0-2.1); ALBUMIN 4.1 g/dL (3.5-5.0); ALT/SGPT 23 U/L (9-52); AST/SGOT 31 U/L (14-36); BLOOD UREA NITROGEN 63 mg/dL (7-17); CALCIUM 9.4 mg/dl (8.6-10.4); GFR NON-AFRICAN AMERICAN 6
[2019-02-24] MEDS: Ergocalciferol 50,000 Intl Units Cap PO SCH (19:56)
[2019-02-24] MEDS: (Lantus) Insulin Glargine, Recombinant SC SCH (21:46)
--- NOTE | 2019-02-24 22:05 | PN ---
DATE: 02/24/2019 SUBJECTIVE: The patient is alert, in bed, not in distress. Her dyspnea has improved. There is no chest pain. PHYSICAL EXAMINATION: VITAL SIGNS: She is afebrile. Her blood pressure is 139/53, pulse 60, respirations 20, and hemoglobin oxygen saturation 96% on room air. HEART: Regular. No gallop rhythm. LUNGS: Diminished breath sounds over the lung bases. Rhonchi improved. ABDOMEN: Soft. EXTREMITIES: Legs, no edema. LABORATORY DATA: Sodium is 135, potassium 3.7, chloride 91, BUN 63, creatinine 7, calcium 9.4, phosphorus 5.6, magnesium 2.4. Chest x-ray/CT chest shows decrease in right pleural effusion with better aeration in the right lower lobe. There are no suspicious pulmonary nodules, masses or infiltrates. IMPRESSION: Respiratory insufficiency, chronic obstructive pulmonary disease, hypertension, diabetes mellitus, renal failure. The patient is on dialysis treatment. 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 PLAN: To continue with current medications and dialysis therapy and renal followup and thyroid evaluation. Continue with bronchodilators and vasodilators. Francisco Javier Guaman MD
--- NOTE | 2019-02-24 22:37 | CP.PCM.PN ---
Subjective - Date & Time of Evaluation Date of Evaluation: 02/24/19 Time of Evaluation: 19:10 - Subjective Subjective: patient more alert and responsive tonight. Blood sugar has been under fair control today. Awaiting thyroid uptake studies to determine the status of a number of thyroid nodules on the right lobe of the thyroid gland. Objective - Vital Signs/Intake and Output Vital Signs (last 24 hours): Temp Pulse Resp BP Pulse Ox 97.6 F 60 20 139/53 L 96 02/24/19 15:00 02/24/19 15:00 02/24/19 15:00 02/24/19 15:00 02/24/19 15:00 Intake and Output: 02/24/19 02/25/19 18:59 06:59 Intake Total 300 Balance 300 - Medications Medications: Current Medications Aspirin (Aspirin Chewable) 81 mg PO DAILY [facility] Last Admin: 02/24/19 10:07 Dose: 81 mg Atenolol (Tenormin) 50 mg PO DAILY [facility] Last Admin: 02/24/19 10:06 Dose: 50 mg Clopidogrel Bisulfate (Plavix) 75 mg PO DAILY [facility] Last Admin: 02/24/19 10:06 Dose: 75 mg Dextrose (Dextrose 50% Inj) 0 ml IV STAT PRN; Protocol PRN Reason: Hypoglycemia Protocol Dextrose (Glutose 15) 0 gm PO ONCE PRN; Protocol PRN Reason: Hypoglycemia Protocol Donepezil HCl (Aricept) 10 mg PO HS [facility] Last Admin: 02/24/19 21:46 Dose: 10 mg Enalapril Maleate (Vasotec) 10 mg PO DAILY [facility] Last Admin: 02/24/19 10:07 Dose: 10 mg Ergocalciferol (Drisdol 50,000 Intl Units Cap) 1 cap PO Q7D [facility] Last Admin: 02/24/19 19:56 Dose: 1 cap Famotidine (Pepcid) 20 mg PO DAILY [facility] Last Admin: 02/24/19 10:06 Dose: 20 mg Glucagon (Glucagen Diagnostic Kit) 0 mg IM STAT PRN; Protocol PRN Reason: Hypoglycemia Protocol Heparin Sodium (Porcine) (Heparin) 5,000 units SC Q12 [facility] Last Admin: 02/19/19 21:04 Dose: 5,000 units Hydralazine HCl (Apresoline) 25 mg PO TID [facility] Last Admin: 05/21/19 18:19 Dose: 25 mg Dextrose (Dextrose 5% In Water 1000 Ml) 1,000 mls @ 0 mls/hr IV .Q0M PRN; Protocol PRN Reason: Hypoglycemia Protocol Insulin Aspart (Novolog) 0 unit SC ACHS [facility] Last Admin: 02/24/19 21:32 Dose: Not Given Insulin Aspart (Novolog) 6 unit SC AC [facility] Last Admin: 02/24/19 16:11 Dose: Not Given Insulin Glargine (Lantus) 14 unit SC HS [facility] Last Admin: 02/24/19 21:46 Dose: 14 unit Montelukast Sodium (Singulair) 10 mg PO DAILY [facility] Last Admin: 02/24/19 10:07 Dose: 10 mg Oxybutynin Chloride (Ditropan Xl) 5 mg PO DAILY [facility] Last Admin: 02/24/19 10:06 Dose: 5 mg Quetiapine Fumarate (Seroquel) 25 mg PO DAILY [facility] Last Admin: 02/24/19 10:06 Dose: 25 mg Repaglinide (Prandin) 2 mg PO ACTID [facility] Last Admin: 02/24/19 16:11 Dose: Not Given Rosuvastatin Calcium (Crestor) 5 mg PO HS [facility] Last Admin: 02/24/19 21:46 Dose: 5 mg Sevelamer Carbonate (Renvela) 800 mg PO TIDCC [facility] Last Admin: 02/24/19 18:19 Dose: 800 mg Sitagliptin Phosphate (Januvia) 25 mg PO DAILY [facility] Last Admin: 02/24/19 10:07 Dose: 25 mg Tramadol HCl (Ultram) 50 mg PO Q6H PRN PRN Reason: Pain, moderate (4-7) Last Admin: 02/24/19 01:37 Dose: 50 mg Vitamin B Complex/Vit C/Folic Acid (Nephro-Marina) 1 tab PO DAILY [facility] Last Admin: 02/24/19 10:06 Dose: 1 tab - Labs Labs: 02/22/19 07:20 02/24/19 11:22 PT 10.9 SECONDS (9.7-12.2) 02/20/19 09:29 INR 1.0 02/20/19 09:29 APTT 34.9 SECONDS (21-34) H 02/20/19 09:29 - Constitutional Appears: Chronically Ill - Head Exam Head Exam: NORMOCEPHALIC - Eye Exam Eye Exam: Normal appearance Pupil Exam: NORMAL ACCOMODATION - ENT Exam ENT Exam: Normal Exam - Neck Exam Neck Exam: Normal Inspection - Respiratory Exam Respiratory Exam: Decreased Breath Sounds - Cardiovascular Exam Cardiovascular Exam: REGULAR RHYTHM - GI/Abdominal Exam GI & Abdominal Exam: Normal Bowel Sounds - Back Exam Back Exam: NORMAL INSPECTION - Neurological Exam Neurological Exam: Oriented x3 - Psychiatric Exam Psychiatric exam: Depressed - Skin Skin Exam: Dry Assessment and Plan (1) Diverticulosis Status: Acute (2) Elevated troponin Status: Acute (3) Hyperglycemia Status: Acute (4) Chronic kidney disease with end stage renal failure on dialysis Status: Chronic (5) ASHD (arteriosclerotic heart disease) Status: Acute (6) Diabetes mellitus Status: Acute
--- NOTE | 2019-02-25 07:53 | PN ---
DATE: 02/24/2019 ENDOCRINOLOGY FOLLOWUP NOTE LOCATION: Room 559. SUBJECTIVE: The patient is an 83-year-old female with recent uncontrolled insulin requiring diabetes, presenting here with acute exacerbation of COPD. Currently, on a tapering dosing of steroid therapy . Her glycemic levels are fluctuating with the and her glucose values today range from 120 . LABORATORY DATA: Her chemistry showed a BUN of 63, sodium 135, potassium 3.7, chloride 91, thyroid studies showed a T4 of 9.92 with a TSH of less than 0.02. ASSESSMENT: This is an 83-year-old female with uncontrolled type 2 insulin requiring diabetes with acute sick euthyroid syndrome superimposed with the present medical and physical stressors at this time. She also has diabetic microvascular complications for retinopathy, polyneuropathy and nephropathy with end-stage renal disease and dialysis dependent. She also has diabetic macrovascular complications of cerebrovascular disease with a transient ischemic event and coronary artery disease and peripheral arterial disease and vasculopathy. PLAN OF MANAGEMENT: We will continue the same modifying basal and bolus insulin regimen to allow for dose equilibration and keep her on the Novolog given as 6 units t.i.d. before meals as ordered. We will also continue the Lantus given as basal insulin at 14 units subcutaneous at bedtime daily as given. We will titrate incremental as indicated to optimize metabolic control. We also will increase the dual oral hypoglycemic drug therapy given as Prandin 2 mg b.i.d. and Januvia at 25 mg once daily in the morning as ordered. We will obtain serial chemistry and supplemental accordingly as needed. We will follow. Bella Gold MD
[2019-02-25] MEDS: (Novolog) Insulin Aspart, Recombinant 100 u/ml 10 ml vial SC SCH ×8 (07:57→21:59)
[2019-02-25] MEDS: Multivitamin Vitamin B Complex (Nephro-Vite) Tab PO SCH (13:09)
--- NOTE | 2019-02-25 18:24 | PN ---
DATE: 02/25/2019 ENDOCRINOLOGY FOLLOWUP NOTE LOCATION: Room 559. SUBJECTIVE: This is an 83-year-old female with recent uncontrolled type 2 insulin requiring diabetes with recent extremes of glycemic fluctuation related to the variability of her oral intake as noted thereof. Her glucose levels today have ranged from 75 to 178 and 180 mg/dL. Her chemistry showed a BUN of 63, sodium 135, potassium was 3.7, chloride 91, CO2 29, glucose 160, and creatinine is 7. ASSESSMENT AND PLAN: This is an 83-year-old female with recent uncontrolled type 2 insulin requiring diabetes with extreme subglycemic fluctuation related to the variability of her oral intake as noted thereof. She also has diabetic microvascular complications of retinopathy, polyneuropathy, and nephropathy with end stage renal disease and dialysis dependent. She also has diabetic macrovascular complications with coronary artery disease, peripheral arterial disease and vasculopathy, and a previous cerebrovascular event with no residual deficits as she only had a transient ischemic attack as noted. PLAN OF MANAGEMENT: We will modify once again her basal and bolus insulin regimen and lower the Novolog to 4 units t.i.d. before meals to start today as ordered. We will also continue with the same basal insulin given at a low dose of Lantus at 14 units subcu at bedtime daily as given. We will obtain serial chemistry and supplement accordingly as needed. We will also obtain serial thyroid studies and titrate the dose regimen accordingly. Bella Gold MD
[2019-02-25] MEDS: (Lantus) Insulin Glargine, Recombinant SC SCH (21:59)
--- NOTE | 2019-02-25 22:29 | CP.PCM.PN ---
Subjective - Date & Time of Evaluation Date of Evaluation: 02/25/19 Time of Evaluation: 19:05 - Subjective Subjective: patient is undergoing thyroid uptake stud due to multiple thyroid nodules. Patient was eval due to her erratic blood sugar levels.. Patient also on scheduled for dialysis treatments 3 times a week. Patient may need thyroid nodule biopsy Objective - Vital Signs/Intake and Output Vital Signs (last 24 hours): Temp Pulse Resp BP Pulse Ox 98.2 F 61 20 144/67 99 02/25/19 15:00 02/25/19 15:00 02/25/19 15:00 02/25/19 15:00 02/25/19 15:00 - Medications Medications: Current Medications Aspirin (Aspirin Chewable) 81 mg PO DAILY [facility] Last Admin: 02/25/19 13:10 Dose: 81 mg Atenolol (Tenormin) 50 mg PO DAILY [facility] Last Admin: 02/25/19 13:16 Dose: 50 mg Clopidogrel Bisulfate (Plavix) 75 mg PO DAILY [facility] Last Admin: 02/25/19 13:10 Dose: 75 mg Dextrose (Dextrose 50% Inj) 0 ml IV STAT PRN; Protocol PRN Reason: Hypoglycemia Protocol Dextrose (Glutose 15) 0 gm PO ONCE PRN; Protocol PRN Reason: Hypoglycemia Protocol Donepezil HCl (Aricept) 10 mg PO HS [facility] Last Admin: 02/25/19 22:04 Dose: 10 mg Enalapril Maleate (Vasotec) 10 mg PO DAILY [facility] Last Admin: 02/25/19 13:10 Dose: 10 mg Ergocalciferol (Drisdol 50,000 Intl Units Cap) 1 cap PO Q7D [facility] Last Admin: 02/24/19 19:56 Dose: 1 cap Famotidine (Pepcid) 20 mg PO DAILY [facility] Last Admin: 02/25/19 13:10 Dose: 20 mg Glucagon (Glucagen Diagnostic Kit) 0 mg IM STAT PRN; Protocol PRN Reason: Hypoglycemia Protocol Heparin Sodium (Porcine) (Heparin) 5,000 units SC Q12 [facility] Last Admin: 02/19/19 21:04 Dose: 5,000 units Hydralazine HCl (Apresoline) 25 mg PO TID [facility] Last Admin: 02/25/19 16:59 Dose: 25 mg Insulin Aspart (Novolog) 0 unit SC ACHS [facility] Last Admin: 02/25/19 21:59 Dose: Not Given Insulin Aspart (Novolog) 4 unit SC AC [facility] Last Admin: 02/25/19 16:59 Dose: 4 units Insulin Glargine (Lantus) 14 unit SC [facility] Last Admin: 02/25/19 21:59 Dose: Not Given Montelukast Sodium (Singulair) 10 mg PO DAILY [facility] Last Admin: 02/25/19 13:10 Dose: 10 mg Oxybutynin Chloride (Ditropan Xl) 5 mg PO DAILY [facility] Last Admin: 02/25/19 13:20 Dose: 5 mg Quetiapine Fumarate (Seroquel) 25 mg PO DAILY [facility] Last Admin: 02/25/19 13:09 Dose: 25 mg Repaglinide (Prandin) 2 mg PO ACTID [facility] Last Admin: 02/25/19 16:58 Dose: 2 mg Rosuvastatin Calcium (Crestor) 5 mg PO [facility] Last Admin: 02/25/19 22:03 Dose: 5 mg Sevelamer Carbonate (Renvela) 800 mg PO TIDCC [facility] Last Admin: 02/25/19 16:58 Dose: 800 mg Sitagliptin Phosphate (Januvia) 25 mg PO DAILY [facility] Last Admin: 02/25/19 13:09 Dose: 25 mg Tramadol HCl (Ultram) 50 mg PO Q6H PRN PRN Reason: Pain, moderate (4-7) Last Admin: 02/24/19 01:37 Dose: 50 mg Vitamin B Complex/Vit C/Folic Acid (Nephro-Marina) 1 tab PO DAILY [facility] Last Admin: 02/25/19 13:09 Dose: 1 tab - Labs Labs: 02/22/19 07:20 02/24/19 11:22 PT 10.9 SECONDS (9.7-12.2) 02/20/19 09:29 INR 1.0 02/20/19 09:29 APTT 34.9 SECONDS (21-34) H 02/20/19 09:29 - Constitutional Appears: Chronically Ill - Head Exam Head Exam: NORMOCEPHALIC - Eye Exam Eye Exam: Normal appearance Pupil Exam: NORMAL ACCOMODATION - ENT Exam ENT Exam: Normal Exam - Neck Exam Neck Exam: Normal Inspection - Respiratory Exam Respiratory Exam: Decreased Breath Sounds - Cardiovascular Exam Cardiovascular Exam: REGULAR RHYTHM - GI/Abdominal Exam GI & Abdominal Exam: Normal Bowel Sounds - Extremities Exam Extremities Exam: Tenderness - Back Exam Back Exam: NORMAL INSPECTION - Neurological Exam Neurological Exam: Awake - Psychiatric Exam Psychiatric exam: Depressed - Skin Skin Exam: Dry Assessment and Plan (1) Diverticulosis Status: Acute (2) Elevated troponin Status: Acute (3) Hyperglycemia Status: Acute (4) Chronic kidney disease with end stage renal failure on dialysis Status: Chronic (5) ASHD (arteriosclerotic heart disease) Status: Acute (6) Diabetes mellitus Status: Acute (7) Thyroid nodule Status: Acute
[2019-02-26] MEDS: (Novolog) Insulin Aspart, Recombinant 100 u/ml 10 ml vial SC SCH ×7 (07:49→21:37)
[2019-02-26] MEDS: Multivitamin Vitamin B Complex (Nephro-Vite) Tab PO SCH (10:28)
--- NOTE | 2019-02-26 15:04 | CP.PCM.PN ---
Subjective - Date & Time of Evaluation Date of Evaluation: 02/26/19 Time of Evaluation: 14:00 - Subjective Subjective: SEEN ON RENAL F/U FEELS IMPROVED ALL PREVIOUS EMR REVIEWED Objective - Vital Signs/Intake and Output Vital Signs (last 24 hours): Temp Pulse Resp BP Pulse Ox 98.1 F 57 L 18 145/65 99 02/26/19 07:00 02/26/19 07:00 02/26/19 07:00 02/26/19 10:24 02/26/19 07:00 - Medications Medications: Current Medications Aspirin (Aspirin Chewable) 81 mg PO DAILY [facility] Last Admin: 02/26/19 10:26 Dose: 81 mg Atenolol (Tenormin) 50 mg PO DAILY [facility] Last Admin: 02/26/19 10:25 Dose: 50 mg Clopidogrel Bisulfate (Plavix) 75 mg PO DAILY [facility] Last Admin: 02/26/19 10:28 Dose: 75 mg Dextrose (Dextrose 50% Inj) 0 ml IV STAT PRN; Protocol PRN Reason: Hypoglycemia Protocol Dextrose (Glutose 15) 0 gm PO ONCE PRN; Protocol PRN Reason: Hypoglycemia Protocol Donepezil HCl (Aricept) 10 mg PO HS [facility] Last Admin: 02/25/19 22:04 Dose: 10 mg Enalapril Maleate (Vasotec) 10 mg PO DAILY [facility] Last Admin: 02/26/19 10:24 Dose: 10 mg Ergocalciferol (Drisdol 50,000 Intl Units Cap) 1 cap PO Q7D [facility] Last Admin: 02/24/19 19:56 Dose: 1 cap Famotidine (Pepcid) 20 mg PO DAILY [facility] Last Admin: 02/26/19 10:27 Dose: 20 mg Glucagon (Glucagen Diagnostic Kit) 0 mg IM STAT PRN; Protocol PRN Reason: Hypoglycemia Protocol Heparin Sodium (Porcine) (Heparin) 5,000 units SC Q12 [facility] Last Admin: 02/19/19 21:04 Dose: 5,000 units Hydralazine HCl (Apresoline) 25 mg PO TID [facility] Last Admin: 02/26/19 13:07 Dose: 25 mg Insulin Aspart (Novolog) 0 unit SC ACHS [facility] Last Admin: 02/26/19 11:35 Dose: Not Given Insulin Aspart (Novolog) 4 unit SC AC [facility] Last Admin: 02/26/19 12:18 Dose: 4 units Insulin Glargine (Lantus) 14 unit SC [facility] Last Admin: 02/25/19 21:59 Dose: Not Given Montelukast Sodium (Singulair) 10 mg PO DAILY [facility] Last Admin: 02/26/19 10:27 Dose: 10 mg Oxybutynin Chloride (Ditropan Xl) 5 mg PO DAILY [facility] Last Admin: 02/26/19 10:27 Dose: 5 mg Quetiapine Fumarate (Seroquel) 25 mg PO DAILY [facility] Last Admin: 02/26/19 10:28 Dose: 25 mg Repaglinide (Prandin) 2 mg PO ACTID [facility] Last Admin: 02/26/19 12:22 Dose: 2 mg Rosuvastatin Calcium (Crestor) 5 mg PO [facility] Last Admin: 02/25/19 22:03 Dose: 5 mg Sevelamer Carbonate (Renvela) 800 mg PO TIDCC [facility] Last Admin: 02/26/19 12:21 Dose: 800 mg Sitagliptin Phosphate (Januvia) 25 mg PO DAILY [facility] Last Admin: 02/26/19 10:27 Dose: 25 mg Tramadol HCl (Ultram) 50 mg PO Q6H PRN PRN Reason: Pain, moderate (4-7) Last Admin: 02/24/19 01:37 Dose: 50 mg Vitamin B Complex/Vit C/Folic Acid (Nephro-Marina) 1 tab PO DAILY [facility] Last Admin: 02/26/19 10:28 Dose: 1 tab - Labs Labs: 02/22/19 07:20 02/24/19 11:22 PT 10.9 SECONDS (9.7-12.2) 02/20/19 09:29 INR 1.0 02/20/19 09:29 APTT 34.9 SECONDS (21-34) H 02/20/19 09:29 Assessment and Plan - Assessment and Plan (Free Text) Assessment: C/O CURRENT MANAGENENT PT IS CLEARED RENALLY FOR D/C
--- NOTE | 2019-02-26 16:04 | PN ---
DATE: 02/26/2019 SUBJECTIVE: The patient is alert, oriented. Afebrile. Not in distress while at rest. No chest pain. No shortness of breath at rest. She can have conversation without difficulty and without dyspnea. PHYSICAL EXAMINATION: HEART: Regular. No gallop rhythm. LUNGS: Fair air entry. Rhonchi improved. ABDOMEN: Soft. EXTREMITIES: No leg edema. LABORATORY DATA: Her blood glucose is 200. Chest screen showed decrease in right pleural effusion consistent with congestive changes. No suspicious pulmonary nodules, masses or infiltrates reported. IMPRESSION: Respiratory insufficiency, chronic obstructive pulmonary disease exacerbation, renal failure, diabetes mellitus, hypertension, coronary artery disease. PLAN: To continue with current medications. Follow with primary medical doctor and Renal. Continue with bronchodilators and vasodilators. Francisco Javier Guaman MD
--- NOTE | 2019-02-26 21:56 | PN ---
DATE: 02/26/2019 ENDOCRINOLOGY FOLLOWUP NOTE LOCATION: Room 559. SUBJECTIVE: This is an 83-year-old female with recent uncontrolled type 2 insulin-requiring diabetes, presenting with acute exacerbation of COPD and has improved clinically and hemodynamically as noted thereof. Her glycemic levels are fluctuating with a variability of her oral intake as noted and today's glucose levels have ranged from 78 to 137 and 200 mg/dL. Her bedtime glucose was 101 mg/dL. LABORATORY DATA: Her chemistry showed a BUN of 63, sodium 135, potassium 3.7, chloride 91, CO2 of 29, glucose 163, creatinine 7. Her thyroid studies showed a T4 of 9.92 with a TSH of less than 0.02. Her hemoglobin A1c, however, is elevated at 11.3% as noted. ASSESSMENT: This is an 83-year-old female with recent uncontrolled type 2 insulin-requiring diabetes with extremes of glycemic fluctuations depending on the variability of oral intake with low normal glycemic profile today as noted. She also has diabetic microvascular complications of retinopathy, polyneuropathy, and nephropathy with end-stage renal disease and dialysis dependence. She also has diabetic macrovascular complications with cerebrovascular disease, coronary artery disease, and peripheral arterial disease and vasculopathy. PLAN OF MANAGEMENT: We will continue the current basal and bolus insulin regimen as ordered in the hospital with Lantus to be lowered at least to 12 units subcutaneous at bedtime daily to start tonight. We will also continue the NovoLog given as 4 units subcutaneous t.i.d. before meals as ordered. We will continue the oral hypoglycemic therapy with Januvia at 25 mg daily and Prandin at 2 mg p.o. t.i.d. with meals as ordered. We will, however, discontinue the NovoLog given at a small dose of 4 units t.i.d. before meals for home diabetic management because of the variability of her oral intake and predilection for hypoglycemia. However, if her oral intake improves at home, then she has been advised back on a very low dose of Humalog or NovoLog given as 4 units subcutaneous t.i.d. with meals as ordered. We will obtain serial chemistries and supplement accordingly as needed. We will follow. Bella Gold MD [facility] # [id number]
[2019-02-26] MEDS ORDERED: (Lantus) Insulin Glargine, Recombinant SC SCH (22:00)
--- NOTE | 2019-02-26 23:21 | CP.PCM.PN ---
Subjective - Date & Time of Evaluation Date of Evaluation: 02/26/19 Time of Evaluation: 19:15 - Subjective Subjective: patient completed thyroid uptake study. She is more alert and responsive tonight. Patient was evaluated and cleared by Dr. Diaz. the patient is scheduled for dialysis in AM. Objective - Vital Signs/Intake and Output Vital Signs (last 24 hours): Temp Pulse Resp BP Pulse Ox 98.2 F 66 20 116/61 97 02/26/19 15:00 02/26/19 15:00 02/26/19 15:00 02/26/19 15:00 02/26/19 15:00 - Medications Medications: Current Medications Aspirin (Aspirin Chewable) 81 mg PO DAILY [facility] Last Admin: 02/26/19 10:26 Dose: 81 mg Atenolol (Tenormin) 50 mg PO DAILY [facility] Last Admin: 02/26/19 10:25 Dose: 50 mg Clopidogrel Bisulfate (Plavix) 75 mg PO DAILY [facility] Last Admin: 02/26/19 10:28 Dose: 75 mg Dextrose (Dextrose 50% Inj) 0 ml IV STAT PRN; Protocol PRN Reason: Hypoglycemia Protocol Dextrose (Glutose 15) 0 gm PO ONCE PRN; Protocol PRN Reason: Hypoglycemia Protocol Donepezil HCl (Aricept) 10 mg PO HS [facility] Last Admin: 02/26/19 21:35 Dose: 10 mg Enalapril Maleate (Vasotec) 10 mg PO DAILY [facility] Last Admin: 02/26/19 10:24 Dose: 10 mg Ergocalciferol (Drisdol 50,000 Intl Units Cap) 1 cap PO Q7D [facility] Last Admin: 02/24/19 19:56 Dose: 1 cap Famotidine (Pepcid) 20 mg PO DAILY [facility] Last Admin: 02/26/19 10:27 Dose: 20 mg Glucagon (Glucagen Diagnostic Kit) 0 mg IM STAT PRN; Protocol PRN Reason: Hypoglycemia Protocol Heparin Sodium (Porcine) (Heparin) 5,000 units SC Q12 [facility] Last Admin: 02/19/19 21:04 Dose: 5,000 units Hydralazine HCl (Apresoline) 25 mg PO TID [facility] Last Admin: 02/26/19 17:22 Dose: 25 mg Insulin Aspart (Novolog) 0 unit SC ACHS [facility] Last Admin: 02/26/19 21:37 Dose: Not Given Insulin Aspart (Novolog) 4 unit SC AC [facility] Last Admin: 02/26/19 17:18 Dose: Not Given Insulin Glargine (Lantus) 12 unit SC [facility] Last Admin: 02/26/19 21:35 Dose: 12 u Montelukast Sodium (Singulair) 10 mg PO DAILY [facility] Last Admin: 02/26/19 10:27 Dose: 10 mg Oxybutynin Chloride (Ditropan Xl) 5 mg PO DAILY [facility] Last Admin: 02/26/19 10:27 Dose: 5 mg Quetiapine Fumarate (Seroquel) 25 mg PO DAILY [facility] Last Admin: 02/26/19 10:28 Dose: 25 mg Repaglinide (Prandin) 2 mg PO ACTID [facility] Last Admin: 02/26/19 17:22 Dose: 2 mg Rosuvastatin Calcium (Crestor) 5 mg PO HS [facility] Last Admin: 02/26/19 21:35 Dose: 5 mg Sevelamer Carbonate (Renvela) 800 mg PO TIDCC [facility] Last Admin: 02/26/19 17:22 Dose: 800 mg Sitagliptin Phosphate (Januvia) 25 mg PO DAILY [facility] Last Admin: 02/26/19 10:27 Dose: 25 mg Tramadol HCl (Ultram) 50 mg PO Q6H PRN PRN Reason: Pain, moderate (4-7) Last Admin: 02/24/19 01:37 Dose: 50 mg Vitamin B Complex/Vit C/Folic Acid (Nephro-Marina) 1 tab PO DAILY [facility] Last Admin: 02/26/19 10:28 Dose: 1 tab - Labs Labs: 02/22/19 07:20 02/24/19 11:22 PT 10.9 SECONDS (9.7-12.2) 02/20/19 09:29 INR 1.0 02/20/19 09:29 APTT 34.9 SECONDS (21-34) H 02/20/19 09:29 - Constitutional Appears: Chronically Ill - Head Exam Head Exam: NORMOCEPHALIC - Eye Exam Eye Exam: Normal appearance Pupil Exam: NORMAL ACCOMODATION - ENT Exam ENT Exam: Normal Exam - Neck Exam Neck Exam: Normal Inspection - Respiratory Exam Respiratory Exam: Decreased Breath Sounds - Cardiovascular Exam Cardiovascular Exam: REGULAR RHYTHM - GI/Abdominal Exam GI & Abdominal Exam: Normal Bowel Sounds - Extremities Exam Extremities Exam: Tenderness - Back Exam Back Exam: NORMAL INSPECTION - Neurological Exam Neurological Exam: Oriented x3 - Psychiatric Exam Psychiatric exam: Depressed - Skin Skin Exam: Dry Assessment and Plan (1) Diverticulosis Status: Acute (2) Elevated troponin Status: Acute (3) Hyperglycemia Status: Acute (4) Chronic kidney disease with end stage renal failure on dialysis Status: Chronic (5) ASHD (arteriosclerotic heart disease) Status: Acute (6) Diabetes mellitus Status: Acute (7) Thyroid nodule Status: Acute
--- NOTE | 2019-02-27 06:47 | PN ---
DATE: 02/25/2019 SUBJECTIVE: The patient noted to be alert. PHYSICAL EXAMINATION: GENERAL: The patient was on dialysis on 02/25/2019 and was not in distress. VITAL SIGNS: Afebrile, blood pressure 140/60, pulse 62, respirations 20, hemoglobin oxygen saturation 94%. HEART: Regular. No gallop rhythm. LUNGS: Diminished breath sounds, lung bases. Rhonchi decreased. ABDOMEN: Soft. EXTREMITIES: Legs, no edema. IMPRESSION: Respiratory insufficiency with exacerbation of chronic obstructive pulmonary disease, renal failure, hypertension, cardiovascular disease and coronary artery disease with congestive heart failure, end-stage renal failure and arthritis. PLAN: To continue with current medications and renal dialysis as planned. Francisco Javier Guaman MD
[2019-02-27] MEDS: (Novolog) Insulin Aspart, Recombinant 100 u/ml 10 ml vial SC SCH ×5 (08:00→16:32)
--- NOTE | 2019-02-27 11:54 | CP.PCM.PN ---
Subjective - Date & Time of Evaluation Date of Evaluation: 02/27/19 Time of Evaluation: 11:53 - Subjective Subjective: Dialysis note (Covering for Dr Diza) pt was seen during HD she was asymptomatic no complaints HD order reviewed and d/w RN in unit changed to 3 K bath today. last K 3.7 Hb >10 stable Phos 5.6 at goal continue with HD MWF schedule as ordered Objective - Vital Signs/Intake and Output Vital Signs (last 24 hours): Temp Pulse Resp BP Pulse Ox 97.4 F L 54 L 18 125/54 L 97 02/27/19 09:20 02/27/19 09:20 02/27/19 09:20 02/27/19 11:20 02/27/19 09:20 - Medications Medications: Current Medications Aspirin (Aspirin Chewable) 81 mg PO DAILY [facility] Last Admin: 02/26/19 10:26 Dose: 81 mg Atenolol (Tenormin) 50 mg PO DAILY [facility] Last Admin: 02/26/19 10:25 Dose: 50 mg Clopidogrel Bisulfate (Plavix) 75 mg PO DAILY [facility] Last Admin: 02/26/19 10:28 Dose: 75 mg Dextrose (Dextrose 50% Inj) 0 ml IV STAT PRN; Protocol PRN Reason: Hypoglycemia Protocol Dextrose (Glutose 15) 0 gm PO ONCE PRN; Protocol PRN Reason: Hypoglycemia Protocol Donepezil HCl (Aricept) 10 mg PO HS [facility] Last Admin: 02/26/19 21:35 Dose: 10 mg Enalapril Maleate (Vasotec) 10 mg PO DAILY [facility] Last Admin: 02/26/19 10:24 Dose: 10 mg Ergocalciferol (Drisdol 50,000 Intl Units Cap) 1 cap PO Q7D [facility] Last Admin: 02/24/19 19:56 Dose: 1 cap Famotidine (Pepcid) 20 mg PO DAILY [facility] Last Admin: 02/26/19 10:27 Dose: 20 mg Glucagon (Glucagen Diagnostic Kit) 0 mg IM STAT PRN; Protocol PRN Reason: Hypoglycemia Protocol Heparin Sodium (Porcine) (Heparin) 5,000 units SC Q12 [facility] Last Admin: 02/19/19 21:04 Dose: 5,000 units Hydralazine HCl (Apresoline) 25 mg PO TID [facility] Last Admin: 02/27/19 10:15 Dose: Not Given Insulin Aspart (Novolog) 0 unit SC ACHS [facility] Last Admin: 02/27/19 08:00 Dose: Not Given Insulin Aspart (Novolog) 4 unit SC AC [facility] Last Admin: 02/27/19 08:30 Dose: 4 units Insulin Glargine (Lantus) 12 unit SC HS [facility] Last Admin: 02/26/19 21:35 Dose: 12 u Montelukast Sodium (Singulair) 10 mg PO DAILY [facility] Last Admin: 02/26/19 10:27 Dose: 10 mg Oxybutynin Chloride (Ditropan Xl) 5 mg PO DAILY [facility] Last Admin: 02/26/19 10:27 Dose: 5 mg Quetiapine Fumarate (Seroquel) 25 mg PO DAILY [facility] Last Admin: 02/26/19 10:28 Dose: 25 mg Repaglinide (Prandin) 2 mg PO ACTID [facility] Last Admin: 02/27/19 08:30 Dose: 2 mg Rosuvastatin Calcium (Crestor) 5 mg PO HS [facility] Last Admin: 02/26/19 21:35 Dose: 5 mg Sevelamer Carbonate (Renvela) 800 mg PO TIDCC [facility] Last Admin: 02/27/19 08:47 Dose: 800 mg Sitagliptin Phosphate (Januvia) 25 mg PO DAILY [facility] Last Admin: 02/26/19 10:27 Dose: 25 mg Tramadol HCl (Ultram) 50 mg PO Q6H PRN PRN Reason: Pain, moderate (4-7) Last Admin: 02/24/19 01:37 Dose: 50 mg Vitamin B Complex/Vit C/Folic Acid (Nephro-Marina) 1 tab PO DAILY [facility] Last Admin: 02/26/19 10:28 Dose: 1 tab - Labs Labs: 02/22/19 07:20 02/24/19 11:22 PT 10.9 SECONDS (9.7-12.2) 02/20/19 09:29 INR 1.0 02/20/19 09:29 APTT 34.9 SECONDS (21-34) H 02/20/19 09:29
[2019-02-27 13:00] VITALS: RESP 16; TEMP 97.1; O2SAT 99
[2019-02-27] MEDS: Multivitamin Vitamin B Complex (Nephro-Vite) Tab PO SCH (13:12)
[2019-02-27 17:13] VITALS: BP 167/65; PULSE 63
--- NOTE | 2019-02-27 18:36 | PN ---
DATE: 02/27/2019 SUBJECTIVE: The patient is alert, oriented. PHYSICAL EXAMINATION: GENERAL: She had dialysis. She is not in distress. There is no chest pain. VITAL SIGNS: Afebrile, blood pressure 116/50, pulse 64, respirations 20. HEART: Regular. No gallop rhythm. LUNGS: Diminished breath sounds. Rhonchi improved. ABDOMEN: Soft. EXTREMITIES: Legs, no edema. LABORATORY DATA: Blood sugar is 109. IMPRESSION: Respiratory insufficiency, exacerbation of chronic obstructive pulmonary disease, coronary artery disease, hypertensive cardiovascular disease, congestive heart failure, arthritis, diabetes mellitus, renal failure, end stage renal disease on dialysis regimen. PLAN: To continue with the current medications including bronchodilators and vasodilators. Discussed with nurse and the patient to continue with renal followup and stick to dialysis regimen and continue with control of diabetes, congestive heart failure and renal failure. Francisco Javier Guaman MD
--- NOTE | 2019-02-27 19:20 | PN ---
DATE: 02/27/2019 LOCATION: Room 558. SUBJECTIVE: This is an 83-year-old female with recent uncontrolled type 2 insulin requiring diabetes with improved metabolic profile overnight was noted and is now being followed closely for metabolic management. She also had an incidental finding of multiple small thyroid nodules confirmed by ultrasound testing as noted. She remains clinically euthyroid and biochemically has a slightly suppressed TSH as noted. Her glucose values have ranged from 109 to 139 and 223 mg/dL. LABORATORY DATA: Her chemistry showed a BUN of 63, sodium 135, potassium was 3.7, chloride was 91, CO2 of 29, glucose 163, and creatinine is 7. Her T4 is 9.92 with a TSH of less than 0.02. This is an 83-year-old female with recent uncontrolled type 2 insulin requiring diabetes, now with improved metabolic profile and continued variability of her oral intake with expected transient glycemic fluctuations as noted thereof. Moreover, she also has a radiologic confirmation of the presence of a multinodular goiter with very small nodules noted bilaterally as reported. Her thyroid ultrasound showed the right lobe measuring 3 x 5.7 and 3.1 cm and the left lobe measuring 5 x 2.2 and 1.7 cm with bilateral small nodules as noted. ASSESSMENT: This is an 83-year-old female with uncontrolled and decompensated type 2 insulin requiring diabetes with improved metabolic profile on a combination of oral hypoglycemic therapy and basal insulin therapy as given. She also is clinically euthyroid with an acute sick euthyroid syndrome and transient TSH suppression thereof, although is biochemically euthyroid otherwise. She also has a radiologic confirmation of the presence of a multinodular goiter with small bilateral thyroid nodules as noted. PLAN OF MANAGEMENT: We will hold off the thyroid scan and update testing as this could be done on an outpatient and there is still no clinical imperative at this time to pursue these nodules as they are quite small and with the presence of a multinodular goiter. We will repeat the thyroid studies however in the next 2 to 3 months to determine the improvement of the TSH values and if it remains suppressed, then she may indeed have the so-called subclinical hyperthyroidism with an underlying diffuse toxic goiter, and may need medical therapy as indicated. We will continue the basal insulin given as Lantus at 12 units subcu at bedtime daily as ordered. We will also continue the oral hypoglycemic drug therapy with Januvia given as 25 mg daily and Prandin given as 2 mg t.i.d. with meals as ordered. We will obtain serial chemistries and supplement accordingly as needed. We will follow. Bella Gold MD
--- NOTE | 2019-02-27 22:10 | CP.PCM.DIS ---
Provider - Provider Date of Admission: 02/16/19 06:13 Attending physician: Valdez Mccracken MD Consults: 02/16/19 05:54 Physician Consult Routine Comment: Consulting Provider: Kanika Diaz Consulting Physician: Kanika Diaz Reason for Consult: hd 02/16/19 07:09 Physician Consult Routine Comment: Consulting Provider: Francisco Javier Guaman Consulting Physician: Francisco Javier Guaman Reason for Consult: wheezing Additional Comments: 02/16/19 11:29 Inpatient MILL ORDER SCHEDULER Core Measures Referral Routine Comment: Physician Instructions: Reason For Exam: CHF Nursing Referral for Palliative Care Routine Comment: Physician Instructions: Reason For Exam: CHF, ESRD on HD with multiple admissions 02/16/19 13:10 Cardiology Consult Routine Comment: Consulting Provider: Efren Mei Consulting Physician: Efren Mei Reason for Consult: (+) troponin uptrending 02/19/19 09:57 Vascular Surgery Routine Comment: Consulting Provider: Damion Mccormick Jr. Physician Instructions: Reason For Exam: Non working permacath inspite of Alteplase 02/21/19 17:17 Physician Consult Routine Comment: Consulting Provider: Bella Gold Consulting Physician: Bella Gold Reason for Consult: hyperglycemia Time Spent in preparation of Discharge (in minutes): 26 Diagnosis - Discharge Diagnosis (1) Diverticulosis Status: Acute (2) Elevated troponin Status: Acute (3) Hyperglycemia Status: Acute (4) Chronic kidney disease with end stage renal failure on dialysis Status: Chronic Priority: Medium (5) ASHD (arteriosclerotic heart disease) Status: Acute (6) Diabetes mellitus Status: Acute Priority: Medium (7) Thyroid nodule Status: Acute (8) AV fistula occlusion Status: Acute Hospital Course - Lab Results Lab Results: Micro Results 02/16/19 07:01 Blood Blood Culture - Final NO GROWTH AFTER 5 DAYS 02/16/19 07:01 Blood Gram Stain - Final TEST NOT PERFORMED 02/16/19 07:01 Blood Blood Culture - Final NO GROWTH AFTER 5 DAYS 02/16/19 07:01 Blood Gram Stain - Final TEST NOT PERFORMED Most Recent Lab Values WBC 6.6 K/uL (4.8-10.8) 02/22/19 07:20 RBC 3.82 Mil/uL (3.80-5.20) 02/22/19 07:20 Hgb 10.1 g/dL (11.0-16.0) L 02/22/19 07:20 Hct 31.0 % (34.0-47.0) L 02/22/19 07:20 MCV 81.0 fL (81.0-99.0) 02/22/19 07:20 MCH 26.5 pg (27.0-31.0) L 02/22/19 07:20 MCHC 32.7 g/dL (33.0-37.0) L 02/22/19 07:20 RDW 21.0 % (11.5-14.5) H 02/22/19 07:20 Plt Count 163 K/uL (130-400) 02/22/19 07:20 MPV 9.4 fL (7.2-11.7) 02/22/19 07:20 Neut % (Auto) 59.6 % (50.0-75.0) 02/20/19 09:29 Lymph % (Auto) 20.2 % (20.0-40.0) 02/20/19 09:29 Fajardo % (Auto) 16.1 % (0.0-10.0) H 02/20/19 09:29 Eos % (Auto) 3.3 % (0.0-4.0) 02/20/19 09:29 Baso % (Auto) 0.8 % (0.0-2.0) 02/20/19 09:29 Neut # (Auto) 4.0 K/uL (1.8-7.0) 02/20/19 09:29 Lymph # (Auto) 1.4 K/uL (1.0-4.3) 02/20/19 09:29 Fajardo # (Auto) 1.1 K/uL (0.0-0.8) H 02/20/19 09:29 Eos # (Auto) 0.2 K/uL (0.0-0.7) 02/20/19 09:29 Baso # (Auto) 0.1 K/uL (0.0-0.2) 02/20/19 09:29 Neutrophils % (Manual) 90 % (50-75) H 02/16/19 05:18 Lymphocytes % (Manual) 5 % (20-40) L 02/16/19 05:18 Monocytes % (Manual) 5 % (0-10) 02/16/19 05:18 Platelet Estimate Normal (NORMAL) 02/16/19 05:18 PT 10.9 SECONDS (9.7-12.2) 02/20/19 09:29 INR 1.0 02/20/19 09:29 APTT 34.9 SECONDS (21-34) H 02/20/19 09:29 Puncture Site Lra 02/16/19 14:48 pCO2 31 mm/Hg (35-45) L 02/16/19 14:48 pO2 124 mm/Hg (80-100) H 02/16/19 14:48 HCO3 22.5 mmol/L (21-28) 02/16/19 14:48 ABG pH 7.43 (7.35-7.45) 02/16/19 14:48 ABG Total CO2 21.6 mmol/L (22-28) L 02/16/19 14:48 ABG O2 Saturation 99.4 % (95-98) H 02/16/19 14:48 ABG Base Excess -3.1 mmol/L (-2.0-3.0) L 02/16/19 14:48 ABG Hemoglobin 9.2 g/dL (11.7-17.4) L 02/16/19 14:48 ABG Carboxyhemoglobin 1.3 % (0.5-1.5) 02/16/19 14:48 POC ABG HHb (Measured) 0.6 % (0.0-5.0) 02/16/19 14:48 ABG Methemoglobin 0.7 % (0.0-3.0) 02/16/19 14:48 Mohinder Test Yes 02/16/19 14:48 VBG pH 7.36 (7.32-7.43) 02/16/19 05:20 VBG pCO2 41 mmHg (40-60) 02/16/19 05:20 VBG HCO3 22.1 mmol/L 02/16/19 05:20 VBG Total CO2 24.5 mmol/L (22-28) 02/16/19 05:20 VBG O2 Sat (Calc) 59.9 % (40-65) 02/16/19 05:20 VBG Base Excess -2.2 mmol/L (0.0-2.0) L 02/16/19 05:20 VBG Potassium 5.3 mmol/L (3.6-5.2) H 02/16/19 05:20 Hgb O2 Saturation 97.3 % (95.0-98.0) 02/16/19 14:48 Sodium 132.0 mmol/l (132-148) 02/16/19 05:20 Chloride 96.0 mmol/L (98-107) L 02/16/19 05:20 Glucose 572 mg/dl (65-105) H* D 02/16/19 05:20 Lactate 2.2 mmol/L (0.7-2.1) H 02/16/19 05:20 Liter Flow 2.0 02/16/19 14:48 Blood Gas Comments Glu 572 02/16/19 05:20 Crit Value Called To 02/16/19 05:20 Crit Value Called By Nicolas cervantes 02/16/19 05:20 Crit Value Read Back Y 02/16/19 05:20 Blood Gas Notified Time 530 02/16/19 05:20 Sodium 135 mmol/L (132-148) 02/24/19 11:22 Potassium 3.7 mmol/L (3.6-5.2) 02/24/19 11:22 Chloride 91 mmol/L (98-107) L 02/24/19 11:22 Carbon Dioxide 29 mmol/L (22-30) 02/24/19 11:22 Anion Gap 19 (10-20) 02/24/19 11:22 BUN 63 mg/dL (7-17) H 02/24/19 11:22 Creatinine 7.0 mg/dL (0.7-1.2) H 02/24/19 11:22 Est GFR ( Amer) 7 02/24/19 11:22 Est GFR (Non-Af Amer) 6 02/24/19 11:22 POC Glucose (mg/dL) 109 mg/dL (65-110) 02/27/19 11:17 Random Glucose 163 mg/dL (65-105) H D 02/24/19 11:22 Hemoglobin A1c 11.3 % (4.2-6.5) H 02/22/19 07:20 Calcium 9.4 mg/dl (8.6-10.4) 02/24/19 11:22 Phosphorus 5.6 mg/dL (2.5-4.5) H 02/24/19 11:22 Magnesium 2.4 mg/dL (1.6-2.3) H 02/24/19 11:22 Total Bilirubin 0.5 mg/dL (0.2-1.3) 02/24/19 11:22 AST 31 U/L (14-36) 02/24/19 11:22 ALT 23 U/L (9-52) 02/24/19 11:22 Alkaline Phosphatase 118 U/L (38-126) 02/24/19 11:22 Troponin I 0.1090 ng/mL (0.00-0.120) 02/18/19 07:35 NT-Pro-B Natriuret Pep 95745 pg/mL (0-900) H 02/16/19 05:18 Total Protein 6.9 g/dL (6.3-8.3) 02/24/19 11:22 Albumin 4.1 g/dL (3.5-5.0) 02/24/19 11:22 Globulin 2.8 gm/dL (2.2-3.9) 02/24/19 11:22 Albumin/Globulin Ratio 1.5 (1.0-2.1) 02/24/19 11:22 Triglycerides 87 mg/dL (0-149) D 02/22/19 07:20 Cholesterol 104 mg/dL (0-199) 02/22/19 07:20 LDL Cholesterol Direct 36 mg/dL (0-129) 02/22/19 07:20 HDL Cholesterol 61 mg/dL (30-70) 02/22/19 07:20 Lipase 120 U/L (23-300) 02/16/19 05:18 Free T4 1.74 ng/dL (0.78-2.19) 02/16/19 11:16 Thyroxine (T4) 9.92 ug/dL (5.5-11.0) 02/24/19 11:22 TSH 3rd Generation < 0.02 mIU/L (0.46-4.68) L 02/24/19 11:22 Venous Blood Potassium 5.3 mmol/L (3.6-5.2) H 02/16/19 05:20 Cycl Citrul Peptide IgG <16 Units 02/17/19 06:38 Discharge Exam - Head Exam Head Exam: NORMOCEPHALIC - Eye Exam Eye Exam: Normal appearance Pupil Exam: NORMAL ACCOMODATION - ENT Exam ENT Exam: Normal Exam - Neck Exam Neck exam: Normal Inspection, Thyromegaly - Respiratory Exam Respiratory Exam: Decreased Breath Sounds - Cardiovascular Exam Cardiovascular Exam: REGULAR RHYTHM - GI/Abdominal Exam GI & Abdominal Exam: Tenderness - Extremities Exam Extremities exam: tenderness - Back Exam Back exam: NORMAL INSPECTION - Neurological Exam Neurological exam: Altered - Psychiatric Exam Psychiatric exam: Depressed - Skin Skin Exam: Dry Discharge Plan - Discharge Medications Prescriptions: Ergocalciferol [Drisdol 50,000 Intl Units Cap] 1 cap PO Q7D 30 Days cap Vitamin B Complex/Vit C/Folic [Nephro-Marina] 1 tab PO DAILY 30 Days tab Repaglinide [Prandin] 2 mg PO ACTID 30 Days tab - Follow Up Plan Condition: STABLE Disposition: HOME/ ROUTINE Instructions: Dialysis Diet , COPD Including Emphysema (DC), Heart Failure, Adult (DC), Ergocalciferol, Repaglinide Additional Instructions: Follow up with Dr. Mccracken in 1 week Follow up with Dr. Mei in 2-3 weeks Follow up with Dr. Guaman in 2-3 weeks Follow up with Dr. Gold in 2-3 weeks HD MWF Resume all home medications Activity as tolerated Call Dr. Mccracken or go to the emergancy room if symptoms return or worsen Discuss with patient and family who agree and verbalized understanding Referrals: Bella Gold MD [Medical Doctor] - (Follow up in 2-3 weeks) Valdez Mccracken MD [Staff Provider] - 1 Week Kanika Diaz MD [Staff Provider] - Efren Mei MD [Staff Provider] - (Follow up in 2-3 weeks) Francisco Javier Guaman MD [Staff Provider] - (Follow up in 2-3 weeks)
== END 2019-02-27 18:37 | disposition home or self-care (01) | DRG 377 ==
LOC: C.ER 04:40 → C.9E 06:13 → C.5S 06:56
PROVIDERS: ADMIT Internal Medicine; ATTEND Internal Medicine
PROC: 5A1D70Z Performance of Urinary Filtration, Intermittent, Less than 6 Hours Per Day (ICD-10-PCS; principal; 2019-02-16)
DX: K57.31 Diverticulosis of large intestine without perforation or abscess with bleeding (principal); N18.6 End stage renal disease; I13.2 Hypertensive heart and chronic kidney disease with heart failure and with stage 5 chronic kidney disease, or end stage renal disease; T82.898A Other specified complication of vascular prosthetic devices, implants and grafts, initial encounter; E11.65 Type 2 diabetes mellitus with hyperglycemia; Z99.2 Dependence on renal dialysis; I50.9 Heart failure, unspecified; E11.21 Type 2 diabetes mellitus with diabetic nephropathy; E11.22 Type 2 diabetes mellitus with diabetic chronic kidney disease; E11.42 Type 2 diabetes mellitus with diabetic polyneuropathy; F32.9 Major depressive disorder, single episode, unspecified; E78.00 Pure hypercholesterolemia, unspecified; H54.7 Unspecified visual loss; Z86.73 Personal history of transient ischemic attack (TIA), and cerebral infarction without residual deficits; M19.90 Unspecified osteoarthritis, unspecified site; K21.9 Gastro-esophageal reflux disease without esophagitis; F41.9 Anxiety disorder, unspecified; I25.10 Atherosclerotic heart disease of native coronary artery without angina pectoris; D63.1 Anemia in chronic kidney disease; E87.5 Hyperkalemia; E11.319 Type 2 diabetes mellitus with unspecified diabetic retinopathy without macular edema; Z79.4 Long term (current) use of insulin; E04.2 Nontoxic multinodular goiter; E07.81 Sick-euthyroid syndrome; E78.5 Hyperlipidemia, unspecified; F03.90 Unspecified dementia, unspecified severity, without behavioral disturbance, psychotic disturbance, mood disturbance, and anxiety; F41.1 Generalized anxiety disorder; J43.9 Emphysema, unspecified; Z87.440 Personal history of urinary (tract) infections; Y83.2 Surgical operation with anastomosis, bypass or graft as the cause of abnormal reaction of the patient, or of later complication, without mention of misadventure at the time of the procedure; I67.9 Cerebrovascular disease, unspecified; E11.649 Type 2 diabetes mellitus with hypoglycemia without coma; R06.89 Other abnormalities of breathing